=== PATIENT | female | born 1960 | race Caucasian/White ===

== ENCOUNTER → 2016-06-05 | Outpatient (CLI) | payer OTHER ==
[~2016-06-05] MED LIST: ALBUAER2; ASPEC81 PO; CLON1TAB3 PO; COQ10100 PO; CYM/30 PO; FISHOIL PO; FRRS300 PO; GLUCTAB7; LISI5TAB3 PO; MINO100C22 PO; MULT-222; PREG1CAP70 PO; SIMV40TA2 PO; SYMIN160 INH; TIOTCAP INH; TOVIAZ PO; TRAM-10 PO; TRAZ100T29 PO; [UNRECOGNIZED DRUG - OTHER]
--- NOTE | 2016-06-05 15:31 | DIAGNOSTIC IMAGING REPORT ---
RIGHT SHOULDER 3 VIEWS CLINICAL HISTORY: Right shoulder pain. FINDINGS: 3 views of the right shoulder are obtained. No prior studies are available for comparison at the time of dictation. The skeletal structures are osteopenic. No fracture or dislocation is seen. Mild productive change is identified at the acromioclavicular joint. The overlying soft tissues are within normal limits. Imaged right lung parenchyma appears clear. Midline sternotomy wires are noted. IMPRESSION: Mild degenerative change as above. No acute bony abnormality is seen in the right shoulder. Electronically signed by: Biju Cardona M.D. 06/05/2016 3:28 PM Dictated Date/Time: 06/05/2016 3:28 PM
== END | disposition home or self-care (01) ==
LOC: C.RAD1850 15:16
PROVIDERS: ATTEND Internal Medicine
DX: M25.511 Pain in right shoulder (principal)

== ENCOUNTER → 2016-06-05 | Outpatient (CLI) | payer OTHER | END | disposition home or self-care (01) | LOC: C.LABBFT 14:32 | PROVIDERS: ATTEND Internal Medicine | DX: M85.80 Other specified disorders of bone density and structure, unspecified site (principal) ==

== ENCOUNTER → 2016-07-15 | Outpatient (CLI) | payer OTHER ==
[~2016-07-15] MED LIST changes: +PERFLUTREN LIPID MICROSPHERE (DEFINITY) IV ONE
--- NOTE | 2016-07-15 19:06 | ECHOCARDIOGRAM REPORT ---
*NOTICE TO RECEIVING DEMOCRAT AGENCY This information is strictly Confidential and protected under [place] law. [place] law prohibits you from making any further disclosure of this information unless further disclosure is expressly permitted by the written consent of the person to whom it pertains or is authorized by law. A general authorization for the release of medical or other information is not sufficient for this purpose. Hospital accepts no responsibility if the information is made available to any other person, INCLUDING THE PATIENT. Interpretation Summary * Name: DEANDRE THOMPSON Study Date: 07/15/2016 01:40 PM BP: 111/37 mmHg * Patient Location: [facility] HR: 56 * : 1960 (M/d/yyyy) Gender: Female Height: 64 in * Age: 56 yrs Ethnicity: CA Weight: 180 lb * Ordering Physician: Ga Villareal * Referring Physician: Ga Villareal * Performed By: Richelle Wyatt RDCS * * Reason For Study: COPD * BSA: 1.9 m2 * History: COPD * -- Conclusions -- * 1. Normal LV size and wall thickness. * 2. Normal LV function. LVEF 55-60%. Paradoxical septal motion consistent with post-operative state. * 3. RV not well visualized. Grossly normal RV function. * 4. Status post mitral valve repair with annuloplasty ring. No mitral regurgitation. Minimally elevated transvalvular gradients (MG 4 mmHg). * 5. Compared with prior study on 08/01/2010: Mitral valve repair is new. Procedure Details * A contrast injection of Definity was performed to improve assessment of LV function. * Contrast was injected into an intravenous site in the right arm. * One vial of Definity ultrasound contrast was diluted in normal saline to a total volume of 10 ml. A total of '2' ml of solution was administered during imaging. * Lot # [id number] of Definity utilized for procedure. * Expiration date 1 JUL 18. * The attending nurse who injected the contrast agent was JUANPABLO GARSIA RN. Left Ventricle * The left ventricle is grossly normal size. * There is normal left ventricular wall thickness. * Ejection Fraction = 55-60%. * Septal motion is consistent with post-operative state. Right Ventricle * The right ventricle is not well visualized. * The right ventricular systolic function is qualitatively normal. Atria * The left atrial size is normal. * Right atrium not well visualized. * No ASD detected; PFO is not assessed. Mitral Valve * Transvalvular gradients minimally elevated. * Significant mitral regurgitation is absent. * An annuloplasty ring is noted in the mitral position. Tricuspid Valve * The tricuspid valve is not well visualized, but is grossly normal. * There is no tricuspid stenosis. * There is trace tricuspid regurgitation. * Right ventricular systolic pressure is normal. Aortic Valve * The aortic valve opens well. * No hemodynamically significant valvular aortic stenosis. * There is no significant aortic regurgitation. Pulmonic Valve * The pulmonary valve is inadequately visualized, but the Doppler data is adequate for interpretation. * There is no pulmonic valvular stenosis. * Trace pulmonic valvular regurgitation. Great Vessels * The aortic root and proximal ascending aorta are normal sized. Pericardium/Pleural * There is no pericardial effusion. * There is no pleural effusion. Great Vessels * Not well visualized MMode 2D Measurements and Calculations IVSd 1.1 cm IVSs 1.7 cm LVIDd 5.3 cm LVIDs 3.5 cm LVPWd 1.1 cm LVPWs 1.5 cm IVS/LVPW 0.93 FS 34.3 % EDV(Teich) 134.2 ml ESV(Teich) 49.7 ml EF(Teich) 62.9 % EDV(cubed) 147.2 ml ESV(cubed) 41.7 ml EF(cubed) 71.7 % % IVS thick 61.0 % % LVPW thick 31.3 % LV mass(C)d 223.6 grams LV mass(C)dI 119.5 grams/m\S\2 LV mass(C)s 209.7 grams LV mass(C)sI 112.1 grams/m\S\2 SV(Teich) 84.5 ml SI(Teich) 45.2 ml/m\S\2 SV(cubed) 105.6 ml SI(cubed) 56.4 ml/m\S\2 Ao root diam 2.6 cm Ao root area 5.3 cm\S\2 LA dimension 3.7 cm LA/Ao 1.4 LVAd ap4 27.6 cm\S\2 LVLd ap4 7.1 cm EDV(MOD-sp4) 89.0 ml EDV(sp4-el) 91.3 ml LVAs ap4 16.0 cm\S\2 LVLs ap4 5.7 cm ESV(MOD-sp4) 37.5 ml ESV(sp4-el) 38.1 ml EF(MOD-sp4) 57.9 % EF(sp4-el) 58.2 % LVAd ap2 27.0 cm\S\2 LVLd ap2 7.6 cm EDV(MOD-sp2) 81.4 ml EDV(sp2-el) 82.1 ml LVAs ap2 16.0 cm\S\2 LVLs ap2 5.8 cm ESV(MOD-sp2) 38.7 ml ESV(sp2-el) 37.3 ml EF(MOD-sp2) 52.5 % EF(sp2-el) 54.6 % LVLd %diff 6.6 % EDV(MOD-bp) 88.0 ml LVLs %diff 1.2 % ESV(MOD-bp) 37.2 ml EF(MOD-bp) 57.7 % SV(MOD-sp4) 51.5 ml SI(MOD-sp4) 27.5 ml/m\S\2 SV(MOD-sp2) 42.7 ml SI(MOD-sp2) 22.8 ml/m\S\2 SV(MOD-bp) 50.8 ml SI(MOD-bp) 27.2 ml/m\S\2 SV(sp4-el) 53.1 ml SI(sp4-el) 28.4 ml/m\S\2 SV(sp2-el) 44.8 ml SI(sp2-el) 24.0 ml/m\S\2 Doppler Measurements and Calculations MV E max meghann 189.8 cm/sec MV A max meghann 128.3 cm/sec MV E/A 1.5 MV dec time 0.34 sec Ao V2 max 163.7 cm/sec Ao max PG 10.7 mmHg Ao max PG (full) 4.3 mmHg LV V1 max PG 6.4 mmHg LV V1 max 126.9 cm/sec TR max meghann 222.5 cm/sec
== END | disposition home or self-care (01) ==
LOC: C.CPL 12:20
PROVIDERS: ATTEND Internal Medicine Interventional Cardiology
DX: J44.9 Chronic obstructive pulmonary disease, unspecified (principal)

== ENCOUNTER → 2016-11-03 | Outpatient (CLI) | payer OTHER ==
[~2016-11-03] MED LIST changes: -PERFLUTREN LIPID MICROSPHERE (DEFINITY) IV ONE
[2016-11-03 17:32] LABS: MEAN CELL VOLUME 101.3 fL (80-100); MEAN CORPUSCULAR HEMOGLOBIN 33.5 pg (25-34); MEAN CORPUSCULAR HGB CONC 33.1 g/dl (32-36); MEAN PLATELET VOLUME 12.5 fL (7.4-10.4); PLATELET COUNT 162 K/uL (130-400); RED BLOOD COUNT 3.85 M/uL (4.2-5.4); WHITE BLOOD COUNT 8.04 K/uL (4.8-10.8)
[2016-11-03 18:01] LABS: ALT/SGPT 34 U/L (12-78); AST/SGOT 18 U/L (15-37); BLOOD UREA NITROGEN 19 mg/dl (7-18); BUN/CREATININE RATIO 17.1 (10-20); CALCIUM 9.3 mg/dl (8.5-10.1); CARBON DIOXIDE 26 mmol/L (21-32); CHLORIDE 107 mmol/L (98-107); GLUCOSE 93 mg/dl (70-99); POTASSIUM 4.6 mmol/L (3.5-5.1); SODIUM 139 mmol/L (136-145)
[2016-11-03 18:09] LABS: ALB/GLOB RATIO 0.9 (0.9-2); ALKALINE PHOSPHATASE 180 U/L (45-117)
== END | disposition home or self-care (01) ==
LOC: C.LABBFT 10:24
PROVIDERS: ATTEND Physician Assistant Medical
DX: E03.9 Hypothyroidism, unspecified (principal); R53.83 Other fatigue

== ENCOUNTER → 2016-11-09 | Outpatient (CLI) | payer OTHER ==
--- NOTE | 2016-11-09 09:08 | DIAGNOSTIC IMAGING REPORT ---
THYROID ULTRASOUND HISTORY: Abnormal thyroid function tests E03.9 Hypothyroidism COMPARISON: None. FINDINGS: Right lobe: Maximum dimension 3.7 cm. Uniform echogenicity. Left lobe: Maximum dimension 3.9 cm. Uniform echogenicity. Isthmus: No nodules. IMPRESSION: Normal thyroid ultrasound. Electronically signed by: Inderjit Hirsch M.D. 11/09/2016 9:07 AM Dictated Date/Time: 11/09/2016 9:05 AM
== END | disposition home or self-care (01) ==
LOC: C.ULTR 08:34
PROVIDERS: ATTEND Internal Medicine
DX: E03.9 Hypothyroidism, unspecified (principal)

== ENCOUNTER → 2017-02-09 | Outpatient (CLI) | payer OTHER ==
[~2017-02-09] VITALS: Ht 154.9 cm; Wt 80.8 kg
[2017-02-09 14:20] VITALS: BP 114/52; PULSE 51; Ht 154.9 cm; Wt 80.8 kg
== END | disposition home or self-care (01) ==
LOC: C.NEUR 13:30
PROVIDERS: ATTEND Physician Assistant Medical
DX: R53.83 Other fatigue (principal); G47.9 Sleep disorder, unspecified; R06.83 Snoring; I25.10 Atherosclerotic heart disease of native coronary artery without angina pectoris; J44.9 Chronic obstructive pulmonary disease, unspecified; E78.00 Pure hypercholesterolemia, unspecified; E03.9 Hypothyroidism, unspecified; M85.80 Other specified disorders of bone density and structure, unspecified site; I25.2 Old myocardial infarction; Z87.891 Personal history of nicotine dependence; Z87.442 Personal history of urinary calculi; Z90.49 Acquired absence of other specified parts of digestive tract; Z90.89 Acquired absence of other organs; Z80.3 Family history of malignant neoplasm of breast; Z83.3 Family history of diabetes mellitus; Z79.82 Long term (current) use of aspirin

== ENCOUNTER → 2017-03-16 | Outpatient (CLI) | payer OTHER ==
--- NOTE | 2017-03-17 06:03 | PAP/PSG TECHNICIAN REPORT ---
[facility] Fountain Worker Polysomnogram Report Study name: None Report date: 03/17/2017 Study date: 03/16/2017 Referring Physician: Bell Olson PA-C Name: DEANDRE THOMPSON Interpreting Physician: Leon Little M.D. Date of : 1960 Fountain Worker: Nina Rodriguez RPSGT. Sex: Female Age: 56 Study Type: PSG Weight: 178 lbs 15.25 in Height: 56 years, Height 5' 2" Neck Circum: BMI: 32.55 Medications: ASPIRIN 81 MG, CLINDAMYCIN 300 MG, CLONAZEPAM 1 MG, CYMBALTA 60 MG, IPRATROPIUM BROMIDE 0.06% NASAL SOLN, LEVOTHYROXINE 75 MCG, LISINOPRIL 5 MG, LYRICA 150 MG, METOPROLOL 25 MG, SIMVASTATIN 40 MG, SPIRIVA HANDIHALER 18 MCG, SULFAMETHOXAZOLE-TRIMETHOPRIM 800-160 MG, TOPIRAMATE 100 MG, TRAMADOL 50 MG, TRAZODONE 100 MG, VENTOLIN HFA, VIT D3 400 UNIT Patient History 56 yr-old female here for a baseline study. She has a history of snoring, daytime sleepiness, and sleep maintenance and sleep onset insomnia. Her [employer] scale is 4. The test was started on room air. ETCO2 testing was included in this study. Room 5 Parameters Monitored NPSG: E1-M2, E2-M1, Fp1-M2, Fp2-M1, F3-M2, F4-M2, F4-M1, C3-M2, C4-M2, C4-M1, O1-M2, O2-M2, O2-M1, T3-M2, T4-M1, P3-M2, P4-M1, CHIN1, CHIN2, HR, EKG, Legs, PFLOW, SNOR, FLOW, CFLOW, Tidal Volume, THOR, ABDO, SpO2, PLTH, CPRESS, ETCO2 Wave, ETCO2, pH Sleep Architecture Sleep Stages Time at Lights Off 10:57:26 PM STAGES Time (min.) TST (%) Time at Lights On 5:43:26 AM Wake 51.0 -- Total Recording Time (TRT) 406.00 min. N1 44.5 13 Total Sleep Period (TSP) 385.5 min. N2 283.5 80 Total Sleep Time (TST) 355.0min. N3 27.0 8 Awake Time 51.0 min. REM 0.0 0 Wake after Sleep Onset 30.5 min. Sleep Efficiency (SE) 87 % Sleep Onset Latency (LYNDA) 20.5 min. Number of Stage 1 Shifts None Awakenings 14 Stage Changes 98 Number of REM periods N/A REM 0.0 0 REM Latency NONE min. NREM 355.0 100 Body Position Analysis Supine Right Left Side Prone Vertical Total Sleep Time (min.) 103.6 243.9 32.0 275.86 0.0 0.3 Total Sleep Time (%) 22% 69% 9% 78 0% N/A% Total Sleep Time REM (min.) 0.0 0.0 0.0 None 0.0 0.0 Total Sleep Time NREM (min.) 79.1 243.9 32.0 None 0.0 0.0 Intermittent Wake (min.) 24.5 6.5 19.4 None 0.0 0.3 Total Sleep Period (%) 26% None None None None None Arousals Myoclonus (PLM) * Events Count Index Events Count Index Spontaneous 39 7 Events Awake (PLMW) 78 91.8 Respiratory 2 0.3 Events Asleep w/ Arousal (PLMA) 13 2.2 PLM 13 2 Events Asleep w/o Arousal (PLMS) 205 34.6 Snoring 4 1 Total Asleep 218 36.8 Total 58 10 Total 296 44 Respiratory Analysis * CA OA MA CH H RERA Total Count 0 3 0 0 2 2 5 Index 0.0 0.5 0.0 0 0.3 0 1.2 Mean Duration 0.0 16.5 0.0 0.00 22.8 17.1 18.5 Longest Duration 0.0 18.2 0.0 0.00 0.0 17.3 23.4 Respiratory Event Summary Total Supine ~Supine Right Left Prone REM NREM Apneas Count 3 3 0 0 0 N/A N/A 3 Index 0.5 2 0 0.0 0.0 N/A N/A 1 Hypopneas (4% Desat) Count 2 2 0 0 0 N/A N/A 2 Index 0.3 1.5 0 0.0 0.0 N/A N/A 0.3 Apneas & All Hypopneas Count 5 5 0 0 0 N/A N/A 5 Index 0.8 4 0 0 0 N/A N/A 0.8 Respiratory Events (Malter Operator+All Hyp+RERA) Count 5 7 0 0 0 N/A N/A 5 Index 1.2 5 0 0.0 0.0 N/A N/A 1.2 Respiratory Related Arousal Count 2 7 0 0 0 N/A N/A 2 Index 0.3 2 0 0 0 N/A N/A 0 Snoring Analysis Supine Right Left Prone REM NREM Total Snore duration 22.7 min Snores count 786 208 18 N/A N/A 1,012 1,012 Snore mean duration 1.3 Sec Snores index 596 51 34 N/A N/A 171.0 171.0 TST with snoring (%) 6.4% SpO2 Analysis Total REM NREM Awake <50% 0.0 min. 0.0 min. 0.0 min. 0.0 min. 51 - 60% 0.0 min. 0.0 min. 0.0 min. 0.0 min. 61 - 70% 0.0 min. 0.0 min. 0.0 min. 0.0 min. 71 - 80% 0.0 min. 0.0 min. 0.0 min. 0.0 min. 81 - 90% 80.7 min. 0.0 min. 76.5 min. 4.2 min. 91 - 100% 316.0 min. 0.0 min. 277.5 min. 38.5 min. Average 92 0 92 93 Minimum SpO2 85 N/A 85 88 Desaturation Event Index 1.5 0.0 1.5 1.2 # Desat. Events below 89% 4 N/A 4 N/A Time(%) with Saturation below 89% 3.9 0.0 3.7 0.2 Time(min.) with Saturation below 89% 15.5 0.0 14.7 0.8 Heart Rate Analysis End Tidal CO2 Analysis Min (bpm) Max (bpm) Average (bpm) TSP (mins) % of TSP Awake 53 60 56 Above 55 mmHg 0.0 0.0 NREM 48 73 53 50-55 mmHg 0.0 0.0 REM N/A N/A N/A 45-50 mmHg 0.0 0.0 Overall 48 73 53 40-45 mmHg 7.8 2.2 35-40 mmHg 225.8 63.6 30-35 mmHg 64.6 18.2 Average ETCO2 0.3 Supplemental O2 Values Minimum O2 level: None Value Start Time End Time Fountain Worker Comments Ms. Thompson slept in the right, left, and supine positions. No cardiac arrhythmias were noted. PLMs were noted. A few episodes of bruxism were noted. Snoring was noted and scored as a 1-2 on a scale of 1 through 5. (0=no snoring, 5=snoring loud enough to be heard through a closed door or down the murireta way) She awoke to use the restroom one time during the night. Ms. Thompson stated that she slept about the same as usual. The final report will be interpreted and signed by a sleep physician. The completed physician report will then be placed in the patient medical record. Therapy (cm H2O) 0 TIB (min.) 406.0 TST (min.) 355.0 Sleep Onset (min.) 20.5 REM Onset From Sleep (min.) NONE Sleep Efficiency % 87 Wakefulness (%) 13 Wakefulness (min.) 51.0 NREM 1 (%) 13 NREM 1 (min.) 44.5 NREM 2 (%) 80 NREM 2 (min.) 283.5 NREM 3 (%) 8 NREM 3 (min.) 27.0 REM (%) 0 REM (min.) 0.0 # Arousals 58 Arousal Index 10 # Snore 1,012 Snore Index 171.0 AHI 0.8 AHI Supine 4 AHI Non-Supine 0 NREM AHI 0.8 REM AHI N/A RDI 1.2 # Obstructive Apnea 3 # Central Apnea 0 # Mixed Apnea 0 # Hypopneas 2 RERAs 2 Total Respiratory Events 7 Time Below SpO2 89% (min.) 14.7 Mean NREM SpO2 (%) 92 Mean REM SpO2 (%) N/A Mean Sleep SpO2 (%) 92 Min NREM SpO2 (%) 85 Min REM SpO2 (%) N/A Position Supine (min.) 103.6 Position Non-supine (min.) 275.9 LM Index Sleep 36.8 LM Index NREM 36.8 LM Index REM N/A Mean Heart Rate (bpm) 53 Min Heart Rate (bpm) 48
--- NOTE | 2017-03-19 14:24 | POLYSOMNOGRAPH REPORT ---
CLINICAL DATA: A 56-year-old female with BMI of 32.6 referred by Bell Olson and Dr. Lancaster with history of snoring, daytime fatigue, sleep maintenance and sleep onset insomnia. Her Negley sleepiness score is 4/24. SLEEP ARCHITECTURE: Total sleep period was 385.5 minutes. Total sleep time was 355 minutes, all non-REM sleep. Sleep onset latency was 20.5 minutes. Sleep efficiency was 87%. Wake after sleep onset was 30.5 minutes. Sleep consisted of stage N1 13%, stage N2 80%, and stage N3 8%. AROUSAL DATA: Fifty-eight arousals were recorded for an index of 10 per hour. PLM DATA: Yjm-[id number]-zomkjgki limb movements during sleep were noted for an index of 36.8 per hour with arousal index of 2.2 per hour. RESPIRATORY DATA: There was no evidence of clinically significant sleep apnea seen. The AHI was 0.8. The RDI was 1.2. There were 3 obstructive apneic episodes, the longest duration of which was 18.2 seconds. There were 2 hypopneic episodes with a mean duration of 22.8 seconds. There were 2 RERA's, with longest RERA being 17.3 seconds. OXIMETRY DATA: Transient hypoxemia was seen. Oxygen lyudmila was 85%. Mean saturation was 92%. Time below 89% was 15 minutes. EKG: Heart rates ranged from 48-73 beats per minute. No arrhythmias were noted. CRYSTAL REPORT DEVELOPER'S COMMENTS: The patient slept in the right, left, and supine positions. Snoring was mild, rated 1-2 on a scale of 1-5. There were a few episodes of bruxism noted. Mildly elevated limb movements during sleep were noted as well. IMPRESSION: 1. No evidence of clinically significant sleep apnea/hypopnea or nocturnal hypoxemia. 2. Occasional episodes of bruxism. 3. Mild increase in limb movements during the night, possibly consistent with PLMD. RECOMMENDATIONS: The patient should continue to practice good sleep hygiene. Use of a dental appliance for bruxism may be of benefit. Clinical correlation is needed. [facility]
== END | disposition home or self-care (01) ==
LOC: C.NEUR 21:00
PROVIDERS: ATTEND Physician Assistant Medical
DX: R53.83 Other fatigue (principal); R06.83 Snoring; G47.63 Sleep related bruxism

== ENCOUNTER → 2017-09-14 | Outpatient (CLI) | payer OTHER | END | disposition home or self-care (01) | LOC: C.LAB 15:10 | PROVIDERS: ATTEND Physician Assistant Medical | DX: R19.7 Diarrhea, unspecified (principal) ==

== ENCOUNTER → 2017-09-27 | Outpatient (CLI) | payer OTHER ==
[2017-09-27 16:51] LABS: BASO % 0.8 %; BASO ABS # 0.06 K/uL (0-0.2); EOS % 1.7 %; EOS ABS # 0.13 K/uL (0-0.5); HEMOGLOBIN 12.1 g/dL (12.0-16.0); IG# 0.02 K/uL (0.00-0.02); LYMPH % 21.2 %; LYMPH ABS # 1.61 K/uL (1.2-3.4); MEAN CELL VOLUME 96.5 fL (80-100); MEAN CORPUSCULAR HEMOGLOBIN 32.4 pg (25-34); MEAN CORPUSCULAR HGB CONC 33.6 g/dl (32-36); MEAN PLATELET VOLUME 12.8 fL (7.4-10.4); MONO % 7.8 %; MONO ABS # 0.59 K/uL (0.11-0.59); NEUT % 68.2 %; NEUT ABS # 5.17 K/uL (1.4-6.5); PLATELET COUNT 135 K/uL (130-400); RED CELL DISTRIBUTION WIDTH CV 14.6 % (11.5-14.5); RED CELL DISTRIBUTION WIDTH SD 51.9 fL (36.4-46.3); WHITE BLOOD COUNT 7.58 K/uL (4.8-10.8)
[2017-09-27 17:06] LABS: ALBUMIN 3.6 gm/dl (3.4-5.0); ALT/SGPT 29 U/L (12-78); AST/SGOT 19 U/L (15-37); BLOOD UREA NITROGEN 17 mg/dl (7-18); CALCIUM 8.9 mg/dl (8.5-10.1); CARBON DIOXIDE 24 mmol/L (21-32); CREATININE 1.08 mg/dl (0.60-1.20); GLUCOSE 82 mg/dl (70-99); POTASSIUM 3.9 mmol/L (3.5-5.1); SODIUM 137 mmol/L (136-145)
[2017-09-27 17:08] LABS: ALKALINE PHOSPHATASE 206 U/L (45-117); TOTAL PROTEIN 7.9 gm/dl (6.4-8.2)
== END | disposition home or self-care (01) ==
LOC: C.LABBFT 14:34
PROVIDERS: ATTEND Physician Assistant Medical
DX: R19.7 Diarrhea, unspecified (principal)

== ENCOUNTER → 2017-10-06 | Outpatient (CLI) | payer OTHER | END | disposition home or self-care (01) | LOC: C.LABBFT 15:11 | PROVIDERS: ATTEND Physician Assistant Medical | DX: E03.9 Hypothyroidism, unspecified (principal) ==

== ENCOUNTER → 2017-10-18 | Outpatient (CLI) | payer OTHER ==
[~2017-10-18] MED LIST changes: +OPTIRAY 320 IV PRN
--- NOTE | 2017-10-18 19:12 | DIAGNOSTIC IMAGING REPORT ---
CT OF THE ABDOMEN AND PELVIS WITH CONTRAST CLINICAL HISTORY: Persistent diarrhea. COMPARISON STUDY: Upper GI series November 23, 2006. TECHNIQUE: Following IV administration of 94 mL of Optiray-320, axial images of the abdomen and pelvis were obtained from the lung bases to the proximal femurs. Images were reviewed in the axial, sagittal, and coronal planes. IV contrast was administered without complication. A dose lowering technique was utilized adhering to the principles of ALARA. Oral contrast was administered. CT DOSE: 487.12 mGy.cm FINDINGS: There are median sternotomy wires and a prosthetic mitral valve. No biliary ductal dilatation status post cholecystectomy. Moderate pancreatic glandular atrophy is noted without pancreatic ductal dilatation. There are several renal cysts. The spleen and adrenal glands are unremarkable. There is moderate atherosclerotic plaque of the abdominal aorta. Caliber and wall thickness of small and large bowel are normal. The appendix is normal. There is no lymphadenopathy or ascites. There are no suspicious osseous lesions. Postoperative findings within the left groin are noted. Note is made of a 4 mm left renal calculus. No ureteral calculi are present. There is no hydronephrosis. There is slight malrotation of the right kidney. IMPRESSION: 1. No acute process within the abdomen or pelvis. 2. 4 mm left renal calculus. No ureteral calculi. 3. Several renal cysts. Electronically signed by: Ky Purvis M.D. 10/18/2017 7:11 PM Dictated Date/Time: 10/18/2017 3:35 PM
== END | disposition home or self-care (01) ==
LOC: C.CTS 14:21
PROVIDERS: ATTEND Physician Assistant Medical
DX: R19.7 Diarrhea, unspecified (principal)

== ENCOUNTER 2020-08-14 22:18 | Inpatient (IN) ==
[2020-08-14 23:14] LABS: Appearance Urine Clear (Clear); Bilirubin Urine Negative (Negative); Blood Urine Negative (Negative); Color Urine Yellow; Glucose Urine UA Negative (Negative); Ketones Urine Negative (Negative); Leukocyte Esterase Urine Trace (Negative); Nitrite Urine Negative (Negative); Specific Gravity Urine 1.011 (1.000-1.030); Urobilinogen Urine Negative (Negative)
[2020-08-14 23:17] LABS: Protein Urine Trace (Negative)
[2020-08-14 23:42] LABS: Bacteria Urine 1+ (Negative); Epithelial Cell Urine 20-30 /lpf (0-5); RBC Urine 0-4 /hpf (0-4); WBC Urine 0-5 /hpf (0-5)
[2020-08-14 23:45] LABS: Basophils # (auto) 0.03 K/uL (0-0.2); Basophils % (auto) 0.3 %; Eosinophils # (auto) 0.07 K/uL (0-0.5); Eosinophils % (auto) 0.7 %; Hematocrit (blood only) 42.5 % (37-47); Hemoglobin 14.4 g/dL (12.0-16.0); Immature Granulocytes # (auto) 0.02 K/uL (0.00-0.02); Immature Granulocytes % (auto) 0.2 %; Lymphocytes # (auto) 1.82 K/uL (1.2-3.4); Lymphocytes % (auto) 18.8 %; Mean Corpuscular Hgb Conc 33.9 g/dL (32-36); Mean Corpuscular Volume 97.5 fL (80-100); Mean Platelet Volume 10.7 fL (7.4-10.4); Monocytes # (auto) 1.01 K/uL (0.11-0.59); Monocytes % (auto) 10.4 %; Neutrophils # (auto) 6.73 K/uL (1.4-6.5); Neutrophils % (auto) 69.6 %; Platelet Count 246 K/uL (130-400); RDW Coefficient of Variation 14.2 % (11.5-14.5); RDW Standard Deviation 50.8 fL (36.4-46.3); Red Blood Count 4.36 M/uL (4.2-5.4); White Blood Count 9.68 K/uL (4.8-10.8)
[2020-08-15 00:03] LABS: Amphetamines+Metham, Urine Neg (Neg); Barbiturates, Urine Neg (Neg); Benzodiazepine, Urine Neg (Neg); Cocaine, Urine Neg (Neg); MDMA (Ecstacy), Urine Neg (Neg); Methadone, Urine Neg (Neg); Opiate, Urine Neg (Neg); Phencyclidine, Urine Neg (Neg)
[2020-08-15 00:06] LABS: Albumin Level 3.4 gm/dl (3.4-5.0); BUN Creatinine Ratio 15.3 (10-20); Creatinine Clr Calc Pharmacy 51.5 ml/min; Est GFR (Non-African American) 67.3; Salicylate 2.9 mg/dl (2.8-20)
[2020-08-15 00:16] LABS: Albumin Globulin Ratio 0.9 (0.9-2); Bilirubin,Total 0.3 mg/dl (0.2-1); Thyroid Stimulating Hormone 4.42 uIu/ml (0.300-4.500); Total Protein 7.4 gm/dl (6.4-8.2)
--- NOTE | 2020-08-15 01:19 | Emergency Department Note ---
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 Pt was medically cleared and referred to the case management associate for evaluation. Pt seems to be consistent with her thoughts of the poison through the HVAC system in the home. She has thought this through and believes many conditions she suffers from are d/t the black poison. It also seems from the pt that conditions in her home are questionable sanitary and potentially she is hoarding. She speaks of a "declutterer" coming in and her ceiling falling down. Pt is having some skin irritation and ulcers, I would think they are at least exacerbated by hand washing/manganese wheeler. Pt apparently has had some psychosis r/t COVID recently and drank some hand manganese wheeler several weeks ago and was evaluated at our facility. There is a 302 warrant however the patient seems to have some insight today and is willing to sign herself in for psychiatric treatment. A 201 was signed and the pt was accepted by for admission. Triage Nursing notes reviewed. Prior medical records reviewed Vital Signs: reviewed and remarkable for HTN Differential diagnosis: Mood disorder, infection, hypoglycemia, electrolyte abnormalities, cardiac buck rces, intracerebral event, toxicologic, trauma, neurologic, as well as other pathologies. ER treatment provided: Medical clearance Laboratory studies: See below HPI: 60/F arrives for evaluation of psychosis. Tonight the patient was found outside of her apartment attempting to resuscitate her dog, she was screaming and calling for help. Neighbors called the police. Apparently the patient has been complaining about poisoning the area her heating system. Her landlord states she has been refusing to turn on her heat due to "black smoke." She believes that a poison has been released and has affected both her and the dog. The patient moved back into the apartment about 1 month ago. She admits that she has "too much stuff" and also states she has been having difficulty with Covid anxiety. She had a falling out with her boyfriend and decided she could no longer live with him, therefore moved back to her own apartment. She states nobody else in her apartment building has been getting ill because they "each have separate heating systems." She has contacted her landlord multiple times within the last 2 weeks regarding this poison gas. She believes the ulcerations on her fingers, abdominal bloating, skin redness and hair thinning are related to the cast being released. Tonight she states her dog stopped breathing, she used her saline nasal spray in the dog's nose, blew air into his mouth, took him outside and squirted the saline on his abdomen, trying to get him to start breathing. She reports his eyes were "rolling up in his head" but he started breathing and is now at her boyfriend's home. ROS: See above HPI for pertinent positives & negatives. A total of 10 systems reviewed and were otherwise negative. PAST MEDICAL HISTORY:See Below PAST SURGICAL HISTORY:See Below FAMILY HISTORY:See Below SOCIAL HISTORY:See Below HOME MEDICATIONS:See Below ALLERGIES:See Below VITALS:See Below PHYSICAL EXAMINATION: Vital signs reviewed. General: Well-appearing 60-year-old female, in no significant distress. HEENT: No scleral icterus, PERRLA, neck supple. Atraumatic. Cardiovascular: Regular rate and rhythm, no extra sounds. Pulmonary: Clear to auscultation bilaterally, normal work of breathing. Abdomen: Soft, nontender, nondistended, positive bowel sounds. Musculoskeletal: Atraumatic, no peripheral edema. Neurologic: Patient awake alert and oriented x 3 Psych: Neg SI, Neg HI. Patient denies auditory and visual hallucinations. Skin: Warm, dry, several ulcerations noted to the fingers bilaterally, notably the thumb and index fingers. Antonietta Bah MD Past Med/Surg History Medical History (Updated 08/15/20 @ 11:25 by Ghazal Aviles MD) Chronic osteomyelitis Chronic pain of right wrist COPD (chronic obstructive pulmonary disease) Current smoker Fibromyalgia GERD (gastroesophageal reflux disease) History of myocardial infarction in adulthood HTN (hypertension) Hyperlipidemia Hypothyroidism (acquired) Long-term use of high-risk medication Nicotine addiction PAD (peripheral artery disease) Unspecified psychosis Surgical History H/O arthroscopic knee surgery History of cholecystectomy History of mitral valve repair History of tonsillectomy Family History Mother Breast cancer Uncle Diabetes Brother Diabetes Grandfather (Paternal) Diabetes Father Diabetes Grandmother (Maternal) Diabetes Colorectal cancer Social History Smoking Status: Current every day smoker Tobacco Type: Cigarettes packs per day: 1; Cigarettes Per Day: 20; Second Hand Exposure: Yes; Hx Alcohol Use: Yes Alcohol type: wine Preferred Language: Nepali Communication Ability: Effective Beliefs That Will Affect Care: None marital status: Single current occupational status: disabled Feels Safe at Home: No Assistive Devices: Glasses Allergies Allergies Allergy/AdvReac Type Severity Reaction Status Date / Time Penicillins Allergy Unknown RASH Verified 08/14/20 23:45 perphenazine Allergy Unknown SWELLING Verified 08/14/20 23:45 ALL OVER BODY prednisone AdvReac Severe not able Verified 08/14/20 23:45 to sleep azithromycin AdvReac Hives Verified 08/14/20 23:45 Home Meds Home Medications Medication Instructions Recorded Confirmed cholecalciferol (vitamin D3) 50 2,000 units PO DAILY 03/08/19 08/15/20 mcg (2,000 unit) capsule melatonin 10 mg tablet 20 mg PO HS tab 03/28/19 08/15/20 clonazepam 1 mg tablet 0.5 mg PO BID tab 02/22/20 08/15/20 duloxetine [Cymbalta] 60 mg PO DAILY 06/20/20 08/15/20 aspirin 81 mg tablet,delayed 81 mg PO DAILY 07/03/20 08/15/20 release coenzyme Q10 [CoQ-10] 100 mg PO DAILY 08/15/20 08/15/20 omega-3 fatty acids-fish oil 1 cap PO DAILY 08/15/20 08/15/20 [[place] 3 Fish Oil] quetiapine 25 mg PO BID 08/15/20 08/15/20 quetiapine 50 mg PO HS 08/15/20 08/15/20 trazodone 100 mg PO HS PRN 08/15/20 08/15/20 Previous Rx's Medication Instructions Recorded budesonide-formoterol HFA 160 2 puffs INHALATION BID #10.2 gm 03/08/19 mcg-4.5 mcg/actuation aerosol inhaler tiotropium bromide 2.5 2 puffs INHALATION DAILY #4 gm 03/08/19 mcg/actuation mist for inhalation metoprolol tartrate 25 mg tablet 25 mg PO BID #180 tab 09/15/19 simvastatin 40 mg tablet 40 mg PO QPM #90 tab 03/22/20 gabapentin 400 mg capsule 400 mg PO TID #90 cap 05/02/20 compress.stocking,knee,reg,med #2 ea 07/09/20 loratadine 10 mg capsule 10 mg PO DAILY #30 cap 07/22/20 albuterol sulfate 90 mcg/actuation 2 puff INHALATION QID PRN #18 g 08/09/20 aerosol inhaler ipratropium bromide 42 mcg (0.06 See Rx Instructions .ROUTE 08/09/20 %) nasal spray .COMPLEX #45 spray levothyroxine 88 mcg tablet 88 mcg PO DAILY #30 tab 08/12/20 tramadol 50 mg tablet See Rx Instructions PO TID PRN 08/12/20 #180 tab Results & Data (ED) Vital Signs Vital Signs - 24 hr 08/14/20 22:31 08/15/20 01:13 Temperature 37.1 C Temperature Source Oral Pulse Rate 97 H Pulse Rate [Left Finger] 88 Respiratory Rate 18 16 Respiratory Effort / Characteristics Non-Labored Spontaneous Non-Labored Spontaneous Respiratory Depth Normal Normal Respiratory Pattern Regular Blood Pressure 145/64 H Blood Pressure [Left Arm] 116/54 L Blood Pressure Mean 91 Blood Pressure Mean [Left Arm] 74 Blood Pressure Position [Left Arm] Lying Pulse Oximetry 99 97 Oxygen Delivery Method Room Air Room Air Sepsis Recent Fever Within 48 Hours No Sepsis New/Unexplained Change in Mental Status No Sepsis Action Taken by Nursing No Action Required Home Medications Current Medication List: was personally reviewed by me Laboratory Data Attestation: I reviewed the patient's lab results. Result diagrams: 08/14/20 23:26 08/14/20 23:26 Lab Results 08/14/20 08/14/20 08/14/20 Range/Units 22:30 22:30 23:24 WBC (4.8-10.8) K/uL RBC (4.2-5.4) M/uL Hgb (12.0-16.0) g/dL Hct (37-47) % MCV (80-100) fL MCH (25-34) pg MCHC (32-36) g/dL RDW Std Deviation (36.4-46.3) fL RDW Coeff of Samreen (11.5-14.5) % Plt Count (130-400) K/uL MPV (7.4-10.4) fL Immature Gran % (Auto) % Neut % (Auto) % Lymph % (Auto) % [place] % (Auto) % Eos % (Auto) % Baso % (Auto) % Neut # (Auto) (1.4-6.5) K/uL Lymph # (Auto) (1.2-3.4) K/uL [place] # (Auto) (0.11-0.59) K/uL Eos # (Auto) (0-0.5) K/uL Baso # (Auto) (0-0.2) K/uL Immature Gran # (Auto) (0.00-0.02) K/uL Sodium (136-145) mmol/L Potassium (3.5-5.1) mmol/L Chloride (98-107) mmol/L Carbon Dioxide (21-32) mmol/L Anion Gap (3-11) BUN (7-18) mg/dl Creatinine (0.6-1.2) mg/dl Est Cr Clr Drug Dosing ml/min Est GFR ( Amer) Est GFR (Non-Af Amer) BUN/Creatinine Ratio (10-20) Glucose (70-99) mg/dl Calcium (8.5-10.1) mg/dl Total Bilirubin (0.2-1) mg/dl AST (15-37) U/L ALT (12-78) U/L Alkaline Phosphatase (45-117) U/L Total Protein (6.4-8.2) gm/dl Albumin (3.4-5.0) gm/dl Globulin (2.5-4.0) gm/dl Albumin/Globulin Ratio (0.9-2) TSH (0.300-4.500) uIu/ml Urine Color Yellow Urine Appearance Clear (Clear) Urine pH 8.0 H (4.5-7.5) Ur Specific [place] 1.011 (1.000-1.030) Urine Protein Trace H (Negative) Urine Glucose (UA) Negative (Negative) Urine Ketones Negative (Negative) Urine Blood Negative (Negative) Urine Nitrite Negative (Negative) Urine Bilirubin Negative (Negative) Urine Urobilinogen Negative (Negative) Ur Leukocyte Esterase Trace H (Negative) Urine WBC (Auto) Not Reportable Urine RBC (Auto) Not Reportable U Hyaline Cast (Auto) Not Reportable U Epithel Cells (Auto) Not Reportable Urine Bacteria (Auto) Not Reportable Urine RBC 0-4 (0-4) /hpf Urine WBC 0-5 (0-5) /hpf Ur Epithelial Cells 20-30 H (0-5) /lpf Urine Bacteria 1+ H (Negative) Salicylates (2.8-20) mg/dl Urine Opiates Screen Neg (Neg) Ur Methadone, Qual Neg (Neg) Acetaminophen (10-30) ug/ml Urine Barbiturates Neg (Neg) Ur Phencyclidine (PCP) Neg (Neg) U Amphetamin/Meth Scrn Neg (Neg) MDMA (Ecstasy) Screen Neg (Neg) U Benzodiazepines Scrn Neg (Neg) Ur Cocaine Metabolite Neg (Neg) U Marijuana (THC) Screen Neg (Neg) Ethyl Alcohol mg/dL (0-3) mg/dl COVID-19 Eval Order Cov[facility]19 [facility] SARS-CoV-2, RNA, NAAT (NEGATIVE) 08/14/20 08/14/20 08/14/20 Range/Units 23:24 23:26 23:26 WBC 9.68 (4.8-10.8) K/uL RBC 4.36 (4.2-5.4) M/uL Hgb 14.4 (12.0-16.0) g/dL Hct 42.5 (37-47) % MCV 97.5 (80-100) fL MCH 33.0 (25-34) pg MCHC 33.9 (32-36) g/dL RDW Std Deviation 50.8 H (36.4-46.3) fL RDW Coeff of Samreen 14.2 (11.5-14.5) % Plt Count 246 (130-400) K/uL MPV 10.7 H (7.4-10.4) fL Immature Gran % (Auto) 0.2 % Neut % (Auto) 69.6 % Lymph % (Auto) 18.8 % [place] % (Auto) 10.4 % Eos % (Auto) 0.7 % Baso % (Auto) 0.3 % Neut # (Auto) 6.73 H (1.4-6.5) K/uL Lymph # (Auto) 1.82 (1.2-3.4) K/uL [place] # (Auto) 1.01 H (0.11-0.59) K/uL Eos # (Auto) 0.07 (0-0.5) K/uL Baso # (Auto) 0.03 (0-0.2) K/uL Immature Gran # (Auto) 0.02 (0.00-0.02) K/uL Sodium 139 (136-145) mmol/L Potassium 4.0 (3.5-5.1) mmol/L Chloride 108 H (98-107) mmol/L Carbon Dioxide 27 (21-32) mmol/L Anion Gap 4.0 (3-11) BUN 14 (7-18) mg/dl Creatinine 0.93 (0.6-1.2) mg/dl Est Cr Clr Drug Dosing 51.5 ml/min Est GFR ( Amer) 78.0 Est GFR (Non-Af Amer) 67.3 BUN/Creatinine Ratio 15.3 (10-20) Glucose 121 H (70-99) mg/dl Calcium 10.0 (8.5-10.1) mg/dl Total Bilirubin 0.3 (0.2-1) mg/dl AST 28 (15-37) U/L ALT 26 (12-78) U/L Alkaline Phosphatase 145 H (45-117) U/L Total Protein 7.4 (6.4-8.2) gm/dl Albumin 3.4 (3.4-5.0) gm/dl Globulin 4.0 (2.5-4.0) gm/dl Albumin/Globulin Ratio 0.9 (0.9-2) TSH 4.420 (0.300-4.500) uIu/ml Urine Color Urine Appearance (Clear) Urine pH (4.5-7.5) Ur Specific [place] (1.000-1.030) Urine Protein (Negative) Urine Glucose (UA) (Negative) Urine Ketones (Negative) Urine Blood (Negative) Urine Nitrite (Negative) Urine Bilirubin (Negative) Urine Urobilinogen (Negative) Ur Leukocyte Esterase (Negative) Urine WBC (Auto) Urine RBC (Auto) U Hyaline Cast (Auto) U Epithel Cells (Auto) Urine Bacteria (Auto) Urine RBC (0-4) /hpf Urine WBC (0-5) /hpf Ur Epithelial Cells (0-5) /lpf Urine Bacteria (Negative) Salicylates (2.8-20) mg/dl Urine Opiates Screen (Neg) Ur Methadone, Qual (Neg) Acetaminophen (10-30) ug/ml Urine Barbiturates (Neg) Ur Phencyclidine (PCP) (Neg) U Amphetamin/Meth Scrn (Neg) MDMA (Ecstasy) Screen (Neg) U Benzodiazepines Scrn (Neg) Ur Cocaine Metabolite (Neg) U Marijuana (THC) Screen (Neg) Ethyl Alcohol mg/dL (0-3) mg/dl COVID-19 Eval Order SARS-CoV-2, RNA, NAAT NEGATIVE (NEGATIVE) 08/14/20 08/14/20 Range/Units 23:26 23:26 WBC (4.8-10.8) K/uL RBC (4.2-5.4) M/uL Hgb (12.0-16.0) g/dL Hct (37-47) % MCV (80-100) fL MCH (25-34) pg MCHC (32-36) g/dL RDW Std Deviation (36.4-46.3) fL RDW Coeff of Samreen (11.5-14.5) % Plt Count (130-400) K/uL MPV (7.4-10.4) fL Immature Gran % (Auto) % Neut % (Auto) % Lymph % (Auto) % [place] % (Auto) % Eos % (Auto) % Baso % (Auto) % Neut # (Auto) (1.4-6.5) K/uL Lymph # (Auto) (1.2-3.4) K/uL [place] # (Auto) (0.11-0.59) K/uL Eos # (Auto) (0-0.5) K/uL Baso # (Auto) (0-0.2) K/uL Immature Gran # (Auto) (0.00-0.02) K/uL Sodium (136-145) mmol/L Potassium (3.5-5.1) mmol/L Chloride (98-107) mmol/L Carbon Dioxide (21-32) mmol/L Anion Gap (3-11) BUN (7-18) mg/dl Creatinine (0.6-1.2) mg/dl Est Cr Clr Drug Dosing ml/min Est GFR ( Amer) Est GFR (Non-Af Amer) BUN/Creatinine Ratio (10-20) Glucose (70-99) mg/dl Calcium (8.5-10.1) mg/dl Total Bilirubin (0.2-1) mg/dl AST (15-37) U/L ALT (12-78) U/L Alkaline Phosphatase (45-117) U/L Total Protein (6.4-8.2) gm/dl Albumin (3.4-5.0) gm/dl Globulin (2.5-4.0) gm/dl Albumin/Globulin Ratio (0.9-2) TSH (0.300-4.500) uIu/ml Urine Color Urine Appearance (Clear) Urine pH (4.5-7.5) Ur Specific [place] (1.000-1.030) Urine Protein (Negative) Urine Glucose (UA) (Negative) Urine Ketones (Negative) Urine Blood (Negative) Urine Nitrite (Negative) Urine Bilirubin (Negative) Urine Urobilinogen (Negative) Ur Leukocyte Esterase (Negative) Urine WBC (Auto) Urine RBC (Auto) U Hyaline Cast (Auto) U Epithel Cells (Auto) Urine Bacteria (Auto) Urine RBC (0-4) /hpf Urine WBC (0-5) /hpf Ur Epithelial Cells (0-5) /lpf Urine Bacteria (Negative) Salicylates 2.9 (2.8-20) mg/dl Urine Opiates Screen (Neg) Ur Methadone, Qual (Neg) Acetaminophen 3 L (10-30) ug/ml Urine Barbiturates (Neg) Ur Phencyclidine (PCP) (Neg) U Amphetamin/Meth Scrn (Neg) MDMA (Ecstasy) Screen (Neg) U Benzodiazepines Scrn (Neg) Ur Cocaine Metabolite (Neg) U Marijuana (THC) Screen (Neg) Ethyl Alcohol mg/dL < 3.0 (0-3) mg/dl COVID-19 Eval Order SARS-CoV-2, RNA, NAAT (NEGATIVE) Administered Medications Acetaminophen (Acetaminophen 325 Mg Tab) 650 mg PO Q4H PRN PRN Reason: Headache or Minor Fever Stop: 09/14/20 02:40 Last Admin: 08/15/20 15:51 Dose: 650 mg Documented by: [id number] Admin: 08/15/20 06:31 Dose: 650 mg Documented by: [id number] Aspirin (Aspirin 81 Mg Ectab) 81 mg PO DAILY DUNIA Stop: 09/14/20 08:59 Last Admin: 08/17/20 08:52 Dose: 81 mg Documented by: [id number] Admin: 08/16/20 09:41 Dose: 81 mg Documented by: [id number] Admin: 08/15/20 11:20 Dose: 81 mg Documented by: [id number] Clonazepam (Clonazepam 0.5 Mg Tab) 0.5 mg PO HS DUNIA Stop: 09/14/20 21:59 Last Admin: 08/16/20 22:09 Dose: 0.5 mg Documented by: [id number] Admin: 08/15/20 21:07 Dose: 0.5 mg Documented by: [id number] Clonazepam (Clonazepam 0.25 Mg Tab) 0.25 mg PO QAM DUNIA Stop: 09/14/20 08:59 Last Admin: 08/17/20 08:52 Dose: 0.25 mg Documented by: [id number] Admin: 08/16/20 09:46 Dose: 0.25 mg Documented by: [id number] Admin: 08/15/20 11:26 Dose: 0.25 mg Documented by: [id number] Duloxetine HCl (Duloxetine Hcl 30 Mg Cap) 90 mg PO DAILY [facility] Stop: 09/14/20 10:44 Last Admin: 08/17/20 08:51 Dose: 90 mg Documented by: [id number] Admin: 08/16/20 09:37 Dose: 90 mg Documented by: [id number] Admin: 08/15/20 11:57 Dose: 90 mg Documented by: [id number] Fluticasone/Vilanterol (Fluticasone/Vilanterol 100/25mcg 14 Puffs/Inhaler) 1 puffs INH DAILY DUNIA; Protocol Stop: 09/14/20 08:59 Last Admin: 08/17/20 09:17 Dose: Not Given Documented by: [id number] Admin: 08/16/20 09:30 Dose: Not Given Documented by: [id number] Admin: 08/15/20 11:31 Dose: Not Given Documented by: [id number] Gabapentin (Gabapentin 400 Mg Cap) 400 mg PO TID DUNIA Stop: 09/14/20 08:59 Last Admin: 08/17/20 08:52 Dose: 400 mg Documented by: [id number] Admin: 08/16/20 22:08 Dose: 400 mg Documented by: [id number] Admin: 08/16/20 13:57 Dose: 400 mg Documented by: [id number] Admin: 08/16/20 09:44 Dose: 400 mg Documented by: [id number] Admin: 08/15/20 21:11 Dose: 400 mg Documented by: [id number] Admin: 08/15/20 14:00 Dose: 400 mg Documented by: [id number] Admin: 08/15/20 11:22 Dose: 400 mg Documented by: [id number] Levothyroxine Sodium (Levothyroxine Sodium 88 Mcg Tablet) 88 mcg PO DAILYBB [facility] Stop: 09/15/20 07:59 Last Admin: 08/17/20 08:57 Dose: 88 mcg Documented by: [id number] Admin: 08/16/20 06:39 Dose: 88 mcg Documented by: [id number] Admin: 08/15/20 11:58 Dose: 88 mcg Documented by: [id number] Admin: 08/15/20 11:58 Dose: 88 mcg Documented by: [id number] Loratadine (Loratadine 10 Mg Tab) 10 mg PO DAILY DUNIA Stop: 09/14/20 08:59 Last Admin: 08/17/20 08:51 Dose: 10 mg Documented by: [id number] Admin: 08/16/20 09:41 Dose: 10 mg Documented by: [id number] Admin: 08/15/20 11:19 Dose: 10 mg Documented by: [id number] Menthol (Cough Drop (Sugar Free) Serina 24 Serina/1 Box) 1 serina BUCCAL PRN PRN PRN Reason: Sore Throat/cough Stop: 09/15/20 11:04 Last Admin: 08/17/20 09:20 Dose: 1 serina Documented by: [id number] Quetiapine Fumarate (Quetiapine Fumarate 25 Mg Tablet) 50 mg PO HS [facility] Stop: 09/14/20 21:59 Last Admin: 08/16/20 22:09 Dose: 50 mg Documented by: [id number] Admin: 08/15/20 21:07 Dose: 50 mg Documented by: [id number] Quetiapine Fumarate (Quetiapine Fumarate 25 Mg Tablet) 25 mg PO QAM [facility] Stop: 09/15/20 08:59 Last Admin: 08/17/20 08:55 Dose: 25 mg Documented by: [id number] Admin: 08/16/20 09:42 Dose: 25 mg Documented by: [id number] Simvastatin (Simvastatin 40 Mg Tab) 40 mg PO QPM DUNIA Stop: 09/14/20 20:59 Last Admin: 08/16/20 22:08 Dose: 40 mg Documented by: [id number] Admin: 08/15/20 21:07 Dose: 40 mg Documented by: [id number] Sodium Chloride (Sodium Chloride 0.65% Na Soln 45 Ml ([place])) 1 - 2 sprays NA PRN PRN PRN Reason: Nasal Dryness/Congestion Stop: 09/14/20 02:40 Last Admin: 08/16/20 11:07 Dose: 2 sprays Documented by: [id number] Tramadol HCl (Tramadol Hcl 50 Mg Tablet) 50 mg PO TID PRN PRN Reason: pain Stop: 09/14/20 09:00 Last Admin: 08/17/20 08:56 Dose: 50 mg Documented by: [id number] Admin: 08/16/20 06:35 Dose: 50 mg Documented by: [id number] Admin: 08/15/20 21:08 Dose: 50 mg Documented by: [id number] Umeclidinium [place] (Umeclidinium [place] 62.5mcg/Blister 7 Puffs/Inhaler) 1 puffs INH DAILY DUNIA; Protocol Stop: 09/15/20 08:59 Last Admin: 08/17/20 09:16 Dose: Not Given Documented by: [id number] Admin: 08/16/20 09:43 Dose: Not Given Documented by: [id number] Vitamin D (Cholecalciferol 1,000 Units 25 Mcg Tab) 2,000 units PO DAILY DUNIA Stop: 09/14/20 08:59 Last Admin: 08/17/20 08:55 Dose: 2,000 units Documented by: [id number] Admin: 08/16/20 09:42 Dose: 2,000 units Documented by: [id number] Admin: 08/15/20 11:21 Dose: 2,000 units Documented by: [id number] Discontinued Medications Gabapentin (Gabapentin 400 Mg Cap) 400 mg PO NOW STA Stop: 08/15/20 02:18 Last Admin: 08/15/20 02:31 Dose: 400 mg Documented by: [id number] Metoprolol Tartrate (Metoprolol Tartrate 25 Mg Tab) 25 mg PO BID DUNIA Stop: 09/14/20 09:14 Last Admin: 08/16/20 09:43 Dose: Not Given Documented by: [id number] Admin: 08/15/20 21:11 Dose: Not Given Documented by: [id number] Admin: 08/15/20 11:57 Dose: 25 mg Documented by: [id number] Miscellaneous (Remove Nicoderm Patch) 1 ea N/A [id number] [facility] Stop: 09/15/20 08:58 Last Admin: 08/17/20 08:51 Dose: Not Given Documented by: [id number] Admin: 08/16/20 09:29 Dose: Not Given Documented by: [id number] Nicotine (Nicotine 14 Mg/24 Hr Patch) [facility] [place] Stop: 09/14/20 08:59 Last Admin: 08/17/20 08:54 Dose: Not Given Documented by: [id number] Admin: 08/16/20 09:28 Dose: Not Given Documented by: [id number] Admin: 08/15/20 11:32 Dose: Not Given Documented by: [id number] Trazodone HCl (Trazodone Hcl 100 Mg Tab) 100 mg PO NOW [facility] Stop: 08/15/20 02:18 Last Admin: 08/15/20 02:31 Dose: 100 mg Documented by: [id number] Discharge Plan Visit Data Chief Complaint: Mental Health Evaluation Stated Complaint: BURNING SENSATION FROM HOUSE, MHID ED Provider: Antonietta Bah Discharge Problem: Psychosis Patient Disposition: Admitted As Inpatient Discharge Instructions Interventions: ED Discharge Assessment Last Done: 08/15/20 03:20
[2020-08-15] MEDS ORDERED: traZODone HCL 100 MG TAB PO STA (02:17)
[2020-08-15] MEDS ORDERED: GABAPENTIN 400 MG CAP PO STA (02:17)
[2020-08-15] MEDS ORDERED: BISMUTH SUBSALICYLATE LIQD 236 ML PO PRN (02:41)
[2020-08-15] MEDS ORDERED: NICOTINE POLACRILEX 2 MG GUM MT PRN (02:41)
[2020-08-15] MEDS ORDERED: MAGNESIUM HYDROXIDE SUSP 30 ML UDC PO PRN (02:41)
[2020-08-15] MEDS ORDERED: hydrOXYzine HCl 25 MG TAB PO PRN ×2 (02:41)
[2020-08-15] MEDS ORDERED: ALUMINUM/MAGNESIUM SUSP 30 ML UDC PO PRN (02:41)
[2020-08-15] MEDS: ACETAMINOPHEN 325 MG TAB PO PRN ×2 (06:31→15:51)
--- NOTE | 2020-08-15 08:02 | History & Physical ---
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 RBC (Auto) U Hyaline Cast (Auto) U Epithel Cells (Auto) Urine Bacteria (Auto) Urine RBC Urine WBC Ur Epithelial Cells Urine Bacteria Salicylates 2.9 Urine Opiates Screen Ur Methadone, Qual Acetaminophen 3 L Urine Barbiturates Ur Phencyclidine (PCP) U Amphetamin/Meth Scrn MDMA (Ecstasy) Screen U Benzodiazepines Scrn Ur Cocaine Metabolite U Marijuana (THC) Screen Ethyl Alcohol mg/dL < 3.0 COVID-19 Eval Order SARS-CoV-2, RNA, NAAT Current Inpatient Medications Current Inpatient Medications: Current Inpatient Medications Acetaminophen (Acetaminophen 325 Mg Tab) 650 mg PO Q4H PRN PRN Reason: Headache or Minor Fever Stop: 09/14/20 02:40 Last Admin: 08/15/20 06:31 Dose: 650 mg Documented by: Al Hydrox/Mg Hydrox/Simethicone (Aluminum/Magnesium Susp 30 Ml Udc) 30 ml PO Q4H PRN PRN Reason: GI Upset Stop: 09/14/20 02:40 Bismuth Subsalicylate (Bismuth Subsalicylate Liqd 236 Ml) 15 ml PO PRN PRN PRN Reason: Loose Stool Stop: 09/14/20 02:40 Hydroxyzine HCl (Hydroxyzine Hcl 25 Mg Tab) 50 mg PO HSZ PRN PRN Reason: Insomnia Stop: 09/14/20 02:40 Hydroxyzine HCl (Hydroxyzine Hcl 25 Mg Tab) 25 mg PO Q4H PRN PRN Reason: Anxiety Stop: 09/14/20 02:40 Magnesium Hydroxide (Magnesium Hydroxide Susp 30 Ml Udc) 30 ml PO DAILY PRN PRN Reason: Constipation Stop: 09/14/20 02:40 Miscellaneous (Remove Nicoderm Patch) 1 ea N/A DAILY@0859 [facility] Stop: 09/15/20 08:58 Nicotine (Nicotine 14 Mg/24 Hr Patch) 14 mg TD QAM DUNIA Stop: 09/14/20 08:59 Nicotine Polacrilex (Nicotine Polacrilex 2 Mg Gum) 2 piece MT PRN PRN PRN Reason: Nicotine Withdrawal Stop: 09/14/20 02:40 Sodium Chloride (Sodium Chloride 0.65% Na Soln 45 Ml ([place])) 1 - 2 sprays NA PRN PRN PRN Reason: Nasal Dryness/Congestion Stop: 09/14/20 02:40
[2020-08-15] MEDS ORDERED: IPRATROPIUM BROMIDE NASAL SPRAY 0.06% 15ML NAE PRN (09:00)
[2020-08-15] MEDS ORDERED: ALBUTEROL HFA 8 GM INHALER INH PRN (09:01)
[2020-08-15] MEDS ORDERED: DULoxetine HCL 60 MG CAP PO SCH (09:15)
[2020-08-15] MEDS ORDERED: QUEtiapine FUMARATE 25 MG TABLET PO SCH (09:15)
[2020-08-15] MEDS: LORATADINE 10 MG TAB PO SCH (11:19)
[2020-08-15] MEDS: ASPIRIN 81 MG ECTAB PO SCH (11:20)
[2020-08-15] MEDS: CHOLECALCIFEROL 1,000 UNITS 25 MCG TAB PO SCH (11:21)
[2020-08-15] MEDS: GABAPENTIN 400 MG CAP PO SCH ×3 (11:22→21:11)
[2020-08-15] MEDS: clonazePAM 0.25 MG TAB PO SCH (11:26)
[2020-08-15] MEDS: FLUTICASONE/VILANTEROL 100/25MCG 14 PUFFS/INHALER INH SCH (11:31)
[2020-08-15] MEDS: NICOTINE 14 MG/24 HR PATCH TD SCH (11:32)
[2020-08-15] MEDS: DULoxetine HCL 30 MG CAP PO SCH (11:57)
[2020-08-15] MEDS: METOPROLOL TARTRATE 25 MG TAB PO SCH ×2 (11:57→21:11)
[2020-08-15] MEDS: LEVOTHYROXINE SODIUM 88 MCG TABLET PO SCH (11:58)
[2020-08-15] MEDS: clonazePAM 0.5 MG TAB PO SCH (21:07)
[2020-08-15] MEDS: QUEtiapine FUMARATE 25 MG TABLET PO SCH (21:07)
[2020-08-15] MEDS: SIMVASTATIN 40 MG TAB PO SCH (21:07)
[2020-08-15] MEDS: traMADol HCL 50 MG TABLET PO PRN (21:08)
[2020-08-16] MEDS: traMADol HCL 50 MG TABLET PO PRN (06:35)
[2020-08-16] MEDS: LEVOTHYROXINE SODIUM 88 MCG TABLET PO SCH (06:39)
[2020-08-16] MEDS ORDERED: NON-FORMULARY MEDICATION (Coenzyme Q10 [Coq-10] 100 mg Capsule) PO SCH (09:00)
[2020-08-16] MEDS: NICOTINE 14 MG/24 HR PATCH TD SCH (09:28)
[2020-08-16] MEDS: FLUTICASONE/VILANTEROL 100/25MCG 14 PUFFS/INHALER INH SCH (09:30)
[2020-08-16] MEDS: DULoxetine HCL 30 MG CAP PO SCH (09:37)
[2020-08-16] MEDS: LORATADINE 10 MG TAB PO SCH (09:41)
[2020-08-16] MEDS: ASPIRIN 81 MG ECTAB PO SCH (09:41)
[2020-08-16] MEDS: CHOLECALCIFEROL 1,000 UNITS 25 MCG TAB PO SCH (09:42)
[2020-08-16] MEDS: QUEtiapine FUMARATE 25 MG TABLET PO SCH ×2 (09:42→22:09)
[2020-08-16] MEDS: METOPROLOL TARTRATE 25 MG TAB PO SCH (09:43)
[2020-08-16] MEDS: UMECLIDINIUM BROMIDE 62.5MCG/BLISTER 7 PUFFS/INHALER INH SCH (09:43)
[2020-08-16] MEDS: GABAPENTIN 400 MG CAP PO SCH ×3 (09:44→22:08)
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
[2020-08-16] MEDS: clonazePAM 0.25 MG TAB PO SCH (09:46)
[2020-08-16] MEDS ORDERED: QUEtiapine FUMARATE 25 MG TABLET PO PRN (10:16)
[2020-08-16] MEDS: SODIUM CHLORIDE 0.65% NA SOLN 45 ML (OCEAN) PRN (11:07)
[2020-08-16] MEDS: SIMVASTATIN 40 MG TAB PO SCH (22:08)
[2020-08-16] MEDS: clonazePAM 0.5 MG TAB PO SCH (22:09)
[2020-08-17] MEDS: DULoxetine HCL 30 MG CAP PO SCH (08:51)
[2020-08-17] MEDS: LORATADINE 10 MG TAB PO SCH (08:51)
[2020-08-17] MEDS: clonazePAM 0.25 MG TAB PO SCH (08:52)
[2020-08-17] MEDS: ASPIRIN 81 MG ECTAB PO SCH (08:52)
[2020-08-17] MEDS: GABAPENTIN 400 MG CAP PO SCH ×3 (08:52→21:34)
[2020-08-17] MEDS: NICOTINE 14 MG/24 HR PATCH TD SCH (08:54)
[2020-08-17] MEDS: QUEtiapine FUMARATE 25 MG TABLET PO SCH ×2 (08:55→21:34)
[2020-08-17] MEDS: CHOLECALCIFEROL 1,000 UNITS 25 MCG TAB PO SCH (08:55)
[2020-08-17] MEDS: traMADol HCL 50 MG TABLET PO PRN ×2 (08:56→21:39)
[2020-08-17] MEDS: LEVOTHYROXINE SODIUM 88 MCG TABLET PO SCH (08:57)
[2020-08-17] MEDS: UMECLIDINIUM BROMIDE 62.5MCG/BLISTER 7 PUFFS/INHALER INH SCH (09:16)
[2020-08-17] MEDS: FLUTICASONE/VILANTEROL 100/25MCG 14 PUFFS/INHALER INH SCH (09:17)
[2020-08-17] MEDS: COUGH DROP (SUGAR FREE) LOZ 24 LOZ/1 BOX BUCCAL PRN (09:20)
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
[2020-08-17] MEDS: ACETAMINOPHEN 325 MG TAB PO PRN (13:07)
[2020-08-17 21:20] LABS: Appearance Urine Clear (Clear); Bilirubin Urine Negative (Negative); Blood Urine Negative (Negative); Color Urine Yellow; Glucose Urine UA Negative (Negative); Ketones Urine Negative (Negative); Leukocyte Esterase Urine Negative (Negative); Nitrite Urine Negative (Negative); Protein Urine Negative (Negative); Specific Gravity Urine 1.012 (1.000-1.030); Urobilinogen Urine Negative (Negative)
[2020-08-17] MEDS: SIMVASTATIN 40 MG TAB PO SCH (21:34)
[2020-08-17] MEDS: clonazePAM 0.5 MG TAB PO SCH (21:34)
[2020-08-18] MEDS: ACETAMINOPHEN 325 MG TAB PO PRN ×2 (02:49→12:30)
[2020-08-18] MEDS: LEVOTHYROXINE SODIUM 88 MCG TABLET PO SCH (05:52)
[2020-08-18] MEDS: FLUTICASONE/VILANTEROL 100/25MCG 14 PUFFS/INHALER INH SCH (07:42)
[2020-08-18] MEDS: DULoxetine HCL 30 MG CAP PO SCH (07:42)
[2020-08-18] MEDS: ASPIRIN 81 MG ECTAB PO SCH (07:42)
[2020-08-18] MEDS: LORATADINE 10 MG TAB PO SCH (07:42)
[2020-08-18] MEDS: UMECLIDINIUM BROMIDE 62.5MCG/BLISTER 7 PUFFS/INHALER INH SCH (07:42)
[2020-08-18] MEDS: GABAPENTIN 400 MG CAP PO SCH ×3 (07:43→19:09)
[2020-08-18] MEDS: CHOLECALCIFEROL 1,000 UNITS 25 MCG TAB PO SCH (07:43)
[2020-08-18] MEDS: QUEtiapine FUMARATE 25 MG TABLET PO SCH (07:43)
[2020-08-18] MEDS: clonazePAM 0.25 MG TAB PO SCH (07:43)
[2020-08-18] MEDS: traMADol HCL 50 MG TABLET PO PRN ×2 (07:47→19:09)
[2020-08-18] MEDS: COUGH DROP (SUGAR FREE) LOZ 24 LOZ/1 BOX BUCCAL PRN (07:58)
[2020-08-18] MEDS ORDERED: QUEtiapine FUMARATE 25 MG TABLET PO PRN (10:31)
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
[2020-08-18] MEDS ORDERED: LORazepam 1 MG TAB PO PRN (13:52)
[2020-08-18] MEDS ORDERED: haloperidoL 1 MG TAB PO PRN (13:52)
[2020-08-18] MEDS ORDERED: BENZTROPINE MESYLATE 0.5 MG TAB PO PRN (13:52)
--- NOTE | 2020-08-18 14:07 | Communication Note ---
Date of Service: August 18, 2020 contacted as patient was asking to withdraw from treatment but refusing to sign form. Remains labile and tearful at times due to her delusions and is declining current prns. contacted nurses station for additional assessment of behavior--currently not actively trying to leave or trying doors, agitation is not to level staff require support of security. Made nursing aware of order for Haldol, Ativan, and Cogentin prns. Lower dose Haldol chosen given hx of a reaction to Trilafon. Will hold Cymbalta in am given manic appearance. At time of phone conversation patient was disheveled but getting own water refill from day room and not disruptive to unit. Reviewed that is escalates will need to petition for 302. Patient has been uncooperative with some aspects of voluntary treatment but up to this point was accepting meds and has not been threatening toward self or others so would like to respect autonomy. Patient told me repeatedly earlier that she wants a cigarette.
[2020-08-18] MEDS: clonazePAM 0.5 MG TAB PO SCH (21:29)
[2020-08-18] MEDS: SIMVASTATIN 40 MG TAB PO SCH (21:30)
[2020-08-18] MEDS: QUEtiapine FUMARATE 100 MG TABLET PO SCH (21:30)
[2020-08-19] MEDS: traMADol HCL 50 MG TABLET PO PRN (06:49)
[2020-08-19] MEDS: LEVOTHYROXINE SODIUM 88 MCG TABLET PO SCH (06:50)
[2020-08-19] MEDS: GABAPENTIN 400 MG CAP PO SCH ×3 (08:58→22:17)
[2020-08-19] MEDS: LORATADINE 10 MG TAB PO SCH (08:58)
[2020-08-19] MEDS: ASPIRIN 81 MG ECTAB PO SCH (08:58)
[2020-08-19] MEDS: clonazePAM 0.25 MG TAB PO SCH (08:58)
[2020-08-19] MEDS: QUEtiapine FUMARATE 25 MG TABLET PO SCH (08:59)
[2020-08-19] MEDS: CHOLECALCIFEROL 1,000 UNITS 25 MCG TAB PO SCH (08:59)
[2020-08-19] MEDS: UMECLIDINIUM BROMIDE 62.5MCG/BLISTER 7 PUFFS/INHALER INH SCH (09:08)
[2020-08-19] MEDS: FLUTICASONE/VILANTEROL 100/25MCG 14 PUFFS/INHALER INH SCH (09:08)
[2020-08-19] MEDS: SODIUM CHLORIDE 0.65% NA SOLN 45 ML (OCEAN) PRN (09:09)
[2020-08-19] MEDS: COUGH DROP (SUGAR FREE) LOZ 24 LOZ/1 BOX BUCCAL PRN (14:21)
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
[2020-08-19] MEDS: SIMVASTATIN 40 MG TAB PO SCH (22:16)
[2020-08-19] MEDS: clonazePAM 0.5 MG TAB PO SCH (22:16)
[2020-08-19] MEDS: QUEtiapine FUMARATE 100 MG TABLET PO SCH (22:17)
[2020-08-20] MEDS: LEVOTHYROXINE SODIUM 88 MCG TABLET PO SCH (06:47)
[2020-08-20] MEDS: traMADol HCL 50 MG TABLET PO PRN ×2 (06:48→20:21)
[2020-08-20] MEDS: LORATADINE 10 MG TAB PO SCH (08:34)
[2020-08-20] MEDS: ASPIRIN 81 MG ECTAB PO SCH (08:35)
[2020-08-20] MEDS: clonazePAM 0.25 MG TAB PO SCH (08:35)
[2020-08-20] MEDS: GABAPENTIN 400 MG CAP PO SCH ×3 (08:35→20:10)
[2020-08-20] MEDS: QUEtiapine FUMARATE 25 MG TABLET PO SCH (08:36)
[2020-08-20] MEDS: CHOLECALCIFEROL 1,000 UNITS 25 MCG TAB PO SCH (08:36)
[2020-08-20] MEDS: FLUTICASONE/VILANTEROL 100/25MCG 14 PUFFS/INHALER INH SCH (08:43)
[2020-08-20] MEDS: UMECLIDINIUM BROMIDE 62.5MCG/BLISTER 7 PUFFS/INHALER INH SCH (08:44)
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
[2020-08-20] MEDS: clonazePAM 0.5 MG TAB PO SCH (20:11)
[2020-08-20] MEDS: QUEtiapine FUMARATE 100 MG TABLET PO SCH (20:12)
[2020-08-20] MEDS: SIMVASTATIN 40 MG TAB PO SCH (20:16)
[2020-08-20] MEDS: ACETAMINOPHEN 325 MG TAB PO PRN (23:44)
[2020-08-21] MEDS: traZODone HCL 100 MG TAB PO PRN ×2 (00:13→21:31)
[2020-08-21] MEDS: SIMVASTATIN 40 MG TAB PO SCH ×2 (00:13→20:41)
[2020-08-21] MEDS: traMADol HCL 50 MG TABLET PO PRN ×2 (06:41→20:41)
[2020-08-21] MEDS: LEVOTHYROXINE SODIUM 88 MCG TABLET PO SCH (06:41)
[2020-08-21] MEDS: FLUTICASONE/VILANTEROL 100/25MCG 14 PUFFS/INHALER INH SCH (08:50)
[2020-08-21] MEDS: ASPIRIN 81 MG ECTAB PO SCH (08:50)
[2020-08-21] MEDS: LORATADINE 10 MG TAB PO SCH (08:50)
[2020-08-21] MEDS: QUEtiapine FUMARATE 25 MG TABLET PO SCH (08:53)
[2020-08-21] MEDS: UMECLIDINIUM BROMIDE 62.5MCG/BLISTER 7 PUFFS/INHALER INH SCH (08:53)
[2020-08-21] MEDS: clonazePAM 0.25 MG TAB PO SCH (08:53)
[2020-08-21] MEDS: GABAPENTIN 400 MG CAP PO SCH ×3 (08:53→20:41)
[2020-08-21] MEDS: CHOLECALCIFEROL 1,000 UNITS 25 MCG TAB PO SCH (08:54)
[2020-08-21] MEDS: ACETAMINOPHEN 325 MG TAB PO PRN (14:09)
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
[2020-08-21] MEDS: clonazePAM 0.5 MG TAB PO SCH (20:41)
[2020-08-21] MEDS: QUEtiapine FUMARATE 100 MG TABLET PO SCH (20:41)
[2020-08-22] MEDS: ASPIRIN 81 MG ECTAB PO SCH (07:39)
[2020-08-22] MEDS: QUEtiapine FUMARATE 100 MG TABLET PO SCH ×2 (07:39→20:21)
[2020-08-22] MEDS: GABAPENTIN 400 MG CAP PO SCH ×3 (07:39→20:21)
[2020-08-22] MEDS: CHOLECALCIFEROL 1,000 UNITS 25 MCG TAB PO SCH (07:40)
[2020-08-22] MEDS: LEVOTHYROXINE SODIUM 88 MCG TABLET PO SCH (07:40)
[2020-08-22] MEDS: LORATADINE 10 MG TAB PO SCH (07:40)
[2020-08-22] MEDS: UMECLIDINIUM BROMIDE 62.5MCG/BLISTER 7 PUFFS/INHALER INH SCH (07:41)
[2020-08-22] MEDS: FLUTICASONE/VILANTEROL 100/25MCG 14 PUFFS/INHALER INH SCH (07:41)
[2020-08-22] MEDS: clonazePAM 0.25 MG TAB PO SCH (07:43)
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
[2020-08-22] MEDS: ACETAMINOPHEN 325 MG TAB PO PRN (13:58)
[2020-08-22] MEDS: traMADol HCL 50 MG TABLET PO PRN (20:21)
[2020-08-22] MEDS: SIMVASTATIN 40 MG TAB PO SCH (20:21)
[2020-08-22] MEDS: clonazePAM 0.5 MG TAB PO SCH (20:22)
[2020-08-23] MEDS: traMADol HCL 50 MG TABLET PO PRN ×2 (06:29→17:25)
[2020-08-23] MEDS: LEVOTHYROXINE SODIUM 88 MCG TABLET PO SCH (06:30)
[2020-08-23] MEDS: clonazePAM 0.25 MG TAB PO SCH (09:51)
[2020-08-23] MEDS: LORATADINE 10 MG TAB PO SCH (09:51)
[2020-08-23] MEDS: CHOLECALCIFEROL 1,000 UNITS 25 MCG TAB PO SCH (09:52)
[2020-08-23] MEDS: QUEtiapine FUMARATE 100 MG TABLET PO SCH ×2 (09:52→21:08)
[2020-08-23] MEDS: ASPIRIN 81 MG ECTAB PO SCH (09:52)
[2020-08-23] MEDS: GABAPENTIN 400 MG CAP PO SCH ×4 (09:54→21:08)
[2020-08-23] MEDS: FLUTICASONE/VILANTEROL 100/25MCG 14 PUFFS/INHALER INH SCH (09:54)
[2020-08-23] MEDS: UMECLIDINIUM BROMIDE 62.5MCG/BLISTER 7 PUFFS/INHALER INH SCH (09:54)
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
[2020-08-23] MEDS: ACETAMINOPHEN 325 MG TAB PO PRN ×2 (13:56→23:39)
[2020-08-23] MEDS: clonazePAM 0.5 MG TAB PO SCH (21:08)
[2020-08-23] MEDS: SIMVASTATIN 40 MG TAB PO SCH (21:08)
[2020-08-24] MEDS: LEVOTHYROXINE SODIUM 88 MCG TABLET PO SCH (08:15)
[2020-08-24] MEDS: UMECLIDINIUM BROMIDE 62.5MCG/BLISTER 7 PUFFS/INHALER INH SCH (08:16)
[2020-08-24] MEDS: FLUTICASONE/VILANTEROL 100/25MCG 14 PUFFS/INHALER INH SCH (08:16)
[2020-08-24] MEDS: clonazePAM 0.25 MG TAB PO SCH (09:40)
[2020-08-24] MEDS: ASPIRIN 81 MG ECTAB PO SCH (09:40)
[2020-08-24] MEDS: QUEtiapine FUMARATE 100 MG TABLET PO SCH ×2 (09:41→21:00)
[2020-08-24] MEDS: LORATADINE 10 MG TAB PO SCH (09:41)
[2020-08-24] MEDS: GABAPENTIN 400 MG CAP PO SCH ×3 (09:41→21:00)
[2020-08-24] MEDS: CHOLECALCIFEROL 1,000 UNITS 25 MCG TAB PO SCH (09:41)
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
[2020-08-24] MEDS: SIMVASTATIN 40 MG TAB PO SCH (21:00)
[2020-08-24] MEDS: clonazePAM 0.5 MG TAB PO SCH (22:00)
[2020-08-25] MEDS: QUEtiapine FUMARATE 100 MG TABLET PO SCH ×2 (09:10→22:29)
[2020-08-25] MEDS: GABAPENTIN 400 MG CAP PO SCH ×3 (09:10→22:29)
[2020-08-25] MEDS: LEVOTHYROXINE SODIUM 88 MCG TABLET PO SCH (09:11)
[2020-08-25] MEDS: clonazePAM 0.25 MG TAB PO SCH (09:11)
[2020-08-25] MEDS: UMECLIDINIUM BROMIDE 62.5MCG/BLISTER 7 PUFFS/INHALER INH SCH (09:11)
[2020-08-25] MEDS: FLUTICASONE/VILANTEROL 100/25MCG 14 PUFFS/INHALER INH SCH (09:11)
[2020-08-25] MEDS: ASPIRIN 81 MG ECTAB PO SCH (09:11)
[2020-08-25] MEDS: LORATADINE 10 MG TAB PO SCH (09:11)
[2020-08-25] MEDS: CHOLECALCIFEROL 1,000 UNITS 25 MCG TAB PO SCH (09:12)
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
[2020-08-25] MEDS: traMADol HCL 50 MG TABLET PO PRN (18:05)
[2020-08-25] MEDS: ACETAMINOPHEN 325 MG TAB PO PRN (18:06)
[2020-08-25] MEDS: SIMVASTATIN 40 MG TAB PO SCH (21:15)
[2020-08-25] MEDS: clonazePAM 0.5 MG TAB PO SCH (22:31)
[2020-08-26] MEDS: traMADol HCL 50 MG TABLET PO PRN (06:12)
--- NOTE | 2020-08-26 07:53 | Discharge Summary ---
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 Therapist Name of Therapist: Lo Hernandez Therapist's Date of Therapist Appointment: 08/28/20 Time of Therapist Appointment: 3:00 p.m. Therapy Appointment Comment: Wednesdays from 3-5 p.m. Appraiser Personal Property Name of Appraiser Personal Property: JELLY Ott Phone Number for Appraiser Personal Property: [phone] Case Management Appointment Comment: Will follow up with you Post Discharge Appointments Primary Care Physician Name Of Family Doctor: [facility] Time of Appointment with PCP: Follow up as needed Provider Appointment Comment: [address] [place] [address], [phone] Smoking Cessation Counseling Tobacco Cessation Medication Prescribed at Discharge: Offered & Pt Refused Contact Information Discharge Discharge Address: [address] [place] [id number] Discharge Plan Discharge Items Patient Disposition: Home - Self-Care Reason For Visit: PSYCHOSIS NOS 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 You are being discharged on an involuntary outpatient commitment. Please see attached paperwork. Follow through with your scheduled aftercare appointments. If unable to keep an appointment, please call to reschedule. 2. Take your medication only as prescribed. Medication should not be changed or stopped without the approval of your doctor. In the event of worsening symptoms or concerns about side effects, contact your doctor immediately. 3. Utilize new healthy coping skills, anger management skills, and stress management skills learned during your hospitalization. Journal feelings and process them with a support person. Identify stressors or situations that may result in relapse, deterioration or inappropriate behaviors and develop a plan to deal with those issues. 4. If your coping skills are ineffective and you are in crisis, contact your outpatient providers for direction. If unable to reach your providers, please call the [facility] CRISIS LINE AT , go to the [facility] walk-in center at [address], [place], or go to the closest Emergency Room. 5. Avoid alcohol and un-prescribed drugs. 6. You have been provided with the Mental Health Advance Directives Pamphlet for your review. AFTERCARE APPOINTMENTS: * Please call your insurance company prior to your scheduled appointment to confirm your aftercare providers are covered. Take your insurance information to your appointments. WHO TO CALL AND WHEN: Medical Emergencies: For questions or emergencies related to your hospital stay, please contact the Inpatient Behavioral Health Unit at [phone]. A nozzle cement sprayer helper is on-call 21/12 for the Behavioral Health Unit for emergencies At any time you feel your situation is an emergency, you may also call 911 immediately. Pending Studies at Discharge: No Stand-Alone Forms: My PeerMe, Smoking Cessation Medications and DC Order Prescriptions: New quetiapine 100 mg Tablet 100 mg PO BID Qty: 60 RF: 0 Continued simvastatin 40 mg tablet 40 mg PO QPM Qty: 90 RF: 3 (DME) compress.stocking,knee,reg,med Misc See Rx Instructions .ROUTE .MEDSUPPLY Qty: 2 RF: 0 albuterol sulfate 90 mcg/actuation HFA aerosol inhaler 2 puff inhalation QID PRN (Reason: Shortness Of Breath) Qty: 18 RF: 11 ipratropium bromide 42 mcg (0.06 %) spray,non-aerosol See Rx Instructions .ROUTE .COMPLEX Qty: 45 RF: 11 tramadol 50 mg tablet See Rx Instructions PO TID PRN (Reason: pain) Qty: 180 RF: 0 aspirin 81 mg tablet,delayed release (DR/EC) 81 mg PO DAILY RF: 0 levothyroxine 88 mcg tablet 88 mcg PO DAILY Qty: 30 RF: 5 loratadine 10 mg capsule 10 mg PO DAILY Qty: 30 RF: 5 cholecalciferol (vitamin D3) 2,000 unit capsule 2,000 units PO DAILY RF: 0 budesonide-formoterol 160-4.5 mcg/actuation HFA aerosol inhaler 2 puffs inhalation BID Qty: 10.2 RF: 11 tiotropium bromide 2.5 mcg/actuation mist 2 puffs inhalation DAILY Qty: 4 RF: 11 gabapentin 400 mg capsule 400 mg PO TID Qty: 90 RF: 5 trazodone 100 mg Tablet 100 mg PO HS PRN (Reason: Sleep) RF: 0 coenzyme Q10 [CoQ-10] 100 mg Capsule 100 mg PO DAILY RF: 0 omega-3 fatty acids-fish oil 684-1,200 mg Capsule,Delayed Release(Dr/Ec) 1 cap PO DAILY RF: 0 Changed clonazepam 1 mg tablet 0.5 mg PO UD Qty: 0 RF: 0 Discontinued metoprolol tartrate 25 mg tablet 25 mg PO BID Qty: 180 RF: 3 melatonin 10 mg tablet 20 mg PO HS RF: 0 duloxetine [Cymbalta] 60 mg Capsule,Delayed Release(Dr/Ec) 60 mg PO DAILY RF: 0 quetiapine 50 mg tablet 50 mg PO HS RF: 0 quetiapine 25 mg tablet 25 mg PO BID RF: 0 Discharge Orders: Discharge Order (Routine); Ordered 08/26/20 Ordered By: Ghazal Aviles Admission Data Admit Date/Time: 08/15/20 02:41 Attending Provider: Ghazal Aviles Admit Provider: Ghazal Aviles Primary Care Provider: Peter Lancaster III Other Interventions: Discharge Summary Assessment (RN) Last Done: 08/26/20 10:16 PSY Interdisciplinary Discharge Planning Last Done: 08/26/20 10:16 Coding Level of Care Code 99808 D/C day mgmt > 30 min Diagnoses Unspecified psychosis F29 Anxiety F41.9 Depression F32.9 Fibromyalgia M79.7
[2020-08-26] MEDS: LEVOTHYROXINE SODIUM 88 MCG TABLET PO SCH (08:12)
[2020-08-26] MEDS: LORATADINE 10 MG TAB PO SCH (08:54)
[2020-08-26] MEDS: CHOLECALCIFEROL 1,000 UNITS 25 MCG TAB PO SCH (08:54)
[2020-08-26] MEDS: ASPIRIN 81 MG ECTAB PO SCH (08:54)
[2020-08-26] MEDS: QUEtiapine FUMARATE 100 MG TABLET PO SCH (08:54)
[2020-08-26] MEDS: GABAPENTIN 400 MG CAP PO SCH (08:55)
[2020-08-26] MEDS: UMECLIDINIUM BROMIDE 62.5MCG/BLISTER 7 PUFFS/INHALER INH SCH (08:55)
[2020-08-26] MEDS: FLUTICASONE/VILANTEROL 100/25MCG 14 PUFFS/INHALER INH SCH (08:55)
[2020-08-26] MEDS: clonazePAM 0.25 MG TAB PO SCH (08:59)
[2020-08-26] MEDS ORDERED: DESTROY THIS MEDICATION ONE ×2 (10:30→11:08)
== END 2020-08-26 11:08 | disposition home or self-care (01) | DRG 885 ==
LOC: ED 22:18 → 3S 08-15 02:41

== ENCOUNTER 2020-09-09 15:53 | Inpatient (IN) ==
--- NOTE | 2020-09-09 15:58 | Emergency Department Note ---
Impression & Plan Atrial flutter ED Provider Note NAME: DEANDRE THOMPSON AGE: 60 SEX: F : 1960 ARRIVES VIA: Ambulance INFORMANT: Patient, ED PROVIDER(S): Moo Hull MD Chief Complaint: "There are sternotomy wires coming out of my chest." HPI: Patient does present with concern that she feels as though the sternotomy wires are coming out of her chest. Patient does point to a red dot on the upper abdomen. Patient denies any recent trauma. Patient states that she had a mitral valve repair back in 2010 at [facility] in [place]. Patient denies any fevers or chills. The patient does admit to tobacco and alcohol use but denies any drug use. Patient states she has been compliant with her medications. The patient did have a recent admission to [facility] for inpatient psychiatric treatment. Patient denies any chest pains or shortness of breath. Patient denies any abdominal pain. Patient would like to see Dr. Villareal due to the concern that she has for the sternotomy wires. Patient does admit to a anxiety type symptoms. The patient denies feeling depressed or homicidal. The patient has any SI, HI. Patient denies any auditory hallucinations. ROS: See HPI for pertinent positives and negatives. A total of 10 systems were reviewed and otherwise negative. Past medical history: See below Surgical history: See below Social history: See below Physical Exam: GENERAL: Well appearing, well nourished, NAD, non-toxic. EYE EXAM: Normal conjunctiva. PERRL, no anisocoria and EOM's grossly intact w/o pain. NECK: Supple, no nuchal rigidity, no adenopathy, non-tender. No signs of meningismus. LUNGS: Clear to auscultation. Normal chest wall mechanics. Chest: No reproducible pain or obvious skin changes. HEART: Tachycardic and regular, no MRG. ABDOMEN: Abdomen soft, pinpoint area of redness at the epigastrium without any drainage or fluctuance. Non-tender, normo-active bowel sounds, no masses, no rebound or guarding. BACK: No CVA TTP. SKIN: No rashes and no bruising. UPPER EXTREMITIES: Upper extremities are grossly normal. LOWER EXTREMITIES: Grossly normal, no edema. NEURO EXAM: A&O x3, cranial nerves II-XII grossly intact, normal speech, moves all 4 extremities on command w/o issue. Differential diagnoses: Mood disorder, infection, hypoglycemia, electrolyte abnormalities, cardiac sources, intracerebral event, toxicologic, trauma, neurologic, as well as other pathologies. Course: Patient was seen and evaluated the bedside. Full history physical exam was performed. EKG: Indication: Tachycardia Atrial flutter, 2-1 block, rate of 146, normal QRS, normal axis. Imaging Studies: See below Cardiac monitoring: An order was placed for continuous cardiac monitoring. The monitor shows a rate of 140 with tachycardic and regular rhythm. MDM: Patient was seen due to concern that she has sternotomy wires coming out of her chest. There is no evidence of this. Blood work is obtained along with an EKG and chest x-ray. Tox labs were also obtained. Chest x-ray shows cardiomegaly mild emphysema but no evidence of sternotomy wire fracture. Patient's x-ray is unremarkable. EKG does show likely atrial flutter. The patient was given Lopressor. Patient was ordered at home just medications for pain. Patient has a normal white count H&H and platelet count. The patient's kidney function is unremarkable. Urinalysis negative. UDS negative. Talk screen negative. RSV flu and Covid negative. Heparin was started. I did speak with the on-call hospitalist Dr. Medina and the patient was admitted to the medicine service. Critical Care: I have personally spent 55 minutes of critical care time in direct management of this patient. This includes bedside care, interpretation of diagnostic studies, and testing, discussion with consultants, patient, and family members, and other require inpatient management activities. This 55 minutes is in excess of all separately billable procedures. Past Med/Surg History Medical History Chronic osteomyelitis Chronic pain of right wrist COPD (chronic obstructive pulmonary disease) Current smoker Fibromyalgia GERD (gastroesophageal reflux disease) History of myocardial infarction in adulthood HTN (hypertension) Hyperlipidemia Hypothyroidism (acquired) Long-term use of high-risk medication Nicotine addiction PAD (peripheral artery disease) Unspecified psychosis Surgical History H/O arthroscopic knee surgery History of cholecystectomy History of mitral valve repair History of tonsillectomy Family History Mother Breast cancer Uncle Diabetes Brother Diabetes Grandfather (Paternal) Diabetes Father Diabetes Grandmother (Maternal) Diabetes Colorectal cancer Social History Smoking Status: Current every day smoker Tobacco Type: Cigarettes packs per day: 1; Cigarettes Per Day: 1 pack; Second Hand Exposure: Yes; Do You Dip or Chew Tobacco: No; Tobacco Cessation Education Requested by Patient: No Hx Alcohol Use: Yes Alcohol type: beer and wine Hx Substance Use: No Preferred Language: Irish Communication Ability: Effective Manager Of Planning Required: No Beliefs That Will Affect Care: None marital status: Single Current Living Situation: Alone current occupational status: disabled Other Information That Helps Us Care for You: No Feels Safe at Home: Yes Safety Concerns: Feels Safe At This Time Assistive Devices: Denture - Upper and Denture - Lower Assistive Devices Comment: Not with patient Allergies Allergies Allergy/AdvReac Type Severity Reaction Status Date / Time Penicillins Allergy Unknown RASH Verified 09/09/20 18:05 perphenazine Allergy Unknown SWELLING Verified 09/09/20 18:05 ALL OVER BODY prednisone AdvReac Severe not able Verified 09/09/20 18:05 to sleep azithromycin AdvReac Hives Verified 09/09/20 18:06 Home Meds Home Medications Medication Instructions Recorded Confirmed cholecalciferol (vitamin D3) 50 2,000 units PO DAILY 03/08/19 09/09/20 mcg (2,000 unit) capsule aspirin 81 mg tablet,delayed 81 mg PO DAILY 07/03/20 09/09/20 release coenzyme Q10 [CoQ-10] 100 mg PO DAILY 08/15/20 09/09/20 omega-3 fatty acids-fish oil 1 cap PO DAILY 08/15/20 09/09/20 trazodone 100 mg PO HS PRN 08/15/20 09/09/20 ipratropium bromide 2 spray INTRANASAL BID 09/09/20 09/09/20 tramadol 50 - 100 mg PO TID PRN 09/09/20 09/09/20 Previous Rx's Medication Instructions Recorded budesonide-formoterol HFA 160 2 puffs INHALATION BID #10.2 gm 03/08/19 mcg-4.5 mcg/actuation aerosol inhaler tiotropium bromide 2.5 2 puffs INHALATION DAILY #4 gm 03/08/19 mcg/actuation mist for inhalation simvastatin 40 mg tablet 40 mg PO QPM #90 tab 03/22/20 gabapentin 400 mg capsule 400 mg PO TID #90 cap 05/02/20 loratadine 10 mg capsule 10 mg PO DAILY #30 cap 07/22/20 albuterol sulfate 90 mcg/actuation 2 puff INHALATION QID PRN #18 g 08/09/20 aerosol inhaler clonazepam 0.5 mg PO UD #0 tab 08/26/20 quetiapine 100 mg PO BID #60 tab 08/26/20 Results & Data (ED) Vital Signs Vital Signs - 24 hr 09/09/20 15:58 09/09/20 16:05 09/09/20 17:05 Temperature 36.7 C Temperature Source Oral Pulse Rate 148 H 148 H 140 H Pulse Rate from SpO2 Sensor 148 H Respiratory Rate 16 20 25 H Blood Pressure 116/88 116/88 Blood Pressure Mean 97 97 Pulse Oximetry 99 98 99 Oxygen Delivery Method Room Air Room Air Sepsis Recent Fever Within 48 Hours No Sepsis New/Unexplained Change in Mental Status N/A Sepsis Action Taken by Nursing No Action Required 09/09/20 17:28 09/09/20 17:30 09/09/20 17:40 Temperature Temperature Source Pulse Rate 148 H 150 H 149 H Pulse Rate from SpO2 Sensor 148 H 148 H Respiratory Rate 17 20 28 H Blood Pressure Blood Pressure Mean Pulse Oximetry 100 99 Oxygen Delivery Method Sepsis Recent Fever Within 48 Hours Sepsis New/Unexplained Change in Mental Status Sepsis Action Taken by Nursing 09/09/20 17:50 09/09/20 17:56 09/09/20 17:59 Temperature Temperature Source Pulse Rate 148 H 147 H 146 H Pulse Rate from SpO2 Sensor 149 H 141 H Respiratory Rate 20 19 Blood Pressure 116/88 89/72 L Blood Pressure Mean 77 Pulse Oximetry 100 91 Oxygen Delivery Method Sepsis Recent Fever Within 48 Hours Sepsis New/Unexplained Change in Mental Status Sepsis Action Taken by Nursing 09/09/20 18:00 09/09/20 18:05 09/09/20 18:06 Temperature Temperature Source Pulse Rate 145 H 146 H 145 H Pulse Rate from SpO2 Sensor 145 H Respiratory Rate 19 16 20 Blood Pressure 110/82 112/86 Blood Pressure Mean 91 94 Pulse Oximetry 99 Oxygen Delivery Method Sepsis Recent Fever Within 48 Hours Sepsis New/Unexplained Change in Mental Status Sepsis Action Taken by Nursing 09/09/20 18:10 09/09/20 18:11 09/09/20 18:15 Temperature Temperature Source Pulse Rate 143 H 144 H 144 H Pulse Rate from SpO2 Sensor 145 H Respiratory Rate 15 20 22 Blood Pressure 117/94 120/80 Blood Pressure Mean 101 93 Pulse Oximetry 96 Oxygen Delivery Method Sepsis Recent Fever Within 48 Hours Sepsis New/Unexplained Change in Mental Status Sepsis Action Taken by Nursing 09/09/20 18:20 09/09/20 18:25 09/09/20 18:33 Temperature Temperature Source Pulse Rate 145 H 143 H Pulse Rate from SpO2 Sensor 138 H 146 H Respiratory Rate 18 26 H Blood Pressure 130/85 104/86 106/80 Blood Pressure Mean 100 92 88 Pulse Oximetry 99 99 Oxygen Delivery Method Sepsis Recent Fever Within 48 Hours Sepsis New/Unexplained Change in Mental Status Sepsis Action Taken by Nursing 09/09/20 18:34 09/09/20 18:40 09/09/20 18:45 Temperature Temperature Source Pulse Rate 141 H 143 H 145 H Pulse Rate from SpO2 Sensor 145 H 141 H 148 H Respiratory Rate 22 18 20 Blood Pressure 119/80 Blood Pressure Mean 93 Pulse Oximetry 99 100 98 Oxygen Delivery Method Sepsis Recent Fever Within 48 Hours Sepsis New/Unexplained Change in Mental Status Sepsis Action Taken by Nursing 09/09/20 18:50 Temperature Temperature Source Pulse Rate 144 H Pulse Rate from SpO2 Sensor 145 H Respiratory Rate 23 Blood Pressure Blood Pressure Mean Pulse Oximetry 100 Oxygen Delivery Method Sepsis Recent Fever Within 48 Hours Sepsis New/Unexplained Change in Mental Status Sepsis Action Taken by [facility] Medications Current Medication List: was personally reviewed by me Laboratory Data Attestation: I reviewed the patient's lab results. Result diagrams: 09/09/20 16:57 09/09/20 16:57 Lab Results 09/09/20 09/09/20 09/09/20 Range/Units 16:57 16:57 16:57 WBC 10.67 (4.8-10.8) K/uL RBC 3.92 L (4.2-5.4) M/uL Hgb 12.6 (12.0-16.0) g/dL Hct 37.5 (37-47) % MCV 95.7 (80-100) fL MCH 32.1 (25-34) pg MCHC 33.6 (32-36) g/dL RDW Std Deviation 50.9 H (36.4-46.3) fL RDW Coeff of Samreen 14.5 (11.5-14.5) % Plt Count 289 (130-400) K/uL MPV 10.2 (7.4-10.4) fL Immature Gran % (Auto) 0.2 % Neut % (Auto) 66.8 % Lymph % (Auto) 22.7 % [place] % (Auto) 8.5 % Eos % (Auto) 1.3 % Baso % (Auto) 0.5 % Neut # (Auto) 7.13 H (1.4-6.5) K/uL Lymph # (Auto) 2.42 (1.2-3.4) K/uL [place] # (Auto) 0.91 H (0.11-0.59) K/uL Eos # (Auto) 0.14 (0-0.5) K/uL Baso # (Auto) 0.05 (0-0.2) K/uL Immature Gran # (Auto) 0.02 (0.00-0.02) K/uL Sodium 139 (136-145) mmol/L Potassium 3.9 (3.5-5.1) mmol/L Chloride 106 (98-107) mmol/L Carbon Dioxide 24 (21-32) mmol/L Anion Gap 9.0 (3-11) BUN 14 (7-18) mg/dl Creatinine 0.62 (0.6-1.2) mg/dl Est Cr Clr Drug Dosing 84.0 ml/min Est GFR ( Amer) 114.4 Est GFR (Non-Af Amer) 98.7 BUN/Creatinine Ratio 23.0 H (10-20) Glucose 88 (70-99) mg/dl Calcium 9.3 (8.5-10.1) mg/dl Total Bilirubin 0.5 (0.2-1) mg/dl AST 13 L (15-37) U/L ALT 24 (12-78) U/L Alkaline Phosphatase 179 H (45-117) U/L Total Protein 7.4 (6.4-8.2) gm/dl Albumin 3.3 L (3.4-5.0) gm/dl Globulin 4.1 H (2.5-4.0) gm/dl Albumin/Globulin Ratio 0.8 L (0.9-2) TSH 1.130 (0.300-4.500) uIu/ml Urine Color Urine Appearance (Clear) Urine pH (4.5-7.5) Ur Specific [place] (1.000-1.030) Urine Protein (Negative) Urine Glucose (UA) (Negative) Urine Ketones (Negative) Urine Blood (Negative) Urine Nitrite (Negative) Urine Bilirubin (Negative) Urine Urobilinogen (Negative) Ur Leukocyte Esterase (Negative) Salicylates 3.2 (2.8-20) mg/dl Urine Opiates Screen (Neg) Ur Methadone, Qual (Neg) Acetaminophen < 2 L (10-30) ug/ml Urine Barbiturates (Neg) Ur Phencyclidine (PCP) (Neg) U Amphetamin/Meth Scrn (Neg) MDMA (Ecstasy) Screen (Neg) U Benzodiazepines Scrn (Neg) Ur Cocaine Metabolite (Neg) U Marijuana (THC) Screen (Neg) Ethyl Alcohol mg/dL (0-3) mg/dl COVID-19 Eval Order SARS-CoV-2 (PCR) (Negative) Influenza Type A (PCR) (Neg) Influenza Type B (PCR) (Neg) RSV (RT-PCR) (Neg) 09/09/20 09/09/20 09/09/20 Range/Units 16:57 17:02 17:02 WBC (4.8-10.8) K/uL RBC (4.2-5.4) M/uL Hgb (12.0-16.0) g/dL Hct (37-47) % MCV (80-100) fL MCH (25-34) pg MCHC (32-36) g/dL RDW Std Deviation (36.4-46.3) fL RDW Coeff of Samreen (11.5-14.5) % Plt Count (130-400) K/uL MPV (7.4-10.4) fL Immature Gran % (Auto) % Neut % (Auto) % Lymph % (Auto) % [place] % (Auto) % Eos % (Auto) % Baso % (Auto) % Neut # (Auto) (1.4-6.5) K/uL Lymph # (Auto) (1.2-3.4) K/uL [place] # (Auto) (0.11-0.59) K/uL Eos # (Auto) (0-0.5) K/uL Baso # (Auto) (0-0.2) K/uL Immature Gran # (Auto) (0.00-0.02) K/uL Sodium (136-145) mmol/L Potassium (3.5-5.1) mmol/L Chloride (98-107) mmol/L Carbon Dioxide (21-32) mmol/L Anion Gap (3-11) BUN (7-18) mg/dl Creatinine (0.6-1.2) mg/dl Est Cr Clr Drug Dosing ml/min Est GFR ( Amer) Est GFR (Non-Af Amer) BUN/Creatinine Ratio (10-20) Glucose (70-99) mg/dl Calcium (8.5-10.1) mg/dl Total Bilirubin (0.2-1) mg/dl AST (15-37) U/L ALT (12-78) U/L Alkaline Phosphatase (45-117) U/L Total Protein (6.4-8.2) gm/dl Albumin (3.4-5.0) gm/dl Globulin (2.5-4.0) gm/dl Albumin/Globulin Ratio (0.9-2) TSH (0.300-4.500) uIu/ml Urine Color Urine Appearance (Clear) Urine pH (4.5-7.5) Ur Specific [place] (1.000-1.030) Urine Protein (Negative) Urine Glucose (UA) (Negative) Urine Ketones (Negative) Urine Blood (Negative) Urine Nitrite (Negative) Urine Bilirubin (Negative) Urine Urobilinogen (Negative) Ur Leukocyte Esterase (Negative) Salicylates (2.8-20) mg/dl Urine Opiates Screen (Neg) Ur Methadone, Qual (Neg) Acetaminophen (10-30) ug/ml Urine Barbiturates (Neg) Ur Phencyclidine (PCP) (Neg) U Amphetamin/Meth Scrn (Neg) MDMA (Ecstasy) Screen (Neg) U Benzodiazepines Scrn (Neg) Ur Cocaine Metabolite (Neg) U Marijuana (THC) Screen (Neg) Ethyl Alcohol mg/dL < 3.0 (0-3) mg/dl COVID-19 Eval Order CovFluRsv at [facility] SARS-CoV-2 (PCR) NEGATIVE (Negative) Influenza Type A (PCR) Negative (Neg) Influenza Type B (PCR) Negative (Neg) RSV (RT-PCR) Negative (Neg) 09/09/20 09/09/20 Range/Units 18:31 18:31 WBC (4.8-10.8) K/uL RBC (4.2-5.4) M/uL Hgb (12.0-16.0) g/dL Hct (37-47) % MCV (80-100) fL MCH (25-34) pg MCHC (32-36) g/dL RDW Std Deviation (36.4-46.3) fL RDW Coeff of Samreen (11.5-14.5) % Plt Count (130-400) K/uL MPV (7.4-10.4) fL Immature Gran % (Auto) % Neut % (Auto) % Lymph % (Auto) % [place] % (Auto) % Eos % (Auto) % Baso % (Auto) % Neut # (Auto) (1.4-6.5) K/uL Lymph # (Auto) (1.2-3.4) K/uL [place] # (Auto) (0.11-0.59) K/uL Eos # (Auto) (0-0.5) K/uL Baso # (Auto) (0-0.2) K/uL Immature Gran # (Auto) (0.00-0.02) K/uL Sodium (136-145) mmol/L Potassium (3.5-5.1) mmol/L Chloride (98-107) mmol/L Carbon Dioxide (21-32) mmol/L Anion Gap (3-11) BUN (7-18) mg/dl Creatinine (0.6-1.2) mg/dl Est Cr Clr Drug Dosing ml/min Est GFR ( Amer) Est GFR (Non-Af Amer) BUN/Creatinine Ratio (10-20) Glucose (70-99) mg/dl Calcium (8.5-10.1) mg/dl Total Bilirubin (0.2-1) mg/dl AST (15-37) U/L ALT (12-78) U/L Alkaline Phosphatase (45-117) U/L Total Protein (6.4-8.2) gm/dl Albumin (3.4-5.0) gm/dl Globulin (2.5-4.0) gm/dl Albumin/Globulin Ratio (0.9-2) TSH (0.300-4.500) uIu/ml Urine Color Yellow Urine Appearance Clear (Clear) Urine pH 6.5 (4.5-7.5) Ur Specific [place] 1.010 (1.000-1.030) Urine Protein Negative (Negative) Urine Glucose (UA) Negative (Negative) Urine Ketones Negative (Negative) Urine Blood Negative (Negative) Urine Nitrite Negative (Negative) Urine Bilirubin Negative (Negative) Urine Urobilinogen Negative (Negative) Ur Leukocyte Esterase Negative (Negative) Salicylates (2.8-20) mg/dl Urine Opiates Screen Neg (Neg) Ur Methadone, Qual Neg (Neg) Acetaminophen (10-30) ug/ml Urine Barbiturates Neg (Neg) Ur Phencyclidine (PCP) Neg (Neg) U Amphetamin/Meth Scrn Neg (Neg) MDMA (Ecstasy) Screen Neg (Neg) U Benzodiazepines Scrn Neg (Neg) Ur Cocaine Metabolite Neg (Neg) U Marijuana (THC) Screen Neg (Neg) Ethyl Alcohol mg/dL (0-3) mg/dl COVID-19 Eval Order SARS-CoV-2 (PCR) (Negative) Influenza Type A (PCR) (Neg) Influenza Type B (PCR) (Neg) RSV (RT-PCR) (Neg) Administered Medications Gabapentin (Gabapentin 400 Mg Cap) 400 mg PO TID [facility] Stop: 10/09/20 20:59 Last Admin: 09/09/20 21:53 Dose: 400 mg Documented by: [id number] Diltiazem HCl 125 mg/ Dextrose 125 mls @ 5 mls/hr IV .Q24H DUNIA; Protocol Stop: 10/09/20 20:59 Last Admin: 09/09/20 21:50 Dose: 5 mg/hr, 5 mls/hr Documented by: [id number] Cosigned by: [id number] Heparin Sodium/Dextrose (Heparin Sodium/Dextrose) 25,000 units in 500 mls @ 20 mls/hr IV .Q24H [facility]; Protocol Stop: 10/09/20 19:44 Last Admin: 09/09/20 21:49 Dose: 20 mls/hr Documented by: [id number] Cosigned by: [id number] Ipratropium Varna (Ipratropium Varna Nasal [place] 0.06% 15ml) 2 sprays ERICH BID DUNIA Stop: 10/09/20 20:59 Last Admin: 09/09/20 21:53 Dose: Not Given Documented by: [id number] Quetiapine Fumarate (Quetiapine Fumarate 100 Mg Tablet) 100 mg PO BID [facility]UN[facility] Stop: 10/09/20 20:59 Last Admin: 09/09/20 21:53 Dose: 100 mg Documented by: [id number] Simvastatin (Simvastatin 40 Mg Tab) 40 mg PO QPM [facility]UN[facility] Stop: 10/09/20 20:59 Last Admin: 09/09/20 21:53 Dose: 40 mg Documented by: [id number] Discontinued Medications Acetaminophen (Acetaminophen 500 Mg Tab) 1,000 mg PO NOW STA Stop: 09/09/20 16:37 Last Admin: 09/09/20 16:46 Dose: 1,000 mg Documented by: [id number] Gabapentin (Gabapentin 400 Mg Cap) 400 mg PO NOW STA Stop: 09/09/20 18:12 Last Admin: 09/09/20 18:25 Dose: 400 mg Documented by: [id number] Heparin Sodium/Dextrose (Heparin Iv Low Dose *No* Bolus) 1 ea IV ONE ONE; Protocol Stop: 09/09/20 18:25 Last Admin: 09/09/20 20:34 Dose: Not Given Documented by: [id number] Heparin Sodium/Dextrose (Heparin Iv Standard *No* Bolus) 1 ea IV ONE ONE; Protocol Stop: 09/09/20 19:43 Last Admin: 09/09/20 22:21 Dose: Not Given Documented by: [id number] Heparin Sodium/Dextrose (Heparin Sodium/Dextrose) 25,000 units in 500 mls @ 13 mls/hr IV .Q24H DUNIA; Protocol Stop: 10/09/20 18:29 Last Admin: 09/09/20 20:34 Dose: Not Given Documented by: [id number] Sodium Chloride (Nss) 500 mls @ 999 mls/hr IV .Q31M ONE Stop: 09/09/20 18:54 Last Infusion: 09/09/20 20:22 Dose: 999 mls/hr Documented by: [id number] Admin: 09/09/20 19:23 Dose: 999 mls/hr Documented by: [id number] Heparin Sodium/Dextrose (Heparin Sodium/Dextrose) 25,000 units in 500 mls @ 13 mls/hr IV .Q24H [facility]UNIA; Protocol Stop: 10/09/20 19:44 Last Admin: 09/09/20 20:11 Dose: 650 units/hr, 13 mls/hr Documented by: [id number] Cosigned by: [id number] Sodium Chloride (Nss 1000ml) 1,000 mls @ 999 mls/hr IV .Q1H1M ONE Stop: 09/09/20 22:25 Last Admin: 09/09/20 21:49 Dose: 999 mls/hr Documented by: [id number] Lorazepam (Lorazepam 1 Mg Tab) 1 mg PO NOW STA Stop: 09/09/20 16:37 Last Admin: 09/09/20 16:46 Dose: 1 mg Documented by: [id number] Metoprolol Tartrate (Metoprolol Tartrate 1 Mg/Ml Vial) 5 mg IV Q5M PRN PRN Reason: Tachycardia Stop: 10/09/20 17:31 Last Admin: 09/09/20 18:12 Dose: 5 mg Documented by: [id number] Admin: 09/09/20 18:05 Dose: 5 mg Documented by: [id number] Admin: 09/09/20 17:56 Dose: 5 mg Documented by: [id number] Metoprolol Tartrate (Metoprolol Tartrate 25 Mg Tab) 25 mg PO Q6H [facility] Stop: 10/09/20 20:31 Last Admin: 09/09/20 22:21 Dose: Not Given Documented by: [id number] Quetiapine Fumarate (Quetiapine Fumarate 100 Mg Tablet) 100 mg PO NOW STA Stop: 09/09/20 18:25 Last Admin: 09/09/20 19:30 Dose: 100 mg Documented by: [id number] Imaging Data Radiologist's Impression: Chest X-Ray 09/09/20 16:36 SINGLE VIEW CHEST CLINICAL HISTORY: Sternotomy wire malfunction. The patient reports sternotomy wires are "coming out". FINDINGS: An AP, portable, semierect chest radiograph is compared to study dated 07/29/2020. Correlation is made with chest CT dated 04/12/2020. The patient is status post midline sternotomy and cardiac valve surgery. Epicardial pacing leads are noted. The cardiomediastinal silhouette is unremarkable. Mild emphysematous change and chronic interstitial thickening is similar to previous. There is no airspace consolidation or large pleural effusion. There is bibasilar scarring/atelectasis. No pneumothorax is seen. The skeletal structures are o steopenic. The bony thorax is grossly intact. IMPRESSION: 1. Cardiomegaly and mild emphysema with no acute cardiopulmonary abnormality. 2. There is no radiographic evidence of sternotomy wire fracture. ACT 112: Negative or not required by law. Electronically signed by: Biju Cardona M.D. 09/09/2020 4:53 PM Discharge Plan Visit Data Chief Complaint: Illness Stated Complaint: wire coming out of chest ED Provider: Moo Hull Discharge Problem: Atrial flutter Patient Disposition: Admitted As Inpatient Discharge Instructions Interventions: ED Discharge Assessment Last Done: 09/09/20 20:19 Discharge Problem: Atrial flutter Qualifiers: Atrial flutter type: unspecified Qualified Code(s): I48.92 - Unspecified atrial flutter
[2020-09-09] MEDS ORDERED: LORazepam 1 MG TAB PO STA (16:36)
[2020-09-09] MEDS ORDERED: ACETAMINOPHEN 500 MG TAB PO STA (16:36)
--- NOTE | 2020-09-09 16:54 | XRay Report ---
SINGLE VIEW CHEST CLINICAL HISTORY: Sternotomy wire malfunction. The patient reports sternotomy wires are "coming out" . FINDINGS: An AP, portable, semierect chest radiograph is compared to study dated 07/29/2020. Correlatio n is made with chest CT dated 04/12/2020. The patient is status post midline sternotomy and cardiac v alve surgery. Epicardial pacing leads are noted. The cardiomediastinal silhouette is unremarkable. Mi ld emphysematous change and chronic interstitial thickening is similar to previous. There is no airsp charla consolidation or large pleural effusion. There is bibasilar scarring/atelectasis. No pneumothorax is seen. The skeletal structures are osteopenic. The bony thorax is grossly intact. IMPRESSION: 1. Cardiomegaly and mild emphysema with no acute cardiopulmonary abnormality. 2. There is no radiographic evidence of sternotomy wire fracture. ACT 112: Negative or not required by law. Electronically signed by: Biju Cardona M.D. 09/09/2020 4:53 PM
[2020-09-09 17:09] LABS: Basophils # (auto) 0.05 K/uL (0-0.2); Basophils % (auto) 0.5 %; Eosinophils # (auto) 0.14 K/uL (0-0.5); Eosinophils % (auto) 1.3 %; Hematocrit (blood only) 37.5 % (37-47); Hemoglobin 12.6 g/dL (12.0-16.0); Immature Granulocytes # (auto) 0.02 K/uL (0.00-0.02); Immature Granulocytes % (auto) 0.2 %; Lymphocytes # (auto) 2.42 K/uL (1.2-3.4); Lymphocytes % (auto) 22.7 %; Mean Corpuscular Hemoglobin 32.1 pg (25-34); Mean Corpuscular Hgb Conc 33.6 g/dL (32-36); Mean Corpuscular Volume 95.7 fL (80-100); Mean Platelet Volume 10.2 fL (7.4-10.4); Monocytes # (auto) 0.91 K/uL (0.11-0.59); Monocytes % (auto) 8.5 %; Neutrophils # (auto) 7.13 K/uL (1.4-6.5); Neutrophils % (auto) 66.8 %; Platelet Count 289 K/uL (130-400); RDW Coefficient of Variation 14.5 % (11.5-14.5); RDW Standard Deviation 50.9 fL (36.4-46.3); Red Blood Count 3.92 M/uL (4.2-5.4); White Blood Count 10.67 K/uL (4.8-10.8)
[2020-09-09 17:31] LABS: Albumin Level 3.3 gm/dl (3.4-5.0); Calcium 9.3 mg/dl (8.5-10.1); Est GFR (African American) 114.4; Est GFR (Non-African American) 98.7; Potassium 3.9 mmol/L (3.5-5.1)
[2020-09-09 17:32] LABS: Acetaminophen < 2 ug/ml (10-30); Salicylate 3.2 mg/dl (2.8-20)
[2020-09-09 17:42] LABS: Albumin Globulin Ratio 0.8 (0.9-2); Bilirubin,Total 0.5 mg/dl (0.2-1); Globulin 4.1 gm/dl (2.5-4.0); Thyroid Stimulating Hormone 1.13 uIu/ml (0.300-4.500); Total Protein 7.4 gm/dl (6.4-8.2)
[2020-09-09] MEDS: METOPROLOL TARTRATE 1 MG/ML VIAL IV PRN ×3 (17:56→18:12)
[2020-09-09 18:08] LABS: Influenza A virus by PCR Negative (Neg); Influenza B virus by PCR Negative (Neg); RSV by PCR Negative (Neg); SARS CoV2 RNA(COVID-19) InHosp NEGATIVE (Negative)
[2020-09-09] MEDS ORDERED: GABAPENTIN 400 MG CAP PO STA (18:11)
[2020-09-09] MEDS ORDERED: QUEtiapine FUMARATE 100 MG TABLET PO STA (18:24)
[2020-09-09] MEDS ORDERED: Heparin IV Adult Wt-Based Low-Dose *NO* Bolus Protocol IV ONE (18:24)
[2020-09-09] MEDS ORDERED: SODIUM CHLORIDE 0.9% 500 ML IV ONE (18:24)
[2020-09-09] MEDS ORDERED: HEPARIN SODIUM/DEXTROSE 25,000 UNITS/500 ML BAG IV SCH ×3 (18:30→21:30)
[2020-09-09 19:03] LABS: Appearance Urine Clear (Clear); Bilirubin Urine Negative (Negative); Blood Urine Negative (Negative); Color Urine Yellow; Glucose Urine UA Negative (Negative); Ketones Urine Negative (Negative); Leukocyte Esterase Urine Negative (Negative); Nitrite Urine Negative (Negative); Protein Urine Negative (Negative); Urobilinogen Urine Negative (Negative); pH Urine 6.5 (4.5-7.5)
--- NOTE | 2020-09-09 19:12 | History & Physical Report ---
Date of Service September 09, 2020 Assessment & Plan (1) Atrial flutter with rapid ventricular response: Metoprolol 5mg IV x3 given in ER. Start metoprolol 25mg PO q6h with hold parameters. If still tachycardia and BP amenable will start on diltiazem IV drip Heparin standard IV without bolus for anticoagulation NPO after midnight TTE Consult cardiology (2) 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: Sternal wire migration through skin. Apparently this has previously occurred. Suspect somewhat exacerbated by patient psychiatric issues and picking at this area. 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 Sternal XR with lateral to assess whether this has been fractured and is potentially removable. Cover with non stick dressing and gauze. 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 Continue ASA and simvastatin. No prior BB use. (4) Anxiety: Recent admission in [address] [place] [address] for psychosis. Continue quetiapine 100mg PO BID and trazodone 100mg PO HS (5) Fibromyalgia: Continue gabapentin 400mg PO TID (6) COPD, moderate: No COPD exacerbation suspected. Continue routine inhalers with tiotropium and Symbicort or hospital formulary equivalent. 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 She reports pain over the site of the wire protrusion below her sternum but no other chest pain, palpitations. She mainly wishes to discuss her concerns with Dr Villareal rather than myself. She tells me she has been having problems with the sternotomy wires for years. Dr Mendez in the past has clipped the end of it off. But at the same time it has been worse the last few days due to a dog running into her a few days ago. She was recently admitted to [address] [place] [address] for psychosis, major depressive disorder, MICHELL and PTSD. She reports no recent hallucinations. She denies any fevers or chills. In the ER she was noted to be in atrial flutter with rapid ventricular rate. No known history of this. The patient feels her heart rate is just fast because she is anxious and wishes to talk to her professional organizer. Allergies Allergy/AdvReac Type Severity Reaction Status Date / Time Penicillins Allergy Unknown RASH Verified 09/09/20 18:05 perphenazine Allergy Unknown SWELLING Verified 09/09/20 18:05 ALL OVER BODY prednisone AdvReac Severe not able Verified 09/09/20 18:05 to sleep azithromycin AdvReac Hives Verified 09/09/20 18:06 Home Medications Medication Instructions Recorded Confirmed Type budesonide-formoterol HFA 160 2 puffs INHALATION BID #10.2 gm 03/08/19 09/09/20 Rx mcg-4.5 mcg/actuation aerosol inhaler cholecalciferol (vitamin D3) 50 2,000 units PO DAILY 03/08/19 09/09/20 History mcg (2,000 unit) capsule tiotropium bromide 2.5 2 puffs INHALATION DAILY #4 gm 03/08/19 09/09/20 Rx mcg/actuation mist for inhalation simvastatin 40 mg tablet 40 mg PO QPM #90 tab 03/22/20 09/09/20 Rx gabapentin 400 mg capsule 400 mg PO TID #90 cap 05/02/20 09/09/20 Rx aspirin 81 mg tablet,delayed 81 mg PO DAILY 07/03/20 09/09/20 History release loratadine 10 mg capsule 10 mg PO DAILY #30 cap 07/22/20 09/09/20 Rx albuterol sulfate 90 mcg/actuation 2 puff INHALATION QID PRN #18 g 08/09/20 09/09/20 Rx aerosol inhaler coenzyme Q10 [CoQ-10] 100 mg PO DAILY 08/15/20 09/09/20 History omega-3 fatty acids-fish oil 1 cap PO DAILY 08/15/20 09/09/20 History trazodone 100 mg PO HS PRN 08/15/20 09/09/20 History clonazepam 0.5 mg PO UD #0 tab 08/26/20 09/09/20 Rx quetiapine 100 mg PO BID #60 tab 08/26/20 09/09/20 Rx ipratropium bromide 2 spray INTRANASAL BID 09/09/20 09/09/20 History tramadol 50 - 100 mg PO TID PRN 09/09/20 09/09/20 History Past Med/Surg History Medical History Chronic osteomyelitis Chronic pain of right wrist COPD (chronic obstructive pulmonary disease) Current smoker Fibromyalgia GERD (gastroesophageal reflux disease) History of myocardial infarction in adulthood HTN (hypertension) Hyperlipidemia Hypothyroidism (acquired) Long-term use of high-risk medication Nicotine addiction PAD (peripheral artery disease) Unspecified psychosis Surgical History H/O arthroscopic knee surgery History of cholecystectomy History of mitral valve repair History of tonsillectomy Family History Mother Breast cancer Uncle Diabetes Brother Diabetes Grandfather (Paternal) Diabetes Father Diabetes Grandmother (Maternal) Diabetes Colorectal cancer Social History Smoking Status: Current every day smoker Tobacco Type: Cigarettes packs per day: 1; Cigarettes Per Day: 1 pack; Second Hand Exposure: Yes; Do You Dip or Chew Tobacco: No; Tobacco Cessation Education Requested by Patient: No Hx Alcohol Use: Yes Alcohol type: beer and wine Hx Substance Use: No Preferred Language: Armenian Communication Ability: Effective Rn Admissions Required: No Beliefs That Will Affect Care: None marital status: Single Current Living Situation: Alone current occupational status: disabled Other Information That Helps Us Care for You: No Feels Safe at Home: Yes Safety Concerns: Feels Safe At This Time Assistive Devices: None Assistive Devices Comment: Not with patient Review of Systems Review of Systems: All systems reviewed & are unremarkable except as noted in HPI & below Physical Exam Constitutional: WD/WN, vitals as above Eyes: + anicteric sclerae; normal pupil size Respiratory: normal respiratory effort, lungs clear to auscultation Cardiovascular: Rate/Rhythm: regular rhythm and + tachycardic Heart Sounds: no murmur Vessels: no JVD Extremities: normal capillary refill; no calf tenderness and no pedal edema Gastrointestinal (Abdomen): normal bowel sounds, soft, nontender, no hepatosplenomegaly Musculoskeletal: no cyanosis or clubbing, extremities motor strength 5/5 Skin: 0.5cm erythematous wound approximately 2cm below sternum. Lamar wire able to protrude 0.5cm from this wound. Neurologic: moves all extremities and awake; not confused Psychiatric: Orientation: alert and oriented x 3 Results & Data Results & Data ([facility]) Vital Signs (Past 12 Hours) Vital Signs Temp Pulse Resp BP Pulse Ox 09/09/20 18:11 144 H 20 09/09/20 18:10 143 H 15 117/94 09/09/20 18:06 145 H 20 99 09/09/20 18:05 146 H 16 112/86 09/09/20 18:00 145 H 19 110/82 09/09/20 17:59 146 H 19 89/72 L 91 09/09/20 17:56 147 H 116/88 09/09/20 17:50 148 H 20 100 09/09/20 17:40 149 H 28 H 99 09/09/20 17:30 150 H 20 09/09/20 17:28 148 H 17 100 09/09/20 17:05 140 H 25 H 99 09/09/20 16:05 36.7 C 148 H 20 116/88 98 09/09/20 15:58 148 H 16 116/88 99 Diagnostic Findings SINGLE VIEW CHEST IMPRESSION: 1. Cardiomegaly and mild emphysema with no acute cardiopulmonary abnormality. 2. There is no radiographic evidence of sternotomy wire fracture. Medications Administered ER Medications Given: Lorazepam 1mg PO Acetaminophen 1g PO Metoprolol 5mg IV x3 Gabapentin 400mg PO Seroquel 100mg PO NSS 500ml bolus ECG Indication: tachycardia Rate (beats per minute): 148 Rhythm: atrial flutter Findings: no acute ischemic change Comparison ECG Date: from (Jun 20, 2020) Change: the following changes noted (atrial flutter is new) Code Status & VTE Plan Code Status Full VTE Prophylaxis Plan VTE Prophylaxis will be ordered: Yes PG Care Time/CCT Total # of Minutes Spent Total Time Spent with Patient: Total time spent is greater than 50% in coordination of care (as documented) at patient's floor/unit and/or counseling patient: Coding Level of Care Code 71534 Initial Inpt Care Lvl 3 Diagnoses Atrial flutter with rapid ventricular response I48.92 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 T81.9XXA Encounter type: initial encounter 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
[2020-09-09 19:35] LABS: Amphetamines+Metham, Urine Neg (Neg); Barbiturates, Urine Neg (Neg); Benzodiazepine, Urine Neg (Neg); Cocaine, Urine Neg (Neg); MDMA (Ecstacy), Urine Neg (Neg); Methadone, Urine Neg (Neg); Opiate, Urine Neg (Neg); Phencyclidine, Urine Neg (Neg)
[2020-09-09 19:39] LABS: Partial Thromboplastin Time 26.2 Seconds (21.0-31.0)
[2020-09-09] MEDS ORDERED: Heparin IV Adult Wt-Based Standard *NO* Bolus Protocol IV ONE (19:42)
[2020-09-09] MEDS ORDERED: METOPROLOL TARTRATE 25 MG TAB PO SCH (20:32)
[2020-09-09] MEDS ORDERED: STAT IV Infusion **Titration per Protocol STA ×2 (20:32→20:46)
[2020-09-09] MEDS ORDERED: traMADol HCL 50 MG TABLET PO PRN (20:32)
[2020-09-09] MEDS ORDERED: ACETAMINOPHEN 325 MG TAB PO PRN (20:32)
[2020-09-09] MEDS ORDERED: SIMVASTATIN 40 MG TAB PO SCH (21:00)
[2020-09-09] MEDS ORDERED: dilTIAZem HCL 125 MG in DEXTROSE 5% 100 ML IV SCH (21:00)
[2020-09-09] MEDS ORDERED: traZODone HCL 50 MG TAB PO PRN (21:04)
[2020-09-09] MEDS ORDERED: SODIUM CHLORIDE 0.9% 1000ML 1,000 ML IV ONE (21:25)
[2020-09-09] MEDS: IPRATROPIUM BROMIDE NASAL SPRAY 0.06% 15ML NAE SCH (21:53)
[2020-09-09] MEDS: QUEtiapine FUMARATE 100 MG TABLET PO SCH (21:53)
[2020-09-09] MEDS: GABAPENTIN 400 MG CAP PO SCH (21:53)
[2020-09-09] MEDS: ALBUMIN 25% 12.5 GM/50 ML VIAL IV SCH (23:17)
[2020-09-10] MEDS: ALBUMIN 25% 12.5 GM/50 ML VIAL IV SCH (00:04)
[2020-09-10] MEDS ORDERED: SODIUM CHLORIDE 0.9% 1000ML 1,000 ML IV ONE (00:09)
[2020-09-10] MEDS ORDERED: SODIUM CHLORIDE 0.9% 1000ML 1,000 ML IV SCH (03:15)
[2020-09-10 04:31] LABS: Partial Thromboplastin Ratio 1.7
[2020-09-10 04:58] LABS: BUN Creatinine Ratio 50.1 (10-20); Blood Urea Nitrogen 10 mg/dl (7-18); C Reactive Protein 2.99 mg/dl (0-0.29); Calcium 5.6 mg/dl (8.5-10.1); Carbon Dioxide 18 mmol/L (21-32); Chloride 124 mmol/L (98-107); Creatinine Clr Calc Pharmacy 239.5 ml/min; Est GFR (African American) > 150.0; Est GFR (Non-African American) 143.2; Glucose 74 mg/dl (70-99); Potassium 2.9 mmol/L (3.5-5.1); Sodium 148 mmol/L (136-145); Troponin I 0.029 ng/ml (0-0.045)
[2020-09-10 04:59] LABS: Partial Thromboplastin Time 45.2 Seconds (21.0-31.0)
[2020-09-10 05:00] LABS: Basophils # (auto) 0.03 K/uL (0-0.2); Basophils % (auto) 0.5 %; Eosinophils # (auto) 0.13 K/uL (0-0.5); Eosinophils % (auto) 2.1 %; Hematocrit (blood only) 24.8 % (37-47); Hemoglobin 8.3 g/dL (12.0-16.0); Immature Granulocytes # (auto) 0.02 K/uL (0.00-0.02); Immature Granulocytes % (auto) 0.3 %; Lymphocytes # (auto) 1.83 K/uL (1.2-3.4); Mean Corpuscular Hemoglobin 32.4 pg (25-34); Mean Corpuscular Hgb Conc 33.5 g/dL (32-36); Mean Corpuscular Volume 96.9 fL (80-100); Mean Platelet Volume 9.7 fL (7.4-10.4); Monocytes # (auto) 0.43 K/uL (0.11-0.59); Monocytes % (auto) 6.8 %; Neutrophils # (auto) 3.88 K/uL (1.4-6.5); Neutrophils % (auto) 61.3 %; Platelet Count 189 K/uL (130-400); RDW Coefficient of Variation 14.4 % (11.5-14.5); RDW Standard Deviation 51.7 fL (36.4-46.3); Red Blood Count 2.56 M/uL (4.2-5.4); White Blood Count 6.32 K/uL (4.8-10.8)
[2020-09-10] MEDS ORDERED: CALCIUM GLUCONATE 10% 2,000 MG in SODIUM CHLORIDE 0.9% 50 ML IV ONE (05:05)
[2020-09-10] MEDS ORDERED: LORazepam 0.5 MG/1 ML VIAL IV STA (05:18)
[2020-09-10] MEDS ORDERED: HEPARIN SODIUM/DEXTROSE 25,000 UNITS/500 ML BAG IV SCH (05:30)
--- NOTE | 2020-09-10 08:08 | XRay Report ---
XR chest 2V PA/lateral HISTORY: 60 years-old Female evaluate for broken sternal wires acute mid chest pain with prior media n sternotomy COMPARISON: Chest radiograph 09/09/2020 TECHNIQUE: PA and lateral views of the chest FINDINGS: Cardiac mediastinal and hilar silhouettes are unchanged. Median sternotomy with cardiac valvular prosthesis. The sternotomy wires appear intact. Retained lead s are noted within the anterior mediastinum. No pneumothorax, pleural effusion or overt pulmonary augustine ma. Emphysema with chronic interstitial coarsening. Degenerative changes of the shoulders and spine. Cholecystectomy. IMPRESSION: 1. Emphysema without acute process. 2. Prior median sternotomy with mitral valvular prosthesis. Sternotomy wires appear intact. ACT 112: Negative or not required by law. The above report was generated using voice recognition software. It may contain grammatical, syntax o r spelling errors. Electronically signed by: Singh Soler M.D. 09/10/2020 8:07 AM
[2020-09-10] MEDS: QUEtiapine FUMARATE 100 MG TABLET PO SCH (08:15)
[2020-09-10] MEDS: GABAPENTIN 400 MG CAP PO SCH ×2 (08:15→14:53)
[2020-09-10] MEDS: IPRATROPIUM BROMIDE NASAL SPRAY 0.06% 15ML NAE SCH (08:17)
[2020-09-10] MEDS ORDERED: SODIUM CHLORIDE 0.65% NA SOLN 45 ML (OCEAN) ONE (08:20)
[2020-09-10] MEDS ORDERED: OMEGA-3 (PURIFIED FISH OIL) 1 GM CAP PO SCH (09:00)
[2020-09-10] MEDS ORDERED: NON-FORMULARY MEDICATION (Coenzyme Q10 [Coq-10] 100 mg Capsule) PO SCH (09:00)
[2020-09-10] MEDS ORDERED: LORATADINE 10 MG TAB PO SCH (09:00)
[2020-09-10] MEDS ORDERED: CHOLECALCIFEROL 1,000 UNITS 25 MCG TAB PO SCH (09:00)
[2020-09-10] MEDS ORDERED: FLUTICASONE/VILANTEROL 100/25MCG 14 PUFFS/INHALER INH SCH (09:00)
[2020-09-10] MEDS ORDERED: ASPIRIN 81 MG ECTAB PO SCH (09:00)
[2020-09-10] MEDS ORDERED: UMECLIDINIUM BROMIDE 62.5MCG/BLISTER 7 PUFFS/INHALER INH SCH (09:00)
[2020-09-10 09:20] LABS: Calcium 8.8 mg/dl (8.5-10.1)
[2020-09-10 12:14] LABS: Partial Thromboplastin Ratio 1.7
[2020-09-10 12:51] LABS: Blood Urea Nitrogen 13 mg/dl (7-18); Chloride 113 mmol/L (98-107); Creatinine Clr Calc Pharmacy 106.5 ml/min; Est GFR (African American) 123.6; Est GFR (Non-African American) 106.6; Glucose 105 mg/dl (70-99); Magnesium 1.8 mg/dl (1.8-2.4); Potassium 3.7 mmol/L (3.5-5.1); Sodium 142 mmol/L (136-145)
--- NOTE | 2020-09-10 13:14 | Cardiology Consultation ---
Date of Consultation September 10, 2020 Assessment & Plan (1) 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: 2. Atrial flutter with RVR 3. CAD-- known occluded RCA--chronic exertional shortness of breath, last stress 01/2019 negative at 74%. 4.. History of severe mitral regurgitation status post mitral valve repair--well-functioning last echo 04/2017 5. Chronic sternal osteomyelitis--on suppressive antibiotics 6. Recent psychiatric hospitalization for psychosis. Palpable wire unchanged from prior visits. No evidence of skin breakdown. No signs of infection. No need for additional surgical evaluation at this time. New onset atrial flutter on arrival. Patient asymptomatic. Converted to sinus overnight. Elevated thromboembolic risk. Endorses multiple recent falls, hemoglobin low. Overall feel not a great candidate for anticoagulation long- term. Ok to discontinue heparin. Would restart metoprolo 25mg bid that was on previously. From a cardiac standpoint OK with discharge today. History of Present Illness Attending Physician: Mendez Sinclair DO History of Present Illness Ms. Bran is a 60-year-old woman with a history of prior ischemic cardiomyop athy, coronary artery disease with known completely occluded RCA, hyperlipidemia, COPD, prior severe mitral regurgitation status post mitral valve repair/annuloplasty with post-op course complicated by sternal wound infections and chronic osteomyelitis here due to concern that sternal wire protruding for skin. Patient was previously followed by Dr. Mendez for her cardiovascular care. Mitral regurgitation was initially diagnosed back in July of 2010. Preoperative cardiac catheterization was notable for completely occluded right coronary artery. She underwent mitral valve repair with a 26 mm Stephenie- Mccoy physeal ring by Dr. Perales at [facility] in 2011. Later in the fall of 2011 she developed an open sternal wound draining pus with eventual exposed hardware for which she was treated IV antibiotics and has been on suppressive antibiotics with bactrim per Dr. Roxanne FALCON. More recently had an acute prolonged psychiatric hospitalization for psychotic symptoms. Discharged on 08/26/2020. Yesterday states she was feeling in her usual state of health but the wire that has previously been a problem felt more prominent and she felt strongly that the wire need to be removed. She contacted our office who recommended that she present to the ED. In the ED was noted to be in atrial flutter with RVR to the 150s. Patient denies any palpitations, shortness of breath or chest pain. Started on heparin and diltiazem infusions overnight. Converted to sinus rhythm approximately 11:50 PM. Allergies Allergy/AdvReac Type Severity Reaction Status Date / Time Penicillins Allergy Unknown RASH Verified 09/17/20 15:07 perphenazine Allergy Unknown SWELLING Verified 09/17/20 15:07 ALL OVER BODY prednisone AdvReac Severe not able Verified 09/17/20 15:07 to sleep azithromycin AdvReac Hives Verified 09/17/20 15:07 Home Medications Medication Instructions Recorded Confirmed Type budesonide-formoterol HFA 160 2 puffs INHALATION BID #10.2 gm 03/08/19 09/17/20 Rx mcg-4.5 mcg/actuation aerosol inhaler cholecalciferol (vitamin D3) 50 2,000 units PO DAILY 03/08/19 09/17/20 History mcg (2,000 unit) capsule simvastatin 40 mg tablet 40 mg PO QPM #90 tab 03/22/20 09/17/20 Rx gabapentin 400 mg capsule 400 mg PO TID #90 cap 05/02/20 09/17/20 Rx aspirin 81 mg tablet,delayed 81 mg PO DAILY 07/03/20 09/17/20 History release loratadine 10 mg capsule 10 mg PO DAILY #30 cap 07/22/20 09/17/20 Rx albuterol sulfate 90 mcg/actuation 2 puff INHALATION QID PRN #18 g 08/09/20 09/17/20 Rx aerosol inhaler coenzyme Q10 [CoQ-10] 100 mg PO DAILY 08/15/20 09/17/20 History omega-3 fatty acids-fish oil 1 cap PO DAILY 08/15/20 09/17/20 History trazodone 100 mg PO HS PRN 08/15/20 09/17/20 History clonazepam 0.5 mg PO UD #0 tab 08/26/20 09/17/20 Rx quetiapine 100 mg PO BID #60 tab 08/26/20 09/17/20 Rx ipratropium bromide 2 spray INTRANASAL BID 09/09/20 09/17/20 History tramadol 50 - 100 mg PO TID PRN 09/09/20 09/17/20 History metoprolol tartrate 12.5 mg PO BID #30 tab 09/10/20 09/17/20 Rx tiotropium bromide 2.5 2 puff INHALATION DAILY gm 09/17/20 History mcg/actuation mist for inhalation Patient History Medical History Chronic osteomyelitis Chronic pain of right wrist COPD (chronic obstructive pulmonary disease) Current smoker Fibromyalgia GERD (gastroesophageal reflux disease) History of myocardial infarction in adulthood HTN (hypertension) Hyperlipidemia Hypothyroidism (acquired) Long-term use of high-risk medication Nicotine addiction PAD (peripheral artery disease) Unspecified psychosis Surgical History H/O arthroscopic knee surgery History of cholecystectomy History of mitral valve repair History of tonsillectomy Family History Mother Breast cancer Uncle Diabetes Brother Diabetes Grandfather (Paternal) Diabetes Father Diabetes Grandmother (Maternal) Diabetes Colorectal cancer Social History Smoking Status: Current every day smoker Tobacco Type: Cigarettes packs per day: 1; Cigarettes Per Day: 1 pack; Second Hand Exposure: Yes; Hx Alcohol Use: Yes Alcohol type: beer and wine Hx Substance Use: No Preferred Language: Setswana Communication Ability: Effective [employer] Farm[employer] Required: No Beliefs That Will Affect Care: None marital status: Single Current Living Situation: Alone current occupational status: disabled Feels Safe at Home: Yes Assistive Devices: None Review of Systems Review of Systems: All systems reviewed & are unremarkable except as noted in HPI & below Physical Exam Physical Exam: General: Comfortable, no acute distress HEENT: Sclerae anicteric, mucous membranes moist Lungs: Clear to auscultation bilaterally Cardiac: Regular rate and rhythm, no murmurs. Small pinpoint area of redness at the inferior border of sternum. No palpable wire. No significant erythema or induration. Abdomen: Soft, nontender Extremities: Warm, well perfused Skin: No rashes or lesions. Neuro: Nonfocal Psych: Alert orient x3, normal affect and mood Results & Data ([facility]) Vital Signs (Past 12 Hours) Vital Signs Temp Pulse Pulse Pulse Resp BP Pulse Ox 09/10/20 12:09 98.4 F 74 20 119/68 96 09/10/20 08:00 98.1 F 103 H 70 18 114/66 98 09/10/20 03:11 97.3 F L 87 16 101/63 94 09/10/20 02:33 93/59 L 09/10/20 02:18 103/64 09/10/20 02:04 77/50 L 09/10/20 01:48 73 88/54 L 09/10/20 01:33 75 89/56 L 09/10/20 01:18 98/64 L PG Care Time/CCT Total # of Minutes Spent Total Time Spent with Patient: Total time spent is greater than 50% in coordination of care (as documented) at patient's floor/unit and/or counseling patient: Coding Level of Care Code 19452 Inpt Consult Level 4 Diagnoses 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 T81.9XXA Encounter type: initial encounter (1) 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 Encounter type: initial encounter Qualified Code(s): T81.9XXA - Unspecified complication of procedure, initial encounter
--- NOTE | 2020-09-10 14:45 | Discharge Summary ---
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 She reports pain over the site of the wire protrusion below her sternum but no other chest pain, palpitations. She mainly wishes to discuss her concerns with Dr Villareal rather than myself. She tells me she has been having problems with the sternotomy wires for years. Dr Mendez in the past has clipped the end of it off. But at the same time it has been worse the last few days due to a dog running into her a few days ago. She was recently admitted to [address] [place] [address] for psychosis, major depressive disorder, MICHELL and PTSD. She reports no recent hallucinations. She denies any fevers or chills. In the ER she was noted to be in atrial flutter with rapid ventricular rate. No known history of this. The patient feels her heart rate is just fast because she is anxious and wishes to talk to her insurance account manager. Admission Exam Per Admitting Provider Constitutional: WD/WN, vitals as above Eyes: + anicteric sclerae; normal pupil size Respiratory: normal respiratory effort, lungs clear to auscultation Cardiovascular: Rate/Rhythm: regular rhythm and + tachycardic Heart Sounds: no murmur Vessels: no JVD Extremities: normal capillary refill; no calf tenderness and no pedal edema Gastrointestinal (Abdomen): normal bowel sounds, soft, nontender, no hepatosplenomegaly Musculoskeletal: no cyanosis or clubbing, extremities motor strength 5/5 Skin: 0.5cm erythematous wound approximately 2cm below sternum. [place] wire able to protrude 0.5cm from this wound. Neurologic: moves all extremities and awake; not confused Psychiatric: Orientation: alert and oriented x 3 Principal Diagnosis Atrial flutter with rapid ventricular response Discharge Exam GENERAL : No acute distress but anxious EYES: No icterus, gaze conjugate. PERRL NOSE: No evidence of epistaxis MOUTH: No lesions or candidiasis NECK: Supple LUNGS: CTA B/L, no wheezes, rales or rhonchi HEART: Irregular, irregular, now rate controlled ABDOMEN: Soft, NT, ND, BS Present EXTREMITIES: No LE edema, pedal pulses intact NEURO: A&OX3 Discharge Data Allergies Allergy/AdvReac Type Severity Reaction Status Date / Time Penicillins Allergy Unknown RASH Verified 09/17/20 15:07 perphenazine Allergy Unknown SWELLING Verified 09/17/20 15:07 ALL OVER BODY prednisone AdvReac Severe not able Verified 09/17/20 15:07 to sleep azithromycin AdvReac Hives Verified 09/17/20 15:07 Consultations 09/09/20 18:45 ED Decision to Admit Stat 09/09/20 21:29 Consult Cardiology Routine Hospital Course (1) Atrial flutter with rapid ventricular response: (1) Atrial flutter with rapid ventricular response: Metoprolol 5mg IV x3 given in ER. Start metoprolol 25mg PO q6h with hold parameters. Heparin standard IV without bolus for anticoagulation Cardiology consulted Usually GERMAN was scheduled at this time we will hold and follow outpatient (2) 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: Sternal wire migration through skin. Apparently this has previously occurred. Suspect somewhat exacerbated by patient psychiatric issues and picking at this area. 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 Sternal XR with lateral to assess whether this has been fractured and is potentially removable. Cover with non stick dressing and gauze. Patient not concerned about this at the time of discharge. 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 Continue ASA and simvastatin. No prior BB use. (4) Anxiety: Recent admission in [address] [place] [address] for psychosis. Continue quetiapine 100mg PO BID and trazodone 100mg PO HS No significant issues during this admission (5) Fibromyalgia: Continue gabapentin 400mg PO TID (6) COPD, moderate: No COPD exacerbation suspected. Continue routine inhalers with tiotropium and Symbicort or hospital formulary equivalent. Patient will follow up with Dr. 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: (4) Anxiety: (5) Fibromyalgia: (6) COPD, moderate: Total Time Total Time Spent Total Time Spent (In Minutes): 35 Total Time Includes: Examination of the Patient, Discharge Planning, Medication Reconciliation and Communication With Other Providers Discharge Plan Discharge Items Patient Disposition: Home - Self-Care Reason For Visit: A FLUTTER WITH RVR Discharge Diagnosis: A flutter with rapid ventricular response Activity: Resume your previous activity Lifting: Gradually increase as tolerated Bathing: No limitations Exercise/Sports: Gradually increase as tolerated Driving/Machine Use: When cleared from a cardiac perspective by Dr. Villareal Weightbearing: Full weightbearing Non-emergency contact: Primary Care Provider and Curriculum And Assessment Coordinator Call non-emergency contact if: you have any medication questions and your symptoms worsen Follow-up/Referrals: Peter Lancaster III, MD [Primary Care Provider] - Diet: Heart Healthy [facility] Attending Provider Instructions: You were admitted with atrial flutter and was seen by cardiology. On the day of discharge your potassium was low, your sodium was high, your hemoglobin was low. We were able to run repeat tests on the potassium and sodium but did not get a repeat hemoglobin as you did not want to get "stuck again". Inasmuch as you did not have bleeding the lower hemoglobin level may be in an accurate reading and your hemoglobin is higher than we thought. Should you develop further weakness, lightheadedness or have active bleeding, please go to the emergency department or your family doctor for repeat lab tests. You should keep all appointments with Dr. Villareal and his cardiology partners for further follow-up with your atrial flutter. If you have any further questions, call Dr. Villareal or his office regarding her cardiac issues. Pending Studies at Discharge: No Stand-Alone Forms: My [facility] [employer], Smoking Cessation Medications and DC Order Prescriptions: New metoprolol tartrate 25 mg tablet 12.5 mg PO BID Qty: 30 RF: 0 Continued simvastatin 40 mg tablet 40 mg PO QPM Qty: 90 RF: 3 albuterol sulfate 90 mcg/actuation HFA aerosol inhaler 2 puff inhalation QID PRN (Reason: Shortness Of Breath) Qty: 18 RF: 11 aspirin 81 mg tablet,delayed release (DR/EC) 81 mg PO DAILY RF: 0 loratadine 10 mg capsule 10 mg PO DAILY Qty: 30 RF: 5 cholecalciferol (vitamin D3) 2,000 unit capsule 2,000 units PO DAILY RF: 0 budesonide-formoterol 160-4.5 mcg/actuation HFA aerosol inhaler 2 puffs inhalation BID Qty: 10.2 RF: 11 gabapentin 400 mg capsule 400 mg PO TID Qty: 90 RF: 5 trazodone 100 mg Tablet 100 mg PO HS PRN (Reason: Sleep) RF: 0 coenzyme Q10 [CoQ-10] 100 mg Capsule 100 mg PO DAILY RF: 0 omega-3 fatty acids-fish oil 684-1,200 mg Capsule,Delayed Release(Dr/Ec) 1 cap PO DAILY RF: 0 quetiapine 100 mg Tablet 100 mg PO BID Qty: 60 RF: 0 clonazepam 1 mg tablet 0.5 mg PO UD Qty: 0 RF: 0 ipratropium bromide 42 mcg (0.06 %) spray,non-aerosol 2 spray intranasal BID RF: 0 tramadol 50 mg tablet 50 - 100 mg PO TID PRN (Reason: pain) RF: 0 No Action tiotropium bromide 2.5 mcg/actuation mist 2 puff inhalation DAILY RF: 0 Discharge Orders: Discharge Order (Routine); Ordered 09/10/20 Ordered By: Biju Lora Admission Data Admit Date/Time: 09/09/20 18:59 Attending Provider: Mendez Sinclair Admit Provider: Louie Medina Primary Care Provider: Peter Lancaster III Other Providers: Kit Villareal Other Interventions: Discharge Summary Assessment (RN) Last Done: 09/10/20 14:26 Supervising Physician Co-Signing Physician Notes Patient seen and examined on the day of discharge. I agree with the discharge summary by Biju CABRERA. I have reviewed the chart including labs, imaging and plans for discharge. patient wanting to leave, very anxious, she feels better and no longer in aflutter with RVR - Atrial flutter with RVR: resolved - Chest pain: resolved Hypernatremia, hypokalemia, anemia: due to lab error from morning draw, labs must have been drawn above NSS that was running repeat labs were completely normal Coding Level of Care Code D/C Day Management >30 mins Diagnoses Atrial flutter with rapid ventricular response I48.92 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 T81.9XXA Encounter type: initial encounter Atherosclerotic heart disease of [place] coronary artery with other forms of angina pectoris I25.118 Anxiety F41.9 Fibromyalgia M79.7 COPD, moderate J44.9 Time Spent (min) 35
--- NOTE | 2020-09-10 23:51 | XCELERA ---
[id number]
--- NOTE | 2020-09-11 06:05 | Electrocardiogram Report ---
Test Reason : Blood Pressure : / mmHG Vent. Rate : 148 BPM Atrial Rate : 296 BPM P-R Int : 000 ms QRS Dur : 082 ms QT Int : 156 ms P-R-T Axes : -80 -11 148 degrees QTc Int : 244 ms Atrial flutter with 2:1 A-V conduction Inferior infarct (cited on or before 31-OCT-2010) Abnormal ECG When compared with ECG of 20-JUN-2020 05:08, Atrial flutter has replaced Sinus rhythm Vent. rate has increased BY 54 BPM Nonspecific T wave abnormality now evident in Inferior leads Confirmed by Yaniv Hazel ([id number]) on 09/11/2020 6:05:09 AM Referred By: REFERRED SELF Confirmed By:Yaniv Hazel
--- NOTE | 2020-09-11 06:08 | Electrocardiogram Report ---
Test Reason : Blood Pressure : / mmHG Vent. Rate : 146 BPM Atrial Rate : 288 BPM P-R Int : 000 ms QRS Dur : 086 ms QT Int : 158 ms P-R-T Axes : -38 -14 147 degrees QTc Int : 246 ms Atrial flutter with premature ventricular or aberrantly conducted complexes Inferior infarct (cited on or before 31-OCT-2010) Possible Anterior infarct , age undetermined Abnormal ECG When compared with ECG of 09-SEP-2020 17:12, Borderline criteria for Anterior infarct are now Present Confirmed by Yaniv Hazel ([id number]) on 09/11/2020 6:08:19 AM Referred By: REFERRED SELF Confirmed By:Yaniv Hazel
--- NOTE | 2020-09-11 06:22 | Electrocardiogram Report ---
Test Reason : Blood Pressure : / mmHG Vent. Rate : 086 BPM Atrial Rate : 086 BPM P-R Int : 138 ms QRS Dur : 088 ms QT Int : 384 ms P-R-T Axes : 077 019 085 degrees QTc Int : 459 ms Poor data quality, interpretation may be adversely affected Normal sinus rhythm Premature atrial complexes Inferior infarct (cited on or before 31-OCT-2010) Abnormal ECG When compared with ECG of 09-SEP-2020 19:42, Sinus rhythm has replaced Atrial flutter Confirmed by Yaniv Hazel ([id number]) on 09/11/2020 6:22:18 AM Referred By: REFERRED SELF Confirmed By:Yaniv Hazel
== END 2020-09-10 15:08 | disposition home or self-care (01) | DRG 310 ==
LOC: ED 15:53 → 2S 18:59 → SUATTDRO 18:59 → 2S 20:19

== ENCOUNTER 2020-09-28 13:54 | Inpatient (IN) ==
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
[2020-09-28 14:49] LABS: Basophils # (auto) 0.02 K/uL (0-0.2); Basophils % (auto) 0.3 %; Eosinophils # (auto) 0.03 K/uL (0-0.5); Eosinophils % (auto) 0.4 %; Hematocrit (blood only) 37.3 % (37-47); Hemoglobin 12.5 g/dL (12.0-16.0); Immature Granulocytes # (auto) 0.01 K/uL (0.00-0.02); Immature Granulocytes % (auto) 0.1 %; Lymphocytes # (auto) 1.24 K/uL (1.2-3.4); Lymphocytes % (auto) 17.9 %; Mean Corpuscular Hemoglobin 32.1 pg (25-34); Mean Corpuscular Hgb Conc 33.5 g/dL (32-36); Mean Corpuscular Volume 95.9 fL (80-100); Mean Platelet Volume 10.5 fL (7.4-10.4); Monocytes # (auto) 0.49 K/uL (0.11-0.59); Monocytes % (auto) 7.1 %; Neutrophils # (auto) 5.12 K/uL (1.4-6.5); Neutrophils % (auto) 74.2 %; Platelet Count 236 K/uL (130-400); RDW Coefficient of Variation 14.9 % (11.5-14.5); RDW Standard Deviation 52.1 fL (36.4-46.3); Red Blood Count 3.89 M/uL (4.2-5.4); White Blood Count 6.91 K/uL (4.8-10.8)
[2020-09-28 15:09] LABS: Albumin Level 3.6 gm/dl (3.4-5.0); BUN Creatinine Ratio 23.2 (10-20); Calcium 9.4 mg/dl (8.5-10.1); Creatinine Clr Calc Pharmacy 81.2 ml/min; Est GFR (African American) 116.3; Est GFR (Non-African American) 100.3; Potassium 3.7 mmol/L (3.5-5.1)
[2020-09-28 15:12] LABS: Salicylate 3.2 mg/dl (2.8-20)
[2020-09-28 15:19] LABS: Bilirubin,Total 0.4 mg/dl (0.2-1); Globulin 3.5 gm/dl (2.5-4.0); Thyroid Stimulating Hormone 1.52 uIu/ml (0.300-4.500); Total Protein 7.1 gm/dl (6.4-8.2)
[2020-09-28] MEDS ORDERED: traZODone HCL 100 MG TAB PO PRN (15:40)
[2020-09-28] MEDS ORDERED: traMADol HCL 50 MG TABLET PO PRN (15:40)
[2020-09-28] MEDS ORDERED: ALBUTEROL HFA 8 GM INHALER INH PRN ×2 (15:40→17:53)
[2020-09-28] MEDS ORDERED: clonazePAM 1 MG TAB PO SCH (15:45)
[2020-09-28 15:47] LABS: Influenza A virus by PCR Negative (Neg); Influenza B virus by PCR Negative (Neg); RSV by PCR Negative (Neg); SARS CoV2 RNA(COVID-19) InHosp NEGATIVE (Negative)
[2020-09-28] MEDS ORDERED: CHOLECALCIFEROL 1,000 UNITS 25 MCG TAB PO SCH (16:00)
[2020-09-28] MEDS ORDERED: ASPIRIN 81 MG ECTAB PO ONE (16:00)
[2020-09-28] MEDS ORDERED: SULFAMETHOXAZOLE/TRIMETHOPRIM DS 800/160MG TAB PO SCH (16:00)
[2020-09-28] MEDS ORDERED: FLUTICASONE/VILANTEROL 100/25MCG 14 PUFFS/INHALER INH SCH (16:00)
[2020-09-28] MEDS ORDERED: GABAPENTIN 400 MG CAP PO ONE (16:00)
[2020-09-28] MEDS ORDERED: clonazePAM 0.5 MG TAB PO ONE (16:15)
[2020-09-28] MEDS ORDERED: LEVOTHYROXINE SODIUM 88 MCG TABLET PO SCH (16:15)
[2020-09-28 16:40] LABS: Appearance Urine Clear (Clear); Bacteria Urine Automated Negative (Negative); Bilirubin Urine Negative (Negative); Blood Urine Negative (Negative); Color Urine Yellow; Epithelial Cell Urine Auto >30 /lpf (0-5); Glucose Urine UA Negative (Negative); Ketones Urine Trace (Negative); Leukocyte Esterase Urine 2+ (Negative); Nitrite Urine Negative (Negative); Protein Urine Negative (Negative); RBC Urine Automated 0-4 /hpf (0-4); Urobilinogen Urine Negative (Negative)
[2020-09-28 16:56] LABS: Amphetamines+Metham, Urine Neg (Neg); Barbiturates, Urine Neg (Neg); Benzodiazepine, Urine Neg (Neg); Cocaine, Urine Neg (Neg); MDMA (Ecstacy), Urine Neg (Neg); Methadone, Urine Neg (Neg); Opiate, Urine Neg (Neg); Phencyclidine, Urine Neg (Neg)
[2020-09-28] MEDS ORDERED: SODIUM CHLORIDE 0.65% NA SOLN 45 ML (OCEAN) PRN (17:23)
[2020-09-28] MEDS ORDERED: NICOTINE POLACRILEX 2 MG GUM MT PRN (17:23)
[2020-09-28] MEDS ORDERED: MAGNESIUM HYDROXIDE SUSP 30 ML UDC PO PRN (17:23)
[2020-09-28] MEDS ORDERED: ALUMINUM/MAGNESIUM SUSP 30 ML UDC PO PRN (17:23)
[2020-09-28] MEDS ORDERED: hydrOXYzine HCl 25 MG TAB PO PRN (17:23)
[2020-09-28] MEDS ORDERED: BISMUTH SUBSALICYLATE LIQD 236 ML PO PRN (17:23)
[2020-09-28] MEDS ORDERED: NICOTINE 21 MG/24 HR TDSY TD SCH (17:30)
[2020-09-28] MEDS: traMADol HCL 50 MG TABLET PO PRN (20:28)
[2020-09-28] MEDS ORDERED: SIMVASTATIN 40 MG TAB PO SCH (21:00)
[2020-09-28] MEDS ORDERED: IPRATROPIUM BROMIDE NASAL SPRAY 0.06% 15ML SCH (21:00)
[2020-09-28] MEDS ORDERED: GABAPENTIN 400 MG CAP PO SCH (21:00)
[2020-09-28] MEDS ORDERED: BUDESONIDE/FORMOTEROL FUMARATE 160/4.5 60 PUFFS/INHALER INH SCH (21:00)
[2020-09-28] MEDS ORDERED: QUEtiapine FUMARATE 100 MG TABLET PO SCH (21:00)
[2020-09-28] MEDS ORDERED: IPRATROPIUM BROMIDE HFA INHALER INH SCH (21:00)
[2020-09-28] MEDS ORDERED: METOPROLOL TARTRATE 25 MG TAB PO SCH (21:00)
[2020-09-28] MEDS: METOPROLOL TARTRATE 25 MG TAB PO SCH (21:28)
[2020-09-28] MEDS: ACETAMINOPHEN 325 MG TAB PO PRN (21:29)
[2020-09-28] MEDS: SULFAMETHOXAZOLE/TRIMETHOPRIM DS 800/160MG TAB PO SCH (21:30)
[2020-09-28] MEDS: GABAPENTIN 400 MG CAP PO SCH (21:30)
[2020-09-28] MEDS: QUEtiapine FUMARATE 100 MG TABLET PO SCH (21:30)
[2020-09-28] MEDS: SIMVASTATIN 40 MG TAB PO SCH (21:30)
[2020-09-28] MEDS: clonazePAM 0.5 MG TAB PO SCH (21:30)
[2020-09-28] MEDS: IPRATROPIUM BROMIDE NASAL SPRAY 0.06% 15ML NAE SCH (22:28)
[2020-09-29] MEDS: LEVOTHYROXINE SODIUM 88 MCG TABLET PO SCH (07:10)
[2020-09-29] MEDS: CHOLECALCIFEROL 1,000 UNITS 25 MCG TAB PO SCH (07:11)
[2020-09-29] MEDS: OMEGA-3 (PURIFIED FISH OIL) 1 GM CAP PO SCH (07:11)
[2020-09-29] MEDS: ASPIRIN 81 MG ECTAB PO SCH (07:11)
[2020-09-29] MEDS: LORATADINE 10 MG TAB PO SCH (07:12)
[2020-09-29] MEDS: METOPROLOL TARTRATE 25 MG TAB PO SCH ×2 (07:12→20:45)
[2020-09-29] MEDS: GABAPENTIN 400 MG CAP PO SCH ×3 (07:12→20:45)
[2020-09-29] MEDS: SULFAMETHOXAZOLE/TRIMETHOPRIM DS 800/160MG TAB PO SCH ×2 (07:14→20:47)
[2020-09-29] MEDS: QUEtiapine FUMARATE 100 MG TABLET PO SCH ×2 (07:15→20:46)
[2020-09-29] MEDS: clonazePAM 0.5 MG TAB PO SCH ×2 (07:19→20:44)
[2020-09-29] MEDS: FLUTICASONE/VILANTEROL 200/25MCG 14 PUFFS/INHALER INH SCH (07:31)
[2020-09-29] MEDS: IPRATROPIUM BROMIDE NASAL SPRAY 0.06% 15ML NAE SCH ×2 (07:31→20:53)
[2020-09-29] MEDS: UMECLIDINIUM BROMIDE 62.5MCG/BLISTER 7 PUFFS/INHALER INH SCH (07:32)
[2020-09-29] MEDS ORDERED: OMEGA-3 (PURIFIED FISH OIL) 1 GM CAP PO SCH (09:00)
[2020-09-29] MEDS ORDERED: NON-FORMULARY MEDICATION (Cholecalciferol (Vitamin D3) 2,000 unit capsule) PO SCH (09:00)
[2020-09-29] MEDS ORDERED: [UNRECOGNIZED DRUG - OTHER] PO SCH (09:00)
[2020-09-29] MEDS ORDERED: UMECLIDINIUM BROMIDE 62.5MCG/BLISTER 7 PUFFS/INHALER INH SCH (09:00)
[2020-09-29] MEDS ORDERED: LORATADINE 10 MG TAB PO SCH (09:00)
[2020-09-29] MEDS ORDERED: ASPIRIN 81 MG ECTAB PO SCH (09:00)
[2020-09-29] MEDS ORDERED: LORATADINE 10 MG PO SCH (09:00)
[2020-09-29] MEDS ORDERED: NON-FORMULARY MEDICATION (Coenzyme Q10 [Coq-10] 100 mg Capsule) PO SCH (09:00)
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
[2020-09-29] MEDS: traMADol HCL 50 MG TABLET PO PRN ×2 (14:01→23:49)
[2020-09-29] MEDS: hydrOXYzine HCl 25 MG TAB PO PRN (18:20)
[2020-09-29] MEDS: SIMVASTATIN 40 MG TAB PO SCH (20:46)
--- NOTE | 2020-09-29 21:51 | Electrocardiogram Report ---
Test Reason : Blood Pressure : / mmHG Vent. Rate : 081 BPM Atrial Rate : 081 BPM P-R Int : 136 ms QRS Dur : 086 ms QT Int : 408 ms P-R-T Axes : 066 -03 013 degrees QTc Int : 473 ms Poor data quality, interpretation may be adversely affected Normal sinus rhythm Inferior infarct (cited on or before 31-OCT-2010) Cannot rule out Anterior infarct , age undetermined Abnormal ECG When compared with ECG of 10-SEP-2020 05:01, Premature atrial complexes are no longer Present T wave inversion now evident in Inferior leads Nonspecific T wave abnormality no longer evident in Lateral leads Confirmed by Clayton Goldstein ([id number]) on 09/29/2020 9:51:04 PM Referred By: REFERRED SELF Confirmed By:Clayton Goldstein
[2020-09-29] MEDS: traZODone HCL 50 MG TAB PO PRN (23:51)
[2020-09-30] MEDS: traMADol HCL 50 MG TABLET PO PRN ×3 (05:02→22:49)
[2020-09-30] MEDS: LEVOTHYROXINE SODIUM 88 MCG TABLET PO SCH (07:21)
[2020-09-30] MEDS: ASPIRIN 81 MG ECTAB PO SCH (07:21)
[2020-09-30] MEDS: CHOLECALCIFEROL 1,000 UNITS 25 MCG TAB PO SCH (07:21)
[2020-09-30] MEDS: OMEGA-3 (PURIFIED FISH OIL) 1 GM CAP PO SCH (07:22)
[2020-09-30] MEDS: GABAPENTIN 400 MG CAP PO SCH ×3 (07:22→21:16)
[2020-09-30] MEDS: clonazePAM 0.5 MG TAB PO SCH ×2 (07:22→21:16)
[2020-09-30] MEDS: LORATADINE 10 MG TAB PO SCH (07:23)
[2020-09-30] MEDS: METOPROLOL TARTRATE 25 MG TAB PO SCH ×2 (07:23→21:15)
[2020-09-30] MEDS: QUEtiapine FUMARATE 100 MG TABLET PO SCH (07:25)
[2020-09-30] MEDS: UMECLIDINIUM BROMIDE 62.5MCG/BLISTER 7 PUFFS/INHALER INH SCH (07:25)
[2020-09-30] MEDS: SULFAMETHOXAZOLE/TRIMETHOPRIM DS 800/160MG TAB PO SCH ×2 (07:25→21:16)
[2020-09-30] MEDS: FLUTICASONE/VILANTEROL 200/25MCG 14 PUFFS/INHALER INH SCH (07:26)
[2020-09-30] MEDS: IPRATROPIUM BROMIDE NASAL SPRAY 0.06% 15ML NAE SCH ×2 (07:38→21:26)
--- NOTE | 2020-09-30 12:16 | Psychiatric Progress Note ---
Date of Service September 30, 2020 Impression / Recommendations Impression 60 yo female with history of delusional and disorganized behavior, prior dx of schizophrenia, previous admission here for psychosis, failing outpatient level of care, admit from 304 outpatient commitment. She is currently more organized and cooperative than last presentation but tends to escalate quickly so will continue on MNPR and elopement precautions. Home doses of medication initially continued as compliance was unclear. 09/30/20--remains delusional (1) Schizophrenia: 09/30/20--titrate Seroquel 100 mg am and 200 mg po qhs for ongoing psychosis. Completed paperwork for conversion hearing (outpatient to inpatient). 09/29/20--The patient was admitted to the [facility] on q15 min checks (behavioral with suicide precautions) for safety. The patient will participate in group, recreational, and milieu therapies and will be offered additional individual and family sessions as clinically appropriate. It is not clear how consistently she was taking medication so will continue on current doses. Will increase Seroquel as indicated though should also consider COOK. Patient has metabolic labs within the last 3 months. Inventory Assets Strengths: has been accepting of outpatient services, loves her dog Needs: housing Risk Factors Assessment : Yes Do You Have Access To A Gun?: No Mental Health Diagnoses: Yes Substance Use Disorders: No Previous Attempt: Yes Previous Psychiatric Hospitalization: Yes Smoker: Yes Protective Factors Assessment : No Responsible for Young Children: No (but yes for dog) Employed: No Interval History Identifying Information 60 yo female, previous recent admit to for psychosis, was on 304 outpatient commitment. Chief Complaint "I still know there is electric in my body, look at this static". Review of Systems Sleep Information Total Hours of Sleep: 5.5 Meal Information Percent Meal Consumed - Breakfast: 25 Percent Meal Consumed - Lunch: 75 Percent Meal Consumed - Dinner: 100 Subjective Subjective Patient was seen & assessed and interval progress reviewed with treatment team. She continues to express somatic delusions and is too disorganized for groups as will make comments about race that are inappropriate and go off topic in conversation. Difficulty maintaining personal space. Still upset about her apartment. Has to keep window shades lowered in her room as thinks the "smoke will get in". Physical Exam Psychiatric Orientation: alert Apperance: appropriately groomed Eye Contact: + fair eye contact Motor Behavior: no abnormal motor movements Speech: normal rate/rhythm/volume of speech Affect: + anxious affect Mood: + anxious mood Thought Process: + circumstantial thought process and + concrete thought process Thought Content: + paranoid and + delusions Suicidal Thoughts: denies suicidal thoughts Homicidal Thoughts: denies homicidal thoughts Hallucinations: no auditory hallucinations and no visual hallucinations Cognition: remote memory grossly intact, attention grossly intact and language grossly intact Estimated Intelligence: consistent with education level Insight: + poor insight Judgement: + poor judgement Vital Signs (Past 24 Hours) Last Vital Signs Temp 36.6 C 09/30/20 06:00 Pulse 78 09/30/20 06:25 Resp 16 09/30/20 06:00 BP 127/73 09/30/20 06:25 Pulse Ox 97 09/28/20 17:43 Results & Data ([facility]) Current Inpatient Medications Current Inpatient Medications: Current Inpatient Medications Acetaminophen (Acetaminophen 325 Mg Tab) 650 mg PO Q4H PRN PRN Reason: Headache or Minor Fever Stop: 10/28/20 17:22 Last Admin: 09/28/20 21:29 Dose: 650 mg Documented by: Al Hydrox/Mg Hydrox/Simethicone (Aluminum/Magnesium Susp 30 Ml Udc) 30 ml PO Q4H PRN PRN Reason: GI Upset Stop: 10/28/20 17:22 Albuterol (Albuterol Hfa 8 Gm Inhaler) 2 puffs INH Q4 PRN PRN Reason: wheezing Stop: 10/28/20 17:52 Aspirin (Aspirin 81 Mg Ectab) 81 mg PO QAM [facility] Stop: 10/29/20 08:59 Last Admin: 09/30/20 07:21 Dose: 81 mg Documented by: Bismuth Subsalicylate (Bismuth Subsalicylate Liqd 236 Ml) 15 ml PO PRN PRN PRN Reason: Loose Stool Stop: 10/28/20 17:22 Clonazepam (Clonazepam 0.5 Mg Tab) 0.5 mg PO BID [facility] Stop: 10/28/20 20:59 Last Admin: 09/30/20 07:22 Dose: 0.5 mg Documented by: Fish Oil ([place]-3 (Purified Fish Oil) 1 Gm Cap) 1 gm PO QAM [facility] Stop: 10/29/20 08:59 Last Admin: 09/30/20 07:22 Dose: 1 gm Documented by: Fluticasone/Vilanterol (Fluticasone/Vilanterol 200/25mcg 14 Puffs/Inhaler) 1 puffs INH DAILY [facility] Stop: 10/29/20 08:59 Last Admin: 09/30/20 07:26 Dose: Not Given Documented by: Gabapentin (Gabapentin 400 Mg Cap) 400 mg PO TID [facility] Stop: 10/28/20 20:59 Last Admin: 09/30/20 07:22 Dose: 400 mg Documented by: Hydroxyzine HCl (Hydroxyzine Hcl 25 Mg Tab) 50 mg PO HSZ PRN PRN Reason: Insomnia Stop: 10/28/20 17:22 Hydroxyzine HCl (Hydroxyzine Hcl 25 Mg Tab) 25 mg PO Q4H PRN PRN Reason: Anxiety Stop: 10/28/20 17:22 Last Admin: 09/29/20 18:20 Dose: 25 mg Documented by: Ipratropium [place] (Ipratropium [place] Nasal [place] 0.06% 15ml) 2 sprays ERICH Q12 [facility] Stop: 10/28/20 20:59 Last Admin: 09/30/20 07:38 Dose: Not Given Documented by: Levothyroxine Sodium (Levothyroxine Sodium 88 Mcg Tablet) 88 mcg PO DAILYBB [facility] Stop: 10/29/20 06:29 Last Admin: 09/30/20 07:21 Dose: 88 mcg Documented by: Loratadine (Loratadine 10 Mg Tab) 10 mg PO QAM [facility] Stop: 10/29/20 08:59 Last Admin: 09/30/20 07:23 Dose: 10 mg Documented by: Magnesium Hydroxide (Magnesium Hydroxide Susp 30 Ml Udc) 30 ml PO DAILY PRN PRN Reason: Constipation Stop: 10/28/20 17:22 Metoprolol Tartrate (Metoprolol Tartrate 25 Mg Tab) 12.5 mg PO BID [facility] Stop: 10/28/20 20:59 Last Admin: 09/30/20 07:23 Dose: 12.5 mg Documented by: Nicotine Polacrilex (Nicotine Polacrilex 2 Mg Gum) 1 piece MT PRN PRN PRN Reason: Nicotine Withdrawal Stop: 10/28/20 17:22 Quetiapine Fumarate (Quetiapine Fumarate 100 Mg Tablet) 100 mg PO BID [facility] Stop: 10/28/20 20:59 Last Admin: 09/30/20 07:25 Dose: 100 mg Documented by: Simvastatin (Simvastatin 40 Mg Tab) 40 mg PO PM [facility] Stop: 10/28/20 20:59 Last Admin: 09/29/20 20:46 Dose: 40 mg Documented by: Sodium Chloride (Sodium Chloride 0.65% Na Soln 45 Ml ([place])) 1 - 2 sprays NA PRN PRN PRN Reason: Nasal Dryness/Congestion Stop: 10/28/20 17:22 Tramadol HCl (Tramadol Hcl 50 Mg Tablet) 50 mg PO TID PRN PRN Reason: pain Stop: 10/28/20 17:34 Last Admin: 09/30/20 05:02 Dose: 50 mg Documented by: Trazodone HCl (Trazodone Hcl 50 Mg Tab) 100 mg PO HS PRN PRN Reason: Insomnia Stop: 10/28/20 17:56 Last Admin: 09/29/20 23:51 Dose: 100 mg Documented by: Trimethoprim/Sulfamethoxazole (Sulfamethoxazole/Trimethoprim Ds 800/160mg Tab) 1 tab PO Q12 [facility] Stop: 10/05/20 10:00 Last Admin: 09/30/20 07:25 Dose: 1 tab Documented by: Umeclidinium [place] (Umeclidinium [place] 62.5mcg/Blister 7 Puffs/Inhaler) 1 puffs INH DAILY [facility] Stop: 10/29/20 08:59 Last Admin: 09/30/20 07:25 Dose: Not Given Documented by: Vitamin D (Cholecalciferol 1,000 Units 25 Mcg Tab) 2,000 units PO QAM [facility] Stop: 10/29/20 08:59 Last Admin: 09/30/20 07:21 Dose: 2,000 units Documented by: Mental Health & Subst Abuse Tx Psychiatrist Name of Psychiatrist: Velvet Psychiatrist's Psychiatric Appointment Comment: [address] [place] [address] Therapist Name of Therapist: . Contracting Support Specialist Name of Contracting Support Specialist: [employer] Phone Number for Contracting Support Specialist: [phone] Date of Appointment with Contracting Support Specialist: 10/07/20 Post Discharge Appointments Primary Care Physician Name Of Family Doctor: MAN Lancaster (JADEN Olvera) Primary Care Provider Appointment Comment: [facility] [address] , [place], [place] [address] Specialist Name of Specialist: [facility] Cardiology - Dr. Ga Villareal Phone Number for Specialist: Date of Appointment with Specialist: 10/24/20 Time of Appointment with Specialist: 1:30 p.m. Specialty Appointment Comment: [address], [place] [address] (1) Schizophrenia Schizophrenia type: unspecified Qualified Code(s): F20.9 - Schizophrenia, unspecified
[2020-09-30] MEDS: ACETAMINOPHEN 325 MG TAB PO PRN ×2 (13:14→19:17)
[2020-09-30] MEDS: hydrOXYzine HCl 25 MG TAB PO PRN (19:17)
[2020-09-30] MEDS: SIMVASTATIN 40 MG TAB PO SCH (21:16)
[2020-09-30] MEDS ORDERED: QUEtiapine FUMARATE 200 MG TAB PO SCH (22:00)
[2020-09-30] MEDS: traZODone HCL 50 MG TAB PO PRN (22:48)
[2020-10-01] MEDS: ACETAMINOPHEN 325 MG TAB PO PRN ×2 (06:39→18:10)
[2020-10-01] MEDS: LEVOTHYROXINE SODIUM 88 MCG TABLET PO SCH (06:41)
[2020-10-01] MEDS ORDERED: QUEtiapine FUMARATE 100 MG TABLET PO SCH (09:00)
[2020-10-01] MEDS: clonazePAM 0.5 MG TAB PO SCH ×2 (09:01→20:24)
[2020-10-01] MEDS: ASPIRIN 81 MG ECTAB PO SCH (09:01)
[2020-10-01] MEDS: FLUTICASONE/VILANTEROL 200/25MCG 14 PUFFS/INHALER INH SCH (09:01)
[2020-10-01] MEDS: OMEGA-3 (PURIFIED FISH OIL) 1 GM CAP PO SCH (09:01)
[2020-10-01] MEDS: CHOLECALCIFEROL 1,000 UNITS 25 MCG TAB PO SCH (09:01)
[2020-10-01] MEDS: METOPROLOL TARTRATE 25 MG TAB PO SCH ×2 (09:02→20:25)
[2020-10-01] MEDS: LORATADINE 10 MG TAB PO SCH (09:02)
[2020-10-01] MEDS: IPRATROPIUM BROMIDE NASAL SPRAY 0.06% 15ML NAE SCH ×2 (09:02→20:33)
[2020-10-01] MEDS: GABAPENTIN 400 MG CAP PO SCH ×3 (09:02→20:24)
[2020-10-01] MEDS: SULFAMETHOXAZOLE/TRIMETHOPRIM DS 800/160MG TAB PO SCH ×2 (09:04→20:27)
[2020-10-01] MEDS: UMECLIDINIUM BROMIDE 62.5MCG/BLISTER 7 PUFFS/INHALER INH SCH (09:06)
--- NOTE | 2020-10-01 11:11 | Progress Note ---
Date of Service October 01, 2020 Assessment & Plan (1) Schizophrenia: 10/01/2020atient is tolerating Seroquel well, will continue with up titration and plan for a 200 mg dose twice daily starting tomorrow. The target for this medication will be not so much the delusions that the patient is expe riencing as those are longstanding in nature, but rather the distress she experiences when preoccupied with these delusions. 09/30/20--titrate Seroquel 100 mg am and 200 mg po qhs for ongoing psychosis. Completed paperwork for conversion hearing (outpatient to inpatient). 09/29/20--The patient was admitted to the [facility] ([facility]) on q15 min checks (behavioral with suicide precautions) for safety. The patient will participate in group, recreational, and milieu therapies and will be offered additional individual and family sessions as clinically appropriate. It is not clear how consistently she was taking medication so will continue on current doses. Will increase Seroquel as indicated though should also consider COOK. Patient has metabolic labs within the last 3 months. Schizophrenia type: unspecified Qualified Code(s): F20.9 - Schizophrenia, unspecified Admission and Anticipated Discharge Date Admission Date: September 28, 2020 Subjective Patient seen, chart reviewed, case discussed with treatment team. Patient was seen in the day room. Initially she had requested a female escort for her meeting with publicity writer, but did not ask for this upon publicity writer meeting the patient. Patient continues to endorse gustatory hallucinations as well as feelings of paranoia. Continues to be tangential in speech and thought process. She does acknowledge a good appetite and an otherwise stable mood. Denies any suicidal ideation or homicidal ideation. She does acknowledge sleeping decently last night but states she did have some nighttime awakenings. Patient denies any increase in anxiety. Review of Systems Review of Systems: All systems reviewed & are unremarkable except as noted in HPI & below Physical Exam Psychiatric: Orientation: alert, oriented to person and oriented to place Apperance: + disheveled Eye Contact: + fair eye contact Motor Behavior: steady gait and station Speech: normal rate/rhythm/volume of speech Affect: + labile affect Thought Process: + circumstantial thought process, + tangential thought process and + confabulations Thought Content: + paranoid and + delusions Suicidal Thoughts: denies suicidal thoughts Homicidal Thou ghts: denies homicidal thoughts Hallucinations: + gustatory hallucinations Cognition: recent memory grossly intact Insight: + impaired insight Judgement: + impaired judgement Results & Data ([facility]) Vital Signs (Past 12 Hours) Vital Signs Temp Pulse Resp BP 10/01/20 06:55 93 H 114/68 10/01/20 06:53 36.8 C 90 16 105/66
[2020-10-01] MEDS: hydrOXYzine HCl 25 MG TAB PO PRN (14:25)
[2020-10-01] MEDS: SIMVASTATIN 40 MG TAB PO SCH (20:27)
[2020-10-01] MEDS: QUEtiapine FUMARATE 200 MG TAB PO SCH (20:27)
[2020-10-01] MEDS: traMADol HCL 50 MG TABLET PO PRN (23:28)
[2020-10-01] MEDS: traZODone HCL 50 MG TAB PO PRN (23:37)
[2020-10-02] MEDS: LEVOTHYROXINE SODIUM 88 MCG TABLET PO SCH (07:41)
[2020-10-02] MEDS: traMADol HCL 50 MG TABLET PO PRN ×2 (07:41→18:43)
[2020-10-02] MEDS: METOPROLOL TARTRATE 25 MG TAB PO SCH ×2 (08:59→21:05)
[2020-10-02] MEDS: ASPIRIN 81 MG ECTAB PO SCH (08:59)
[2020-10-02] MEDS: GABAPENTIN 400 MG CAP PO SCH ×3 (08:59→21:05)
[2020-10-02] MEDS: LORATADINE 10 MG TAB PO SCH (08:59)
[2020-10-02] MEDS: clonazePAM 0.5 MG TAB PO SCH ×2 (09:00→21:05)
[2020-10-02] MEDS: SULFAMETHOXAZOLE/TRIMETHOPRIM DS 800/160MG TAB PO SCH ×2 (09:00→21:07)
[2020-10-02] MEDS: CHOLECALCIFEROL 1,000 UNITS 25 MCG TAB PO SCH (09:00)
[2020-10-02] MEDS: OMEGA-3 (PURIFIED FISH OIL) 1 GM CAP PO SCH (09:00)
[2020-10-02] MEDS: QUEtiapine FUMARATE 200 MG TAB PO SCH (09:00)
[2020-10-02] MEDS: FLUTICASONE/VILANTEROL 200/25MCG 14 PUFFS/INHALER INH SCH (09:14)
[2020-10-02] MEDS: IPRATROPIUM BROMIDE NASAL SPRAY 0.06% 15ML NAE SCH ×2 (09:14→21:26)
[2020-10-02] MEDS: UMECLIDINIUM BROMIDE 62.5MCG/BLISTER 7 PUFFS/INHALER INH SCH (09:15)
--- NOTE | 2020-10-02 13:16 | Psychiatric Progress Note ---
Date of Service October 02, 2020 Impression / Recommendations Impression 60 yo female with history of delusional and disorganized behavior, prior dx of schizophrenia, previous admission here for psychosis, failing outpatient level of care, admit from 304 outpatient commitment. She is currently more organized and cooperative than last presentation but tends to escalate quickly so will continue on MNPR and elopement precautions. Home doses of medication initially continued as compliance was unclear. 09/30/20--remains delusional (1) Schizophrenia: 10/02/2020--patient continues to tolerate Seroquel medication well. We will plan to increase dose to 200 mg p.o. every morning, 300 mg p.o. nightly. Patient's thought process is still somewhat disorganized although improving. 10/01/2020atient is tolerating Seroquel well, will continue with up titration and plan for a 200 mg dose twice daily starting tomorrow. The target for this medication will be not so much the delusions that the patient is experiencing as those are longstanding in nature, but rather the distress she experiences when preoccupied with these delusions. 09/30/20--titrate Seroquel 100 mg am and 200 mg po qhs for ongoing psychosis. Completed paperwork for conversion hearing (outpatient to inpatient). 09/29/20--The patient was [facility] ([facility]) on q15 min checks (behavioral with suicide precautions) for safety. The patient will participate in group, recreational, and milieu therapies and will be offered additional individual and family sessions as clinically appropriate. It is not clear how consistently she was taking medication so will continue on current doses. Will increase Seroquel as indicated though should also consider COOK. Patient has metabolic labs within the last 3 months. Inventory Assets Strengths: has been accepting of outpatient services, loves her dog Needs: housing Risk Factors Assessment : Yes Do You Have Access To A Gun?: No Mental Health Diagnoses: Yes Substance Use Disorders: No Previous Attempt: Yes Previous Psychiatric Hospitalization: Yes Smoker: Yes Protective Factors Assessment : No Responsible for Young Children: No (but yes for dog) Employed: No Interval History Identifying Information 60 yo female, previous recent admit to for psychosis, was on 304 outpatient commitment. Chief Complaint "I'm feeling better but i still have the smell". Review of Systems Sleep Information Total Hours of Sleep: 4.75 Meal Information Percent Meal Consumed - Breakfast: 50 Percent Meal Consumed - Lunch: 100 Percent Meal Consumed - Dinner: 100 Nutrition Comment: half of meal dated, labeled and refrigerated per pt. request. Subjective Subjective Patient was seen & assessed and interval progress reviewed with treatment team nursing and social work. Patient reports a good night of sleep as well as a strong appetite. She states that her mood is okay, although she does endorse some anxiety. Patient is still endorsing gustatory hallucinations as well as some paranoia. She is denying any suicidal or homicidal ideation. Physical Exam Psychiatric Orientation: alert, oriented to person and oriented to place Apperance: appropriately groomed and + disheveled Eye Contact: + fair eye contact Motor Behavior: steady gait and station and no abnormal motor movements Speech: normal rate/rhythm/volume of speech Affect: + anxious affect and + labile affect Mood: + anxious mood Thought Process: + circumstantial thought process, + tangential thought process, + confabulations and + concrete thought process Thought Content: + paranoid and + delusions Suicidal Thoughts: denies suicidal thoughts Homicidal Thoughts: denies homicidal thoughts Hallucinations: + gustatory hallucinations; no auditory hallucinations and no visual hallucinations Cognition: recent memory grossly intact, remote memory grossly intact, attention grossly intact and language grossly intact Estimated Intelligence: consistent with education level Insight: + poor insight and + impaired insight Judgement: + poor judgement and + impaired judgement Vital Signs (Past 24 Hours) Last Vital Signs Temp 36.7 C 10/02/20 08:18 Pulse 85 10/02/20 08:19 Resp 18 10/02/20 08:19 BP 98/60 L 10/02/20 08:19 Pulse Ox 97 09/28/20 17:43 Results & Data ([facility]) Current Inpatient Medications Current Inpatient Medications: Current Inpatient Medications Acetaminophen (Acetaminophen 325 Mg Tab) 650 mg PO Q4H PRN PRN Reason: Headache or Minor Fever Stop: 10/28/20 17:22 Last Admin: 10/01/20 18:10 Dose: 650 mg Documented by: Al Hydrox/Mg Hydrox/Simethicone (Aluminum/Magnesium Susp 30 Ml Udc) 30 ml PO Q4H PRN PRN Reason: GI Upset Stop: 10/28/20 17:22 Albuterol (Albuterol Hfa 8 Gm Inhaler) 2 puffs INH Q4 PRN PRN Reason: wheezing Stop: 10/28/20 17:52 Aspirin (Aspirin 81 Mg Ectab) 81 mg PO QAM [facility] Stop: 10/29/20 08:59 Last Admin: 10/02/20 08:59 Dose: 81 mg Documented by: Bismuth Subsalicylate (Bismuth Subsalicylate Liqd 236 Ml) 15 ml PO PRN PRN PRN Reason: Loose Stool Stop: 10/28/20 17:22 Clonazepam (Clonazepam 0.5 Mg Tab) 0.5 mg PO BID [facility] Stop: 10/28/20 20:59 Last Admin: 10/02/20 09:00 Dose: 0.5 mg Documented by: Fish Oil ([place]-3 (Purified Fish Oil) 1 Gm Cap) 1 gm PO QAM [facility] Stop: 10/29/20 08:59 Last Admin: 10/02/20 09:00 Dose: 1 gm Documented by: Fluticasone/Vilanterol (Fluticasone/Vilanterol 200/25mcg 14 Puffs/Inhaler) 1 puffs INH DAILY [facility] Stop: 10/29/20 08:59 Last Admin: 10/02/20 09:14 Dose: Not Given Documented by: Gabapentin (Gabapentin 400 Mg Cap) 400 mg PO TID [facility] Stop: 10/28/20 20:59 Last Admin: 10/02/20 08:59 Dose: 400 mg Documented by: Hydroxyzine HCl (Hydroxyzine Hcl 25 Mg Tab) 50 mg PO HSZ PRN PRN Reason: Insomnia Stop: 10/28/20 17:22 Last Admin: 09/30/20 21:15 Dose: 50 mg Documented by: Hydroxyzine HCl (Hydroxyzine Hcl 25 Mg Tab) 25 mg PO Q4H PRN PRN Reason: Anxiety Stop: 10/28/20 17:22 Last Admin: 10/01/20 14:25 Dose: 25 mg Documented by: Ipratropium [place] (Ipratropium [place] Nasal [place] 0.06% 15ml) 2 sprays ERICH Q12 [facility] Stop: 10/28/20 20:59 Last Admin: 10/02/20 09:14 Dose: Not Given Documented by: Levothyroxine Sodium (Levothyroxine Sodium 88 Mcg Tablet) 88 mcg PO DAILYBB [facility] Stop: 10/29/20 06:29 Last Admin: 10/02/20 07:41 Dose: 88 mcg Documented by: Loratadine (Loratadine 10 Mg Tab) 10 mg PO QAM [facility] Stop: 10/29/20 08:59 Last Admin: 10/02/20 08:59 Dose: 10 mg Documented by: Magnesium Hydroxide (Magnesium Hydroxide Susp 30 Ml Udc) 30 ml PO DAILY PRN PRN Reason: Constipation Stop: 10/28/20 17:22 Metoprolol Tartrate (Metoprolol Tartrate 25 Mg Tab) 12.5 mg PO BID [facility] Stop: 10/28/20 20:59 Last Admin: 10/02/20 08:59 Dose: Not Given Documented by: Nicotine Polacrilex (Nicotine Polacrilex 2 Mg Gum) 1 piece MT PRN PRN PRN Reason: Nicotine Withdrawal Stop: 10/28/20 17:22 Quetiapine Fumarate (Quetiapine Fumarate 200 Mg Tab) 200 mg PO QAM [facility] Stop: 11/02/20 08:59 Quetiapine Fumarate (Quetiapine Fumarate 300 Mg Tablet) 300 mg PO HS [facility] Stop: 11/01/20 21:59 Simvastatin (Simvastatin 40 Mg Tab) 40 mg PO PM [facility] Stop: 10/28/20 20:59 Last Admin: 10/01/20 20:27 Dose: 40 mg Documented by: Sodium Chloride (Sodium Chloride 0.65% Na Soln 45 Ml ([place])) 1 - 2 sprays NA PRN PRN PRN Reason: Nasal Dryness/Congestion Stop: 10/28/20 17:22 Tramadol HCl (Tramadol Hcl 50 Mg Tablet) 50 mg PO TID PRN PRN Reason: pain Stop: 10/28/20 17:34 Last Admin: 10/02/20 07:41 Dose: 50 mg Documented by: Trazodone HCl (Trazodone Hcl 50 Mg Tab) 100 mg PO HS PRN PRN Reason: Insomnia Stop: 10/28/20 17:56 Last Admin: 10/01/20 23:37 Dose: 100 mg Documented by: Trimethoprim/Sulfamethoxazole (Sulfamethoxazole/Trimethoprim Ds 800/160mg Tab) 1 tab PO Q12 [facility] Stop: 10/05/20 10:00 Last Admin: 10/02/20 09:00 Dose: 1 tab Documented by: Umeclidinium [place] (Umeclidinium [place] 62.5mcg/Blister 7 Puffs/Inhaler) 1 puffs INH DAILY [facility] Stop: 10/29/20 08:59 Last Admin: 10/02/20 09:15 Dose: Not Given Documented by: Vitamin D (Cholecalciferol 1,000 Units 25 Mcg Tab) 2,000 units PO QAM [facility] Stop: 10/29/20 08:59 Last Admin: 10/02/20 09:00 Dose: 2,000 units Documented by: Mental Health & Subst Abuse Tx Psychiatrist Name of Psychiatrist: Velvet Sanchez Psychiatrist's Date of Appointment with Psychiatrist: 10/21/20 Time of Appointment with Psychiatrist: 9:00 a.m. Psychiatric Appointment Comment: [address] [place] [address] Therapist Name of Therapist: . Division Human Resources Manager Name of Division Human Resources Manager: [employer] Phone Number for Division Human Resources Manager: [phone] Date of Appointment with Division Human Resources Manager: 10/07/20 Post Discharge Appointments Primary Care Physician Name Of Family Doctor: MAN Lancaster (May PAUrvashiC) Primary Care Provider Appointment Comment: [address] [place] [address], [place] [address] Specialist Name of Specialist: MAN Cardiology - Dr. Ga Villareal Phone Number for Specialist: Date of Appointment with Specialist: 10/24/20 Time of Appointment with Specialist: 1:30 p.m. Specialty Appointment Comment: [address], [place] [address] (1) Schizophrenia Schizophrenia type: unspecified Qualified Code(s): F20.9 - Schizophrenia, unspecified
[2020-10-02] MEDS: DOCUSATE SODIUM 100 MG CAP PO SCH ×2 (16:11→21:05)
[2020-10-02] MEDS: hydrOXYzine HCl 25 MG TAB PO PRN (18:42)
[2020-10-02] MEDS: SIMVASTATIN 40 MG TAB PO SCH (21:06)
[2020-10-02] MEDS ORDERED: QUEtiapine FUMARATE 300 MG TABLET PO SCH (22:00)
[2020-10-03] MEDS: ASPIRIN 81 MG ECTAB PO SCH (08:38)
[2020-10-03] MEDS: LEVOTHYROXINE SODIUM 88 MCG TABLET PO SCH (08:38)
[2020-10-03] MEDS: OMEGA-3 (PURIFIED FISH OIL) 1 GM CAP PO SCH (08:39)
[2020-10-03] MEDS: CHOLECALCIFEROL 1,000 UNITS 25 MCG TAB PO SCH (08:39)
[2020-10-03] MEDS: DOCUSATE SODIUM 100 MG CAP PO SCH ×2 (08:39→21:49)
[2020-10-03] MEDS: clonazePAM 0.5 MG TAB PO SCH ×2 (08:39→21:52)
[2020-10-03] MEDS: LORATADINE 10 MG TAB PO SCH (08:40)
[2020-10-03] MEDS: GABAPENTIN 400 MG CAP PO SCH ×3 (08:40→21:49)
[2020-10-03] MEDS: METOPROLOL TARTRATE 25 MG TAB PO SCH ×2 (08:40→21:49)
[2020-10-03] MEDS: SULFAMETHOXAZOLE/TRIMETHOPRIM DS 800/160MG TAB PO SCH ×2 (08:41→21:49)
[2020-10-03] MEDS: QUEtiapine FUMARATE 200 MG TAB PO SCH ×2 (08:41→21:49)
[2020-10-03] MEDS: FLUTICASONE/VILANTEROL 200/25MCG 14 PUFFS/INHALER INH SCH (08:43)
[2020-10-03] MEDS: UMECLIDINIUM BROMIDE 62.5MCG/BLISTER 7 PUFFS/INHALER INH SCH (08:44)
[2020-10-03] MEDS: IPRATROPIUM BROMIDE NASAL SPRAY 0.06% 15ML NAE SCH ×2 (08:44→21:51)
--- NOTE | 2020-10-03 10:22 | Psychiatric Progress Note ---
Date of Service October 03, 2020 Impression / Recommendations Impression 60 yo female with history of delusional and disorganized behavior, prior dx of schizophrenia, previous admission here for psychosis, failing outpatient level of care, admit from 304 outpatient commitment. She is currently more organized and cooperative than last presentation but tends to escalate quickly so will continue on MNPR and elopement precautions. Home doses of medication initially continued as compliance was unclear. 09/30/20--remains delusional (1) Schizophrenia: 10/03/2020atient is tolerating Seroquel medication. Plan to increase the nightly dose to 400 mg p.o. We will leave the morning dose as 200 mg p.o. Patient remains with poor insight, although thought process is more organized today. 10/02/2020--patient continues to tolerate Seroquel medication well. We will plan to increase dose to 200 mg p.o. every morning, 300 mg p.o. nightly. Patient's thought process is still somewhat disorganized although improving. 10/01/2020atient is tolerating Seroquel well, will continue with up titration and plan for a 200 mg dose twice daily starting tomorrow. The target for this medication will be not so much the delusions that the patient is experiencing as those are longstanding in nature, but rather the distress she experiences when preoccupied with these delusions. 09/30/20--titrate Seroquel 100 mg am and 200 mg po qhs for ongoing psychosis. Completed paperwork for conversion hearing (outpatient to inpatient). 09/29/20--The patient was admitted to the [facility] ([facility] inpatient mental health unit) on q15 min checks (behavioral with suicide precautions) for safety. The patient will participate in group, recreational, and milieu therapies and will be offered additional individual and family sessions as clinically appropriate. It is not clear how consistently she was taking medication so will continue on current doses. Will increase Seroquel as indicated though should also consider COOK. Patient has metabolic labs within the last 3 months. Inventory Assets Strengths: has been accepting of outpatient services, loves her dog Needs: housing Risk Factors Assessment : Yes Do You Have Access To A Gun?: No Mental Health Diagnoses: Yes Substance Use Disorders: No Previous Attempt: Yes Previous Psychiatric Hospitalization: Yes Smoker: Yes Protective Factors Assessment : No Responsible for Young Children: No (but yes for dog) Employed: No Interval History Identifying Information 60 yo female, previous recent admit to for psychosis, was on 304 outpatient commitment. Chief Complaint "I am mad because Louie did not bring the sweatpants". Review of Systems Sleep Information Total Hours of Sleep: 6.5 Meal Information Percent Meal Consumed - Breakfast: 50 Percent Meal Consumed - Lunch: 100 Percent Meal Consumed - Dinner: 50 Nutrition Comment: half of meal dated, labeled and refrigerated per pt. request. Subjective Subjective Patient was seen & assessed and interval progress reviewed with treatment team nursing and social work Patient was cooperative around interview this morning. She was informed that she has a court date as well as the topic of the court discussion this morning. Patient was in agreement with the plan to stay inpatient but continues to deny having schizophrenia. Patient is endorsing a strong appetite, as well as reports a good night of sleep last night. She is still reporting the presence of gustatory hallucinations as well as a degree of paranoia, however reports that these are improved from yesterday and the day before. She expresses anger towards her ex-boyfriend for not having brought her sweatpants today. Patient was explained that she might be misunderstanding that relationship with Louie. Physical Exam Psychiatric Orientation: alert, oriented to person and oriented to place Apperance: appropriately groomed and + disheveled Eye Contact: + fair eye contact Motor Behavior: steady gait and station and no abnormal motor movements Speech: normal rate/rhythm/volume of speech Affect: + anxious affect and + constricted affect Mood: + anxious mood; no depressed mood Thought Process: + circumstantial thought process, + tangential thought process, + confabulations and + concrete thought process Thought Content: + paranoid and + delusions Suicidal Thoughts: denies suicidal thoughts Homicidal Thoughts: denies homicidal thoughts Hallucinations: + gustatory hallucinations; no auditory hallucinations and no visual hallucinations Cognition: recent memory grossly intact, remote memory grossly intact, attention grossly intact and language grossly intact Estimated Intelligence: consistent with education level Insight: + poor insight and + impaired insight Judgement: + poor judgement and + impaired judgement Vital Signs (Past 24 Hours) Last Vital Signs Temp 36.9 C 10/03/20 06:40 Pulse 92 H 10/03/20 06:41 Resp 16 10/03/20 06:40 BP 97/61 L 10/03/20 06:41 Pulse Ox 97 09/28/20 17:43 Results & Data ([facility]) Current Inpatient Medications Current Inpatient Medications: Current Inpatient Medications Acetaminophen (Acetaminophen 325 Mg Tab) 650 mg PO Q4H PRN PRN Reason: Headache or Minor Fever Stop: 10/28/20 17:22 Last Admin: 10/01/20 18:10 Dose: 650 mg Documented by: Al Hydrox/Mg Hydrox/Simethicone (Aluminum/Magnesium Susp 30 Ml Udc) 30 ml PO Q4H PRN PRN Reason: GI Upset Stop: 10/28/20 17:22 Albuterol (Albuterol Hfa 8 Gm Inhaler) 2 puffs INH Q4 PRN PRN Reason: wheezing Stop: 10/28/20 17:52 Aspirin (Aspirin 81 Mg Ectab) 81 mg PO QAM [facility] Stop: 10/29/20 08:59 Last Admin: 10/03/20 08:38 Dose: 81 mg Documented by: Bismuth Subsalicylate (Bismuth Subsalicylate Liqd 236 Ml) 15 ml PO PRN PRN PRN Reason: Loose Stool Stop: 10/28/20 17:22 Clonazepam (Clonazepam 0.5 Mg Tab) 0.5 mg PO BID [facility] Stop: 10/28/20 20:59 Last Admin: 10/03/20 08:39 Dose: 0.5 mg Documented by: Docusate Sodium (Docusate Sodium 100 Mg Cap) 100 mg PO BID [facility] Stop: 11/01/20 20:59 Last Admin: 10/03/20 08:39 Dose: 100 mg Documented by: Fish Oil ([place]-3 (Purified Fish Oil) 1 Gm Cap) 1 gm PO QAM [facility] Stop: 10/29/20 08:59 Last Admin: 10/03/20 08:39 Dose: 1 gm Documented by: Fluticasone/Vilanterol (Fluticasone/Vilanterol 200/25mcg 14 Puffs/Inhaler) 1 puffs INH DAILY [facility] Stop: 10/29/20 08:59 Last Admin: 10/03/20 08:43 Dose: Not Given Documented by: Gabapentin (Gabapentin 400 Mg Cap) 400 mg PO TID [facility] Stop: 10/28/20 20:59 Last Admin: 10/03/20 08:40 Dose: 400 mg Documented by: Hydroxyzine HCl (Hydroxyzine Hcl 25 Mg Tab) 50 mg PO HSZ PRN PRN Reason: Insomnia Stop: 10/28/20 17:22 Last Admin: 09/30/20 21:15 Dose: 50 mg Documented by: Hydroxyzine HCl (Hydroxyzine Hcl 25 Mg Tab) 25 mg PO Q4H PRN PRN Reason: Anxiety Stop: 10/28/20 17:22 Last Admin: 10/02/20 18:42 Dose: 25 mg Documented by: Ipratropium [place] (Ipratropium [place] Nasal [place] 0.06% 15ml) 2 sprays ERICH Q12 [facility] Stop: 10/28/20 20:59 Last Admin: 10/03/20 08:44 Dose: Not Given Documented by: Levothyroxine Sodium (Levothyroxine Sodium 88 Mcg Tablet) 88 mcg PO DAILYBB [facility] Stop: 10/29/20 06:29 Last Admin: 10/03/20 08:38 Dose: 88 mcg Documented by: Loratadine (Loratadine 10 Mg Tab) 10 mg PO QAM [facility] Stop: 10/29/20 08:59 Last Admin: 10/03/20 08:40 Dose: 10 mg Documented by: Magnesium Hydroxide (Magnesium Hydroxide Susp 30 Ml Udc) 30 ml PO DAILY PRN PRN Reason: Constipation Stop: 10/28/20 17:22 Metoprolol Tartrate (Metoprolol Tartrate 25 Mg Tab) 12.5 mg PO BID [facility] Stop: 10/28/20 20:59 Last Admin: 10/03/20 08:40 Dose: 12.5 mg Documented by: Nicotine Polacrilex (Nicotine Polacrilex 2 Mg Gum) 1 piece MT PRN PRN PRN Reason: Nicotine Withdrawal Stop: 10/28/20 17:22 Quetiapine Fumarate (Quetiapine Fumarate 200 Mg Tab) 200 mg PO QAM [facility] Stop: 11/02/20 08:59 Last Admin: 10/03/20 08:41 Dose: 200 mg Documented by: Quetiapine Fumarate (Quetiapine Fumarate 300 Mg Tablet) 300 mg PO HS [facility] Stop: 11/01/20 21:59 Last Admin: 10/02/20 21:07 Dose: 300 mg Documented by: Simvastatin (Simvastatin 40 Mg Tab) 40 mg PO PM [facility] Stop: 10/28/20 20:59 Last Admin: 10/02/20 21:06 Dose: 40 mg Documented by: Sodium Chloride (Sodium Chloride 0.65% Na Soln 45 Ml ([place])) 1 - 2 sprays NA PRN PRN PRN Reason: Nasal Dryness/Congestion Stop: 10/28/20 17:22 Tramadol HCl (Tramadol Hcl 50 Mg Tablet) 50 mg PO TID PRN PRN Reason: pain Stop: 10/28/20 17:34 Last Admin: 10/02/20 18:43 Dose: 50 mg Documented by: Trazodone HCl (Trazodone Hcl 50 Mg Tab) 100 mg PO HS PRN PRN Reason: Insomnia Stop: 10/28/20 17:56 Last Admin: 10/01/20 23:37 Dose: 100 mg Documented by: Trimethoprim/Sulfamethoxazole (Sulfamethoxazole/Trimethoprim Ds 800/160mg Tab) 1 tab PO Q12 [facility] Stop: 10/05/20 10:00 Last Admin: 10/03/20 08:41 Dose: 1 tab Documented by: Umeclidinium [place] (Umeclidinium [place] 62.5mcg/Blister 7 Puffs/Inhaler) 1 puffs INH DAILY [facility] Stop: 10/29/20 08:59 Last Admin: 10/03/20 08:44 Dose: Not Given Documented by: Vitamin D (Cholecalciferol 1,000 Units 25 Mcg Tab) 2,000 units PO QAM [facility] Stop: 10/29/20 08:59 Last Admin: 10/03/20 08:39 Dose: 2,000 units Documented by: Mental Health & Subst Abuse Tx Psychiatrist Name of Psychiatrist: Velvet Sanchez Psychiatrist's Date of Appointment with Psychiatrist: 10/21/20 Time of Appointment with Psychiatrist: 9:00 a.m. Psychiatric Appointment Comment: [address] [place] [address] Therapist Name of Therapist: . Crane Engineer Name of Crane Engineer: [employer] Phone Number for Crane Engineer: [phone] Date of Appointment with Crane Engineer: 10/07/20 Post Discharge Appointments Primary Care Physician Name Of Family Doctor: MAN Lancaster (JADEN Olvera) Primary Care Provider Appointment Comment: [address] [place] [address] Specialist Name of Specialist: [facility] Cardiology - Dr. Ga Villareal Phone Number for Specialist: Date of Appointment with Specialist: 10/24/20 Time of Appointment with Specialist: 1:30 p.m. Specialty Appointment Comment: [address], [place] [address] (1) Schizophrenia Schizophrenia type: unspecified Qualified Code(s): F20.9 - Schizophrenia, unspecified
[2020-10-03] MEDS: traMADol HCL 50 MG TABLET PO PRN (21:47)
[2020-10-03] MEDS: traZODone HCL 50 MG TAB PO PRN (21:48)
[2020-10-03] MEDS: SIMVASTATIN 40 MG TAB PO SCH (21:49)
[2020-10-04] MEDS: LEVOTHYROXINE SODIUM 88 MCG TABLET PO SCH (07:38)
[2020-10-04] MEDS: GABAPENTIN 400 MG CAP PO SCH ×3 (07:38→21:27)
[2020-10-04] MEDS: SULFAMETHOXAZOLE/TRIMETHOPRIM DS 800/160MG TAB PO SCH ×2 (07:39→21:31)
[2020-10-04] MEDS: CHOLECALCIFEROL 1,000 UNITS 25 MCG TAB PO SCH (07:39)
[2020-10-04] MEDS: clonazePAM 0.5 MG TAB PO SCH ×2 (07:39→21:25)
[2020-10-04] MEDS: LORATADINE 10 MG TAB PO SCH (07:39)
[2020-10-04] MEDS: QUEtiapine FUMARATE 200 MG TAB PO SCH ×2 (07:39→21:31)
[2020-10-04] MEDS: DOCUSATE SODIUM 100 MG CAP PO SCH ×2 (07:39→21:25)
[2020-10-04] MEDS: METOPROLOL TARTRATE 25 MG TAB PO SCH ×2 (07:40→21:29)
[2020-10-04] MEDS: ASPIRIN 81 MG ECTAB PO SCH (07:41)
[2020-10-04] MEDS: OMEGA-3 (PURIFIED FISH OIL) 1 GM CAP PO SCH (07:41)
[2020-10-04] MEDS: FLUTICASONE/VILANTEROL 200/25MCG 14 PUFFS/INHALER INH SCH (07:41)
[2020-10-04] MEDS: UMECLIDINIUM BROMIDE 62.5MCG/BLISTER 7 PUFFS/INHALER INH SCH (07:41)
[2020-10-04] MEDS: IPRATROPIUM BROMIDE NASAL SPRAY 0.06% 15ML NAE SCH ×2 (07:42→21:38)
--- NOTE | 2020-10-04 11:55 | Psychiatric Progress Note ---
Date of Service October 04, 2020 Impression / Recommendations Impression 60 yo female with history of delusional and disorganized behavior, prior dx of schizophrenia, previous admission here for psychosis, failing outpatient level of care, admit from 304 outpatient commitment. She is currently more organized and cooperative than last presentation but tends to escalate quickly so will continue on MNPR and elopement precautions. Home doses of medication initially continued as compliance was unclear. (1) Schizophrenia: 10/04/2020atient continues to tolerate Seroquel medication well. Psychotic symptoms seem to be responding to the current dose. We will continue on this dose for now and continue to monitor observe signs and symptoms. 10/03/2020atient is tolerating Seroquel medication. Plan to increase the nightly dose to 400 mg p.o. We will leave the morning dose as 200 mg p.o. Patient remains with poor insight, although thought process is more organized today. 10/02/2020--patient continues to tolerate Seroquel medication well. We will plan to increase dose to 200 mg p.o. every morning, 300 mg p.o. nightly. Patient's thought process is still somewhat disorganized although improving. 10/01/2020atient is tolerating Seroquel well, will continue with up titration and plan for a 200 mg dose twice daily starting tomorrow. The target for this medication will be not so much the delusions that the patient is experiencing as those are longstanding in nature, but rather the distress she experiences when preoccupied with these delusions. 09/30/20--titrate Seroquel 100 mg am and 200 mg po qhs for ongoing psychosis. Completed paperwork for conversion hearing (outpatient to inpatient). 09/29/20--The patient was admitted to the [facility] ([facility] mental health unit) on q15 min checks (behavioral with suicide precautions) for safety. The patient will participate in group, recreational, and milieu therapies and will be offered additional individual and family sessions as clinically appropriate. It is not clear how consistently she was taking medication so will continue on current doses. Will increase Seroquel as indicated though should also consider COOK. Patient has metabolic labs within the last 3 months. Inventory Assets Strengths: has been accepting of outpatient services, loves her dog Needs: housing Risk Factors Assessment : Yes Do You Have Access To A Gun?: No Mental Health Diagnoses: Yes Substance Use Disorders: No Previous Attempt: Yes Previous Psychiatric Hospitalization: Yes Smoker: Yes Protective Factors Assessment : No Responsible for Young Children: No (but yes for dog) Employed: No Interval History Identifying Information 60 yo female, previous recent admit to for psychosis, was on 304 outpatient commitment. Chief Complaint "I am feeling a little better". Review of Systems Sleep Information Total Hours of Sleep: 6.75 Meal Information Percent Meal Consumed - Breakfast: 100 Percent Meal Consumed - Lunch: 100 Percent Meal Consumed - Dinner: 75 Nutrition Comment: half of meal dated, labeled and refrigerated per pt. request. Subjective Subjective Patient was seen & assessed and interval progress reviewed with treatment team, nursing and social work Patient endorses a good night of sleep. States that she slept approximately 7 hours. She also endorses strong appetite states that she is eating most of her meals. Patient has been in good behavioral control on the unit without any outbursts. Regarding her symptoms, patient states that they are improving. She still occasionally gets the smell of smoke but is not as distressed by it. She does report occasional paranoia but states that this is also improving. Treatment team meeting was held today with the patient to discuss potential disposition options. Patient was able to dissipate meaningfully in the meeting and agreed to send out referrals to [facility]. Her thought process was somewhat disorganized during the meeting but patient's judgment seems to be improving. Physical Exam Psychiatric Orientation: alert, oriented to person and oriented to place Apperance: appropriately groomed and + disheveled Eye Contact: + fair eye contact Motor Behavior: steady gait and station and no abnormal motor movements Speech: normal rate/rhythm/volume of speech Affect: + anxious affect, + labile affect and + constricted affect Mood: + anxious mood; no depressed mood Thought Process: + circumstantial thought process, + tangential thought process, + confabulations and + concrete thought process Thought Content: + paranoid and + delusions Suicidal Thoughts: denies suicidal thoughts Homicidal Thoughts: denies homicidal thoughts Hallucinations: + gustatory hallucinations; no auditory hallucinations and no visual hallucinations Cognition: recent memory grossly intact, remote memory grossly intact, attention grossly intact and language grossly intact Estimated Intelligence: consistent with education level Insight: + poor insight and + impaired insight Judgement: + poor judgement and + impaired judgement Vital Signs (Past 24 Hours) Last Vital Signs Temp 36.8 C 10/04/20 06:00 Pulse 98 H 10/04/20 07:09 Resp 16 10/04/20 06:00 BP 97/63 L 10/04/20 07:09 Pulse Ox 97 09/28/20 17:43 Results & Data ([facility]) Current Inpatient Medications Current Inpatient Medications: Current Inpatient Medications Acetaminophen (Acetaminophen 325 Mg Tab) 650 mg PO Q4H PRN PRN Reason: Headache or Minor Fever Stop: 10/28/20 17:22 Last Admin: 10/01/20 18:10 Dose: 650 mg Documented by: Al Hydrox/Mg Hydrox/Simethicone (Aluminum/Magnesium Susp 30 Ml Udc) 30 ml PO Q4H PRN PRN Reason: GI Upset Stop: 10/28/20 17:22 Albuterol (Albuterol Hfa 8 Gm Inhaler) 2 puffs INH Q4 PRN PRN Reason: wheezing Stop: 10/28/20 17:52 Aspirin (Aspirin 81 Mg Ectab) 81 mg PO QAM [facility] Stop: 10/29/20 08:59 Last Admin: 10/04/20 07:41 Dose: 81 mg Documented by: Bismuth Subsalicylate (Bismuth Subsalicylate Liqd 236 Ml) 15 ml PO PRN PRN PRN Reason: Loose Stool Stop: 10/28/20 17:22 Clonazepam (Clonazepam 0.5 Mg Tab) 0.5 mg PO BID [facility] Stop: 10/28/20 20:59 Last Admin: 10/04/20 07:39 Dose: 0.5 mg Documented by: Docusate Sodium (Docusate Sodium 100 Mg Cap) 100 mg PO BID [facility] Stop: 11/01/20 20:59 Last Admin: 10/04/20 07:39 Dose: 100 mg Documented by: Fish Oil ([place]-3 (Purified Fish Oil) 1 Gm Cap) 1 gm PO QAM [facility] Stop: 10/29/20 08:59 Last Admin: 10/04/20 07:41 Dose: 1 gm Documented by: Fluticasone/Vilanterol (Fluticasone/Vilanterol 200/25mcg 14 Puffs/Inhaler) 1 puffs INH DAILY [facility] Stop: 10/29/20 08:59 Last Admin: 10/04/20 07:41 Dose: Not Given Documented by: Gabapentin (Gabapentin 400 Mg Cap) 400 mg PO TID [facility] Stop: 10/28/20 20:59 Last Admin: 10/04/20 07:38 Dose: 400 mg Documented by: Hydroxyzine HCl (Hydroxyzine Hcl 25 Mg Tab) 50 mg PO HSZ PRN PRN Reason: Insomnia Stop: 10/28/20 17:22 Last Admin: 09/30/20 21:15 Dose: 50 mg Documented by: Hydroxyzine HCl (Hydroxyzine Hcl 25 Mg Tab) 25 mg PO Q4H PRN PRN Reason: Anxiety Stop: 10/28/20 17:22 Last Admin: 10/02/20 18:42 Dose: 25 mg Documented by: Ipratropium [place] (Ipratropium [place] Nasal [place] 0.06% 15ml) 2 sprays ERICH Q12 [facility] Stop: 10/28/20 20:59 Last Admin: 10/04/20 07:42 Dose: Not Given Documented by: Levothyroxine Sodium (Levothyroxine Sodium 88 Mcg Tablet) 88 mcg PO DAILYBB [facility] Stop: 10/29/20 06:29 Last Admin: 10/04/20 07:38 Dose: 88 mcg Documented by: Loratadine (Loratadine 10 Mg Tab) 10 mg PO QAM [facility] Stop: 10/29/20 08:59 Last Admin: 10/04/20 07:39 Dose: 10 mg Documented by: Magnesium Hydroxide (Magnesium Hydroxide Susp 30 Ml Udc) 30 ml PO DAILY PRN PRN Reason: Constipation Stop: 10/28/20 17:22 Metoprolol Tartrate (Metoprolol Tartrate 25 Mg Tab) 12.5 mg PO BID [facility] Stop: 10/28/20 20:59 Last Admin: 10/04/20 07:40 Dose: 12.5 mg Documented by: Nicotine Polacrilex (Nicotine Polacrilex 2 Mg Gum) 1 piece MT PRN PRN PRN Reason: Nicotine Withdrawal Stop: 10/28/20 17:22 Quetiapine Fumarate (Quetiapine Fumarate 200 Mg Tab) 200 mg PO QAM [facility] Stop: 11/02/20 08:59 Last Admin: 10/04/20 07:39 Dose: 200 mg Documented by: Quetiapine Fumarate (Quetiapine Fumarate 200 Mg Tab) 400 mg PO HS [facility] Stop: 11/02/20 21:59 Last Admin: 10/03/20 21:49 Dose: 400 mg Documented by: Simvastatin (Simvastatin 40 Mg Tab) 40 mg PO PM [facility] Stop: 10/28/20 20:59 Last Admin: 10/03/20 21:49 Dose: 40 mg Documented by: Sodium Chloride (Sodium Chloride 0.65% Na Soln 45 Ml ([place])) 1 - 2 sprays NA PRN PRN PRN Reason: Nasal Dryness/Congestion Stop: 10/28/20 17:22 Tramadol HCl (Tramadol Hcl 50 Mg Tablet) 50 mg PO TID PRN PRN Reason: pain Stop: 10/28/20 17:34 Last Admin: 10/03/20 21:47 Dose: 50 mg Documented by: Trazodone HCl (Trazodone Hcl 50 Mg Tab) 100 mg PO HS PRN PRN Reason: Insomnia Stop: 10/28/20 17:56 Last Admin: 10/03/20 21:48 Dose: 100 mg Documented by: Trimethoprim/Sulfamethoxazole (Sulfamethoxazole/Trimethoprim Ds 800/160mg Tab) 1 tab PO Q12 [facility] Stop: 10/05/20 10:00 Last Admin: 10/04/20 07:39 Dose: 1 tab Documented by: Umeclidinium [place] (Umeclidinium [place] 62.5mcg/Blister 7 Puffs/Inhaler) 1 puffs INH DAILY [facility] Stop: 10/29/20 08:59 Last Admin: 10/04/20 07:41 Dose: Not Given Documented by: Vitamin D (Cholecalciferol 1,000 Units 25 Mcg Tab) 2,000 units PO QAM [facility] Stop: 10/29/20 08:59 Last Admin: 10/04/20 07:39 Dose: 2,000 units Documented by: Mental Health & Subst Abuse Tx Psychiatrist Name of Psychiatrist: Velvet Sanchez Psychiatrist's Date of Appointment with Psychiatrist: 10/21/20 Time of Appointment with Psychiatrist: 9:00 a.m. Psychiatric Appointment Comment: [address] [place] [address] Therapist Name of Therapist: . Head Rose Grower Name of Head Rose Grower: [employer] Phone Number for Head Rose Grower: [phone] Date of Appointment with Head Rose Grower: 10/07/20 Post Discharge Appointments Primary Care Physician Name Of Family Doctor: [facility] - Dr. Lancaster (May, PA-C) Primary Care Provider Appointment Comment: [facility] [address] , [place] [address] Specialist Name of Specialist: [facility] Cardiology - Dr. Ga Villareal Phone Number for Specialist: Date of Appointment with Specialist: 10/24/20 Time of Appointment with Specialist: 1:30 p.m. Specialty Appointment Comment: [address], [place] [address] (1) Schizophrenia Schizophrenia type: unspecified Qualified Code(s): F20.9 - Schizophrenia, unspecified
[2020-10-04] MEDS: ACETAMINOPHEN 325 MG TAB PO PRN (19:42)
[2020-10-04] MEDS: SIMVASTATIN 40 MG TAB PO SCH (21:30)
[2020-10-04] MEDS: traZODone HCL 50 MG TAB PO PRN (21:32)
[2020-10-04] MEDS: traMADol HCL 50 MG TABLET PO PRN (21:32)
[2020-10-05] MEDS: ACETAMINOPHEN 325 MG TAB PO PRN (06:54)
[2020-10-05] MEDS: ASPIRIN 81 MG ECTAB PO SCH (08:41)
[2020-10-05] MEDS: LEVOTHYROXINE SODIUM 88 MCG TABLET PO SCH (08:41)
[2020-10-05] MEDS: GABAPENTIN 400 MG CAP PO SCH ×3 (08:42→21:21)
[2020-10-05] MEDS: CHOLECALCIFEROL 1,000 UNITS 25 MCG TAB PO SCH (08:42)
[2020-10-05] MEDS: SULFAMETHOXAZOLE/TRIMETHOPRIM DS 800/160MG TAB PO SCH (08:42)
[2020-10-05] MEDS: OMEGA-3 (PURIFIED FISH OIL) 1 GM CAP PO SCH (08:42)
[2020-10-05] MEDS: clonazePAM 0.5 MG TAB PO SCH ×2 (08:42→21:21)
[2020-10-05] MEDS: QUEtiapine FUMARATE 200 MG TAB PO SCH ×2 (08:42→21:23)
[2020-10-05] MEDS: LORATADINE 10 MG TAB PO SCH (08:42)
[2020-10-05] MEDS: DOCUSATE SODIUM 100 MG CAP PO SCH ×2 (08:42→21:21)
[2020-10-05] MEDS: METOPROLOL TARTRATE 25 MG TAB PO SCH ×2 (08:43→21:22)
[2020-10-05] MEDS: UMECLIDINIUM BROMIDE 62.5MCG/BLISTER 7 PUFFS/INHALER INH SCH (08:50)
[2020-10-05] MEDS: FLUTICASONE/VILANTEROL 200/25MCG 14 PUFFS/INHALER INH SCH (08:50)
[2020-10-05] MEDS: IPRATROPIUM BROMIDE NASAL SPRAY 0.06% 15ML NAE SCH ×2 (08:50→21:25)
--- NOTE | 2020-10-05 09:51 | Psychiatric Progress Note ---
Date of Service October 05, 2020 Impression / Recommendations Impression 60 yo female with history of delusional and disorganized behavior, prior dx of schizophrenia, previous admission here for psychosis, failing outpatient level of care, admit from 304 outpatient commitment. She is currently more organized and cooperative than last presentation but tends to escalate quickly so will continue on MNPR and elopement precautions. Home doses of medication initially continued as compliance was unclear. (1) Schizophrenia: 10/05/2020--patient continues to tolerate Seroquel medication well. Psychotic symptoms seem to be responding to the current dose. We will continue on this dose for now and continue to monitor observe signs and symptoms. 10/04/2020atient continues to tolerate Seroquel medication well. Psychotic symptoms seem to be responding to the current dose. We will continue on this dose for now and continue to monitor observe signs and symptoms. 10/03/2020atient is tolerating Seroquel medication. Plan to increase the nightly dose to 400 mg p.o. We will leave the morning dose as 200 mg p.o. Patient remains with poor insight, although thought process is more organized today. 10/02/2020--patient continues to tolerate Seroquel medication well. We will plan to increase dose to 200 mg p.o. every morning, 300 mg p.o. nightly. Patient's thought process is still somewhat disorganized although improving. 10/01/2020atient is tolerating Seroquel well, will continue with up titration and plan for a 200 mg dose twice daily starting tomorrow. The target for this medication will be not so much the delusions that the patient is experiencing as those are longstanding in nature, but rather the distress she experiences when preoccupied with these delusions. 09/30/20--titrate Seroquel 100 mg am and 200 mg po qhs for ongoing psychosis. Completed paperwork for conversion hearing (outpatient to inpatient). 09/29/20--The patient was admitted to the [facility] on q15 min checks (behavioral with suicide precautions) for safety. The patient will participate in group, recreational, and milieu therapies and will be offered additional individual and family sessions as clinically appropriate. It is not clear how consistently she was taking medication so will continue on current doses. Will increase Seroquel as indicated though should also consider COOK. Patient has metabolic labs within the last 3 months. Inventory Assets Strengths: has been accepting of outpatient services, loves her dog Needs: housing Risk Factors Assessment : Yes Do You Have Access To A Gun?: No Mental Health Diagnoses: Yes Substance Use Disorders: No Previous Attempt: Yes Previous Psychiatric Hospitalization: Yes Smoker: Yes Protective Factors Assessment : No Responsible for Young Children: No (but yes for dog) Employed: No Interval History Identifying Information 60 yo female, previous recent admit to for psychosis, was on 304 outpatient commitment. Chief Complaint "I had a lot of aches and pains today.". Review of Systems Sleep Information Total Hours of Sleep: 6.5 Meal Information Percent Meal Consumed - Breakfast: 100 Percent Meal Consumed - Lunch: 100 Percent Meal Consumed - Dinner: 100 Nutrition Comment: half of meal dated, labeled and refrigerated per pt. request. Subjective Subjective Patient was seen & assessed and interval progress reviewed with treatment team nursing and social work Patient states that she is feeling somewhat better, although continues to complain tangentially about issues not relevant to current topic. Thought process still somewhat pathological but improving patient's report of distress from her hallucinations and paranoia do seem to be improving incrementally. She is denying any side effects of the Seroquel medication increase. No side effects observed. Patient is sleeping and eating well and continues to go to group therapy participate meaningfully. Physical Exam Psychiatric Orientation: alert, oriented to person and oriented to place Apperance: appropriately groomed and + disheveled Eye Contact: + fair eye contact Motor Behavior: steady gait and station and no abnormal motor movements Speech: normal rate/rhythm/volume of speech Affect: + anxious affect, + labile affect and + constricted affect Mood: + anxious mood; no depressed mood Thought Process: + circumstantial thought process, + tangential thought process, + confabulations and + concrete thought process Thought Content: + paranoid and + delusions Suicidal Thoughts: denies suicidal thoughts Homicidal Thoughts: denies homicidal thoughts Hallucinations: + gustatory hallucinations; no auditory hallucinations and no visual hallucinations Cognition: recent memory grossly intact, remote memory grossly intact, attention grossly intact and language grossly intact Estimated Intelligence: consistent with education level Insight: + poor insight and + impaired insight Judgement: + poor judgement and + impaired judgement Vital Signs (Past 24 Hours) Last Vital Signs Temp 36.6 C 10/05/20 06:41 Pulse 90 10/05/20 06:42 Resp 16 10/05/20 06:41 BP 95/61 L 10/05/20 06:42 Pulse Ox 97 09/28/20 17:43 Results & Data ([facility] [place]) Current Inpatient Medications Current Inpatient Medications: Current Inpatient Medications Acetaminophen (Acetaminophen 325 Mg Tab) 650 mg PO Q4H PRN PRN Reason: Headache or Minor Fever Stop: 10/28/20 17:22 Last Admin: 10/05/20 06:54 Dose: 650 mg Documented by: Al Hydrox/Mg Hydrox/Simethicone (Aluminum/Magnesium Susp 30 Ml Udc) 30 ml PO Q4H PRN PRN Reason: GI Upset Stop: 10/28/20 17:22 Albuterol (Albuterol Hfa 8 Gm Inhaler) 2 puffs INH Q4 PRN PRN Reason: wheezing Stop: 10/28/20 17:52 Aspirin (Aspirin 81 Mg Ectab) 81 mg PO QAM [facility] Stop: 10/29/20 08:59 Last Admin: 10/05/20 08:41 Dose: 81 mg Documented by: Bismuth Subsalicylate (Bismuth Subsalicylate Liqd 236 Ml) 15 ml PO PRN PRN PRN Reason: Loose Stool Stop: 10/28/20 17:22 Clonazepam (Clonazepam 0.5 Mg Tab) 0.5 mg PO BID [facility] Stop: 10/28/20 20:59 Last Admin: 10/05/20 08:42 Dose: 0.5 mg Documented by: Docusate Sodium (Docusate Sodium 100 Mg Cap) 100 mg PO BID [facility] Stop: 11/01/20 20:59 Last Admin: 10/05/20 08:42 Dose: 100 mg Documented by: Fish Oil ([place]-3 (Purified Fish Oil) 1 Gm Cap) 1 gm PO QAM [facility] Stop: 10/29/20 08:59 Last Admin: 10/05/20 08:42 Dose: 1 gm Documented by: Fluticasone/Vilanterol (Fluticasone/Vilanterol 200/25mcg 14 Puffs/Inhaler) 1 puffs INH DAILY [facility] Stop: 10/29/20 08:59 Last Admin: 10/05/20 08:50 Dose: Not Given Documented by: Gabapentin (Gabapentin 400 Mg Cap) 400 mg PO TID [facility] Stop: 10/28/20 20:59 Last Admin: 10/05/20 08:42 Dose: 400 mg Documented by: Hydroxyzine HCl (Hydroxyzine Hcl 25 Mg Tab) 50 mg PO HSZ PRN PRN Reason: Insomnia Stop: 10/28/20 17:22 Last Admin: 09/30/20 21:15 Dose: 50 mg Documented by: Hydroxyzine HCl (Hydroxyzine Hcl 25 Mg Tab) 25 mg PO Q4H PRN PRN Reason: Anxiety Stop: 10/28/20 17:22 Last Admin: 10/02/20 18:42 Dose: 25 mg Documented by: Ipratropium [place] (Ipratropium [place] Nasal [place] 0.06% 15ml) 2 sprays ERICH Q12 [facility] Stop: 10/28/20 20:59 Last Admin: 10/05/20 08:50 Dose: Not Given Documented by: Levothyroxine Sodium (Levothyroxine Sodium 88 Mcg Tablet) 88 mcg PO DAILYBB [facility] Stop: 10/29/20 06:29 Last Admin: 10/05/20 08:41 Dose: 88 mcg Documented by: Loratadine (Loratadine 10 Mg Tab) 10 mg PO QAM [facility] Stop: 10/29/20 08:59 Last Admin: 10/05/20 08:42 Dose: 10 mg Documented by: Magnesium Hydroxide (Magnesium Hydroxide Susp 30 Ml Udc) 30 ml PO DAILY PRN PRN Reason: Constipation Stop: 10/28/20 17:22 Metoprolol Tartrate (Metoprolol Tartrate 25 Mg Tab) 12.5 mg PO BID [facility] Stop: 10/28/20 20:59 Last Admin: 10/05/20 08:43 Dose: Not Given Documented by: Nicotine Polacrilex (Nicotine Polacrilex 2 Mg Gum) 1 piece MT PRN PRN PRN Reason: Nicotine Withdrawal Stop: 10/28/20 17:22 Quetiapine Fumarate (Quetiapine Fumarate 200 Mg Tab) 200 mg PO QAM [facility] Stop: 11/02/20 08:59 Last Admin: 10/05/20 08:42 Dose: 200 mg Documented by: Quetiapine Fumarate (Quetiapine Fumarate 200 Mg Tab) 400 mg PO HS [facility] Stop: 11/02/20 21:59 Last Admin: 05/07/21 21:31 Dose: 400 mg Documented by: Simvastatin (Simvastatin 40 Mg Tab) 40 mg PO PM [facility] Stop: 10/28/20 20:59 Last Admin: 10/04/20 21:30 Dose: 40 mg Documented by: Sodium Chloride (Sodium Chloride 0.65% Na Soln 45 Ml ([place])) 1 - 2 sprays NA PRN PRN PRN Reason: Nasal Dryness/Congestion Stop: 10/28/20 17:22 Tramadol HCl (Tramadol Hcl 50 Mg Tablet) 50 mg PO TID PRN PRN Reason: pain Stop: 10/28/20 17:34 Last Admin: 10/04/20 21:32 Dose: 50 mg Documented by: Trazodone HCl (Trazodone Hcl 50 Mg Tab) 100 mg PO HS PRN PRN Reason: Insomnia Stop: 10/28/20 17:56 Last Admin: 10/04/20 21:32 Dose: 100 mg Documented by: Trimethoprim/Sulfamethoxazole (Sulfamethoxazole/Trimethoprim Ds 800/160mg Tab) 1 tab PO Q12 [facility] Stop: 10/05/20 10:00 Last Admin: 10/05/20 08:42 Dose: 1 tab Documented by: Umeclidinium [place] (Umeclidinium [place] 62.5mcg/Blister 7 Puffs/Inhaler) 1 puffs INH DAILY [facility] Stop: 10/29/20 08:59 Last Admin: 10/05/20 08:50 Dose: Not Given Documented by: Vitamin D (Cholecalciferol 1,000 Units 25 Mcg Tab) 2,000 units PO QAM [facility] Stop: 10/29/20 08:59 Last Admin: 10/05/20 08:42 Dose: 2,000 units Documented by: Mental Health & Subst Abuse Tx Psychiatrist Name of Psychiatrist: Velvet Sanchez Psychiatrist's Date of Appointment with Psychiatrist: 10/21/20 Time of Appointment with Psychiatrist: 9:00 a.m. Psychiatric Appointment Comment: [address] [place] [address] Therapist Name of Therapist: . Burial Agent Name of Burial Agent: [employer] Phone Number for Burial Agent: [phone] Date of Appointment with Burial Agent: 10/07/20 Post Discharge Appointments Primary Care Physician Name Of Family Doctor: MAN Lancaster (May PAUrvashiC) Primary Care Provider Appointment Comment: [address] [place] [address], [place] [address] Specialist Name of Specialist: MAN Cardiology - Dr. Ga Villareal Phone Number for Specialist: Date of Appointment with Specialist: 10/24/20 Time of Appointment with Specialist: 1:30 p.m. Specialty Appointment Comment: [address], [place] [address] (1) Schizophrenia Schizophrenia type: unspecified Qualified Code(s): F20.9 - Schizophrenia, unspecified
[2020-10-05] MEDS: traMADol HCL 50 MG TABLET PO PRN (12:41)
[2020-10-05] MEDS: SIMVASTATIN 40 MG TAB PO SCH (21:23)
[2020-10-06] MEDS: LEVOTHYROXINE SODIUM 88 MCG TABLET PO SCH (08:48)
[2020-10-06] MEDS: CHOLECALCIFEROL 1,000 UNITS 25 MCG TAB PO SCH (08:59)
[2020-10-06] MEDS: DOCUSATE SODIUM 100 MG CAP PO SCH ×2 (08:59→21:39)
[2020-10-06] MEDS: OMEGA-3 (PURIFIED FISH OIL) 1 GM CAP PO SCH (08:59)
[2020-10-06] MEDS: clonazePAM 0.5 MG TAB PO SCH ×2 (08:59→21:39)
[2020-10-06] MEDS: ASPIRIN 81 MG ECTAB PO SCH (08:59)
[2020-10-06] MEDS: GABAPENTIN 400 MG CAP PO SCH ×3 (09:00→21:39)
[2020-10-06] MEDS: LORATADINE 10 MG TAB PO SCH (09:00)
[2020-10-06] MEDS: METOPROLOL TARTRATE 25 MG TAB PO SCH ×2 (09:01→21:39)
[2020-10-06] MEDS: QUEtiapine FUMARATE 200 MG TAB PO SCH ×2 (09:01→21:39)
[2020-10-06] MEDS: traMADol HCL 50 MG TABLET PO PRN (09:02)
[2020-10-06] MEDS: FLUTICASONE/VILANTEROL 200/25MCG 14 PUFFS/INHALER INH SCH (09:08)
[2020-10-06] MEDS: UMECLIDINIUM BROMIDE 62.5MCG/BLISTER 7 PUFFS/INHALER INH SCH (09:08)
[2020-10-06] MEDS: IPRATROPIUM BROMIDE NASAL SPRAY 0.06% 15ML NAE SCH ×2 (09:08→21:39)
[2020-10-06] MEDS: ACETAMINOPHEN 325 MG TAB PO PRN ×2 (12:55→18:34)
--- NOTE | 2020-10-06 15:00 | Psychiatric Progress Note ---
Date of Service October 06, 2020 Impression / Recommendations Impression 60 yo female with history of delusional and disorganized behavior, prior dx of schizophrenia, previous admission here for psychosis, failing outpatient level of care, admit from 304 outpatient commitment. She is currently more organized and cooperative than last presentation but tends to escalate quickly so will continue on MNPR and elopement precautions. Home doses of medication initially continued as compliance was unclear. (1) Schizophrenia: 10/06/2020--patient continues to tolerate Seroquel medication well. Psychotic symptoms seem to be responding to the current dose. We will continue on this dose for now and continue to monitor observe signs and symptoms. 10/04/2020atient continues to tolerate Seroquel medication well. Psychotic symptoms seem to be responding to the current dose. We will continue on this dose for now and continue to monitor observe signs and symptoms. 10/03/2020atient is tolerating Seroquel medication. Plan to increase the nightly dose to 400 mg p.o. We will leave the morning dose as 200 mg p.o. Patient remains with poor insight, although thought process is more organized today. 10/02/2020--patient continues to tolerate Seroquel medication well. We will plan to increase dose to 200 mg p.o. every morning, 300 mg p.o. nightly. Patient's thought process is still somewhat disorganized although improving. 10/01/2020atient is tolerating Seroquel well, will continue with up titration and plan for a 200 mg dose twice daily starting tomorrow. The target for this medication will be not so much the delusions that the patient is experiencing as those are longstanding in nature, but rather the distress she experiences when preoccupied with these delusions. 09/30/20--titrate Seroquel 100 mg am and 200 mg po qhs for ongoing psychosis. Completed paperwork for conversion hearing (outpatient to inpatient). 09/29/20--The patient was admitted to the [facility]) on q15 min checks (behavioral with suicide precautions) for safety. The patient will participate in group, recreational, and milieu therapies and will be offered additional individual and family sessions as clinically appropriate. It is not clear how consistently she was taking medication so will continue on current doses. Will increase Seroquel as indicated though should also consider COOK. Patient has metabolic labs within the last 3 months. Inventory Assets Strengths: has been accepting of outpatient services, loves her dog Needs: housing Risk Factors Assessment : Yes Do You Have Access To A Gun?: No Mental Health Diagnoses: Yes Substance Use Disorders: No Previous Attempt: Yes Previous Psychiatric Hospitalization: Yes Smoker: Yes Protective Factors Assessment : No Responsible for Young Children: No (but yes for dog) Employed: No Interval History Identifying Information 60 yo female, previous recent admit to for psychosis, was on 304 outpatient commitment. Chief Complaint "I am okay". Review of Systems Sleep Information Total Hours of Sleep: 6.5 Meal Information Percent Meal Consumed - Breakfast: 100 Percent Meal Consumed - Lunch: 100 Percent Meal Consumed - Dinner: 100 Nutrition Comment: half of meal dated, labeled and refrigerated per pt. request. Subjective Subjective Patient was seen & assessed and interval progress reviewed with treatment team nursing and social work Patient seen eating and sleeping well. Participates in groups appropriately. Seen engaging appropriately with peers. Patient states that paranoia and hallucinations have lessened. She denies any distressing delusions at this point. She is still somewhat tangential in her thought process but this also seems to be improving. Patient continues to be cooperative as we seek out safe discharge placement. Physical Exam Psychiatric Orientation: alert, oriented to person and oriented to place Apperance: appropriately groomed and + disheveled Eye Contact: + fair eye contact Motor Behavior: steady gait and station and no abnormal motor movements Speech: normal rate/rhythm/volume of speech Affect: + anxious affect, + labile affect and + constricted affect Mood: + anxious mood; no depressed mood Thought Process: + circumstantial thought process, + tangential thought process, + confabulations and + concrete thought process Thought Content: + paranoid and + delusions Suicidal Thoughts: denies suicidal thoughts Homicidal Thoughts: denies homicidal thoughts Hallucinations: + gustatory hallucinations; no auditory hallucinations and no visual hallucinations Cognition: recent memory grossly intact, remote memory grossly intact, attention grossly intact and language grossly intact Estimated Intelligence: consistent with education level Insight: + poor insight and + impaired insight Judgement: + poor judgement and + impaired judgement Vital Signs (Past 24 Hours) Last Vital Signs Temp 36.7 C 10/06/20 06:37 Pulse 124 H 10/06/20 13:22 Resp 16 10/06/20 06:37 BP 92/66 L 10/06/20 13:22 Pulse Ox 97 09/28/20 17:43 Results & Data ([facility]) Current Inpatient Medications Current Inpatient Medications: Current Inpatient Medications Acetaminophen (Acetaminophen 325 Mg Tab) 650 mg PO Q4H PRN PRN Reason: Headache or Minor Fever Stop: 10/28/20 17:22 Last Admin: 10/06/20 12:55 Dose: 650 mg Documented by: Al Hydrox/Mg Hydrox/Simethicone (Aluminum/Magnesium Susp 30 Ml Udc) 30 ml PO Q4H PRN PRN Reason: GI Upset Stop: 10/28/20 17:22 Albuterol (Albuterol Hfa 8 Gm Inhaler) 2 puffs INH Q4 PRN PRN Reason: wheezing Stop: 10/28/20 17:52 Aspirin (Aspirin 81 Mg Ectab) 81 mg PO QAM [facility] Stop: 10/29/20 08:59 Last Admin: 10/06/20 08:59 Dose: 81 mg Documented by: Bismuth Subsalicylate (Bismuth Subsalicylate Liqd 236 Ml) 15 ml PO PRN PRN PRN Reason: Loose Stool Stop: 10/28/20 17:22 Clonazepam (Clonazepam 0.5 Mg Tab) 0.5 mg PO BID [facility] Stop: 10/28/20 20:59 Last Admin: 10/06/20 08:59 Dose: 0.5 mg Documented by: Docusate Sodium (Docusate Sodium 100 Mg Cap) 100 mg PO BID [facility] Stop: 11/01/20 20:59 Last Admin: 10/06/20 08:59 Dose: 100 mg Documented by: Fish Oil ([place]-3 (Purified Fish Oil) 1 Gm Cap) 1 gm PO QAM [facility] Stop: 10/29/20 08:59 Last Admin: 10/06/20 08:59 Dose: 1 gm Documented by: Fluticasone/Vilanterol (Fluticasone/Vilanterol 200/25mcg 14 Puffs/Inhaler) 1 puffs INH DAILY [facility] Stop: 10/29/20 08:59 Last Admin: 10/06/20 09:08 Dose: Not Given Documented by: Gabapentin (Gabapentin 400 Mg Cap) 400 mg PO TID [facility] Stop: 10/28/20 20:59 Last Admin: 10/06/20 14:42 Dose: 400 mg Documented by: Hydroxyzine HCl (Hydroxyzine Hcl 25 Mg Tab) 50 mg PO HSZ PRN PRN Reason: Insomnia Stop: 10/28/20 17:22 Last Admin: 09/30/20 21:15 Dose: 50 mg Documented by: Hydroxyzine HCl (Hydroxyzine Hcl 25 Mg Tab) 25 mg PO Q4H PRN PRN Reason: Anxiety Stop: 10/28/20 17:22 Last Admin: 10/02/20 18:42 Dose: 25 mg Documented by: Ipratropium [place] (Ipratropium [place] Nasal [place] 0.06% 15ml) 2 sprays ERICH Q12 [facility] Stop: 10/28/20 20:59 Last Admin: 10/06/20 09:08 Dose: Not Given Documented by: Levothyroxine Sodium (Levothyroxine Sodium 88 Mcg Tablet) 88 mcg PO DAILYBB [facility] Stop: 10/29/20 06:29 Last Admin: 10/06/20 08:48 Dose: 88 mcg Documented by: Loratadine (Loratadine 10 Mg Tab) 10 mg PO QAM [facility] Stop: 10/29/20 08:59 Last Admin: 10/06/20 09:00 Dose: 10 mg Documented by: Magnesium Hydroxide (Magnesium Hydroxide Susp 30 Ml Udc) 30 ml PO DAILY PRN PRN Reason: Constipation Stop: 10/28/20 17:22 Metoprolol Tartrate (Metoprolol Tartrate 25 Mg Tab) 12.5 mg PO BID [facility] Stop: 10/28/20 20:59 Last Admin: 10/06/20 09:01 Dose: 12.5 mg Documented by: Nicotine Polacrilex (Nicotine Polacrilex 2 Mg Gum) 1 piece MT PRN PRN PRN Reason: Nicotine Withdrawal Stop: 10/28/20 17:22 Quetiapine Fumarate (Quetiapine Fumarate 200 Mg Tab) 200 mg PO QAM [facility] Stop: 11/02/20 08:59 Last Admin: 10/06/20 09:01 Dose: 200 mg Documented by: Quetiapine Fumarate (Quetiapine Fumarate 200 Mg Tab) 400 mg PO HS [facility] Stop: 11/02/20 21:59 Last Admin: 10/05/20 21:23 Dose: 400 mg Documented by: Simvastatin (Simvastatin 40 Mg Tab) 40 mg PO PM [facility] Stop: 10/28/20 20:59 Last Admin: 10/05/20 21:23 Dose: 40 mg Documented by: Sodium Chloride (Sodium Chloride 0.65% Na Soln 45 Ml ([place])) 1 - 2 sprays NA PRN PRN PRN Reason: Nasal Dryness/Congestion Stop: 10/28/20 17:22 Tramadol HCl (Tramadol Hcl 50 Mg Tablet) 50 mg PO TID PRN PRN Reason: pain Stop: 10/28/20 17:34 Last Admin: 10/06/20 09:02 Dose: 50 mg Documented by: Trazodone HCl (Trazodone Hcl 50 Mg Tab) 100 mg PO HS PRN PRN Reason: Insomnia Stop: 10/28/20 17:56 Last Admin: 10/04/20 21:32 Dose: 100 mg Documented by: Umeclidinium [place] (Umeclidinium [place] 62.5mcg/Blister 7 Puffs/Inhaler) 1 puffs INH DAILY [facility] Stop: 10/29/20 08:59 Last Admin: 10/06/20 09:08 Dose: Not Given Documented by: Vitamin D (Cholecalciferol 1,000 Units 25 Mcg Tab) 2,000 units PO QAM [facility] Stop: 10/29/20 08:59 Last Admin: 10/06/20 08:59 Dose: 2,000 units Documented by: Mental Health & Subst Abuse Tx Psychiatrist Name of Psychiatrist: Velvet Sanchez Psychiatrist's Date of Appointment with Psychiatrist: 10/21/20 Time of Appointment with Psychiatrist: 9:00 a.m. Psychiatric Appointment Comment: [address] [place] [address] [place] [address] Therapist Name of Therapist: . Wirer Name of Wirer: [employer] Phone Number for Wirer: [phone] Date of Appointment with Wirer: 10/07/20 Post Discharge Appointments Primary Care Physician Name Of Family Doctor: MAN Lancaster (May PAUrvashiC) Primary Care Provider Appointment Comment: [address] [place] [address] [place] [address] Specialist Name of Specialist: MAN Cardiology - Dr. Ga Villareal Phone Number for Specialist: Date of Appointment with Specialist: 10/24/20 Time of Appointment with Specialist: 1:30 p.m. Specialty Appointment Comment: [address], [place] [address] (1) Schizophrenia Schizophrenia type: unspecified Qualified Code(s): F20.9 - Schizophrenia, unspecified
[2020-10-06] MEDS ORDERED: SEPTRA DS HOME PACK 1 EA VIAL PO ONE (16:45)
[2020-10-06] MEDS ORDERED: SULFAMETHOXAZOLE/TRIMETHOPRIM DS 800/160MG TAB PO SCH (21:00)
[2020-10-06] MEDS: SIMVASTATIN 40 MG TAB PO SCH (21:40)
[2020-10-07] MEDS: LEVOTHYROXINE SODIUM 88 MCG TABLET PO SCH (08:26)
[2020-10-07] MEDS: ASPIRIN 81 MG ECTAB PO SCH (08:37)
[2020-10-07] MEDS: CHOLECALCIFEROL 1,000 UNITS 25 MCG TAB PO SCH (08:37)
[2020-10-07] MEDS: IPRATROPIUM BROMIDE NASAL SPRAY 0.06% 15ML NAE SCH ×2 (08:38→20:56)
[2020-10-07] MEDS: GABAPENTIN 400 MG CAP PO SCH ×3 (08:38→20:50)
[2020-10-07] MEDS: OMEGA-3 (PURIFIED FISH OIL) 1 GM CAP PO SCH (08:38)
[2020-10-07] MEDS: DOCUSATE SODIUM 100 MG CAP PO SCH ×2 (08:38→20:50)
[2020-10-07] MEDS: clonazePAM 0.5 MG TAB PO SCH ×2 (08:38→20:50)
[2020-10-07] MEDS: LORATADINE 10 MG TAB PO SCH (08:38)
[2020-10-07] MEDS: QUEtiapine FUMARATE 200 MG TAB PO SCH ×2 (08:38→20:52)
[2020-10-07] MEDS: FLUTICASONE/VILANTEROL 200/25MCG 14 PUFFS/INHALER INH SCH (08:38)
[2020-10-07] MEDS: METOPROLOL TARTRATE 25 MG TAB PO SCH ×2 (08:39→20:51)
[2020-10-07] MEDS: UMECLIDINIUM BROMIDE 62.5MCG/BLISTER 7 PUFFS/INHALER INH SCH (08:45)
--- NOTE | 2020-10-07 15:51 | Psychiatric Progress Note ---
Date of Service October 07, 2020 Impression / Recommendations Impression 60 yo female with history of delusional and disorganized behavior, prior dx of schizophrenia, previous admission here for psychosis, failing outpatient level of care, admit from 304 outpatient commitment. She is currently more organized and cooperative than last presentation but tends to escalate quickly so will continue on MNPR and elopement precautions. Home doses of medication initially continued as compliance was unclear. (1) Schizophrenia: 10/06/2020--patient continues to tolerate Seroquel medication well. Psychotic symptoms seem to be responding to the current dose. We will continue on this dose for now and continue to monitor observe signs and symptoms. 10/04/2020atient continues to tolerate Seroquel medication well. Psychotic symptoms seem to be responding to the current dose. We will continue on this dose for now and continue to monitor observe signs and symptoms. 10/03/2020atient is tolerating Seroquel medication. Plan to increase the nightly dose to 400 mg p.o. We will leave the morning dose as 200 mg p.o. Patient remains with poor insight, although thought process is more organized today. 10/02/2020--patient continues to tolerate Seroquel medication well. We will plan to increase dose to 200 mg p.o. every morning, 300 mg p.o. nightly. Patient's thought process is still somewhat disorganized although improving. 10/01/2020atient is tolerating Seroquel well, will continue with up titration and plan for a 200 mg dose twice daily starting tomorrow. The target for this medication will be not so much the delusions that the patient is experiencing as those are longstanding in nature, but rather the distress she experiences when preoccupied with these delusions. 09/30/20--titrate Seroquel 100 mg am and 200 mg po qhs for ongoing psychosis. Completed paperwork for conversion hearing (outpatient to inpatient). 09/29/20--The patient was admitted to the [facility] ([facility] inpatient mental health unit) on q15 min checks (behavioral with suicide precautions) for safety. The patient will participate in group, recreational, and milieu therapies and will be offered additional individual and family sessions as clinically appropriate. It is not clear how consistently she was taking medication so will continue on current doses. Will increase Seroquel as indicated though should also consider COOK. Patient has metabolic labs within the last 3 months. Inventory Assets Strengths: has been accepting of outpatient services, loves her dog Needs: housing Risk Factors Assessment : Yes Do You Have Access To A Gun?: No Mental Health Diagnoses: Yes Substance Use Disorders: No Previous Attempt: Yes Previous Psychiatric Hospitalization: Yes Smoker: Yes Protective Factors Assessment : No Responsible for Young Children: No (but yes for dog) Employed: No Interval History Identifying Information 60 yo female, previous recent admit to for psychosis, was on 304 outpatient commitment. Chief Complaint "I am okay but my fibromyalgy is acting up". Review of Systems Sleep Information Total Hours of Sleep: 6.5 Meal Information Percent Meal Consumed - Breakfast: 100 Percent Meal Consumed - Lunch: 100 Percent Meal Consumed - Dinner: 100 Nutrition Comment: half of meal dated, labeled and refrigerated per pt. request. Subjective Subjective Patient was seen & assessed and interval progress reviewed with treatment team nursing and social work Patient reports a good night of sleep. Denies issues with sleep or appetite. Patient's thoughts are more organized. She is not displaying any overt psychotic symptoms at this time. She does still exhibit some hoarding behavior as well as some tangentiality to her thought process, this is believed to be at least close to baseline at this time. Patient still awaiting safe discharge planning. Physical Exam Psychiatric Orientation: alert, oriented to person and oriented to place Apperance: appropriately groomed and + disheveled Eye Contact: + fair eye contact Motor Behavior: steady gait and station and no abnormal motor movements Speech: normal rate/rhythm/volume of speech Affect: + anxious affect, + labile affect and + constricted affect Mood: + anxious mood; no depressed mood Thought Process: + circumstantial thought process, + tangential thought process, + confabulations and + concrete thought process Thought Content: + paranoid and + delusions Suicidal Thoughts: denies suicidal thoughts Homicidal Thoughts: denies homicidal thoughts Hallucinations: + gustatory hallucinations; no auditory hallucinations and no visual hallucinations Cognition: recent memory grossly intact, remote memory grossly intact, attention grossly intact and language grossly intact Estimated Intelligence: consistent with education level Insight: + poor insight and + impaired insight Judgement: + poor judgement and + impaired judgement Vital Signs (Past 24 Hours) Last Vital Signs Temp 36.3 C L 10/07/20 08:00 Pulse 142 H 10/07/20 09:02 Resp 18 10/07/20 09:02 BP 111/66 10/07/20 09:02 Pulse Ox 98 10/07/20 09:02 Results & Data ([facility]) Current Inpatient Medications Current Inpatient Medications: Current Inpatient Medications Acetaminophen (Acetaminophen 325 Mg Tab) 650 mg PO Q4H PRN PRN Reason: Headache or Minor Fever Stop: 10/28/20 17:22 Last Admin: 10/06/20 18:34 Dose: 650 mg Documented by: Al Hydrox/Mg Hydrox/Simethicone (Aluminum/Magnesium Susp 30 Ml Udc) 30 ml PO Q4H PRN PRN Reason: GI Upset Stop: 10/28/20 17:22 Albuterol (Albuterol Hfa 8 Gm Inhaler) 2 puffs INH Q4 PRN PRN Reason: wheezing Stop: 10/28/20 17:52 Aspirin (Aspirin 81 Mg Ectab) 81 mg PO QAM [facility] Stop: 10/29/20 08:59 Last Admin: 10/07/20 08:37 Dose: 81 mg Documented by: Bismuth Subsalicylate (Bismuth Subsalicylate Liqd 236 Ml) 15 ml PO PRN PRN PRN Reason: Loose Stool Stop: 10/28/20 17:22 Clonazepam (Clonazepam 0.5 Mg Tab) 0.5 mg PO BID [facility] Stop: 10/28/20 20:59 Last Admin: 10/07/20 08:38 Dose: 0.5 mg Documented by: Docusate Sodium (Docusate Sodium 100 Mg Cap) 100 mg PO BID [facility] Stop: 11/01/20 20:59 Last Admin: 10/07/20 08:38 Dose: 100 mg Documented by: Fish Oil ([place]-3 (Purified Fish Oil) 1 Gm Cap) 1 gm PO QAM [facility] Stop: 10/29/20 08:59 Last Admin: 10/07/20 08:38 Dose: 1 gm Documented by: Fluticasone/Vilanterol (Fluticasone/Vilanterol 200/25mcg 14 Puffs/Inhaler) 1 puffs INH DAILY [facility] Stop: 10/29/20 08:59 Last Admin: 10/07/20 08:38 Dose: Not Given Documented by: Gabapentin (Gabapentin 400 Mg Cap) 400 mg PO TID [facility] Stop: 10/28/20 20:59 Last Admin: 10/07/20 13:29 Dose: 400 mg Documented by: Hydroxyzine HCl (Hydroxyzine Hcl 25 Mg Tab) 50 mg PO HSZ PRN PRN Reason: Insomnia Stop: 10/28/20 17:22 Last Admin: 09/30/20 21:15 Dose: 50 mg Documented by: Hydroxyzine HCl (Hydroxyzine Hcl 25 Mg Tab) 25 mg PO Q4H PRN PRN Reason: Anxiety Stop: 10/28/20 17:22 Last Admin: 10/02/20 18:42 Dose: 25 mg Documented by: Ipratropium [place] (Ipratropium [place] Nasal [place] 0.06% 15ml) 2 sprays ERICH Q12 [facility] Stop: 10/28/20 20:59 Last Admin: 10/07/20 08:38 Dose: Not Given Documented by: Levothyroxine Sodium (Levothyroxine Sodium 88 Mcg Tablet) 88 mcg PO DAILYBB [facility] Stop: 10/29/20 06:29 Last Admin: 10/07/20 08:26 Dose: 88 mcg Documented by: Loratadine (Loratadine 10 Mg Tab) 10 mg PO QAM [facility] Stop: 10/29/20 08:59 Last Admin: 10/07/20 08:38 Dose: 10 mg Documented by: Magnesium Hydroxide (Magnesium Hydroxide Susp 30 Ml Udc) 30 ml PO DAILY PRN PRN Reason: Constipation Stop: 10/28/20 17:22 Metoprolol Tartrate (Metoprolol Tartrate 25 Mg Tab) 12.5 mg PO BID [facility] Stop: 10/28/20 20:59 Last Admin: 10/07/20 08:39 Dose: 12.5 mg Documented by: Nicotine Polacrilex (Nicotine Polacrilex 2 Mg Gum) 1 piece MT PRN PRN PRN Reason: Nicotine Withdrawal Stop: 10/28/20 17:22 Quetiapine Fumarate (Quetiapine Fumarate 200 Mg Tab) 200 mg PO QAM [facility] Stop: 11/02/20 08:59 Last Admin: 10/07/20 08:38 Dose: 200 mg Documented by: Quetiapine Fumarate (Quetiapine Fumarate 200 Mg Tab) 400 mg PO HS [facility] Stop: 11/02/20 21:59 Last Admin: 10/06/20 21:39 Dose: 400 mg Documented by: Simvastatin (Simvastatin 40 Mg Tab) 40 mg PO PM [facility] Stop: 10/28/20 20:59 Last Admin: 10/06/20 21:40 Dose: 40 mg Documented by: Sodium Chloride (Sodium Chloride 0.65% Na Soln 45 Ml ([place])) 1 - 2 sprays NA PRN PRN PRN Reason: Nasal Dryness/Congestion Stop: 10/28/20 17:22 Tramadol HCl (Tramadol Hcl 50 Mg Tablet) 50 mg PO TID PRN PRN Reason: pain Stop: 10/28/20 17:34 Last Admin: 10/06/20 09:02 Dose: 50 mg Documented by: Trazodone HCl (Trazodone Hcl 50 Mg Tab) 100 mg PO HS PRN PRN Reason: Insomnia Stop: 10/28/20 17:56 Last Admin: 10/04/20 21:32 Dose: 100 mg Documented by: Umeclidinium [place] (Umeclidinium [place] 62.5mcg/Blister 7 Puffs/Inhaler) 1 puffs INH DAILY [facility] Stop: 10/29/20 08:59 Last Admin: 10/07/20 08:45 Dose: Not Given Documented by: Vitamin D (Cholecalciferol 1,000 Units 25 Mcg Tab) 2,000 units PO QAM [facility] Stop: 10/29/20 08:59 Last Admin: 10/07/20 08:37 Dose: 2,000 units Documented by: Mental Health & Subst Abuse Tx Psychiatrist Name of Psychiatrist: Velvet Sanchez Psychiatrist's Date of Appointment with Psychiatrist: 10/21/20 Time of Appointment with Psychiatrist: 9:00 a.m. Psychiatric Appointment Comment: [address] [place] [id number] Therapist Name of Therapist: . Cigarette Examiner Name of Cigarette Examiner: [facility] Phone Number for Cigarette Examiner: [phone] Date of Appointment with Cigarette Examiner: 10/07/20 Post Discharge Appointments Primary Care Physician Name Of Family Doctor: MAN Lancaster (JADEN Olvera) Primary Care Provider Appointment Comment: [address] [place] [address] [place] [address] Specialist Name of Specialist: MAN Cardiology - Dr. Ga Villareal Phone Number for Specialist: Date of Appointment with Specialist: 10/24/20 Time of Appointment with Specialist: 1:30 p.m. Specialty Appointment Comment: [address], [place] [address] Contact Information Discharge (1) Schizophrenia Schizophrenia type: unspecified Qualified Code(s): F20.9 - Schizophrenia, unspecified
[2020-10-07] MEDS: SIMVASTATIN 40 MG TAB PO SCH (20:52)
[2020-10-08] MEDS: METOPROLOL TARTRATE 25 MG TAB PO SCH ×2 (06:49→21:03)
[2020-10-08] MEDS: ASPIRIN 81 MG ECTAB PO SCH (07:57)
[2020-10-08] MEDS: CHOLECALCIFEROL 1,000 UNITS 25 MCG TAB PO SCH (07:57)
[2020-10-08] MEDS: LEVOTHYROXINE SODIUM 88 MCG TABLET PO SCH (07:57)
[2020-10-08] MEDS: clonazePAM 0.5 MG TAB PO SCH ×2 (07:58→21:03)
[2020-10-08] MEDS: DOCUSATE SODIUM 100 MG CAP PO SCH ×2 (07:58→21:03)
[2020-10-08] MEDS: GABAPENTIN 400 MG CAP PO SCH ×3 (07:59→21:04)
[2020-10-08] MEDS: OMEGA-3 (PURIFIED FISH OIL) 1 GM CAP PO SCH (07:59)
[2020-10-08] MEDS: QUEtiapine FUMARATE 200 MG TAB PO SCH ×2 (08:00→21:05)
[2020-10-08] MEDS: UMECLIDINIUM BROMIDE 62.5MCG/BLISTER 7 PUFFS/INHALER INH SCH (08:00)
[2020-10-08] MEDS: LORATADINE 10 MG TAB PO SCH (08:00)
[2020-10-08] MEDS: IPRATROPIUM BROMIDE NASAL SPRAY 0.06% 15ML NAE SCH ×2 (08:01→21:04)
[2020-10-08] MEDS: FLUTICASONE/VILANTEROL 200/25MCG 14 PUFFS/INHALER INH SCH (08:01)
[2020-10-08] MEDS: ACETAMINOPHEN 325 MG TAB PO PRN (13:32)
--- NOTE | 2020-10-08 15:17 | Psychiatric Progress Note ---
Date of Service October 08, 2020 Impression / Recommendations Impression 60 yo female with history of delusional and disorganized behavior, prior dx of schizophrenia, previous admission here for psychosis, failing outpatient level of care, admit from 304 outpatient commitment. She is currently more organized and cooperative than last presentation but tends to escalate quickly so will continue on MNPR and elopement precautions. Home doses of medication initially continued as compliance was unclear. (1) Schizophrenia: 10/08/2020atient continues to tolerate medication regimen well. She is eating and sleeping without issue. Patient is without any overt psychotic symptoms at this time 10/06/2020--patient continues to tolerate Seroquel medication well. Psychotic symptoms seem to be responding to the current dose. We will continue on this dose for now and continue to monitor observe signs and symptoms. 10/04/2020atient continues to tolerate Seroquel medication well. Psychotic symptoms seem to be responding to the current dose. We will continue on this dose for now and continue to monitor observe signs and symptoms. 10/03/2020atient is tolerating Seroquel medication. Plan to increase the nightly dose to 400 mg p.o. We will leave the morning dose as 200 mg p.o. Patient remains with poor insight, although thought process is more organized today. 10/02/2020--patient continues to tolerate Seroquel medication well. We will plan to increase dose to 200 mg p.o. every morning, 300 mg p.o. nightly. Patient's thought process is still somewhat disorganized although improving. 10/01/2020atient is tolerating Seroquel well, will continue with up titration and plan for a 200 mg dose twice daily starting tomorrow. The target for this medication will be not so much the delusions that the patient is experiencing as those are longstanding in nature, but rather the distress she experiences when preoccupied with these delusions. 09/30/20--titrate Seroquel 100 mg am and 200 mg po qhs for ongoing psychosis. Completed paperwork for conversion hearing (outpatient to inpatient). 09/29/20--The patient was admitted to the [facility] ([facility] mental health unit) on q15 min checks (behavioral with suicide precautions) for safety. The patient will participate in group, recreational, and milieu therapies and will be offered additional individual and family sessions as clinically appropriate. It is not clear how consistently she was taking medication so will continue on current doses. Will increase Seroquel as indicated though should also consider COOK. Patient has metabolic labs within the last 3 months. Inventory Assets Strengths: has been accepting of outpatient services, loves her dog Needs: housing Risk Factors Assessment : Yes Do You Have Access To A Gun?: No Mental Health Diagnoses: Yes Substance Use Disorders: No Previous Attempt: Yes Previous Psychiatric Hospitalization: Yes Smoker: Yes Protective Factors Assessment : No Responsible for Young Children: No (but yes for dog) Employed: No Interval History Identifying Information 60 yo female, previous recent admit to for psychosis, was on 304 outpatient commitment. Chief Complaint I am doing okay I am going to order some prune juice Review of Systems Sleep Information Total Hours of Sleep: 6 Meal Information Percent Meal Consumed - Breakfast: 100 Percent Meal Consumed - Lunch: 75 Percent Meal Consumed - Dinner: 90 Nutrition Comment: half of meal dated, labeled and refrigerated per pt. request. Subjective Subjective Patient was seen & assessed and interval progress reviewed with treatment team nursing and social work Patient reports feeling okay on the current regimen. She denies any adverse effects. She is seem to be interacting appropriately with peers and attending groups. No psychiatric complaints at this time. We are still awaiting safe safe discharge planning. Physical Exam Psychiatric Orientation: alert, oriented to person and oriented to place Apperance: appropriately groomed and + disheveled Eye Contact: + fair eye contact Motor Behavior: steady gait and station and no abnormal motor movements Speech: normal rate/rhythm/volume of speech Affect: + anxious affect, + labile affect and + constricted affect Mood: + anxious mood; no depressed mood Thought Process: + circumstantial thought process, + tangential thought process, + confabulations and + concrete thought process Thought Content: + paranoid and + delusions Suicidal Thoughts: denies suicidal thoughts Homicidal Thoughts: denies homicidal thoughts Hallucinations: + gustatory hallucinations; no auditory hallucinations and no visual hallucinations Cognition: recent memory grossly intact, remote memory grossly intact, attention grossly intact and language grossly intact Estimated Intelligence: consistent with education level Insight: + poor insight and + impaired insight Judgement: + poor judgement and + impaired judgement Vital Signs (Past 24 Hours) Last Vital Signs Temp 36.4 C L 10/08/20 06:35 Pulse 150 H 10/08/20 06:35 Resp 16 10/08/20 06:35 BP 106/72 10/08/20 06:35 Pulse Ox 98 10/07/20 09:02 Results & Data ([facility]) Current Inpatient Medications Current Inpatient Medications: Current Inpatient Medications Acetaminophen (Acetaminophen 325 Mg Tab) 650 mg PO Q4H PRN PRN Reason: Headache or Minor Fever Stop: 10/28/20 17:22 Last Admin: 10/08/20 13:32 Dose: 650 mg Documented by: Al Hydrox/Mg Hydrox/Simethicone (Aluminum/Magnesium Susp 30 Ml Udc) 30 ml PO Q4H PRN PRN Reason: GI Upset Stop: 10/28/20 17:22 Albuterol (Albuterol Hfa 8 Gm Inhaler) 2 puffs INH Q4 PRN PRN Reason: wheezing Stop: 10/28/20 17:52 Aspirin (Aspirin 81 Mg Ectab) 81 mg PO QAM [facility] Stop: 10/29/20 08:59 Last Admin: 10/08/20 07:57 Dose: 81 mg Documented by: Bismuth Subsalicylate (Bismuth Subsalicylate Liqd 236 Ml) 15 ml PO PRN PRN PRN Reason: Loose Stool Stop: 10/28/20 17:22 Clonazepam (Clonazepam 0.5 Mg Tab) 0.5 mg PO BID [facility] Stop: 10/28/20 20:59 Last Admin: 10/08/20 07:58 Dose: 0.5 mg Documented by: Docusate Sodium (Docusate Sodium 100 Mg Cap) 100 mg PO BID [facility] Stop: 11/01/20 20:59 Last Admin: 10/08/20 07:58 Dose: 100 mg Documented by: Fish Oil ([place]-3 (Purified Fish Oil) 1 Gm Cap) 1 gm PO QAM [facility] Stop: 10/29/20 08:59 Last Admin: 10/08/20 07:59 Dose: 1 gm Documented by: Fluticasone/Vilanterol (Fluticasone/Vilanterol 200/25mcg 14 Puffs/Inhaler) 1 puffs INH DAILY [facility] Stop: 10/29/20 08:59 Last Admin: 10/08/20 08:01 Dose: Not Given Documented by: Gabapentin (Gabapentin 400 Mg Cap) 400 mg PO TID [facility] Stop: 10/28/20 20:59 Last Admin: 10/08/20 13:33 Dose: 400 mg Documented by: Hydroxyzine HCl (Hydroxyzine Hcl 25 Mg Tab) 50 mg PO HSZ PRN PRN Reason: Insomnia Stop: 10/28/20 17:22 Last Admin: 09/30/20 21:15 Dose: 50 mg Documented by: Hydroxyzine HCl (Hydroxyzine Hcl 25 Mg Tab) 25 mg PO Q4H PRN PRN Reason: Anxiety Stop: 10/28/20 17:22 Last Admin: 10/02/20 18:42 Dose: 25 mg Documented by: Ipratropium [place] (Ipratropium [place] Nasal [place] 0.06% 15ml) 2 sprays ERICH Q12 [facility] Stop: 10/28/20 20:59 Last Admin: 10/08/20 08:01 Dose: Not Given Documented by: Levothyroxine Sodium (Levothyroxine Sodium 88 Mcg Tablet) 88 mcg PO DAILYBB [facility] Stop: 10/29/20 06:29 Last Admin: 10/08/20 07:57 Dose: 88 mcg Documented by: Loratadine (Loratadine 10 Mg Tab) 10 mg PO QAM [facility] Stop: 10/29/20 08:59 Last Admin: 10/08/20 08:00 Dose: 10 mg Documented by: Magnesium Hydroxide (Magnesium Hydroxide Susp 30 Ml Udc) 30 ml PO DAILY PRN PRN Reason: Constipation Stop: 10/28/20 17:22 Metoprolol Tartrate (Metoprolol Tartrate 25 Mg Tab) 12.5 mg PO BID [facility] Stop: 10/28/20 20:59 Last Admin: 10/08/20 06:49 Dose: 12.5 mg Documented by: Nicotine Polacrilex (Nicotine Polacrilex 2 Mg Gum) 1 piece MT PRN PRN PRN Reason: Nicotine Withdrawal Stop: 10/28/20 17:22 Quetiapine Fumarate (Quetiapine Fumarate 200 Mg Tab) 200 mg PO QAM [facility] Stop: 11/02/20 08:59 Last Admin: 10/08/20 08:00 Dose: 200 mg Documented by: Quetiapine Fumarate (Quetiapine Fumarate 200 Mg Tab) 400 mg PO HS [facility] Stop: 11/02/20 21:59 Last Admin: 10/07/20 20:52 Dose: 400 mg Documented by: Simvastatin (Simvastatin 40 Mg Tab) 40 mg PO PM [facility] Stop: 10/28/20 20:59 Last Admin: 10/07/20 20:52 Dose: 40 mg Documented by: Sodium Chloride (Sodium Chloride 0.65% Na Soln 45 Ml ([place])) 1 - 2 sprays NA PRN PRN PRN Reason: Nasal Dryness/Congestion Stop: 10/28/20 17:22 Tramadol HCl (Tramadol Hcl 50 Mg Tablet) 50 mg PO TID PRN PRN Reason: pain Stop: 10/28/20 17:34 Last Admin: 10/06/20 09:02 Dose: 50 mg Documented by: Trazodone HCl (Trazodone Hcl 50 Mg Tab) 100 mg PO HS PRN PRN Reason: Insomnia Stop: 10/28/20 17:56 Last Admin: 10/04/20 21:32 Dose: 100 mg Documented by: Umeclidinium [place] (Umeclidinium [place] 62.5mcg/Blister 7 Puffs/Inhaler) 1 puffs INH DAILY [facility] Stop: 10/29/20 08:59 Last Admin: 10/08/20 08:00 Dose: Not Given Documented by: Vitamin D (Cholecalciferol 1,000 Units 25 Mcg Tab) 2,000 units PO QAM [facility] Stop: 10/29/20 08:59 Last Admin: 10/08/20 07:57 Dose: 2,000 units Documented by: Mental Health & Subst Abuse Tx Psychiatrist Name of Psychiatrist: Velvet Sanchez Psychiatrist's Date of Appointment with Psychiatrist: 10/21/20 Time of Appointment with Psychiatrist: 9:00 a.m. Psychiatric Appointment Comment: [address] [place] [id number] Therapist Name of Therapist: . Mandrel Maker Name of Mandrel Maker: [facility] Phone Number for Mandrel Maker: [phone] Date of Appointment with Mandrel Maker: 10/07/20 Post Discharge Appointments Primary Care Physician Name Of Family Doctor: MAN Lancaster (JADEN Olvera) Primary Care Provider Appointment Comment: [address] [place] [address] [place] [address] Specialist Name of Specialist: MAN Cardiology - Dr. Ga Villareal Phone Number for Specialist: Date of Appointment with Specialist: 10/24/20 Time of Appointment with Specialist: 1:30 p.m. Specialty Appointment Comment: [address], [place] [address] Contact Information Discharge (1) Schizophrenia Schizophrenia type: unspecified Qualified Code(s): F20.9 - Schizophrenia, unspecified
[2020-10-08] MEDS: hydrOXYzine HCl 25 MG TAB PO PRN (19:29)
[2020-10-08] MEDS: traMADol HCL 50 MG TABLET PO PRN (19:29)
[2020-10-08] MEDS: SIMVASTATIN 40 MG TAB PO SCH (21:03)
[2020-10-08 21:42] LABS: Creatine Kinase MB 7.9 ng/ml (0.5-3.6)
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
== END 2020-10-08 23:11 | disposition short-term general hospital (02) | DRG 885 ==
LOC: ED 13:54 → 3S 17:24

== ENCOUNTER 2020-10-08 23:12 | Inpatient (IN) ==
[2020-10-08] MEDS ORDERED: GLUCOSE 40% GEL 15 GM TUBE PO PRN (23:38)
[2020-10-08] MEDS ORDERED: GLUCAGON FOR INJ 1 MG VIAL SQ PRN (23:38)
[2020-10-08] MEDS ORDERED: CARBOHYDRATES FOR HYPOGLYCEMIA PO PRN (23:38)
[2020-10-08] MEDS ORDERED: DEXTROSE 50% 50 ML SYRINGE IV PRN (23:38)
[2020-10-08] MEDS ORDERED: GLUCOSE 10 TAB/TUBE PO PRN (23:38)
--- NOTE | 2020-10-08 23:44 | History & Physical Report ---
Date of Service October 08, 2020 Assessment & Plan (1) Atrial flutter with rapid ventricular response: Atrial flutter with RVR/hypertension/CAD/history of SD in childhood- Patient reports having had a previous episode of atrial flutter with RVR. The patient will be admitted to telemetry for serial cardiac enzymes, serial EKG's, cardiac rhythm monitoring and a 2-D echocardiogram with Dopplers. Heparin drip IV low-dose per protocol Continue aspirin 81 mg daily. Give metoprolol succinate 25 mg p.o. x1 now. Hold potential aggravating medications: Quetiapine, albuterol HFA and loratadine. Give NSS IV bolus x1 L NSS + KCl 20 mEq at 100 mils per hour Consult cardiology Present on Admission?: Yes (2) Fibromyalgia: Continue gabapentin and as needed trazodone Present on Admission?: Yes (3) COPD, moderate: Continue budesonide-formoterol Hold albuterol Present on Admission?: Yes (4) HTN (hypertension): See above Present on Admission?: Yes (5) Hyperlipidemia: Continue simvastatin Present on Admission?: Yes (6) Anxiety: Present on Admission?: Yes Admission and Anticipated Discharge Date Admission Date: October 08, 2020 History of Present Illness Chief Complaint: The patient was admitted to the PCU after complaining of substernal chest discomfort while being treated in the mental health unit, and was found by EKG to have atrial flutter with RVR Primary Care Provider: Peter Lancaster MD The patient is a 60-year-old female with a past medical history including anxiety, paranoia, thoracolumbar DDD, history of previous episode atrial flutter with RVR, fibromyalgia, nicotine addiction, unspecified psychosis, anemia, CAD, moderate COPD, chronic pancreatitis, chronic venous insufficiency, GERD without esophagitis, heart valve replacement, hyperactivity of bladder, migraine headache, osteomyelitis of sternum, PAD and schizophrenia. EKG upon admission showed atrial flutter with 2-1 block with RVR and rate of 140 bpm. She was transferred to the PCU, after being discharged from the mental health unit per protocol. Allergies Allergy/AdvReac Type Severity Reaction Status Date / Time Penicillins Allergy Unknown RASH Verified 09/28/20 14:49 perphenazine Allergy Unknown SWELLING Verified 09/28/20 14:49 ALL OVER BODY prednisone AdvReac Severe not able Verified 09/28/20 14:49 to sleep azithromycin AdvReac Hives Verified 09/28/20 14:49 Home Medications Medication Instructions Recorded Confirmed Type budesonide-formoterol HFA 160 2 puffs INHALATION BID #10.2 gm 03/08/19 09/28/20 Rx mcg-4.5 mcg/actuation aerosol inhaler cholecalciferol (vitamin D3) 50 2,000 units PO DAILY 03/08/19 09/28/20 History mcg (2,000 unit) capsule simvastatin 40 mg tablet 40 mg PO QPM #90 tab 03/22/20 09/28/20 Rx gabapentin 400 mg capsule 400 mg PO TID #90 cap 05/02/20 09/28/20 Rx aspirin 81 mg tablet,delayed 81 mg PO DAILY 07/03/20 09/28/20 History release loratadine 10 mg capsule 10 mg PO DAILY #30 cap 07/22/20 09/28/20 Rx albuterol sulfate 90 mcg/actuation 2 puff INHALATION QID PRN #18 g 08/09/20 09/28/20 Rx aerosol inhaler coenzyme Q10 [CoQ-10] 100 mg PO DAILY 08/15/20 09/28/20 History omega-3 fatty acids-fish oil 1 cap PO DAILY 08/15/20 09/28/20 History trazodone 100 mg PO HS PRN 08/15/20 09/28/20 History clonazepam 0.5 mg PO UD #0 tab 08/26/20 09/28/20 Rx quetiapine 100 mg PO BID #60 tab 08/26/20 09/28/20 Rx ipratropium bromide 2 spray INTRANASAL BID 09/09/20 09/28/20 History tramadol 50 - 100 mg PO TID PRN 09/09/20 09/28/20 History metoprolol tartrate 12.5 mg PO BID #30 tab 09/10/20 09/28/20 Rx tiotropium bromide 2.5 2 puff INHALATION DAILY gm 09/17/20 09/28/20 History mcg/actuation mist for inhalation levothyroxine 88 mcg PO QAM 10/09/20 10/09/20 History Past Med/Surg History Medical History Chronic osteomyelitis Chronic pain of right wrist COPD (chronic obstructive pulmonary disease) Current smoker Fibromyalgia GERD (gastroesophageal reflux disease) History of myocardial infarction in adulthood HTN (hypertension) Hyperlipidemia Long-term use of high-risk medication Nicotine addiction PAD (peripheral artery disease) Unspecified psychosis Surgical History H/O arthroscopic knee surgery History of cholecystectomy History of mitral valve repair History of tonsillectomy Family History Mother Breast cancer Uncle Diabetes Brother Diabetes Grandfather (Paternal) Diabetes Father Diabetes Grandmother (Maternal) Diabetes Colorectal cancer Social History Smoking Status: Current every day smoker Tobacco Type: Cigarettes packs per day: 1; Cigarettes Per Day: pack a day; Second Hand Exposure: Yes; Do You Dip or Chew Tobacco: No; Hx Alcohol Use: Yes Alcohol type: beer and wine Hx Substance Use: No Preferred Language: Yi Communication Ability: Effective Stereoptician Required: No Beliefs That Will Affect Care: None marital status: Single Current Living Situation: Alone current occupational status: disabled Other Information That Helps Us Care for You: No Feels Safe at Home: Yes Safety Concerns: Feels Safe At This Time Assistive Devices: None Review of Systems Review of Systems: The patient denies palpitations, shortness of breath, dyspnea on exertion, cough, lower extremity swelling, sore throat, fevers, chills, sweats, weight change, fatigue, nausea, vomiting, diarrhea , constipation, abdominal pain, pelvic pain, blood in urine or stool, dysuria, urinary frequency or urgency, lightheadedness, dizziness, headache, memory loss, loss of consciousness, rash, abnormal bruising or bleeding, imbalance, focal or generalized weakness, numbness or tingling in arms or legs, generalized arthralgias or myalgias, back or neck pain, or night sweats. The review of systems is otherwise negative other than for that already noted above, and at least 10 systems have been reviewed. Physical Exam Physical Exam: The patient is awake, alert and oriented 3, well developed and well nourished, normocephalic and atraumatic, lying in bed and in no acute distress. HEENT--PERRL, EOMI, mucous membranes and oropharynx dry. Neck--supple. No JVD. No bruits. Thyroid normal, trachea midline, no adenop athy. Heart--normal S1 and S2. No murmurs, rubs or gallops. Lungs--clear bilaterally, no respiratory distress, no accessory muscle use. Abdomen--normal bowel sounds and soft. Nontender. Nondistended, no hernias or masses, no organomegaly. Extremities--no cyanosis or clubbing. No edema. Dermatologic--normal skin turgor, normal color, no abnormal lymph nodes, no rash. Neurologic--cranial nerves II through XII grossly intact. Rheumatologic--normal range of motion. Psychiatric--normal affect. Results & Data Results & Data ([facility]) Laboratory Results Laboratory Results WBC 8.20 K/uL (4.8-10.8) 10/08/20 23:59 RBC 3.66 M/uL (4.2-5.4) L 10/08/20 23:59 Hgb 12.1 g/dL (12.0-16.0) 10/08/20 23:59 Hct 36.1 % (37-47) L 10/08/20 23:59 MCV 98.6 fL (80-100) 10/08/20 23:59 MCH 33.1 pg (25-34) 10/08/20 23:59 MCHC 33.5 g/dL (32-36) 10/08/20 23:59 RDW Std Deviation 51.2 fL (36.4-46.3) H 10/08/20 23:59 RDW Coeff of Samreen 14.3 % (11.5-14.5) 10/08/20 23:59 Plt Count 246 K/uL (130-400) 10/08/20 23:59 MPV 10.6 fL (7.4-10.4) H 10/08/20 23:59 Immature Gran % (Auto) 0.1 % 10/08/20 23:59 Neut % (Auto) 59.4 % 10/08/20 23:59 Lymph % (Auto) 29.5 % 10/08/20 23:59 Moca % (Auto) 8.3 % 10/08/20 23:59 Eos % (Auto) 2.2 % 10/08/20 23:59 Baso % (Auto) 0.5 % 10/08/20 23:59 Neut # (Auto) 4.87 K/uL (1.4-6.5) 10/08/20 23:59 Lymph # (Auto) 2.42 K/uL (1.2-3.4) 10/08/20 23:59 Moca # (Auto) 0.68 K/uL (0.11-0.59) H 10/08/20 23:59 Eos # (Auto) 0.18 K/uL (0-0.5) 10/08/20 23:59 Baso # (Auto) 0.04 K/uL (0-0.2) 10/08/20 23:59 Immature Gran # (Auto) 0.01 K/uL (0.00-0.02) 10/08/20 23:59 PT 10.4 Seconds (9.0-12.0) 10/08/20 23:59 INR 1.0 (0.9-1.1) 10/08/20 23:59 APTT 25.5 Seconds (21.0-31.0) 10/08/20 23:59 PTT Ratio 1.0 10/08/20 23:59 Sodium 141 mmol/L (136-145) 10/08/20 23:59 Potassium 4.1 mmol/L (3.5-5.1) 10/08/20 23:59 Chloride 106 mmol/L (98-107) 10/08/20 23:59 Carbon Dioxide 30 mmol/L (21-32) 10/08/20 23:59 Anion Gap 4.0 (3-11) 10/08/20 23:59 BUN 22 mg/dl (7-18) H 10/08/20 23:59 Creatinine 0.84 mg/dl (0.6-1.2) 10/08/20 23:59 Est Cr Clr Drug Dosing 59.7 ml/min 10/08/20 23:59 Est GFR ( Amer) 88.2 10/08/20 23:59 Est GFR (Non-Af Amer) 76.1 10/08/20 23:59 BUN/Creatinine Ratio 26.6 (10-20) H 10/08/20 23:59 Glucose 100 mg/dl (70-99) H 10/08/20 23:59 Calcium 9.4 mg/dl (8.5-10.1) 10/08/20 23:59 Magnesium 2.0 mg/dl (1.8-2.4) 10/08/20 23:59 Total Bilirubin 0.1 mg/dl (0.2-1) L 10/08/20 23:59 AST 32 U/L (15-37) 10/08/20 23:59 ALT 41 U/L (12-78) 10/08/20 23:59 Alkaline Phosphatase 154 U/L (45-117) H 10/08/20 23:59 Troponin I < 0.015 ng/ml (0-0.045) 10/08/20 23:59 Total Protein 7.4 gm/dl (6.4-8.2) 10/08/20 23:59 Albumin 3.5 gm/dl (3.4-5.0) 10/08/20 23:59 Globulin 3.9 gm/dl (2.5-4.0) 10/08/20 23:59 Albumin/Globulin Ratio 0.9 (0.9-2) 10/08/20 23:59 Code Status & VTE Plan Code Status Full code VTE Prophylaxis Plan VTE Prophylaxis will be ordered: Yes PG Care Time/CCT Total # of Minutes Spent Total Time Spent with Patient: Total time spent is greater than 50% in coordination of care (as documented) at patient's floor/unit and/or counseling patient: Coding Level of Care Code 03200 Initial Inpt Care Lvl 3 Diagnoses Atrial flutter with rapid ventricular response I48.92 Fibromyalgia M79.7 COPD, moderate J44.9 HTN (hypertension) I10 Hyperlipidemia E78.5 Anxiety F41.9
[2020-10-09 00:05] LABS: Basophils # (auto) 0.04 K/uL (0-0.2); Basophils % (auto) 0.5 %; Eosinophils # (auto) 0.18 K/uL (0-0.5); Eosinophils % (auto) 2.2 %; Hematocrit (blood only) 36.1 % (37-47); Hemoglobin 12.1 g/dL (12.0-16.0); Immature Granulocytes # (auto) 0.01 K/uL (0.00-0.02); Immature Granulocytes % (auto) 0.1 %; Lymphocytes # (auto) 2.42 K/uL (1.2-3.4); Lymphocytes % (auto) 29.5 %; Mean Corpuscular Hemoglobin 33.1 pg (25-34); Mean Corpuscular Volume 98.6 fL (80-100); Mean Platelet Volume 10.6 fL (7.4-10.4); Monocytes # (auto) 0.68 K/uL (0.11-0.59); Monocytes % (auto) 8.3 %; Neutrophils # (auto) 4.87 K/uL (1.4-6.5); Neutrophils % (auto) 59.4 %; Platelet Count 246 K/uL (130-400); RDW Coefficient of Variation 14.3 % (11.5-14.5); RDW Standard Deviation 51.2 fL (36.4-46.3); Red Blood Count 3.66 M/uL (4.2-5.4)
[2020-10-09 00:21] LABS: Alanine Aminotransferase 41 U/L (12-78); Albumin Level 3.5 gm/dl (3.4-5.0); Aspartate Aminotransferase 32 U/L (15-37); BUN Creatinine Ratio 26.6 (10-20); Blood Urea Nitrogen 22 mg/dl (7-18); Calcium 9.4 mg/dl (8.5-10.1); Carbon Dioxide 30 mmol/L (21-32); Chloride 106 mmol/L (98-107); Creatinine Clr Calc Pharmacy 59.7 ml/min; Est GFR (African American) 88.2; Est GFR (Non-African American) 76.1; Glucose 100 mg/dl (70-99); Potassium 4.1 mmol/L (3.5-5.1); Sodium 141 mmol/L (136-145)
[2020-10-09 00:22] LABS: Partial Thromboplastin Time 25.5 Seconds (21.0-31.0); Prothrombin Time 10.4 Seconds (9.0-12.0)
[2020-10-09 00:26] LABS: Albumin Globulin Ratio 0.9 (0.9-2); Alkaline Phosphatase 154 U/L (45-117); Bilirubin,Total 0.1 mg/dl (0.2-1); Globulin 3.9 gm/dl (2.5-4.0); Mean Corpuscular Hgb Conc 33.5 g/dL (32-36); Total Protein 7.4 gm/dl (6.4-8.2); Troponin I < 0.015 ng/ml (0-0.045)
[2020-10-09] MEDS: NSS + 20MEQ KCL 20 MEQ/1,000 ML BAG IV SCH ×3 (00:51→20:38)
[2020-10-09] MEDS ORDERED: Heparin IV Adult Wt-Based Low-Dose *NO* Bolus Protocol ONE (00:57)
[2020-10-09] MEDS ORDERED: HEPARIN SODIUM/DEXTROSE 25,000 UNITS/500 ML BAG IV SCH (01:00)
[2020-10-09] MEDS ORDERED: METOPROLOL SUCC 25MG EXT REL TAB PO STA (01:10)
[2020-10-09] MEDS ORDERED: SODIUM CHLORIDE 0.9% 1000ML 1,000 ML IV SCH (04:14)
[2020-10-09] MEDS: LEVOTHYROXINE SODIUM 88 MCG TABLET PO SCH (04:57)
--- NOTE | 2020-10-09 07:03 | XRay Report ---
XR chest 1V portable CLINICAL HISTORY: atrial flutter, chest pain COMPARISON STUDY: 09/10/2020 FINDINGS: There are postsurgical changes of a midline sternotomy and valvular replacement. There is n o failure. There is no focal pulmonary consolidation. There are no pleural effusions. There has been interval resolution of the previously identified interstitial edema.[ IMPRESSION: No active disease in the chest. ACT 112: Negative or not required by law. Electronically signed by: Vish No M.D. 10/09/2020 7:01 AM
[2020-10-09 08:05] LABS: Partial Thromboplastin Ratio 1.2; Partial Thromboplastin Time 31.4 Seconds (21.0-31.0)
[2020-10-09] MEDS: ASPIRIN 81 MG ECTAB PO SCH (08:07)
[2020-10-09] MEDS: CHOLECALCIFEROL 1,000 UNITS 25 MCG TAB PO SCH (08:07)
[2020-10-09] MEDS: GABAPENTIN 400 MG CAP PO SCH ×3 (08:07→20:32)
[2020-10-09] MEDS: FLUTICASONE/VILANTEROL 100/25MCG 14 PUFFS/INHALER INH SCH (08:10)
--- NOTE | 2020-10-09 09:48 | Cardiology Consultation ---
Date of Consultation October 09, 2020 Assessment & Plan (1) Paroxysmal atrial flutter: 2. CAD-- known occluded RCA 3. History of severe mitral regurgitation status post mitral valve repair 4. Chronic sternal osteomyelitis--on suppressive antibiotics 5. Schizophrenia Patient admitted with minimally symptomatic atrial flutter with RVR with heart rates up to the 140s. Atrial flutter with RVR persists today. We discussed potential options including cardioversion. Patient became tearful with the suggestion of an "electric shock." Use of antiarrhythmics complicated by underlying structural heart disease and chronic use of antipsychotics. For now recommend continued attempts at rate control. Previously converted on diltiazem infusion. Start diltiazem drip and titrate to resting heart rate less than 110 Convert heparin infusion to Eliquis. Continue home metoprolol 25 mg twice daily History of Present Illness Attending Physician: Mendez Sinclair DO History of Present Illness Ms. Bran is a 60-year-old woman with a history of schizophrenia, recovered ischemic cardiomyopathy, coronary artery disease with known completely occluded RCA, hyperlipidemia, COPD, prior severe mitral regurgitation status post mitral valve repair/annuloplasty with post-op course complicated by sternal wound infections and chronic osteomyelitis admitted here from inpatient psychiatry with atrial flutter with RVR. Patient was hospitalized last month due to patient concerns for sternal wire was poking out of her skin. During that hospitalization was noted to be atrial flutter with RVR. Converted on diltiazem infusion. Discharged the following day on prior beta-jose maria. Not thought to be an ideal anticoagulation candidate. Patient readmitted to inpatient psychiatric unit more than 1 week ago. Transferred to inpatient medical unit yesterday in the setting of endorsed chest tightness and elevated heart rate with ECG again showing atrial flutter with RVR . Reports chest tightness improved overnight. 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 Denied any shortness of breath, presyncope. Recent cardiac testing: Echo 08/2020: LVEF 55 to 60%, normal RV size with mildly reduced function, elevated mitral transvalvular gradient consistent with nonsevere stenosis. PASP 34 mmHg. Cardiac history: Patient was previously followed by Dr. Mendez for her cardiovascular care. Mitral regurgitation was initially diagnosed back in July of 2010. Preoperative cardiac catheterization was notable for completely occluded right coronary artery. She underwent mitral valve repair with a 26 mm Stephenie- Mccoy physeal ring by Dr. Perales at [facility] in 2011. Later in the fall of 2011 she developed an open sternal wound draining pus with eventual exposed hardware for which she was treated IV antibiotics and has been on jail suppressive antibiotics Allergies Allergy/AdvReac Type Severity Reaction Status Date / Time Penicillins Allergy Unknown RASH Verified 09/28/20 14:49 perphenazine Allergy Unknown SWELLING Verified 09/28/20 14:49 ALL OVER BODY prednisone AdvReac Severe not able Verified 09/28/20 14:49 to sleep azithromycin AdvReac Hives Verified 09/28/20 14:49 Home Medications Medication Instructions Recorded Confirmed Type budesonide-formoterol HFA 160 2 puffs INHALATION BID #10.2 gm 03/08/19 09/28/20 Rx mcg-4.5 mcg/actuation aerosol inhaler cholecalciferol (vitamin D3) 50 2,000 units PO DAILY 03/08/19 09/28/20 History mcg (2,000 unit) capsule simvastatin 40 mg tablet 40 mg PO QPM #90 tab 03/22/20 09/28/20 Rx gabapentin 400 mg capsule 400 mg PO TID #90 cap 05/02/20 09/28/20 Rx aspirin 81 mg tablet,delayed 81 mg PO DAILY 07/03/20 09/28/20 History release loratadine 10 mg capsule 10 mg PO DAILY #30 cap 07/22/20 09/28/20 Rx albuterol sulfate 90 mcg/actuation 2 puff INHALATION QID PRN #18 g 08/09/20 09/28/20 Rx aerosol inhaler coenzyme Q10 [CoQ-10] 100 mg PO DAILY 08/15/20 09/28/20 History omega-3 fatty acids-fish oil 1 cap PO DAILY 08/15/20 09/28/20 History trazodone 100 mg PO HS PRN 08/15/20 09/28/20 History clonazepam 0.5 mg PO UD #0 tab 08/26/20 09/28/20 Rx quetiapine 100 mg PO BID #60 tab 08/26/20 09/28/20 Rx ipratropium bromide 2 spray INTRANASAL BID 09/09/20 09/28/20 History tramadol 50 - 100 mg PO TID PRN 09/09/20 09/28/20 History metoprolol tartrate 12.5 mg PO BID #30 tab 09/10/20 09/28/20 Rx tiotropium bromide 2.5 2 puff INHALATION DAILY gm 09/17/20 09/28/20 History mcg/actuation mist for inhalation levothyroxine 88 mcg PO QAM 10/09/20 10/09/20 History Patient History Medical History (Updated 10/09/20 @ 10:36 by Dexter Mills PA-C) Chronic osteomyelitis Chronic pain of right wrist COPD (chronic obstructive pulmonary disease) Current smoker Fibromyalgia GERD (gastroesophageal reflux disease) History of myocardial infarction in adulthood HTN (hypertension) Hyperlipidemia Long-term use of high-risk medication Nicotine addiction PAD (peripheral artery disease) Unspecified psychosis Surgical History H/O arthroscopic knee surgery History of cholecystectomy History of mitral valve repair History of tonsillectomy Family History Mother Breast cancer Uncle Diabetes Brother Diabetes Grandfather (Paternal) Diabetes Father Diabetes Grandmother (Maternal) Diabetes Colorectal cancer Social History Smoking Status: Current every day smoker Tobacco Type: Cigarettes packs per day: 1; Cigarettes Per Day: pack a day; Second Hand Exposure: Yes; Do You Dip or Chew Tobacco: No; Hx Alcohol Use: Yes Alcohol type: beer and wine Hx Substance Use: No Preferred Language: Pashto Communication Ability: Effective Aws Solution Architect Required: No Beliefs That Will Affect Care: None marital status: Single Current Living Situation: Alone current occupational status: disabled Other Information That Helps Us Care for You: No Feels Safe at Home: Yes Safety Concerns: Feels Safe At This Time Assistive Devices: None Review of Systems Review of Systems: All systems reviewed & are unremarkable except as noted in HPI & below Physical Exam Physical Exam: General: Comfortable HEENT: Sclerae anicteric, Mask in place Lungs: Clear to auscultation bilaterally, no crackles or wheezes Cardiac: Regular rate and rhythm, no murmurs. Vascular: 2+ radial, DP pulses. No bruits Abdomen: Soft, nontender Extremities: Well perfused, no peripheral edema Neuro: Nonfocal Psych: Alert orient x3, normal affect and mood this up to a dozen schedule diagnostic Results & Data ([facility]) Vital Signs (Past 12 Hours) Vital Signs Temp Pulse Pulse Resp BP Pulse Ox 10/09/20 08:50 110 H 10/09/20 07:49 98.1 F 139 H 22 121/83 98 10/09/20 04:32 103/66 10/09/20 04:08 97.7 F 132 H 18 79/53 L 99 10/08/20 23:33 97.9 F 137 H 118/82 100 PG Care Time/CCT Total # of Minutes Spent Total Time Spent with Patient: Total time spent is greater than 50% in coordination of care (as documented) at patient's floor/unit and/or counseling patient: Coding Level of Care Code 04621 Inpt Consult Level 4 Diagnoses Paroxysmal atrial flutter I48.92
[2020-10-09] MEDS ORDERED: METOPROLOL TARTRATE 1 MG/ML VIAL IV STA (10:31)
--- NOTE | 2020-10-09 10:34 | Hospitalist Progress Note ---
Date of Service October 09, 2020 Assessment & Plan (1) Atrial flutter with rapid ventricular response: Ms. Bran is a 60 year old female with a history of Paroxysmal Atrial Flutter, Hypertension, Hyperlipidemia, COPD, Severe MR s/p Annuloplasty Ring 08/31/2011 (now with Mitral Stenosis), GERD, Depression, Osteopenia, PAD, CAD, Anemia, Schizophrenia, and Chronic Venous Insufficiency who is an inpatient in our mental health unit who went into Rapid Atrial Flutter last evening and symptoms manifested as substernal chest discomfort and palpitations. EKG confirmed Atrial Flutter with RVR. She was admitted to the PCU. She is on a Heparin drip and she received a single dose of Metoprolol Succinate ER 25 mg last evening, but unfortunately patient remains in A-Flutter with V rates in the 120's to 140's. This is her second documented episode of A-Flutter with RVR. Recommend the following: -- Lopressor 5 mg IV now, and Q4H as needed for HR > 110 bpm. -- Lopressor 25 mg p.o. b.i.d.. -- Begin IV Diltiazem at 5 mg/hr, no bolus. -- Discontinue Heparin drip. -- Begin Eliquis 5 mg p.o. b.i.d. with 1st dose today at 2 p.m. -- Goal is anticoagulation and rate control for now/consider cardioversion if her rate is not well controlled or if she doesn't spontaneously convert on her own. (2) Paroxysmal atrial flutter: -- As outlined above. -- History of mitral valve annuloplasty and now appears to have severe mitral stenosis that likely contributes to her atrial arrhythmia. (3) HTN (hypertension): -- Beta jose maria as added above. -- Low sodium diet. -- Stop smoking. (4) Hyperlipidemia: -- continue Simvastatin 40 mg daily. -- Continue Micanopy 3 fish oil capsules. (5) COPD, moderate: -- Currently asymptomatic. -- Continue usual inhalers. Admission and Anticipated Discharge Date Admission Date: October 08, 2020 Subjective Ms. Bran is a 60 year old female with a history of Paroxysmal Atrial Flutter, Hypertension, Hyperlipidemia, COPD, Severe MR s/p Annuloplasty Ring 08/31/2011 (now with Mitral Stenosis), GERD, Depression, Osteopenia, PAD, CAD, Anemia, Schizophrenia, and Chronic Venous Insufficiency who is an inpatient in our mental health unit that developed substernal chest discomfort and palpitations. EKG showed Atrial Flutter with RVR so she was admitted to the PCU. She is on a Heparin drip and she received a single dose of Metoprolol Succinate ER 25 mg last evening, but unfortunately patient remains in A-Flutter with V rates in the 120's to 140's. She offers no complaints currently. She specifically denies any chest pain, heaviness, tightness, or pressure. She denies any SOB, WYATT, orthopnea, or PND. No symptoms suggestive of stroke or mini-stroke. Review of Systems Review of Systems: All systems reviewed & are unremarkable except as noted in Subjective Physical Exam Physical Exam: GENERAL: Patient in no acute distress. HEENT: Head is atraumatic, normocephalic. EOM's intact. Facies symmetric. No perioral cyanosis. NECK: No JVD. JVP is at the level of the clavicle sitting upright. Carotid upstrokes are + 2 bilaterally. No bruits are noted. CHEST/LUNGS: mildly diminished breath sounds throughout but otherwise clear, no rales or wheezes. CVS: S1 and S2 are slightly irregular, distant, and tachycardic without obvious murmurs, gallops, or rubs. PMI is nondisplaced. No lifts, heaves, or thrills. No abdominal aortic or renal bruits. ABDOMINAL EXAM: Bowel sounds are present. No masses, organomegaly, or tenderness. EXTREMITIES: No clubbing or cyanosis. No edema. Intact radial pulses bilaterally. NEUROLOGIC EXAM: Patient is awake, alert, and oriented. Pleasant and cooperative. Answers questions appropriately. Speech is clear. Normal movement in all 4 extremities. Gait pattern was not assessed. TELEMETRY: -- Atrial flutter with variable AV conduction with rates ranging from 110 to 140's. Results & Data Results & Data ([facility]) Vital Signs (Past 12 Hours) Vital Signs Temp Pulse Pulse Resp BP Pulse Ox 10/09/20 08:50 110 H 10/09/20 07:49 36.7 C 139 H 22 121/83 98 10/09/20 04:32 103/66 10/09/20 04:08 36.5 C 132 H 18 79/53 L 99 10/08/20 23:33 36.6 C 137 H 118/82 100 Laboratory Results Laboratory Results - last 24 hr 10/08/20 10/08/20 10/08/20 23:59 23:59 23:59 WBC 8.20 RBC 3.66 L Hgb 12.1 Hct 36.1 L MCV 98.6 MCH 33.1 MCHC 33.5 RDW Std Deviation 51.2 H RDW Coeff of Samreen 14.3 Plt Count 246 MPV 10.6 H Immature Gran % (Auto) 0.1 Neut % (Auto) 59.4 Lymph % (Auto) 29.5 [place] % (Auto) 8.3 Eos % (Auto) 2.2 Baso % (Auto) 0.5 Neut # (Auto) 4.87 Lymph # (Auto) 2.42 [place] # (Auto) 0.68 H Eos # (Auto) 0.18 Baso # (Auto) 0.04 Immature Gran # (Auto) 0.01 PT 10.4 INR 1.0 APTT 25.5 PTT Ratio 1.0 Sodium 141 Potassium 4.1 Chloride 106 Carbon Dioxide 30 Anion Gap 4.0 BUN 22 H Creatinine 0.84 Est Cr Clr Drug Dosing 59.7 Est GFR ( Amer) 88.2 Est GFR (Non-Af Amer) 76.1 BUN/Creatinine Ratio 26.6 H Glucose 100 H Calcium 9.4 Magnesium 2.0 Total Bilirubin 0.1 L AST 32 ALT 41 Alkaline Phosphatase 154 H Troponin I < 0.015 Total Protein 7.4 Albumin 3.5 Globulin 3.9 Albumin/Globulin Ratio 0.9 Hepatitis C Ab Screen 10/09/20 10/09/20 07:30 07:30 WBC RBC Hgb Hct MCV MCH MCHC RDW Std Deviation RDW Coeff of Samreen Plt Count MPV Immature Gran % (Auto) Neut % (Auto) Lymph % (Auto) [place] % (Auto) Eos % (Auto) Baso % (Auto) Neut # (Auto) Lymph # (Auto) [place] # (Auto) Eos # (Auto) Baso # (Auto) Immature Gran # (Auto) PT INR APTT 31.4 H PTT Ratio 1.2 Sodium Potassium Chloride Carbon Dioxide Anion Gap BUN Creatinine Est Cr Clr Drug Dosing Est GFR ( Amer) Est GFR (Non-Af Amer) BUN/Creatinine Ratio Glucose Calcium Magnesium Total Bilirubin AST ALT Alkaline Phosphatase Troponin I Total Protein Albumin Globulin Albumin/Globulin Ratio Hepatitis C Ab Screen Pending Diagnostic Findings CXR 10/08/20: -- There are postsurgical changes of a midline sternotomy and valvular replacement. There is no failure. There is no focal pulmonary consolidation. There are no pleural effusions. -- There has been interval resolution of the previously identified interstitial edema. IMPRESSION: -- No active disease in the chest. Medications Administered Medications budesonide-formoterol HFA 160 mcg-4.5 mcg/actuation aerosol inhaler 2 puffs INHALATION BID #10.2 gm 03/08/19 [Rx Confirmed 09/28/20] cholecalciferol (vitamin D3) 50 mcg (2,000 unit) capsule 2,000 units PO DAILY 03/08/19 [History Confirmed 09/28/20] simvastatin 40 mg tablet 40 mg PO QPM #90 tab 03/22/20 [Rx Confirmed 09/28/20] gabapentin 400 mg capsule 400 mg PO TID #90 cap 05/02/20 [Rx Confirmed 09/28/20] aspirin 81 mg tablet,delayed release 81 mg PO DAILY 07/03/20 [History Confirmed 09/28/20] loratadine 10 mg capsule 10 mg PO DAILY #30 cap 07/22/20 [Rx Confirmed 09/28/20] albuterol sulfate 90 mcg/actuation aerosol inhaler 2 puff INHALATION QID PRN #18 g 08/09/20 [Rx Confirmed 09/28/20] coenzyme Q10 [CoQ-10] 100 mg PO DAILY 08/15/20 [History Confirmed 09/28/20] omega-3 fatty acids-fish oil 1 cap PO DAILY 08/15/20 [History Confirmed 09/28/20] trazodone 100 mg PO HS PRN 08/15/20 [History Confirmed 09/28/20] clonazepam 0.5 mg PO UD #0 tab 08/26/20 [Rx Confirmed 09/28/20] quetiapine 100 mg PO BID #60 tab 08/26/20 [Rx Confirmed 09/28/20] ipratropium bromide 2 spray INTRANASAL BID 09/09/20 [History Confirmed 09/28/20] tramadol 50 - 100 mg PO TID PRN 09/09/20 [History Confirmed 09/28/20] metoprolol tartrate 12.5 mg PO BID #30 tab 09/10/20 [Rx Confirmed 09/28/20] tiotropium bromide 2.5 mcg/actuation mist for inhalation 2 puff INHALATION DAILY gm 09/17/20 [History Confirmed 09/28/20] levothyroxine 88 mcg PO QAM 10/09/20 [History Confirmed 10/09/20] Home Medications Acetaminophen (Acetaminophen 325 Mg Tab) 650 mg PO Q4H PRN PRN Reason: Pain or Fever Stop: 11/07/20 23:37 Aspirin (Aspirin 81 Mg Ectab) 81 mg PO DAILY DUNIA Stop: 11/08/20 08:59 Last Admin: 10/09/20 08:07 Dose: 81 mg Documented by: Clonazepam (Clonazepam 0.5 Mg Tab) 0.5 mg PO DAILY PRN PRN Reason: Anxiety Stop: 11/08/20 08:59 Dextrose (Dextrose 50% 50 Ml Syringe) 25 - 50 ml IV UD PRN; Protocol PRN Reason: Hypoglycemia Protocol Stop: 11/07/20 23:37 Fluticasone/Vilanterol (Fluticasone/Vilanterol 100/25mcg 14 Puffs/Inhaler) 1 puffs INH DAILY DUNIA Stop: 11/08/20 08:59 Last Admin: 10/09/20 08:10 Dose: 1 puffs Documented by: Gabapentin (Gabapentin 400 Mg Cap) 400 mg PO TID DUNIA Stop: 11/08/20 08:59 Last Admin: 10/09/20 08:07 Dose: 400 mg Documented by: Glucagon (Glucagon For Inj 1 Mg Vial) 1 mg SQ UD PRN; Protocol PRN Reason: Hypoglycemia Protocol Stop: 11/07/20 23:37 Glucose (Glucose 10 Tabs/Tube) 4 - 8 tabs PO UD PRN; Protocol PRN Reason: Hypoglycemia Protocol Stop: 11/07/20 23:37 Glucose (Glucose 40% Gel 15 Gm Tube) 15 - 30 gm PO UD PRN; Protocol PRN Reason: Hypoglycemia Protocol Stop: 11/07/20 23:37 Potassium Chloride/Sodium Chloride (Normal Saline W/20 Meq Kcl) 20 meq in 1,000 mls @ 100 mls/hr IV .Q10H DUNIA Stop: 11/07/20 23:44 Last Infusion: 10/09/20 04:56 Dose: 0 mls/hr Documented by: Heparin Sodium/Dextrose (Heparin Sodium/Dextrose) 25,000 units in 500 mls @ 13 mls/hr IV .Q24H DUNIA; Protocol Stop: 11/08/20 00:59 Last Titration: 10/09/20 07:14 Dose: 650 units/hr, 13 mls/hr Documented by: Levothyroxine Sodium (Levothyroxine Sodium 88 Mcg Tablet) 88 mcg PO DAILYBB DUNIA Stop: 11/08/20 06:29 Last Admin: 10/09/20 04:57 Dose: 88 mcg Documented by: Metoprolol Tartrate (Metoprolol Tartrate 1 Mg/Ml Vial) 5 mg IV NOW STA Stop: 10/09/20 10:32 Metoprolol Tartrate (Metoprolol Tartrate 1 Mg/Ml Vial) 5 mg IV Q4 DUNIA Stop: 11/08/20 11:59 Metoprolol Tartrate (Metoprolol Tartrate 25 Mg Tab) 25 mg PO BID DUNIA Stop: 11/08/20 10:44 Miscellaneous (Carbohydrates For Hypoglycemia ) 15 - 30 gm PO UD PRN PRN Reason: Hypoglycemia Protocol Stop: 11/07/20 23:37 Ondansetron HCl (Ondansetron Inj 2 Mg/Ml 2 Ml Vial) 4 mg IV Q6H PRN PRN Reason: Nausea Stop: 11/07/20 23:37 Simvastatin (Simvastatin 40 Mg Tab) 40 mg PO QPM DUNIA Stop: 11/08/20 20:59 Tramadol HCl (Tramadol Hcl 50 Mg Tablet) 50 mg PO TID PRN PRN Reason: Moderate Pain Stop: 11/08/20 00:58 Trazodone HCl (Trazodone Hcl 50 Mg Tab) 100 mg PO HS PRN PRN Reason: Sleep Stop: 11/08/20 01:10 Vitamin D (Cholecalciferol 1,000 Units 25 Mcg Tab) 2,000 units PO DAILY DUNIA Stop: 11/08/20 08:59 Last Admin: 10/09/20 08:07 Dose: 2,000 units Documented by: PG Care Time/CCT Total # of Minutes Spent Total Time Spent with Patient: Total time spent is greater than 50% in coordination of care (as documented) at patient's floor/unit and/or counseling patient: Coding Level of Care Code 48156 Subseq Hosp Care Lvl 3 Diagnoses Atrial flutter with rapid ventricular response I48.92 Paroxysmal atrial flutter I48.92 HTN (hypertension) I10 Hyperlipidemia E78.5 COPD, moderate J44.9 Time Spent (min) 60
[2020-10-09] MEDS ORDERED: METOPROLOL TARTRATE 1 MG/ML VIAL IV PRN (10:41)
[2020-10-09] MEDS: METOPROLOL TARTRATE 25 MG TAB PO SCH ×2 (11:26→20:32)
[2020-10-09] MEDS ORDERED: HEPARIN SOD (PORCINE) 1000 UNIT/ML IV ONE (11:30)
[2020-10-09] MEDS ORDERED: STAT IV Infusion **Titration per Protocol STA (11:37)
[2020-10-09] MEDS: dilTIAZem HCL 125 MG in DEXTROSE 5% 100 ML IV SCH (12:00)
[2020-10-09] MEDS ORDERED: METOPROLOL TARTRATE 1 MG/ML VIAL IV SCH (12:00)
[2020-10-09] MEDS: QUEtiapine FUMARATE 200 MG TAB PO SCH ×2 (12:54→20:31)
--- NOTE | 2020-10-09 13:35 | Discharge Summary ---
Date of Service October 09, 2020 Physical Exam Vital Signs (Past 24 Hours) Last Vital Signs Temp 36.7 C 10/09/20 07:49 Pulse 128 H 10/09/20 12:55 Resp 22 10/09/20 07:49 BP 118/86 10/09/20 12:55 Pulse Ox 98 10/09/20 07:49 Principal Diagnosis schizophrenia Psychiatric Data Advance Directives Advance Directives Information Provided: No Advance Directives: No Advance Directives on File: No Living Will: No Power of Robotics Technologist: No Advance Directives Reason:: Declines as Mental Health Visit. Discharge Data Consultations 10/08/20 23:38 Consult Cardiology Routine Lab Results 10/08/20 10/08/20 10/08/20 23:59 23:59 23:59 WBC 8.20 RBC 3.66 L Hgb 12.1 Hct 36.1 L MCV 98.6 MCH 33.1 MCHC 33.5 RDW Std Deviation 51.2 H RDW Coeff of Samreen 14.3 Plt Count 246 MPV 10.6 H Immature Gran % (Auto) 0.1 Neut % (Auto) 59.4 Lymph % (Auto) 29.5 [place] % (Auto) 8.3 Eos % (Auto) 2.2 Baso % (Auto) 0.5 Neut # (Auto) 4.87 Lymph # (Auto) 2.42 [place] # (Auto) 0.68 H Eos # (Auto) 0.18 Baso # (Auto) 0.04 Immature Gran # (Auto) 0.01 PT 10.4 INR 1.0 APTT 25.5 PTT Ratio 1.0 Sodium 141 Potassium 4.1 Chloride 106 Carbon Dioxide 30 Anion Gap 4.0 BUN 22 H Creatinine 0.84 Est Cr Clr Drug Dosing 59.7 Est GFR ( Amer) 88.2 Est GFR (Non-Af Amer) 76.1 BUN/Creatinine Ratio 26.6 H Glucose 100 H Calcium 9.4 Magnesium 2.0 Total Bilirubin 0.1 L AST 32 ALT 41 Alkaline Phosphatase 154 H Troponin I < 0.015 Total Protein 7.4 Albumin 3.5 Globulin 3.9 Albumin/Globulin Ratio 0.9 Hepatitis C Ab Screen 10/09/20 10/09/20 07:30 07:30 WBC RBC Hgb Hct MCV MCH MCHC RDW Std Deviation RDW Coeff of Samreen Plt Count MPV Immature Gran % (Auto) Neut % (Auto) Lymph % (Auto) [place] % (Auto) Eos % (Auto) Baso % (Auto) Neut # (Auto) Lymph # (Auto) [place] # (Auto) Eos # (Auto) Baso # (Auto) Immature Gran # (Auto) PT INR APTT 31.4 H PTT Ratio 1.2 Sodium Potassium Chloride Carbon Dioxide Anion Gap BUN Creatinine Est Cr Clr Drug Dosing Est GFR ( Amer) Est GFR (Non-Af Amer) BUN/Creatinine Ratio Glucose Calcium Magnesium Total Bilirubin AST ALT Alkaline Phosphatase Troponin I Total Protein Albumin Globulin Albumin/Globulin Ratio Hepatitis C Ab Screen Neg Discharge Plan Discharge Items Reason For Visit: ATRIAL FLUTTER WITH RVR Medications and DC Order Prescriptions: No Action simvastatin 40 mg tablet 40 mg PO QPM Qty: 90 RF: 3 albuterol sulfate 90 mcg/actuation HFA aerosol inhaler 2 puff inhalation QID PRN (Reason: Shortness Of Breath) Qty: 18 RF: 11 aspirin 81 mg tablet,delayed release (DR/EC) 81 mg PO DAILY RF: 0 tiotropium bromide 2.5 mcg/actuation mist 2 puff inhalation DAILY RF: 0 loratadine 10 mg capsule 10 mg PO DAILY Qty: 30 RF: 5 cholecalciferol (vitamin D3) 2,000 unit capsule 2,000 units PO DAILY RF: 0 budesonide-formoterol 160-4.5 mcg/actuation HFA aerosol inhaler 2 puffs inhalation BID Qty: 10.2 RF: 11 gabapentin 400 mg capsule 400 mg PO TID Qty: 90 RF: 5 trazodone 100 mg Tablet 100 mg PO HS PRN (Reason: Sleep) RF: 0 coenzyme Q10 [CoQ-10] 100 mg Capsule 100 mg PO DAILY RF: 0 omega-3 fatty acids-fish oil 684-1,200 mg Capsule,Delayed Release(Dr/Ec) 1 cap PO DAILY RF: 0 quetiapine 100 mg Tablet 100 mg PO BID Qty: 60 RF: 0 clonazepam 1 mg tablet 0.5 mg PO UD Qty: 0 RF: 0 ipratropium bromide 42 mcg (0.06 %) spray,non-aerosol 2 spray intranasal BID RF: 0 tramadol 50 mg tablet 50 - 100 mg PO TID PRN (Reason: pain) RF: 0 metoprolol tartrate 25 mg tablet 12.5 mg PO BID Qty: 30 RF: 0 levothyroxine tablet 88 mcg PO QAM RF: 0 Admission Data Admit Date/Time: 10/08/20 23:12 Attending Provider: Mendez Sinclair Admit Provider: Matty Suggs Primary Care Provider: Peter Lancaster III Other Providers: Kit Villareal
[2020-10-09] MEDS: APIXABAN 5 MG TABLET PO SCH ×2 (14:35→20:33)
--- NOTE | 2020-10-09 15:05 | Communication Note ---
Date of Service: October 09, 2020 On the night of 10/08/2020 patient was complaining of chest pain. Patient has a history of cardiac issues including atrial flutter in the past. Given her hi story as well as her current symptoms patient was ordered an EKG and when found to have significant pathology was transferred to medical floors for further work-up and telemetry monitoring. From a psychiatric perspective patient was stable and awaiting placement via [facility] services. She had been compliant with her medication which included 600 mg of Seroquel divided into 2 daily doses of 200 mg in the morning and 400 mg at night. Patient was also compliant with her clonazepam medication as well as her numerous other medications. Psychiatry services will continue to follow patient while she is on the medical floors to ensure proper med administration, mood stability, and assist with discharge planning.
[2020-10-09] MEDS ORDERED: SODIUM CHLORIDE 0.65% NA SOLN 45 ML (OCEAN) ONE (19:15)
[2020-10-09] MEDS: SIMVASTATIN 40 MG TAB PO SCH (20:31)
[2020-10-10] MEDS: dilTIAZem HCL 125 MG in DEXTROSE 5% 100 ML IV SCH (01:35)
[2020-10-10] MEDS: LEVOTHYROXINE SODIUM 88 MCG TABLET PO SCH (05:36)
--- NOTE | 2020-10-10 05:48 | Electrocardiogram Report ---
Test Reason : Blood Pressure : / mmHG Vent. Rate : 140 BPM Atrial Rate : 280 BPM P-R Int : 000 ms QRS Dur : 082 ms QT Int : 152 ms P-R-T Axes : 267 -24 213 degrees QTc Int : 232 ms Poor data quality, interpretation may be adversely affected Atrial flutter with 2:1 A-V conduction Inferior infarct (cited on or before 31-OCT-2010) Abnormal ECG When compared with ECG of 28-SEP-2020 16:42, Atrial flutter has replaced Sinus rhythm Vent. rate has increased BY 59 BPM Non-specific change in ST segment in Inferior leads Confirmed by Yaniv Hazel ([id number]) on 10/10/2020 5:47:50 AM Referred By: Matty Suggs Confirmed By:Yaniv Hazel
--- NOTE | 2020-10-10 05:57 | Electrocardiogram Report ---
Test Reason : Blood Pressure : / mmHG Vent. Rate : 111 BPM Atrial Rate : 271 BPM P-R Int : 000 ms QRS Dur : 090 ms QT Int : 352 ms P-R-T Axes : 000 197 137 degrees QTc Int : 478 ms Atrial flutter with variable A-V block Right superior axis deviation Inferior infarct (cited on or before 31-OCT-2010) Abnormal ECG When compared with ECG of 08-OCT-2020 21:23, No significant change Confirmed by Yaniv Hazel ([id number]) on 10/10/2020 5:57:35 AM Referred By: Matty Suggs Confirmed By:Yaniv Hazel
[2020-10-10] MEDS: NSS + 20MEQ KCL 20 MEQ/1,000 ML BAG IV SCH (06:26)
[2020-10-10] MEDS: APIXABAN 5 MG TABLET PO SCH ×2 (08:49→20:21)
[2020-10-10] MEDS: ASPIRIN 81 MG ECTAB PO SCH (08:50)
[2020-10-10] MEDS: CHOLECALCIFEROL 1,000 UNITS 25 MCG TAB PO SCH (08:50)
[2020-10-10] MEDS: GABAPENTIN 400 MG CAP PO SCH ×3 (08:50→20:19)
[2020-10-10] MEDS: FLUTICASONE/VILANTEROL 100/25MCG 14 PUFFS/INHALER INH SCH (08:51)
[2020-10-10] MEDS: METOPROLOL TARTRATE 25 MG TAB PO SCH (08:51)
[2020-10-10] MEDS: QUEtiapine FUMARATE 200 MG TAB PO SCH ×2 (08:52→20:18)
--- NOTE | 2020-10-10 08:55 | Cardiology Progress Note ---
Date of Service October 10, 2020 Assessment & Plan (1) Paroxysmal atrial flutter: 2. CAD-- known occluded RCA 3. History of severe mitral regurgitation status post mitral valve repair 4. Chronic sternal osteomyelitis--on suppressive antibiotics 5. Schizophrenia Remains in atrial flutter but rate controlled and asymptomatic on metoprolol, diltiazem infusion. Transition diltiazem drip to p.o. diltiazem 120 mg daily Continue metoprolol 25 mg twice daily Continue Eliquis Can discontinue IV fluids Can discontinue aspirin Requesting JO stockings for discomfort from chronic lower extremity swelling Okay to return to inpatient psychiatric unit if remains rate controlled on p.o. diltiazem. Admission and Anticipated Discharge Date Admission Date: October 08, 2020 Subjective Feeling well today. Reports some chest tightness only when pushes on her chest. Denies shortness of breath. Reports mild nausea. Mild leg discomfort which she attributes to chronic swelling. Telemetry reviewedhas primarily been in 4-1 atrial flutter with heart rates in the 70s overnight and this morning Review of Systems Review of Systems: All systems reviewed & are unremarkable except as noted in HPI & below Physical Exam Physical Exam: General: Comfortable HEENT: Sclerae anicteric Lungs: Clear to auscultation bilaterally, no crackles or wheezes Cardiac: Regular rate and rhythm Vascular: 2+ radial Abdomen: Soft, nontender Extremities: Well perfused, no peripheral edema, varicose veins Neuro: Nonfocal Results & Data ([facility]) Vital Signs (Past 12 Hours) Vital Signs Temp Pulse Pulse Resp BP Pulse Ox 10/10/20 07:54 98.2 F 72 18 110/62 98 10/10/20 04:13 109/66 10/10/20 03:38 97.7 F 70 20 87/52 L 95 10/09/20 23:52 97.9 F 69 20 94/54 L 97 10/09/20 23:41 70 PG Care Time/CCT Total # of Minutes Spent Total Time Spent with Patient: Total time spent is greater than 50% in coordination of care (as documented) at patient's floor/unit and/or counseling patient: Coding Level of Care Code 92400 Subseq Hosp Care Lvl 3 Diagnoses Paroxysmal atrial flutter I48.92
[2020-10-10] MEDS ORDERED: [UNRECOGNIZED DRUG - OTHER] PO ONE (10:15)
[2020-10-10] MEDS ORDERED: Nursing to Pharmacy Communication SCH (11:00)
--- NOTE | 2020-10-10 11:18 | Hospitalist Progress Note ---
Date of Service October 10, 2020 Assessment & Plan Admission and Anticipated Discharge Date Admission Date: October 08, 2020 Physical Exam Physical Exam: GENERAL: Patient in no acute distress. HEENT: Head is atraumatic, normocephalic. EOM's intact. Facies symmetric. No perioral cyanosis. NECK: No JVD. JVP is at the level of the clavicle sitting upright. Carotid upstrokes are + 2 bilaterally. No bruits are noted. CHEST/LUNGS: Mildly diminished breath sounds throughout but otherwise clear, no rales or wheezes. CVS: S1 and S2 are slightly irregular and distant at a rate of 98 bpm without obvious murmurs, gallops, or rubs. PMI is nondisplaced. No lifts, heaves, or thrills. No abdominal aortic or renal bruits. ABDOMINAL EXAM: Bowel sounds are present. No masses, organomegaly, or tenderness. EXTREMITIES: No clubbing or cyanosis. No edema. Intact radial pulses bilaterally. NEUROLOGIC EXAM: Patient is awake, alert, and oriented. Pleasant and cooperat aditya. Answers questions appropriately. Speech is clear. Normal movement in all 4 extremities. Gait pattern was not assessed. TELEMETRY: -- Atrial flutter with 4:1 AV conduction overnight with rates in the 70's. -- Atrial flutter with variable AV conduction ranging from 80's to 120's. Results & Data Results & Data ([facility]) Vital Signs (Past 12 Hours) Vital Signs Temp Pulse Pulse Resp BP Pulse Ox 10/10/20 08:00 70 10/10/20 07:54 36.8 C 72 18 110/62 98 10/10/20 04:13 109/66 10/10/20 03:38 36.5 C 70 20 87/52 L 95 10/09/20 23:52 36.6 C 69 20 94/54 L 97 10/09/20 23:41 70 Medications Administered Medications budesonide-formoterol HFA 160 mcg-4.5 mcg/actuation aerosol inhaler 2 puffs INHALATION BID #10.2 gm 03/08/19 [Rx Confirmed 09/28/20] cholecalciferol (vitamin D3) 50 mcg (2,000 unit) capsule 2,000 units PO DAILY 03/08/19 [History Confirmed 09/28/20] simvastatin 40 mg tablet 40 mg PO QPM #90 tab 03/22/20 [Rx Confirmed 09/28/20] gabapentin 400 mg capsule 400 mg PO TID #90 cap 05/02/20 [Rx Confirmed 09/28/20] aspirin 81 mg tablet,delayed release 81 mg PO DAILY 07/03/20 [History Confirmed 09/28/20] loratadine 10 mg capsule 10 mg PO DAILY #30 cap 07/22/20 [Rx Confirmed 09/28/20] albuterol sulfate 90 mcg/actuation aerosol inhaler 2 puff INHALATION QID PRN #18 g 08/09/20 [Rx Confirmed 09/28/20] coenzyme Q10 [CoQ-10] 100 mg PO DAILY 08/15/20 [History Confirmed 09/28/20] omega-3 fatty acids-fish oil 1 cap PO DAILY 08/15/20 [History Confirmed 09/28/20] trazodone 100 mg PO HS PRN 08/15/20 [History Confirmed 09/28/20] clonazepam 0.5 mg PO UD #0 tab 08/26/20 [Rx Confirmed 09/28/20] quetiapine 100 mg PO BID #60 tab 08/26/20 [Rx Confirmed 09/28/20] ipratropium bromide 2 spray INTRANASAL BID 09/09/20 [History Confirmed 09/28/20] tramadol 50 - 100 mg PO TID PRN 09/09/20 [History Confirmed 09/28/20] metoprolol tartrate 12.5 mg PO BID #30 tab 09/10/20 [Rx Confirmed 09/28/20] tiotropium bromide 2.5 mcg/actuation mist for inhalation 2 puff INHALATION DAILY gm 09/17/20 [History Confirmed 09/28/20] levothyroxine 88 mcg PO QAM 10/09/20 [History Confirmed 10/09/20] Home Medications Acetaminophen (Acetaminophen 325 Mg Tab) 650 mg PO Q4H PRN PRN Reason: Pain or Fever Stop: 11/07/20 23:37 Apixaban (Apixaban 5 Mg Tablet) 5 mg PO BID [facility] Stop: 11/08/20 13:59 Last Admin: 10/10/20 08:49 Dose: 5 mg Documented by: Aspirin (Aspirin 81 Mg Ectab) 81 mg PO DAILY [facility] Stop: 11/08/20 08:59 Last Admin: 10/10/20 08:50 Dose: 81 mg Documented by: Clonazepam (Clonazepam 0.5 Mg Tab) 0.5 mg PO DAILY PRN PRN Reason: Anxiety Stop: 11/08/20 08:59 Dextrose (Dextrose 50% 50 Ml Syringe) 25 - 50 ml IV UD PRN; Protocol PRN Reason: Hypoglycemia Protocol Stop: 11/07/20 23:37 Diltiazem HCl (Diltiazem Hcl 120 Mg Capcr) 120 mg PO QAM [facility] Stop: 11/09/20 11:59 Fluticasone/Vilanterol (Fluticasone/Vilanterol 100/25mcg 14 Puffs/Inhaler) 1 puffs INH DAILY [facility] Stop: 11/08/20 08:59 Last Admin: 10/10/20 08:51 Dose: 1 puffs Documented by: Gabapentin (Gabapentin 400 Mg Cap) 400 mg PO TID [facility] Stop: 11/08/20 08:59 Last Admin: 10/10/20 08:50 Dose: 400 mg Documented by: Glucagon (Glucagon For Inj 1 Mg Vial) 1 mg SQ UD PRN; Protocol PRN Reason: Hypoglycemia Protocol Stop: 11/07/20 23:37 Glucose (Glucose 10 Tabs/Tube) 4 - 8 tabs PO UD PRN; Protocol PRN Reason: Hypoglycemia Protocol Stop: 11/07/20 23:37 Glucose (Glucose 40% Gel 15 Gm Tube) 15 - 30 gm PO UD PRN; Protocol PRN Reason: Hypoglycemia Protocol Stop: 11/07/20 23:37 Levothyroxine Sodium (Levothyroxine Sodium 88 Mcg Tablet) 88 mcg PO DAILYBB [facility] Stop: 11/08/20 06:29 Last Admin: 10/10/20 05:36 Dose: 88 mcg Documented by: Metoprolol Tartrate (Metoprolol Tartrate 25 Mg Tab) 25 mg PO BID [facility] Stop: 11/08/20 10:44 Last Admin: 10/10/20 08:51 Dose: 25 mg Documented by: Metoprolol Tartrate (Metoprolol Tartrate 1 Mg/Ml Vial) 5 mg IV Q4 PRN PRN Reason: Tachycardia Stop: 11/08/20 11:59 Miscellaneous (Carbohydrates For Hypoglycemia ) 15 - 30 gm PO UD PRN PRN Reason: Hypoglycemia Protocol Stop: 11/07/20 23:37 Ondansetron HCl (Ondansetron Inj 2 Mg/Ml 2 Ml Vial) 4 mg IV Q6H PRN PRN Reason: Nausea Stop: 11/07/20 23:37 Quetiapine Fumarate (Quetiapine Fumarate 200 Mg Tab) 200 mg PO QAM [facility] Stop: 11/08/20 11:59 Last Admin: 10/10/20 08:52 Dose: 200 mg Documented by: Quetiapine Fumarate (Quetiapine Fumarate 200 Mg Tab) 400 mg PO QPM [facility] Stop: 11/08/20 20:59 Last Admin: 10/09/20 20:31 Dose: 400 mg Documented by: Simvastatin (Simvastatin 40 Mg Tab) 40 mg PO QPM [facility] Stop: 11/08/20 20:59 Last Admin: 10/09/20 20:31 Dose: 40 mg Documented by: Tramadol HCl (Tramadol Hcl 50 Mg Tablet) 50 mg PO TID PRN PRN Reason: Moderate Pain Stop: 11/08/20 00:58 Trazodone HCl (Trazodone Hcl 50 Mg Tab) 100 mg PO HS PRN PRN Reason: Sleep Stop: 11/08/20 01:10 Trimethoprim/Sulfamethoxazole (Sulfamethoxazole/Trimethoprim Ds 800/160mg Tab) 1 tab PO Q12 [facility] Stop: 11/21/20 20:59 Vitamin D (Cholecalciferol 1,000 Units 25 Mcg Tab) 2,000 units PO DAILY [facility] Stop: 11/08/20 08:59 Last Admin: 10/10/20 08:50 Dose: 2,000 units Documented by: ASSESSMENT & PLAN: (1) Atrial flutter with rapid ventricular response: Ms. Bran is a 60 year old female with a history of Paroxysmal Atrial Flutter, Hypertension, Hyperlipidemia, COPD, Severe MR s/p Annuloplasty Ring 08/31/2011 (now with Mitral Stenosis), GERD, Depression, Osteopenia, PAD, CAD, Anemia, Schizophrenia, and Chronic Venous Insufficiency who remains in A-Flutter Her heart rates have improved with the combination beta-blockers and calcium channel jose maria. Recommend the following: -- Lopressor 5 mg IV now, and Q4H as needed for HR > 110 bpm. -- Lopressor 25 mg p.o. b.i.d.. -- Stop IV Diltiazem drip. -- Begin Diltiazem CD 120 mg daily early this afternoon. -- Eliquis 5 mg p.o. b.i.d. with 1st dose today at 2 p.m. -- Continue with anticoagulation and rate control strategy. -- If HR's remain reasonably well controlled, may discharge from PCU later today. -- Follow-up with [facility] following discharge. (2) Paroxysmal atrial flutter: -- As outlined above. -- History of mitral valve annuloplasty and now appears to have severe mitral stenosis that likely contributes to her atrial arrhythmia. (3) HTN (hypertension): -- Lopressor 25 mg p.o. b.i.d.. -- Diltiazem CD 120 mg daily. -- Low sodium diet. -- Stop smoking. (4) Hyperlipidemia: -- Continue Simvastatin 40 mg daily. -- Continue [place] 3 fish oil capsules. (5) COPD, moderate: -- Currently asymptomatic. -- Continue usual inhalers. PG Care Time/CCT Total # of Minutes Spent Total Time Spent with Patient: Total time spent is greater than 50% in coordination of care (as documented) at patient's floor/unit and/or counseling patient: Coding Level of Care Code 48609 Subseq Hosp Care Lvl 3 Time Spent (min) 50
[2020-10-10] MEDS: traMADol HCL 50 MG TABLET PO PRN ×2 (11:53→21:43)
[2020-10-10] MEDS: dilTIAZem HCL 120 MG CAPCR PO SCH (11:53)
[2020-10-10] MEDS: clonazePAM 0.5 MG TAB PO PRN (15:00)
[2020-10-10] MEDS: ACETAMINOPHEN 325 MG TAB PO PRN (15:41)
[2020-10-10] MEDS ORDERED: METOPROLOL TARTRATE 50 MG TAB PO ONE (18:25)
[2020-10-10] MEDS: SULFAMETHOXAZOLE/TRIMETHOPRIM DS 800/160MG TAB PO SCH (20:18)
[2020-10-10] MEDS: SIMVASTATIN 40 MG TAB PO SCH (20:20)
[2020-10-10] MEDS: traZODone HCL 50 MG TAB PO PRN (21:44)
[2020-10-10] MEDS: ONDANSETRON INJ 2 MG/ML 2 ML VIAL IV PRN (22:44)
--- NOTE | 2020-10-10 22:47 | Electrocardiogram Report ---
Test Reason : Blood Pressure : / mmHG Vent. Rate : 070 BPM Atrial Rate : 280 BPM P-R Int : 000 ms QRS Dur : 114 ms QT Int : 420 ms P-R-T Axes : -87 -14 -01 degrees QTc Int : 453 ms Atrial flutter with 4:1 A-V conduction Inferior infarct (cited on or before 31-OCT-2010) Abnormal ECG When compared with ECG of 09-OCT-2020 05:03, Vent. rate has decreased BY 41 BPM QRS duration has increased T wave inversion now evident in Inferior leads T wave inversion no longer evident in Lateral leads (suspect limb lead reversal on prior ECG) Confirmed by Yaniv Hazel ([id number]) on 10/10/2020 10:47:02 PM Referred By: Matty Suggs Confirmed By:Yaniv Hazel
[2020-10-11] MEDS: ACETAMINOPHEN 325 MG TAB PO PRN ×4 (00:19→17:08)
[2020-10-11] MEDS: clonazePAM 0.5 MG TAB PO PRN ×2 (00:20→17:11)
[2020-10-11] MEDS: METOPROLOL TARTRATE 50 MG TAB PO SCH ×3 (00:23→20:43)
[2020-10-11] MEDS ORDERED: SODIUM CHLORIDE 0.9% 500 ML IV SCH (01:30)
[2020-10-11] MEDS: traMADol HCL 50 MG TABLET PO PRN ×3 (03:19→20:41)
[2020-10-11] MEDS: LEVOTHYROXINE SODIUM 88 MCG TABLET PO SCH (05:18)
[2020-10-11] MEDS: dilTIAZem HCL 120 MG CAPCR PO SCH ×2 (08:09→09:24)
[2020-10-11] MEDS: APIXABAN 5 MG TABLET PO SCH ×2 (09:24→20:50)
[2020-10-11] MEDS: ASPIRIN 81 MG ECTAB PO SCH (09:24)
[2020-10-11] MEDS: SULFAMETHOXAZOLE/TRIMETHOPRIM DS 800/160MG TAB PO SCH ×2 (09:24→20:48)
[2020-10-11] MEDS: QUEtiapine FUMARATE 200 MG TAB PO SCH ×2 (09:25→20:49)
[2020-10-11] MEDS: GABAPENTIN 400 MG CAP PO SCH ×3 (09:25→20:49)
[2020-10-11] MEDS: FLUTICASONE/VILANTEROL 100/25MCG 14 PUFFS/INHALER INH SCH (09:26)
[2020-10-11] MEDS: CHOLECALCIFEROL 1,000 UNITS 25 MCG TAB PO SCH (09:26)
--- NOTE | 2020-10-11 10:39 | Hospitalist Progress Note ---
Date of Service October 11, 2020 Assessment & Plan Admission and Anticipated Discharge Date Admission Date: Assessment & Plan (1) Atrial flutter with rapid ventricular response: Ms. Bran is a 60 year old female with a history of Paroxysmal Atrial Flutter, Hypertension, Hyperlipidemia, COPD, Severe MR s/p Annuloplasty Ring 08/31/2011 (now with Mitral Stenosis), GERD, Depression, Osteopenia, PAD, CAD, Anemia, Schizophrenia, and Chronic Venous Insufficiency who is an inpatient in our mental health unit who went into Rapid Atrial Flutter on 10/08/20 and symptoms manifested as substernal chest discomfort and palpitations. Admitted to PCU for further evaluation and treatment. She is now on Lopressor 50 mg b.i.d. and Diltiazem CD 120 mg daily for rate control. She is on Eliquis 5 mg b.i.d. for thromboembolic prophylaxis. Overnight, she remained in A-Flutter with 4:1 AV conduction with rates in the 70's to 90's. HR is running in the low 100's when she is awake. She is asymptomatic with her A-Flutter and is tolerating her current regimen without adverse side effects. She offers no complaints currently. She has not had any angina pectoris, overt signs or symptoms of heart failure, or any symptoms attributable to her A- Flutter. No symptoms suggestive of stroke or mini-stroke. She has chronic sternal tenderness/soreness related to sternal osteomyelitis. Bactrim DS restarted yesterday because she was previously on it as a suppressive agent as per Dr. Roxanne FALCON. Recommend the following: -- Continue Lopressor 50 mg p.o. b.i.d.. -- Continue Diltiazem CD 120 mg daily. -- Continue Eliquis 5 mg p.o. b.i.d.. -- Rate is reasonably well controlled and she is asymptomatic from her A-Flutter -- Goal is anticoagulation and rate control for now. -- Stable from a Medical/Cardiac standpoint for transfer back to [address] [place] [address]. (2) Paroxysmal atrial flutter: -- As outlined above. -- History of mitral valve annuloplasty and now appears to have severe mitral stenosis that likely contributes to her atrial arrhythmia. (3) HTN (hypertension): -- BP controlled. -- Continue Lopressor 50 mg p.o. b.i.d.. -- Continue Diltiazem CD 120 mg daily. -- Low sodium diet. -- Stop smoking. (4) Hyperlipidemia: -- Continue Simvastatin 40 mg daily. -- Continue [place] 3 fish oil capsules. (5) COPD, moderate: -- Currently asymptomatic. -- Continue usual inhalers. Supervising Physician Co-Signing Physician Notes Heart rate is better today, but BP was a little soft this morning, Lopressor 50mg was held but Cardizem 120mg was given continue to monitor on tele and observe trends in blood pressure, want to make sure she is stable for at least 24 hours prior to transfer back to psychiatric unit Subjective Ms. Bran is a 60 year old female with a history of Paroxysmal Atrial Flutter, Hypertension, Hyperlipidemia, COPD, Severe MR s/p Annuloplasty Ring 08/31/2011 (now with Mitral Stenosis), GERD, Depression, Osteopenia, PAD, CAD, Anemia, Schizophrenia, and Chronic Venous Insufficiency who is an inpatient in our mental health unit that developed substernal chest discomfort and palpitations. EKG showed Atrial Flutter with RVR so she was admitted to the PCU. She is now on Lopressor 50 mg b.i.d. and Diltiazem CD 120 mg daily for rate control. She is on Eliquis 5 mg b.i.d. for thromboembolic prophylaxis. Overnight, she remained in A-Flutter with 4:1 AV conduction with rates in the 70's to 90's. HR is running in the low 100's when she is awake. She is asymptomatic with her A-Flutter and is tolerating her current regimen without adverse side effects. She offers no complaints currently. She specifically denies any exertional chest pain, heaviness, tightness, or pressure. She denies any SOB, WYATT, orthopnea, or PND. No symptoms suggestive of stroke or mini-stroke. She has chronic sternal tenderness/soreness related to sternal osteomyelitis. Bactrim DS restarted yesterday because she was previously on it as a suppressive agent as per Dr. Roxanne FALCON. Review of Systems Review of Systems: All systems reviewed & are unremarkable except as noted in Subjective Physical Exam Physical Exam: GENERAL: Patient in no acute distress. HEENT: Head is atraumatic, normocephalic. EOM's intact. Facies symmetric. No perioral cyanosis. NECK: No JVD. JVP is at the level of the clavicle sitting upright. Carotid upstrokes are + 2 bilaterally. No bruits are noted. CHEST/LUNGS: Mildly diminished breath sounds throughout but otherwise clear, no rales or wheezes. CVS: S1 and S2 are slightly irregular and distant at a rate of 90 bpm without obvious murmurs, gallops, or rubs. PMI is nondisplaced. No lifts, heaves, or thrills. No abdominal aortic or renal bruits. Sternum tender to palpation. ABDOMINAL EXAM: Bowel sounds are present. No masses, organomegaly, or tenderness. EXTREMITIES: No clubbing or cyanosis. No edema. Intact radial pulses bilaterally. NEUROLOGIC EXAM: Patient is awake, alert, and oriented. Pleasant and cooperative. Answers questions appropriately. Speech is clear. Normal movement in all 4 extremities. Gait pattern was not assessed. TELEMETRY: -- Atrial flutter with 4:1 AV conduction overnight with rates in the 70's. -- Atrial flutter with variable AV conduction ranging from 80 to 115 bpm during waking hours. Results & Data Results & Data ([facility]) Vital Signs (Past 12 Hours) Vital Signs Temp Pulse Pulse Resp BP Pulse Ox 10/11/20 09:23 76 18 101/76 95 10/11/20 07:48 36.4 C L 92 H 18 90/55 L 97 10/11/20 03:00 36.6 C 116 H 18 102/55 L 96 10/11/20 01:06 103/71 10/11/20 00:20 87/62 L 10/10/20 22:43 36.6 C 111 H 15 99/67 L 97 Medications Administered Medications budesonide-formoterol HFA 160 mcg-4.5 mcg/actuation aerosol inhaler 2 puffs INHALATION BID #10.2 gm 03/08/19 [Rx Confirmed 09/28/20] cholecalciferol (vitamin D3) 50 mcg (2,000 unit) capsule 2,000 units PO DAILY 03/08/19 [History Confirmed 09/28/20] simvastatin 40 mg tablet 40 mg PO QPM #90 tab 03/22/20 [Rx Confirmed 09/28/20] gabapentin 400 mg capsule 400 mg PO TID #90 cap 05/02/20 [Rx Confirmed 09/28/20] aspirin 81 mg tablet,delayed release 81 mg PO DAILY 07/03/20 [History Confirmed 09/28/20] loratadine 10 mg capsule 10 mg PO DAILY #30 cap 07/22/20 [Rx Confirmed 09/28/20] albuterol sulfate 90 mcg/actuation aerosol inhaler 2 puff INHALATION QID PRN #18 g 08/09/20 [Rx Confirmed 09/28/20] coenzyme Q10 [CoQ-10] 100 mg PO DAILY 08/15/20 [History Confirmed 09/28/20] omega-3 fatty acids-fish oil 1 cap PO DAILY 08/15/20 [History Confirmed 09/28/20] trazodone 100 mg PO HS PRN 08/15/20 [History Confirmed 09/28/20] clonazepam 0.5 mg PO UD #0 tab 08/26/20 [Rx Confirmed 09/28/20] quetiapine 100 mg PO BID #60 tab 08/26/20 [Rx Confirmed 09/28/20] ipratropium bromide 2 spray INTRANASAL BID 09/09/20 [History Confirmed 09/28/20] tramadol 50 - 100 mg PO TID PRN 09/09/20 [History Confirmed 09/28/20] metoprolol tartrate 12.5 mg PO BID #30 tab 09/10/20 [Rx Confirmed 09/28/20] tiotropium bromide 2.5 mcg/actuation mist for inhalation 2 puff INHALATION DAILY gm 09/17/20 [History Confirmed 09/28/20] levothyroxine 88 mcg PO QAM 10/09/20 [History Confirmed 10/09/20] Home Medications Acetaminophen (Acetaminophen 325 Mg Tab) 650 mg PO Q4H PRN PRN Reason: Pain or Fever Stop: 11/07/20 23:37 Last Admin: 10/11/20 09:27 Dose: 650 mg Documented by: Apixaban (Apixaban 5 Mg Tablet) 5 mg PO BID [facility] Stop: 11/08/20 13:59 Last Admin: 10/11/20 09:24 Dose: 5 mg Documented by: Aspirin (Aspirin 81 Mg Ectab) 81 mg PO DAILY [facility] Stop: 11/08/20 08:59 Last Admin: 10/11/20 09:24 Dose: 81 mg Documented by: Clonazepam (Clonazepam 0.5 Mg Tab) 0.5 mg PO DAILY PRN PRN Reason: Anxiety Stop: 11/08/20 08:59 Last Admin: 10/11/20 00:20 Dose: 0.5 mg Documented by: Dextrose (Dextrose 50% 50 Ml Syringe) 25 - 50 ml IV UD PRN; Protocol PRN Reason: Hypoglycemia Protocol Stop: 11/07/20 23:37 Diltiazem HCl (Diltiazem Hcl 120 Mg Capcr) 120 mg PO QAM [facility] Stop: 11/09/20 11:59 Last Admin: 10/11/20 09:24 Dose: 120 mg Documented by: Fluticasone/Vilanterol (Fluticasone/Vilanterol 100/25mcg 14 Puffs/Inhaler) 1 puffs INH DAILY [facility] Stop: 11/08/20 08:59 Last Admin: 10/11/20 09:26 Dose: 1 puffs Documented by: Gabapentin (Gabapentin 400 Mg Cap) 400 mg PO TID [facility] Stop: 11/08/20 08:59 Last Admin: 10/11/20 09:25 Dose: 400 mg Documented by: Glucagon (Glucagon For Inj 1 Mg Vial) 1 mg SQ UD PRN; Protocol PRN Reason: Hypoglycemia Protocol Stop: 11/07/20 23:37 Glucose (Glucose 10 Tabs/Tube) 4 - 8 tabs PO UD PRN; Protocol PRN Reason: Hypoglycemia Protocol Stop: 11/07/20 23:37 Glucose (Glucose 40% Gel 15 Gm Tube) 15 - 30 gm PO UD PRN; Protocol PRN Reason: Hypoglycemia Protocol Stop: 11/07/20 23:37 Levothyroxine Sodium (Levothyroxine Sodium 88 Mcg Tablet) 88 mcg PO DAILYBB [facility] Stop: 11/08/20 06:29 Last Admin: 10/11/20 05:18 Dose: 88 mcg Documented by: Metoprolol Tartrate (Metoprolol Tartrate 1 Mg/Ml Vial) 5 mg IV Q4 PRN PRN Reason: Tachycardia Stop: 11/08/20 11:59 Last Admin: 10/10/20 17:30 Dose: 5 mg Documented by: Metoprolol Tartrate (Metoprolol Tartrate 50 Mg Tab) 50 mg PO BID [facility] Stop: 11/09/20 21:59 Last Admin: 10/11/20 09:24 Dose: 50 mg Documented by: Miscellaneous (Carbohydrates For Hypoglycemia ) 15 - 30 gm PO UD PRN PRN Reason: Hypoglycemia Protocol Stop: 11/07/20 23:37 Ondansetron HCl (Ondansetron Inj 2 Mg/Ml 2 Ml Vial) 4 mg IV Q6H PRN PRN Reason: Nausea Stop: 11/07/20 23:37 Last Admin: 10/10/20 22:44 Dose: 4 mg Documented by: Quetiapine Fumarate (Quetiapine Fumarate 200 Mg Tab) 200 mg PO QAM [facility] Stop: 11/08/20 11:59 Last Admin: 10/11/20 09:25 Dose: 200 mg Documented by: Quetiapine Fumarate (Quetiapine Fumarate 200 Mg Tab) 400 mg PO QPM [facility] Stop: 11/08/20 20:59 Last Admin: 10/10/20 20:18 Dose: 400 mg Documented by: Simvastatin (Simvastatin 40 Mg Tab) 40 mg PO QPM [facility] Stop: 11/08/20 20:59 Last Admin: 10/10/20 20:20 Dose: 40 mg Documented by: Tramadol HCl (Tramadol Hcl 50 Mg Tablet) 50 mg PO TID PRN PRN Reason: Moderate Pain Stop: 11/08/20 00:58 Last Admin: 10/11/20 03:19 Dose: 50 mg Documented by: Trazodone HCl (Trazodone Hcl 50 Mg Tab) 100 mg PO HS PRN PRN Reason: Sleep Stop: 11/08/20 01:10 Last Admin: 10/10/20 21:44 Dose: 100 mg Documented by: Trimethoprim/Sulfamethoxazole (Sulfamethoxazole/Trimethoprim Ds 800/160mg Tab) 1 tab PO Q12 [facility] Stop: 11/21/20 20:59 Last Admin: 10/11/20 09:24 Dose: 1 tab Documented by: Vitamin D (Cholecalciferol 1,000 Units 25 Mcg Tab) 2,000 units PO DAILY [facility] Stop: 11/08/20 08:59 Last Admin: 10/11/20 09:26 Dose: 2,000 units Documented by: PG Care Time/CCT Total # of Minutes Spent Total Time Spent with Patient: Total time spent is greater than 50% in coordination of care (as documented) at patient's floor/unit and/or counseling patient:45 Coding Level of Care Code 30570 Subseq Hosp Care Lvl 3
--- NOTE | 2020-10-11 10:57 | Cardiology Progress Note ---
Date of Service October 11, 2020 Assessment & Plan (1) Paroxysmal atrial flutter: 2. CAD-- known occluded RCA 3. History of severe mitral regurgitation status post mitral valve repair 4. Chronic sternal osteomyelitis--on suppressive antibiotics 5. Schizophrenia Remains in atrial flutter, now on p.o. diltiazem with heart rates averaging low 100s but rates up to 120-130s at times. She is largely asymptomatic. On exam appears well perfused without signs of heart failure. --Recommend increasing diltiazem to 180 mg daily --Continue metoprolol 25 mg bid --Continue Eliquis --OK to transfer back to [address] [place] [id number], cardiology will sign off --Followup in our office after 1-2 weeks after hospital discharge Admission and Anticipated Discharge Date Admission Date: October 08, 2020 Subjective Patient is feeling well, no acute concerns. Continues to have chest tenderness to palpation. No shortness of breath, orthopnea or PND. Telemetry reviewedremains in atrial flutter with heart rates in the averaging 90-low 100s this am but rates up to 120-130s Review of Systems Review of Systems: All systems reviewed & are unremarkable except as noted in HPI & below Physical Exam Physical Exam: General: Comfortable HEENT: Sclerae anicteric Lungs: Clear to auscultation bilaterally, no crackles or wheezes Cardiac: Irregular. No murmur,gallop or rub Vascular: 2+ radial Abdomen: Soft, nontender Extremities: Well perfused, no peripheral edema, varicose veins Neuro: Nonfocal Results & Data ([facility]) Vital Signs (Past 12 Hours) Vital Signs Temp Pulse Pulse Pulse Resp BP Pulse Ox 10/11/20 09:23 76 18 101/76 95 10/11/20 08:00 89 10/11/20 07:48 36.4 C L 92 H 18 90/55 L 97 10/11/20 03:00 36.6 C 116 H 18 102/55 L 96 10/11/20 01:06 103/71 10/11/20 00:20 87/62 L PG Care Time/CCT Total # of Minutes Spent Total Time Spent with Patient: Total time spent is greater than 50% in coordination of care (as documented) at patient's floor/unit and/or counseling patient: Coding Level of Care Code 07798 Subseq Hosp Care Lvl 2 Diagnoses Paroxysmal atrial flutter I48.92
[2020-10-11] MEDS: LORATADINE 10 MG TAB PO SCH (11:55)
[2020-10-11] MEDS ORDERED: SODIUM CHLORIDE 0.65% NA SOLN 45 ML (OCEAN) ONE (12:57)
--- NOTE | 2020-10-11 15:40 | Communication Note ---
Date of Service: October 11, 2020 Patient seen, chart reviewed, case discussed with treatment team. Patient continues to do well on the medical floors. Did have one episode of heart rate abnormality last night which required provider intervention. Patient reports her mood is stable. She denies any psychosis at this time. She is denying any audio or visual hallucinations. She is denying any paranoia. She states that she is feeling somewhat anxious as having have these medical problems as well as potentially facing a new living situation once discharged. She denies that this anxiety is to a level that it is distressing to her. Brief supportive therapy was offered to patient, and patient was agreeable to the plan to await disposition from medical team. Patient may return to psychiatry once medically cleared.
[2020-10-11] MEDS: ONDANSETRON INJ 2 MG/ML 2 ML VIAL IV PRN (17:15)
[2020-10-11] MEDS ORDERED: hydrOXYzine HCl 25 MG TAB PO STA (18:05)
[2020-10-11] MEDS: traZODone HCL 50 MG TAB PO PRN (20:41)
[2020-10-11] MEDS: SIMVASTATIN 40 MG TAB PO SCH (20:49)
--- NOTE | 2020-10-11 23:31 | Electrocardiogram Report ---
Test Reason : Blood Pressure : / mmHG Vent. Rate : 100 BPM Atrial Rate : 258 BPM P-R Int : 000 ms QRS Dur : 082 ms QT Int : 358 ms P-R-T Axes : -80 -18 -12 degrees QTc Int : 461 ms Atrial flutter with variable A-V block Low voltage QRS Inferior infarct (cited on or before 31-OCT-2010) Abnormal ECG When compared with ECG of 10-OCT-2020 05:34, No significant change Confirmed by Yaniv Hazel ([id number]) on 10/11/2020 11:30:51 PM Referred By: Matty Suggs Confirmed By:Yaniv Hazel
[2020-10-12] MEDS: LEVOTHYROXINE SODIUM 88 MCG TABLET PO SCH (06:12)
[2020-10-12] MEDS: ACETAMINOPHEN 325 MG TAB PO PRN ×2 (06:15→20:36)
[2020-10-12] MEDS: traMADol HCL 50 MG TABLET PO PRN (06:15)
[2020-10-12] MEDS: CHOLECALCIFEROL 1,000 UNITS 25 MCG TAB PO SCH (08:32)
[2020-10-12] MEDS: APIXABAN 5 MG TABLET PO SCH ×2 (08:32→20:38)
[2020-10-12] MEDS: GABAPENTIN 400 MG CAP PO SCH ×3 (08:32→20:39)
[2020-10-12] MEDS: QUEtiapine FUMARATE 200 MG TAB PO SCH ×2 (08:33→20:37)
[2020-10-12] MEDS: FLUTICASONE/VILANTEROL 100/25MCG 14 PUFFS/INHALER INH SCH (08:34)
[2020-10-12 09:34] LABS: BUN Creatinine Ratio 17.5 (10-20); Calcium 9.1 mg/dl (8.5-10.1); Creatinine Clr Calc Pharmacy 69.9 ml/min; Est GFR (African American) 92.1 ml/min; Est GFR (Non-African American) 79.5 ml/min; Potassium 4.3 mmol/L (3.5-5.1)
[2020-10-12] MEDS: METOPROLOL TARTRATE 50 MG TAB PO SCH ×2 (10:31→20:35)
[2020-10-12] MEDS: dilTIAZem HCL 180 MG CAPCR PO SCH (10:31)
[2020-10-12] MEDS: ASPIRIN 81 MG ECTAB PO SCH (10:31)
[2020-10-12] MEDS: SULFAMETHOXAZOLE/TRIMETHOPRIM DS 800/160MG TAB PO SCH ×2 (10:31→20:38)
[2020-10-12] MEDS: LORATADINE 10 MG TAB PO SCH (10:31)
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
[2020-10-12] MEDS ORDERED: METOPROLOL TARTRATE 50 MG TAB PO SCH (14:00)
[2020-10-12] MEDS ORDERED: TUBERCULIN SKIN TEST 5 TU in SYRINGE 0 ML ID ONE (15:00)
--- NOTE | 2020-10-12 19:23 | Psychiatric Progress Note ---
Date of Service October 12, 2020 Impression / Recommendations Impression Patient with schizophrenia transferred to the medical floor for atrial flutter currently under supervision and care of cardiology recently beta-blockers increased to maintain heart rates patient at this time has no psychiatric emergency psychiatric condition is stable. Will await medical clearance prior to returning to psychiatry. Inventory Assets Strengths: verbal Risk Factors Assessment Male: No : No Do You Have Access To A Gun?: No Protective Factors Assessment Supportive Family: Yes Good Rapport with Provider: Yes Interval History Chief Complaint "I am doing okay at most of my meals Review of Systems Notes Reports constipation , and decreased apatite Sleep Information Sleep Comments: sleeping well Subjective Subjective Patient was seen & assessed and interval progress on the medicine floor reviewed Patient reports feeling okay with current meds. ADmits to being worried about her cardiac state , but reports that her PCP said " its just a seat belt" . No psychiatric complaints at this time. Awaiting clearance to be transferred back to psych Physical Exam Psychiatric Orientation: alert, oriented to person and oriented to place Apperance: appropriately dressed Motor Behavior: steady gait and station and no abnormal motor movements Affect: euthymic affect Mood: + anxious mood; no depressed mood Thought Process: goal directed thought process Suicidal Thoughts: denies suicidal thoughts Homicidal Thoughts: denies homicidal thoughts Hallucinations: no auditory hallucinations Insight: good insight Judgement: good judgement Vital Signs (Past 24 Hours) Last Vital Signs Temp 36.9 C 10/12/20 15:04 Pulse 112 H 10/12/20 15:04 Resp 19 10/12/20 15:04 BP 97/65 L 10/12/20 15:04 Pulse Ox 94 10/12/20 15:04 Results & Data ([facility]) Laboratory Results Laboratory Results - last 24 hr 10/12/20 10/12/20 09:00 09:00 Sodium 138 Potassium 4.3 Chloride 105 Carbon Dioxide 30 Anion Gap 3.0 BUN 14 Creatinine 0.81 Est Cr Clr Drug Dosing 69.9 Est GFR ( Amer) 92.1 Est GFR (Non-Af Amer) 79.5 BUN/Creatinine Ratio 17.5 Glucose 107 H Calcium 9.1 Vitamin B12 513 Current Inpatient Medications Current Inpatient Medications: Current Inpatient Medications Acetaminophen (Acetaminophen 325 Mg Tab) 650 mg PO Q4H PRN PRN Reason: Pain or Fever Stop: 11/07/20 23:37 Last Admin: 10/12/20 06:15 Dose: 650 mg Documented by: Apixaban (Apixaban 5 Mg Tablet) 5 mg PO BID DUNIA Stop: 11/08/20 13:59 Last Admin: 10/12/20 08:32 Dose: 5 mg Documented by: Aspirin (Aspirin 81 Mg Ectab) 81 mg PO DAILY DUNIA Stop: 11/08/20 08:59 Last Admin: 10/12/20 10:31 Dose: 81 mg Documented by: Clonazepam (Clonazepam 0.5 Mg Tab) 0.5 mg PO DAILY PRN PRN Reason: Anxiety Stop: 11/08/20 08:59 Last Admin: 10/11/20 17:11 Dose: 0.5 mg Documented by: Dextrose (Dextrose 50% 50 Ml Syringe) 25 - 50 ml IV UD PRN; Protocol PRN Reason: Hypoglycemia Protocol Stop: 11/07/20 23:37 Diltiazem HCl (Diltiazem Hcl 180 Mg Capcr) 180 mg PO QAM DUNIA Stop: 11/11/20 08:59 Last Admin: 10/12/20 10:31 Dose: 180 mg Documented by: Fluticasone/Vilanterol (Fluticasone/Vilanterol 100/25mcg 14 Puffs/Inhaler) 1 puffs INH DAILY DUNIA Stop: 11/08/20 08:59 Last Admin: 10/12/20 08:34 Dose: 1 puffs Documented by: Gabapentin (Gabapentin 400 Mg Cap) 400 mg PO TID DUNIA Stop: 11/08/20 08:59 Last Admin: 10/12/20 14:16 Dose: 400 mg Documented by: Glucagon (Glucagon For Inj 1 Mg Vial) 1 mg SQ UD PRN; Protocol PRN Reason: Hypoglycemia Protocol Stop: 11/07/20 23:37 Glucose (Glucose 10 Tabs/Tube) 4 - 8 tabs PO UD PRN; Protocol PRN Reason: Hypoglycemia Protocol Stop: 11/07/20 23:37 Glucose (Glucose 40% Gel 15 Gm Tube) 15 - 30 gm PO UD PRN; Protocol PRN Reason: Hypoglycemia Protocol Stop: 11/07/20 23:37 Levothyroxine Sodium (Levothyroxine Sodium 88 Mcg Tablet) 88 mcg PO DAILYBB DUNIA Stop: 11/08/20 06:29 Last Admin: 10/12/20 06:12 Dose: 88 mcg Documented by: Loratadine (Loratadine 10 Mg Tab) 10 mg PO QAM DUNIA Stop: 11/10/20 11:29 Last Admin: 10/12/20 10:31 Dose: 10 mg Documented by: Metoprolol Tartrate (Metoprolol Tartrate 1 Mg/Ml Vial) 5 mg IV Q4 PRN PRN Reason: Tachycardia Stop: 11/08/20 11:59 Last Admin: 10/10/20 17:30 Dose: 5 mg Documented by: Metoprolol Tartrate (Metoprolol Tartrate 50 Mg Tab) 50 mg PO Q6H DUNIA Stop: 11/11/20 19:14 Miscellaneous (Carbohydrates For Hypoglycemia ) 15 - 30 gm PO UD PRN PRN Reason: Hypoglycemia Protocol Stop: 11/07/20 23:37 Miscellaneous (Ppd Check) 1 ea N/A Q48H ONE Stop: 10/14/20 15:01 Ondansetron HCl (Ondansetron Inj 2 Mg/Ml 2 Ml Vial) 4 mg IV Q6H PRN PRN Reason: Nausea Stop: 11/07/20 23:37 Last Admin: 10/11/20 17:15 Dose: 4 mg Documented by: Quetiapine Fumarate (Quetiapine Fumarate 200 Mg Tab) 200 mg PO QAM [facility] Stop: 11/08/20 11:59 Last Admin: 10/12/20 08:33 Dose: 200 mg Documented by: Quetiapine Fumarate (Quetiapine Fumarate 200 Mg Tab) 400 mg PO QPM DUNIA Stop: 11/08/20 20:59 Last Admin: 10/11/20 20:49 Dose: 400 mg Documented by: Simvastatin (Simvastatin 40 Mg Tab) 40 mg PO QPM DUNIA Stop: 11/08/20 20:59 Last Admin: 10/11/20 20:49 Dose: 40 mg Documented by: Tramadol HCl (Tramadol Hcl 50 Mg Tablet) 50 mg PO TID PRN PRN Reason: Moderate Pain Stop: 11/08/20 00:58 Last Admin: 10/12/20 06:15 Dose: 50 mg Documented by: Trazodone HCl (Trazodone Hcl 50 Mg Tab) 100 mg PO HS PRN PRN Reason: Sleep Stop: 11/08/20 01:10 Last Admin: 10/11/20 20:41 Dose: 100 mg Documented by: Trimethoprim/Sulfamethoxazole (Sulfamethoxazole/Trimethoprim Ds 800/160mg Tab) 1 tab PO Q12 DUNIA Stop: 11/21/20 20:59 Last Admin: 10/12/20 10:31 Dose: 1 tab Documented by: Vitamin D (Cholecalciferol 1,000 Units 25 Mcg Tab) 2,000 units PO DAILY DUNIA Stop: 11/08/20 08:59 Last Admin: 10/12/20 08:32 Dose: 2,000 units Documented by:
[2020-10-12] MEDS: traZODone HCL 50 MG TAB PO PRN (20:36)
[2020-10-12] MEDS: SIMVASTATIN 40 MG TAB PO SCH (20:37)
[2020-10-12] MEDS: DOCUSATE SODIUM 100 MG CAP PO PRN (20:43)
[2020-10-13] MEDS: METOPROLOL TARTRATE 50 MG TAB PO SCH ×4 (01:29→20:11)
[2020-10-13] MEDS: traMADol HCL 50 MG TABLET PO PRN ×2 (03:37→13:05)
[2020-10-13] MEDS: clonazePAM 0.5 MG TAB PO PRN (03:38)
[2020-10-13] MEDS ORDERED: SODIUM CHLORIDE 0.65% NA SOLN 45 ML (OCEAN) PRN (04:47)
[2020-10-13] MEDS: LEVOTHYROXINE SODIUM 88 MCG TABLET PO SCH (06:21)
[2020-10-13] MEDS: SODIUM CHLORIDE 0.65% NA SOLN 45 ML (OCEAN) PRN (06:22)
[2020-10-13] MEDS: GABAPENTIN 400 MG CAP PO SCH ×3 (08:37→20:10)
[2020-10-13] MEDS: ASPIRIN 81 MG ECTAB PO SCH (08:38)
[2020-10-13] MEDS: QUEtiapine FUMARATE 200 MG TAB PO SCH ×2 (08:38→20:10)
[2020-10-13] MEDS: CHOLECALCIFEROL 1,000 UNITS 25 MCG TAB PO SCH (08:38)
[2020-10-13] MEDS: APIXABAN 5 MG TABLET PO SCH ×2 (08:38→20:10)
[2020-10-13] MEDS: SULFAMETHOXAZOLE/TRIMETHOPRIM DS 800/160MG TAB PO SCH ×2 (08:38→20:10)
[2020-10-13] MEDS: dilTIAZem HCL 180 MG CAPCR PO SCH (08:38)
[2020-10-13] MEDS: LORATADINE 10 MG TAB PO SCH (08:38)
[2020-10-13] MEDS: FLUTICASONE/VILANTEROL 100/25MCG 14 PUFFS/INHALER INH SCH (08:39)
[2020-10-13] MEDS: DOCUSATE SODIUM 100 MG CAP PO PRN (08:44)
--- NOTE | 2020-10-13 10:13 | XRay Report ---
XR chest 2V PA/lateral CLINICAL HISTORY: new onset shortness of breath COMPARISON STUDY: Chest CT April 12, 2020. Chest radiograph October 08, 2020. FINDINGS: There are median sternotomy wires and a prosthetic mitral valve. Cardiac size is normal. Th ere is no pneumothorax. There are small bilateral pleural effusions. Interstitial thickening represen ts pulmonary edema. Mild right basilar opacity is present. IMPRESSION: Interval development of interstitial pulmonary edema and small bilateral pleural effusions. ACT 112: Negative or not required by law. Electronically signed by: Ky Purvis M.D. 10/13/2020 10:12 AM
[2020-10-13] MEDS: DIGOXIN 250 MCG in SYRINGE 9 ML IV SCH ×2 (11:06→17:33)
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
[2020-10-13] MEDS ORDERED: ALBUTEROL HFA 8 GM INHALER INH PRN (11:20)
[2020-10-13] MEDS ORDERED: FUROSEMIDE 20 MG in SYRINGE 0 ML IV ONE (11:45)
--- NOTE | 2020-10-13 12:37 | Cardiology Progress Note ---
Date of Service October 13, 2020 Assessment & Plan (1) Paroxysmal atrial flutter: 2. CAD-- known occluded RCA 3. History of severe mitral regurgitation status post mitral valve repair 4. Chronic sternal osteomyelitis--on suppressive antibiotics 5. Schizophrenia Patient remains in what appears to be primarily atrial flutter with variable conduction. Asymptomatic. Has been difficult to control on AV gladys agents. Agree with IV digoxin load Metoprolol increased to 4 times daily Can increase diltiazem further to 240 mg daily as BP allows Heart rates in the 110-120s and below are acceptable Long-term rhythm control complicated by patient's concerns regarding electrical cardioversion and limited antiarrhythmic options with structural heart disease and chronic antipsychotic use. Rhythm appears to be primarily atrial flutter and may be a candidate for flutter ablation. This option was discussed briefly with patient and she was not immediately opposed. Will discuss procedure further with Dr. Teague. Admission and Anticipated Discharge Date Admission Date: October 08, 2020 Subjective This morning Denies chest pain or shortness of breath currently. Some reports of shortness of breath overnight. Received one dose of IV Lasix for mild congestion on chest x- ray. Denies palpitations. Reports feeling general anxiety about racing heart. No other new concerns. Telemetry reviewedprimarily appears to be variable atrial flutter with heart rates in 120s to 130s Review of Systems Review of Systems: All systems reviewed & are unremarkable except as noted in HPI & below Physical Exam Physical Exam: General: Comfortable HEENT: Sclerae anicteric Lungs: Scant crackles at bases bilaterally Cardiac: Tachycardic, irregular irregular Vascular: 2+ radial Abdomen: Soft, nontender Extremities: Well perfused, no peripheral edema, varicose veins Neuro: Nonfocal Results & Data ([facility]) Vital Signs (Past 12 Hours) Vital Signs Temp Pulse Pulse Resp BP Pulse Ox 10/13/20 11:43 98.4 F 121 H 19 96/64 L 94 10/13/20 11:06 120 H 10/13/20 08:49 120/63 10/13/20 08:00 126 H 10/13/20 07:39 99.1 F 122 H 19 91/63 L 96 10/13/20 04:15 98.1 F 130 H 20 101/72 98 10/13/20 01:28 122 H 101/62 PG Care Time/CCT Total # of Minutes Spent Total Time Spent with Patient: Total time spent is greater than 50% in coordination of care (as documented) at patient's floor/unit and/or counseling patient: Coding Level of Care Code 78955 Subseq Hosp Care Lvl 3 Diagnoses Paroxysmal atrial flutter I48.92
[2020-10-13] MEDS ORDERED: hydrOXYzine HCl 25 MG TAB PO PRN (13:45)
[2020-10-13] MEDS: ACETAMINOPHEN 325 MG TAB PO PRN (15:24)
[2020-10-13] MEDS: SIMVASTATIN 40 MG TAB PO SCH (20:11)
[2020-10-14] MEDS: DIGOXIN 250 MCG in SYRINGE 9 ML IV SCH ×2 (01:00→06:32)
[2020-10-14] MEDS: METOPROLOL TARTRATE 50 MG TAB PO SCH ×2 (03:09→08:25)
[2020-10-14] MEDS: LEVOTHYROXINE SODIUM 88 MCG TABLET PO SCH (06:31)
[2020-10-14 07:41] LABS: BUN Creatinine Ratio 18.4 (10-20); Calcium 8.7 mg/dl (8.5-10.1); Creatinine Clr Calc Pharmacy 70.1 ml/min; Est GFR (African American) 92.1 ml/min; Est GFR (Non-African American) 79.5 ml/min; Magnesium 1.9 mg/dl (1.8-2.4)
[2020-10-14] MEDS: CHOLECALCIFEROL 1,000 UNITS 25 MCG TAB PO SCH (08:24)
[2020-10-14] MEDS: dilTIAZem HCL 180 MG CAPCR PO SCH (08:24)
[2020-10-14] MEDS: LORATADINE 10 MG TAB PO SCH (08:24)
[2020-10-14] MEDS: QUEtiapine FUMARATE 200 MG TAB PO SCH ×2 (08:25→21:47)
[2020-10-14] MEDS: ASPIRIN 81 MG ECTAB PO SCH (08:25)
[2020-10-14] MEDS: SULFAMETHOXAZOLE/TRIMETHOPRIM DS 800/160MG TAB PO SCH ×2 (08:25→21:55)
[2020-10-14] MEDS: GABAPENTIN 400 MG CAP PO SCH ×3 (08:25→21:43)
[2020-10-14] MEDS: APIXABAN 5 MG TABLET PO SCH ×2 (08:26→21:42)
[2020-10-14] MEDS: FLUTICASONE/VILANTEROL 100/25MCG 14 PUFFS/INHALER INH SCH (08:26)
[2020-10-14] MEDS ORDERED: METOPROLOL TARTRATE 25 MG TAB PO ONE (09:00)
--- NOTE | 2020-10-14 11:13 | Cardiology Progress Note ---
Date of Service October 14, 2020 Assessment & Plan (1) Paroxysmal atrial flutter: 2. CAD-- known occluded RCA 3. History of severe mitral regurgitation status post mitral valve repair 4. Chronic sternal osteomyelitis--on suppressive antibiotics 5. Schizophrenia Patient converted to sinus rhythm this morning. Continue current p.o. metoprolol, diltiazem Continue Eliquis Can discontinue aspirin Spoke to Dr. Teague regarding patient. He will discuss further with patient if interested in pursuing a flutter ablation to prevent future recurrences. Admission and Anticipated Discharge Date Admission Date: October 08, 2020 Subjective Denies chest pain but tired of telemetry box. Minimal shortness of breath with exertion. Denies palpitations. Telemetry reviewedconverted to sinus rhythm around 630 this morning. Review of Systems Review of Systems: All systems reviewed & are unremarkable except as noted in HPI & below Physical Exam Physical Exam: General: Comfortable HEENT: Sclerae anicteric Lungs: Minimally decreased at bases bilaterally Cardiac: Regular rate and rhythm Vascular: 2+ radial Abdomen: Soft, nontender Extremities: Well perfused, trivial right greater than left lower extremity edema Neuro: Nonfocal Results & Data ([facility]) Vital Signs (Past 12 Hours) Vital Signs Temp Pulse Pulse Resp BP Pulse Ox 10/14/20 08:21 98.8 F 79 20 112/50 L 94 10/14/20 08:00 79 10/14/20 06:32 82 10/14/20 03:08 98.6 F 88 14 100/63 90 10/14/20 01:00 95 H PG Care Time/CCT Total # of Minutes Spent Total Time Spent with Patient: Total time spent is greater than 50% in coordination of care (as documented) at patient's floor/unit and/or counseling patient: Coding Level of Care Code 92189 Subseq Hosp Care Lvl 3 Diagnoses Paroxysmal atrial flutter I48.92
--- NOTE | 2020-10-14 14:53 | Psychiatric Progress Note ---
Date of Service October 13, 2020 Impression / Recommendations Impression Patient with schizophrenia transferred to the medical floor for atrial flutter currently under supervision and care of cardiology recently beta-blockers increased to maintain heart rates patient at this time has no psychiatric emergency psychiatric condition is stable. Will await medical clearance prior to returning to psychiatry. 10/13/20 patient and on the medical floor remains psychiatrically stable. Patient only reports appropriate anxiety regarding upcoming medical procedures. Depending on discharge date planning patient at this time may be able to be discharged directly from the medical floor. Psychiatry appreciates excellent medical care provided to this patient Inventory Assets Strengths: verbal Risk Factors Assessment Male: No : No Do You Have Access To A Gun?: No Protective Factors Assessment Supportive Family: Yes Good Rapport with Provider: Yes Interval History Chief Complaint "[I am fine I am just worried about my heart]". Review of Systems Sleep Information Sleep Comments: sleeping well Subjective Subjective Patient was seen & assessed and interval progress reviewed, this patient's cardiology and hospitalist notes are reviewed. Right is aware of her current cardiac status. Patient reports that she has discussed this with her primary care doctor on the outside and he feels that she should be okay with the procedure. Patient reports fear of having in "static from my head giving me a shock" service writer advisor encourages patient that this this is unlikely. Chemical Tester gave patient some information regarding the process of cardioversion. Patient denies delusions patient denies hallucinations patient reports feeling that her stay on the medical floor has been very good" I like the nurses and the like me"" the food is better" patient denies suicidal thoughts. There is no evidence of active response to internal stimuli. She is alert and oriented. Physical Exam Psychiatric A+Ox3, euthymic affect Orientation: alert, oriented x 3, oriented to person and oriented to place Apperance: appropriately dressed Motor Behavior: steady gait and station and no abnormal motor movements Affect: euthymic affect Mood: + anxious mood; no depressed mood Thought Process: goal directed thought process Thought Content: + delusions Suicidal Thoughts: denies suicidal thoughts Homicidal Thoughts: denies homicidal thoughts Hallucinations: no auditory hallucinations, no visual hallucinations and no tactile hallucinations Estimated Intelligence: consistent with education level Insight: good insight Judgement: good judgement Vital Signs (Past 24 Hours) Last Vital Signs Temp 37.4 C 10/14/20 11:34 Pulse 65 10/14/20 11:34 Resp 18 10/14/20 11:34 BP 91/51 L 10/14/20 11:34 Pulse Ox 96 10/14/20 11:34 Physical exam of the hospitalist done 10/13 is noted Results & Data ([facility]) Laboratory Results Laboratory Results - last 24 hr 10/14/20 10/14/20 06:28 06:28 Sodium 140 Potassium 4.0 Chloride 106 Carbon Dioxide 31 Anion Gap 3.0 BUN 15 Creatinine 0.81 Est Cr Clr Drug Dosing 70.1 Est GFR ( Amer) 92.1 Est GFR (Non-Af Amer) 79.5 BUN/Creatinine Ratio 18.4 Glucose 97 Calcium 8.7 Magnesium 1.9 Folate 9.10 Current Inpatient Medications Current Inpatient Medications: Current Inpatient Medications Acetaminophen (Acetaminophen 325 Mg Tab) 650 mg PO Q4H PRN PRN Reason: Pain or Fever Stop: 11/07/20 23:37 Last Admin: 10/13/20 15:24 Dose: 650 mg Documented by: Albuterol (Albuterol Hfa 8 Gm Inhaler) 2 puffs INH Q4 PRN PRN Reason: Shortness Of Breath Stop: 11/12/20 11:59 Apixaban (Apixaban 5 Mg Tablet) 5 mg PO BID [facility] Stop: 11/08/20 13:59 Last Admin: 10/14/20 08:26 Dose: 5 mg Documented by: Aspirin (Aspirin 81 Mg Ectab) 81 mg PO DAILY DUNIA Stop: 11/08/20 08:59 Last Admin: 10/14/20 08:25 Dose: 81 mg Documented by: Clonazepam (Clonazepam 0.5 Mg Tab) 0.5 mg PO DAILY PRN PRN Reason: Anxiety Stop: 11/08/20 08:59 Last Admin: 10/13/20 03:38 Dose: 0.5 mg Documented by: Dextrose (Dextrose 50% 50 Ml Syringe) 25 - 50 ml IV UD PRN; Protocol PRN Reason: Hypoglycemia Protocol Stop: 11/07/20 23:37 Diltiazem HCl (Diltiazem Hcl 180 Mg Capcr) 180 mg PO QAM [facility] Stop: 11/11/20 08:59 Last Admin: 10/14/20 08:24 Dose: 180 mg Documented by: Docusate Sodium (Docusate Sodium 100 Mg Cap) 100 mg PO DAILY PRN PRN Reason: constipation Stop: 11/11/20 20:31 Last Admin: 10/13/20 08:44 Dose: 100 mg Documented by: Fluticasone/Vilanterol (Fluticasone/Vilanterol 100/25mcg 14 Puffs/Inhaler) 1 puffs INH DAILY DUNIA Stop: 11/08/20 08:59 Last Admin: 10/14/20 08:26 Dose: 1 puffs Documented by: Gabapentin (Gabapentin 400 Mg Cap) 400 mg PO TID [facility] Stop: 11/08/20 08:59 Last Admin: 10/14/20 14:13 Dose: 400 mg Documented by: Glucagon (Glucagon For Inj 1 Mg Vial) 1 mg SQ UD PRN; Protocol PRN Reason: Hypoglycemia Protocol Stop: 11/07/20 23:37 Glucose (Glucose 10 Tabs/Tube) 4 - 8 tabs PO UD PRN; Protocol PRN Reason: Hypoglycemia Protocol Stop: 11/07/20 23:37 Glucose (Glucose 40% Gel 15 Gm Tube) 15 - 30 gm PO UD PRN; Protocol PRN Reason: Hypoglycemia Protocol Stop: 11/07/20 23:37 Hydroxyzine HCl (Hydroxyzine Hcl 25 Mg Tab) 25 mg PO Q4 PRN PRN Reason: Allergic Symptoms Stop: 11/12/20 13:44 Last Admin: 10/13/20 14:00 Dose: 25 mg Documented by: Levothyroxine Sodium (Levothyroxine Sodium 88 Mcg Tablet) 88 mcg PO DAILYBB [facility] Stop: 11/08/20 06:29 Last Admin: 10/14/20 06:31 Dose: 88 mcg Documented by: Loratadine (Loratadine 10 Mg Tab) 10 mg PO QAM [facility] Stop: 11/10/20 11:29 Last Admin: 10/14/20 08:24 Dose: 10 mg Documented by: Metoprolol Tartrate (Metoprolol Tartrate 1 Mg/Ml Vial) 5 mg IV Q4 PRN PRN Reason: Tachycardia Stop: 11/08/20 11:59 Last Admin: 10/10/20 17:30 Dose: 5 mg Documented by: Metoprolol Tartrate (Metoprolol Tartrate 25 Mg Tab) 75 mg PO BID [facility] Stop: 11/13/20 20:59 Miscellaneous (Carbohydrates For Hypoglycemia ) 15 - 30 gm PO UD PRN PRN Reason: Hypoglycemia Protocol Stop: 11/07/20 23:37 Miscellaneous (Ppd Check) 1 ea N/A Q48H ONE Stop: 10/14/20 15:01 Last Admin: 10/14/20 14:31 Dose: 1 ea Documented by: Ondansetron HCl (Ondansetron Inj 2 Mg/Ml 2 Ml Vial) 4 mg IV Q6H PRN PRN Reason: Nausea Stop: 11/07/20 23:37 Last Admin: 10/11/20 17:15 Dose: 4 mg Documented by: Quetiapine Fumarate (Quetiapine Fumarate 200 Mg Tab) 200 mg PO QAM [facility] Stop: 11/08/20 11:59 Last Admin: 10/14/20 08:25 Dose: 200 mg Documented by: Quetiapine Fumarate (Quetiapine Fumarate 200 Mg Tab) 400 mg PO QPM [facility] Stop: 11/08/20 20:59 Last Admin: 10/13/20 20:10 Dose: 400 mg Documented by: Simvastatin (Simvastatin 40 Mg Tab) 40 mg PO QPM [facility] Stop: 11/08/20 20:59 Last Admin: 10/13/20 20:11 Dose: 40 mg Documented by: Sodium Chloride (Sodium Chloride 0.65% Na Soln 45 Ml ([place])) 2 sprays NA BID PRN PRN Reason: Congestion Stop: 11/12/20 03:42 Last Admin: 10/13/20 06:22 Dose: 2 sprays Documented by: Tramadol HCl (Tramadol Hcl 50 Mg Tablet) 50 mg PO TID PRN PRN Reason: Moderate Pain Stop: 11/08/20 00:58 Last Admin: 10/13/20 13:05 Dose: 50 mg Documented by: Trazodone HCl (Trazodone Hcl 50 Mg Tab) 100 mg PO HS PRN PRN Reason: Sleep Stop: 11/08/20 01:10 Last Admin: 10/12/20 20:36 Dose: 100 mg Documented by: Trimethoprim/Sulfamethoxazole (Sulfamethoxazole/Trimethoprim Ds 800/160mg Tab) 1 tab PO Q12 DUNIA Stop: 11/21/20 20:59 Last Admin: 10/14/20 08:25 Dose: 1 tab Documented by: Vitamin D (Cholecalciferol 1,000 Units 25 Mcg Tab) 2,000 units PO DAILY [facility] Stop: 11/08/20 08:59 Last Admin: 10/14/20 08:24 Dose: 2,000 units Documented by:
[2020-10-14] MEDS ORDERED: PPD CHECK ONE (15:00)
[2020-10-14] MEDS ORDERED: FUROSEMIDE 20 MG TAB PO ONE (18:18)
[2020-10-14] MEDS ORDERED: POTASSIUM CHLORIDE CRTAB 20 MEQ TABCR PO STA (18:18)
--- NOTE | 2020-10-14 18:20 | Hospitalist Progress Note ---
Date of Service October 14, 2020 Assessment & Plan (1) Atrial flutter with rapid ventricular response: resolved, converted back to NSR today. will cont CCB and BB but stop the digoxin. eliquis to be held for EP study by Dr Teague. Dr Teague hopeful he can perform a. flutter ablation to prevent her severe episodes of paroxysmal a. flutter. recent echo reviewed from 08/2020 (EF 55-60%, largely intact mitral valve s/p repair in past, etc) (2) Acute diastolic CHF (congestive heart failure): s/p lasix 20mg IV x 1 yesterday. still with mild JVD and mild WYATT - will give lasix 20mg po x 1. reassess tomorrow. (3) Constipation: add senna 2 tabs daily. cont colace 100mg BID. may need dulcolax suppos or enema. 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 appreciate psych input and med management. may transfer back to [facility] once a.fib/flutter is controlled. (10) Hypothyroidism: TSH 1.5 on 09/28/20. Cont synthroid. (11) Osteomyelitis of sternum: on chronic bactrim suppressive therapy (12) Schizophrenia: see above in "psychosis" of note - b12 level wnl (13) History of mitral valve repair: echo 08/2020 with non-severe mitral valve stenosis EF preserved (14) DVT prophylaxis: eliquis BID check labs am Admission and Anticipated Discharge Date Admission Date: October 08, 2020 Subjective tele - patient converted to NSR today she still c/o mild dyspnea w/ exertion no orthopnea no LE edema she is constipated and feels bloated - no BM in 2-3 days agreeable to EP study for possible ablation of flutter - to have this tomorrow Review of Systems Constitutional: no fever, no chills, no fatigue and no anorexia Respiratory: + dyspnea on exertion; no cough Cardiovascular: no chest pain Gastrointestinal: + bloating; no abdominal pain, no nausea and no vomiting Physical Exam Constitutional: no acute distress and no altered mental status ENMT: external ear and nose normal, oropharynx normal Respiratory: Auscultation: + rales (fine- bases ) Cardiovascular: Rate/Rhythm: regular rate and regular rhythm Heart Sounds: normal S1 and normal S2; no murmur Vessels: + JVD (mild), posterior tibial pulses present and dorsalis pedis pulses present Extremities: no edema Gastrointestinal (Abdomen): Inspection/Auscultation: + abdomen distended and + hypoactive bowel sounds Percussion/Palpation: abdomen nontender, no guarding and no hepatosplenomegaly Psychiatric: Orientation: alert and oriented x 3 Results & Data Results & Data ([facility]) Vital Signs (Past 12 Hours) Vital Signs Temp Pulse Pulse Resp BP Pulse Ox 10/14/20 15:00 66 10/14/20 14:58 36.9 C 64 20 111/58 L 94 10/14/20 11:34 37.4 C 65 18 91/51 L 96 10/14/20 08:21 37.1 C 79 20 112/50 L 94 10/14/20 08:00 79 10/14/20 06:32 82 Laboratory Results Laboratory Results - last 24 hr 10/14/20 10/14/20 06:28 06:28 Sodium 140 Potassium 4.0 Chloride 106 Carbon Dioxide 31 Anion Gap 3.0 BUN 15 Creatinine 0.81 Est Cr Clr Drug Dosing 70.1 Est GFR ( Amer) 92.1 Est GFR (Non-Af Amer) 79.5 BUN/Creatinine Ratio 18.4 Glucose 97 Calcium 8.7 Magnesium 1.9 Folate 9.10 PG Care Time/CCT Total # of Minutes Spent Total Time Spent with Patient: Total time spent is greater than 50% in coordination of care (as documented) at patient's floor/unit and/or counseling patient: Coding Level of Care Code 94466 Subseq Hosp Care Lvl 3 Diagnoses Atrial flutter with rapid ventricular response I48.92 Acute diastolic CHF (congestive heart failure) I50.31 Constipation K59.00 Atrial fibrillation with rapid ventricular response I48.91 Paroxysmal atrial flutter I48.92 HTN (hypertension) I10 Hyperlipidemia E78.5 COPD, moderate J44.9 Unspecified psychosis F29 Hypothyroidism E03.9 Osteomyelitis of sternum M86.9 Schizophrenia F20.9 Schizophrenia type: unspecified History of mitral valve repair Z98.890 DVT prophylaxis Z29.9 (1) Schizophrenia Schizophrenia type: unspecified Qualified Code(s): F20.9 - Schizophrenia, unspecified
[2020-10-14] MEDS: SENNA 8.6 MG TAB PO SCH (18:38)
[2020-10-14] MEDS: DOCUSATE SODIUM 100 MG CAP PO SCH (21:43)
[2020-10-14] MEDS: SIMVASTATIN 40 MG TAB PO SCH (21:46)
[2020-10-14] MEDS: METOPROLOL TARTRATE 25 MG TAB PO SCH (21:54)
[2020-10-14] MEDS: traZODone HCL 50 MG TAB PO PRN (22:03)
[2020-10-15] MEDS: clonazePAM 0.5 MG TAB PO PRN (01:33)
[2020-10-15] MEDS: SODIUM CHLORIDE 0.65% NA SOLN 45 ML (OCEAN) PRN (01:34)
[2020-10-15] MEDS: LEVOTHYROXINE SODIUM 88 MCG TABLET PO SCH (06:32)
[2020-10-15] MEDS: SENNA 8.6 MG TAB PO SCH (08:04)
[2020-10-15] MEDS: GABAPENTIN 400 MG CAP PO SCH ×3 (08:04→20:32)
[2020-10-15] MEDS: METOPROLOL TARTRATE 25 MG TAB PO SCH ×2 (08:04→20:31)
[2020-10-15] MEDS: CHOLECALCIFEROL 1,000 UNITS 25 MCG TAB PO SCH (08:04)
[2020-10-15] MEDS: LORATADINE 10 MG TAB PO SCH (08:05)
[2020-10-15] MEDS: QUEtiapine FUMARATE 200 MG TAB PO SCH ×2 (08:05→20:32)
[2020-10-15] MEDS: dilTIAZem HCL 180 MG CAPCR PO SCH (08:05)
[2020-10-15] MEDS: DOCUSATE SODIUM 100 MG CAP PO SCH ×2 (08:06→20:31)
[2020-10-15] MEDS: FLUTICASONE/VILANTEROL 100/25MCG 14 PUFFS/INHALER INH SCH (08:06)
[2020-10-15] MEDS: SULFAMETHOXAZOLE/TRIMETHOPRIM DS 800/160MG TAB PO SCH ×2 (08:13→20:30)
[2020-10-15 08:31] LABS: BUN Creatinine Ratio 19.1 (10-20); Calcium 8.8 mg/dl (8.5-10.1); Creatinine Clr Calc Pharmacy 71.9 ml/min; Est GFR (Non-African American) 81.9 ml/min; Potassium 3.8 mmol/L (3.5-5.1)
[2020-10-15] MEDS ORDERED: MIDAZOLAM HCL 5 MG/ML 1 ML VIAL ONE (14:22)
[2020-10-15] MEDS ORDERED: fentaNYL citrate 100 MCG/2 ML VIAL ONE (14:22)
--- NOTE | 2020-10-15 14:47 | Pre Anesthesia Assessment ---
Date of Service October 15, 2020 Pre Sedation Assessment Vital Signs Temp Pulse Pulse Resp BP Pulse Ox 10/15/20 14:04 58 L 17 104/59 L 95 10/15/20 11:32 37.1 C 60 18 103/57 L 96 10/15/20 08:00 73 10/15/20 07:40 37.2 C 95 H 18 100/48 L 95 10/15/20 05:18 37.2 C 66 14 102/54 L 94 10/15/20 00:16 94 10/14/20 23:41 37.2 C 69 20 109/63 90 10/14/20 22:20 73 10/14/20 21:41 37.4 C 71 20 127/74 10/14/20 15:00 66 10/14/20 14:58 36.9 C 64 20 111/58 L 94 Cardiovascular + bradycardic Respiratory + respiratory effort normal Pre-Sedation Airway Assessment Smoking Status: Current every day smoker Short, Thick Neck: No Thyromental Distance: > or= 3.5 Finger Breadths Oral Cavity: + WNL Mallampati Class: II ASA: ASA3 NPO Status Date of Last Intake of Fluids: 10/15/20 Time of Last Intake of Fluids: 10:00 Date of Last Intake of Solid Food: 10/14/20 Procedure Planning Contraindications for Sedation: none Current Medications Reviewed: Yes Notes The planned sedation has been discussed with the patient. Informed Consent was obtained. I have identified the patient, determined the appropriateness of sedation and have assessed the patient immediately prior to the procedure. All medicine(s) and interventions are by my order.
[2020-10-15] MEDS ORDERED: HEPARIN (PORCINE) 1000 UNIT/ML 10 ML (CATH LAB USE ONLY) ONE (14:49)
[2020-10-15] MEDS ORDERED: ACETAMINOPHEN 325 MG TAB PO PRN (16:43)
--- NOTE | 2020-10-15 16:45 | Post Anesthesia Assessment ---
Date of Service October 15, 2020 Post Sedation Assessment Vital Signs Temp Pulse Pulse Resp BP Pulse Ox 10/15/20 14:04 58 L 17 104/59 L 95 10/15/20 11:32 37.1 C 60 18 103/57 L 96 10/15/20 08:00 73 10/15/20 07:40 37.2 C 95 H 18 100/48 L 95 10/15/20 05:18 37.2 C 66 14 102/54 L 94 10/15/20 00:16 94 10/14/20 23:41 37.2 C 69 20 109/63 90 10/14/20 22:20 73 10/14/20 21:41 37.4 C 71 20 127/74 Recovery Score Activity: Moves 4 extremities Respiration: Deep Breath/Cough Circulation: +/-20% PreAnes Value Consciousness: Fully Awake Oxygen Saturation: > 92% On Room Air Discharge Sedation Level of Care: Fast Track Phase II Post Sedation Plan On clinical assessment, the patient appears to have tolerated the sedation without complications. Patient is recovering as anticipated. Patient will continue to be monitored by nursing and may be discharged when sedation discharge criteria are met per below protocol. Upon Completions of procedure up to 15 minutes continue every 5 minute vital signs and the P.A.R. score; then discharge to a Phase I or Fast Track to Phase II per the following guidelines: * Discharge Patient to appropriate Phase II area if PAR is 8 or greater or return to pre- procedure baseline. The post - procedure orders will be as directed. * If PAR score is less than 8 or not return to pre-procedure baseline then patient will follow Phase I monitoring till PAR is reached for Phase II. The Phase I may be done in procedure room or may call to secure a Phase I area. * If naloxone or flumazenil are used for reversal, hold in Phase I for continued monitoring from when last reversal dose was given for a minimum of 60 minutes or longer pending the nurse and/or physician discretion of patient condition before discharge to Phase II. Please call the Sedation Physician to re-evaluate and complete post-note for discharge to Phase II area. Do NOT discharge from procedure sedation or Phase 1 until post- sedation evaluation note is complete by procedure /sedation MD Sedation Discharge Instructions to be given to the patient at discharge to home.
--- NOTE | 2020-10-15 16:45 | Electrophysiology Report ---
Date of Service October 15, 2020 Electrophysiology Procedure Electrophysiology Procedure Report Procedure performed: Ablation of supraventricular tachycardia, complete electrophysiologic testing including pacing from the left atrium via the coronary sinus, 3 dimensional electro anatomical mapping Staff web publisher: Ga Teague MD Indication: The patient is a 60-year-old woman with a history of mitral valve repair who has been suffering from atrial flutter and rapid ventricular rate. She was advised to consider catheter based therapy for definitive control of the arrhythmia. Procedure detail: The patient was informed the risks benefits and alternatives to the intended procedure. She understood which proceed. She was taken to the electrophysiology suite in a fasting state. Conscious sedation was administered per protocol the patient was monitored electrocardiographically throughout today's procedure. The right femoral area was prepped and draped in usual sterile fashion. This area was anesthetized using subcutaneous menstruation of lidocaine solution. The right femoral vein was accessed using modified Seldinger technique and sheath were placed over guidewires at this site. The sheath was used facilitate passage of the cardiac catheters under fluoroscopic guidance. This included right ventricular, coronary sinus and ablation catheter in the right atrium. Patient's baseline conduction system was characterize. Patient was in sinus rhythm and this point three-dimensional electro anatomical mapping was performed. Lesions were then placed through the caval tricuspid isthmus in a power limited mode. Repeat electrophysiologic testing and electro anatomical mapping were subsequently performed in order to determine if there was block through the caval tricuspid isthmus. At the conclusion of the procedure the catheters and sheaths were removed. Hemostasis was achieved at the access site using manual pressure. The patient tolerated the procedure well. There were no immediate complications. Baseline intracardiac intervals Cycle length in nature and 1076 milliseconds Cycle length of the ventricle 1072 milliseconds ID interval 185 milliseconds QRS duration 104 milliseconds QT interval 423 milliseconds AH interval 99 milliseconds HV interval 30 milliseconds Av Wenckebach occurred at 460 milliseconds Av node effective refractory period was 400 milliseconds. Retrograde conduction was noted to be concentric Ablation: Ablation was carried out using a force sensing 3.5 mm irrigated radiofrequency ablation catheter. Electro anatomical mapping was used to guide ablation. Subsequent to ablation and 30 minutes after ablation electro anatomical mapping was performed and pacing was performed from both the medial and lateral sides of the caval tricuspid isthmus in order to confirm bidirectional block. Post ablation intervals Cycle length in the atrium 1111 milliseconds Cycle length in the ventricle 1106 milliseconds ID interval 200 milliseconds QRS duration 93 milliseconds QT interval 430 milliseconds AH interval 106 milliseconds HV interval 31 milliseconds Av Wenckebach occurred at 560 milliseconds Av node effective refractory period was 530 milliseconds Impression: Creation of bidirectional block through the caval tricuspid isthmus Normal baseline conduction intervals No evidence of accessory pathway conduction [facility] Electrophysiology codes EP Procedure 1: Electrophysiology: 43401 EPS and Ablation SVT Procedure 2: Electrophysiology: 99742 3D mapping Procedure 3: Electrophysiology: 24027-06 Comp EPS w/LA pacing PG Moderate Sedation Codes Moderate Sedation Codes Procedure 1: Sedation/Anesthesia: 22958 Mod Sedation by the same physician;Init15 Min Child Age 5 & Up Procedure 2: Sedation/Anesthesia: 66968 Mod Sedation by the same physician; Ea [id number] Minutes
[2020-10-15] MEDS: ASPIRIN 81 MG ECTAB PO SCH (17:11)
[2020-10-15] MEDS ORDERED: bisacodyL 10 MG SUPP PR STA (18:48)
[2020-10-15] MEDS ORDERED: EUCERIN CR 120 GM JAR EXT PRN (19:16)
[2020-10-15] MEDS: SIMVASTATIN 40 MG TAB PO SCH (20:30)
--- NOTE | 2020-10-15 21:28 | Hospitalist Progress Note ---
Date of Service October 15, 2020 Assessment & Plan (1) Atrial flutter with rapid ventricular response: resolved, converted back to NSR on 10/14/20. remains on CCB and BB; digoxin stopped. s/p EP study today with successful ablation procedure by Dr Teague - appreciate his assistance. resume eliquis when permissible with Dr Teague. recent echo reviewed from 08/2020 (EF 55-60%, largely intact mitral valve s/p repair in past, etc) (2) Acute diastolic CHF (congestive heart failure): resolved s/p IV and PO lasix earlier this week - looks euvolemic today. (3) Constipation: cont senna, colace. give dulcolax suppos x 1 today - very distended on exam. (4) Atrial fibrillation with rapid ventricular response: resolved, back in NSR see above (5) Paroxysmal atrial flutter: as above s/p a flutter ablation today (6) HTN (hypertension): Bps are low-normal in setting of BB and CCB therapy for a.fib/flutter May need to stop 1 or more meds. trend for now. 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 appreciate psych input and med management. patient to be d/c to pen[facility]iary [facility] in [place] at time of discharge from hospital. (10) Hypothyroidism: TSH 1.5 on 09/28/20. Cont synthroid. (11) Osteomyelitis of sternum: on chronic bactrim suppressive therapy (12) Schizophrenia: see above in "psychosis" of note - b12 level wnl (13) History of mitral valve repair: echo 08/2020 with non-severe mitral valve stenosis EF preserved (14) DVT prophylaxis: eliquis BID on hold s/p EP study today check labs am progressing nicely Admission and Anticipated Discharge Date Admission Date: October 08, 2020 Subjective tele overnight - NSR; no PAF s/p EP study today with successful ablation procedure I saw patient post-EP study her only complaint was that of constipation and abdominal discomfort from such keeps stating to me "I'm going to eat more prunes - I want to do it naturally" no chest pain no dyspnea or cough Review of Systems Constitutional: no fatigue and no anorexia Respiratory: no cough Cardiovascular: no chest pain Gastrointestinal: no abdominal pain, no nausea and no vomiting Physical Exam Constitutional: no acute distress and no altered mental status ENMT: external ear and nose normal, oropharynx normal Respiratory: normal respiratory effort, lungs clear to auscultation Cardiovascular: Rate/Rhythm: regular rate and regular rhythm Heart Sounds: normal S1 and normal S2; no murmur Vessels: posterior tibial pulses present and dorsalis pedis pulses present; no JVD Extremities: no edema Gastrointestinal (Abdomen): Inspection/Auscultation: + abdomen distended and + hypoactive bowel sounds Percussion/Palpation: abdomen nontender, no guarding and no hepatosplenomegaly Psychiatric: Orientation: alert and oriented x 3 Results & Data Results & Data ([facility]) Vital Signs (Past 12 Hours) Vital Signs Temp Pulse Pulse Resp BP Pulse Ox 10/15/20 18:59 36.8 C 63 20 116/70 93 10/15/20 18:29 69 12 118/60 96 10/15/20 17:59 70 12 97/51 L 95 10/15/20 17:29 63 12 120/57 L 95 10/15/20 17:14 61 12 118/59 L 96 10/15/20 16:59 67 12 122/56 L 95 10/15/20 16:44 36.8 C 65 12 120/65 96 10/15/20 14:04 58 L 17 104/59 L 95 10/15/20 11:32 37.1 C 60 18 103/57 L 96 Laboratory Results Laboratory Results - last 24 hr 10/15/20 10/15/20 10/15/20 07:37 13:06 13:06 Sodium 140 Potassium 3.8 Chloride 104 Carbon Dioxide 30 Anion Gap 6.0 BUN 15 Creatinine 0.79 Est Cr Clr Drug Dosing 71.9 Est GFR ( Amer) 95.0 Est GFR (Non-Af Amer) 81.9 BUN/Creatinine Ratio 19.1 Glucose 96 Calcium 8.8 COVID-19 Eval Order Covid19 at [facility] SARS-CoV-2 (PCR) NEGATIVE PG Care Time/CCT Total # of Minutes Spent Total Time Spent with Patient: Total time spent is greater than 50% in coordination of care (as documented) at patient's floor/unit and/or counseling patient: Coding Level of Care Code 97313 Subseq Hosp Care Lvl 2 Diagnoses Atrial flutter with rapid ventricular response I48.92 Acute diastolic CHF (congestive heart failure) I50.31 Constipation K59.00 Atrial fibrillation with rapid ventricular response I48.91 Paroxysmal atrial flutter I48.92 HTN (hypertension) I10 Hyperlipidemia E78.5 COPD, moderate J44.9 Unspecified psychosis F29 Hypothyroidism E03.9 Osteomyelitis of sternum M86.9 Schizophrenia F20.9 Schizophrenia type: unspecified History of mitral valve repair Z98.890 DVT prophylaxis Z29.9 (1) Schizophrenia Schizophrenia type: unspecified Qualified Code(s): F20.9 - Schizophrenia, unspecified
[2020-10-16] MEDS: LEVOTHYROXINE SODIUM 88 MCG TABLET PO SCH (05:51)
[2020-10-16] MEDS: SENNA 8.6 MG TAB PO SCH (08:28)
[2020-10-16] MEDS: SULFAMETHOXAZOLE/TRIMETHOPRIM DS 800/160MG TAB PO SCH ×2 (08:28→20:09)
[2020-10-16] MEDS: dilTIAZem HCL 180 MG CAPCR PO SCH (08:29)
[2020-10-16] MEDS: CHOLECALCIFEROL 1,000 UNITS 25 MCG TAB PO SCH (08:29)
[2020-10-16] MEDS: QUEtiapine FUMARATE 200 MG TAB PO SCH ×2 (08:29→20:08)
[2020-10-16] MEDS: METOPROLOL TARTRATE 25 MG TAB PO SCH ×2 (08:29→20:07)
[2020-10-16] MEDS: FLUTICASONE/VILANTEROL 100/25MCG 14 PUFFS/INHALER INH SCH (08:29)
[2020-10-16] MEDS: LORATADINE 10 MG TAB PO SCH (08:29)
[2020-10-16] MEDS: GABAPENTIN 400 MG CAP PO SCH ×3 (08:29→20:07)
[2020-10-16] MEDS: DOCUSATE SODIUM 100 MG CAP PO SCH ×2 (08:29→20:06)
[2020-10-16] MEDS: ASPIRIN 81 MG ECTAB PO SCH (08:29)
[2020-10-16 10:03] LABS: Hematocrit (blood only) 25.9 % (37-47); Hemoglobin 8.7 g/dL (12.0-16.0); Mean Corpuscular Hemoglobin 32.1 pg (25-34); Mean Corpuscular Hgb Conc 33.6 g/dL (32-36); Mean Corpuscular Volume 95.6 fL (80-100); Mean Platelet Volume 10.7 fL (7.4-10.4); Platelet Count 196 K/uL (130-400); RDW Coefficient of Variation 14.4 % (11.5-14.5); RDW Standard Deviation 49.7 fL (36.4-46.3); Red Blood Count 2.71 M/uL (4.2-5.4); White Blood Count 9.46 K/uL (4.8-10.8)
[2020-10-16 10:28] LABS: Calcium 8.3 mg/dl (8.5-10.1); Creatinine Clr Calc Pharmacy 68.3 ml/min; Est GFR (African American) 93.5 ml/min; Est GFR (Non-African American) 80.7 ml/min
--- NOTE | 2020-10-16 11:51 | Cardiology Progress Note ---
Date of Service October 16, 2020 Assessment & Plan (1) Paroxysmal atrial flutter: 2. CAD-- known occluded RCA 3. History of severe mitral regurgitation status post mitral valve repair 4. Chronic sternal osteomyelitis--on suppressive antibiotics 5. Schizophrenia The patient underwent electrophysiologic testing and ablation for atrial flutter yesterday. She has maintained sinus rhythm. She apparently had some access site bleeding when using the commode yesterday evening. Unclear how much bleeding there was. No evidence of bleeding or hematoma currently. I think if she is ambulatory without evidence of bleeding she could be safely discharged from a cardiac standpoint. Also, if she is ambulatory without evidence of bleeding I would resume her Eliquis. She does not require aspirin in addition to Eliquis. Admission and Anticipated Discharge Date Admission Date: October 08, 2020 Subjective This morning patient claims to be feeling well. She did report some general aches and pains. Nothing acute or new. She was somewhat concerned about some bleeding from her access site in the right groin last evening. She does report sitting up to eat breakfast and being ambulatory to the commode. Review of Systems Review of Systems: Per HPI Physical Exam Physical Exam: General: Comfortable HEENT: Sclerae anicteric Lungs: Normal respiratory effort Cardiac: Regular rate and rhythm Extremities: Right groin access site without hematoma or evidence of bleeding. Neuro: Nonfocal Results & Data ([facility]) Vital Signs (Past 12 Hours) Vital Signs Temp Pulse Pulse Pulse Resp BP Pulse Ox 10/16/20 11:38 36.9 C 100 H 19 101/78 96 10/16/20 08:00 64 10/16/20 07:20 36.8 C 60 17 90/62 L 98 10/16/20 05:51 62 110/53 L 10/16/20 05:46 64 10/16/20 03:09 37.9 C H 64 18 89/51 L 92 Laboratory Results Abnormal Lab Results 10/15/20 10/15/20 10/16/20 13:06 13:06 09:31 WBC 9.46 RBC 2.71 L Hgb 8.7 L Hct 25.9 L MCV 95.6 MCH 32.1 MCHC 33.6 RDW Std Deviation 49.7 H RDW Coeff of Samreen 14.4 Plt Count 196 MPV 10.7 H Sodium Potassium Chloride Carbon Dioxide Anion Gap BUN Creatinine Est Cr Clr Drug Dosing Est GFR ( Amer) Est GFR (Non-Af Amer) BUN/Creatinine Ratio Glucose Calcium COVID-19 Eval Order Cov[address]19 [address] [facility] SARS-CoV-2 (PCR) NEGATIVE 10/16/20 09:31 WBC RBC Hgb Hct MCV MCH MCHC RDW Std Deviation RDW Coeff of Samreen Plt Count MPV Sodium 137 Potassium 4.0 Chloride 105 Carbon Dioxide 28 Anion Gap 4.0 BUN 17 Creatinine 0.80 Est Cr Clr Drug Dosing 68.3 Est GFR ( Amer) 93.5 Est GFR (Non-Af Amer) 80.7 BUN/Creatinine Ratio 21.0 H Glucose 161 H Calcium 8.3 L COVID-19 Eval Order SARS-CoV-2 (PCR) PG Care Time/CCT Total # of Minutes Spent Total Time Spent with Patient: Total time spent is greater than 50% in coordination of care (as documented) at patient's floor/unit and/or counseling patient: Coding Level of Care Code 61379 Subseq Hosp Care Lvl 2 Diagnoses Paroxysmal atrial flutter I48.92
--- NOTE | 2020-10-16 12:59 | Electrocardiogram Report ---
Test Reason : Blood Pressure : / mmHG Vent. Rate : 056 BPM Atrial Rate : 056 BPM P-R Int : 166 ms QRS Dur : 096 ms QT Int : 454 ms P-R-T Axes : 062 -03 021 degrees QTc Int : 438 ms Sinus bradycardia Possible Inferior infarct (cited on or before 31-OCT-2010) Abnormal ECG When compared with ECG of 11-OCT-2020 00:57, Sinus rhythm has replaced Atrial flutter Vent. rate has decreased BY [address] no longer depressed in Inferior leads ST no longer depressed in Anterior leads Nonspecific T wave abnormality has replaced inverted T waves in Inferior leads Confirmed by Ga Teague ([id number]) on 10/16/2020 12:59:29 PM Referred By: Matty Suggs Confirmed By:Adalid Teague
[2020-10-16 13:52] LABS: Hematocrit (blood only) 27.4 % (37-47); Hemoglobin 9.1 g/dL (12.0-16.0)
--- NOTE | 2020-10-16 19:43 | Hospitalist Progress Note ---
Date of Service October 16, 2020 Assessment & Plan (1) Acute blood loss anemia: 2nd to bleeding from femoral vein puncture site for EP study. H/H dropped into 8's this am. Repeat Hb stable. No need for PRBCs at this time. Discussed w/ patient we need to avoid straining at stool and excessive activity so that further bleeding dose not occur. Discussed the above with Dr Teague. Cont to hold eliquis. (2) Low grade fever: Temp 37.9 last night. Temp 37.6 this evening. Cause?? Check CBC, sed rate, crp in am. U/a unremarkable. No obvious pneumonia on CXR. Check abd x-ray for ileus, etc. COVID neg x 2. Due to chronic sternal osteomyelitis?? Consider blood cultures with temp spike >38. (3) Atrial flutter with rapid ventricular response: resolved, converted back to NSR on 10/14/20. remains on CCB and BB; digoxin stopped. s/p EP study 10/15/20 with successful ablation procedure by Dr Teague - appreciate his assistance. resume eliquis when permissible with Dr Teague. recent echo reviewed from 08/2020 (EF 55-60%, largely intact mitral valve s/p repair in past, etc) (4) Acute diastolic CHF (congestive heart failure): 2nd to rapid a flutter/fib. resolved s/p IV and PO lasix earlier this week. still w/ occasional WYATT - consider another dose of PO lasix. (5) Constipation: cont senna, colace. add miralax. check x-rays, r/o ileus in setting of procedures, etc. (6) Atrial fibrillation with rapid ventricular response: resolved, back in NSR see above (7) Paroxysmal atrial flutter: as above s/p a flutter ablation today (8) HTN (hypertension): Bps are low-normal in setting of BB and CCB therapy for a.fib/flutter May need to stop 1 or more meds or lower the doses. trend for now. acute blood loss anemia certainly caused some depression in BP overnight. (9) Hyperlipidemia: Continue simvastatin (10) COPD, moderate: Continue budesonide-formoterol No exacerbation at this time COVID neg x 2 (11) Unspecified psychosis: 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 Cont seroquel per psych. appreciate psych input and med management. patient to be d/c to penitentiary setting in [place] at time of discharge from hospital. (12) Hypothyroidism: TSH 1.5 on 09/28/20. Cont synthroid. (13) Osteomyelitis of sternum: on chronic bactrim suppressive therapy see above in "low grade fever" (14) Schizophrenia: see above in "psychosis" of note - b12 level wnl (15) History of mitral valve repair: echo 08/2020 with non-severe mitral valve stenosis EF preserved (16) DVT prophylaxis: eliquis BID on hold s/p EP study and femoral vein bleeding from puncture site check labs am Admission and Anticipated Discharge Date Admission Date: October 08, 2020 Subjective patient continues in NSR overnight patient was trying to have a stool admitted she was straining only had a small bm w/ such during the bowel movement she bled from the right groin femoral vein puncture site from EP study bleeding ultimately resolved she cannot quantitate the amount but "it was a lot" no bleeding since per staff only mild soreness of right groin she c/o mild soreness of sternum "from my infection" eating fine still refusing suppository for severe constipation she did note feeling warm last pm when her temp was 37.9 no chills Review of Systems Constitutional: + fever; no chills, no fatigue and no anorexia Respiratory: no cough, no dyspnea and no pain on inspiration Cardiovascular: as per Subjective / HPI and + chest pain; no orthopnea and no edema Gastrointestinal: + bloating and + constipation; no abdominal pain, no nausea and no vomiting Genitourinary: no dysuria Musculoskeletal: no joint pain Integumentary: no rash Physical Exam Constitutional: no acute distress and no altered mental status ENMT: external ear and nose normal, oropharynx normal Respiratory: Auscultation: + rales (fine- bases; improved from prior exams); no wheezes Cardiovascular: Rate/Rhythm: regular rate and regular rhythm Heart Sounds: normal S1 and normal S2; no murmur Vessels: posterior tibial pulses present and dorsalis pedis pulses present; no JVD Extremities: no edema Gastrointestinal (Abdomen): Inspection/Auscultation: + abdomen distended and + hypoactive bowel sounds Percussion/Palpation: abdomen nontender, no guarding and no hepatosplenomegaly Skin: right groin - minimal swelling over prior femoral vein site; no hematoma; negative thomson-turners sign on right flank Psychiatric: Orientation: alert and oriented x 3 Thought Content: + delusions Results & Data Results & Data ([facility]) Vital Signs (Past 12 Hours) Vital Signs Temp Pulse Pulse Pulse Resp BP Pulse Ox 10/16/20 19:12 37.6 C H 64 18 107/67 99 10/16/20 16:00 64 10/16/20 11:38 36.9 C 100 H 19 101/78 96 10/16/20 08:00 64 Laboratory Results Laboratory Results - last 24 hr 10/16/20 10/16/20 10/16/20 09:31 09:31 13:29 WBC 9.46 RBC 2.71 L Hgb 8.7 L 9.1 L Hct 25.9 L 27.4 L MCV 95.6 MCH 32.1 MCHC 33.6 RDW Std Deviation 49.7 H RDW Coeff of Samreen 14.4 Plt Count 196 MPV 10.7 H Sodium 137 Potassium 4.0 Chloride 105 Carbon Dioxide 28 Anion Gap 4.0 BUN 17 Creatinine 0.80 Est Cr Clr Drug Dosing 68.3 Est GFR ( Amer) 93.5 Est GFR (Non-Af Amer) 80.7 BUN/Creatinine Ratio 21.0 H Glucose 161 H Calcium 8.3 L PG Care Time/CCT Total # of Minutes Spent Total Time Spent with Patient: Total time spent is greater than 50% in coordination of care (as documented) at patient's floor/unit and/or counseling patient: Coding Level of Care Code 68823 Subseq Hosp Care Lvl 3 Diagnoses Acute blood loss anemia D62 Low grade fever R50.9 Atrial flutter with rapid ventricular response I48.92 Acute diastolic CHF (congestive heart failure) I50.31 Constipation K59.00 Atrial fibrillation with rapid ventricular response I48.91 Paroxysmal atrial flutter I48.92 HTN (hypertension) I10 Hyperlipidemia E78.5 COPD, moderate J44.9 Unspecified psychosis F29 Hypothyroidism E03.9 Osteomyelitis of sternum M86.9 Schizophrenia F20.9 Schizophrenia type: unspecified History of mitral valve repair Z98.890 DVT prophylaxis Z29.9 (1) Schizophrenia Schizophrenia type: unspecified Qualified Code(s): F20.9 - Schizophrenia, unspecified
[2020-10-16] MEDS: SIMVASTATIN 40 MG TAB PO SCH (20:09)
[2020-10-16 20:27] LABS: Appearance Urine Clear (Clear); Bacteria Urine Automated Negative (Negative); Bilirubin Urine Negative (Negative); Blood Urine 1+ (Negative); Color Urine Yellow; Glucose Urine UA Negative (Negative); Ketones Urine Negative (Negative); Leukocyte Esterase Urine Negative (Negative); Nitrite Urine Negative (Negative); Protein Urine Negative (Negative); RBC Urine Automated 0-4 /hpf (0-4); Specific Gravity Urine 1.013 (1.000-1.030); Urobilinogen Urine Negative (Negative); pH Urine 6.5 (4.5-7.5)
[2020-10-17] MEDS: LEVOTHYROXINE SODIUM 88 MCG TABLET PO SCH (05:51)
--- NOTE | 2020-10-17 07:57 | XRay Report ---
CHEST AND ABDOMEN 2 VIEWS HISTORY: low grade fever, abd distension COMPARISON: Chest 10/13/2020. FINDINGS: No pneumothorax. Poststernotomy changes. The heart remains borderline enlarged. Slight impr ovement in the mild interstitial pulmonary edema and small bilateral pleural effusions. A cardiac fuad ve prosthesis is again noted. No pneumoperitoneum. No pneumatosis. Prior cholecystectomy. Moderate we ll-formed stool seen throughout the colon. There are surgical clips within the left inguinal region. No dilated loops of bowel to suggest an obstruction. No renal or ureteral calculi. IMPRESSION: 1. Slight improvement in the mild interstitial pulmonary edema and small bilateral pleural fusions. 2. No evidence for bowel obstruction. 3. Moderate well-formed stool within the colon. ACT 112: Negative or not required by law. Electronically signed by: Ritesh Castillo M.D. 10/17/2020 7:55 AM
[2020-10-17] MEDS: DOCUSATE SODIUM 100 MG CAP PO SCH ×2 (08:08→19:36)
[2020-10-17] MEDS: ASPIRIN 81 MG ECTAB PO SCH (08:08)
[2020-10-17] MEDS: dilTIAZem HCL 180 MG CAPCR PO SCH (08:08)
[2020-10-17] MEDS: CHOLECALCIFEROL 1,000 UNITS 25 MCG TAB PO SCH (08:08)
[2020-10-17] MEDS: SENNA 8.6 MG TAB PO SCH (08:08)
[2020-10-17] MEDS: GABAPENTIN 400 MG CAP PO SCH ×3 (08:08→19:37)
[2020-10-17] MEDS: LORATADINE 10 MG TAB PO SCH (08:08)
[2020-10-17] MEDS: METOPROLOL TARTRATE 25 MG TAB PO SCH ×2 (08:09→19:38)
[2020-10-17] MEDS: SULFAMETHOXAZOLE/TRIMETHOPRIM DS 800/160MG TAB PO SCH ×2 (08:09→19:40)
[2020-10-17] MEDS: FLUTICASONE/VILANTEROL 100/25MCG 14 PUFFS/INHALER INH SCH (08:09)
[2020-10-17] MEDS: QUEtiapine FUMARATE 200 MG TAB PO SCH ×2 (08:09→19:39)
[2020-10-17] MEDS ORDERED: FUROSEMIDE 20 MG TAB PO ONE (09:30)
[2020-10-17 09:38] LABS: Hematocrit (blood only) 28.1 % (37-47); Hemoglobin 9.3 g/dL (12.0-16.0); Mean Corpuscular Hemoglobin 31.8 pg (25-34); Mean Corpuscular Hgb Conc 33.1 g/dL (32-36); Mean Corpuscular Volume 96.2 fL (80-100); Mean Platelet Volume 10.1 fL (7.4-10.4); Platelet Count 209 K/uL (130-400); RDW Coefficient of Variation 14.5 % (11.5-14.5); RDW Standard Deviation 50.9 fL (36.4-46.3); Red Blood Count 2.92 M/uL (4.2-5.4); White Blood Count 8.94 K/uL (4.8-10.8)
[2020-10-17] MEDS: POLYETHYLENE (MIRALAX) 17 GM PACK PO SCH ×2 (09:41→14:14)
[2020-10-17] MEDS ORDERED: OPTIRAY 300 100mL IV ONE (10:59)
[2020-10-17] MEDS: levoFLOXacin 750 MG TAB PO SCH (14:14)
[2020-10-17] MEDS: ADVANCED PROBIOTIC 1250 MG CAPSULE PO SCH (14:14)
--- NOTE | 2020-10-17 14:54 | CT Scan Report ---
CT chest diagnostic wo con CLINICAL HISTORY: h/o sternal osteomyelitis; elevated ESR; fever, CP COMPARISON STUDY: April 12, 2020 CT DOSE: 240.78 mGy.cm TECHNIQUE: CT of the thorax was performed from the thoracic inlet to the lung bases. Images are revi ewed in the axial, sagittal, and coronal planes. IV contrast was not administered for this examinatio n. A dose lowering technique was utilized adhering to the principles of ALARA. FINDINGS: There is no axillary, supra clavicle or internal mammary lymphadenopathy seen. Mild interval enlargement of the paratracheal lymph node now measuring 1.0 cm in short axis, previous ly it was measured 0.6 cm in size. 1.2 cm APV in the lymph node is new since prior (). 1.0 cm lewis bcarinal lymph node is also more conspicuous than on prior study. Visualized portion of thyroid gland shows no evidence of focal lesion show decrease in attenuation of thyroid parenchyma. Esophagus is normal. Heart is normal in size without evidence of pericardial effusion. Mitral ring is seen. Severe calcifi cations of the [place] coronary arteries. Status post CABG. Tracheobronchial tree is patent. Interval development of consolidative opacity within left upper lobe . Also patchy infiltrates are seen within the right upper and lower lobes. Interval development of moderate bilateral pleural effusion associated with atelectasis of posterior aspect of bilateral lower lobes. Limited evaluation of upper abdominal viscera shows no evidence of acute abnormalities. Pancreas is a trophic. Evaluation of osseous structures shows sternotomy changes without evidence of acute abnormalities. Interval development of compression fracture deformities within T8 and T9 associated with sclerosis a nd large Schmorl nodes. No evidence of posterior element involvement. IMPRESSION: 1. Healed sternotomy defect. No evidence of acute abnormalities within the sternal. Sternotomy wires are again seen. 2. Interval development of compression fracture deformities of T8 and T9 vertebra. Further evaluatio n with MRI of the thoracic spine might be considered. 3. Interval development of multifocal infiltrates predominantly within bilateral upper lobes likely represent pneumonia. Moderate pleural effusion also seen bilaterally. Short-term follow-up in 4-6 wee ks is recommended to document resolution. ACT 112: Positive. There are findings on this exam that require communication between the performing entity and the patient following Patient Test Result Information Act ([place] Act 112) guidelines. The above report was generated using voice recognition software. It may contain grammatical, syntax o r spelling errors. Electronically signed by: Abigail Plaza DO 10/17/2020 2:53 PM
--- NOTE | 2020-10-17 17:39 | Psychiatric Progress Note ---
Date of Service October 17, 2020 Impression / Recommendations Impression 10/17/20-remains psychiatrically stable at this time through 4 signed for outpatient treatment patient has no immediate psychiatric issues and is cleared to outpatient psychiatry treatment with ongoing program at this time Patient with schizophrenia transferred to the medical floor for atrial flutter currently under supervision and care of cardiology recently beta-blockers increased to maintain heart rates patient at this time has no psychiatric emergency psychiatric condition is stable. Will await medical clearance prior to returning to psychiatry. 10/13/20 patient and on the medical floor remains psychiatrically stable. Patient only reports appropriate anxiety regarding upcoming medical procedures. Depending on discharge date planning patient at this time may be able to be discharged directly from the medical floor. Psychiatry appreciates excellent medical care provided to this patient Inventory Assets Strengths: verbal Risk Factors Assessment Male: No : No Do You Have Access To A Gun?: No Protective Factors Assessment Supportive Family: Yes Good Rapport with Provider: Yes Interval History Chief Complaint "[I now have pneumonia]". Review of Systems Sleep Information Sleep Comments: sleeping well Subjective Subjective Ms. Juliana Maddox is a 60-year-old female with a long history of schizophrenia well known to psychiatric services as she was in psychiatry prior to being transferred to the medical team with atrial flutter Currently under supervision of both cardiology pulmonology and hospitalist all records have been reviewed patient at this time has no psychiatric emergency psychiatric condition is stable. Patient denies suicidal thoughts homicidal thoughts hallucinations auditory or visual she is able to maintain and engage in conversation she self-reports her pneumonia which is confirmed by review of the chart she is looking forward to outpatient treatment and going to her program. Procedures Performed Operation Date: 10/15/20 14:00 Actual Procedures p EPS + Ablation for SVT Flutter - Kit Teague MD s 3D Mapping (Carto) - Kit Teague MD s LA Pacing (Add-On) - Kit Teague MD Physical Exam Psychiatric A+Ox3, euthymic affect Orientation: alert, oriented x 3, oriented to person and oriented to place Apperance: appropriately dressed Motor Behavior: steady gait and station and no abnormal motor movements Affect: euthymic affect Mood: + anxious mood; no depressed mood Thought Process: goal directed thought process Thought Content: + delusions Suicidal Thoughts: denies suicidal thoughts Homicidal Thoughts: denies homicidal thoughts Hallucinations: no auditory hallucinations, no visual hallucinations and no tac tile hallucinations Estimated Intelligence: consistent with education level Insight: good insight Judgement: good judgement Vital Signs (Past 24 Hours) Last Vital Signs Temp 37.6 C H 10/17/20 15:48 Pulse 64 10/17/20 15:48 Resp 19 10/17/20 15:48 BP 103/58 L 10/17/20 15:48 Pulse Ox 93 10/17/20 15:48 Physical exam of the hospitalist done 10/13 is noted Results & Data ([facility]) Laboratory Results Laboratory Results - last 24 hr 10/16/20 10/17/20 10/17/20 13:50 09:24 09:24 WBC 8.94 RBC 2.92 L Hgb 9.3 L Hct 28.1 L MCV 96.2 MCH 31.8 MCHC 33.1 RDW Std Deviation 50.9 H RDW Coeff of Samreen 14.5 Plt Count 209 MPV 10.1 ESR 62 H C-Reactive Protein Urine Color Yellow Urine Appearance Clear Urine pH 6.5 Ur Specific Reliance 1.013 Urine Protein Negative Urine Glucose (UA) Negative Urine Ketones Negative Urine Blood 1+ H Urine Nitrite Negative Urine Bilirubin Negative Urine Urobilinogen Negative Ur Leukocyte Esterase Negative Urine WBC (Auto) 1-5 Urine RBC (Auto) 0-4 U Hyaline Cast (Auto) 1-5 U Epithel Cells (Auto) 10-20 H Urine Bacteria (Auto) Negative 10/17/20 09:24 WBC RBC Hgb Hct MCV MCH MCHC RDW Std Deviation RDW Coeff of Samreen Plt Count MPV ESR C-Reactive Protein 3.67 H Urine Color Urine Appearance Urine pH Ur Specific Reliance Urine Protein Urine Glucose (UA) Urine Ketones Urine Blood Urine Nitrite Urine Bilirubin Urine Urobilinogen Ur Leukocyte Esterase Urine WBC (Auto) Urine RBC (Auto) U Hyaline Cast (Auto) U Epithel Cells (Auto) Urine Bacteria (Auto) Current Inpatient Medications Current Inpatient Medications: Current Inpatient Medications Acetaminophen (Acetaminophen 325 Mg Tab) 650 mg PO Q4H PRN PRN Reason: Pain or Fever Stop: 11/07/20 23:37 Last Admin: 10/13/20 15:24 Dose: 650 mg Documented by: Albuterol (Albuterol Hfa 8 Gm Inhaler) 2 puffs INH Q4 PRN PRN Reason: Shortness Of Breath Stop: 11/12/20 11:59 Apixaban (Apixaban 5 Mg Tablet) 5 mg PO BID [facility] Stop: 11/08/20 13:59 Last Admin: 10/14/20 21:42 Dose: 5 mg Documented by: Aspirin (Aspirin 81 Mg Ectab) 81 mg PO DAILY [facility] Stop: 11/08/20 08:59 Last Admin: 10/17/20 08:08 Dose: 81 mg Documented by: Clonazepam (Clonazepam 0.5 Mg Tab) 0.5 mg PO DAILY PRN PRN Reason: Anxiety Stop: 11/08/20 08:59 Last Admin: 10/15/20 01:33 Dose: 0.5 mg Documented by: Dextrose (Dextrose 50% 50 Ml Syringe) 25 - 50 ml IV UD PRN; Protocol PRN Reason: Hypoglycemia Protocol Stop: 11/07/20 23:37 Diltiazem HCl (Diltiazem Hcl 180 Mg Capcr) 180 mg PO QAM [facility] Stop: 11/11/20 08:59 Last Admin: 10/17/20 08:08 Dose: 180 mg Documented by: Docusate Sodium (Docusate Sodium 100 Mg Cap) 100 mg PO BID [facility] Stop: 11/13/20 20:59 Last Admin: 10/17/20 08:08 Dose: 100 mg Documented by: Fluticasone/Vilanterol (Fluticasone/Vilanterol 100/25mcg 14 Puffs/Inhaler) 1 puffs INH DAILY [facility] Stop: 11/08/20 08:59 Last Admin: 10/17/20 08:09 Dose: 1 puffs Documented by: Gabapentin (Gabapentin 400 Mg Cap) 400 mg PO TID [facility] Stop: 11/08/20 08:59 Last Admin: 10/17/20 14:14 Dose: 400 mg Documented by: Glucagon (Glucagon For Inj 1 Mg Vial) 1 mg SQ UD PRN; Protocol PRN Reason: Hypoglycemia Protocol Stop: 11/07/20 23:37 Glucose (Glucose 10 Tabs/Tube) 4 - 8 tabs PO UD PRN; Protocol PRN Reason: Hypoglycemia Protocol Stop: 11/07/20 23:37 Glucose (Glucose 40% Gel 15 Gm Tube) 15 - 30 gm PO UD PRN; Protocol PRN Reason: Hypoglycemia Protocol Stop: 11/07/20 23:37 Hydroxyzine HCl (Hydroxyzine Hcl 25 Mg Tab) 25 mg PO Q4 PRN PRN Reason: Allergic Symptoms Stop: 11/12/20 13:44 Last Admin: 10/13/20 14:00 Dose: 25 mg Documented by: Lactobacillus Acidoph/Casei/Rhamnos (Advanced Probiotic 1250 Mg Capsule) 2 cap PO DAILY [facility] Stop: 11/16/20 13:29 Last Admin: 10/17/20 14:14 Dose: 2 cap Documented by: Levofloxacin (Levofloxacin 750 Mg Tab) 750 mg PO DAILY@1100 [facility] Stop: 10/24/20 13:29 Last Admin: 10/17/20 14:14 Dose: 750 mg Documented by: Levothyroxine Sodium (Levothyroxine Sodium 88 Mcg Tablet) 88 mcg PO DAILYBB [facility] Stop: 11/08/20 06:29 Last Admin: 10/17/20 05:51 Dose: 88 mcg Documented by: Loratadine (Loratadine 10 Mg Tab) 10 mg PO QAM [facility] Stop: 11/10/20 11:29 Last Admin: 10/17/20 08:08 Dose: 10 mg Documented by: Metoprolol Tartrate (Metoprolol Tartrate 1 Mg/Ml Vial) 5 mg IV Q4 PRN PRN Reason: Tachycardia Stop: 11/08/20 11:59 Last Admin: 10/10/20 17:30 Dose: 5 mg Documented by: Metoprolol Tartrate (Metoprolol Tartrate 25 Mg Tab) 75 mg PO BID [facility] Stop: 11/13/20 20:59 Last Admin: 10/17/20 08:09 Dose: 75 mg Documented by: Miscellaneous (Carbohydrates For Hypoglycemia ) 15 - 30 gm PO UD PRN PRN Reason: Hypoglycemia Protocol Stop: 11/07/20 23:37 Multi-Ingredient Cream (Eucerin Cr 120 Gm Jar) 1 appln EXT Q1H PRN PRN Reason: dry skin Stop: 11/14/20 19:15 Last Admin: 10/15/20 20:44 Dose: 1 appln Documented by: Ondansetron HCl (Ondansetron Inj 2 Mg/Ml 2 Ml Vial) 4 mg IV Q6H PRN PRN Reason: Nausea Stop: 11/07/20 23:37 Last Admin: 10/11/20 17:15 Dose: 4 mg Documented by: Polyethylene Glycol (Polyethylene (Miralax) 17 Gm Pack) 17 gm PO DAILY [facility] Stop: 11/16/20 09:14 Last Admin: 10/17/20 14:14 Dose: 17 gm Documented by: Quetiapine Fumarate (Quetiapine Fumarate 200 Mg Tab) 200 mg PO QAM [facility] Stop: 11/08/20 11:59 Last Admin: 10/17/20 08:09 Dose: 200 mg Documented by: Quetiapine Fumarate (Quetiapine Fumarate 200 Mg Tab) 400 mg PO QPM [facility] Stop: 11/08/20 20:59 Last Admin: 10/16/20 20:08 Dose: 400 mg Documented by: Sennosides (Senna 8.6 Mg Tab) 17.2 mg PO QAM [facility] Stop: 11/13/20 18:29 Last Admin: 10/17/20 08:08 Dose: 17.2 mg Documented by: Simvastatin (Simvastatin 40 Mg Tab) 40 mg PO QPM [facility] Stop: 11/08/20 20:59 Last Admin: 10/16/20 20:09 Dose: 40 mg Documented by: Sodium Chloride (Sodium Chloride 0.65% Na Soln 45 Ml ([place]wsley)) 2 sprays NA BID PRN PRN Reason: Congestion Stop: 11/12/20 03:42 Last Admin: 10/15/20 01:34 Dose: 2 sprays Documented by: Tramadol HCl (Tramadol Hcl 50 Mg Tablet) 50 mg PO TID PRN PRN Reason: Moderate Pain Stop: 11/08/20 00:58 Last Admin: 10/13/20 13:05 Dose: 50 mg Documented by: Trazodone HCl (Trazodone Hcl 50 Mg Tab) 100 mg PO HS PRN PRN Reason: Sleep Stop: 11/08/20 01:10 Last Admin: 10/14/20 22:03 Dose: 100 mg Documented by: Trimethoprim/Sulfamethoxazole (Sulfamethoxazole/Trimethoprim Ds 800/160mg Tab) 1 tab PO Q12 [facility] Stop: 11/21/20 20:59 Last Admin: 10/17/20 08:09 Dose: 1 tab Documented by: Vitamin D (Cholecalciferol 1,000 Units 25 Mcg Tab) 2,000 units PO DAILY [facility] Stop: 11/08/20 08:59 Last Admin: 10/17/20 08:08 Dose: 2,000 units Documented by: Mental Health & Subst Abuse Tx Psychiatrist Name of Psychiatrist: Velvet Sanchez Psychiatrist's Date of Appointment with Psychiatrist: 10/21/20 Time of Appointment with Psychiatrist: 9:00 a.m. Psychiatric Appointment Comment: [address] [facility] [place] [address] Automobile Assembler Name of Automobile Assembler: [facility] Phone Number for Automobile Assembler: [phone] Case Management Appointment Comment: Will follow up with you to see you at the [facility] Post Discharge Appointments Primary Care Physician Name Of Family Doctor: [facility] Date of Appointment with PCP: 10/25/20 Time of Appointment with PCP: 9:30 a.m. Provider Appointment Comment: [address] [place] [address] Corey Smyth Specialist Name of Specialist: MAN Cardiology - Dr. Ga Villareal Phone Number for Specialist: [phone] Date of Appointment with Specialist: 10/24/20 Time of Appointment with Specialist: 1:30 p.m. Specialty Appointment Comment: [address] [facility], [address], [place] [address] Contact Information Discharge Discharge Address: [address] [place] [address] Contact Information [facility]
--- NOTE | 2020-10-17 17:45 | Cardiology Progress Note ---
Date of Service October 17, 2020 Assessment & Plan (1) Paroxysmal atrial flutter: 2. CAD-- known occluded RCA 3. History of severe mitral regurgitation status post mitral valve repair 4. Chronic sternal osteomyelitis--on suppressive antibiotics 5. Schizophrenia No further arrhythmias. Hemoglobin has improved. No evidence of continued bleeding at the groin access site. I think would be safe to resume her Eliquis. I think she is safe for discharge from a cardiac standpoint. She should f ollow-up in our clinic in approximately [address] time. As noted in Dr. Medina's note she should refrain from straining or lifting over 10 lb for another 5 days. Admission and Anticipated Discharge Date Admission Date: October 08, 2020 Subjective The patient claims to be feeling well today. She was him toward around her room. She has not report any discomfort or additional bleeding at the groin access site. No sense of palpitation. Review of Systems Review of Systems: Per HPI Physical Exam Physical Exam: She is alert and oriented x3. Mood affect appear normal. She answered all questions appropriately. HEENT: Sclerae are anicteric. Pupils are equal and reactive to light and accommodation. Extraocular movements were intact. Neuro: Cranial nerves intact Lungs: Normal respiratory effort Cardiac: The rhythm was regular. S1 and S2 were normal. There are no murmurs on examination. The PMI was not markedly displaced on palpation. Evaluation of the right groin access site did not reveal any evidence of hematoma, bruising or bleeding. Skin: There are no rashes noted on examination today. Results & Data ([facility]) Vital Signs (Past 12 Hours) Vital Signs Temp Pulse Pulse Resp BP Pulse Ox 10/17/20 15:48 37.6 C H 64 19 103/58 L 93 10/17/20 10:46 37.2 C 61 19 105/58 L 93 10/17/20 07:16 36.7 C 60 18 108/60 94 Laboratory Results Abnormal Lab Results 10/16/20 10/17/20 10/17/20 13:50 09:24 09:24 WBC 8.94 RBC 2.92 L Hgb 9.3 L Hct 28.1 L MCV 96.2 MCH 31.8 MCHC 33.1 RDW Std Deviation 50.9 H RDW Coeff of Samreen 14.5 Plt Count 209 MPV 10.1 ESR 62 H C-Reactive Protein Urine Color Yellow Urine Appearance Clear Urine pH 6.5 Ur Specific [place] 1.013 Urine Protein Negative Urine Glucose (UA) Negative Urine Ketones Negative Urine Blood 1+ H Urine Nitrite Negative Urine Bilirubin Negative Urine Urobilinogen Negative Ur Leukocyte Esterase Negative Urine WBC (Auto) 1-5 Urine RBC (Auto) 0-4 U Hyaline Cast (Auto) 1-5 U Epithel Cells (Auto) 10-20 H Urine Bacteria (Auto) Negative 10/17/20 09:24 WBC RBC Hgb Hct MCV MCH MCHC RDW Std Deviation RDW Coeff of Samreen Plt Count MPV ESR C-Reactive Protein 3.67 H Urine Color Urine Appearance Urine pH Ur Specific [place] Urine Protein Urine Glucose (UA) Urine Ketones Urine Blood Urine Nitrite Urine Bilirubin Urine Urobilinogen Ur Leukocyte Esterase Urine WBC (Auto) Urine RBC (Auto) U Hyaline Cast (Auto) U Epithel Cells (Auto) Urine Bacteria (Auto) Diagnostic Findings CXR 10/08/20: -- There are postsurgical changes of a midline sternotomy and valvular replacement. There is no failure. There is no focal pulmonary consolidation. There are no pleural effusions. -- There has been interval resolution of the previously identified interstitial edema. IMPRESSION: -- No active disease in the chest. PG Care Time/CCT Total # of Minutes Spent Total Time Spent with Patient: Total time spent is greater than 50% in coordination of care (as documented) at patient's floor/unit and/or counseling patient: Coding Level of Care Code 95879 Subseq Hosp Care Lvl 2 Diagnoses Paroxysmal atrial flutter I48.92
[2020-10-17] MEDS: SIMVASTATIN 40 MG TAB PO SCH (19:40)
[2020-10-17] MEDS ORDERED: METOPROLOL TARTRATE 50 MG TAB PO SCH (21:00)
--- NOTE | 2020-10-17 21:06 | Hospitalist Progress Note ---
Date of Service October 17, 2020 Assessment & Plan (1) Bilateral pneumonia: likely cause of low-grade fevers over past 48 hours. b/l upper lobes, L>R. aspiration given her self-reported dysphagia? community-acquired? hospital-acquired? refused IV therapy. start levaquin 750mg po daily x 7 days. lactinex daily. (2) Acute blood loss anemia: 2nd to bleeding from femoral vein puncture site for EP study. H/H dropped into 8's. Repeat Hb stable. No need for PRBCs at this time. Discussed w/ patient we need to avoid straining at stool and excessive activity so that further bleeding dose not occur. Thus, treat constipation aggressively. Discussed the above with Dr Teague. Cont to hold eliquis until ok to resume with Dr Teague. (3) Low grade fever: 2nd b/l upper lobe pneumonia. COVID neg x 2. Start levaquin 750mg daily x 7 days. Low threshold to broaden abx if no clinical improvement. Low threshold to repeat a cephaid COVID test if fevers persist. CT chest today WITHOUT FINDINGS to suggest active sternal osteomyelitis. (4) Atrial flutter with rapid ventricular response: resolved, converted back to NSR on 10/14/20. remains on CCB and BB; digoxin stopped. s/p EP study 10/15/20 with successful ablation procedure by Dr Teague - appreciate his assistance. resume eliquis when permissible with Dr Teague. recent echo reviewed from 08/2020 (EF 55-60%, largely intact mitral valve s/p repair in past, etc) (5) Acute diastolic CHF (congestive heart failure): 2nd to rapid a flutter/fib. s/p IV and PO lasix this week. still with sizeable effusions on CT - will give additional lasix today. (6) Constipation: cont senna, colace, miralax. patient encouraged to comply with bowel regimen - she is becoming more distended day to day. explained that she needs meds to resolve this. x-rays yesterday with mod-severe constipation. (7) Atrial fibrillation with rapid ventricular response: resolved, back in NSR see above (8) Paroxysmal atrial flutter: as above s/p a flutter ablation by Dr Teague - 10/15/20 (9) HTN (hypertension): Bps are low-normal in setting of BB and CCB therapy for a.fib/flutter acute blood loss anemia also impacting BPs LOWER the metoprolol to 50mg BID may need even lower dosing or perhaps stopping it completely (10) Hyperlipidemia: Continue simvastatin (11) COPD, moderate: Continue budesonide-formoterol No exacerbation at this time COVID neg x 2 (12) Unspecified psychosis: 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 Cont seroquel per psych. appreciate psych input and med management. patient to be d/c to care home setting in [place] at time of discharge from hospital. (13) Hypothyroidism: TSH 1.5 on 09/28/20. Cont synthroid. (14) Osteomyelitis of sternum: on chronic bactrim suppressive therapy see above in "low grade fever" CT chest today w/o active infection of sternum (15) Schizophrenia: see above in "psychosis" of note - b12 level wnl (16) History of mitral valve repair: echo 08/2020 with non-severe mitral valve stenosis EF preserved (17) DVT prophylaxis: eliquis BID on hold s/p EP study and femoral vein bleeding from puncture site spoke with psych today - unfortunately patient will not d/c to care home ([facility]) today they cannot take her on Wednesday or the weekend thus, we are looking at Wednesday of this coming week for discharge Admission and Anticipated Discharge Date Admission Date: October 08, 2020 Subjective tele overnight w/ NSR. she reports dysphagia for solids. this is a long-standing issue. coughs/chokes on certain solids occasionally. no issues with fluids. had low-grade temp again overnight. sternal pain - chronic - unchanged. no worse than baseline. still no bowel movement. reluctant to take miralax - "I don't like the taste." she wants to have a BM "naturally" - by eating applesauce and prunes. she remains distended. continues with mild [place]ATT. Review of Systems Constitutional: + fever; no anorexia Respiratory: + cough and + dyspnea on exertion; no pain on inspiration Cardiovascular: as per Subjective / HPI, + chest pain and + dyspnea on exertion; no dyspnea at rest, no orthopnea and no edema Gastrointestinal: + bloating and + constipation; no nausea and no vomiting Genitourinary: no dysuria Physical Exam Constitutional: no acute distress and no altered mental status ENMT: external ear and nose normal, oropharynx normal Respiratory: Auscultation: + diminished lung sounds (Bases - worse on right) and + rales (Bases - improved); no wheezes Cardiovascular: Rate/Rhythm: regular rate and regular rhythm Heart Sounds: normal S1 and normal S2; no murmur Vessels: posterior tibial pulses present and dorsalis pedis pulses present; no JVD Extremities: no edema Gastrointestinal (Abdomen): Inspection/Auscultation: + abdomen distended and + hypoactive bowel sounds Percussion/Palpation: abdomen nontender, no guarding and no hepatosplenomegaly Skin: Trauma: no hematoma (None found - right groin) Psychiatric: Orientation: alert and oriented x 3 Thought Content: + paranoid and + delusions Results & Data Results & Data ([facility]) Vital Signs (Past 12 Hours) Vital Signs Temp Pulse Pulse Resp BP BP Pulse Ox 10/17/20 19:47 37.4 C 67 16 124/44 L 93 10/17/20 15:48 37.6 C H 64 19 103/58 L 93 10/17/20 10:46 37.2 C 61 19 105/58 L 93 Laboratory Results Laboratory Results - last 24 hr 10/17/20 10/17/20 10/17/20 09:24 09:24 09:24 WBC 8.94 RBC 2.92 L Hgb 9.3 L Hct 28.1 L MCV 96.2 MCH 31.8 MCHC 33.1 RDW Std Deviation 50.9 H RDW Coeff of Samreen 14.5 Plt Count 209 MPV 10.1 ESR 62 H C-Reactive Protein 3.67 H Diagnostic Findings Chest/Abdomen X-ray 10/16/20 20:51 CHEST AND ABDOMEN 2 VIEWS HISTORY: low grade fever, abd distension COMPARISON: Chest 10/13/2020. FINDINGS: No pneumothorax. Poststernotomy changes. The heart remains borderline enlarged. Slight improvement in the mild interstitial pulmonary edema and small bilateral pleural effusions. A cardiac valve prosthesis is again noted. No pneumoperitoneum. No pneumatosis. Prior cholecystectomy. Moderate well-formed stool seen throughout the colon. There are surgical clips within the left inguinal region. No dilated loops of bowel to suggest an obstruction. No renal or ureteral calculi. IMPRESSION: 1. Slight improvement in the mild interstitial pulmonary edema and small bilateral pleural fusions. 2. No evidence for bowel obstruction. 3. Moderate well-formed stool within the colon. ACT 112: Negative or not required by law. Electronically signed by: Ritesh Castillo M.D. 10/17/2020 7:[address] 10/17/20 09:55 CT chest diagnostic wo con CLINICAL HISTORY: h/o sternal osteomyelitis; elevated ESR; fever, CP COMPARISON STUDY: April 12, 2020 CT DOSE: 240.78 mGy.cm TECHNIQUE: CT of the thorax was performed from the thoracic inlet to the lung bases. Images are reviewed in the axial, sagittal, and coronal planes. IV contrast was not administered for this examination. A dose lowering technique was utilized adhering to the principles of ALARA. FINDINGS: There is no axillary, supra clavicle or internal mammary lymphadenopathy seen. Mild interval enlargement of the paratracheal lymph node now measuring 1.0 cm in short axis, previously it was measured 0.6 cm in size. 1.2 cm APV in the lymph node is new since prior (). 1.0 cm subcarinal lymph node is also more c onspicuous than on prior study. Visualized portion of thyroid gland shows no evidence of focal lesion show decrease in attenuation of thyroid parenchyma. Esophagus is normal. Heart is normal in size without evidence of pericardial effusion. Mitral ring is seen. Severe calcifications of the [place] coronary arteries. Status post CABG. Tracheobronchial tree is patent. Interval development of consolidative opacity within left upper lobe. Also patchy infiltrates are seen within the right upper and lower lobes. Interval development of moderate bilateral pleural effusion associated with atelectasis of posterior aspect of bilateral lower lobes. Limited evaluation of upper abdominal viscera shows no evidence of acute abnormalities. Pancreas is atrophic. Evaluation of osseous structures shows sternotomy changes without evidence of acute abnormalities. Interval development of compression fracture deformities within T8 and T9 associated with sclerosis and large Schmorl nodes. No evidence of posterior element involvement. IMPRESSION: 1. Healed sternotomy defect. No evidence of acute abnormalities within the sternal. Sternotomy wires are again seen. 2. Interval development of compression fracture deformities of T8 and T9 vertebra. Further evaluation with MRI of the thoracic spine might be considered. 3. Interval development of multifocal infiltrates predominantly within bilateral upper lobes likely represent pneumonia. Moderate pleural effusion also seen bilaterally. Short-term follow-up in 4-6 weeks is recommended to document resolution. ACT 112: Positive. There are findings on this exam that require communication between the performing entity and the patient following Patient Test Result Information Act ([place] Act 112) guidelines. The above report was generated using voice recognition software. It may contain grammatical, syntax or spelling errors. Electronically signed by: Abigail Plaza DO 10/17/2020 2:53 PM PG Care Time/CCT Total # of Minutes Spent Total Time Spent with Patient: Total time spent is greater than 50% in coordination of care (as documented) at patient's floor/unit and/or counseling patient: Coding Level of Care Code 91839 Subseq Hosp Care Lvl 3 Diagnoses Bilateral pneumonia J18.9 Lung location: upper lobe of lung Pneumonia type: due to unspecified organism Acute blood loss anemia D62 Low grade fever R50.9 Atrial flutter with rapid ventricular response I48.92 Acute diastolic CHF (congestive heart failure) I50.31 Constipation K59.00 Atrial fibrillation with rapid ventricular response I48.91 Paroxysmal atrial flutter I48.92 HTN (hypertension) I10 Hyperlipidemia E78.5 COPD, moderate J44.9 Unspecified psychosis F29 Hypothyroidism E03.9 Osteomyelitis of sternum M86.9 Schizophrenia F20.9 Schizophrenia type: unspecified History of mitral valve repair Z98.890 DVT prophylaxis Z29.9 (1) Schizophrenia Schizophrenia type: unspecified Qualified Code(s): F20.9 - Schizophrenia, unspecified (2) Bilateral pneumonia Lung location: upper lobe of lung Pneumonia type: due to unspecified organism Qualified Code(s): J18.9 - Pneumonia, unspecified organism
[2020-10-17] MEDS: traZODone HCL 50 MG TAB PO PRN (21:45)
[2020-10-18] MEDS: LEVOTHYROXINE SODIUM 88 MCG TABLET PO SCH (06:20)
[2020-10-18] MEDS: ASPIRIN 81 MG ECTAB PO SCH (08:06)
[2020-10-18] MEDS: CHOLECALCIFEROL 1,000 UNITS 25 MCG TAB PO SCH (08:06)
[2020-10-18] MEDS: GABAPENTIN 400 MG CAP PO SCH ×2 (08:07→13:37)
[2020-10-18] MEDS: FLUTICASONE/VILANTEROL 100/25MCG 14 PUFFS/INHALER INH SCH (08:07)
[2020-10-18] MEDS: ADVANCED PROBIOTIC 1250 MG CAPSULE PO SCH (08:08)
[2020-10-18] MEDS: LORATADINE 10 MG TAB PO SCH (08:08)
[2020-10-18] MEDS: SENNA 8.6 MG TAB PO SCH (08:09)
[2020-10-18] MEDS: QUEtiapine FUMARATE 200 MG TAB PO SCH (08:09)
[2020-10-18] MEDS: POLYETHYLENE (MIRALAX) 17 GM PACK PO SCH (08:09)
[2020-10-18] MEDS: SULFAMETHOXAZOLE/TRIMETHOPRIM DS 800/160MG TAB PO SCH (08:10)
[2020-10-18] MEDS: dilTIAZem HCL 180 MG CAPCR PO SCH (08:11)
[2020-10-18] MEDS: DOCUSATE SODIUM 100 MG CAP PO SCH (08:14)
[2020-10-18] MEDS ORDERED: METOPROLOL TARTRATE 25 MG TAB PO SCH (09:00)
[2020-10-18] MEDS: levoFLOXacin 750 MG TAB PO SCH (11:52)
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
== END 2020-10-18 15:25 | disposition home or self-care (01) ==
LOC: 2S 23:12 → SUATTDRO 23:12

== ENCOUNTER 2020-10-21 00:13 | Observation (INO) ==
--- NOTE | 2020-10-21 00:28 | Emergency Department Note ---
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 Was admitted to [address] [place] [address] a few weeks ago as well as recent admission to medicine for bilateral aspiration pneumonia and anemia following heart catheterization complicated by anemia form bleeding right groin. She was released from Wednesday afternoon and since being at facility she has bene difficult with staff, refusing medications, refusing help, hallucinating and then tonight around 8pm she took a large number of her pills. Unclear if this included her Eliquis or Levaquin. Patient denies any knowledge of this though is clearly unaware of anything or is blatantly lying to me. Throughout exam falling asleep. Exam with normal EKG, CXR, labs. She is quite somnolent and th is is consistent with OD of multiple of her meds. No heart block, hypotension nor other findings while monitoring her quite closely for 2 hours. After this she will clearly need further medical clearance and I have consulted medicine prior to completing 302. Of note, recently treated for pna and lung exam OK now with clear cxr. She had bleeding right groin with cath recently and site is bruised but no thrill nor evidence of large pulsatile mass. Furthermore HgB is improving. 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 Vital Signs: reviewed and remarkable for no significant abnormalities Interventions: saline lock, nss bolus Labs:Reviewed and remarkable for no significant abnormalities Imaging:X ray results are stated below per my interpretation: Chest: 1 view: No infiltrate, no effusion, normal cardiac border. EKG:Per My Interpretation: Indication Overdose: Sinus Tach 101 bpm, qtc 453. No Ectopy. No Ischemia. Compared to EKG 10/16/20, no significant changes other than rate increase. Cardiac/Tele Monitoring: Cardiac Monitoring: An Order was placed for continuous cardiac monitoring. The monitor shows a rate of 90 with a normal sinus rhythm. Consults:Poison Control: Multiple medications of concern requiring prolonged medical management Dr Es GARCIA Hospitalist Plan: Disposition:Hospitalization. Condition: Good History of Present Illness:60 yr old arrives for evaluation of overdose. Patient of note denies any issues, denies overdose, and states she feels well. Denies any medical problems, psychiatric history, nor other concerns. Per Crisis patient overdosed on multiple medications around 8pm this evening after acting iritically over the last few days. Per Chart: She had been in [facility] for bilateral pneumonia and anemia from bleeding post right groin accessed heart cath. Discharged Wednesday afternoon on Levaquin. Recent hospitalization for psychiatric condition at the beginning of this month. She is here on 302 warrant. Ho multiple admissions and schizophrenia. ROS: See above HPI for pertinent positives & negatives. A total of 10 systems reviewed and were otherwise negative. Past Medical History:See Below Past Surgical History:See Below Family History:See Below Social History:See Below Home Medications:See Below Allergies:PNC, Perphenazine, Prednisone, Azithro Vitals:Blood Pressure: 122/70, Pulse 107, RR 16, T 36.7C, O2 98% on RA Physical Exam: GENERAL: Patient is somnolent appearing and in no acute distress. EYES: No scleral icterus, unremarkable pupils. ENT: Mucous membranes moist, no nasal congestion. NECK: No masses appreciated, nomeningismus, trachea is midline. RESPIRATORY: No dyspnea. Clear to auscultation and equal bilaterally. No wheeze, no rhonchi. CARDIOVASCULAR: Regular rate and rhythm.No murmurs, rubs, gallops appreciated. GASTROINTESTINAL: Abdomen soft, non-tender, no peritonitis.Bowel sounds positive.No masses appreciated. BACK: No midline tenderness, no CVA tenderness EXTREMITIES: Normal motion all extremities, no cyanosis, no edema. NEUROLOGIC: Alert and oriented, no acute motor or sensory deficits, no focal weakness, cranial nerves grossly intact. SKIN: No rash, no jaundice, no diaphoresis. PSYCH: Periodically rambling, denies psychiatric history nor depression, suicidal ideation, homicidal ideation, nor hallucinations. GCS: 14 ED Course: Times/Reassessments: Increasingly somnolent though awakens to voice, vitals stable, and patient protecting airway throughout Richard Shanks MD Past Med/Surg History Medical History Chronic osteomyelitis Chronic pain of right wrist COPD (chronic obstructive pulmonary disease) Current smoker Fibromyalgia GERD (gastroesophageal reflux disease) History of myocardial infarction in adulthood HTN (hypertension) Hyperlipidemia Lab test negative for COVID-19 virus Long-term use of high-risk medication Nicotine addiction PAD (peripheral artery disease) Paranoia Unspecified psychosis Surgical History H/O arthroscopic knee surgery History of cholecystectomy History of mitral valve repair History of tonsillectomy Family History Mother Breast cancer Uncle Diabetes Brother Diabetes Grandfather (Paternal) Diabetes Father Diabetes Grandmother (Maternal) Diabetes Colorectal cancer Social History Smoking Status: Former smoker Tobacco Type: Cigarettes packs per day: 1; Cigarettes Per Day: pack a day; Second Hand Exposure: Yes; Hx Alcohol Use: Yes Alcohol type: beer and wine Hx Substance Use: No Preferred Language: Romansh Communication Ability: sleeping Vehicle Window Tinter Required: No Beliefs That Will Affect Care: None marital status: Single Current Living Situation: Alone and Homeless Current Living Situation Comment: community housing/homeless current occupational status: disabled Feels Safe at Home: Yes Assistive Devices: None Allergies Allergies Allergy/AdvReac Type Severity Reaction Status Date / Time Penicillins Allergy Unknown RASH Verified 10/21/20 00:33 perphenazine Allergy Unknown SWELLING Verified 10/21/20 00:33 ALL OVER BODY prednisone AdvReac Severe not able Verified 10/21/20 00:33 to sleep azithromycin AdvReac Hives Verified 10/21/20 00:33 Home Meds Home Medications Medication Instructions Recorded Confirmed quetiapine [Seroquel] See Rx Instructions .ROUTE .COMPLEX 10/21/20 10/21/20 simvastatin 40 mg PO HS 10/21/20 10/21/20 trazodone 100 mg PO HS 10/21/20 10/21/20 Previous Rx's Medication Instructions Recorded albuterol sulfate 2 puff INHALATION QID PRN #18 g 10/18/20 apixaban [Eliquis] 5 mg PO BID #60 tab 10/18/20 aspirin 81 mg PO DAILY #90 tab 10/18/20 clonazepam 0.5 mg PO BID PRN #30 tab 10/18/20 diltiazem HCl 180 mg PO QAM #30 cap 10/18/20 gabapentin 400 mg PO TID #90 cap 10/18/20 ipratropium bromide 2 spray INTRANASAL BID #15 ml 10/18/20 levofloxacin 750 mg PO DAILY@1100 5 Days #5 tab 10/18/20 levothyroxine [Synthroid] 88 mcg PO DAILYBB #30 tab 10/18/20 omega-3 fatty acids-fish oil 1 cap PO DAILY #30 cap 10/18/20 sulfamethoxazole-trimethoprim 1 tab PO Q12 #60 tab 10/18/20 [Bactrim DS] tiotropium bromide 2 puff INHALATION DAILY #4 g 10/18/20 Results & Data (ED) Vital Signs Vital Signs - 24 hr 10/21/20 00:15 Temperature 36.7 C Temperature Source Oral Pulse Rate 107 H Respiratory Rate 16 Respiratory Effort / Characteristics Non-Labored Spontaneous Respiratory Depth Normal Blood Pressure 122/70 Blood Pressure Mean 87 Pulse Oximetry 98 Oxygen Delivery Method Room Air Sepsis Recent Fever Within 48 Hours No Sepsis New/Unexplained Change in Mental Status N/A Sepsis Action Taken by Nursing No Action Required Laboratory Data Result diagrams: 10/21/20 00:43 10/21/20 00:43 Lab Results 10/21/20 10/21/20 10/21/20 Range/Units 00:40 00:40 00:40 WBC (4.8-10.8) K/uL RBC (4.2-5.4) M/uL Hgb (12.0-16.0) g/dL Hct (37-47) % MCV (80-100) fL MCH (25-34) pg MCHC (32-36) g/dL RDW Std Deviation (36.4-46.3) fL RDW Coeff of Samreen (11.5-14.5) % Plt Count (130-400) K/uL MPV (7.4-10.4) fL Immature Gran % (Auto) % Neut % (Auto) % Lymph % (Auto) % [place] % (Auto) % Eos % (Auto) % Baso % (Auto) % Neut # (Auto) (1.4-6.5) K/uL Lymph # (Auto) (1.2-3.4) K/uL [place] # (Auto) (0.11-0.59) K/uL Eos # (Auto) (0-0.5) K/uL Baso # (Auto) (0-0.2) K/uL Immature Gran # (Auto) (0.00-0.02) K/uL Sodium (136-145) mmol/L Potassium (3.5-5.1) mmol/L Chloride (98-107) mmol/L Carbon Dioxide (21-32) mmol/L Anion Gap (3-11) BUN (7-18) mg/dl Creatinine (0.6-1.2) mg/dl Est Cr Clr Drug Dosing ml/min Est GFR ( Amer) ml/min Est GFR (Non-Af Amer) ml/min BUN/Creatinine Ratio (10-20) Glucose (70-99) mg/dl Calcium (8.5-10.1) mg/dl Total Bilirubin (0.2-1) mg/dl AST (15-37) U/L ALT (12-78) U/L Alkaline Phosphatase (45-117) U/L Troponin I (0-0.045) ng/ml Total Protein (6.4-8.2) gm/dl Albumin (3.4-5.0) gm/dl Globulin (2.5-4.0) gm/dl Albumin/Globulin Ratio (0.9-2) TSH (0.300-4.500) uIu/ml Urine Color Yellow Urine Appearance Clear (Clear) Urine pH 7.5 (4.5-7.5) Ur Specific Martin 1.009 (1.000-1.030) Urine Protein Negative (Negative) Urine Glucose (UA) Negative (Negative) Urine Ketones Negative (Negative) Urine Blood 1+ H (Negative) Urine Nitrite Negative (Negative) Urine Bilirubin Negative (Negative) Urine Urobilinogen Negative (Negative) Ur Leukocyte Esterase Negative (Negative) Urine WBC (Auto) 1-5 (0-5) /hpf Urine RBC (Auto) 10-30 H (0-4) /hpf U Hyaline Cast (Auto) 0 (0-5) /lpf U Epithel Cells (Auto) 10-20 H (0-5) /lpf Urine Bacteria (Auto) Negative (Negative) Salicylates (2.8-20) mg/dl Urine Opiates Screen Neg (Neg) Ur Methadone, Qual Neg (Neg) Acetaminophen (10-30) ug/ml Urine Barbiturates Neg (Neg) Ur Phencyclidine (PCP) Neg (Neg) U Amphetamin/Meth Scrn Neg (Neg) MDMA (Ecstasy) Screen Neg (Neg) U Benzodiazepines Scrn Neg (Neg) Ur Cocaine Metabolite Neg (Neg) U Marijuana (THC) Screen Neg (Neg) Ethyl Alcohol mg/dL (0-3) mg/dl COVID-19 Eval Order Covid19 IDNow [facility] SARS-CoV-2, RNA, NAAT (NEGATIVE) 10/21/20 10/21/20 10/21/20 Range/Units 00:40 00:43 00:43 WBC 8.16 (4.8-10.8) K/uL RBC 2.97 L (4.2-5.4) M/uL Hgb 9.4 L (12.0-16.0) g/dL Hct 28.2 L (37-47) % MCV 94.9 (80-100) fL MCH 31.6 (25-34) pg MCHC 33.3 (32-36) g/dL RDW Std Deviation 49.9 H (36.4-46.3) fL RDW Coeff of Samreen 14.6 H (11.5-14.5) % Plt Count 256 (130-400) K/uL MPV 9.3 (7.4-10.4) fL Immature Gran % (Auto) 0.2 % Neut % (Auto) 67.4 % Lymph % (Auto) 19.9 % [place] % (Auto) 11.4 % Eos % (Auto) 0.7 % Baso % (Auto) 0.4 % Neut # (Auto) 5.50 (1.4-6.5) K/uL Lymph # (Auto) 1.62 (1.2-3.4) K/uL [place] # (Auto) 0.93 H (0.11-0.59) K/uL Eos # (Auto) 0.06 (0-0.5) K/uL Baso # (Auto) 0.03 (0-0.2) K/uL Immature Gran # (Auto) 0.02 (0.00-0.02) K/uL Sodium 139 (136-145) mmol/L Potassium 3.8 (3.5-5.1) mmol/L Chloride 107 (98-107) mmol/L Carbon Dioxide 26 (21-32) mmol/L Anion Gap 6.0 (3-11) BUN 9 (7-18) mg/dl Creatinine 0.74 (0.6-1.2) mg/dl Est Cr Clr Drug Dosing 64.7 ml/min Est GFR ( Amer) 102.8 ml/min Est GFR (Non-Af Amer) 88.7 ml/min BUN/Creatinine Ratio 11.9 (10-20) Glucose 105 H (70-99) mg/dl Calcium 9.3 (8.5-10.1) mg/dl Total Bilirubin 0.3 (0.2-1) mg/dl AST 14 L (15-37) U/L ALT 23 (12-78) U/L Alkaline Phosphatase 144 H (45-117) U/L Troponin I < 0.015 (0-0.045) ng/ml Total Protein 7.4 (6.4-8.2) gm/dl Albumin 3.4 (3.4-5.0) gm/dl Globulin 4.0 (2.5-4.0) gm/dl Albumin/Globulin Ratio 0.9 (0.9-2) TSH 4.340 (0.300-4.500) uIu/ml Urine Color Urine Appearance (Clear) Urine pH (4.5-7.5) Ur Specific Martin (1.000-1.030) Urine Protein (Negative) Urine Glucose (UA) (Negative) Urine Ketones (Negative) Urine Blood (Negative) Urine Nitrite (Negative) Urine Bilirubin (Negative) Urine Urobilinogen (Negative) Ur Leukocyte Esterase (Negative) Urine WBC (Auto) (0-5) /hpf Urine RBC (Auto) (0-4) /hpf U Hyaline Cast (Auto) (0-5) /lpf U Epithel Cells (Auto) (0-5) /lpf Urine Bacteria (Auto) (Negative) Salicylates (2.8-20) mg/dl Urine Opiates Screen (Neg) Ur Methadone, Qual (Neg) Acetaminophen (10-30) ug/ml Urine Barbiturates (Neg) Ur Phencyclidine (PCP) (Neg) U Amphetamin/Meth Scrn (Neg) MDMA (Ecstasy) Screen (Neg) U Benzodiazepines Scrn (Neg) Ur Cocaine Metabolite (Neg) U Marijuana (THC) Screen (Neg) Ethyl Alcohol mg/dL (0-3) mg/dl COVID-19 Eval Order SARS-CoV-2, RNA, NAAT NEGATIVE (NEGATIVE) 10/21/20 10/21/20 Range/Units 00:43 00:43 WBC (4.8-10.8) K/uL RBC (4.2-5.4) M/uL Hgb (12.0-16.0) g/dL Hct (37-47) % MCV (80-100) fL MCH (25-34) pg MCHC (32-36) g/dL RDW Std Deviation (36.4-46.3) fL RDW Coeff of Samreen (11.5-14.5) % Plt Count (130-400) K/uL MPV (7.4-10.4) fL Immature Gran % (Auto) % Neut % (Auto) % Lymph % (Auto) % [place] % (Auto) % Eos % (Auto) % Baso % (Auto) % Neut # (Auto) (1.4-6.5) K/uL Lymph # (Auto) (1.2-3.4) K/uL [place] # (Auto) (0.11-0.59) K/uL Eos # (Auto) (0-0.5) K/uL Baso # (Auto) (0-0.2) K/uL Immature Gran # (Auto) (0.00-0.02) K/uL Sodium (136-145) mmol/L Potassium (3.5-5.1) mmol/L Chloride (98-107) mmol/L Carbon Dioxide (21-32) mmol/L Anion Gap (3-11) BUN (7-18) mg/dl Creatinine (0.6-1.2) mg/dl Est Cr Clr Drug Dosing ml/min Est GFR ( Amer) ml/min Est GFR (Non-Af Amer) ml/min BUN/Creatinine Ratio (10-20) Glucose (70-99) mg/dl Calcium (8.5-10.1) mg/dl Total Bilirubin (0.2-1) mg/dl AST (15-37) U/L ALT (12-78) U/L Alkaline Phosphatase (45-117) U/L Troponin I (0-0.045) ng/ml Total Protein (6.4-8.2) gm/dl Albumin (3.4-5.0) gm/dl Globulin (2.5-4.0) gm/dl Albumin/Globulin Ratio (0.9-2) TSH (0.300-4.500) uIu/ml Urine Color Urine Appearance (Clear) Urine pH (4.5-7.5) Ur Specific Martin (1.000-1.030) Urine Protein (Negative) Urine Glucose (UA) (Negative) Urine Ketones (Negative) Urine Blood (Negative) Urine Nitrite (Negative) Urine Bilirubin (Negative) Urine Urobilinogen (Negative) Ur Leukocyte Esterase (Negative) Urine WBC (Auto) (0-5) /hpf Urine RBC (Auto) (0-4) /hpf U Hyaline Cast (Auto) (0-5) /lpf U Epithel Cells (Auto) (0-5) /lpf Urine Bacteria (Auto) (Negative) Salicylates < 1.7 L (2.8-20) mg/dl Urine Opiates Screen (Neg) Ur Methadone, Qual (Neg) Acetaminophen < 2 L (10-30) ug/ml Urine Barbiturates (Neg) Ur Phencyclidine (PCP) (Neg) U Amphetamin/Meth Scrn (Neg) MDMA (Ecstasy) Screen (Neg) U Benzodiazepines Scrn (Neg) Ur Cocaine Metabolite (Neg) U Marijuana (THC) Screen (Neg) Ethyl Alcohol mg/dL < 3.0 (0-3) mg/dl COVID-19 Eval Order SARS-CoV-2, RNA, NAAT (NEGATIVE) Administered Medications Apixaban (Apixaban 5 Mg Tablet) 5 mg PO BID DUNIA Stop: 11/20/20 20:59 Last Admin: 10/21/20 19:33 Dose: 5 mg Documented by: [id number] Diltiazem HCl (Diltiazem Hcl 180 Mg Capcr) 180 mg PO QAM DUNIA Stop: 11/20/20 08:59 Last Admin: 10/21/20 08:20 Dose: 180 mg Documented by: [id number] Fish Oil ([place]-3 (Purified Fish Oil) 1 Gm Cap) 1 gm PO DAILY DUNIA Stop: 11/20/20 08:59 Last Admin: 10/21/20 08:33 Dose: Not Given Documented by: [id number] Gabapentin (Gabapentin 400 Mg Cap) 400 mg PO TID DUNIA Stop: 11/20/20 13:59 Last Admin: 10/21/20 19:33 Dose: 400 mg Documented by: [id number] Admin: 10/21/20 15:09 Dose: 400 mg Documented by: [id number] Potassium Chloride/Sodium Chloride (Normal Saline W/20 Meq Kcl) 20 meq in 1,000 mls @ 80 mls/hr IV .[id number] DUNIA Stop: 11/20/20 06:29 Last Admin: 10/21/20 19:32 Dose: 80 mls/hr Documented by: [id number] Infusion: 10/21/20 19:32 Dose: 80 mls/hr Documented by: [id number] Admin: 10/21/20 08:17 Dose: 80 mls/hr Documented by: [id number] Levofloxacin (Levofloxacin 750 Mg Tab) 750 mg PO DAILY@1100 DUNIA Stop: 10/24/20 13:49 Last Admin: 10/21/20 15:09 Dose: 750 mg Documented by: [id number] Levothyroxine Sodium (Levothyroxine Sodium 88 Mcg Tablet) 88 mcg PO DAILYBB [facility] Stop: 11/20/20 06:29 Last Admin: 10/21/20 08:19 Dose: 88 mcg Documented by: [id number] Simvastatin (Simvastatin 40 Mg Tab) 40 mg PO HS DUNIA Stop: 11/20/20 20:59 Last Admin: 10/21/20 19:32 Dose: 40 mg Documented by: [id number] Trimethoprim/Sulfamethoxazole (Sulfamethoxazole/Trimethoprim Ds 800/160mg Tab) 1 tab PO Q12 DUNIA Stop: 11/20/20 08:59 Last Admin: 10/21/20 19:32 Dose: 1 tab Documented by: [id number] Admin: 10/21/20 08:33 Dose: 1 tab Documented by: [id number] Umeclidinium [place] (Umeclidinium [place] 62.5mcg/Blister 7 Puffs/Inhaler) 1 p uffs INH DAILY DUNIA Stop: 11/20/20 08:59 Last Admin: 10/21/20 08:33 Dose: 1 puffs Documented by: [id number] Discharge Plan Visit Data Chief Complaint: Mental Health Evaluation Stated Complaint: MENTAL HEALTH EVAL ([address]) ED Provider: Richard Shanks Discharge Problem: Overdose, Adult failure to thrive, Mental health impairment Patient Disposition: Admitted As Inpatient Discharge Instructions Interventions: ED Discharge Assessment Last Done: 10/21/20 05:05
[2020-10-21 00:52] LABS: Basophils # (auto) 0.03 K/uL (0-0.2); Basophils % (auto) 0.4 %; Eosinophils # (auto) 0.06 K/uL (0-0.5); Eosinophils % (auto) 0.7 %; Hematocrit (blood only) 28.2 % (37-47); Hemoglobin 9.4 g/dL (12.0-16.0); Immature Granulocytes # (auto) 0.02 K/uL (0.00-0.02); Immature Granulocytes % (auto) 0.2 %; Lymphocytes # (auto) 1.62 K/uL (1.2-3.4); Lymphocytes % (auto) 19.9 %; Mean Corpuscular Hemoglobin 31.6 pg (25-34); Mean Corpuscular Hgb Conc 33.3 g/dL (32-36); Mean Corpuscular Volume 94.9 fL (80-100); Mean Platelet Volume 9.3 fL (7.4-10.4); Monocytes # (auto) 0.93 K/uL (0.11-0.59); Monocytes % (auto) 11.4 %; Neutrophils % (auto) 67.4 %; Platelet Count 256 K/uL (130-400); RDW Coefficient of Variation 14.6 % (11.5-14.5); RDW Standard Deviation 49.9 fL (36.4-46.3); Red Blood Count 2.97 M/uL (4.2-5.4); White Blood Count 8.16 K/uL (4.8-10.8)
[2020-10-21 01:00] LABS: Appearance Urine Clear (Clear); Bacteria Urine Automated Negative (Negative); Bilirubin Urine Negative (Negative); Blood Urine 1+ (Negative); Cast Urine Automated 0 /lpf (0-5); Color Urine Yellow; Glucose Urine UA Negative (Negative); Ketones Urine Negative (Negative); Leukocyte Esterase Urine Negative (Negative); Nitrite Urine Negative (Negative); Protein Urine Negative (Negative); Specific Gravity Urine 1.009 (1.000-1.030); Urobilinogen Urine Negative (Negative); pH Urine 7.5 (4.5-7.5)
[2020-10-21 01:12] LABS: Alanine Aminotransferase 23 U/L (12-78); Albumin Level 3.4 gm/dl (3.4-5.0); Aspartate Aminotransferase 14 U/L (15-37); BUN Creatinine Ratio 11.9 (10-20); Blood Urea Nitrogen 9 mg/dl (7-18); Calcium 9.3 mg/dl (8.5-10.1); Carbon Dioxide 26 mmol/L (21-32); Chloride 107 mmol/L (98-107); Creatinine Clr Calc Pharmacy 64.7 ml/min; Est GFR (African American) 102.8 ml/min; Est GFR (Non-African American) 88.7 ml/min; Glucose 105 mg/dl (70-99); Potassium 3.8 mmol/L (3.5-5.1); Sodium 139 mmol/L (136-145)
[2020-10-21 01:17] LABS: Amphetamines+Metham, Urine Neg (Neg); Barbiturates, Urine Neg (Neg); Benzodiazepine, Urine Neg (Neg); Cocaine, Urine Neg (Neg); MDMA (Ecstacy), Urine Neg (Neg); Methadone, Urine Neg (Neg); Opiate, Urine Neg (Neg); Phencyclidine, Urine Neg (Neg)
[2020-10-21 01:23] LABS: Albumin Globulin Ratio 0.9 (0.9-2); Alkaline Phosphatase 144 U/L (45-117); Bilirubin,Total 0.3 mg/dl (0.2-1); Total Protein 7.4 gm/dl (6.4-8.2); Troponin I < 0.015 ng/ml (0-0.045)
[2020-10-21 01:44] LABS: Acetaminophen < 2 ug/ml (10-30); Salicylate < 1.7 mg/dl (2.8-20)
--- NOTE | 2020-10-21 04:31 | History & Physical Report ---
Date of Service October 21, 2020 Assessment & Plan (1) Intentional drug overdose: The patient will be admitted to telemetry for cardiac rhythm monitoring. N.p.o. until more alert NSS + KCl 20 mEq at 80 mils per hour Hold all psychiatric medications Consult psychiatry Present on Admission?: Yes (2) Chronic osteomyelitis: Continue Bactrim suppressive therapy when patient is more alert Present on Admission?: Yes (3) Hypothyroidism: Continue levothyroxine when patient is more alert Present on Admission?: Yes (4) Paroxysmal atrial flutter: Paroxysmal atrial flutter/paroxysmal atrial fibrillation/hypertension- Continue apixaban, aspirin, diltiazem when patient is more alert Present on Admission?: Yes (5) HTN (hypertension): See above Present on Admission?: Yes (6) Hyperlipidemia: Continue simvastatin when more alert Present on Admission?: Yes History of Present Illness Chief Complaint: The patient was brought to the emergency department after repo rtedly taking all her evening medications at once at her place of residence Primary Care Provider: Peter Lancaster MD The patient is a 60-year-old female with a past medical history including anxiety, paranoid schizophrenia, thoracolumbar degenerative disc disease, atrial flutter with RVR, fibromyalgia, nicotine addiction, unspecified psychosis, anemia, CAD, moderate COPD, chronic pancreatitis, chronic venous insufficiency, GERD without esophagitis, heart valve replacement, bladder hyperactivity, migraine, chronic osteomyelitis of sternum on suppressive antibiotics, PAD and schizophrenia. She was most recently admitted to [facility] from 10/08- 10/17/2020 for atrial flutter with RVR, possible aspiration pneumonia and acute blood loss anemia secondary to bleeding from femoral vein puncture site for EP study. She presents to the ED after having decreased responsiveness after taking all her evening pills at once Allergies Allergy/AdvReac Type Severity Reaction Status Date / Time Penicillins Allergy Unknown RASH Verified 10/21/20 00:33 perphenazine Allergy Unknown SWELLING Verified 10/21/20 00:33 ALL OVER BODY prednisone AdvReac Severe not able Verified 10/21/20 00:33 to sleep azithromycin AdvReac Hives Verified 10/21/20 00:33 Home Medications Medication Instructions Recorded Confirmed Type albuterol sulfate 2 puff INHALATION QID PRN #18 g 10/18/20 10/21/20 Rx apixaban [Eliquis] 5 mg PO BID #60 tab 10/18/20 10/21/20 Rx aspirin 81 mg PO DAILY #90 tab 10/18/20 10/21/20 Rx clonazepam 0.5 mg PO BID PRN #30 tab 10/18/20 10/21/20 Rx diltiazem HCl 180 mg PO QAM #30 cap 10/18/20 10/21/20 Rx gabapentin 400 mg PO TID #90 cap 10/18/20 10/21/20 Rx ipratropium bromide 2 spray INTRANASAL BID #15 ml 10/18/20 10/21/20 Rx levofloxacin 750 mg PO DAILY@1100 5 Days #5 tab 10/18/20 10/21/20 Rx levothyroxine [Synthroid] 88 mcg PO DAILYBB #30 tab 10/18/20 10/21/20 Rx omega-3 fatty acids-fish oil 1 cap PO DAILY #30 cap 10/18/20 10/21/20 Rx sulfamethoxazole-trimethoprim 1 tab PO Q12 #60 tab 10/18/20 10/21/20 Rx [Bactrim DS] tiotropium bromide 2 puff INHALATION DAILY #4 g 10/18/20 10/21/20 Rx quetiapine [Seroquel] See Rx Instructions .ROUTE .COMPLEX 10/21/20 10/21/20 History simvastatin 40 mg PO HS 10/21/20 10/21/20 History trazodone 100 mg PO HS 10/21/20 10/21/20 History Past Med/Surg History Medical History (Updated 10/21/20 @ 04:28 by Matty Suggs MD) Chronic osteomyelitis Chronic pain of right wrist COPD (chronic obstructive pulmonary disease) Current smoker Fibromyalgia GERD (gastroesophageal reflux disease) History of myocardial infarction in adulthood HTN (hypertension) Hyperlipidemia Lab test negative for COVID-19 virus Long-term use of high-risk medication Nicotine addiction PAD (peripheral artery disease) Paranoia Unspecified psychosis Surgical History (Updated 10/13/20 @ 07:26 by Louie Medina) H/O arthroscopic knee surgery History of cholecystectomy History of mitral valve repair History of tonsillectomy Family History Mother Breast cancer Uncle Diabetes Brother Diabetes Grandfather (Paternal) Diabetes Father Diabetes Grandmother (Maternal) Diabetes Colorectal cancer Social History Smoking Status: Former smoker Tobacco Type: Cigarettes packs per day: 1; Cigarettes Per Day: pack a day; Second Hand Exposure: Yes; Hx Alcohol Use: Yes Alcohol type: beer and wine Hx Substance Use: No Preferred Language: Venezuelan Communication Ability: Effective 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 HEENT--PERRL, EOMI, mucous membranes and oropharynx normal Neck--supple. No JVD. No bruits. Thyroid normal, trachea midline, no adenopathy. Heart--mildly tachycardic, normal S1 and S2. No murmurs, rubs or gallops. Lungs--clear bilaterally, no respiratory distress, no accessory muscle use. Abdomen--normal bowel sounds and soft. Nontender. Nondistended. Extremities--no cyanosis or clubbing. No edema. Dermatologic--normal skin turgor, normal color, no abnormal lymph nodes, no rash. Neurologic--cranial nerves II through XII grossly intact. Rheumatologic--limited exam Psychiatric--sedated Results & Data Results & Data ([facility]) Vital Signs (Past 12 Hours) Vital Signs Temp Pulse Resp BP Pulse Ox 10/21/20 00:15 98.1 F 107 H 16 122/70 98 Laboratory Results Laboratory Results WBC 8.16 K/uL (4.8-10.8) 10/21/20 00:43 RBC 2.97 M/uL (4.2-5.4) L 10/21/20 00:43 Hgb 9.4 g/dL (12.0-16.0) L 10/21/20 00:43 Hct 28.2 % (37-47) L 10/21/20 00:43 MCV 94.9 fL (80-100) 10/21/20 00:43 MCH 31.6 pg (25-34) 10/21/20 00:43 MCHC 33.3 g/dL (32-36) 10/21/20 00:43 RDW Std Deviation 49.9 fL (36.4-46.3) H 10/21/20 00:43 RDW Coeff of Samreen 14.6 % (11.5-14.5) H 10/21/20 00:43 Plt Count 256 K/uL (130-400) 10/21/20 00:43 MPV 9.3 fL (7.4-10.4) 10/21/20 00:43 Immature Gran % (Auto) 0.2 % 10/21/20 00:43 Neut % (Auto) 67.4 % 10/21/20 00:43 Lymph % (Auto) 19.9 % 10/21/20 00:43 [place] % (Auto) 11.4 % 10/21/20 00:43 Eos % (Auto) 0.7 % 10/21/20 00:43 Baso % (Auto) 0.4 % 10/21/20 00:43 Neut # (Auto) 5.50 K/uL (1.4-6.5) 10/21/20 00:43 Lymph # (Auto) 1.62 K/uL (1.2-3.4) 10/21/20 00:43 [place] # (Auto) 0.93 K/uL (0.11-0.59) H 10/21/20 00:43 Eos # (Auto) 0.06 K/uL (0-0.5) 10/21/20 00:43 Baso # (Auto) 0.03 K/uL (0-0.2) 10/21/20 00:43 Immature Gran # (Auto) 0.02 K/uL (0.00-0.02) 10/21/20 00:43 Sodium 139 mmol/L (136-145) 10/21/20 00:43 Potassium 3.8 mmol/L (3.5-5.1) 10/21/20 00:43 Chloride 107 mmol/L (98-107) 10/21/20 00:43 Carbon Dioxide 26 mmol/L (21-32) 10/21/20 00:43 Anion Gap 6.0 (3-11) 10/21/20 00:43 BUN 9 mg/dl (7-18) 10/21/20 00:43 Creatinine 0.74 mg/dl (0.6-1.2) 10/21/20 00:43 Est Cr Clr Drug Dosing 64.7 ml/min 10/21/20 00:43 Est GFR ( Amer) 102.8 ml/min 10/21/20 00:43 Est GFR (Non-Af Amer) 88.7 ml/min 10/21/20 00:43 BUN/Creatinine Ratio 11.9 (10-20) 10/21/20 00:43 Glucose 105 mg/dl (70-99) H 10/21/20 00:43 Calcium 9.3 mg/dl (8.5-10.1) 10/21/20 00:43 Total Bilirubin 0.3 mg/dl (0.2-1) 10/21/20 00:43 AST 14 U/L (15-37) L 10/21/20 00:43 ALT 23 U/L (12-78) 10/21/20 00:43 Alkaline Phosphatase 144 U/L (45-117) H 10/21/20 00:43 Troponin I < 0.015 ng/ml (0-0.045) 10/21/20 00:43 Total Protein 7.4 gm/dl (6.4-8.2) 10/21/20 00:43 Albumin 3.4 gm/dl (3.4-5.0) 10/21/20 00:43 Globulin 4.0 gm/dl (2.5-4.0) 10/21/20 00:43 Albumin/Globulin Ratio 0.9 (0.9-2) 10/21/20 00:43 TSH 4.340 uIu/ml (0.300-4.500) 10/21/20 00:43 Urine Color Yellow 10/21/20 00:40 Urine Appearance Clear (Clear) 10/21/20 00:40 Urine pH 7.5 (4.5-7.5) 10/21/20 00:40 Ur Specific Joshua 1.009 (1.000-1.030) 10/21/20 00:40 Urine Protein Negative (Negative) 10/21/20 00:40 Urine Glucose (UA) Negative (Negative) 10/21/20 00:40 Urine Ketones Negative (Negative) 10/21/20 00:40 Urine Blood 1+ (Negative) H 05/24/21 00:40 Urine Nitrite Negative (Negative) 10/21/20 00:40 Urine Bilirubin Negative (Negative) 10/21/20 00:40 Urine Urobilinogen Negative (Negative) 10/21/20 00:40 Ur Leukocyte Esterase Negative (Negative) 10/21/20 00:40 Urine WBC (Auto) 1-5 /hpf (0-5) 10/21/20 00:40 Urine RBC (Auto) 10-30 /hpf (0-4) H 10/21/20 00:40 U Hyaline Cast (Auto) 0 /lpf (0-5) 10/21/20 00:40 U Epithel Cells (Auto) 10-20 /lpf (0-5) H 10/21/20 00:40 Urine Bacteria (Auto) Negative (Negative) 10/21/20 00:40 Salicylates < 1.7 mg/dl (2.8-20) L 10/21/20 00:43 Urine Opiates Screen Neg (Neg) 10/21/20 00:40 Ur Methadone, Qual Neg (Neg) 10/21/20 00:40 Acetaminophen < 2 ug/ml (10-30) L 10/21/20 00:43 Urine Barbiturates Neg (Neg) 10/21/20 00:40 Ur Phencyclidine (PCP) Neg (Neg) 10/21/20 00:40 U Amphetamin/Meth Scrn Neg (Neg) 10/21/20 00:40 MDMA (Ecstasy) Screen Neg (Neg) 10/21/20 00:40 U Benzodiazepines Scrn Neg (Neg) 10/21/20 00:40 Ur Cocaine Metabolite Neg (Neg) 10/21/20 00:40 U Marijuana (THC) Screen Neg (Neg) 10/21/20 00:40 Ethyl Alcohol mg/dL < 3.0 mg/dl (0-3) 10/21/20 00:43 COVID-19 Eval Order Covid19 [facility]Now [facility] 10/21/20 00:40 SARS-CoV-2, RNA, NAAT NEGATIVE (NEGATIVE) 10/21/20 00:40 Code Status & VTE Plan Code Status Full code VTE Prophylaxis Plan VTE Prophylaxis will be ordered: Yes PG Care Time/CCT Total # of Minutes Spent Total Time Spent with Patient: Total time spent is greater than 50% in coordination of care (as documented) at patient's floor/unit and/or counseling patient: Coding Level of Care Code 59912 OBS Care - Level 3 Diagnoses Intentional drug overdose T50.902A Chronic osteomyelitis M86.60 Hypothyroidism E03.9 Paroxysmal atrial flutter I48.92 HTN (hypertension) I10 Hyperlipidemia E78.5
[2020-10-21] MEDS ORDERED: ACETAMINOPHEN 325 MG TAB PO PRN (05:38)
[2020-10-21] MEDS ORDERED: NITROGLYCERIN SL 0.4 MG/TAB TAB SL PRN (05:38)
[2020-10-21] MEDS ORDERED: ONDANSETRON INJ 2 MG/ML 2 ML VIAL IV PRN (05:38)
[2020-10-21] MEDS ORDERED: LEVOTHYROXINE SODIUM 88 MCG TABLET PO SCH (06:30)
--- NOTE | 2020-10-21 07:07 | XRay Report ---
XR chest 1V portable CLINICAL HISTORY: bilateral pneumonia COMPARISON STUDY: 10/16/2020 FINDINGS: There are postsurgical changes of a midline sternotomy and valvular replacement. There is n o current evidence for failure. There is a small right pleural effusion with associated right basilar atelectasis.[ IMPRESSION: Small right pleural effusion with associated parenchymal opacities, likely atelectatic. ACT 112: Negative or not required by law. Electronically signed by: Vish No M.D. 10/21/2020 7:06 AM
[2020-10-21] MEDS: NSS + 20MEQ KCL 20 MEQ/1,000 ML BAG IV SCH ×2 (08:17→19:32)
[2020-10-21] MEDS: SULFAMETHOXAZOLE/TRIMETHOPRIM DS 800/160MG TAB PO SCH ×2 (08:33→19:32)
[2020-10-21] MEDS ORDERED: dilTIAZem HCL 180 MG CAPCR PO SCH (09:00)
[2020-10-21] MEDS ORDERED: UMECLIDINIUM BROMIDE 62.5MCG/BLISTER 7 PUFFS/INHALER INH SCH (09:00)
[2020-10-21] MEDS ORDERED: OMEGA-3 (PURIFIED FISH OIL) 1 GM CAP PO SCH (09:00)
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
--- NOTE | 2020-10-21 13:36 | Electrocardiogram Report ---
Test Reason : Blood Pressure : / mmHG Vent. Rate : 101 BPM Atrial Rate : 101 BPM P-R Int : 152 ms QRS Dur : 086 ms QT Int : 350 ms P-R-T Axes : 055 006 070 degrees QTc Int : 453 ms Sinus tachycardia Inferior infarct (cited on or before 31-OCT-2010) Nonspecific T wave abnormality Abnormal ECG When compared with ECG of 16-OCT-2020 12:09, Vent. rate has increased BY 45 BPM Nonspecific T wave abnormality now evident in Lateral leads Confirmed by Deepak Vasquez ([id number]) on 10/21/2020 1:36:15 PM Referred By: REFERRED SELF Confirmed By:Deepak Vasquez
[2020-10-21] MEDS ORDERED: levoFLOXacin 750 MG TAB PO SCH (13:50)
[2020-10-21] MEDS: GABAPENTIN 400 MG CAP PO SCH ×2 (15:09→19:33)
[2020-10-21] MEDS ORDERED: APIXABAN 5 MG TABLET PO SCH (21:00)
[2020-10-21] MEDS ORDERED: SIMVASTATIN 40 MG TAB PO SCH (21:00)
[2020-10-21] MEDS ORDERED: GADOBUTROL 65ML VIAL IV ONE (23:26)
--- NOTE | 2020-10-22 00:36 | Communication Note ---
Date of Service: October 22, 2020 Patient returned from MRI. Patient medically clear for discharge to for mental health services. Resident Activity Tracking Resident Involvement: Resident Care Provided and Insurance Follow Up Rep Coverage Note Care Provided: Adult Hospital Medicine
[2020-10-22] MEDS ORDERED: ASPIRIN 81 MG ECTAB PO SCH (09:00)
--- NOTE | 2020-10-22 09:07 | Magnetic Resonance Report ---
MRI OF THE BRAIN WITHOUT AND WITH IV CONTRAST CLINICAL HISTORY: olfactory hallucinations COMPARISON STUDY: No previous studies for comparison. TECHNIQUE: MRI of the brain was performed from the vertex to the skull base utilizing various T1 and T2 weighted sequences. Following the IV administration of mL of Gadavist contrast, additional enhance d images were obtained. FINDINGS: Sagittal T1, axial diffusion, proton density and T2 weighted axial, coronal FLAIR, and pre and post a xial T1-weighted images were acquired. These were supplemented with post gadolinium coronal T1 weight ed images. No intra or extra-axial mass lesions are visualized. Axial diffusion-weighted images reveal no evidence of acute or subacute infarction. There is no evidence of ventricular dilatation. Proton density T2-weighted and FLAIR images reveal minimal increased signal within periventricular wh ite matter surrounding the occipital horns of lateral ventricles and few punctate white matter lesion s within the subcortical aspect of bilateral frontal lobes. There are no abnormal flow voids. Small vascular structure is seen within right parietal lobe which could represent venous anomaly. There is no evidence of pathologic enhancement. Bilateral globes and visualized paranasal sinuses are unremarkable. Increased T2 signal is seen withi n right and left mastoid air cells which could represent fluid collection. IMPRESSION: 1. No acute intracranial hemorrhage, no midline shift or space occupying lesions. 2. No evidence of restricted diffusion to suggest acute ischemia/infarct. 3. Minimal areas of periventricular and subcortical increased T2 FLAIR white matter signal which is nonspecific and might represent minimal chronic small vessel ischemia. 4. Fluid signal within bilateral mastoid air cells which might represent inflammatory process/mastoi ditis. Please correlate above-mentioned findings with clinical presentation and prior history of mast oiditis. 5. No areas of abnormal enhancement. ACT 112: Negative or not required by law. The above report was generated using voice recognition software. It may contain grammatical, syntax o r spelling errors. Electronically signed by: Abigail Plaza DO 10/22/2020 9:05 AM
--- NOTE | 2020-10-22 13:09 | Electrocardiogram Report ---
Test Reason : Blood Pressure : / mmHG Vent. Rate : 093 BPM Atrial Rate : 093 BPM P-R Int : 156 ms QRS Dur : 086 ms QT Int : 368 ms P-R-T Axes : 038 -18 049 degrees QTc Int : 457 ms Normal sinus rhythm Inferior infarct (cited on or before 31-OCT-2010) Poor R wave progression, consider anterior IA vs. lead placement vs. LVH Abnormal ECG When compared with ECG of 21-OCT-2020 00:39, Nonspecific T wave abnormality, improved in Lateral leads Confirmed by Deepak Vasquez ([id number]) on 10/22/2020 1:09:31 PM Referred By: REFERRED SELF Confirmed By:Deepak Vasquez
--- NOTE | 2020-10-22 18:05 | Discharge Summary ---
Date of Service October 21, 2020 Admission HPI Per Admitting Provider The patient is a 60-year-old female with a past medical history including anxiety, paranoid schizophrenia, thoracolumbar degenerative disc disease, atrial flutter with RVR, fibromyalgia, nicotine addiction, unspecified psychosis, anemia, CAD, moderate COPD, chronic pancreatitis, chronic venous insufficiency, GERD without esophagitis, heart valve replacement, bladder hyperactivity, migraine, chronic osteomyelitis of sternum on suppressive antibiotics, PAD and schizophrenia. She was most recently admitted to [facility] from 10/08- 10/17/2020 for atrial flutter with RVR, possible aspiration pneumonia and acute blood loss anemia secondary to bleeding from femoral vein puncture site for EP study. She presents to the ED after having decreased responsiveness after taking all her evening pills at once Admission Exam Per Admitting Provider The patient is sedated, well developed and well nourished, normocephalic and atraumatic, lying in bed and in no acute distress. HEENT--PERRL, EOMI, mucous membranes and oropharynx normal Neck--supple. No JVD. No bruits. Thyroid normal, trachea midline, no adenopathy. Heart--mildly tachycardic, normal S1 and S2. No murmurs, rubs or gallops. Lungs--clear bilaterally, no respiratory distress, no accessory muscle use. Abdomen--normal bowel sounds and soft. Nontender. Nondistended. Extremities--no cyanosis or clubbing. No edema. Dermatologic--normal skin turgor, normal color, no abnormal lymph nodes, no rash. Neurologic--cranial nerves II through XII grossly intact. Rheumatologic--limited exam Psychiatric--sedated Principal Diagnosis Drug overdose Hallucinations Discharge Exam Constitutional well developed and well nourished; no acute distress Eyes + anicteric sclerae; normal pupil size Respiratory normal respiratory effort, lungs clear to auscultation Cardiovascular Rate/Rhythm: regular rhythm and + tachycardic Heart Sounds: no murmur Extremities: normal capillary refill; no calf tenderness and no pedal edema Gastrointestinal (Abdomen) normal bowel sounds, soft, nontender, no hepatosplenomegaly Musculoskeletal no cyanosis or clubbing, extremities motor strength 5/5 Skin no rashes, warm and dry Neurologic moves all extremities and awake; not confused Psychiatric A+Ox3, euthymic affect Genitourinary no CVA tenderness Discharge Data Allergies Allergy/AdvReac Type Severity Reaction Status Date / Time Penicillins Allergy Unknown RASH Verified 10/21/20 00:33 perphenazine Allergy Unknown SWELLING Verified 10/21/20 00:33 ALL OVER BODY prednisone AdvReac Severe not able Verified 10/21/20 00:33 to sleep azithromycin AdvReac Hives Verified 10/21/20 00:33 Consultations 10/21/20 02:44 ED Decision to Admit Stat 10/21/20 05:38 Consult Psychiatry Routine Ordered Studies 10/21/20 18:16 MR brain wo/w con Urgent IMPRESSION: 1. No acute intracranial hemorrhage, no midline shift or space occupying lesions. 2. No evidence of restricted diffusion to suggest acute ischemia/infarct. 3. Minimal areas of periventricular and subcortical increased T2 FLAIR white matter signal which is nonspecific and might represent minimal chronic small vessel ischemia. 4. Fluid signal within bilateral mastoid air cells which might represent inf lammatory process/mastoiditis. Please correlate above-mentioned findings with clinical presentation and prior history of mastoiditis. 5. No areas of abnormal enhancement. Hospital Course (1) Intentional drug overdose: Juliana Bran is a 60-year-old female admitted to [facility] on October 21, 2020 due to overdose of medication and hallucinations. Initial sedation resolved during the day. EKG showed no QTC prolongation. She has an additional 3 days of Levaquin 750 mg p.o. daily left from her previous pneumonia diagnosis on last admission. MRI showed mastoid fluid signal with sinus however the she has no pain in this area to suggest acute mastoiditis. Please continue Bactrim chronically prophylaxis for osteomyelitis. Will defer any continuation or discontinuation of psychiatric medications to behavioral health unit where she is being transferred. (2) Chronic osteomyelitis: (3) Hypothyroidism: (4) Paroxysmal atrial flutter: (5) HTN (hypertension): (6) Hyperlipidemia: Total Time Total Time Spent Total Time Spent (In Minutes): 35 Total Time Includes: Examination of the Patient, Discharge Planning, Medication Reconciliation and Communication With Other Providers Discharge Plan Discharge Items Patient Disposition: Transfer Behavioral Health Fac Reason For Visit: INTENTIONAL RX DRUG OD Discharge Diagnosis: Drug overdose Hallucinations Activity: Resume your previous activity Non-emergency contact: Primary Care Provider Call non-emergency contact if: you have any medication questions and your symptoms worsen Follow-up/Referrals: Peter Lancaster III, MD [Primary Care Provider] - Diet: Regular Addtl Attending Provider Instructions: Juliana Bran is a 60-year-old female admitted to [facility] on October 21, 2020 due to overdose of medication and hallucinations. Initial sedation resolved during the day. EKG showed no QTC prolongation. She has no additional 3 days of Levaquin 750 mg p.o. daily left from her previous pneumonia diagnosis on last admission. Please continue Bactrim chronically prophylaxis for osteomyelitis. Will defer any continuation or discontinuation of psychiatric medications to behavioral health unit where she is being transferred. Pending Studies at Discharge: No Stand-Alone Forms: My [facility] Medications and DC Order Prescriptions: Continued levofloxacin 750 mg Tablet 750 mg PO DAILY@1100 5 Days Qty: 5 RF: 0 sulfamethoxazole-trimethoprim [Bactrim DS] 800-160 mg Tablet 1 tab PO Q12 Qty: 60 RF: 1 diltiazem HCl 180 mg Capsule,Extended Release 24hr 180 mg PO QAM Qty: 30 RF: 2 Eliquis 5 mg Tablet 5 mg PO BID Qty: 60 RF: 2 gabapentin 400 mg capsule 400 mg PO TID Qty: 90 RF: 1 clonazepam 1 mg tablet 0.5 mg PO BID PRN (Reason: anxiety) Qty: 30 RF: 0 aspirin 81 mg tablet,delayed release (DR/EC) 81 mg PO DAILY Qty: 90 RF: 1 albuterol sulfate 90 mcg/actuation HFA aerosol inhaler 2 puff inhalation QID PRN (Reason: shortness of breath or wheezing or cough) Qty: 18 RF: 1 ipratropium bromide 42 mcg (0.06 %) spray,non-aerosol 2 spray intranasal BID Qty: 15 RF: 1 omega-3 fatty acids-fish oil 684-1,200 mg Capsule,Delayed Release(Dr/Ec) 1 cap PO DAILY Qty: 30 RF: 11 tiotropium bromide 2.5 mcg/actuation mist 2 puff inhalation DAILY Qty: 4 RF: 1 levothyroxine [Synthroid] 88 mcg Tablet 88 mcg PO DAILYBB Qty: 30 RF: 2 quetiapine [Seroquel] 200 mg tablet See Rx Instructions .ROUTE .COMPLEX RF: 0 simvastatin 40 mg tablet 40 mg PO HS RF: 0 trazodone 100 mg tablet 100 mg PO HS RF: 0 Discharge Orders: Discharge Order (Routine); Ordered 10/22/20 Ordered By: Yahir Cervantes Admission Data Admit Date/Time: 10/21/20 04:15 Attending Provider: Louie Medina Admit Provider: Matty Suggs Primary Care Provider: Peter Lancaster III Other Providers: Matty Suggs ; Stephanie Pacheco ; Dr Ameya ; Smita Maynard ; Camacho Evans Other Interventions: Discharge Summary Assessment (RN) Last Done: 10/22/20 00:39 Coding Level of Care Code 72339 OBS Care - Discharge Diagnoses Intentional drug overdose T50.902S Encounter type: sequela Chronic osteomyelitis M86.60 Hypothyroidism E03.9 Paroxysmal atrial flutter I48.92 HTN (hypertension) I10 Hyperlipidemia E78.5
== END 2020-10-22 01:00 ==
LOC: 2S 00:13 → ED 00:13 → SUATTDRO 04:15 → 2S 05:05

== ENCOUNTER 2020-10-22 01:04 | Inpatient (IN) ==
[2020-10-22] MEDS ORDERED: MAGNESIUM HYDROXIDE SUSP 30 ML UDC PO PRN (01:15)
[2020-10-22] MEDS ORDERED: clonazePAM 0.5 MG TAB PO PRN (08:31)
[2020-10-22] MEDS ORDERED: ALBUTEROL HFA 8 GM INHALER INH PRN (08:31)
[2020-10-22] MEDS ORDERED: QUEtiapine FUMARATE 100 MG TABLET PO ONE (08:36)
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
[2020-10-22] MEDS: APIXABAN 5 MG TABLET PO SCH ×2 (10:56→22:24)
[2020-10-22] MEDS: dilTIAZem HCL 180 MG CAPCR PO SCH (10:56)
[2020-10-22] MEDS: ASPIRIN 81 MG ECTAB PO SCH (10:56)
[2020-10-22] MEDS: GABAPENTIN 400 MG CAP PO SCH ×3 (10:57→22:24)
[2020-10-22] MEDS: OMEGA-3 (PURIFIED FISH OIL) 1 GM CAP PO SCH (10:58)
[2020-10-22] MEDS: SULFAMETHOXAZOLE/TRIMETHOPRIM DS 800/160MG TAB PO SCH ×2 (10:58→22:25)
[2020-10-22] MEDS: IPRATROPIUM BROMIDE NASAL SPRAY 0.06% 15ML SCH ×2 (10:58→22:24)
[2020-10-22] MEDS: UMECLIDINIUM BROMIDE 62.5MCG/BLISTER 7 PUFFS/INHALER INH SCH (10:58)
[2020-10-22] MEDS: QUEtiapine FUMARATE 200 MG TAB PO SCH ×2 (10:59→22:25)
[2020-10-22] MEDS: levoFLOXacin 750 MG TAB PO SCH (10:59)
[2020-10-22] MEDS ORDERED: clonazePAM 1 MG TAB PO ONE (15:18)
[2020-10-22] MEDS ORDERED: QUEtiapine FUMARATE 100 MG TABLET PO PRN (15:20)
[2020-10-22] MEDS: SIMVASTATIN 40 MG TAB PO SCH (22:25)
[2020-10-22] MEDS: traZODone HCL 100 MG TAB PO SCH (22:25)
[2020-10-23] MEDS: LEVOTHYROXINE SODIUM 88 MCG TABLET PO SCH (07:48)
[2020-10-23] MEDS: APIXABAN 5 MG TABLET PO SCH ×2 (08:42→21:15)
[2020-10-23] MEDS: ASPIRIN 81 MG ECTAB PO SCH (08:42)
[2020-10-23] MEDS: SULFAMETHOXAZOLE/TRIMETHOPRIM DS 800/160MG TAB PO SCH ×2 (08:42→21:16)
[2020-10-23] MEDS: dilTIAZem HCL 180 MG CAPCR PO SCH (08:43)
[2020-10-23] MEDS: OMEGA-3 (PURIFIED FISH OIL) 1 GM CAP PO SCH (08:43)
[2020-10-23] MEDS: GABAPENTIN 400 MG CAP PO SCH ×3 (08:44→21:15)
[2020-10-23] MEDS: QUEtiapine FUMARATE 200 MG TAB PO SCH ×2 (08:44→21:16)
[2020-10-23] MEDS: UMECLIDINIUM BROMIDE 62.5MCG/BLISTER 7 PUFFS/INHALER INH SCH (08:51)
[2020-10-23] MEDS: IPRATROPIUM BROMIDE NASAL SPRAY 0.06% 15ML SCH ×2 (08:51→21:16)
[2020-10-23] MEDS: levoFLOXacin 750 MG TAB PO SCH (11:02)
--- NOTE | 2020-10-23 11:43 | Psychiatric Progress Note ---
Date of Service October 23, 2020 Impression / Recommendations Impression DEANDRE THOMPSON is a 60-year-old F, well known to due to recent admissions, has a history of schizoaffective disorder and a flutter s/p ablation, and was admitted on 10/22/20 01:04 on a 201 voluntary commitment s/p OD and disruptive behavior at [facility]. She was maintained on an outpatient commitment which has been converted to inpatient. Her AMS appears to be resolving but she remains reactive, intrussive, irritable due to paranoia. She is unable to care for herself outside of the hospital. (1) Intentional drug overdose: 10/22/20--?resolving anticholinergic delirium as seems more thought blocked than yesterday. Will need to restart Seroquel at lower dose. Convesion hearing this pm. (2) Schizophrenia: 10/23/20--continue current meds, initiate [facility] referral given failure of CRR. 10/22/20--The patient was [facility] on q15 min checks (behavioral with suicide precautions) for safety. The patient will participate in group, recreational, and milieu therapies and will be offered additional individual and family sessions as clinically appropriate. Risks/benefits/alternatives reviewed re: her current medications, discussion included but was not limited to risks of TD and need for metabolic monitoring. She will start Seroquel at 1/2 total daily dose today and then full dose tomorrow. (3) Bilateral pneumonia: 10/22/20--Continue course of antibiotics started on medical service. Inahlers as ordered. Inventory Assets Strengths: family oriented, accepting of services (compared to initial presentation) Needs: housing Risk Factors Assessment Male: No : Yes Do You Have Access To A Gun?: No Health Problems: Yes Mental Health Diagnoses: Yes Substance Use Disorders: No Previous Attempt: Yes Previous Psychiatric Hospitalization: Yes Protective Factors Assessment Buddhism Beliefs: Yes : No Responsible for Young Children: No Employed: No Interval History Chief Complaint "you all were playing tricks on me yesterday". Review of Systems Sleep Information Total Hours of Sleep: 6.5 Meal Information Percent Meal Consumed - Breakfast: 100 Percent Meal Consumed - Lunch: 25 Percent Meal Consumed - Dinner: 100 Subjective Subjective Patient was seen & assessed and interval progress reviewed with treatment team. Difficult day yesterday as seem confused, thought blocked and accused staff of being other people or paranoid they were laughing at her or "playing games" to manipulate her stay. She is aware and accepting of the outcome of her conversion hearing. She is more cooperative this am but intrussive with peers and not appropriate for groups. Physical Exam Psychiatric Orientation: alert, oriented to person and oriented to place Apperance: + disheveled Eye Contact: + poor eye contact Motor Behavior: steady gait and station Affect: + depressed affect Mood: + depressed mood Thought Process: + concrete thought process Thought Content: + paranoid and + delusions Suicidal Thoughts: denies suicidal thoughts Homicidal Thoughts: denies homicidal thoughts Hallucinations: no auditory hallucinations and no visual hallucinations Cognition: + attention not intact Estimated Intelligence: + below average estimated intelligence Insight: + severely impaired insight Judgement: + severely impaired judgement Vital Signs (Past 24 Hours) Last Vital Signs Temp 36.7 C 10/23/20 06:48 Pulse 93 H 10/23/20 08:52 Resp 16 10/23/20 06:48 BP 122/74 10/23/20 08:52 Results & Data ([facility]) Current Inpatient Medications Current Inpatient Medications: Current Inpatient Medications Acetaminophen (Acetaminophen 325 Mg Tab) 650 mg PO Q4H PRN PRN Reason: Headache or Minor Fever Stop: 11/21/20 01:14 Al Hydrox/Mg Hydrox/Simethicone (Aluminum/Magnesium Susp 30 Ml Udc) 30 ml PO Q4H PRN PRN Reason: GI Upset Stop: 11/21/20 01:14 Albuterol (Albuterol Hfa 8 Gm Inhaler) 2 puffs INH QID PRN; Protocol PRN Reason: shortness of breath or wheezing or cough Stop: 11/21/20 08:30 Apixaban (Apixaban 5 Mg Tablet) 5 mg PO BID DUNIA Stop: 11/21/20 08:59 Last Admin: 10/23/20 08:42 Dose: 5 mg Documented by: Aspirin (Aspirin 81 Mg Ectab) 81 mg PO DAILY DUNIA Stop: 11/21/20 08:59 Last Admin: 10/23/20 08:42 Dose: 81 mg Documented by: Clonazepam (Clonazepam 0.5 Mg Tab) 0.5 mg PO BID PRN PRN Reason: anxiety Stop: 11/21/20 08:30 Last Admin: 10/22/20 17:24 Dose: 0.5 mg Documented by: Diltiazem HCl (Diltiazem Hcl 180 Mg Capcr) 180 mg PO QAM [facility] Stop: 11/21/20 08:59 Last Admin: 10/23/20 08:43 Dose: 180 mg Documented by: Fish Oil ([place]-3 (Purified Fish Oil) 1 Gm Cap) 1 gm PO DAILY DUNIA Stop: 11/21/20 09:44 Last Admin: 10/23/20 08:43 Dose: 1 gm Documented by: Gabapentin (Gabapentin 400 Mg Cap) 400 mg PO TID [facility] Stop: 11/21/20 08:59 Last Admin: 10/23/20 08:44 Dose: 400 mg Documented by: Ipratropium [place] (Ipratropium [place] Nasal [place] 0.06% 15ml) 2 sprays NA BID [facility] Stop: 11/21/20 08:59 Last Admin: 10/23/20 08:51 Dose: Not Given Documented by: Levofloxacin (Levofloxacin 750 Mg Tab) 750 mg PO DAILY@1100 [facility] Stop: 10/26/20 10:59 Last Admin: 10/23/20 11:02 Dose: 750 mg Documented by: Levothyroxine Sodium (Levothyroxine Sodium 88 Mcg Tablet) 88 mcg PO DAILYBB [facility] Stop: 11/22/20 07:59 Last Admin: 10/23/20 07:48 Dose: 88 mcg Documented by: Magnesium Hydroxide (Magnesium Hydroxide Susp 30 Ml Udc) 30 ml PO DAILY PRN PRN Reason: Constipation Stop: 11/21/20 01:14 Quetiapine Fumarate (Quetiapine Fumarate 200 Mg Tab) 200 mg PO DAILY [facility] Stop: 11/21/20 09:59 Last Admin: 10/23/20 08:44 Dose: 200 mg Documented by: Quetiapine Fumarate (Quetiapine Fumarate 200 Mg Tab) 400 mg PO HS [facility] Stop: 11/21/20 21:59 Last Admin: 10/22/20 22:25 Dose: 400 mg Documented by: Quetiapine Fumarate (Quetiapine Fumarate 100 Mg Tablet) 100 mg PO Q6 PRN PRN Reason: Anxiety/Agitation Stop: 11/21/20 17:59 Last Admin: 10/22/20 17:24 Dose: 100 mg Documented by: Simvastatin (Simvastatin 40 Mg Tab) 40 mg PO HS [facility] Stop: 11/21/20 21:59 Last Admin: 10/22/20 22:25 Dose: 40 mg Documented by: Sodium Chloride (Sodium Chloride 0.65% Na Soln 45 Ml ([place])) 1 - 2 sprays NA PRN PRN PRN Reason: Nasal Dryness/Congestion Stop: 11/21/20 01:14 Trazodone HCl (Trazodone Hcl 100 Mg Tab) 100 mg PO HS [facility] Stop: 11/21/20 21:59 Last Admin: 10/22/20 22:25 Dose: 100 mg Documented by: Trimethoprim/Sulfamethoxazole (Sulfamethoxazole/Trimethoprim Ds 800/160mg Tab) 1 tab PO Q12 [facility] Stop: 11/21/20 08:59 Last Admin: 10/23/20 08:42 Dose: 1 tab Documented by: Umeclidinium [place] (Umeclidinium [place] 62.5mcg/Blister 7 Puffs/Inhaler) 1 puffs INH DAILY DUNIA; Protocol Stop: 11/21/20 09:44 Last Admin: 10/23/20 08:51 Dose: Not Given Documented by: Mental Health & Subst Abuse Tx Psychiatrist Name of Psychiatrist: Velvet Sanchez Psychiatrist's Psychiatric Appointment Comment: [address] [facility] Industrial Maintenance Repairer Helper Name of Industrial Maintenance Repairer Helper: [facility] Phone Number for Industrial Maintenance Repairer Helper: [phone] Post Discharge Appointments Primary Care Physician Name Of Family Doctor: MAN - Dr. Lancaster (BENJA OlveraC) Primary Care Provider Appointment Comment: [address] [place] [address] [place] Specialist Name of Specialist: MAN Cardiology - Dr. Ga Villareal Phone Number for Specialist: [phone] Specialty Appointment Comment: [address] [facility], [address], [place] Contact Information Discharge (1) Intentional drug overdose Encounter type: sequela Qualified Code(s): T50.902S - Poisoning by unspecified drugs, medicaments and biological substances, intentional self-harm, sequela (2) Schizophrenia Schizophrenia type: unspecified Qualified Code(s): F20.9 - Schizophrenia, unspecified (3) Bilateral pneumonia Pneumonia type: due to unspecified organism Lung location: upper lobe of lung Qualified Code(s): J18.9 - Pneumonia, unspecified organism
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
[2020-10-23] MEDS: SIMVASTATIN 40 MG TAB PO SCH (21:15)
[2020-10-23] MEDS: traZODone HCL 100 MG TAB PO SCH (21:16)
[2020-10-24] MEDS: LEVOTHYROXINE SODIUM 88 MCG TABLET PO SCH (07:24)
[2020-10-24] MEDS: ASPIRIN 81 MG ECTAB PO SCH (08:55)
[2020-10-24] MEDS: GABAPENTIN 400 MG CAP PO SCH ×3 (08:55→20:36)
[2020-10-24] MEDS: OMEGA-3 (PURIFIED FISH OIL) 1 GM CAP PO SCH (08:56)
[2020-10-24] MEDS: dilTIAZem HCL 180 MG CAPCR PO SCH (08:56)
[2020-10-24] MEDS: QUEtiapine FUMARATE 200 MG TAB PO SCH ×2 (08:56→20:37)
[2020-10-24] MEDS: APIXABAN 5 MG TABLET PO SCH ×2 (08:57→20:36)
[2020-10-24] MEDS: SULFAMETHOXAZOLE/TRIMETHOPRIM DS 800/160MG TAB PO SCH ×2 (08:57→20:36)
[2020-10-24] MEDS: UMECLIDINIUM BROMIDE 62.5MCG/BLISTER 7 PUFFS/INHALER INH SCH (08:58)
[2020-10-24] MEDS: IPRATROPIUM BROMIDE NASAL SPRAY 0.06% 15ML SCH ×2 (08:58→20:44)
[2020-10-24] MEDS: levoFLOXacin 750 MG TAB PO SCH (11:48)
[2020-10-24] MEDS: DOCUSATE SODIUM 100 MG CAP PO SCH ×2 (13:04→20:36)
--- NOTE | 2020-10-24 14:44 | Psychiatric Progress Note ---
Date of Service October 24, 2020 Impression / Recommendations Impression DEANDRE THOMPSON is a 60-year-old F, well known to due to recent admissions, has a history of schizoaffective disorder and a flutter s/p ablation, and was admitted on 10/22/20 01:04 on a 201 voluntary commitment s/p OD and disruptive behavior at [facility]. She was maintained on an outpatient commitment which has been converted to inpatient. Her AMS appears to be resolving but she remains reactive, intrussive, irritable due to paranoia. She is unable to care for herself outside of the hospital and is being referred to [facility]. (1) Intentional drug overdose: 10/24/20--appreciate hospitalist consultation re: tachy yesterday 10/22/20--?resolving anticholinergic delirium as seems more thought blocked than yesterday. Will need to restart Seroquel at lower dose. Conversion hearing this pm. (2) Schizophrenia: 10/24/20--continue current meds 10/23/20--continue current meds, initiate [facility] referral given failure of CRR. 10/22/20--The patient [facility]) on q15 min checks (behavioral with suicide precautions) for safety. The patient will participate in group, recreational, and milieu therapies and will be offered additional individual and family sessions as clinically appropriate. Risks/benefits/alternatives reviewed re: her current medications, discussion included but was not limited to risks of TD and need for metabolic monitoring. She will start Seroquel at 1/2 total daily dose today and then full dose tomorrow. (3) Bilateral pneumonia: 10/24/20--completed course of Levaquin 10/22/20--Continue course of antibiotics started on medical service. Inahlers as ordered. Inventory Assets Strengths: family oriented, accepting of services (compared to initial presentation) Needs: housing Risk Factors Assessment Male: No : Yes Do You Have Access To A Gun?: No Health Problems: Yes Mental Health Diagnoses: Yes Substance Use Disorders: No Previous Attempt: Yes Previous Psychiatric Hospitalization: Yes Protective Factors Assessment Anglican Beliefs: Yes : No Responsible for Young Children: No Employed: No Interval History Chief Complaint "they want to take my SSI but I'm not going to the [facility]". Review of Systems Sleep Information Total Hours of Sleep: 6.5 Meal Information Percent Meal Consumed - Breakfast: 50 Percent Meal Consumed - Lunch: 75 Percent Meal Consumed - Dinner: 95 Subjective Subjective Patient was seen & assessed and interval progress reviewed with nursing and social work. Less paranoid yesterday on day shift but hard to redirect around groups (inappropriate topics and comments) and hasn't been following behavioral contract about items in her room--hoarding books and getting them wet and multiple papers and tissues inside. Writings and stories are nonsensical. Physical Exam Psychiatric Orientation: alert, oriented to person and oriented to place Apperance: + disheveled Eye Contact: + poor eye contact Motor Behavior: steady gait and station and + tremor Affect: + depressed affect Mood: + depressed mood Thought Process: + thought blocking and + concrete thought process Thought Content: + paranoid and + delusions Suicidal Thoughts: denies suicidal thoughts Homicidal Thoughts: denies homicidal thoughts Hallucinations: no auditory hallucinations and no visual hallucinations Cognition: + attention not intact Estimated Intelligence: + below average estimated intelligence Insight: + severely impaired insight Judgement: + severely impaired judgement Vital Signs (Past 24 Hours) Last Vital Signs Temp 36.7 C 10/24/20 06:44 Pulse 106 H 10/24/20 06:45 Resp 16 10/24/20 06:44 BP 109/68 10/24/20 06:45 Results & Data ([facility]) Current Inpatient Medications Current Inpatient Medications: Current Inpatient Medications Acetaminophen (Acetaminophen 325 Mg Tab) 650 mg PO Q4H PRN PRN Reason: Headache or Minor Fever Stop: 11/21/20 01:14 Al Hydrox/Mg Hydrox/Simethicone (Aluminum/Magnesium Susp 30 Ml Udc) 30 ml PO Q4H PRN PRN Reason: GI Upset Stop: 11/21/20 01:14 Albuterol (Albuterol Hfa 8 Gm Inhaler) 2 puffs INH QID PRN; Protocol PRN Reason: shortness of breath or wheezing or cough Stop: 11/21/20 08:30 Apixaban (Apixaban 5 Mg Tablet) 5 mg PO BID [facility] Stop: 11/21/20 08:59 Last Admin: 10/24/20 08:57 Dose: 5 mg Documented by: Aspirin (Aspirin 81 Mg Ectab) 81 mg PO DAILY [facility] Stop: 11/21/20 08:59 Last Admin: 10/24/20 08:55 Dose: 81 mg Documented by: Clonazepam (Clonazepam 0.5 Mg Tab) 0.5 mg PO BID PRN PRN Reason: anxiety Stop: 11/21/20 08:30 Last Admin: 10/22/20 17:24 Dose: 0.5 mg Documented by: Diltiazem HCl (Diltiazem Hcl 180 Mg Capcr) 180 mg PO QAM [facility] Stop: 11/21/20 08:59 Last Admin: 10/24/20 08:56 Dose: 180 mg Documented by: Docusate Sodium (Docusate Sodium 100 Mg Cap) 100 mg PO BID [facility] Stop: 11/23/20 11:59 Last Admin: 10/24/20 13:04 Dose: 100 mg Documented by: Fish Oil ([place]-3 (Purified Fish Oil) 1 Gm Cap) 1 gm PO DAILY [facility] Stop: 11/21/20 09:44 Last Admin: 10/24/20 08:56 Dose: 1 gm Documented by: Gabapentin (Gabapentin 400 Mg Cap) 400 mg PO TID [facility] Stop: 11/21/20 08:59 Last Admin: 10/24/20 13:04 Dose: 400 mg Documented by: Ipratropium [place] (Ipratropium [place] Nasal [place] 0.06% 15ml) 2 sprays NA BID [facility] Stop: 11/21/20 08:59 Last Admin: 10/24/20 08:58 Dose: Not Given Documented by: Levofloxacin (Levofloxacin 750 Mg Tab) 750 mg PO DAILY@1100 [facility] Stop: 10/26/20 10:59 Last Admin: 10/24/20 11:48 Dose: 750 mg Documented by: Levothyroxine Sodium (Levothyroxine Sodium 88 Mcg Tablet) 88 mcg PO DAILYBB [facility] Stop: 11/22/20 07:59 Last Admin: 10/24/20 07:24 Dose: 88 mcg Documented by: Magnesium Hydroxide (Magnesium Hydroxide Susp 30 Ml Udc) 30 ml PO DAILY PRN PRN Reason: Constipation Stop: 11/21/20 01:14 Quetiapine Fumarate (Quetiapine Fumarate 200 Mg Tab) 200 mg PO DAILY [facility] Stop: 11/21/20 09:59 Last Admin: 10/24/20 08:56 Dose: 200 mg Documented by: Quetiapine Fumarate (Quetiapine Fumarate 200 Mg Tab) 400 mg PO HS [facility] Stop: 11/21/20 21:59 Last Admin: 10/23/20 21:16 Dose: 400 mg Documented by: Quetiapine Fumarate (Quetiapine Fumarate 100 Mg Tablet) 100 mg PO Q6 PRN PRN Reason: Anxiety/Agitation Stop: 11/21/20 17:59 Last Admin: 10/22/20 17:24 Dose: 100 mg Documented by: Simvastatin (Simvastatin 40 Mg Tab) 40 mg PO HS [facility] Stop: 11/21/20 21:59 Last Admin: 10/23/20 21:15 Dose: 40 mg Documented by: Sodium Chloride (Sodium Chloride 0.65% Na Soln 45 Ml ([place])) 1 - 2 sprays NA PRN PRN PRN Reason: Nasal Dryness/Congestion Stop: 11/21/20 01:14 Trazodone HCl (Trazodone Hcl 100 Mg Tab) 100 mg PO HS [facility] Stop: 11/21/20 21:59 Last Admin: 10/23/20 21:16 Dose: 100 mg Documented by: Trimethoprim/Sulfamethoxazole (Sulfamethoxazole/Trimethoprim Ds 800/160mg Tab) 1 tab PO Q12 [facility] Stop: 11/21/20 08:59 Last Admin: 10/24/20 08:57 Dose: 1 tab Documented by: Umeclidinium [place] (Umeclidinium [place] 62.5mcg/Blister 7 Puffs/Inhaler) 1 puffs INH DAILY [facility]UNIA; Protocol Stop: 11/21/20 09:44 Last Admin: 10/24/20 08:58 Dose: Not Given Documented by: Mental Health & Subst Abuse Tx Psychiatrist Name of Psychiatrist: Velvet Sanchez Psychiatrist's Psychiatric Appointment Comment: [id number] [facility] Pony Worker Name of Pony Worker: [facility] Phone Number for Pony Worker: [phone] Post Discharge Appointments Primary Care Physician Name Of Family Doctor: MAN Lancaster (JADEN Olvera) Primary Care Provider Appointment Comment: [address] [place] [address] Specialist Name of Specialist: MAN Cardiology - Dr. Ga Villareal Phone Number for Specialist: [phone] Specialty Appointment Comment: [address] [facility], [address] Contact Information Discharge (1) Intentional drug overdose Encounter type: sequela Qualified Code(s): T50.902S - Poisoning by unspecified drugs, medicaments and biological substances, intentional self-harm, sequela (2) Schizophrenia Schizophrenia type: unspecified Qualified Code(s): F20.9 - Schizophrenia, unspecified (3) Bilateral pneumonia Pneumonia type: due to unspecified organism Lung location: upper lobe of lung Qualified Code(s): J18.9 - Pneumonia, unspecified organism
--- NOTE | 2020-10-24 15:19 | Electrocardiogram Report ---
Test Reason : Blood Pressure : / mmHG Vent. Rate : 102 BPM Atrial Rate : 102 BPM P-R Int : 156 ms QRS Dur : 082 ms QT Int : 366 ms P-R-T Axes : 059 -05 034 degrees QTc Int : 477 ms Sinus tachycardia Low voltage QRS Inferior infarct (cited on or before 31-OCT-2010) Poor R wave progression, consider anterior IN vs. lead placement vs. LVH Abnormal ECG When compared with ECG of 21-OCT-2020 14:13, No significant change was found Confirmed by Deepak Vasquez ([id number]) on 10/24/2020 3:18:26 PM Referred By: Stephanie Pacheco Confirmed By:Deepak Vasquez
[2020-10-24] MEDS: SIMVASTATIN 40 MG TAB PO SCH (20:37)
[2020-10-24] MEDS: traZODone HCL 100 MG TAB PO SCH (20:38)
[2020-10-25] MEDS ORDERED: LORazepam 1 MG TAB PO STA (01:05)
[2020-10-25] MEDS: ASPIRIN 81 MG ECTAB PO SCH (09:13)
[2020-10-25] MEDS: APIXABAN 5 MG TABLET PO SCH ×2 (09:13→20:46)
[2020-10-25] MEDS: LEVOTHYROXINE SODIUM 88 MCG TABLET PO SCH (09:13)
[2020-10-25] MEDS: dilTIAZem HCL 180 MG CAPCR PO SCH (09:13)
[2020-10-25] MEDS: DOCUSATE SODIUM 100 MG CAP PO SCH ×2 (09:14→20:46)
[2020-10-25] MEDS: IPRATROPIUM BROMIDE NASAL SPRAY 0.06% 15ML SCH ×2 (09:14→20:50)
[2020-10-25] MEDS: OMEGA-3 (PURIFIED FISH OIL) 1 GM CAP PO SCH (09:14)
[2020-10-25] MEDS: GABAPENTIN 400 MG CAP PO SCH ×3 (09:14→20:46)
[2020-10-25] MEDS: UMECLIDINIUM BROMIDE 62.5MCG/BLISTER 7 PUFFS/INHALER INH SCH (09:15)
[2020-10-25] MEDS: QUEtiapine FUMARATE 200 MG TAB PO SCH ×2 (09:15→20:46)
[2020-10-25] MEDS: SULFAMETHOXAZOLE/TRIMETHOPRIM DS 800/160MG TAB PO SCH ×2 (09:15→20:46)
--- NOTE | 2020-10-25 11:59 | Psychiatric Progress Note ---
Date of Service October 25, 2020 Impression / Recommendations Impression DEANDRE THOMPSON is a 60-year-old F, well known to due to recent admissions, has a history of schizoaffective disorder and a flutter s/p ablation, and was admitted on 10/22/20 01:04 on a 201 voluntary commitment s/p OD and disruptive behavior at [facility]. She was maintained on an outpatient commitment which has been converted to inpatient. Her AMS appears to be resolving but she remains reactive, intrussive, irritable due to paranoia. She is unable to care for herself outside of the hospital and is being referred to [facility]. (1) Intentional drug overdose: 10/24/20--appreciate hospitalist consultation re: tachy yesterday 10/22/20--?resolving anticholinergic delirium as seems more thought blocked than yesterday. Will need to restart Seroquel at lower dose. Conversion hearing this pm. (2) Schizophrenia: 10/25/20--continue current meds but add standing dose of Klonopin with evening meal given diurnal variation in symptoms (primarily anxiety which drives tachy). 10/23/20--continue current meds, initiate [facility] hospital referral given failure of [facility]. 10/22/20--The patient [facility] ([facility] inpatient mental health unit) on q15 min checks (behavioral with suicide precautions) for safety. The patient will participate in group, recreational, and milieu therapies and will be offered additional individual and family sessions as clinically appropriate. Risks/benefits/alternatives reviewed re: her current medications, discussion included but was not limited to risks of TD and need for metabolic monitoring. She will start Seroquel at 1/2 total daily dose today and then full dose tomorrow. (3) Bilateral pneumonia: 10/24/20--completed course of Levaquin 10/22/20--Continue course of antibiotics started on medical service. Inahlers as ordered. Inventory Assets Strengths: family oriented, accepting of services (compared to initial presentation) Needs: housing Risk Factors Assessment Male: No : Yes Do You Have Access To A Gun?: No Health Problems: Yes Mental Health Diagnoses: Yes Substance Use Disorders: No Previous Attempt: Yes Previous Psychiatric Hospitalization: Yes Protective Factors Assessment Worship Beliefs: Yes : No Responsible for Young Children: No Employed: No Interval History Chief Complaint "I'm good today but you guys shouldn't do that to me."--referring to security being on unit, will not accept they weren't for her. Review of Systems Sleep Information Total Hours of Sleep: 4.25 Meal Information Percent Meal Consumed - Breakfast: 25 Percent Meal Consumed - Lunch: 75 Percent Meal Consumed - Dinner: 95 Subjective Subjective Patient was seen & assessed and interval progress reviewed with treatment team. Clearer this am, drawing, continues to report smelling smoke. c/o tachy when becomes overstimulated. Seems to have a harder time on evening shift. perseverated on snack. med compliant. Physical Exam Psychiatric Orientation: alert Apperance: appropriately groomed Eye Contact: + fair eye contact Motor Behavior: + tremor Speech: normal rate/rhythm/volume of speech Affect: + constricted affect Mood: + irritable mood Thought Process: + concrete thought process Thought Content: + paranoid and + delusions Suicidal Thoughts: denies suicidal thoughts Homicidal Thoughts: denies homicidal thoughts Hallucinations: no auditory hallucinations and no visual hallucinations Cognition: + attention not intact Estimated Intelligence: consistent with education level Insight: + impaired insight Judgement: + impaired judgement Vital Signs (Past 24 Hours) Last Vital Signs Temp 36.4 C 10/24/20 20:05 Pulse 111 H 10/25/20 09:19 Resp 16 10/24/20 06:44 BP 145/74 H 10/25/20 09:19 Results & Data ([facility]) Current Inpatient Medications Current Inpatient Medications: Current Inpatient Medications Acetaminophen (Acetaminophen 325 Mg Tab) 650 mg PO Q4H PRN PRN Reason: Headache or Minor Fever Stop: 11/21/20 01:14 Al Hydrox/Mg Hydrox/Simethicone (Aluminum/Magnesium Susp 30 Ml Udc) 30 ml PO Q4H PRN PRN Reason: GI Upset Stop: 11/21/20 01:14 Albuterol (Albuterol Hfa 8 Gm Inhaler) 2 puffs INH QID PRN; Protocol PRN Reason: shortness of breath or wheezing or cough Stop: 11/21/20 08:30 Apixaban (Apixaban 5 Mg Tablet) 5 mg PO BID DUNIA Stop: 11/21/20 08:59 Last Admin: 10/25/20 09:13 Dose: 5 mg Documented by: Aspirin (Aspirin 81 Mg Ectab) 81 mg PO DAILY DUNIA Stop: 11/21/20 08:59 Last Admin: 10/25/20 09:13 Dose: 81 mg Documented by: Clonazepam (Clonazepam 0.5 Mg Tab) 0.5 mg PO BID PRN PRN Reason: anxiety Stop: 11/21/20 08:30 Last Admin: 10/22/20 17:24 Dose: 0.5 mg Documented by: Diltiazem HCl (Diltiazem Hcl 180 Mg Capcr) 180 mg PO QAM DUNIA Stop: 11/21/20 08:59 Last Admin: 10/25/20 09:13 Dose: 180 mg Documented by: Docusate Sodium (Docusate Sodium 100 Mg Cap) 100 mg PO BID DUNIA Stop: 11/23/20 11:59 Last Admin: 10/25/20 09:14 Dose: 100 mg Documented by: Fish Oil ([place]-3 (Purified Fish Oil) 1 Gm Cap) 1 gm PO DAILY DUNIA Stop: 11/21/20 09:44 Last Admin: 10/25/20 09:14 Dose: 1 gm Documented by: Gabapentin (Gabapentin 400 Mg Cap) 400 mg PO TID DUNIA Stop: 11/21/20 08:59 Last Admin: 10/25/20 09:14 Dose: 400 mg Documented by: Ipratropium [place] (Ipratropium [place] Nasal [place] 0.06% 15ml) 2 sprays NA BID DUNIA Stop: 11/21/20 08:59 Last Admin: 10/25/20 09:14 Dose: Not Given Documented by: Levothyroxine Sodium (Levothyroxine Sodium 88 Mcg Tablet) 88 mcg PO DAILYBB DUNIA Stop: 11/22/20 07:59 Last Admin: 10/25/20 09:13 Dose: 88 mcg Documented by: Magnesium Hydroxide (Magnesium Hydroxide Susp 30 Ml Udc) 30 ml PO DAILY PRN PRN Reason: Constipation Stop: 11/21/20 01:14 Quetiapine Fumarate (Quetiapine Fumarate 200 Mg Tab) 200 mg PO DAILY DUNIA Stop: 11/21/20 09:59 Last Admin: 10/25/20 09:15 Dose: 200 mg Documented by: Quetiapine Fumarate (Quetiapine Fumarate 200 Mg Tab) 400 mg PO HS DUNIA Stop: 11/21/20 21:59 Last Admin: 10/24/20 20:37 Dose: 400 mg Documented by: Quetiapine Fumarate (Quetiapine Fumarate 100 Mg Tablet) 100 mg PO Q6 PRN PRN Reason: Anxiety/Agitation Stop: 11/21/20 17:59 Last Admin: 10/22/20 17:24 Dose: 100 mg Documented by: Simvastatin (Simvastatin 40 Mg Tab) 40 mg PO HS DUNIA Stop: 11/21/20 21:59 Last Admin: 10/24/20 20:37 Dose: 40 mg Documented by: Sodium Chloride (Sodium Chloride 0.65% Na Soln 45 Ml ([place])) 1 - 2 sprays NA PRN PRN PRN Reason: Nasal Dryness/Congestion Stop: 11/21/20 01:14 Trazodone HCl (Trazodone Hcl 100 Mg Tab) 100 mg PO HS DUNIA Stop: 11/21/20 21:59 Last Admin: 10/24/20 20:38 Dose: 100 mg Documented by: Trimethoprim/Sulfamethoxazole (Sulfamethoxazole/Trimethoprim Ds 800/160mg Tab) 1 tab PO Q12 DUNIA Stop: 11/21/20 08:59 Last Admin: 10/25/20 09:15 Dose: 1 tab Documented by: Umeclidinium [place] (Umeclidinium [place] 62.5mcg/Blister 7 Puffs/Inhaler) 1 puffs INH DAILY DUNIA; Protocol Stop: 11/21/20 09:44 Last Admin: 10/25/20 09:15 Dose: Not Given Documented by: Mental Health & Subst Abuse Tx Psychiatrist Name of Psychiatrist: Velvet Sanchez Psychiatrist's Psychiatric Appointment Comment: [id number] [facility] Editing Intern Name of Editing Intern: [facility] [place] Phone Number for Editing Intern: [phone] Post Discharge Appointments Primary Care Physician Name Of Family Doctor: MAN Lancaster (BENJA OlveraC) Primary Care Provider Appointment Comment: [address] [place] [address] Roxanne Paredesefonte Specialist Name of Specialist: MAN Cardiology - Dr. Ga Villareal Phone Number for Specialist: [phone] Specialty Appointment Comment: [address] [facility], [address], [place] Contact Information Discharge (1) Intentional drug overdose Encounter type: sequela Qualified Code(s): T50.902S - Poisoning by unspecified drugs, medicaments and biological substances, intentional self-harm, sequela (2) Schizophrenia Schizophrenia type: unspecified Qualified Code(s): F20.9 - Schizophrenia, unspecified (3) Bilateral pneumonia Pneumonia type: due to unspecified organism Lung location: upper lobe of lung Qualified Code(s): J18.9 - Pneumonia, unspecified organism
[2020-10-25] MEDS ORDERED: clonazePAM 0.5 MG TAB PO PRN (12:01)
[2020-10-25] MEDS: clonazePAM 0.5 MG TAB PO SCH (16:42)
[2020-10-25] MEDS: traZODone HCL 100 MG TAB PO SCH (20:47)
[2020-10-25] MEDS: SIMVASTATIN 40 MG TAB PO SCH (20:47)
[2020-10-26] MEDS: ASPIRIN 81 MG ECTAB PO SCH (07:58)
[2020-10-26] MEDS: DOCUSATE SODIUM 100 MG CAP PO SCH ×2 (07:59→21:16)
[2020-10-26] MEDS: dilTIAZem HCL 180 MG CAPCR PO SCH (07:59)
[2020-10-26] MEDS: LEVOTHYROXINE SODIUM 88 MCG TABLET PO SCH (07:59)
[2020-10-26] MEDS: APIXABAN 5 MG TABLET PO SCH ×2 (07:59→21:16)
[2020-10-26] MEDS: GABAPENTIN 400 MG CAP PO SCH ×3 (08:00→21:16)
[2020-10-26] MEDS: SULFAMETHOXAZOLE/TRIMETHOPRIM DS 800/160MG TAB PO SCH ×2 (08:00→21:16)
[2020-10-26] MEDS: QUEtiapine FUMARATE 200 MG TAB PO SCH ×2 (08:00→21:16)
[2020-10-26] MEDS: OMEGA-3 (PURIFIED FISH OIL) 1 GM CAP PO SCH (08:00)
[2020-10-26] MEDS: IPRATROPIUM BROMIDE NASAL SPRAY 0.06% 15ML SCH ×2 (08:07→21:18)
[2020-10-26] MEDS: UMECLIDINIUM BROMIDE 62.5MCG/BLISTER 7 PUFFS/INHALER INH SCH (08:07)
--- NOTE | 2020-10-26 14:24 | Psychiatric Progress Note ---
Date of Service October 26, 2020 Impression / Recommendations Impression DEANDRE THOMPSON is a 60-year-old F, well known to due to recent admissions, has a history of schizoaffective disorder and a flutter s/p ablation, and was admitted on 10/22/20 01:04 on a 201 voluntary commitment s/p OD and disruptive behavior at [facility]. She was maintained on an outpatient commitment which has been converted to inpatient. Her AMS appears to be resolving but she remains reactive, intrussive, irritable due to paranoia. She is unable to care for herself outside of the hospital and is being referred to [facility]. (1) Intentional drug overdose: 10/26/2020table at this time 10/24/20--appreciate hospitalist consultation re: tachy yesterday 10/22/20--?resolving anticholinergic delirium as seems more thought blocked than yesterday. Will need to restart Seroquel at lower dose. Conversion hearing this pm. (2) Schizophrenia: 10/26/2020atient continues on 200 mg of Seroquel p.o. every morning, 40 mg of cervical p.o. nightly. Seems to be making improvements on this current dosing. 10/25/20--continue current meds but add standing dose of Klonopin with evening meal given diurnal variation in symptoms (primarily anxiety which drives tachy). 10/23/20--continue current meds, initiate [facility] hospital [facility] given [facility] of [facility]. 10/22/20--The [facility]) on q15 min checks (behavioral with suicide precautions) for safety. The patient will participate in group, recreational, and milieu therapies and will be offered additional individual and family sessions as clinically appropriate. Risks/benefits/alternatives reviewed re: her current medications, discussion included but was not limited to risks of TD and need for metabolic monitoring. She will start Seroquel at 1/2 total daily dose today and then full dose tomorrow. (3) Bilateral pneumonia: 10/24/20--completed course of Levaquin 10/22/20--Continue course of antibiotics started on medical service. Inahlers as ordered. Inventory Assets Strengths: family oriented, accepting of services (compared to initial presentation) Needs: housing Risk Factors Assessment Male: No : Yes Do You Have Access To A Gun?: No Health Problems: Yes Mental Health Diagnoses: Yes Substance Use Disorders: No Previous Attempt: Yes Previous Psychiatric Hospitalization: Yes Protective Factors Assessment Orthodoxy Beliefs: Yes : No Responsible for Young Children: No Employed: No Interval History Chief Complaint "I did not like that place, it was like a mansion". Review of Systems Sleep Information Total Hours of Sleep: 8 Sleep Comments: Please see nurse notes. Meal Information Percent Meal Consumed - Breakfast: 25 Percent Meal Consumed - Lunch: 100 Percent Meal Consumed - Dinner: 95 Nutrition Comment: 100 Subjective Subjective Patient was seen & assessed and interval progress reviewed with treatment team nursing and social work Patient seen this afternoon in the activity room. She was listening to music and collecting books to take back to her room. Patient reports feeling okay. She states that she is still somewhat bothered by her recent experience at the [facility] housing. She states that she is happy to be back here on the unit. She does report hallucinations which prompted her readmission, in addition to reporting some distressed by her living situation, lack of contact with her dog. Despite this patient denied any paranoia or other psychotic symptoms. She denies any side effects of the medication, no side effects observed or reported. Physical Exam Psychiatric Orientation: alert, oriented to person and oriented to place Apperance: appropriately groomed and + disheveled Eye Contact: + fair eye contact and + poor eye contact Motor Behavior: steady gait and station and + tremor Speech: normal rate/rhythm/volume of speech Affect: + depressed affect and + constricted affect Mood: + depressed mood and + irritable mood Thought Process: + thought blocking and + concrete thought process Thought Content: + paranoid and + delusions Suicidal Thoughts: denies suicidal thoughts Homicidal Thoughts: denies homicidal thoughts Hallucinations: no auditory hallucinations and no visual hallucinations Cognition: + attention not intact Estimated Intelligence: consistent with education level and + below average estimated intelligence Insight: + impaired insight and + severely impaired insight Judgement: + impaired judgement and + severely impaired judgement Vital Signs (Past 24 Hours) Last Vital Signs Temp 36.6 C 10/26/20 06:00 Pulse 101 H 10/26/20 06:32 Resp 16 10/26/20 06:00 BP 107/75 10/26/20 06:32 Constitutional WD/WN, vitals as above Eyes + anicteric sclerae; normal pupil size ENMT external ear and nose normal, oropharynx normal Respiratory normal respiratory effort, lungs clear to auscultation Cardiovascular Rate/Rhythm: regular rhythm and + tachycardic Heart Sounds: no murmur Vessels: no JVD Extremities: normal capillary refill; no pedal edema Gastrointestinal (Abdomen) normal bowel sounds, soft, nontender, no hepatosplenomegaly Skin no rashes, warm and dry Neurologic moves all extremities and awake; not confused Results & Data ([facility]) Current Inpatient Medications Current Inpatient Medications: Current Inpatient Medications Acetaminophen (Acetaminophen 325 Mg Tab) 650 mg PO Q4H PRN PRN Reason: Headache or Minor Fever Stop: 11/21/20 01:14 Al Hydrox/Mg Hydrox/Simethicone (Aluminum/Magnesium Susp 30 Ml Udc) 30 ml PO Q4H PRN PRN Reason: GI Upset Stop: 11/21/20 01:14 Albuterol (Albuterol Hfa 8 Gm Inhaler) 2 puffs INH QID PRN; Protocol PRN Reason: shortness of breath or wheezing or cough Stop: 11/21/20 08:30 Apixaban (Apixaban 5 Mg Tablet) 5 mg PO BID [facility] Stop: 11/21/20 08:59 Last Admin: 10/26/20 07:59 Dose: 5 mg Documented by: Aspirin (Aspirin 81 Mg Ectab) 81 mg PO DAILY DUNIA Stop: 11/21/20 08:59 Last Admin: 10/26/20 07:58 Dose: 81 mg Documented by: Clonazepam (Clonazepam 0.5 Mg Tab) 0.5 mg PO BID PRN PRN Reason: Anxiety Stop: 11/24/20 11:58 Clonazepam (Clonazepam 0.5 Mg Tab) 0.5 mg PO DAILYBD [facility] Stop: 11/24/20 17:14 Last Admin: 10/25/20 16:42 Dose: 0.5 mg Documented by: Diltiazem HCl (Diltiazem Hcl 180 Mg Capcr) 180 mg PO QAM [facility] Stop: 11/21/20 08:59 Last Admin: 10/26/20 07:59 Dose: 180 mg Documented by: Docusate Sodium (Docusate Sodium 100 Mg Cap) 100 mg PO BID DUNIA Stop: 11/23/20 11:59 Last Admin: 10/26/20 07:59 Dose: 100 mg Documented by: Fish Oil ([place]-3 (Purified Fish Oil) 1 Gm Cap) 1 gm PO DAILY DUNIA Stop: 11/21/20 09:44 Last Admin: 10/26/20 08:00 Dose: 1 gm Documented by: Gabapentin (Gabapentin 400 Mg Cap) 400 mg PO TID DUNIA Stop: 11/21/20 08:59 Last Admin: 10/26/20 13:36 Dose: 400 mg Documented by: Ipratropium [place] (Ipratropium [place] Nasal [place] 0.06% 15ml) 2 sprays NA BID DUNIA Stop: 11/21/20 08:59 Last Admin: 10/26/20 08:07 Dose: Not Given Documented by: Levothyroxine Sodium (Levothyroxine Sodium 88 Mcg Tablet) 88 mcg PO DAILYBB [facility] Stop: 11/22/20 07:59 Last Admin: 10/26/20 07:59 Dose: 88 mcg Documented by: Magnesium Hydroxide (Magnesium Hydroxide Susp 30 Ml Udc) 30 ml PO DAILY PRN PRN Reason: Constipation Stop: 11/21/20 01:14 Quetiapine Fumarate (Quetiapine Fumarate 200 Mg Tab) 200 mg PO DAILY DUNIA Stop: 11/21/20 09:59 Last Admin: 10/26/20 08:00 Dose: 200 mg Documented by: Quetiapine Fumarate (Quetiapine Fumarate 200 Mg Tab) 400 mg PO HS [facility] Stop: 11/21/20 21:59 Last Admin: 10/25/20 20:46 Dose: 400 mg Documented by: Quetiapine Fumarate (Quetiapine Fumarate 100 Mg Tablet) 100 mg PO Q6 PRN PRN Reason: Anxiety/Agitation Stop: 11/21/20 17:59 Last Admin: 10/22/20 17:24 Dose: 100 mg Documented by: Simvastatin (Simvastatin 40 Mg Tab) 40 mg PO HS [facility] Stop: 11/21/20 21:59 Last Admin: 10/25/20 20:47 Dose: 40 mg Documented by: Sodium Chloride (Sodium Chloride 0.65% Na Soln 45 Ml ([place])) 1 - 2 sprays NA PRN PRN PRN Reason: Nasal Dryness/Congestion Stop: 11/21/20 01:14 Trazodone HCl (Trazodone Hcl 100 Mg Tab) 100 mg PO HS [facility] Stop: 11/21/20 21:59 Last Admin: 10/25/20 20:47 Dose: 100 mg Documented by: Trimethoprim/Sulfamethoxazole (Sulfamethoxazole/Trimethoprim Ds 800/160mg Tab) 1 tab PO Q12 DUNIA Stop: 11/21/20 08:59 Last Admin: 10/26/20 08:00 Dose: 1 tab Documented by: Umeclidinium [place] (Umeclidinium [place] 62.5mcg/Blister 7 Puffs/Inhaler) 1 puffs INH DAILY DUNIA; Protocol Stop: 11/21/20 09:44 Last Admin: 10/26/20 08:07 Dose: Not Given Documented by: Mental Health & Subst Abuse Tx Psychiatrist Name of Psychiatrist: Velvet Sanchez Psychiatrist's Psychiatric Appointment Comment: [address] Jailkeeper Name of Jailkeeper: [facility] [place] Phone Number for Jailkeeper: [phone] Post Discharge Appointments Primary Care Physician Name Of Family Doctor: MAN - Dr. Lancaster (BENJA OlveraC) Primary Care Provider Appointment Comment: [address] [place], [place] [address] Specialist Name of Specialist: MAN Cardiology - Dr. Ga Villareal Phone Number for Specialist: [phone] Specialty Appointment Comment: [address] [facility], [address], [place] Contact Information Discharge (1) Intentional drug overdose Encounter type: sequela Qualified Code(s): T50.902S - Poisoning by unspecified drugs, medicaments and biological substances, intentional self-harm, sequela (2) Schizophrenia Schizophrenia type: unspecified Qualified Code(s): F20.9 - Schizophrenia, unspecified (3) Bilateral pneumonia Pneumonia type: due to unspecified organism Lung location: upper lobe of lung Qualified Code(s): J18.9 - Pneumonia, unspecified organism
[2020-10-26] MEDS: clonazePAM 0.5 MG TAB PO SCH (16:55)
[2020-10-26] MEDS: traZODone HCL 100 MG TAB PO SCH (21:16)
[2020-10-26] MEDS: SIMVASTATIN 40 MG TAB PO SCH (21:16)
[2020-10-27] MEDS: QUEtiapine FUMARATE 200 MG TAB PO SCH ×2 (07:54→20:43)
[2020-10-27] MEDS: LEVOTHYROXINE SODIUM 88 MCG TABLET PO SCH (07:54)
[2020-10-27] MEDS: ASPIRIN 81 MG ECTAB PO SCH (07:54)
[2020-10-27] MEDS: APIXABAN 5 MG TABLET PO SCH ×2 (07:54→20:43)
[2020-10-27] MEDS: SULFAMETHOXAZOLE/TRIMETHOPRIM DS 800/160MG TAB PO SCH ×2 (07:55→20:43)
[2020-10-27] MEDS: dilTIAZem HCL 180 MG CAPCR PO SCH (07:55)
[2020-10-27] MEDS: OMEGA-3 (PURIFIED FISH OIL) 1 GM CAP PO SCH (07:55)
[2020-10-27] MEDS: GABAPENTIN 400 MG CAP PO SCH ×3 (07:56→20:43)
[2020-10-27] MEDS: DOCUSATE SODIUM 100 MG CAP PO SCH ×2 (07:56→20:43)
[2020-10-27] MEDS: PSYLLIUM 58.6% POWDER PACKET PO SCH (07:57)
[2020-10-27] MEDS: IPRATROPIUM BROMIDE NASAL SPRAY 0.06% 15ML SCH ×2 (07:57→20:47)
[2020-10-27] MEDS: UMECLIDINIUM BROMIDE 62.5MCG/BLISTER 7 PUFFS/INHALER INH SCH (07:57)
--- NOTE | 2020-10-27 10:50 | Psychiatric Progress Note ---
Date of Service October 27, 2020 Impression / Recommendations Impression DEANDRE THOMPSON is a 60-year-old F, well known to due to recent admissions, has a history of schizoaffective disorder and a flutter s/p ablation, and was admitted on 10/22/20 01:04 on a 201 voluntary commitment s/p OD and disruptive behavior at [facility]. She was maintained on an outpatient commitment which has been converted to inpatient. Her AMS appears to be resolving but she remains reactive, intrussive, irritable due to paranoia. She is unable to care for herself outside of the hospital and is being referred to [facility]. (1) Intentional drug overdose: 10/26/2020table at this time 10/24/20--appreciate hospitalist consultation re: tachy yesterday 10/22/20--?resolving anticholinergic delirium as seems more thought blocked than yesterday. Will need to restart Seroquel at lower dose. Conversion hearing this pm. (2) Schizophrenia: 10/27/2020atient continues on 200 mg of Seroquel p.o. every morning, 400 mg of seroquel p.o. nightly. Seems to be making improvements on this current dosing. 10/25/20--continue current meds but add standing dose of Klonopin with evening meal given diurnal variation in symptoms (primarily anxiety which drives tachy). 10/23/20--continue current meds, initiate state hospital referral given failure of [facility]. 10/22/20--The patient was admitted to the [facility] ([facility] mental health unit) on q15 min checks (behavioral with suicide precautions) for safety. The patient will participate in group, recreational, and milieu therapies and will be offered additional individual and family sessions as clinically appropriate. Risks/benefits/alternatives reviewed re: her current medications, discussion included but was not limited to risks of TD and need for metabolic monitoring. She will start Seroquel at 1/2 total daily dose today and then full dose tomorrow. (3) Bilateral pneumonia: 10/24/20--completed course of Levaquin 10/22/20--Continue course of antibiotics started on medical service. Inahlers as ordered. Inventory Assets Strengths: family oriented, accepting of services (compared to initial presentation) Needs: housing Risk Factors Assessment Male: No : Yes Do You Have Access To A Gun?: No Health Problems: Yes Mental Health Diagnoses: Yes Substance Use Disorders: No Previous Attempt: Yes Previous Psychiatric Hospitalization: Yes Protective Factors Assessment Sabianism Beliefs: Yes : No Responsible for Young Children: No Employed: No Interval History Chief Complaint "I'm okay, good morning". Review of Systems Sleep Information Total Hours of Sleep: 7.5 Sleep Comments: Please see nurse notes. Meal Information Percent Meal Consumed - Breakfast: 100 Percent Meal Consumed - Lunch: 100 Percent Meal Consumed - Dinner: 95 Nutrition Comment: per meal record Subjective Subjective Patient was seen & assessed and interval progress reviewed with treatment team nursing and social work Patient reports a good night of sleep. Eating meals and appears to order a good amount of food. spoken to regarding hoarding behaviors. Regarding mood, patient reports improvement. She states that she is feeling better with regard to mood, however she is focused on her living situation and past wrongs that were done to her. Admits to occasional gustatory hallucinations. Patient continues to show poor boundaries and is intrusive with peers and staff. still paranoid at times Physical Exam Psychiatric Orientation: alert, oriented to person and oriented to place Apperance: appropriately groomed and + disheveled Eye Contact: + fair eye contact and + poor eye contact Motor Behavior: steady gait and station and + tremor Speech: normal rate/rhythm/volume of speech Affect: + depressed affect and + constricted affect Mood: + depressed mood and + irritable mood Thought Process: + thought blocking and + concrete thought process Thought Content: + paranoid and + delusions Suicidal Thoughts: denies suicidal thoughts Homicidal Thoughts: denies homicidal thoughts Hallucinations: no auditory hallucinations and no visual hallucinations Cognition: + attention not intact Estimated Intelligence: consistent with education level and + below average estimated intelligence Insight: + impaired insight and + severely impaired insight Judgement: + impaired judgement and + severely impaired judgement Vital Signs (Past 24 Hours) Last Vital Signs Temp 36.6 C 10/27/20 06:00 Pulse 108 H 10/27/20 06:28 Resp 16 10/27/20 06:00 BP 110/70 10/27/20 06:28 Constitutional WD/WN, vitals as above Eyes + anicteric sclerae; normal pupil size ENMT external ear and nose normal, oropharynx normal Respiratory normal respiratory effort, lungs clear to auscultation Cardiovascular Rate/Rhythm: regular rhythm and + tachycardic Heart Sounds: no murmur Vessels: no JVD Extremities: normal capillary refill; no pedal edema Gastrointestinal (Abdomen) normal bowel sounds, soft, nontender, no hepatosplenomegaly Skin no rashes, warm and dry Neurologic moves all extremities and awake; not confused Results & Data ([facility]) Current Inpatient Medications Current Inpatient Medications: Current Inpatient Medications Acetaminophen (Acetaminophen 325 Mg Tab) 650 mg PO Q4H PRN PRN Reason: Headache or Minor Fever Stop: 11/21/20 01:14 Al Hydrox/Mg Hydrox/Simethicone (Aluminum/Magnesium Susp 30 Ml Udc) 30 ml PO Q4H PRN PRN Reason: GI Upset Stop: 11/21/20 01:14 Albuterol (Albuterol Hfa 8 Gm Inhaler) 2 puffs INH QID PRN; Protocol PRN Reason: shortness of breath or wheezing or cough Stop: 11/21/20 08:30 Apixaban (Apixaban 5 Mg Tablet) 5 mg PO BID DUNIA Stop: 11/21/20 08:59 Last Admin: 10/27/20 07:54 Dose: 5 mg Documented by: Aspirin (Aspirin 81 Mg Ectab) 81 mg PO DAILY DUNIA Stop: 11/21/20 08:59 Last Admin: 10/27/20 07:54 Dose: 81 mg Documented by: Clonazepam (Clonazepam 0.5 Mg Tab) 0.5 mg PO BID PRN PRN Reason: Anxiety Stop: 11/24/20 11:58 Clonazepam (Clonazepam 0.5 Mg Tab) 0.5 mg PO DAILYBD [facility] Stop: 11/24/20 17:14 Last Admin: 10/26/20 16:55 Dose: 0.5 mg Documented by: Diltiazem HCl (Diltiazem Hcl 180 Mg Capcr) 180 mg PO QAM [facility]UN[facility] Stop: 11/21/20 08:59 Last Admin: 10/27/20 07:55 Dose: 180 mg Documented by: Docusate Sodium (Docusate Sodium 100 Mg Cap) 100 mg PO BID DUNIA Stop: 11/23/20 11:59 Last Admin: 10/27/20 07:56 Dose: 100 mg Documented by: Fish Oil ([place]-3 (Purified Fish Oil) 1 Gm Cap) 1 gm PO DAILY DUNIA Stop: 11/21/20 09:44 Last Admin: 10/27/20 07:55 Dose: 1 gm Documented by: Gabapentin (Gabapentin 400 Mg Cap) 400 mg PO TID [facility] Stop: 11/21/20 08:59 Last Admin: 10/27/20 07:56 Dose: 400 mg Documented by: Ipratropium [place] (Ipratropium [place] Nasal [place] 0.06% 15ml) 2 sprays NA BID [facility] Stop: 11/21/20 08:59 Last Admin: 10/27/20 07:57 Dose: Not Given Documented by: Levothyroxine Sodium (Levothyroxine Sodium 88 Mcg Tablet) 88 mcg PO DAILYBB [facility] Stop: 11/22/20 07:59 Last Admin: 10/27/20 07:54 Dose: 88 mcg Documented by: Magnesium Hydroxide (Magnesium Hydroxide Susp 30 Ml Udc) 30 ml PO DAILY PRN PRN Reason: Constipation Stop: 11/21/20 01:14 Psyllium Hydrophilic Mucilloid (Psyllium 58.6% Powder Packet) 1 pkt PO QAM [facility] Stop: 11/26/20 08:59 Last Admin: 10/27/20 07:57 Dose: 1 pkt Documented by: Quetiapine Fumarate (Quetiapine Fumarate 200 Mg Tab) 200 mg PO DAILY [facility] Stop: 11/21/20 09:59 Last Admin: 10/27/20 07:54 Dose: 200 mg Documented by: Quetiapine Fumarate (Quetiapine Fumarate 200 Mg Tab) 400 mg PO [facility] Stop: 11/21/20 21:59 Last Admin: 10/26/20 21:16 Dose: 400 mg Documented by: Quetiapine Fumarate (Quetiapine Fumarate 100 Mg Tablet) 100 mg PO Q6 PRN PRN Reason: Anxiety/Agitation Stop: 11/21/20 17:59 Last Admin: 10/22/20 17:24 Dose: 100 mg Documented by: Simvastatin (Simvastatin 40 Mg Tab) 40 mg PO [facility] Stop: 11/21/20 21:59 Last Admin: 10/26/20 21:16 Dose: 40 mg Documented by: Sodium Chloride (Sodium Chloride 0.65% Na Soln 45 Ml ([place])) 1 - 2 sprays NA PRN PRN PRN Reason: Nasal Dryness/Congestion Stop: 11/21/20 01:14 Trazodone HCl (Trazodone Hcl 100 Mg Tab) 100 mg PO [facility] Stop: 11/21/20 21:59 Last Admin: 10/26/20 21:16 Dose: 100 mg Documented by: Trimethoprim/Sulfamethoxazole (Sulfamethoxazole/Trimethoprim Ds 800/160mg Tab) 1 tab PO Q12 [facility] Stop: 11/21/20 08:59 Last Admin: 10/27/20 07:55 Dose: 1 tab Documented by: Umeclidinium [place] (Umeclidinium [place] 62.5mcg/Blister 7 Puffs/Inhaler) 1 puffs INH DAILY DUNIA; Protocol Stop: 11/21/20 09:44 Last Admin: 10/27/20 07:57 Dose: Not Given Documented by: Mental Health & Subst Abuse Tx Psychiatrist Name of Psychiatrist: Velvet Sanchez Psychiatrist's Psychiatric Appointment Comment: [id number] [facility] Statistical Machine Mechanic Name of Statistical Machine Mechanic: [facility] Phone Number for Statistical Machine Mechanic: [phone] Post Discharge Appointments Primary Care Physician Name Of Family Doctor: MAN Lancaster (BENJA OlveraC) Primary Care Provider Appointment Comment: [address] [place] [address] [place] Specialist Name of Specialist: MAN Cardiology - Dr. Ga Villareal Phone Number for Specialist: [phone] Specialty Appointment Comment: [address] [facility], [address] Contact Information Discharge (1) Intentional drug overdose Encounter type: sequela Qualified Code(s): T50.902S - Poisoning by unspecified drugs, medicaments and biological substances, intentional self-harm, sequela (2) Schizophrenia Schizophrenia type: unspecified Qualified Code(s): F20.9 - Schizophrenia, unspecified (3) Bilateral pneumonia Lung location: upper lobe of lung Pneumonia type: due to unspecified organism Qualified Code(s): J18.9 - Pneumonia, unspecified organism
[2020-10-27] MEDS: clonazePAM 0.5 MG TAB PO SCH (16:56)
[2020-10-27] MEDS: SIMVASTATIN 40 MG TAB PO SCH (20:43)
[2020-10-27] MEDS: traZODone HCL 100 MG TAB PO SCH (20:43)
[2020-10-28] MEDS: LEVOTHYROXINE SODIUM 88 MCG TABLET PO SCH (07:45)
[2020-10-28] MEDS: DOCUSATE SODIUM 100 MG CAP PO SCH ×2 (08:21→21:15)
[2020-10-28] MEDS: dilTIAZem HCL 180 MG CAPCR PO SCH (08:21)
[2020-10-28] MEDS: OMEGA-3 (PURIFIED FISH OIL) 1 GM CAP PO SCH (08:21)
[2020-10-28] MEDS: ASPIRIN 81 MG ECTAB PO SCH (08:21)
[2020-10-28] MEDS: APIXABAN 5 MG TABLET PO SCH ×2 (08:21→21:15)
[2020-10-28] MEDS: UMECLIDINIUM BROMIDE 62.5MCG/BLISTER 7 PUFFS/INHALER INH SCH (08:22)
[2020-10-28] MEDS: GABAPENTIN 400 MG CAP PO SCH ×3 (08:22→21:16)
[2020-10-28] MEDS: IPRATROPIUM BROMIDE NASAL SPRAY 0.06% 15ML SCH ×2 (08:22→21:16)
[2020-10-28] MEDS: QUEtiapine FUMARATE 200 MG TAB PO SCH ×2 (08:22→21:15)
[2020-10-28] MEDS: PSYLLIUM 58.6% POWDER PACKET PO SCH (08:22)
[2020-10-28] MEDS: SULFAMETHOXAZOLE/TRIMETHOPRIM DS 800/160MG TAB PO SCH ×2 (08:22→21:16)
--- NOTE | 2020-10-28 10:45 | Psychiatric Progress Note ---
Date of Service October 28, 2020 Impression / Recommendations Impression DEANDRE THOMPSON is a 60-year-old F, well known to due to recent admissions, has a history of schizoaffective disorder and a flutter s/p ablation, and was admitted on 10/22/20 01:04 on a 201 voluntary commitment s/p OD and disruptive behavior at [facility]. She was maintained on an outpatient commitment which has been converted to inpatient. Her AMS appears to be resolving but she remains reactive, intrussive, irritable due to paranoia. She is unable to care for herself outside of the hospital and is being referred to [facility]. (1) Intentional drug overdose: 10/26/2020table at this time 10/24/20--appreciate hospitalist consultation re: tachy yesterday 10/22/20--?resolving anticholinergic delirium as seems more thought blocked than yesterday. Will need to restart Seroquel at lower dose. Conversion hearing this pm. (2) Schizophrenia: 10/27/2020atient continues on 200 mg of Seroquel p.o. every morning, 400 mg of seroquel p.o. nightly. Seems to be making improvements on this current dosing. 10/25/20--continue current meds but add standing dose of Klonopin with evening meal given diurnal variation in symptoms (primarily anxiety which drives tachy). 10/23/20--continue current meds, initiate state hospital referral given failure of CRR. 10/22/20--The patient was admitted to the [facility] ([facility] mental health unit) on q15 min checks (behavioral with suicide precautions) for safety. The patient will participate in group, recreational, and milieu therapies and will be offered additional individual and family sessions as clinically appropriate. Risks/benefits/alternatives reviewed re: her current medications, discussion included but was not limited to risks of TD and need for metabolic monitoring. She will start Seroquel at 1/2 total daily dose today and then full dose tomorrow. (3) Bilateral pneumonia: 10/24/20--completed course of Levaquin 10/22/20--Continue course of antibiotics started on medical service. Inahlers as ordered. Inventory Assets Strengths: family oriented, accepting of services (compared to initial presentation) Needs: housing Risk Factors Assessment Male: No : Yes Do You Have Access To A Gun?: No Health Problems: Yes Mental Health Diagnoses: Yes Substance Use Disorders: No Previous Attempt: Yes Previous Psychiatric Hospitalization: Yes Protective Factors Assessment Spiritism Beliefs: Yes : No Responsible for Young Children: No Employed: No Interval History Chief Complaint "I am doing okay". Review of Systems Sleep Information Total Hours of Sleep: 7.5 Sleep Comments: Please see nurse notes. Meal Information Percent Meal Consumed - Breakfast: 100 Percent Meal Consumed - Lunch: 100 Percent Meal Consumed - Dinner: 100 Nutrition Comment: per meal record Subjective Subjective Patient was seen & assessed and interval progress reviewed with treatment team nursing and social work Patient was spoken to this morning. Denies issues with sleep or eating. Still reports occasional gustatory hallucinations. States that her mood is "fine". Patient is still perseverating on her last apartment and the way in which she was done wrong by her landlord. Despite this is open to any placement for discharge. Patient's heart rate was high today 118, she denied any chest pain or chest tightness. We will continue to monitor heart rate. Physical Exam Psychiatric Orientation: alert, oriented to person and oriented to place Apperance: appropriately groomed and + disheveled Eye Contact: + fair eye contact and + poor eye contact Motor Behavior: steady gait and station and + tremor Speech: normal rate/rhythm/volume of speech Affect: + depressed affect and + constricted affect Mood: + depressed mood and + irritable mood Thought Process: + thought blocking and + concrete thought process Thought Content: + paranoid and + delusions Suicidal Thoughts: denies suicidal thoughts Homicidal Thoughts: denies homicidal thoughts Hallucinations: no auditory hallucinations and no visual hallucinations Cognition: + attention not intact Estimated Intelligence: consistent with education level and + below average estimated intelligence Insight: + impaired insight and + severely impaired insight Judgement: + impaired judgement and + severely impaired judgement Vital Signs (Past 24 Hours) Last Vital Signs Temp 36.6 C 10/28/20 06:00 Pulse 118 H 10/28/20 06:28 Resp 16 10/28/20 06:00 BP 107/68 10/28/20 06:28 Constitutional WD/WN, vitals as above Eyes + anicteric sclerae; normal pupil size ENMT external ear and nose normal, oropharynx normal Respiratory normal respiratory effort, lungs clear to auscultation Cardiovascular Rate/Rhythm: regular rhythm and + tachycardic Heart Sounds: no murmur Vessels: no JVD Extremities: normal capillary refill; no pedal edema Gastrointestinal (Abdomen) normal bowel sounds, soft, nontender, no hepatosplenomegaly Skin no rashes, warm and dry Neurologic moves all extremities and awake; not confused Results & Data ([facility]) Current Inpatient Medications Current Inpatient Medications: Current Inpatient Medications Acetaminophen (Acetaminophen 325 Mg Tab) 650 mg PO Q4H PRN PRN Reason: Headache or Minor Fever Stop: 11/21/20 01:14 Al Hydrox/Mg Hydrox/Simethicone (Aluminum/Magnesium Susp 30 Ml Udc) 30 ml PO Q4H PRN PRN Reason: GI Upset Stop: 11/21/20 01:14 Albuterol (Albuterol Hfa 8 Gm Inhaler) 2 puffs INH QID PRN; Protocol PRN Reason: shortness of breath or wheezing or cough Stop: 11/21/20 08:30 Apixaban (Apixaban 5 Mg Tablet) 5 mg PO BID DUNIA Stop: 11/21/20 08:59 Last Admin: 10/28/20 08:21 Dose: 5 mg Documented by: Aspirin (Aspirin 81 Mg Ectab) 81 mg PO DAILY [facility] Stop: 11/21/20 08:59 Last Admin: 10/28/20 08:21 Dose: 81 mg Documented by: Clonazepam (Clonazepam 0.5 Mg Tab) 0.5 mg PO BID PRN PRN Reason: Anxiety Stop: 11/24/20 11:58 Clonazepam (Clonazepam 0.5 Mg Tab) 0.5 mg PO DAILYBD [facility] Stop: 11/24/20 17:14 Last Admin: 10/27/20 16:56 Dose: 0.5 mg Documented by: Diltiazem HCl (Diltiazem Hcl 180 Mg Capcr) 180 mg PO QAM [facility] Stop: 11/21/20 08:59 Last Admin: 10/28/20 08:21 Dose: 180 mg Documented by: Docusate Sodium (Docusate Sodium 100 Mg Cap) 100 mg PO BID [facility] Stop: 11/23/20 11:59 Last Admin: 10/28/20 08:21 Dose: 100 mg Documented by: Fish Oil ([place]-3 (Purified Fish Oil) 1 Gm Cap) 1 gm PO DAILY [facility] Stop: 11/21/20 09:44 Last Admin: 10/28/20 08:21 Dose: 1 gm Documented by: Gabapentin (Gabapentin 400 Mg Cap) 400 mg PO TID [facility] Stop: 11/21/20 08:59 Last Admin: 10/28/20 08:22 Dose: 400 mg Documented by: Ipratropium [place] (Ipratropium [place] Nasal [place] 0.06% 15ml) 2 sprays NA BID [facility] Stop: 11/21/20 08:59 Last Admin: 10/28/20 08:22 Dose: Not Given Documented by: Levothyroxine Sodium (Levothyroxine Sodium 88 Mcg Tablet) 88 mcg PO DAILYBB [facility] Stop: 11/22/20 07:59 Last Admin: 10/28/20 07:45 Dose: 88 mcg Documented by: Magnesium Hydroxide (Magnesium Hydroxide Susp 30 Ml Udc) 30 ml PO DAILY PRN PRN Reason: Constipation Stop: 11/21/20 01:14 Psyllium Hydrophilic Mucilloid (Psyllium 58.6% Powder Packet) 1 pkt PO QAM [facility] Stop: 11/26/20 08:59 Last Admin: 10/28/20 08:22 Dose: 1 pkt Documented by: Quetiapine Fumarate (Quetiapine Fumarate 200 Mg Tab) 200 mg PO DAILY [facility] Stop: 11/21/20 09:59 Last Admin: 10/28/20 08:22 Dose: 200 mg Documented by: Quetiapine Fumarate (Quetiapine Fumarate 200 Mg Tab) 400 mg PO [facility] Stop: 11/21/20 21:59 Last Admin: 10/27/20 20:43 Dose: 400 mg Documented by: Quetiapine Fumarate (Quetiapine Fumarate 100 Mg Tablet) 100 mg PO Q6 PRN PRN Reason: Anxiety/Agitation Stop: 11/21/20 17:59 Last Admin: 10/22/20 17:24 Dose: 100 mg Documented by: Simvastatin (Simvastatin 40 Mg Tab) 40 mg PO [facility] Stop: 11/21/20 21:59 Last Admin: 10/27/20 20:43 Dose: 40 mg Documented by: Sodium Chloride (Sodium Chloride 0.65% Na Soln 45 Ml ([place])) 1 - 2 sprays NA PRN PRN PRN Reason: Nasal Dryness/Congestion Stop: 11/21/20 01:14 Trazodone HCl (Trazodone Hcl 100 Mg Tab) 100 mg PO [facility] Stop: 11/21/20 21:59 Last Admin: 10/27/20 20:43 Dose: 100 mg Documented by: Trimethoprim/Sulfamethoxazole (Sulfamethoxazole/Trimethoprim Ds 800/160mg Tab) 1 tab PO Q12 [facility] Stop: 11/21/20 08:59 Last Admin: 10/28/20 08:22 Dose: 1 tab Documented by: Umeclidinium [place] (Umeclidinium [place] 62.5mcg/Blister 7 Puffs/Inhaler) 1 puffs INH DAILY DUNIA; Protocol Stop: 11/21/20 09:44 Last Admin: 10/28/20 08:22 Dose: Not Given Documented by: Mental Health & Subst Abuse Tx Psychiatrist Name of Psychiatrist: Velvet Sanchez Psychiatrist's Psychiatric Appointment Comment: [id number] [facility] Design Teacher Name of Design Teacher: [facility] Phone Number for Design Teacher: [phone] Post Discharge Appointments Primary Care Physician Name Of Family Doctor: MAN Lancaster (BENJA OlveraC) Primary Care Provider Appointment Comment: [address] [place] [address] [place] Specialist Name of Specialist: MAN Cardiology - Dr. Ga Villareal Phone Number for Specialist: [phone] Specialty Appointment Comment: [address] [facility], [address] Contact Information Discharge (1) Intentional drug overdose Encounter type: sequela Qualified Code(s): T50.902S - Poisoning by unspecified drugs, medicaments and biological substances, intentional self-harm, sequela (2) Schizophrenia Schizophrenia type: unspecified Qualified Code(s): F20.9 - Schizophrenia, unspecified (3) Bilateral pneumonia Pneumonia type: due to unspecified organism Lung location: upper lobe of lung Qualified Code(s): J18.9 - Pneumonia, unspecified organism
--- NOTE | 2020-10-28 16:09 | Hospitalist Progress Note ---
Date of Service October 28, 2020 Assessment & Plan (1) Sinus tachycardia: Hospitalist consulted for tachycardia which was shown to be sinus tachycardia Prior episodes of atrial flutter have had a variable AV block and currently heart rate is regular on examination. Could be due to recent acute blood loss anemia as well as anxiety TSH normal She is not really having too much in the way of symptoms at this time -Continue diltiazem 180 mg p.o. every morning without increasing due to low normal blood pressures. -Seems well-hydrated on examination-encourage continued p.o. intake of fluids -Hemoglobin was 9.3 on 10/21-we will repeat again in the morning to ensure that hemoglobin has not dropped further -Continue to monitor daily vital signs (2) Anemia: Hemoglobin 9.3 on 10/21, down from previous during last admission from acute blood loss anemia after she had bleeding from her right femoral site where her ablation was performed Bruising at the area but no hematoma Check H&H in the morning Start ferrous sulfate 325 mg p.o. twice daily along with docusate (3) Chronic osteomyelitis: Since her open heart valve repair Takes Bactrim chronically for prophylaxis (4) Hypothyroidism: TSH normal here at 4.34 Continue home dose of levothyroxine (5) Hyperlipidemia: Continue simvastatin, fish oil (6) History of mitral valve repair: Echo 08/2020 with known severe mitral valve stenosis, EF preserved (7) Constipation: Now resolved Continue docusate, daily Metamucil Watch for worsening after starting ferrous sulfate (8) Atrial flutter with rapid ventricular response: Now resolved, status post ablation by cardiology on 10/07 Continue Eliquis 5 mg p.o. twice daily Continue diltiazem Follow-up with cardiology, Dr. Teague, on or around November 07-which will be 3 weeks from procedure as per cardiology recommendation If she is still inpatient at that time, cardiology can be consulted in house (9) Schizophrenia: Management as per psychiatry Continue Seroquel, trazodone, clonazepam (10) Pneumonia: Diagnosed last admission, has completed a course of levofloxacin (11) HTN (hypertension): Blood pressures are well controlled Continue home diltiazem (12) COPD, moderate: No acute issues Continue albuterol as needed and Umeclidinium 1 puff daily Disposition-continued stay in inpatient psychiatric [place]. I will review the H&H in the morning and if normal, hospital service will sign off at that time All care discussed with patient she is in agreement with plan. Admission and Anticipated Discharge Date Admission Date: October 22, 2020 Subjective Patient reports she is feeling well. She has occasional heart palpitations but denies lightheadedness. No chest pain or shortness of breath. No nausea or vomiting. No constipation since taking docusate and Metamucil. Heart rates remain in the low 100s to 1 teens at times She has no pain in the groin site. Review of Systems Review of Systems: All systems reviewed & are unremarkable except as noted in HPI & below Physical Exam Constitutional: WD/WN, vitals as above Eyes: + anicteric sclerae Neck: trachea midline, no thyromegaly Respiratory: normal respiratory effort, lungs clear to auscultation Cardiovascular: Rate/Rhythm: regular rhythm and + tachycardic (Mild) Heart Sounds: no murmur Extremities: no edema Chest (Breasts): Chest: normal inspection of chest Gastrointestinal (Abdomen): normal bowel sounds, soft, nontender, no hepatosplenomegaly Musculoskeletal: Extremities: extremities normal to inspection; no cyanosis and no clubbing Skin: no rashes, warm and dry Neurologic: moves all extremities and awake; no focal motor deficits Psychiatric: A+Ox3, euthymic affect Lymphatic: no lymphedema Results & Data Results & Data ([facility]) Vital Signs (Past 12 Hours) Vital Signs Temp Pulse Resp BP 10/28/20 13:27 101 H 113/78 10/28/20 06:28 118 H 107/68 10/28/20 06:00 36.6 C 118 H 16 122/71 PG Care Time/CCT Total # of Minutes Spent Total Time Spent with Patient: Total time spent is greater than 50% in coordination of care (as documented) at patient's floor/unit and/or counseling patient: Coding Level of Care Code 70024 Subseq Hosp Care Lvl 3 Diagnoses Sinus tachycardia R00.0 Anemia D64.9 Chronic osteomyelitis M86.60 Hypothyroidism E03.9 Hyperlipidemia E78.5 History of mitral valve repair Z98.890 Constipation K59.00 Atrial flutter with rapid ventricular response I48.92 Schizophrenia F20.9 Schizophrenia type: unspecified Pneumonia J18.9 HTN (hypertension) I10 COPD, moderate J44.9 (1) Schizophrenia Schizophrenia type: unspecified Qualified Code(s): F20.9 - Schizophrenia, unspecified
[2020-10-28] MEDS: clonazePAM 0.5 MG TAB PO SCH (18:16)
[2020-10-28] MEDS: FERROUS SULFATE 325 MG TAB PO SCH (19:11)
[2020-10-28] MEDS: traZODone HCL 100 MG TAB PO SCH (21:14)
[2020-10-28] MEDS: SIMVASTATIN 40 MG TAB PO SCH (21:15)
[2020-10-29] MEDS: LEVOTHYROXINE SODIUM 88 MCG TABLET PO SCH (07:41)
[2020-10-29] MEDS: PSYLLIUM 58.6% POWDER PACKET PO SCH (07:42)
[2020-10-29 08:07] LABS: Hematocrit (blood only) 32.1 % (37-47); Hemoglobin 10.4 g/dL (12.0-16.0)
[2020-10-29] MEDS: APIXABAN 5 MG TABLET PO SCH ×2 (08:18→20:25)
[2020-10-29] MEDS: DOCUSATE SODIUM 100 MG CAP PO SCH ×2 (08:19→20:23)
[2020-10-29] MEDS: dilTIAZem HCL 180 MG CAPCR PO SCH (08:19)
[2020-10-29] MEDS: FERROUS SULFATE 325 MG TAB PO SCH ×2 (08:19→17:20)
[2020-10-29] MEDS: OMEGA-3 (PURIFIED FISH OIL) 1 GM CAP PO SCH (08:20)
[2020-10-29] MEDS: GABAPENTIN 400 MG CAP PO SCH ×3 (08:20→20:24)
[2020-10-29] MEDS: IPRATROPIUM BROMIDE NASAL SPRAY 0.06% 15ML SCH ×2 (08:21→20:25)
[2020-10-29] MEDS: QUEtiapine FUMARATE 200 MG TAB PO SCH ×2 (08:21→20:23)
[2020-10-29] MEDS: SULFAMETHOXAZOLE/TRIMETHOPRIM DS 800/160MG TAB PO SCH ×2 (08:21→20:24)
[2020-10-29] MEDS: UMECLIDINIUM BROMIDE 62.5MCG/BLISTER 7 PUFFS/INHALER INH SCH (08:22)
[2020-10-29] MEDS: ASPIRIN 81 MG ECTAB PO SCH (08:23)
--- NOTE | 2020-10-29 11:39 | Communication Note ---
Date of Service: October 29, 2020 H/H reviewed this AM and are improving from previous. Therefore mild sinus tachycardia is not from worsening anemia. Continue with ferrous sulfate and recommend repeating CBC in 2-3 weeks. Hospitalist service will sign off. Please feel free to reconsult for new or acute issues. Thank you. Nakita Macias M.D.
--- NOTE | 2020-10-29 13:28 | Psychiatric Progress Note ---
Date of Service October 29, 2020 Impression / Recommendations Impression DEANDRE THOMPSON is a 60-year-old F, well known to due to recent admissions, has a history of schizoaffective disorder and a flutter s/p ablation, and was admitted on 10/22/20 01:04 on a 201 voluntary commitment s/p OD and disruptive behavior at [facility]. She was maintained on an outpatient commitment which has been converted to inpatient. Her AMS appears to be resolving but she remains reactive, intrussive, irritable due to paranoia. She is unable to care for herself outside of the hospital and is being referred to [facility]. (1) Intentional drug overdose: 10/26/2020table at this time 10/24/20--appreciate hospitalist consultation re: tachy yesterday 10/22/20--?resolving anticholinergic delirium as seems more thought blocked than yesterday. Will need to restart Seroquel at lower dose. Conversion hearing this pm. (2) Schizophrenia: 10/27/2020atient continues on 200 mg of Seroquel p.o. every morning, 400 mg of seroquel p.o. nightly. Seems to be making improvements on this current dosing. 10/25/20--continue current meds but add standing dose of Klonopin with evening meal given diurnal variation in symptoms (primarily anxiety which drives tachy). 10/23/20--continue current meds, initiate state hospital referral given failure of [facility]. 10/22/20--The patient was admitted to the [facility] ([facility]) on q15 min checks (behavioral with suicide precautions) for safety. The patient will participate in group, recreational, and milieu therapies and will be offered additional individual and family sessions as clinically appropriate. Risks/benefits/alternatives reviewed re: her current medications, discussion included but was not limited to risks of TD and need for metabolic monitoring. She will start Seroquel at 1/2 total daily dose today and then full dose tomorrow. (3) Bilateral pneumonia: 10/24/20--completed course of Levaquin 10/22/20--Continue course of antibiotics started on medical service. Inahlers as ordered. Inventory Assets Strengths: family oriented, accepting of services (compared to initial presentation) Needs: housing Risk Factors Assessment Male: No : Yes Do You Have Access To A Gun?: No Health Problems: Yes Mental Health Diagnoses: Yes Substance Use Disorders: No Previous Attempt: Yes Previous Psychiatric Hospitalization: Yes Protective Factors Assessment Nondenominational Beliefs: Yes : No Responsible for Young Children: No Employed: No Interval History Chief Complaint "I am doing well thank you". Review of Systems Sleep Information Total Hours of Sleep: 6.5 Sleep Comments: Please see nurse notes. Meal Information Percent Meal Consumed - Breakfast: 75 Percent Meal Consumed - Lunch: 90 Percent Meal Consumed - Dinner: 100 Nutrition Comment: per meal record Subjective Subjective Patient was seen & assessed and interval progress reviewed with treatment team nursing and social work Patient reports a decent night of sleep and a strong appetite. Patient mood still remains labile. She is often paranoid and intrusive with group members and does not respond to redirection appropriately Patient still continues to endorse occasional gustatory hallucinations. Denies any side effects or chest pain today. Dose of Seroquel held at 600 mg for now due to concern for cardiac conduction delays with further increased dosages. Patient also awaiting safe discharge disposition. Physical Exam Psychiatric A+Ox3, euthymic affect Orientation: alert, oriented to person and oriented to place Apperance: appropriately groomed and + disheveled Eye Contact: + fair eye contact and + poor eye contact Motor Behavior: steady gait and station and + tremor Speech: normal rate/rhythm/volume of speech Affect: + depressed affect and + constricted affect Mood: + depressed mood and + irritable mood Thought Process: + thought blocking and + concrete thought process Thought Content: + paranoid and + delusions Suicidal Thoughts: denies suicidal thoughts Homicidal Thoughts: denies homicidal thoughts Hallucinations: no auditory hallucinations and no visual hallucinations Cognition: + attention not intact Estimated Intelligence: consistent with education level and + below average estimated intelligence Insight: + impaired insight and + severely impaired insight Judgement: + impaired judgement and + severely impaired judgement Vital Signs (Past 24 Hours) Last Vital Signs Temp 36.5 C 10/29/20 06:34 Pulse 101 H 10/29/20 06:34 Resp 16 10/29/20 06:34 BP 114/58 L 10/29/20 06:34 Pulse Ox 99 10/28/20 20:46 Constitutional WD/WN, vitals as above Eyes + anicteric sclerae; normal pupil size ENMT external ear and nose normal, oropharynx normal Neck trachea midline, no thyromegaly Respiratory normal respiratory effort, lungs clear to auscultation Cardiovascular RRR, no murmur, no edema Rate/Rhythm: regular rhythm and + tachycardic (Mild) Heart Sounds: no murmur Vessels: no JVD Extremities: normal capillary refill; no pedal edema and no edema Chest (Breasts) Chest: normal inspection of chest Gastrointestinal (Abdomen) normal bowel sounds, soft, nontender, no hepatosplenomegaly Musculoskeletal Extremities: extremities normal to inspection; no cyanosis and no clubbing Skin no rashes, warm and dry Neurologic moves all extremities and awake; no focal motor deficits and not confused Lymphatic no lymphedema Results & Data ([facility]) Laboratory Results Laboratory Results - last 24 hr 10/29/20 07:55 Hgb 10.4 L Hct 32.1 L Current Inpatient Medications Current Inpatient Medications: Current Inpatient Medications Acetaminophen (Acetaminophen 325 Mg Tab) 650 mg PO Q4H PRN PRN Reason: Headache or Minor Fever Stop: 11/21/20 01:14 Al Hydrox/Mg Hydrox/Simethicone (Aluminum/Magnesium Susp 30 Ml Udc) 30 ml PO Q4H PRN PRN Reason: GI Upset Stop: 11/21/20 01:14 Albuterol (Albuterol Hfa 8 Gm Inhaler) 2 puffs INH QID PRN; Protocol PRN Reason: shortness of breath or wheezing or cough Stop: 11/21/20 08:30 Apixaban (Apixaban 5 Mg Tablet) 5 mg PO BID [facility] Stop: 11/21/20 08:59 Last Admin: 10/29/20 08:18 Dose: 5 mg Documented by: Aspirin (Aspirin 81 Mg Ectab) 81 mg PO DAILY DUNIA Stop: 11/21/20 08:59 Last Admin: 10/29/20 08:23 Dose: 81 mg Documented by: Clonazepam (Clonazepam 0.5 Mg Tab) 0.5 mg PO BID PRN PRN Reason: Anxiety Stop: 11/24/20 11:58 Clonazepam (Clonazepam 0.5 Mg Tab) 0.5 mg PO DAILYBD [facility] Stop: 11/24/20 17:14 Last Admin: 10/28/20 18:16 Dose: 0.5 mg Documented by: Diltiazem HCl (Diltiazem Hcl 180 Mg Capcr) 180 mg PO QAM [facility] Stop: 11/21/20 08:59 Last Admin: 10/29/20 08:19 Dose: 180 mg Documented by: Docusate Sodium (Docusate Sodium 100 Mg Cap) 100 mg PO BID DUNIA Stop: 11/23/20 11:59 Last Admin: 10/29/20 08:19 Dose: 100 mg Documented by: Ferrous Sulfate (Ferrous Sulfate 325 Mg Tab) 325 mg PO BIDM DUNIA Stop: 11/27/20 18:24 Last Admin: 10/29/20 08:19 Dose: 325 mg Documented by: Fish Oil ([place]-3 (Purified Fish Oil) 1 Gm Cap) 1 gm PO DAILY DUNIA Stop: 11/21/20 09:44 Last Admin: 10/29/20 08:20 Dose: 1 gm Documented by: Gabapentin (Gabapentin 400 Mg Cap) 400 mg PO TID DUNIA Stop: 11/21/20 08:59 Last Admin: 10/29/20 08:20 Dose: 400 mg Documented by: Ipratropium Shunk (Ipratropium Shunk Nasal [place] 0.06% 15ml) 2 sprays NA BID DUNIA Stop: 11/21/20 08:59 Last Admin: 10/29/20 08:21 Dose: Not Given Documented by: Levothyroxine Sodium (Levothyroxine Sodium 88 Mcg Tablet) 88 mcg PO DAILYBB [facility] Stop: 11/22/20 07:59 Last Admin: 10/29/20 07:41 Dose: 88 mcg Documented by: Magnesium Hydroxide (Magnesium Hydroxide Susp 30 Ml Udc) 30 ml PO DAILY PRN PRN Reason: Constipation Stop: 11/21/20 01:14 Psyllium Hydrophilic Mucilloid (Psyllium 58.6% Powder Packet) 1 pkt PO QAM DUNIA Stop: 11/26/20 08:59 Last Admin: 10/29/20 07:42 Dose: 1 pkt Documented by: Quetiapine Fumarate (Quetiapine Fumarate 200 Mg Tab) 200 mg PO DAILY [facility] Stop: 11/21/20 09:59 Last Admin: 10/29/20 08:21 Dose: 200 mg Documented by: Quetiapine Fumarate (Quetiapine Fumarate 200 Mg Tab) 400 mg PO HS DUNIA Stop: 11/21/20 21:59 Last Admin: 10/28/20 21:15 Dose: 400 mg Documented by: Quetiapine Fumarate (Quetiapine Fumarate 100 Mg Tablet) 100 mg PO Q6 PRN PRN Reason: Anxiety/Agitation Stop: 11/21/20 17:59 Last Admin: 10/22/20 17:24 Dose: 100 mg Documented by: Simvastatin (Simvastatin 40 Mg Tab) 40 mg PO HS DUNIA Stop: 11/21/20 21:59 Last Admin: 10/28/20 21:15 Dose: 40 mg Documented by: Sodium Chloride (Sodium Chloride 0.65% Na Soln 45 Ml ([place])) 1 - 2 sprays NA PRN PRN PRN Reason: Nasal Dryness/Congestion Stop: 11/21/20 01:14 Trazodone HCl (Trazodone Hcl 100 Mg Tab) 100 mg PO HS DUNIA Stop: 11/21/20 21:59 Last Admin: 10/28/20 21:14 Dose: 100 mg Documented by: Trimethoprim/Sulfamethoxazole (Sulfamethoxazole/Trimethoprim Ds 800/160mg Tab) 1 tab PO Q12 DUNIA Stop: 11/21/20 08:59 Last Admin: 10/29/20 08:21 Dose: 1 tab Documented by: Umeclidinium Shunk (Umeclidinium [place] 62.5mcg/Blister 7 Puffs/Inhaler) 1 puffs INH DAILY DUNIA; Protocol Stop: 11/21/20 09:44 Last Admin: 10/29/20 08:22 Dose: Not Given Documented by: Mental Health & Subst Abuse Tx Psychiatrist Name of Psychiatrist: Velvet Sanchez Psychiatrist's Psychiatric Appointment Comment: [id number] [facility] [employer] Name of [employer]: [facility] Phone Number for [employer]: [phone] Post Discharge Appointments Primary Care Physician Name Of Family Doctor: MAN Lancaster (May, BENJAC) Primary Care Provider Appointment Comment: [address] [place] [address] Corey Paredes Specialist Name of Specialist: MAN Cardiology - Dr. Ga Villareal Phone Number for Specialist: [phone] Specialty Appointment Comment: [address] [facility], [address], [place] Contact Information Discharge (1) Intentional drug overdose Encounter type: sequela Qualified Code(s): T50.902S - Poisoning by unspecified drugs, medicaments and biological substances, intentional self-harm, sequela (2) Schizophrenia Schizophrenia type: unspecified Qualified Code(s): F20.9 - Schizophrenia, unspecified (3) Bilateral pneumonia Pneumonia type: due to unspecified organism Lung location: upper lobe of lung Qualified Code(s): J18.9 - Pneumonia, unspecified organism
[2020-10-29] MEDS: clonazePAM 0.5 MG TAB PO SCH (17:20)
[2020-10-29] MEDS: SIMVASTATIN 40 MG TAB PO SCH (20:23)
[2020-10-29] MEDS: traZODone HCL 100 MG TAB PO SCH (20:24)
[2020-10-30] MEDS: APIXABAN 5 MG TABLET PO SCH ×2 (09:21→20:58)
[2020-10-30] MEDS: LEVOTHYROXINE SODIUM 88 MCG TABLET PO SCH (09:21)
[2020-10-30] MEDS: ASPIRIN 81 MG ECTAB PO SCH (09:21)
[2020-10-30] MEDS: FERROUS SULFATE 325 MG TAB PO SCH ×2 (09:22→17:37)
[2020-10-30] MEDS: OMEGA-3 (PURIFIED FISH OIL) 1 GM CAP PO SCH (09:22)
[2020-10-30] MEDS: DOCUSATE SODIUM 100 MG CAP PO SCH ×2 (09:22→20:58)
[2020-10-30] MEDS: GABAPENTIN 400 MG CAP PO SCH ×3 (09:22→20:58)
[2020-10-30] MEDS: dilTIAZem HCL 180 MG CAPCR PO SCH (09:22)
[2020-10-30] MEDS: SULFAMETHOXAZOLE/TRIMETHOPRIM DS 800/160MG TAB PO SCH ×2 (09:23→20:59)
[2020-10-30] MEDS: PSYLLIUM 58.6% POWDER PACKET PO SCH (09:23)
[2020-10-30] MEDS: QUEtiapine FUMARATE 200 MG TAB PO SCH ×2 (09:23→20:59)
[2020-10-30] MEDS: IPRATROPIUM BROMIDE NASAL SPRAY 0.06% 15ML SCH ×2 (09:25→21:02)
[2020-10-30] MEDS: UMECLIDINIUM BROMIDE 62.5MCG/BLISTER 7 PUFFS/INHALER INH SCH (09:25)
--- NOTE | 2020-10-30 10:29 | Psychiatric Progress Note ---
Date of Service October 30, 2020 Impression / Recommendations Impression DEANDRE THOMPSON is a 60-year-old F, well known to due to recent admissions, has a history of schizoaffective disorder and a flutter s/p ablation, and was admitted on 10/22/20 01:04 on a 201 voluntary commitment s/p OD and disruptive behavior at [facility]. She was maintained on an outpatient commitment which has been converted to inpatient. Her AMS appears to be resolving but she remains reactive, intrussive, irritable due to paranoia. She is unable to care for herself outside of the hospital and is being referred to [facility]. (1) Intentional drug overdose: 10/26/2020table at this time 10/24/20--appreciate hospitalist consultation re: tachy yesterday 10/22/20--?resolving anticholinergic delirium as seems more thought blocked than yesterday. Will need to restart Seroquel at lower dose. Conversion hearing this pm. (2) Schizophrenia: 10/27/2020atient continues on 200 mg of Seroquel p.o. every morning, 400 mg of seroquel p.o. nightly. Seems to be making improvements on this current dosing. 10/25/20--continue current meds but add standing dose of Klonopin with evening meal given diurnal variation in symptoms (primarily anxiety which drives tachy). 10/23/20--continue current meds, initiate state hospital referral given failure of [facility]. 10/22/20--The patient was admitted to the [facility] ([facility] [place] [facility]) on q15 min checks (behavioral with suicide precautions) for safety. The patient will participate in group, recreational, and milieu therapies and will be offered additional individual and family sessions as clinically appropriate. Risks/benefits/alternatives reviewed re: her current medications, discussion included but was not limited to risks of TD and need for metabolic monitoring. She will start Seroquel at 1/2 total daily dose today and then full dose tomorrow. (3) Bilateral pneumonia: 10/24/20--completed course of Levaquin 10/22/20--Continue course of antibiotics started on medical service. Inahlers as ordered. Inventory Assets Strengths: family oriented, accepting of services (compared to initial presentation) Needs: housing Risk Factors Assessment Male: No : Yes Do You Have Access To A Gun?: No Health Problems: Yes Mental Health Diagnoses: Yes Substance Use Disorders: No Previous Attempt: Yes Previous Psychiatric Hospitalization: Yes Protective Factors Assessment Baptism Beliefs: Yes : No Responsible for Young Children: No Employed: No Interval History Chief Complaint "I'm okay today". Review of Systems Sleep Information Total Hours of Sleep: 7.25 Sleep Comments: pt appeared to sleep 1.25 hr during evening shift. pt on q-15 minute checks Meal Information Percent Meal Consumed - Breakfast: 100 Percent Meal Consumed - Lunch: 90 Percent Meal Consumed - Dinner: 100 Nutrition Comment: per meal record Subjective Subjective Patient was seen & assessed and interval progress reviewed with treatment team nursing and social work Patient reports a decent night of sleep. She continues to endorse strong appetite. Patient still remains somewhat paranoid intrusive although less so than prior. She reports improvement to the medication. No side effects of the medication reported or observed. Patient becomes upset when talking about discharge, as she has been kicked out of her apartment and has no safe place to go at this time. Awaiting safe discharge planning. Physical Exam Psychiatric A+Ox3, euthymic affect Orientation: alert, oriented to person and oriented to place Apperance: appropriately groomed and + disheveled Eye Contact: + fair eye contact and + poor eye contact Motor Behavior: steady gait and station and + tremor Speech: normal rate/rhythm/volume of speech Affect: + depressed affect and + constricted affect Mood: + depressed mood and + irritable mood Thought Process: + thought blocking and + concrete thought process Thought Content: + paranoid and + delusions Suicidal Thoughts: denies suicidal thoughts Homicidal Thoughts: denies homicidal thoughts Hallucinations: no auditory hallucinations and no visual hallucinations Cognition: + attention not intact Estimated Intelligence: consistent with education level and + below average estimated intelligence Insight: + impaired insight and + severely impaired insight Judgement: + impaired judgement and + severely impaired judgement Vital Signs (Past 24 Hours) Last Vital Signs Temp 36.6 C 10/30/20 06:28 Pulse 102 H 10/30/20 06:29 Resp 16 10/30/20 06:28 BP 115/70 10/30/20 06:29 Pulse Ox 99 10/28/20 20:46 Constitutional WD/WN, vitals as above Eyes + anicteric sclerae; normal pupil size ENMT external ear and nose normal, oropharynx normal Neck trachea midline, no thyromegaly Respiratory normal respiratory effort, lungs clear to auscultation Cardiovascular RRR, no murmur, no edema Rate/Rhythm: regular rhythm and + tachycardic (Mild) Heart Sounds: no murmur Vessels: no JVD Extremities: normal capillary refill; no pedal edema and no edema Chest (Breasts) Chest: normal inspection of chest Gastrointestinal (Abdomen) normal bowel sounds, soft, nontender, no hepatosplenomegaly Musculoskeletal Extremities: extremities normal to inspection; no cyanosis and no clubbing Skin no rashes, warm and dry Neurologic moves all extremities and awake; no focal motor deficits and not confused Lymphatic no lymphedema Results & Data ([facility]) Current Inpatient Medications Current Inpatient Medications: Current Inpatient Medications Acetaminophen (Acetaminophen 325 Mg Tab) 650 mg PO Q4H PRN PRN Reason: Headache or Minor Fever Stop: 11/21/20 01:14 Al Hydrox/Mg Hydrox/Simethicone (Aluminum/Magnesium Susp 30 Ml Udc) 30 ml PO Q4H PRN PRN Reason: GI Upset Stop: 11/21/20 01:14 Albuterol (Albuterol Hfa 8 Gm Inhaler) 2 puffs INH QID PRN; Protocol PRN Reason: shortness of breath or wheezing or cough Stop: 11/21/20 08:30 Apixaban (Apixaban 5 Mg Tablet) 5 mg PO BID [facility] Stop: 11/21/20 08:59 Last Admin: 10/30/20 09:21 Dose: 5 mg Documented by: Aspirin (Aspirin 81 Mg Ectab) 81 mg PO DAILY DUNIA Stop: 11/21/20 08:59 Last Admin: 10/30/20 09:21 Dose: 81 mg Documented by: Clonazepam (Clonazepam 0.5 Mg Tab) 0.5 mg PO BID PRN PRN Reason: Anxiety Stop: 11/24/20 11:58 Clonazepam (Clonazepam 0.5 Mg Tab) 0.5 mg PO DAILYBD [facility] Stop: 11/24/20 17:14 Last Admin: 10/29/20 17:20 Dose: 0.5 mg Documented by: Diltiazem HCl (Diltiazem Hcl 180 Mg Capcr) 180 mg PO QAM DUNIA Stop: 11/21/20 08:59 Last Admin: 10/30/20 09:22 Dose: 180 mg Documented by: Docusate Sodium (Docusate Sodium 100 Mg Cap) 100 mg PO BID [facility] Stop: 11/23/20 11:59 Last Admin: 10/30/20 09:22 Dose: 100 mg Documented by: Ferrous Sulfate (Ferrous Sulfate 325 Mg Tab) 325 mg PO BIDM [facility] Stop: 11/27/20 18:24 Last Admin: 10/30/20 09:22 Dose: 325 mg Documented by: Fish Oil ([place]-3 (Purified Fish Oil) 1 Gm Cap) 1 gm PO DAILY DUN[facility] Stop: 11/21/20 09:44 Last Admin: 10/30/20 09:22 Dose: 1 gm Documented by: Gabapentin (Gabapentin 400 Mg Cap) 400 mg PO TID [facility] Stop: 11/21/20 08:59 Last Admin: 10/30/20 09:22 Dose: 400 mg Documented by: Ipratropium [place] (Ipratropium [place] Nasal [place] 0.06% 15ml) 2 sprays NA BID [facility] Stop: 11/21/20 08:59 Last Admin: 10/30/20 09:25 Dose: Not Given Documented by: Levothyroxine Sodium (Levothyroxine Sodium 88 Mcg Tablet) 88 mcg PO DAILYBB [facility] Stop: 11/22/20 07:59 Last Admin: 10/30/20 09:21 Dose: 88 mcg Documented by: Magnesium Hydroxide (Magnesium Hydroxide Susp 30 Ml Udc) 30 ml PO DAILY PRN PRN Reason: Constipation Stop: 11/21/20 01:14 Psyllium Hydrophilic Mucilloid (Psyllium 58.6% Powder Packet) 1 pkt PO QAM DUN[facility] Stop: 11/26/20 08:59 Last Admin: 10/30/20 09:23 Dose: 1 pkt Documented by: Quetiapine Fumarate (Quetiapine Fumarate 200 Mg Tab) 200 mg PO DAILY [facility] Stop: 11/21/20 09:59 Last Admin: 10/30/20 09:23 Dose: 200 mg Documented by: Quetiapine Fumarate (Quetiapine Fumarate 200 Mg Tab) 400 mg PO HS [facility] Stop: 11/21/20 21:59 Last Admin: 10/29/20 20:23 Dose: 400 mg Documented by: Quetiapine Fumarate (Quetiapine Fumarate 100 Mg Tablet) 100 mg PO Q6 PRN PRN Reason: Anxiety/Agitation Stop: 11/21/20 17:59 Last Admin: 10/22/20 17:24 Dose: 100 mg Documented by: Simvastatin (Simvastatin 40 Mg Tab) 40 mg PO HS [facility] Stop: 11/21/20 21:59 Last Admin: 10/29/20 20:23 Dose: 40 mg Documented by: Sodium Chloride (Sodium Chloride 0.65% Na Soln 45 Ml ([place])) 1 - 2 sprays NA PRN PRN PRN Reason: Nasal Dryness/Congestion Stop: 11/21/20 01:14 Trazodone HCl (Trazodone Hcl 100 Mg Tab) 100 mg PO HS [facility] Stop: 11/21/20 21:59 Last Admin: 10/29/20 20:24 Dose: 100 mg Documented by: Trimethoprim/Sulfamethoxazole (Sulfamethoxazole/Trimethoprim Ds 800/160mg Tab) 1 tab PO Q12 [facility] Stop: 11/21/20 08:59 Last Admin: 10/30/20 09:23 Dose: 1 tab Documented by: Umeclidinium [place] (Umeclidinium [place] 62.5mcg/Blister 7 Puffs/Inhaler) 1 puffs INH DAILY DUNIA; Protocol Stop: 11/21/20 09:44 Last Admin: 10/30/20 09:25 Dose: Not Given Documented by: Mental Health & Subst Abuse Tx Psychiatrist Name of Psychiatrist: Velvet Sanchez Psychiatrist's Psychiatric Appointment Comment: [id number] [facility] Baccarat Dealer Name of Baccarat Dealer: [facility] Phone Number for Baccarat Dealer: [phone] Post Discharge Appointments Primary Care Physician Name Of Family Doctor: MAN Lancaster (BENJA OlveraC) Primary Care Provider Appointment Comment: [address] [place] [address] Reggie Eminence Specialist Name of Specialist: MAN Cardiology - Dr. Ga Villareal Phone Number for Specialist: [phone] Specialty Appointment Comment: [address] [facility], [address], [place] Contact Information Discharge (1) Intentional drug overdose Encounter type: sequela Qualified Code(s): T50.902S - Poisoning by unspecified drugs, medicaments and biological substances, intentional self-harm, sequela (2) Schizophrenia Schizophrenia type: unspecified Qualified Code(s): F20.9 - Schizophrenia, unspecified (3) Bilateral pneumonia Pneumonia type: due to unspecified organism Lung location: upper lobe of lung Qualified Code(s): J18.9 - Pneumonia, unspecified organism
[2020-10-30] MEDS: clonazePAM 0.5 MG TAB PO SCH (17:37)
[2020-10-30] MEDS: SIMVASTATIN 40 MG TAB PO SCH (20:59)
[2020-10-30] MEDS: traZODone HCL 100 MG TAB PO SCH (20:59)
[2020-10-31] MEDS: ACETAMINOPHEN 325 MG TAB PO PRN (05:43)
[2020-10-31] MEDS: LEVOTHYROXINE SODIUM 88 MCG TABLET PO SCH (07:47)
[2020-10-31] MEDS: PSYLLIUM 58.6% POWDER PACKET PO SCH (08:26)
[2020-10-31] MEDS: ASPIRIN 81 MG ECTAB PO SCH (09:06)
[2020-10-31] MEDS: dilTIAZem HCL 180 MG CAPCR PO SCH (09:06)
[2020-10-31] MEDS: APIXABAN 5 MG TABLET PO SCH ×2 (09:06→21:09)
[2020-10-31] MEDS: GABAPENTIN 400 MG CAP PO SCH ×3 (09:07→21:09)
[2020-10-31] MEDS: SULFAMETHOXAZOLE/TRIMETHOPRIM DS 800/160MG TAB PO SCH ×2 (09:07→21:09)
[2020-10-31] MEDS: IPRATROPIUM BROMIDE NASAL SPRAY 0.06% 15ML SCH ×2 (09:07→21:10)
[2020-10-31] MEDS: DOCUSATE SODIUM 100 MG CAP PO SCH ×2 (09:07→21:09)
[2020-10-31] MEDS: FERROUS SULFATE 325 MG TAB PO SCH ×2 (09:07→17:29)
[2020-10-31] MEDS: OMEGA-3 (PURIFIED FISH OIL) 1 GM CAP PO SCH (09:07)
[2020-10-31] MEDS: QUEtiapine FUMARATE 200 MG TAB PO SCH ×2 (09:07→21:08)
[2020-10-31] MEDS: UMECLIDINIUM BROMIDE 62.5MCG/BLISTER 7 PUFFS/INHALER INH SCH (09:08)
--- NOTE | 2020-10-31 15:03 | Psychiatric Progress Note ---
Date of Service October 31, 2020 Impression / Recommendations Impression DEANDRE THOMPSON is a 60-year-old F, well known to due to recent admissions, has a history of schizoaffective disorder and a flutter s/p ablation, and was admitted on 10/22/20 01:04 on a 201 voluntary commitment s/p OD and disruptive behavior at [facility]. She was maintained on an outpatient commitment which has been converted to inpatient. Her AMS appears to be resolving but she remains reactive, intrussive, irritable due to paranoia. She is unable to care for herself outside of the hospital and is being referred to [facility]. (1) Intentional drug overdose: 10/26/2020table at this time 10/24/20--appreciate hospitalist consultation re: tachy yesterday 10/22/20--?resolving anticholinergic delirium as seems more thought blocked than yesterday. Will need to restart Seroquel at lower dose. Conversion hearing this pm. (2) Schizophrenia: 10/31/2020atient continues on 200 mg of Seroquel p.o. every morning, 400 mg of seroquel p.o. nightly. Seems to be making improvements on this current dosing. 10/25/20--continue current meds but add standing dose of Klonopin with evening meal given diurnal variation in symptoms (primarily anxiety which drives tachy). 10/23/20--continue current meds, initiate state hospital referral given failure of CRR. 10/22/20--The patient was admitted to the [facility] ([facility]) on q15 min checks (behavioral with suicide precautions) for safety. The patient will participate in group, recreational, and milieu therapies and will be offered additional individual and family sessions as clinically appropriate. Risks/benefits/alternatives reviewed re: her current medications, discussion included but was not limited to risks of TD and need for metabolic monitoring. She will start Seroquel at 1/2 total daily dose today and then full dose tomorrow. (3) Bilateral pneumonia: 10/24/20--completed course of Levaquin 10/22/20--Continue course of antibiotics started on medical service. Inahlers as ordered. Inventory Assets Strengths: family oriented, accepting of services (compared to initial presentation) Needs: housing Risk Factors Assessment Male: No : Yes Do You Have Access To A Gun?: No Health Problems: Yes Mental Health Diagnoses: Yes Substance Use Disorders: No Previous Attempt: Yes Previous Psychiatric Hospitalization: Yes Protective Factors Assessment Jainism Beliefs: Yes : No Responsible for Young Children: No Employed: No Interval History Chief Complaint "I'm okay, nice to see you". Review of Systems Sleep Information Total Hours of Sleep: 7 Sleep Comments: pt appeared to sleep 1.25 hr during evening shift. pt on q-15 minute checks Meal Information Percent Meal Consumed - Breakfast: 100 Percent Meal Consumed - Lunch: 100 Percent Meal Consumed - Dinner: 75 Nutrition Comment: per meal record Subjective Subjective Patient was seen & assessed and interval progress reviewed with treatment team nursing and social work Patient continues to do well on current regimen. Denies any issues with sleep or appetite. No side effects of medication reported or observed. Regarding mood, patient continues to be somewhat labile. At times reporting 10/10 good mood, then complaining of anxiety. Denies any hallucinations today, but is still somewhat paranoid. Participates in group and acts appropriatley with peers, also is still somewhat intrusive at times. Physical Exam Psychiatric A+Ox3, euthymic affect Orientation: alert, oriented to person and oriented to place Apperance: appropriately groomed and + disheveled Eye Contact: + fair eye contact and + poor eye contact Motor Behavior: steady gait and station and + tremor Speech: normal rate/rhythm/volume of speech Affect: + depressed affect and + constricted affect Mood: + depressed mood and + irritable mood Thought Process: + thought blocking and + concrete thought process Thought Content: + paranoid and + delusions Suicidal Thoughts: denies suicidal thoughts Homicidal Thoughts: denies homicidal thoughts Hallucinations: no auditory hallucinations and no visual hallucinations Cognition: + attention not intact Estimated Intelligence: consistent with education level and + below average estimated intelligence Insight: + impaired insight and + severely impaired insight Judgement: + impaired judgement and + severely impaired judgement Vital Signs (Past 24 Hours) Last Vital Signs Temp 36.4 C L 10/31/20 06:00 Pulse 111 H 10/31/20 06:39 Resp 16 10/31/20 06:00 BP 107/55 L 10/31/20 06:39 Pulse Ox 99 10/28/20 20:46 Constitutional WD/WN, vitals as above Eyes + anicteric sclerae; normal pupil size ENMT external ear and nose normal, oropharynx normal Neck trachea midline, no thyromegaly Respiratory normal respiratory effort, lungs clear to auscultation Cardiovascular RRR, no murmur, no edema Rate/Rhythm: regular rhythm and + tachycardic (Mild) Heart Sounds: no murmur Vessels: no JVD Extremities: normal capillary refill; no pedal edema and no edema Chest (Breasts) Chest: normal inspection of chest Gastrointestinal (Abdomen) normal bowel sounds, soft, nontender, no hepatosplenomegaly Musculoskeletal Extremities: extremities normal to inspection; no cyanosis and no clubbing Skin no rashes, warm and dry Neurologic moves all extremities and awake; no focal motor deficits and not confused Lymphatic no lymphedema Results & Data ([facility]) Current Inpatient Medications Current Inpatient Medications: Current Inpatient Medications Acetaminophen (Acetaminophen 325 Mg Tab) 650 mg PO Q4H PRN PRN Reason: Headache or Minor Fever Stop: 11/21/20 01:14 Last Admin: 10/31/20 05:43 Dose: 650 mg Documented by: Al Hydrox/Mg Hydrox/Simethicone (Aluminum/Magnesium Susp 30 Ml Udc) 30 ml PO Q4H PRN PRN Reason: GI Upset Stop: 11/21/20 01:14 Albuterol (Albuterol Hfa 8 Gm Inhaler) 2 puffs INH QID PRN; Protocol PRN Reason: shortness of breath or wheezing or cough Stop: 11/21/20 08:30 Apixaban (Apixaban 5 Mg Tablet) 5 mg PO BID [facility] Stop: 11/21/20 08:59 Last Admin: 10/31/20 09:06 Dose: 5 mg Documented by: Aspirin (Aspirin 81 Mg Ectab) 81 mg PO DAILY DUN[facility] Stop: 11/21/20 08:59 Last Admin: 10/31/20 09:06 Dose: 81 mg Documented by: Clonazepam (Clonazepam 0.5 Mg Tab) 0.5 mg PO BID PRN PRN Reason: Anxiety Stop: 11/24/20 11:58 Clonazepam (Clonazepam 0.5 Mg Tab) 0.5 mg PO DAILYBD [facility] Stop: 11/24/20 17:14 Last Admin: 10/30/20 17:37 Dose: 0.5 mg Documented by: Diltiazem HCl (Diltiazem Hcl 180 Mg Capcr) 180 mg PO QAM [facility]UNIA Stop: 11/21/20 08:59 Last Admin: 10/31/20 09:06 Dose: 180 mg Documented by: Docusate Sodium (Docusate Sodium 100 Mg Cap) 100 mg PO BID [facility] Stop: 11/23/20 11:59 Last Admin: 10/31/20 09:07 Dose: 100 mg Documented by: Ferrous Sulfate (Ferrous Sulfate 325 Mg Tab) 325 mg PO BIDM [facility] Stop: 11/27/20 18:24 Last Admin: 10/31/20 09:07 Dose: 325 mg Documented by: Fish Oil ([place]-3 (Purified Fish Oil) 1 Gm Cap) 1 gm PO DAILY DUN[facility] Stop: 11/21/20 09:44 Last Admin: 10/31/20 09:07 Dose: 1 gm Documented by: Gabapentin (Gabapentin 400 Mg Cap) 400 mg PO TID [facility] Stop: 11/21/20 08:59 Last Admin: 10/31/20 14:19 Dose: 400 mg Documented by: Ipratropium [place] (Ipratropium [place] Nasal [place] 0.06% 15ml) 2 sprays NA BID [facility] Stop: 11/21/20 08:59 Last Admin: 10/31/20 09:07 Dose: Not Given Documented by: Levothyroxine Sodium (Levothyroxine Sodium 88 Mcg Tablet) 88 mcg PO DAILYBB [facility] Stop: 11/22/20 07:59 Last Admin: 10/31/20 07:47 Dose: 88 mcg Documented by: Magnesium Hydroxide (Magnesium Hydroxide Susp 30 Ml Udc) 30 ml PO DAILY PRN PRN Reason: Constipation Stop: 11/21/20 01:14 Psyllium Hydrophilic Mucilloid (Psyllium 58.6% Powder Packet) 1 pkt PO QAM DUNIA Stop: 11/26/20 08:59 Last Admin: 10/31/20 08:26 Dose: 1 pkt Documented by: Quetiapine Fumarate (Quetiapine Fumarate 200 Mg Tab) 200 mg PO DAILY [facility] Stop: 11/21/20 09:59 Last Admin: 10/31/20 09:07 Dose: 200 mg Documented by: Quetiapine Fumarate (Quetiapine Fumarate 200 Mg Tab) 400 mg PO HS DUNIA Stop: 11/21/20 21:59 Last Admin: 10/30/20 20:59 Dose: 400 mg Documented by: Quetiapine Fumarate (Quetiapine Fumarate 100 Mg Tablet) 100 mg PO Q6 PRN PRN Reason: Anxiety/Agitation Stop: 11/21/20 17:59 Last Admin: 10/22/20 17:24 Dose: 100 mg Documented by: Simvastatin (Simvastatin 40 Mg Tab) 40 mg PO HS DUNIA Stop: 11/21/20 21:59 Last Admin: 10/30/20 20:59 Dose: 40 mg Documented by: Sodium Chloride (Sodium Chloride 0.65% Na Soln 45 Ml ([place])) 1 - 2 sprays NA PRN PRN PRN Reason: Nasal Dryness/Congestion Stop: 11/21/20 01:14 Trazodone HCl (Trazodone Hcl 100 Mg Tab) 100 mg PO HS DUNIA Stop: 11/21/20 21:59 Last Admin: 10/30/20 20:59 Dose: 100 mg Documented by: Trimethoprim/Sulfamethoxazole (Sulfamethoxazole/Trimethoprim Ds 800/160mg Tab) 1 tab PO Q12 DUNIA Stop: 11/21/20 08:59 Last Admin: 10/31/20 09:07 Dose: 1 tab Documented by: Umeclidinium [place] (Umeclidinium [place] 62.5mcg/Blister 7 Puffs/Inhaler) 1 puffs INH DAILY DUNIA; Protocol Stop: 11/21/20 09:44 Last Admin: 10/31/20 09:08 Dose: Not Given Documented by: Mental Health & Subst Abuse Tx Psychiatrist Name of Psychiatrist: Velvet Sanchez Psychiatrist's Psychiatric Appointment Comment: [id number] [facility] Supervisor Drapery Hanging Name of Supervisor Drapery Hanging: [facility] Phone Number for Supervisor Drapery Hanging: [phone] Post Discharge Appointments Primary Care Physician Name Of Family Doctor: MAN Lancaster (JADEN Olvera) Primary Care Provider Appointment Comment: [address] [place] [address] Corey Paredes Specialist Name of Specialist: MAN Cardiology - Dr. Ga Villareal Phone Number for Specialist: [phone] Specialty Appointment Comment: [address] [facility], [address], [place] Contact Information Discharge (1) Intentional drug overdose Encounter type: sequela Qualified Code(s): T50.902S - Poisoning by unspecified drugs, medicaments and biological substances, intentional self-harm, sequela (2) Schizophrenia Schizophrenia type: unspecified Qualified Code(s): F20.9 - Schizophrenia, unspecified (3) Bilateral pneumonia Pneumonia type: due to unspecified organism Lung location: upper lobe of lung Qualified Code(s): J18.9 - Pneumonia, unspecified organism
[2020-10-31] MEDS: clonazePAM 0.5 MG TAB PO SCH (17:29)
[2020-10-31] MEDS: SIMVASTATIN 40 MG TAB PO SCH (21:08)
[2020-10-31] MEDS: traZODone HCL 100 MG TAB PO SCH (21:09)
[2020-11-01] MEDS: LEVOTHYROXINE SODIUM 88 MCG TABLET PO SCH (07:29)
[2020-11-01] MEDS: APIXABAN 5 MG TABLET PO SCH ×2 (08:13→20:53)
[2020-11-01] MEDS: ASPIRIN 81 MG ECTAB PO SCH (08:13)
[2020-11-01] MEDS: DOCUSATE SODIUM 100 MG CAP PO SCH ×2 (08:14→20:53)
[2020-11-01] MEDS: FERROUS SULFATE 325 MG TAB PO SCH ×2 (08:14→17:26)
[2020-11-01] MEDS: dilTIAZem HCL 180 MG CAPCR PO SCH (08:14)
[2020-11-01] MEDS: GABAPENTIN 400 MG CAP PO SCH ×3 (08:15→20:53)
[2020-11-01] MEDS: PSYLLIUM 58.6% POWDER PACKET PO SCH (08:15)
[2020-11-01] MEDS: QUEtiapine FUMARATE 200 MG TAB PO SCH ×2 (08:15→20:53)
[2020-11-01] MEDS: OMEGA-3 (PURIFIED FISH OIL) 1 GM CAP PO SCH (08:15)
[2020-11-01] MEDS: IPRATROPIUM BROMIDE NASAL SPRAY 0.06% 15ML SCH ×2 (08:16→20:53)
[2020-11-01] MEDS: SULFAMETHOXAZOLE/TRIMETHOPRIM DS 800/160MG TAB PO SCH ×2 (08:16→20:53)
[2020-11-01] MEDS: UMECLIDINIUM BROMIDE 62.5MCG/BLISTER 7 PUFFS/INHALER INH SCH (08:17)
--- NOTE | 2020-11-01 13:32 | Psychiatric Progress Note ---
Date of Service November 01, 2020 Impression / Recommendations Impression DEANDRE THOMPSON is a 60-year-old F, well known to due to recent admissions, has a history of schizoaffective disorder and a flutter s/p ablation, and was admitted on 10/22/20 01:04 on a 201 voluntary commitment s/p OD and disruptive behavior at [facility]. She was maintained on an outpatient commitment which has been converted to inpatient. Her AMS appears to be resolving but she remains reactive, intrussive, irritable due to paranoia. She is unable to care for herself outside of the hospital and is being referred to [facility]. (1) Intentional drug overdose: 10/26/2020table at this time 10/24/20--appreciate hospitalist consultation re: tachy yesterday 10/22/20--?resolving anticholinergic delirium as seems more thought blocked than yesterday. Will need to restart Seroquel at lower dose. Conversion hearing this pm. (2) Schizophrenia: 11/01/2020-- Patient continues on Seroquel 60mmg total daily dose. Reports no adverse effects. 10/31/2020atient continues on 200 mg of Seroquel p.o. every morning, 400 mg of seroquel p.o. nightly. Seems to be making improvements on this current dosing. 10/25/20--continue current meds but add standing dose of Klonopin with evening meal given diurnal variation in symptoms (primarily anxiety which drives tachy). 10/23/20--continue current meds, initiate state hospital referral given failure of [facility]. 10/22/20--[facility] on q15 min checks (behavioral with suicide precautions) for safety. The patient will participate in group, recreational, and milieu therapies and will be offered additional individual and family sessions as clinically appropriate. Risks/benefits/alternatives reviewed re: her current medications, discussion included but was not limited to risks of TD and need for metabolic monitoring. She will start Seroquel at 1/2 total daily dose today and then full dose tomorrow. (3) Bilateral pneumonia: 10/24/20--completed course of Levaquin 10/22/20--Continue course of antibiotics started on medical service. Inahlers as ordered. Inventory Assets Strengths: family oriented, accepting of services (compared to initial presentation) Needs: housing Risk Factors Assessment Male: No : Yes Do You Have Access To A Gun?: No Health Problems: Yes Mental Health Diagnoses: Yes Substance Use Disorders: No Previous Attempt: Yes Previous Psychiatric Hospitalization: Yes Protective Factors Assessment Rastafari Beliefs: Yes : No Responsible for Young Children: No Employed: No Interval History Chief Complaint "I'm okay". Review of Systems Sleep Information Total Hours of Sleep: 7 Sleep Comments: pt appeared to sleep 1.25 hr during evening shift. pt on q-15 minute checks Meal Information Percent Meal Consumed - Breakfast: 75 Percent Meal Consumed - Lunch: 100 Percent Meal Consumed - Dinner: 90 Nutrition Comment: per meal record Subjective Subjective Patient was seen & assessed and interval progress reviewed with treatment team nursing and social work Patient denies any side effects of the medications. Reports feeling more stable on the regimen. Patient states that she is still paranoid at times but states it is more fleeting and less distressing. Patient eating and sleeping well. Denies any chest pain or palpitations. Patient's thought process noted to be tangential at times. Can not seem to process her loss of apartment as permanent. Social work continues to search for safe living arrangements. Physical Exam Psychiatric A+Ox3, euthymic affect Orientation: alert, oriented to person and oriented to place Apperance: appropriately groomed and + disheveled Eye Contact: + fair eye contact and + poor eye contact Motor Behavior: steady gait and station and + tremor Speech: normal rate/rhythm/volume of speech Affect: + depressed affect and + constricted affect Mood: + depressed mood and + irritable mood Thought Process: + thought blocking and + concrete thought process Thought Content: + paranoid and + delusions Suicidal Thoughts: denies suicidal thoughts Homicidal Thoughts: denies homicidal thoughts Hallucinations: no auditory hallucinations and no visual hallucinations Cognition: + attention not intact Estimated Intelligence: consistent with education level and + below average estimated intelligence Insight: + impaired insight and + severely impaired insight Judgement: + impaired judgement and + severely impaired judgement Vital Signs (Past 24 Hours) Last Vital Signs Temp 36.6 C 11/01/20 06:00 Pulse 90 11/01/20 06:25 Resp 16 11/01/20 06:00 BP 112/70 11/01/20 06:25 Pulse Ox 99 10/28/20 20:46 Constitutional WD/WN, vitals as above Eyes + anicteric sclerae; normal pupil size ENMT external ear and nose normal, oropharynx normal Neck trachea midline, no thyromegaly Respiratory normal respiratory effort, lungs clear to auscultation Cardiovascular RRR, no murmur, no edema Rate/Rhythm: regular rhythm and + tachycardic (Mild) Heart Sounds: no murmur Vessels: no JVD Extremities: normal capillary refill; no pedal edema and no edema Chest (Breasts) Chest: normal inspection of chest Gastrointestinal (Abdomen) normal bowel sounds, soft, nontender, no hepatosplenomegaly Musculoskeletal Extremities: extremities normal to inspection; no cyanosis and no clubbing Skin no rashes, warm and dry Neurologic moves all extremities and awake; no focal motor deficits and not confused Lymphatic no lymphedema Results & Data ([facility]) Current Inpatient Medications Current Inpatient Medications: Current Inpatient Medications Acetaminophen (Acetaminophen 325 Mg Tab) 650 mg PO Q4H PRN PRN Reason: Headache or Minor Fever Stop: 11/21/20 01:14 Last Admin: 10/31/20 05:43 Dose: 650 mg Documented by: Al Hydrox/Mg Hydrox/Simethicone (Aluminum/Magnesium Susp 30 Ml Udc) 30 ml PO Q4H PRN PRN Reason: GI Upset Stop: 11/21/20 01:14 Albuterol (Albuterol Hfa 8 Gm Inhaler) 2 puffs INH QID PRN; Protocol PRN Reason: shortness of breath or wheezing or cough Stop: 11/21/20 08:30 Apixaban (Apixaban 5 Mg Tablet) 5 mg PO BID DUNIA Stop: 11/21/20 08:59 Last Admin: 11/01/20 08:13 Dose: 5 mg Documented by: Aspirin (Aspirin 81 Mg Ectab) 81 mg PO DAILY DUNIA Stop: 11/21/20 08:59 Last Admin: 11/01/20 08:13 Dose: 81 mg Documented by: Clonazepam (Clonazepam 0.5 Mg Tab) 0.5 mg PO BID PRN PRN Reason: Anxiety Stop: 11/24/20 11:58 Clonazepam (Clonazepam 0.5 Mg Tab) 0.5 mg PO DAILYBD DUNIA Stop: 11/24/20 17:14 Last Admin: 10/31/20 17:29 Dose: 0.5 mg Documented by: Diltiazem HCl (Diltiazem Hcl 180 Mg Capcr) 180 mg PO QAM [facility] Stop: 11/21/20 08:59 Last Admin: 11/01/20 08:14 Dose: 180 mg Documented by: Docusate Sodium (Docusate Sodium 100 Mg Cap) 100 mg PO BID DUNIA Stop: 11/23/20 11:59 Last Admin: 11/01/20 08:14 Dose: 100 mg Documented by: Ferrous Sulfate (Ferrous Sulfate 325 Mg Tab) 325 mg PO BIDM [facility]UN[facility] Stop: 11/27/20 18:24 Last Admin: 11/01/20 08:14 Dose: 325 mg Documented by: Fish Oil ([place]-3 (Purified Fish Oil) 1 Gm Cap) 1 gm PO DAILY DUNIA Stop: 11/21/20 09:44 Last Admin: 11/01/20 08:15 Dose: 1 gm Documented by: Gabapentin (Gabapentin 400 Mg Cap) 400 mg PO TID [facility] Stop: 11/21/20 08:59 Last Admin: 11/01/20 08:15 Dose: 400 mg Documented by: Ipratropium [place] (Ipratropium [place] Nasal [place] 0.06% 15ml) 2 sprays NA BID [facility] Stop: 11/21/20 08:59 Last Admin: 11/01/20 08:16 Dose: Not Given Documented by: Levothyroxine Sodium (Levothyroxine Sodium 88 Mcg Tablet) 88 mcg PO DAILYBB [facility] Stop: 11/22/20 07:59 Last Admin: 11/01/20 07:29 Dose: 88 mcg Documented by: Magnesium Hydroxide (Magnesium Hydroxide Susp 30 Ml Udc) 30 ml PO DAILY PRN PRN Reason: Constipation Stop: 11/21/20 01:14 Psyllium Hydrophilic Mucilloid (Psyllium 58.6% Powder Packet) 1 pkt PO QAM [facility] Stop: 11/26/20 08:59 Last Admin: 11/01/20 08:15 Dose: 1 pkt Documented by: Quetiapine Fumarate (Quetiapine Fumarate 200 Mg Tab) 200 mg PO DAILY [facility] Stop: 11/21/20 09:59 Last Admin: 11/01/20 08:15 Dose: 200 mg Documented by: Quetiapine Fumarate (Quetiapine Fumarate 200 Mg Tab) 400 mg PO HS [facility] Stop: 06/24/21 21:59 Last Admin: 10/31/20 21:08 Dose: 400 mg Documented by: Quetiapine Fumarate (Quetiapine Fumarate 100 Mg Tablet) 100 mg PO Q6 PRN PRN Reason: Anxiety/Agitation Stop: 11/21/20 17:59 Last Admin: 10/22/20 17:24 Dose: 100 mg Documented by: Simvastatin (Simvastatin 40 Mg Tab) 40 mg PO HS [facility]UN[facility] Stop: 11/21/20 21:59 Last Admin: 10/31/20 21:08 Dose: 40 mg Documented by: Sodium Chloride (Sodium Chloride 0.65% Na Soln 45 Ml ([place])) 1 - 2 sprays NA PRN PRN PRN Reason: Nasal Dryness/Congestion Stop: 11/21/20 01:14 Trazodone HCl (Trazodone Hcl 100 Mg Tab) 100 mg PO HS [facility] Stop: 11/21/20 21:59 Last Admin: 10/31/20 21:09 Dose: 100 mg Documented by: Trimethoprim/Sulfamethoxazole (Sulfamethoxazole/Trimethoprim Ds 800/160mg Tab) 1 tab PO Q12 [facility] Stop: 11/21/20 08:59 Last Admin: 11/01/20 08:16 Dose: 1 tab Documented by: Umeclidinium [place] (Umeclidinium [place] 62.5mcg/Blister 7 Puffs/Inhaler) 1 puffs INH DAILY DUNIA; Protocol Stop: 11/21/20 09:44 Last Admin: 11/01/20 08:17 Dose: Not Given Documented by: Mental Health & Subst Abuse Tx Psychiatrist Name of Psychiatrist: Velvet Sanchez Psychiatrist's Psychiatric Appointment Comment: [address] [facility] Carpenter Foreman Name of Carpenter Foreman: [facility] Phone Number for Carpenter Foreman: [phone] Post Discharge Appointments Primary Care Physician Name Of Family Doctor: MAN - Dr. Lancaster (JADEN Olvera) Primary Care Provider Appointment Comment: [address] [place] [address] Specialist Name of Specialist: MAN Cardiology - Dr. Ga Villareal Phone Number for Specialist: [phone] Specialty Appointment Comment: [address] [facility], [address], [place] Contact Information Discharge (1) Intentional drug overdose Encounter type: sequela Qualified Code(s): T50.902S - Poisoning by unspecified drugs, medicaments and biological substances, intentional self-harm, sequela (2) Schizophrenia Schizophrenia type: unspecified Qualified Code(s): F20.9 - Schizophrenia, unspecified (3) Bilateral pneumonia Pneumonia type: due to unspecified organism Lung location: upper lobe of lung Qualified Code(s): J18.9 - Pneumonia, unspecified organism
[2020-11-01] MEDS: clonazePAM 0.5 MG TAB PO SCH (17:26)
[2020-11-01] MEDS: traZODone HCL 100 MG TAB PO SCH (20:54)
[2020-11-01] MEDS: SIMVASTATIN 40 MG TAB PO SCH (20:54)
[2020-11-02] MEDS: LEVOTHYROXINE SODIUM 88 MCG TABLET PO SCH (08:24)
[2020-11-02] MEDS: FERROUS SULFATE 325 MG TAB PO SCH ×2 (08:51→17:05)
[2020-11-02] MEDS: APIXABAN 5 MG TABLET PO SCH ×2 (08:51→20:59)
[2020-11-02] MEDS: ASPIRIN 81 MG ECTAB PO SCH (08:52)
[2020-11-02] MEDS: dilTIAZem HCL 180 MG CAPCR PO SCH (08:52)
[2020-11-02] MEDS: DOCUSATE SODIUM 100 MG CAP PO SCH ×2 (08:52→20:58)
[2020-11-02] MEDS: OMEGA-3 (PURIFIED FISH OIL) 1 GM CAP PO SCH (08:53)
[2020-11-02] MEDS: GABAPENTIN 400 MG CAP PO SCH ×3 (08:53→20:59)
[2020-11-02] MEDS: SULFAMETHOXAZOLE/TRIMETHOPRIM DS 800/160MG TAB PO SCH ×2 (08:54→20:58)
[2020-11-02] MEDS: QUEtiapine FUMARATE 200 MG TAB PO SCH ×2 (08:54→20:58)
[2020-11-02] MEDS: PSYLLIUM 58.6% POWDER PACKET PO SCH (08:54)
[2020-11-02] MEDS: IPRATROPIUM BROMIDE NASAL SPRAY 0.06% 15ML SCH ×2 (08:55→21:01)
[2020-11-02] MEDS: UMECLIDINIUM BROMIDE 62.5MCG/BLISTER 7 PUFFS/INHALER INH SCH (08:55)
--- NOTE | 2020-11-02 15:01 | Psychiatric Progress Note ---
Date of Service November 02, 2020 Impression / Recommendations Impression DEANDRE THOMPSON is a 60-year-old F, well known to due to recent admissions, has a history of schizoaffective disorder and a flutter s/p ablation, and was admitted on 10/22/20 01:04 on a 201 voluntary commitment s/p OD and disruptive behavior at [facility]. She was maintained on an outpatient commitment which has been converted to inpatient. Her AMS appears to be resolving but she remains reactive, intrussive, irritable due to paranoia. She is unable to care for herself outside of the hospital and is being referred to [facility]. (1) Intentional drug overdose: 10/26/2020table at this time 10/24/20--appreciate hospitalist consultation re: tachy yesterday 10/22/20--?resolving anticholinergic delirium as seems more thought blocked than yesterday. Will need to restart Seroquel at lower dose. Conversion hearing this pm. 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 Reports no adverse effects. 10/31/2020atient continues on 200 mg of Seroquel p.o. every morning, 400 mg of seroquel p.o. nightly. Seems to be making improvements on this current dosing. 10/25/20--continue current meds but add standing dose of Klonopin with evening meal given diurnal variation in symptoms (primarily anxiety which drives tachy). 10/23/20--continue current meds, initiate critical access hospital hospital referral given failure of [facility]R. 10/22/20--[facility] on q15 min checks (behavioral with suicide precautions) for safety. The patient will participate in group, recreational, and milieu therapies and will be offered additional individual and family sessions as clinically appropriate. Risks/benefits/alternatives reviewed re: her current medications, discussion included but was not limited to risks of TD and need for metabolic monitoring. She will start Seroquel at 1/2 total daily dose today and then full dose tomorrow. (3) Bilateral pneumonia: 11/02/20- patients medical issues resolved - 10/24/20--completed course of Levaquin 10/22/20--Continue course of antibiotics started on medical service. Inahlers as ordered. Inventory Assets Strengths: family oriented, accepting of services (compared to initial presentation) Needs: housing Risk Factors Assessment Male: No : Yes Do You Have Access To A Gun?: No Health Problems: Yes Mental Health Diagnoses: Yes Substance Use Disorders: No Previous Attempt: Yes Previous Psychiatric Hospitalization: Yes Protective Factors Assessment Synagogue Beliefs: Yes : No Responsible for Young Children: No Employed: No Interval History Chief Complaint "[I wish we could appeal this [place] thing I do not think I should have to go to [facility]]". Review of Systems Sleep Information Total Hours of Sleep: 7 Sleep Comments: pt appeared to sleep 1.25 hr during evening shift. pt on q-15 minute checks Meal Information Percent Meal Consumed - Breakfast: 100 Percent Meal Consumed - Lunch: 100 Percent Meal Consumed - Dinner: 100 Nutrition Comment: per meal record Subjective Subjective Patient was seen & assessed and interval progress reviewed with Nursing and Social work. Patient reports doing better. Patient feels that she should not have to go to [facility]. I think I need another chance I would like to go home" my life was fine before" Patient unclear about what she would do once she gets home however does not think going to the [facility] is" the answer" Physical Exam Psychiatric A+Ox3, euthymic affect Orientation: alert, oriented to person and oriented to place Apperance: appropriately groomed; not disheveled Eye Contact: + fair eye contact; not poor eye contact Motor Behavior: steady gait and station and + tremor Speech: normal rate/rhythm/volume of speech Affect: + depressed affect and + constricted affect Mood: + depressed mood and + irritable mood Thought Process: + concrete thought process; no thought blocking Thought Content: + paranoid, + delusions and + loneliness Suicidal Thoughts: denies suicidal thoughts Homicidal Thoughts: denies homicidal thoughts Hallucinations: no auditory hallucinations and no visual hallucinations Cognition: + attention not intact Estimated Intelligence: consistent with education level; estimated intelligence not below average Insight: + poor insight and + impaired insight; not severely impaired insight Judgement: + impaired judgement; not severely impaired judgement Vital Signs (Past 24 Hours) Last Vital Signs Temp 36.8 C 11/02/20 06:26 Pulse 105 H 11/02/20 06:27 Resp 16 11/02/20 06:26 BP 101/66 11/02/20 06:27 Pulse Ox 99 10/28/20 20:46 Constitutional WD/WN, vitals as above Results & Data ([facility]) Current Inpatient Medications Current Inpatient Medications: Current Inpatient Medications Acetaminophen (Acetaminophen 325 Mg Tab) 650 mg PO Q4H PRN PRN Reason: Headache or Minor Fever Stop: 11/21/20 01:14 Last Admin: 10/31/20 05:43 Dose: 650 mg Documented by: Al Hydrox/Mg Hydrox/Simethicone (Aluminum/Magnesium Susp 30 Ml Udc) 30 ml PO Q4H PRN PRN Reason: GI Upset Stop: 11/21/20 01:14 Albuterol (Albuterol Hfa 8 Gm Inhaler) 2 puffs INH QID PRN; Protocol PRN Reason: shortness of breath or wheezing or cough Stop: 11/21/20 08:30 Apixaban (Apixaban 5 Mg Tablet) 5 mg PO BID DUNIA Stop: 11/21/20 08:59 Last Admin: 11/02/20 08:51 Dose: 5 mg Documented by: Aspirin (Aspirin 81 Mg Ectab) 81 mg PO DAILY [facility]UNIA Stop: 11/21/20 08:59 Last Admin: 11/02/20 08:52 Dose: 81 mg Documented by: Clonazepam (Clonazepam 0.5 Mg Tab) 0.5 mg PO BID PRN PRN Reason: Anxiety Stop: 11/24/20 11:58 Clonazepam (Clonazepam 0.5 Mg Tab) 0.5 mg PO DAILYBD [facility] Stop: 11/24/20 17:14 Last Admin: 11/01/20 17:26 Dose: 0.5 mg Documented by: Diltiazem HCl (Diltiazem Hcl 180 Mg Capcr) 180 mg PO QAM [facility] Stop: 11/21/20 08:59 Last Admin: 11/02/20 08:52 Dose: 180 mg Documented by: Docusate Sodium (Docusate Sodium 100 Mg Cap) 100 mg PO BID [facility] Stop: 11/23/20 11:59 Last Admin: 11/02/20 08:52 Dose: 100 mg Documented by: Ferrous Sulfate (Ferrous Sulfate 325 Mg Tab) 325 mg PO BIDM [facility] Stop: 11/27/20 18:24 Last Admin: 11/02/20 08:51 Dose: 325 mg Documented by: Fish Oil ([place]-3 (Purified Fish Oil) 1 Gm Cap) 1 gm PO DAILY [facility] Stop: 11/21/20 09:44 Last Admin: 11/02/20 08:53 Dose: 1 gm Documented by: Gabapentin (Gabapentin 400 Mg Cap) 400 mg PO TID [facility] Stop: 11/21/20 08:59 Last Admin: 11/02/20 14:48 Dose: 400 mg Documented by: Ipratropium [place] (Ipratropium [place] Nasal [place] 0.06% 15ml) 2 sprays NA BID [facility] Stop: 11/21/20 08:59 Last Admin: 11/02/20 08:55 Dose: Not Given Documented by: Levothyroxine Sodium (Levothyroxine Sodium 88 Mcg Tablet) 88 mcg PO DAILYBB [facility] Stop: 11/22/20 07:59 Last Admin: 11/02/20 08:24 Dose: 88 mcg Documented by: Magnesium Hydroxide (Magnesium Hydroxide Susp 30 Ml Udc) 30 ml PO DAILY PRN PRN Reason: Constipation Stop: 11/21/20 01:14 Psyllium Hydrophilic Mucilloid (Psyllium 58.6% Powder Packet) 1 pkt PO QAM [facility] Stop: 11/26/20 08:59 Last Admin: 11/02/20 08:54 Dose: 1 pkt Documented by: Quetiapine Fumarate (Quetiapine Fumarate 200 Mg Tab) 200 mg PO DAILY [facility] Stop: 11/21/20 09:59 Last Admin: 11/02/20 08:54 Dose: 200 mg Documented by: Quetiapine Fumarate (Quetiapine Fumarate 200 Mg Tab) 400 mg PO HS [facility] Stop: 11/21/20 21:59 Last Admin: 11/01/20 20:53 Dose: 400 mg Documented by: Quetiapine Fumarate (Quetiapine Fumarate 100 Mg Tablet) 100 mg PO Q6 PRN PRN Reason: Anxiety/Agitation Stop: 11/21/20 17:59 Last Admin: 10/22/20 17:24 Dose: 100 mg Documented by: Simvastatin (Simvastatin 40 Mg Tab) 40 mg PO HS [facility] Stop: 11/21/20 21:59 Last Admin: 11/01/20 20:54 Dose: 40 mg Documented by: Sodium Chloride (Sodium Chloride 0.65% Na Soln 45 Ml ([place])) 1 - 2 sprays NA PRN PRN PRN Reason: Nasal Dryness/Congestion Stop: 11/21/20 01:14 Trazodone HCl (Trazodone Hcl 100 Mg Tab) 100 mg PO HS [facility] Stop: 11/21/20 21:59 Last Admin: 11/01/20 20:54 Dose: 100 mg Documented by: Trimethoprim/Sulfamethoxazole (Sulfamethoxazole/Trimethoprim Ds 800/160mg Tab) 1 tab PO Q12 [facility] Stop: 11/21/20 08:59 Last Admin: 11/02/20 08:54 Dose: 1 tab Documented by: Umeclidinium [place] (Umeclidinium [place] 62.5mcg/Blister 7 Puffs/Inhaler) 1 puffs INH DAILY DUNIA; Protocol Stop: 11/21/20 09:44 Last Admin: 11/02/20 08:55 Dose: Not Given Documented by: Mental Health & Subst Abuse Tx Psychiatrist Name of Psychiatrist: Velvet Sanchez Psychiatrist's Psychiatric Appointment Comment: [id number] [facility] Home Therapy Teacher Name of Home Therapy Teacher: [facility] Phone Number for Home Therapy Teacher: [phone] Post Discharge Appointments Primary Care Physician Name Of Family Doctor: MAN Lancaster (JADEN Olvera) Primary Care Provider Appointment Comment: [address] [place] [address] Specialist Name of Specialist: MAN Cardiology - Dr. Ga Villareal Phone Number for Specialist: [phone] Specialty Appointment Comment: [address] [facility], [address], [place] Contact Information Discharge (1) Intentional drug overdose Encounter type: sequela Qualified Code(s): T50.902S - Poisoning by unspecified drugs, medicaments and biological substances, intentional self-harm, sequela (2) Schizophrenia Schizophrenia type: unspecified Qualified Code(s): F20.9 - Schizophrenia, unspecified (3) Bilateral pneumonia Lung location: upper lobe of lung Pneumonia type: due to unspecified organism Qualified Code(s): J18.9 - Pneumonia, unspecified organism
[2020-11-02] MEDS: clonazePAM 0.5 MG TAB PO SCH (17:05)
[2020-11-02] MEDS: SIMVASTATIN 40 MG TAB PO SCH (20:59)
[2020-11-02] MEDS: traZODone HCL 100 MG TAB PO SCH (20:59)
[2020-11-03] MEDS: LEVOTHYROXINE SODIUM 88 MCG TABLET PO SCH (08:02)
[2020-11-03] MEDS: APIXABAN 5 MG TABLET PO SCH ×2 (08:28→21:21)
[2020-11-03] MEDS: ASPIRIN 81 MG ECTAB PO SCH (08:28)
[2020-11-03] MEDS: dilTIAZem HCL 180 MG CAPCR PO SCH (08:29)
[2020-11-03] MEDS: FERROUS SULFATE 325 MG TAB PO SCH ×2 (08:30→17:07)
[2020-11-03] MEDS: DOCUSATE SODIUM 100 MG CAP PO SCH ×2 (08:30→21:22)
[2020-11-03] MEDS: GABAPENTIN 400 MG CAP PO SCH ×3 (08:30→21:20)
[2020-11-03] MEDS: OMEGA-3 (PURIFIED FISH OIL) 1 GM CAP PO SCH (08:30)
[2020-11-03] MEDS: IPRATROPIUM BROMIDE NASAL SPRAY 0.06% 15ML SCH ×2 (08:31→21:21)
[2020-11-03] MEDS: PSYLLIUM 58.6% POWDER PACKET PO SCH (08:31)
[2020-11-03] MEDS: SULFAMETHOXAZOLE/TRIMETHOPRIM DS 800/160MG TAB PO SCH ×2 (08:32→21:27)
[2020-11-03] MEDS: UMECLIDINIUM BROMIDE 62.5MCG/BLISTER 7 PUFFS/INHALER INH SCH (08:32)
[2020-11-03] MEDS: QUEtiapine FUMARATE 200 MG TAB PO SCH ×2 (08:32→21:25)
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
[2020-11-03] MEDS: clonazePAM 0.5 MG TAB PO SCH (17:08)
[2020-11-03] MEDS: traZODone HCL 100 MG TAB PO SCH (21:26)
[2020-11-03] MEDS: SIMVASTATIN 40 MG TAB PO SCH (21:26)
[2020-11-04] MEDS: DOCUSATE SODIUM 100 MG CAP PO SCH ×2 (08:21→21:14)
[2020-11-04] MEDS: APIXABAN 5 MG TABLET PO SCH ×2 (08:21→21:14)
[2020-11-04] MEDS: LEVOTHYROXINE SODIUM 88 MCG TABLET PO SCH (08:21)
[2020-11-04] MEDS: ASPIRIN 81 MG ECTAB PO SCH (08:21)
[2020-11-04] MEDS: dilTIAZem HCL 180 MG CAPCR PO SCH (08:21)
[2020-11-04] MEDS: PSYLLIUM 58.6% POWDER PACKET PO SCH (08:22)
[2020-11-04] MEDS: SULFAMETHOXAZOLE/TRIMETHOPRIM DS 800/160MG TAB PO SCH ×2 (08:22→21:14)
[2020-11-04] MEDS: GABAPENTIN 400 MG CAP PO SCH ×3 (08:22→21:14)
[2020-11-04] MEDS: UMECLIDINIUM BROMIDE 62.5MCG/BLISTER 7 PUFFS/INHALER INH SCH (08:22)
[2020-11-04] MEDS: OMEGA-3 (PURIFIED FISH OIL) 1 GM CAP PO SCH (08:22)
[2020-11-04] MEDS: QUEtiapine FUMARATE 200 MG TAB PO SCH ×2 (08:22→21:13)
[2020-11-04] MEDS: FERROUS SULFATE 325 MG TAB PO SCH ×2 (08:22→17:20)
[2020-11-04] MEDS: IPRATROPIUM BROMIDE NASAL SPRAY 0.06% 15ML SCH ×2 (08:22→21:14)
[2020-11-04] MEDS: clonazePAM 0.5 MG TAB PO SCH (17:20)
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
[2020-11-04] MEDS: SIMVASTATIN 40 MG TAB PO SCH (21:14)
[2020-11-04] MEDS: traZODone HCL 100 MG TAB PO SCH (21:14)
[2020-11-05] MEDS: LEVOTHYROXINE SODIUM 88 MCG TABLET PO SCH (07:58)
[2020-11-05] MEDS: APIXABAN 5 MG TABLET PO SCH ×2 (08:29→20:56)
[2020-11-05] MEDS: ASPIRIN 81 MG ECTAB PO SCH (08:29)
[2020-11-05] MEDS: DOCUSATE SODIUM 100 MG CAP PO SCH ×2 (08:30→20:56)
[2020-11-05] MEDS: FERROUS SULFATE 325 MG TAB PO SCH ×2 (08:30→17:22)
[2020-11-05] MEDS: dilTIAZem HCL 180 MG CAPCR PO SCH (08:30)
[2020-11-05] MEDS: OMEGA-3 (PURIFIED FISH OIL) 1 GM CAP PO SCH (08:31)
[2020-11-05] MEDS: GABAPENTIN 400 MG CAP PO SCH ×3 (08:31→20:57)
[2020-11-05] MEDS: PSYLLIUM 58.6% POWDER PACKET PO SCH (08:32)
[2020-11-05] MEDS: SULFAMETHOXAZOLE/TRIMETHOPRIM DS 800/160MG TAB PO SCH ×2 (08:32→20:57)
[2020-11-05] MEDS: IPRATROPIUM BROMIDE NASAL SPRAY 0.06% 15ML SCH ×2 (08:32→21:00)
[2020-11-05] MEDS: QUEtiapine FUMARATE 200 MG TAB PO SCH ×2 (08:32→20:56)
[2020-11-05] MEDS: UMECLIDINIUM BROMIDE 62.5MCG/BLISTER 7 PUFFS/INHALER INH SCH (08:33)
[2020-11-05] MEDS: clonazePAM 0.5 MG TAB PO SCH (17:22)
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
[2020-11-05] MEDS: SIMVASTATIN 40 MG TAB PO SCH (20:56)
[2020-11-05] MEDS: traZODone HCL 100 MG TAB PO SCH (20:57)
[2020-11-06] MEDS: LEVOTHYROXINE SODIUM 88 MCG TABLET PO SCH (07:20)
[2020-11-06] MEDS: PSYLLIUM 58.6% POWDER PACKET PO SCH (08:35)
[2020-11-06] MEDS: ASPIRIN 81 MG ECTAB PO SCH (08:36)
[2020-11-06] MEDS: APIXABAN 5 MG TABLET PO SCH ×2 (08:36→21:11)
[2020-11-06] MEDS: FERROUS SULFATE 325 MG TAB PO SCH ×2 (08:37→17:18)
[2020-11-06] MEDS: DOCUSATE SODIUM 100 MG CAP PO SCH ×2 (08:37→21:11)
[2020-11-06] MEDS: dilTIAZem HCL 180 MG CAPCR PO SCH (08:37)
[2020-11-06] MEDS: OMEGA-3 (PURIFIED FISH OIL) 1 GM CAP PO SCH (08:38)
[2020-11-06] MEDS: IPRATROPIUM BROMIDE NASAL SPRAY 0.06% 15ML SCH ×2 (08:38→21:12)
[2020-11-06] MEDS: GABAPENTIN 400 MG CAP PO SCH ×3 (08:38→21:11)
[2020-11-06] MEDS: QUEtiapine FUMARATE 200 MG TAB PO SCH ×2 (08:38→21:12)
[2020-11-06] MEDS: SULFAMETHOXAZOLE/TRIMETHOPRIM DS 800/160MG TAB PO SCH ×2 (08:38→21:11)
[2020-11-06] MEDS: UMECLIDINIUM BROMIDE 62.5MCG/BLISTER 7 PUFFS/INHALER INH SCH (08:39)
[2020-11-06] MEDS: clonazePAM 0.5 MG TAB PO SCH (17:19)
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
[2020-11-06] MEDS: traZODone HCL 100 MG TAB PO SCH (21:12)
[2020-11-06] MEDS: SIMVASTATIN 40 MG TAB PO SCH (21:12)
[2020-11-07] MEDS: LEVOTHYROXINE SODIUM 88 MCG TABLET PO SCH (08:04)
[2020-11-07] MEDS: PSYLLIUM 58.6% POWDER PACKET PO SCH (08:29)
[2020-11-07] MEDS: APIXABAN 5 MG TABLET PO SCH ×2 (08:30→21:35)
[2020-11-07] MEDS: ASPIRIN 81 MG ECTAB PO SCH (08:31)
[2020-11-07] MEDS: dilTIAZem HCL 180 MG CAPCR PO SCH (08:31)
[2020-11-07] MEDS: DOCUSATE SODIUM 100 MG CAP PO SCH ×2 (08:31→21:35)
[2020-11-07] MEDS: OMEGA-3 (PURIFIED FISH OIL) 1 GM CAP PO SCH (08:32)
[2020-11-07] MEDS: FERROUS SULFATE 325 MG TAB PO SCH ×2 (08:32→16:57)
[2020-11-07] MEDS: GABAPENTIN 400 MG CAP PO SCH ×3 (08:33→21:34)
[2020-11-07] MEDS: QUEtiapine FUMARATE 200 MG TAB PO SCH ×2 (08:34→21:34)
[2020-11-07] MEDS: SULFAMETHOXAZOLE/TRIMETHOPRIM DS 800/160MG TAB PO SCH ×2 (08:34→21:34)
[2020-11-07] MEDS: IPRATROPIUM BROMIDE NASAL SPRAY 0.06% 15ML SCH ×2 (08:34→21:34)
[2020-11-07] MEDS: UMECLIDINIUM BROMIDE 62.5MCG/BLISTER 7 PUFFS/INHALER INH SCH (08:39)
[2020-11-07] MEDS: clonazePAM 0.5 MG TAB PO SCH (16:58)
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
[2020-11-07] MEDS: SIMVASTATIN 40 MG TAB PO SCH (21:33)
[2020-11-07] MEDS: traZODone HCL 100 MG TAB PO SCH (21:33)
[2020-11-08] MEDS: LEVOTHYROXINE SODIUM 88 MCG TABLET PO SCH (08:01)
[2020-11-08] MEDS: OMEGA-3 (PURIFIED FISH OIL) 1 GM CAP PO SCH (08:02)
[2020-11-08] MEDS: FERROUS SULFATE 325 MG TAB PO SCH ×2 (08:02→17:51)
[2020-11-08] MEDS: dilTIAZem HCL 180 MG CAPCR PO SCH (08:02)
[2020-11-08] MEDS: APIXABAN 5 MG TABLET PO SCH ×2 (08:02→20:38)
[2020-11-08] MEDS: ASPIRIN 81 MG ECTAB PO SCH (08:02)
[2020-11-08] MEDS: DOCUSATE SODIUM 100 MG CAP PO SCH ×2 (08:02→20:38)
[2020-11-08] MEDS: GABAPENTIN 400 MG CAP PO SCH ×3 (08:02→20:38)
[2020-11-08] MEDS: SULFAMETHOXAZOLE/TRIMETHOPRIM DS 800/160MG TAB PO SCH ×2 (08:03→20:38)
[2020-11-08] MEDS: IPRATROPIUM BROMIDE NASAL SPRAY 0.06% 15ML SCH ×2 (08:03→20:38)
[2020-11-08] MEDS: QUEtiapine FUMARATE 200 MG TAB PO SCH ×2 (08:03→20:38)
[2020-11-08] MEDS: PSYLLIUM 58.6% POWDER PACKET PO SCH (08:03)
[2020-11-08] MEDS: UMECLIDINIUM BROMIDE 62.5MCG/BLISTER 7 PUFFS/INHALER INH SCH (08:03)
--- NOTE | 2020-11-08 13:39 | Psychiatric Progress Note ---
Date of Service November 08, 2020 Impression / Recommendations Impression DEANDRE THOMPSON is a 60-year-old F, well known to due to recent admissions, has a history of schizoaffective disorder and a flutter s/p ablation, and was admitted on 10/22/20 01:04 on a 201 voluntary commitment s/p OD and disruptive behavior at [facility]. She was maintained on an outpatient commitment which has been converted to inpatient. Her AMS appears to be resolving but she remains reactive, intrussive, irritable due to paranoia. She is unable to care for herself outside of the hospital and is being referred to [facility]. 11/08/20--reviewed. pursuing possible diversion to [facility]. continue current meds and treatment plan. Inventory Assets Strengths: family oriented, accepting of services (compared to initial presentation) Needs: housing Risk Factors Assessment Male: No : Yes Do You Have Access To A Gun?: No Health Problems: Yes Mental Health Diagnoses: Yes Substance Use Disorders: No Previous Attempt: Yes Previous Psychiatric Hospitalization: Yes Protective Factors Assessment Scientology Beliefs: Yes : No Responsible for Young Children: No Employed: No Interval History Chief Complaint "I just get anxious sometimes". Review of Systems Sleep Information Total Hours of Sleep: 6.5 Sleep Comments: pt given trazodone per rn. pt on q-15 minute checks. pt on q- 14 minute checks Meal Information Percent Meal Consumed - Breakfast: 75 Percent Meal Consumed - Lunch: 100 Percent Meal Consumed - Dinner: 100 Nutrition Comment: per meal record Subjective Subjective Patient was seen & assessed and interval progress reviewed with treatment team. Cooperative with diversion meeting yesterday. No complaints today. Continues to attempt to fauzia unit items and did take food from a peer. Physical Exam Psychiatric Orientation: alert Apperance: appropriately groomed Eye Contact: + fair eye contact Motor Behavior: no abnormal motor movements Speech: normal rate/rhythm/volume of speech Affect: + anxious affect Mood: + anxious mood Thought Process: + concrete thought process Thought Content: + paranoid Suicidal Thoughts: denies suicidal thoughts Homicidal Thoughts: denies homicidal thoughts Hallucinations: no auditory hallucinations and no visual hallucinations Cognition: attention grossly intact Estimated Intelligence: consistent with education level Insight: + poor insight Judgement: + poor judgement Vital Signs (Past 24 Hours) Last Vital Signs Temp 36.7 C 11/08/20 06:42 Pulse 99 H 11/08/20 06:43 Resp 16 11/08/20 06:42 BP 114/77 11/08/20 06:43 Pulse Ox 99 10/28/20 20:46 Results & Data ([facility]) Current Inpatient Medications Current Inpatient Medications: Current Inpatient Medications Acetaminophen (Acetaminophen 325 Mg Tab) 650 mg PO Q4H PRN PRN Reason: Headache or Minor Fever Stop: 11/21/20 01:14 Last Admin: 10/31/20 05:43 Dose: 650 mg Documented by: Al Hydrox/Mg Hydrox/Simethicone (Aluminum/Magnesium Susp 30 Ml Udc) 30 ml PO Q4H PRN PRN Reason: GI Upset Stop: 11/21/20 01:14 Albuterol (Albuterol Hfa 8 Gm Inhaler) 2 puffs INH QID PRN; Protocol PRN Reason: shortness of breath or wheezing or cough Stop: 11/21/20 08:30 Apixaban (Apixaban 5 Mg Tablet) 5 mg PO BID [facility] Stop: 11/21/20 08:59 Last Admin: 11/08/20 08:02 Dose: 5 mg Documented by: Aspirin (Aspirin 81 Mg Ectab) 81 mg PO DAILY [facility] Stop: 11/21/20 08:59 Last Admin: 11/08/20 08:02 Dose: 81 mg Documented by: Clonazepam (Clonazepam 0.5 Mg Tab) 0.5 mg PO BID PRN PRN Reason: Anxiety Stop: 11/24/20 11:58 Clonazepam (Clonazepam 0.5 Mg Tab) 0.5 mg PO DAILYBD [facility] Stop: 11/24/20 17:14 Last Admin: 11/07/20 16:58 Dose: 0.5 mg Documented by: Diltiazem HCl (Diltiazem Hcl 180 Mg Capcr) 180 mg PO QAM [facility] Stop: 11/21/20 08:59 Last Admin: 11/08/20 08:02 Dose: 180 mg Documented by: Docusate Sodium (Docusate Sodium 100 Mg Cap) 100 mg PO BID [facility] Stop: 11/23/20 11:59 Last Admin: 11/08/20 08:02 Dose: 100 mg Documented by: Ferrous Sulfate (Ferrous Sulfate 325 Mg Tab) 325 mg PO BIDM [facility] Stop: 11/27/20 18:24 Last Admin: 11/08/20 08:02 Dose: 325 mg Documented by: Fish Oil ([place]-3 (Purified Fish Oil) 1 Gm Cap) 1 gm PO DAILY [facility] Stop: 11/21/20 09:44 Last Admin: 11/08/20 08:02 Dose: 1 gm Documented by: Gabapentin (Gabapentin 400 Mg Cap) 400 mg PO TID [facility] Stop: 11/21/20 08:59 Last Admin: 11/08/20 08:02 Dose: 400 mg Documented by: Ipratropium [place] (Ipratropium [place] Nasal [place] 0.06% 15ml) 2 sprays NA BID [facility] Stop: 11/21/20 08:59 Last Admin: 11/08/20 08:03 Dose: Not Given Documented by: Levothyroxine Sodium (Levothyroxine Sodium 88 Mcg Tablet) 88 mcg PO DAILYBB [facility] Stop: 11/22/20 07:59 Last Admin: 11/08/20 08:01 Dose: 88 mcg Documented by: Magnesium Hydroxide (Magnesium Hydroxide Susp 30 Ml Udc) 30 ml PO DAILY PRN PRN Reason: Constipation Stop: 11/21/20 01:14 Psyllium Hydrophilic Mucilloid (Psyllium 58.6% Powder Packet) 1 pkt PO QAM [facility] Stop: 11/26/20 08:59 Last Admin: 11/08/20 08:03 Dose: 1 pkt Documented by: Quetiapine Fumarate (Quetiapine Fumarate 200 Mg Tab) 200 mg PO DAILY [facility] Stop: 11/21/20 09:59 Last Admin: 11/08/20 08:03 Dose: 200 mg Documented by: Quetiapine Fumarate (Quetiapine Fumarate 200 Mg Tab) 400 mg PO HS [facility] Stop: 11/21/20 21:59 Last Admin: 11/07/20 21:34 Dose: 400 mg Documented by: Quetiapine Fumarate (Quetiapine Fumarate 100 Mg Tablet) 100 mg PO Q6 PRN PRN Reason: Anxiety/Agitation Stop: 11/21/20 17:59 Last Admin: 10/22/20 17:24 Dose: 100 mg Documented by: Simvastatin (Simvastatin 40 Mg Tab) 40 mg PO HS [facility] Stop: 11/21/20 21:59 Last Admin: 11/07/20 21:33 Dose: 40 mg Documented by: Sodium Chloride (Sodium Chloride 0.65% Na Soln 45 Ml ([place])) 1 - 2 sprays NA PRN PRN PRN Reason: Nasal Dryness/Congestion Stop: 11/21/20 01:14 Trazodone HCl (Trazodone Hcl 100 Mg Tab) 100 mg PO HS [facility] Stop: 11/21/20 21:59 Last Admin: 11/07/20 21:33 Dose: 100 mg Documented by: Trimethoprim/Sulfamethoxazole (Sulfamethoxazole/Trimethoprim Ds 800/160mg Tab) 1 tab PO Q12 [facility] Stop: 11/21/20 08:59 Last Admin: 11/08/20 08:03 Dose: 1 tab Documented by: Umeclidinium [place] (Umeclidinium [place] 62.5mcg/Blister 7 Puffs/Inhaler) 1 puffs INH DAILY [facility]; Protocol Stop: 11/21/20 09:44 Last Admin: 11/08/20 08:03 Dose: Not Given Documented by: Mental Health & Subst Abuse Tx Psychiatrist Name of Psychiatrist: Velvet Sanchez Psychiatrist's Psychiatric Appointment Comment: [address] [place] [address] Quick Mixer Operator Name of Quick Mixer Operator: [employer] [place] Phone Number for Quick Mixer Operator: [phone] Post Discharge Appointments Primary Care Physician Name Of Family Doctor: MAN - Dr. Lancaster (May, BENJAC) Primary Care Provider Appointment Comment: [address] [place] [address] Corey Paredes Specialist Name of Specialist: MAN Cardiology - Dr. Ga Villareal Phone Number for Specialist: [phone] Specialty Appointment Comment: [address] [facility], [address], [place] Contact Information Discharge
[2020-11-08] MEDS: clonazePAM 0.5 MG TAB PO SCH (17:51)
[2020-11-08] MEDS: SIMVASTATIN 40 MG TAB PO SCH (20:38)
[2020-11-08] MEDS: traZODone HCL 100 MG TAB PO SCH (20:38)
[2020-11-09] MEDS: LEVOTHYROXINE SODIUM 88 MCG TABLET PO SCH (08:25)
[2020-11-09] MEDS: APIXABAN 5 MG TABLET PO SCH ×2 (08:25→21:11)
[2020-11-09] MEDS: ASPIRIN 81 MG ECTAB PO SCH (08:26)
[2020-11-09] MEDS: dilTIAZem HCL 180 MG CAPCR PO SCH (08:26)
[2020-11-09] MEDS: DOCUSATE SODIUM 100 MG CAP PO SCH ×2 (08:26→21:12)
[2020-11-09] MEDS: OMEGA-3 (PURIFIED FISH OIL) 1 GM CAP PO SCH (08:27)
[2020-11-09] MEDS: GABAPENTIN 400 MG CAP PO SCH ×3 (08:27→21:13)
[2020-11-09] MEDS: SULFAMETHOXAZOLE/TRIMETHOPRIM DS 800/160MG TAB PO SCH ×2 (08:27→21:12)
[2020-11-09] MEDS: FERROUS SULFATE 325 MG TAB PO SCH ×2 (08:27→17:36)
[2020-11-09] MEDS: IPRATROPIUM BROMIDE NASAL SPRAY 0.06% 15ML SCH ×2 (08:28→21:14)
[2020-11-09] MEDS: PSYLLIUM 58.6% POWDER PACKET PO SCH (08:28)
[2020-11-09] MEDS: UMECLIDINIUM BROMIDE 62.5MCG/BLISTER 7 PUFFS/INHALER INH SCH (08:28)
[2020-11-09] MEDS: QUEtiapine FUMARATE 200 MG TAB PO SCH ×2 (08:28→21:13)
--- NOTE | 2020-11-09 09:42 | Psychiatric Progress Note ---
Date of Service November 09, 2020 Impression / Recommendations Impression DEANDRE THOMPSON is a 60-year-old F, well known to due to recent admissions, has a history of schizoaffective disorder and a flutter s/p ablation, and was admitted on 10/22/20 01:04 on a 201 voluntary commitment s/p OD and disruptive behavior at [facility]. She was maintained on an outpatient commitment which has been converted to inpatient. Her AMS appears to be resolving but she remains reactive, intrussive, irritable due to paranoia. She is unable to care for herself outside of the hospital and is being referred to [facility]. 11/09/20--continue current meds and treatment plan. Inventory Assets Strengths: family oriented, accepting of services (compared to initial presentation) Needs: housing Risk Factors Assessment Male: No : Yes Do You Have Access To A Gun?: No Health Problems: Yes Mental Health Diagnoses: Yes Substance Use Disorders: No Previous Attempt: Yes Previous Psychiatric Hospitalization: Yes Protective Factors Assessment Uatsdin Beliefs: Yes : No Responsible for Young Children: No Employed: No Interval History Chief Complaint "I'm pretty good today". Review of Systems Sleep Information Total Hours of Sleep: 7 Meal Information Percent Meal Consumed - Breakfast: 100 Percent Meal Consumed - Lunch: 100 Percent Meal Consumed - Dinner: 100 Nutrition Comment: per meal record Subjective Subjective Patient was seen & assessed and interval progress reviewed with nursing and social work. No new issues overnight. Tolerating medications. States she experiences tachy less often and correctly attributes it to anxiety. Physical Exam Psychiatric Orientation: alert Apperance: appropriately groomed Eye Contact: + fair eye contact Motor Behavior: no abnormal motor movements Speech: normal rate/rhythm/volume of speech Affect: euthymic affect Mood: + anxious mood Thought Process: + concrete thought process Thought Content: + paranoid Suicidal Thoughts: denies suicidal thoughts Homicidal Thoughts: denies homicidal thoughts Hallucinations: no auditory hallucinations and no visual hallucinations Cognition: attention grossly intact Estimated Intelligence: consistent with education level Insight: + poor insight (but improving) Judgement: + poor judgement Vital Signs (Past 24 Hours) Last Vital Signs Temp 36.7 C 11/09/20 06:34 Pulse 97 H 11/09/20 06:35 Resp 18 11/09/20 06:34 BP 117/70 11/09/20 06:35 Pulse Ox 99 10/28/20 20:46 Results & Data ([facility]) Current Inpatient Medications Current Inpatient Medications: Current Inpatient Medications Acetaminophen (Acetaminophen 325 Mg Tab) 650 mg PO Q4H PRN PRN Reason: Headache or Minor Fever Stop: 11/21/20 01:14 Last Admin: 10/31/20 05:43 Dose: 650 mg Documented by: Al Hydrox/Mg Hydrox/Simethicone (Aluminum/Magnesium Susp 30 Ml Udc) 30 ml PO Q4H PRN PRN Reason: GI Upset Stop: 11/21/20 01:14 Albuterol (Albuterol Hfa 8 Gm Inhaler) 2 puffs INH QID PRN; Protocol PRN Reason: shortness of breath or wheezing or cough Stop: 11/21/20 08:30 Apixaban (Apixaban 5 Mg Tablet) 5 mg PO BID [facility] Stop: 11/21/20 08:59 Last Admin: 11/09/20 08:25 Dose: 5 mg Documented by: Aspirin (Aspirin 81 Mg Ectab) 81 mg PO DAILY [facility] Stop: 11/21/20 08:59 Last Admin: 11/09/20 08:26 Dose: 81 mg Documented by: Clonazepam (Clonazepam 0.5 Mg Tab) 0.5 mg PO BID PRN PRN Reason: Anxiety Stop: 11/24/20 11:58 Clonazepam (Clonazepam 0.5 Mg Tab) 0.5 mg PO DAILYBD [facility] Stop: 11/24/20 17:14 Last Admin: 11/08/20 17:51 Dose: 0.5 mg Documented by: Diltiazem HCl (Diltiazem Hcl 180 Mg Capcr) 180 mg PO QAM [facility] Stop: 11/21/20 08:59 Last Admin: 11/09/20 08:26 Dose: 180 mg Documented by: Docusate Sodium (Docusate Sodium 100 Mg Cap) 100 mg PO BID [facility] Stop: 11/23/20 11:59 Last Admin: 11/09/20 08:26 Dose: 100 mg Documented by: Ferrous Sulfate (Ferrous Sulfate 325 Mg Tab) 325 mg PO BIDM [facility] Stop: 11/27/20 18:24 Last Admin: 11/09/20 08:27 Dose: 325 mg Documented by: Fish Oil ([place]-3 (Purified Fish Oil) 1 Gm Cap) 1 gm PO DAILY [facility] Stop: 11/21/20 09:44 Last Admin: 11/09/20 08:27 Dose: 1 gm Documented by: Gabapentin (Gabapentin 400 Mg Cap) 400 mg PO TID [facility] Stop: 11/21/20 08:59 Last Admin: 11/09/20 08:27 Dose: 400 mg Documented by: Ipratropium [place] (Ipratropium [place] Nasal [place] 0.06% 15ml) 2 sprays NA BID [facility] Stop: 11/21/20 08:59 Last Admin: 11/09/20 08:28 Dose: Not Given Documented by: Levothyroxine Sodium (Levothyroxine Sodium 88 Mcg Tablet) 88 mcg PO DAILYBB [facility] Stop: 11/22/20 07:59 Last Admin: 11/09/20 08:25 Dose: 88 mcg Documented by: Magnesium Hydroxide (Magnesium Hydroxide Susp 30 Ml Udc) 30 ml PO DAILY PRN PRN Reason: Constipation Stop: 11/21/20 01:14 Psyllium Hydrophilic Mucilloid (Psyllium 58.6% Powder Packet) 1 pkt PO QAM [facility] Stop: 11/26/20 08:59 Last Admin: 11/09/20 08:28 Dose: 1 pkt Documented by: Quetiapine Fumarate (Quetiapine Fumarate 200 Mg Tab) 200 mg PO DAILY [facility] Stop: 11/21/20 09:59 Last Admin: 11/09/20 08:28 Dose: 200 mg Documented by: Quetiapine Fumarate (Quetiapine Fumarate 200 Mg Tab) 400 mg PO HS [facility] Stop: 11/21/20 21:59 Last Admin: 11/08/20 20:38 Dose: 400 mg Documented by: Quetiapine Fumarate (Quetiapine Fumarate 100 Mg Tablet) 100 mg PO Q6 PRN PRN Reason: Anxiety/Agitation Stop: 11/21/20 17:59 Last Admin: 10/22/20 17:24 Dose: 100 mg Documented by: Simvastatin (Simvastatin 40 Mg Tab) 40 mg PO HS [facility] Stop: 11/21/20 21:59 Last Admin: 11/08/20 20:38 Dose: 40 mg Documented by: Sodium Chloride (Sodium Chloride 0.65% Na Soln 45 Ml ([place])) 1 - 2 sprays NA PRN PRN PRN Reason: Nasal Dryness/Congestion Stop: 11/21/20 01:14 Trazodone HCl (Trazodone Hcl 100 Mg Tab) 100 mg PO [facility] Stop: 11/21/20 21:59 Last Admin: 11/08/20 20:38 Dose: 100 mg Documented by: Trimethoprim/Sulfamethoxazole (Sulfamethoxazole/Trimethoprim Ds 800/160mg Tab) 1 tab PO Q12 [facility] Stop: 11/21/20 08:59 Last Admin: 11/09/20 08:27 Dose: 1 tab Documented by: Umeclidinium [place] (Umeclidinium [place] 62.5mcg/Blister 7 Puffs/Inhaler) 1 puffs INH DAILY [facility]; Protocol Stop: 11/21/20 09:44 Last Admin: 11/09/20 08:28 Dose: Not Given Documented by: Mental Health & Subst Abuse Tx Psychiatrist Name of Psychiatrist: Velvet Sanchez Psychiatrist's Psychiatric Appointment Comment: [id number] [facility] Dye Weigher Name of Dye Weigher: [facility] Phone Number for Dye Weigher: [phone] Post Discharge Appointments Primary Care Physician Name Of Family Doctor: MAN Lancaster (JADEN Olvera) Primary Care Provider Appointment Comment: [address] [place] [address] Corey Paredes Specialist Name of Specialist: MAN Cardiology - Dr. Ga Villareal Phone Number for Specialist: [phone] Specialty Appointment Comment: [address] [facility], [address], [place] Contact Information Discharge
[2020-11-09] MEDS: clonazePAM 0.5 MG TAB PO SCH (17:35)
[2020-11-09] MEDS: traZODone HCL 100 MG TAB PO SCH (21:13)
[2020-11-09] MEDS: SIMVASTATIN 40 MG TAB PO SCH (21:13)
[2020-11-10] MEDS: LEVOTHYROXINE SODIUM 88 MCG TABLET PO SCH (07:16)
[2020-11-10] MEDS: ASPIRIN 81 MG ECTAB PO SCH (09:37)
[2020-11-10] MEDS: APIXABAN 5 MG TABLET PO SCH ×2 (09:37→20:41)
[2020-11-10] MEDS: FERROUS SULFATE 325 MG TAB PO SCH ×2 (09:38→17:20)
[2020-11-10] MEDS: DOCUSATE SODIUM 100 MG CAP PO SCH ×2 (09:38→20:42)
[2020-11-10] MEDS: GABAPENTIN 400 MG CAP PO SCH ×3 (09:38→20:43)
[2020-11-10] MEDS: OMEGA-3 (PURIFIED FISH OIL) 1 GM CAP PO SCH (09:38)
[2020-11-10] MEDS: QUEtiapine FUMARATE 200 MG TAB PO SCH ×2 (09:38→20:43)
[2020-11-10] MEDS: dilTIAZem HCL 180 MG CAPCR PO SCH (09:38)
[2020-11-10] MEDS: SULFAMETHOXAZOLE/TRIMETHOPRIM DS 800/160MG TAB PO SCH ×2 (09:38→20:42)
[2020-11-10] MEDS: PSYLLIUM 58.6% POWDER PACKET PO SCH (09:38)
[2020-11-10] MEDS: IPRATROPIUM BROMIDE NASAL SPRAY 0.06% 15ML SCH ×2 (09:43→20:44)
[2020-11-10] MEDS: UMECLIDINIUM BROMIDE 62.5MCG/BLISTER 7 PUFFS/INHALER INH SCH (09:44)
--- NOTE | 2020-11-10 10:06 | Psychiatric Progress Note ---
Date of Service November 10, 2020 Impression / Recommendations Impression DEANDRE THOMPSON is a 60-year-old F, well known to due to recent admissions, has a history of schizoaffective disorder and a flutter s/p ablation, and was admitted on 10/22/20 01:04 on a 201 voluntary commitment s/p OD and disruptive behavior at [facility]. She was maintained on an outpatient commitment which has been converted to inpatient. Her AMS appears to be resolving but she remains reactive, intrussive, irritable due to paranoia. She is unable to care for herself outside of the hospital and is being referred to [facility]. 11/10/20--continue current meds and treatment plan. Inventory Assets Strengths: family oriented, accepting of services (compared to initial presentation) Needs: housing Risk Factors Assessment Male: No : Yes Do You Have Access To A Gun?: No Health Problems: Yes Mental Health Diagnoses: Yes Substance Use Disorders: No Previous Attempt: Yes Previous Psychiatric Hospitalization: Yes Protective Factors Assessment Scientologist Beliefs: Yes : No Responsible for Young Children: No Employed: No Interval History Chief Complaint "I'm pretty good really". Review of Systems Sleep Information Total Hours of Sleep: 6.5 Meal Information Percent Meal Consumed - Breakfast: 75 Percent Meal Consumed - Lunch: 100 Percent Meal Consumed - Dinner: 100 Nutrition Comment: per meal record Subjective Subjective Patient was seen & assessed and interval progress reviewed with nursing and social work. No acute issues overnight. Cooperative with meds. Appropriate interactions with patients. Somewhat paranoid this am as upset by overhearing a peer talk about the peer's suicidal gesture on the phone. Also, did not have light on in bathroom and relocation director attempted to enter. Physical Exam Psychiatric Orientation: alert Apperance: appropriately groomed Eye Contact: + fair eye contact Motor Behavior: no abnormal motor movements Speech: normal rate/rhythm/volume of speech Affect: + depressed affect Mood: + anxious mood Thought Process: + concrete thought process Thought Content: + paranoid Suicidal Thoughts: denies suicidal thoughts Homicidal Thoughts: denies homicidal thoughts Hallucinations: no auditory hallucinations and no visual hallucinations Cognition: attention grossly intact Estimated Intelligence: consistent with education level Insight: + poor insight Judgement: + poor judgement Vital Signs (Past 24 Hours) Last Vital Signs Temp 36.1 C L 11/09/20 20:00 Pulse 105 H 11/10/20 06:35 Resp 18 11/10/20 06:35 BP 115/70 11/10/20 06:35 Pulse Ox 99 10/28/20 20:46 Results & Data ([facility]) Current Inpatient Medications Current Inpatient Medications: Current Inpatient Medications Acetaminophen (Acetaminophen 325 Mg Tab) 650 mg PO Q4H PRN PRN Reason: Headache or Minor Fever Stop: 11/21/20 01:14 Last Admin: 10/31/20 05:43 Dose: 650 mg Documented by: Al Hydrox/Mg Hydrox/Simethicone (Aluminum/Magnesium Susp 30 Ml Udc) 30 ml PO Q4H PRN PRN Reason: GI Upset Stop: 11/21/20 01:14 Albuterol (Albuterol Hfa 8 Gm Inhaler) 2 puffs INH QID PRN; Protocol PRN Reason: shortness of breath or wheezing or cough Stop: 11/21/20 08:30 Apixaban (Apixaban 5 Mg Tablet) 5 mg PO BID [facility] Stop: 11/21/20 08:59 Last Admin: 11/10/20 09:37 Dose: 5 mg Documented by: Aspirin (Aspirin 81 Mg Ectab) 81 mg PO DAILY [facility] Stop: 11/21/20 08:59 Last Admin: 11/10/20 09:37 Dose: 81 mg Documented by: Clonazepam (Clonazepam 0.5 Mg Tab) 0.5 mg PO BID PRN PRN Reason: Anxiety Stop: 11/24/20 11:58 Clonazepam (Clonazepam 0.5 Mg Tab) 0.5 mg PO DAILYBD [facility] Stop: 11/24/20 17:14 Last Admin: 11/09/20 17:35 Dose: 0.5 mg Documented by: Diltiazem HCl (Diltiazem Hcl 180 Mg Capcr) 180 mg PO QAM [facility] Stop: 11/21/20 08:59 Last Admin: 11/10/20 09:38 Dose: 180 mg Documented by: Docusate Sodium (Docusate Sodium 100 Mg Cap) 100 mg PO BID [facility] Stop: 11/23/20 11:59 Last Admin: 11/10/20 09:38 Dose: 100 mg Documented by: Ferrous Sulfate (Ferrous Sulfate 325 Mg Tab) 325 mg PO BIDM [facility] Stop: 11/27/20 18:24 Last Admin: 11/10/20 09:38 Dose: 325 mg Documented by: Fish Oil ([place]-3 (Purified Fish Oil) 1 Gm Cap) 1 gm PO DAILY [facility] Stop: 11/21/20 09:44 Last Admin: 11/10/20 09:38 Dose: 1 gm Documented by: Gabapentin (Gabapentin 400 Mg Cap) 400 mg PO TID [facility] Stop: 11/21/20 08:59 Last Admin: 11/10/20 09:38 Dose: 400 mg Documented by: Ipratropium [place] (Ipratropium [place] Nasal [place] 0.06% 15ml) 2 sprays NA BID [facility] Stop: 11/21/20 08:59 Last Admin: 11/10/20 09:43 Dose: Not Given Documented by: Levothyroxine Sodium (Levothyroxine Sodium 88 Mcg Tablet) 88 mcg PO DAILYBB [facility] Stop: 11/22/20 07:59 Last Admin: 11/10/20 07:16 Dose: 88 mcg Documented by: Magnesium Hydroxide (Magnesium Hydroxide Susp 30 Ml Udc) 30 ml PO DAILY PRN PRN Reason: Constipation Stop: 11/21/20 01:14 Psyllium Hydrophilic Mucilloid (Psyllium 58.6% Powder Packet) 1 pkt PO QAM [facility] Stop: 11/26/20 08:59 Last Admin: 11/10/20 09:38 Dose: 1 pkt Documented by: Quetiapine Fumarate (Quetiapine Fumarate 200 Mg Tab) 200 mg PO DAILY [facility] Stop: 11/21/20 09:59 Last Admin: 11/10/20 09:38 Dose: 200 mg Documented by: Quetiapine Fumarate (Quetiapine Fumarate 200 Mg Tab) 400 mg PO HS [facility] Stop: 11/21/20 21:59 Last Admin: 11/09/20 21:13 Dose: 400 mg Documented by: Quetiapine Fumarate (Quetiapine Fumarate 100 Mg Tablet) 100 mg PO Q6 PRN PRN Reason: Anxiety/Agitation Stop: 11/21/20 17:59 Last Admin: 10/22/20 17:24 Dose: 100 mg Documented by: Simvastatin (Simvastatin 40 Mg Tab) 40 mg PO HS [facility] Stop: 11/21/20 21:59 Last Admin: 11/09/20 21:13 Dose: 40 mg Documented by: Sodium Chloride (Sodium Chloride 0.65% Na Soln 45 Ml ([place])) 1 - 2 sprays NA PRN PRN PRN Reason: Nasal Dryness/Congestion Stop: 11/21/20 01:14 Trazodone HCl (Trazodone Hcl 100 Mg Tab) 100 mg PO HS [facility] Stop: 11/21/20 21:59 Last Admin: 11/09/20 21:13 Dose: 100 mg Documented by: Trimethoprim/Sulfamethoxazole (Sulfamethoxazole/Trimethoprim Ds 800/160mg Tab) 1 tab PO Q12 [facility] Stop: 11/21/20 08:59 Last Admin: 11/10/20 09:38 Dose: 1 tab Documented by: Umeclidinium [place] (Umeclidinium [place] 62.5mcg/Blister 7 Puffs/Inhaler) 1 puffs INH DAILY [facility]; Protocol Stop: 11/21/20 09:44 Last Admin: 11/10/20 09:44 Dose: Not Given Documented by: Mental Health & Subst Abuse Tx Psychiatrist Name of Psychiatrist: Velvet Sanchez Psychiatrist's Psychiatric Appointment Comment: [address] [facility] Pier Master Name of Pier Master: [facility] [place] Phone Number for Pier Master: [phone] Post Discharge Appointments Primary Care Physician Name Of Family Doctor: MAN - Dr. Lancaster (BENJA OlveraC) Primary Care Provider Appointment Comment: [address] [place] [address] Corey Paredes Specialist Name of Specialist: MAN Cardiology - Dr. Ga Villareal Phone Number for Specialist: [phone] Specialty Appointment Comment: [address] [facility], [address], [place] Contact Information Discharge
[2020-11-10] MEDS: clonazePAM 0.5 MG TAB PO SCH (17:20)
[2020-11-10] MEDS: traZODone HCL 100 MG TAB PO SCH (20:42)
[2020-11-10] MEDS: SIMVASTATIN 40 MG TAB PO SCH (20:43)
[2020-11-11] MEDS: LEVOTHYROXINE SODIUM 88 MCG TABLET PO SCH (07:28)
[2020-11-11] MEDS: dilTIAZem HCL 180 MG CAPCR PO SCH (08:13)
[2020-11-11] MEDS: DOCUSATE SODIUM 100 MG CAP PO SCH ×2 (08:13→21:00)
[2020-11-11] MEDS: APIXABAN 5 MG TABLET PO SCH ×2 (08:13→21:00)
[2020-11-11] MEDS: ASPIRIN 81 MG ECTAB PO SCH (08:13)
[2020-11-11] MEDS: GABAPENTIN 400 MG CAP PO SCH ×3 (08:14→21:00)
[2020-11-11] MEDS: FERROUS SULFATE 325 MG TAB PO SCH ×2 (08:14→17:10)
[2020-11-11] MEDS: SULFAMETHOXAZOLE/TRIMETHOPRIM DS 800/160MG TAB PO SCH ×2 (08:14→21:00)
[2020-11-11] MEDS: PSYLLIUM 58.6% POWDER PACKET PO SCH (08:14)
[2020-11-11] MEDS: IPRATROPIUM BROMIDE NASAL SPRAY 0.06% 15ML SCH ×2 (08:14→21:01)
[2020-11-11] MEDS: OMEGA-3 (PURIFIED FISH OIL) 1 GM CAP PO SCH (08:14)
[2020-11-11] MEDS: QUEtiapine FUMARATE 200 MG TAB PO SCH ×2 (08:14→21:01)
[2020-11-11] MEDS: UMECLIDINIUM BROMIDE 62.5MCG/BLISTER 7 PUFFS/INHALER INH SCH (08:15)
--- NOTE | 2020-11-11 09:49 | Psychiatric Progress Note ---
Date of Service November 11, 2020 Impression / Recommendations Impression DEANDRE THOMPSON is a 60-year-old F, well known to due to recent admissions, has a history of schizoaffective disorder and a flutter s/p ablation, and was admitted on 10/22/20 01:04 on a 201 voluntary commitment s/p OD and disruptive behavior at [facility]. She was maintained on an outpatient commitment which has been converted to inpatient. Her AMS appears to be resolving but she remains reactive, intrussive, irritable due to paranoia. She is unable to care for herself outside of the hospital and is being referred to [facility]. 11/11/20--unchanged, more resistant to treatment planning today. Plan: continue current meds and treatment plan. Request 305. Inventory Assets Strengths: family oriented, accepting of services (compared to initial presentation) Needs: housing Risk Factors Assessment Male: No : Yes Do You Have Access To A Gun?: No Health Problems: Yes Mental Health Diagnoses: Yes Substance Use Disorders: No Previous Attempt: Yes Previous Psychiatric Hospitalization: Yes Protective Factors Assessment Advent Beliefs: Yes : No Responsible for Young Children: No Employed: No Interval History Chief Complaint "yeah I don't agree with all of this". Review of Systems Sleep Information Total Hours of Sleep: 7.5 Meal Information Percent Meal Consumed - Breakfast: 100 Percent Meal Consumed - Lunch: 100 Percent Meal Consumed - Dinner: 100 Nutrition Comment: per meal record Subjective Subjective Patient was seen & assessed and interval progress reviewed with treatment team. Patient now states she is unsure she would agree to [facility] as possible diversion option and wants to contest her 304 to "go home" though no longer has her apartment and can't live with boyfriend. Harder to engage 1-on-1 today. Physical Exam Psychiatric Orientation: alert Apperance: appropriately groomed Eye Contact: + poor eye contact Motor Behavior: no abnormal motor movements Speech: + abnormal rate/rhythm/volume of speech non-spontaneous Affect: + blunted affect Mood: + anxious mood Thought Process: + concrete thought process Thought Content: + paranoid Suicidal Thoughts: denies suicidal thoughts Homicidal Thoughts: denies homicidal thoughts Hallucinations: no auditory hallucinations and no visual hallucinations Vital Signs (Past 24 Hours) Last Vital Signs Temp 36.7 C 11/11/20 06:30 Pulse 101 H 11/11/20 06:32 Resp 16 11/11/20 06:30 BP 108/67 11/11/20 06:32 Pulse Ox 97 11/10/20 18:58 Results & Data ([facility]) Current Inpatient Medications Current Inpatient Medications: Current Inpatient Medications Acetaminophen (Acetaminophen 325 Mg Tab) 650 mg PO Q4H PRN PRN Reason: Headache or Minor Fever Stop: 11/21/20 01:14 Last Admin: 10/31/20 05:43 Dose: 650 mg Documented by: Al Hydrox/Mg Hydrox/Simethicone (Aluminum/Magnesium Susp 30 Ml Udc) 30 ml PO Q4H PRN PRN Reason: GI Upset Stop: 11/21/20 01:14 Albuterol (Albuterol Hfa 8 Gm Inhaler) 2 puffs INH QID PRN; Protocol PRN Reason: shortness of breath or wheezing or cough Stop: 11/21/20 08:30 Apixaban (Apixaban 5 Mg Tablet) 5 mg PO BID [facility] Stop: 11/21/20 08:59 Last Admin: 11/11/20 08:13 Dose: 5 mg Documented by: Aspirin (Aspirin 81 Mg Ectab) 81 mg PO DAILY [facility] Stop: 11/21/20 08:59 Last Admin: 11/11/20 08:13 Dose: 81 mg Documented by: Clonazepam (Clonazepam 0.5 Mg Tab) 0.5 mg PO BID PRN PRN Reason: Anxiety Stop: 11/24/20 11:58 Clonazepam (Clonazepam 0.5 Mg Tab) 0.5 mg PO DAILYBD [facility] Stop: 11/24/20 17:14 Last Admin: 11/10/20 17:20 Dose: 0.5 mg Documented by: Diltiazem HCl (Diltiazem Hcl 180 Mg Capcr) 180 mg PO QAM [facility] Stop: 11/21/20 08:59 Last Admin: 11/11/20 08:13 Dose: 180 mg Documented by: Docusate Sodium (Docusate Sodium 100 Mg Cap) 100 mg PO BID [facility] Stop: 11/23/20 11:59 Last Admin: 11/11/20 08:13 Dose: 100 mg Documented by: Ferrous Sulfate (Ferrous Sulfate 325 Mg Tab) 325 mg PO BIDM [facility] Stop: 11/27/20 18:24 Last Admin: 11/11/20 08:14 Dose: 325 mg Documented by: Fish Oil ([place]-3 (Purified Fish Oil) 1 Gm Cap) 1 gm PO DAILY [facility] Stop: 11/21/20 09:44 Last Admin: 11/11/20 08:14 Dose: 1 gm Documented by: Gabapentin (Gabapentin 400 Mg Cap) 400 mg PO TID [facility] Stop: 11/21/20 08:59 Last Admin: 11/11/20 08:14 Dose: 400 mg Documented by: Ipratropium [place] (Ipratropium [place] Nasal [place] 0.06% 15ml) 2 sprays NA BID [facility] Stop: 11/21/20 08:59 Last Admin: 11/11/20 08:14 Dose: Not Given Documented by: Levothyroxine Sodium (Levothyroxine Sodium 88 Mcg Tablet) 88 mcg PO DAILYBB [facility] Stop: 11/22/20 07:59 Last Admin: 11/11/20 07:28 Dose: 88 mcg Documented by: Magnesium Hydroxide (Magnesium Hydroxide Susp 30 Ml Udc) 30 ml PO DAILY PRN PRN Reason: Constipation Stop: 11/21/20 01:14 Psyllium Hydrophilic Mucilloid (Psyllium 58.6% Powder Packet) 1 pkt PO QAM [facility] Stop: 11/26/20 08:59 Last Admin: 11/11/20 08:14 Dose: 1 pkt Documented by: Quetiapine Fumarate (Quetiapine Fumarate 200 Mg Tab) 200 mg PO DAILY [facility] Stop: 11/21/20 09:59 Last Admin: 11/11/20 08:14 Dose: 200 mg Documented by: Quetiapine Fumarate (Quetiapine Fumarate 200 Mg Tab) 400 mg PO [facility] Stop: 11/21/20 21:59 Last Admin: 11/10/20 20:43 Dose: 400 mg Documented by: Quetiapine Fumarate (Quetiapine Fumarate 100 Mg Tablet) 100 mg PO Q6 PRN PRN Reason: Anxiety/Agitation Stop: 11/21/20 17:59 Last Admin: 10/22/20 17:24 Dose: 100 mg Documented by: Simvastatin (Simvastatin 40 Mg Tab) 40 mg PO HS [facility] Stop: 11/21/20 21:59 Last Admin: 11/10/20 20:43 Dose: 40 mg Documented by: Sodium Chloride (Sodium Chloride 0.65% Na Soln 45 Ml ([place])) 1 - 2 sprays NA PRN PRN PRN Reason: Nasal Dryness/Congestion Stop: 11/21/20 01:14 Trazodone HCl (Trazodone Hcl 100 Mg Tab) 100 mg PO HS [facility] Stop: 11/21/20 21:59 Last Admin: 11/10/20 20:42 Dose: 100 mg Documented by: Trimethoprim/Sulfamethoxazole (Sulfamethoxazole/Trimethoprim Ds 800/160mg Tab) 1 tab PO Q12 [facility] Stop: 11/21/20 08:59 Last Admin: 11/11/20 08:14 Dose: 1 tab Documented by: Umeclidinium [place] (Umeclidinium [place] 62.5mcg/Blister 7 Puffs/Inhaler) 1 puffs INH DAILY [facility]; Protocol Stop: 11/21/20 09:44 Last Admin: 11/11/20 08:15 Dose: Not Given Documented by: Mental Health & Subst Abuse Tx Psychiatrist Name of Psychiatrist: Velvet Sanchez Psychiatrist's Psychiatric Appointment Comment: [address] [facility] Tuber Helper Name of Tuber Helper: [facility] Phone Number for Tuber Helper: [phone] Post Discharge Appointments Primary Care Physician Name Of Family Doctor: MAN - Dr. Lancaster (BENJA OlveraC) Primary Care Provider Appointment Comment: [address] [place] [address] Corey Paredes Specialist Name of Specialist: MAN Cardiology - Dr. Ga Villareal Phone Number for Specialist: [phone] Specialty Appointment Comment: [facility], [address], [place] Contact Information Discharge
[2020-11-11] MEDS: clonazePAM 0.5 MG TAB PO SCH (17:10)
[2020-11-11] MEDS: traZODone HCL 100 MG TAB PO SCH (21:00)
[2020-11-11] MEDS: SIMVASTATIN 40 MG TAB PO SCH (21:00)
[2020-11-12] MEDS: LEVOTHYROXINE SODIUM 88 MCG TABLET PO SCH (08:15)
[2020-11-12] MEDS: ASPIRIN 81 MG ECTAB PO SCH (08:38)
[2020-11-12] MEDS: dilTIAZem HCL 180 MG CAPCR PO SCH (08:38)
[2020-11-12] MEDS: APIXABAN 5 MG TABLET PO SCH ×2 (08:38→20:57)
[2020-11-12] MEDS: DOCUSATE SODIUM 100 MG CAP PO SCH ×2 (08:38→20:57)
[2020-11-12] MEDS: OMEGA-3 (PURIFIED FISH OIL) 1 GM CAP PO SCH (08:39)
[2020-11-12] MEDS: FERROUS SULFATE 325 MG TAB PO SCH ×2 (08:39→17:04)
[2020-11-12] MEDS: GABAPENTIN 400 MG CAP PO SCH ×3 (08:40→20:57)
[2020-11-12] MEDS: QUEtiapine FUMARATE 200 MG TAB PO SCH ×2 (08:42→20:57)
[2020-11-12] MEDS: SULFAMETHOXAZOLE/TRIMETHOPRIM DS 800/160MG TAB PO SCH ×2 (08:43→20:57)
[2020-11-12] MEDS: IPRATROPIUM BROMIDE NASAL SPRAY 0.06% 15ML SCH ×2 (08:43→20:59)
[2020-11-12] MEDS: PSYLLIUM 58.6% POWDER PACKET PO SCH (08:43)
[2020-11-12] MEDS: UMECLIDINIUM BROMIDE 62.5MCG/BLISTER 7 PUFFS/INHALER INH SCH (08:44)
--- NOTE | 2020-11-12 11:21 | Psychiatric Progress Note ---
Date of Service November 12, 2020 Impression / Recommendations Impression DEANDRE THOMPSON is a 60-year-old F, well known to due to recent admissions, has a history of schizoaffective disorder and a flutter s/p ablation, and was admitted on 10/22/20 01:04 on a 201 voluntary commitment s/p OD and disruptive behavior at [facility]. She was maintained on an outpatient commitment which has been converted to inpatient. Her AMS appears to be resolving but she remains reactive, intrussive, irritable due to paranoia. She is unable to care for herself outside of the hospital and is being referred to [facility]. 11/12/20--minimal improvement. Plan: continue current meds and treatment plan. Inventory Assets Strengths: family oriented, accepting of services (compared to initial presentation) Needs: housing Risk Factors Assessment Male: No : Yes Do You Have Access To A Gun?: No Health Problems: Yes Mental Health Diagnoses: Yes Substance Use Disorders: No Previous Attempt: Yes Previous Psychiatric Hospitalization: Yes Protective Factors Assessment Hoahaoism Beliefs: Yes : No Responsible for Young Children: No Employed: No Interval History Chief Complaint "last night the storms bothered me". Review of Systems Sleep Information Total Hours of Sleep: 6.5 Sleep Comments: pt on q-15 minute checks Meal Information Percent Meal Consumed - Breakfast: 75 Percent Meal Consumed - Lunch: 75 Percent Meal Consumed - Dinner: 100 Nutrition Comment: per meal record Subjective Subjective Patient was seen & assessed and interval progress reviewed with nursing and social work. staff noted quiet last night, patient states thunder/heavy rain reminded her of [place] which is traumatic. without complaint today. Willing to meet with office of aging and consider personal care options. Physical Exam Psychiatric Orientation: alert Apperance: appropriately groomed Eye Contact: + fair eye contact Motor Behavior: no abnormal motor movements Speech: normal rate/rhythm/volume of speech Affect: + depressed affect Mood: + anxious mood Thought Process: + concrete thought process Thought Content: + paranoid Suicidal Thoughts: denies suicidal thoughts Homicidal Thoughts: denies homicidal thoughts Hallucinations: no auditory hallucinations and no visual hallucinations Vital Signs (Past 24 Hours) Last Vital Signs Temp 36.8 C 11/12/20 06:43 Pulse 94 H 11/12/20 06:43 Resp 16 11/12/20 06:43 BP 116/71 11/12/20 06:43 Pulse Ox 97 06/13/21 18:58 Results & Data ([facility]) Current Inpatient Medications Current Inpatient Medications: Current Inpatient Medications Acetaminophen (Acetaminophen 325 Mg Tab) 650 mg PO Q4H PRN PRN Reason: Headache or Minor Fever Stop: 11/21/20 01:14 Last Admin: 10/31/20 05:43 Dose: 650 mg Documented by: Al Hydrox/Mg Hydrox/Simethicone (Aluminum/Magnesium Susp 30 Ml Udc) 30 ml PO Q4H PRN PRN Reason: GI Upset Stop: 11/21/20 01:14 Albuterol (Albuterol Hfa 8 Gm Inhaler) 2 puffs INH QID PRN; Protocol PRN Reason: shortness of breath or wheezing or cough Stop: 11/21/20 08:30 Apixaban (Apixaban 5 Mg Tablet) 5 mg PO BID [facility] Stop: 11/21/20 08:59 Last Admin: 11/12/20 08:38 Dose: 5 mg Documented by: Aspirin (Aspirin 81 Mg Ectab) 81 mg PO DAILY [facility] Stop: 11/21/20 08:59 Last Admin: 11/12/20 08:38 Dose: 81 mg Documented by: Clonazepam (Clonazepam 0.5 Mg Tab) 0.5 mg PO BID PRN PRN Reason: Anxiety Stop: 11/24/20 11:58 Clonazepam (Clonazepam 0.5 Mg Tab) 0.5 mg PO DAILYBD [facility] Stop: 11/24/20 17:14 Last Admin: 11/11/20 17:10 Dose: 0.5 mg Documented by: Diltiazem HCl (Diltiazem Hcl 180 Mg Capcr) 180 mg PO QAM [facility] Stop: 11/21/20 08:59 Last Admin: 11/12/20 08:38 Dose: 180 mg Documented by: Docusate Sodium (Docusate Sodium 100 Mg Cap) 100 mg PO BID [facility] Stop: 11/23/20 11:59 Last Admin: 11/12/20 08:38 Dose: 100 mg Documented by: Ferrous Sulfate (Ferrous Sulfate 325 Mg Tab) 325 mg PO BIDM [facility] Stop: 11/27/20 18:24 Last Admin: 11/12/20 08:39 Dose: 325 mg Documented by: Fish Oil ([place]-3 (Purified Fish Oil) 1 Gm Cap) 1 gm PO DAILY [facility] Stop: 11/21/20 09:44 Last Admin: 11/12/20 08:39 Dose: 1 gm Documented by: Gabapentin (Gabapentin 400 Mg Cap) 400 mg PO TID [facility] Stop: 11/21/20 08:59 Last Admin: 11/12/20 08:40 Dose: 400 mg Documented by: Ipratropium [place] (Ipratropium [place] Nasal [place] 0.06% 15ml) 2 sprays NA BID [facility] Stop: 11/21/20 08:59 Last Admin: 11/12/20 08:43 Dose: Not Given Documented by: Levothyroxine Sodium (Levothyroxine Sodium 88 Mcg Tablet) 88 mcg PO DAILYBB [facility] Stop: 11/22/20 07:59 Last Admin: 11/12/20 08:15 Dose: 88 mcg Documented by: Magnesium Hydroxide (Magnesium Hydroxide Susp 30 Ml Udc) 30 ml PO DAILY PRN PRN Reason: Constipation Stop: 11/21/20 01:14 Psyllium Hydrophilic Mucilloid (Psyllium 58.6% Powder Packet) 1 pkt PO QAM [facility] Stop: 11/26/20 08:59 Last Admin: 11/12/20 08:43 Dose: 1 pkt Documented by: Quetiapine Fumarate (Quetiapine Fumarate 200 Mg Tab) 200 mg PO DAILY [facility] Stop: 11/21/20 09:59 Last Admin: 11/12/20 08:42 Dose: 200 mg Documented by: Quetiapine Fumarate (Quetiapine Fumarate 200 Mg Tab) 400 mg PO [facility] Stop: 11/21/20 21:59 Last Admin: 11/11/20 21:01 Dose: 400 mg Documented by: Quetiapine Fumarate (Quetiapine Fumarate 100 Mg Tablet) 100 mg PO Q6 PRN PRN Reason: Anxiety/Agitation Stop: 11/21/20 17:59 Last Admin: 10/22/20 17:24 Dose: 100 mg Documented by: Simvastatin (Simvastatin 40 Mg Tab) 40 mg PO [facility] Stop: 11/21/20 21:59 Last Admin: 11/11/20 21:00 Dose: 40 mg Documented by: Sodium Chloride (Sodium Chloride 0.65% Na Soln 45 Ml ([place])) 1 - 2 sprays NA PRN PRN PRN Reason: Nasal Dryness/Congestion Stop: 11/21/20 01:14 Trazodone HCl (Trazodone Hcl 100 Mg Tab) 100 mg PO HS [facility] Stop: 11/21/20 21:59 Last Admin: 11/11/20 21:00 Dose: 100 mg Documented by: Trimethoprim/Sulfamethoxazole (Sulfamethoxazole/Trimethoprim Ds 800/160mg Tab) 1 tab PO Q12 [facility] Stop: 11/21/20 08:59 Last Admin: 11/12/20 08:43 Dose: 1 tab Documented by: Umeclidinium [place] (Umeclidinium [place] 62.5mcg/Blister 7 Puffs/Inhaler) 1 puffs INH DAILY [facility]; Protocol Stop: 11/21/20 09:44 Last Admin: 11/12/20 08:44 Dose: Not Given Documented by: Mental Health & Subst Abuse Tx Psychiatrist Name of Psychiatrist: Velvet Sanchez Psychiatrist's Psychiatric Appointment Comment: [id number] [facility] Waste Collector Name of Waste Collector: [facility] Service [facility] - [facility] Phone Number for Waste Collector: [phone] Post Discharge Appointments Primary Care Physician Name Of Family Doctor: MAN Lancaster (JADEN Olvera) Primary Care Provider Appointment Comment: [address] [place] [address] Corey Paredes Specialist Name of Specialist: MAN Cardiology - Dr. Ga Villareal Phone Number for Specialist: [phone] Specialty Appointment Comment: [address] [facility], [address], [place] Contact Information Discharge
[2020-11-12] MEDS: clonazePAM 0.5 MG TAB PO SCH (17:04)
[2020-11-12] MEDS: SIMVASTATIN 40 MG TAB PO SCH (20:57)
[2020-11-12] MEDS: traZODone HCL 100 MG TAB PO SCH (20:57)
[2020-11-13] MEDS: LEVOTHYROXINE SODIUM 88 MCG TABLET PO SCH (08:44)
[2020-11-13] MEDS: APIXABAN 5 MG TABLET PO SCH ×2 (08:59→21:29)
[2020-11-13] MEDS: ASPIRIN 81 MG ECTAB PO SCH (08:59)
[2020-11-13] MEDS: PSYLLIUM 58.6% POWDER PACKET PO SCH (09:00)
[2020-11-13] MEDS: GABAPENTIN 400 MG CAP PO SCH ×3 (09:00→21:30)
[2020-11-13] MEDS: DOCUSATE SODIUM 100 MG CAP PO SCH ×2 (09:00→21:29)
[2020-11-13] MEDS: dilTIAZem HCL 180 MG CAPCR PO SCH (09:00)
[2020-11-13] MEDS: OMEGA-3 (PURIFIED FISH OIL) 1 GM CAP PO SCH (09:00)
[2020-11-13] MEDS: IPRATROPIUM BROMIDE NASAL SPRAY 0.06% 15ML SCH ×2 (09:00→21:32)
[2020-11-13] MEDS: FERROUS SULFATE 325 MG TAB PO SCH ×2 (09:00→17:30)
[2020-11-13] MEDS: SULFAMETHOXAZOLE/TRIMETHOPRIM DS 800/160MG TAB PO SCH ×2 (09:01→21:30)
[2020-11-13] MEDS: QUEtiapine FUMARATE 200 MG TAB PO SCH ×2 (09:01→21:31)
[2020-11-13] MEDS: UMECLIDINIUM BROMIDE 62.5MCG/BLISTER 7 PUFFS/INHALER INH SCH (09:02)
--- NOTE | 2020-11-13 09:23 | Psychiatric Progress Note ---
Date of Service November 13, 2020 Impression / Recommendations Impression DEANDRE THOMPSON is a 60-year-old F, well known to due to recent admissions, has a history of schizoaffective disorder and a flutter s/p ablation, and was admitted on 10/22/20 01:04 on a 201 voluntary commitment s/p OD and disruptive behavior at [facility]. She was maintained on an outpatient commitment which has been converted to inpatient. Her AMS appears to be resolving but she remains reactive, intrussive, irritable due to paranoia. She is unable to care for herself outside of the hospital and is being referred to [facility]. 11/13/20--minimal improvement. Plan: continue current meds and treatment plan. [place] is still reviewing packet, exploring [facility] as possible diversion but patient remains resistant to options due to lack of insight. Inventory Assets Strengths: family oriented, accepting of services (compared to initial presentation) Needs: housing Risk Factors Assessment Male: No : Yes Do You Have Access To A Gun?: No Health Problems: Yes Mental Health Diagnoses: Yes Substance Use Disorders: No Previous Attempt: Yes Previous Psychiatric Hospitalization: Yes Protective Factors Assessment Anglican Beliefs: Yes : No Responsible for Young Children: No Employed: No Interval History Chief Complaint "I'm OK". Review of Systems Sleep Information Total Hours of Sleep: 7 Sleep Comments: pt on q-15 minute checks Meal Information Percent Meal Consumed - Breakfast: 75 Percent Meal Consumed - Lunch: 80 Percent Meal Consumed - Dinner: 100 Nutrition Comment: per meal record Subjective Subjective Patient was seen & assessed and interval progress reviewed with treatment team. was cooperative overnight. staff asked boyfriend to limit additional personal items due to hoarding. Denies smelling smoke. More tired this am. Physical Exam Psychiatric Orientation: alert Apperance: appropriately groomed Eye Contact: + fair eye contact non spontaneous speech Affect: + blunted affect Mood: + anxious mood Thought Process: + concrete thought process Thought Content: + paranoid Suicidal Thoughts: denies suicidal thoughts Homicidal Thoughts: denies homicidal thoughts Hallucinations: no auditory hallucinations and no visual hallucinations Vital Signs (Past 24 Hours) Last Vital Signs Temp 36.8 C 11/13/20 06:00 Pulse 99 H 11/13/20 06:18 Resp 15 11/13/20 06:00 BP 106/61 11/13/20 06:18 Pulse Ox 97 11/10/20 18:58 Results & Data ([facility]) Current Inpatient Medications Current Inpatient Medications: Current Inpatient Medications Acetaminophen (Acetaminophen 325 Mg Tab) 650 mg PO Q4H PRN PRN Reason: Headache or Minor Fever Stop: 11/21/20 01:14 Last Admin: 10/31/20 05:43 Dose: 650 mg Documented by: Al Hydrox/Mg Hydrox/Simethicone (Aluminum/Magnesium Susp 30 Ml Udc) 30 ml PO Q4H PRN PRN Reason: GI Upset Stop: 11/21/20 01:14 Albuterol (Albuterol Hfa 8 Gm Inhaler) 2 puffs INH QID PRN; Protocol PRN Reason: shortness of breath or wheezing or cough Stop: 11/21/20 08:30 Apixaban (Apixaban 5 Mg Tablet) 5 mg PO BID [facility] Stop: 11/21/20 08:59 Last Admin: 11/13/20 08:59 Dose: 5 mg Documented by: Aspirin (Aspirin 81 Mg Ectab) 81 mg PO DAILY [facility] Stop: 11/21/20 08:59 Last Admin: 11/13/20 08:59 Dose: 81 mg Documented by: Clonazepam (Clonazepam 0.5 Mg Tab) 0.5 mg PO BID PRN PRN Reason: Anxiety Stop: 11/24/20 11:58 Clonazepam (Clonazepam 0.5 Mg Tab) 0.5 mg PO DAILYBD [facility] Stop: 11/24/20 17:14 Last Admin: 11/12/20 17:04 Dose: 0.5 mg Documented by: Diltiazem HCl (Diltiazem Hcl 180 Mg Capcr) 180 mg PO QAM [facility] Stop: 11/21/20 08:59 Last Admin: 11/13/20 09:00 Dose: 180 mg Documented by: Docusate Sodium (Docusate Sodium 100 Mg Cap) 100 mg PO BID [facility] Stop: 11/23/20 11:59 Last Admin: 11/13/20 09:00 Dose: 100 mg Documented by: Ferrous Sulfate (Ferrous Sulfate 325 Mg Tab) 325 mg PO BIDM [facility] Stop: 11/27/20 18:24 Last Admin: 11/13/20 09:00 Dose: 325 mg Documented by: Fish Oil ([place]-3 (Purified Fish Oil) 1 Gm Cap) 1 gm PO DAILY [facility] Stop: 11/21/20 09:44 Last Admin: 11/13/20 09:00 Dose: 1 gm Documented by: Gabapentin (Gabapentin 400 Mg Cap) 400 mg PO TID [facility] Stop: 11/21/20 08:59 Last Admin: 11/13/20 09:00 Dose: 400 mg Documented by: Ipratropium [place] (Ipratropium [place] Nasal [place] 0.06% 15ml) 2 sprays NA BID [facility] Stop: 11/21/20 08:59 Last Admin: 11/13/20 09:00 Dose: Not Given Documented by: Levothyroxine Sodium (Levothyroxine Sodium 88 Mcg Tablet) 88 mcg PO DAILYBB [facility] Stop: 11/22/20 07:59 Last Admin: 11/13/20 08:44 Dose: 88 mcg Documented by: Magnesium Hydroxide (Magnesium Hydroxide Susp 30 Ml Udc) 30 ml PO DAILY PRN PRN Reason: Constipation Stop: 11/21/20 01:14 Psyllium Hydrophilic Mucilloid (Psyllium 58.6% Powder Packet) 1 pkt PO QAM [facility] Stop: 11/26/20 08:59 Last Admin: 11/13/20 09:00 Dose: 1 pkt Documented by: Quetiapine Fumarate (Quetiapine Fumarate 200 Mg Tab) 200 mg PO DAILY [facility] Stop: 11/21/20 09:59 Last Admin: 11/13/20 09:01 Dose: 200 mg Documented by: Quetiapine Fumarate (Quetiapine Fumarate 200 Mg Tab) 400 mg PO [facility] Stop: 11/21/20 21:59 Last Admin: 11/12/20 20:57 Dose: 400 mg Documented by: Quetiapine Fumarate (Quetiapine Fumarate 100 Mg Tablet) 100 mg PO Q6 PRN PRN Reason: Anxiety/Agitation Stop: 11/21/20 17:59 Last Admin: 10/22/20 17:24 Dose: 100 mg Documented by: Simvastatin (Simvastatin 40 Mg Tab) 40 mg PO [facility] Stop: 11/21/20 21:59 Last Admin: 11/12/20 20:57 Dose: 40 mg Documented by: Sodium Chloride (Sodium Chloride 0.65% Na Soln 45 Ml ([place])) 1 - 2 sprays NA PRN PRN PRN Reason: Nasal Dryness/Congestion Stop: 11/21/20 01:14 Trazodone HCl (Trazodone Hcl 100 Mg Tab) 100 mg PO [facility] Stop: 11/21/20 21:59 Last Admin: 11/12/20 20:57 Dose: 100 mg Documented by: Trimethoprim/Sulfamethoxazole (Sulfamethoxazole/Trimethoprim Ds 800/160mg Tab) 1 tab PO Q12 [facility] Stop: 11/21/20 08:59 Last Admin: 11/13/20 09:01 Dose: 1 tab Documented by: Umeclidinium [place] (Umeclidinium [place] 62.5mcg/Blister 7 Puffs/Inhaler) 1 puffs INH DAILY [facility]; Protocol Stop: 11/21/20 09:44 Last Admin: 11/13/20 09:02 Dose: Not Given Documented by: Mental Health & Subst Abuse Tx Psychiatrist Name of Psychiatrist: Velvet Sanchez Psychiatrist's Psychiatric Appointment Comment: [id number] [facility] Adapted Physical Education Aide Name of Adapted Physical Education Aide: [facility] Phone Number for Adapted Physical Education Aide: [phone] Post Discharge Appointments Primary Care Physician Name Of Family Doctor: MAN Lancaster (BENJA OlveraC) Primary Care Provider Appointment Comment: [address] [place] [address] Corey Paredes Specialist Name of Specialist: MAN Cardiology - Dr. Ga Villareal Phone Number for Specialist: [phone] Specialty Appointment Comment: [address] [facility], [address], [place] Contact Information Discharge
[2020-11-13] MEDS: clonazePAM 0.5 MG TAB PO SCH (17:30)
[2020-11-13] MEDS: SIMVASTATIN 40 MG TAB PO SCH (21:31)
[2020-11-13] MEDS: traZODone HCL 100 MG TAB PO SCH (21:32)
[2020-11-14] MEDS: ACETAMINOPHEN 325 MG TAB PO PRN (06:45)
[2020-11-14] MEDS: LEVOTHYROXINE SODIUM 88 MCG TABLET PO SCH (07:29)
[2020-11-14] MEDS: DOCUSATE SODIUM 100 MG CAP PO SCH ×2 (08:46→21:35)
[2020-11-14] MEDS: OMEGA-3 (PURIFIED FISH OIL) 1 GM CAP PO SCH (08:46)
[2020-11-14] MEDS: ASPIRIN 81 MG ECTAB PO SCH (08:46)
[2020-11-14] MEDS: GABAPENTIN 400 MG CAP PO SCH ×3 (08:46→21:34)
[2020-11-14] MEDS: FERROUS SULFATE 325 MG TAB PO SCH ×2 (08:46→17:14)
[2020-11-14] MEDS: dilTIAZem HCL 180 MG CAPCR PO SCH (08:46)
[2020-11-14] MEDS: APIXABAN 5 MG TABLET PO SCH ×2 (08:46→21:34)
[2020-11-14] MEDS: IPRATROPIUM BROMIDE NASAL SPRAY 0.06% 15ML SCH ×2 (08:47→21:35)
[2020-11-14] MEDS: PSYLLIUM 58.6% POWDER PACKET PO SCH (08:47)
[2020-11-14] MEDS: UMECLIDINIUM BROMIDE 62.5MCG/BLISTER 7 PUFFS/INHALER INH SCH (08:47)
[2020-11-14] MEDS: QUEtiapine FUMARATE 200 MG TAB PO SCH ×2 (08:47→21:35)
[2020-11-14] MEDS: SULFAMETHOXAZOLE/TRIMETHOPRIM DS 800/160MG TAB PO SCH ×2 (08:47→21:34)
--- NOTE | 2020-11-14 09:02 | Psychiatric Progress Note ---
Date of Service November 14, 2020 Impression / Recommendations Impression DEANDRE THOMPSON is a 60-year-old F, well known to due to recent admissions, has a history of schizoaffective disorder and a flutter s/p ablation, and was admitted on 10/22/20 01:04 on a 201 voluntary commitment s/p OD and disruptive behavior at [facility] She was maintained on an outpatient commitment which has been converted to inpatient. Her AMS appears to be resolving but she remains reactive, intrussive, irritable due to paranoia. She is unable to care for herself outside of the hospital and is being referred to [facility]. 11/14/20--improving. Plan: continue current meds and treatment plan. hearing tomorrow, confirming as . Inventory Assets Strengths: family oriented, accepting of services (compared to initial presentation) Needs: housing Risk Factors Assessment Male: No : Yes Do You Have Access To A Gun?: No Health Problems: Yes Mental Health Diagnoses: Yes Substance Use Disorders: No Previous Attempt: Yes Previous Psychiatric Hospitalization: Yes Protective Factors Assessment Nondenominational Beliefs: Yes : No Responsible for Young Children: No Employed: No Interval History Chief Complaint "I guess I'm good with all these meetings". Review of Systems Sleep Information Total Hours of Sleep: 7 Sleep Comments: pt on q-15 minute checks Meal Information Percent Meal Consumed - Breakfast: 100 Percent Meal Consumed - Lunch: 100 Percent Meal Consumed - Dinner: 100 Nutrition Comment: per meal record Subjective Subjective Patient was seen & assessed and interval progress reviewed with nursing and social work. No acute issues overnight. Still notes some PTSD related sensory issues like sensitivity to light. Tolerating and compliant with meds. Physical Exam Psychiatric Orientation: alert Apperance: appropriately groomed Eye Contact: + fair eye contact Speech: normal rate/rhythm/volume of speech Affect: + blunted affect Mood: + anxious mood Thought Process: + concrete thought process Thought Content: + paranoid Suicidal Thoughts: denies suicidal thoughts Homicidal Thoughts: denies homicidal thoughts Hallucinations: no auditory hallucinations and no visual hallucinations Vital Signs (Past 24 Hours) Last Vital Signs Temp 36.5 C 11/14/20 06:00 Pulse 111 H 11/14/20 06:35 Resp 16 11/14/20 06:00 BP 104/64 11/14/20 06:35 Pulse Ox 97 11/10/20 18:58 Results & Data ([facility]) Current Inpatient Medications Current Inpatient Medications: Current Inpatient Medications Acetaminophen (Acetaminophen 325 Mg Tab) 650 mg PO Q4H PRN PRN Reason: Headache or Minor Fever Stop: 11/21/20 01:14 Last Admin: 11/14/20 06:45 Dose: 650 mg Documented by: Al Hydrox/Mg Hydrox/Simethicone (Aluminum/Magnesium Susp 30 Ml Udc) 30 ml PO Q4H PRN PRN Reason: GI Upset Stop: 11/21/20 01:14 Albuterol (Albuterol Hfa 8 Gm Inhaler) 2 puffs INH QID PRN; Protocol PRN Reason: shortness of breath or wheezing or cough Stop: 11/21/20 08:30 Apixaban (Apixaban 5 Mg Tablet) 5 mg PO BID [facility] Stop: 11/21/20 08:59 Last Admin: 11/14/20 08:46 Dose: 5 mg Documented by: Aspirin (Aspirin 81 Mg Ectab) 81 mg PO DAILY [facility] Stop: 11/21/20 08:59 Last Admin: 11/14/20 08:46 Dose: 81 mg Documented by: Clonazepam (Clonazepam 0.5 Mg Tab) 0.5 mg PO BID PRN PRN Reason: Anxiety Stop: 11/24/20 11:58 Clonazepam (Clonazepam 0.5 Mg Tab) 0.5 mg PO DAILYBD [facility] Stop: 11/24/20 17:14 Last Admin: 11/13/20 17:30 Dose: 0.5 mg Documented by: Diltiazem HCl (Diltiazem Hcl 180 Mg Capcr) 180 mg PO QAM [facility] Stop: 11/21/20 08:59 Last Admin: 11/14/20 08:46 Dose: 180 mg Documented by: Docusate Sodium (Docusate Sodium 100 Mg Cap) 100 mg PO BID [facility] Stop: 11/23/20 11:59 Last Admin: 11/14/20 08:46 Dose: 100 mg Documented by: Ferrous Sulfate (Ferrous Sulfate 325 Mg Tab) 325 mg PO BIDM [facility] Stop: 11/27/20 18:24 Last Admin: 11/14/20 08:46 Dose: 325 mg Documented by: Fish Oil ([place]-3 (Purified Fish Oil) 1 Gm Cap) 1 gm PO DAILY [facility] Stop: 11/21/20 09:44 Last Admin: 11/14/20 08:46 Dose: 1 gm Documented by: Gabapentin (Gabapentin 400 Mg Cap) 400 mg PO TID [facility] Stop: 11/21/20 08:59 Last Admin: 11/14/20 08:46 Dose: 400 mg Documented by: Ipratropium [place] (Ipratropium [place] Nasal [place] 0.06% 15ml) 2 sprays NA BID [facility] Stop: 11/21/20 08:59 Last Admin: 11/14/20 08:47 Dose: Not Given Documented by: Levothyroxine Sodium (Levothyroxine Sodium 88 Mcg Tablet) 88 mcg PO DAILYBB [facility] Stop: 11/22/20 07:59 Last Admin: 11/14/20 07:29 Dose: 88 mcg Documented by: Magnesium Hydroxide (Magnesium Hydroxide Susp 30 Ml Udc) 30 ml PO DAILY PRN PRN Reason: Constipation Stop: 11/21/20 01:14 Psyllium Hydrophilic Mucilloid (Psyllium 58.6% Powder Packet) 1 pkt PO QAM [facility] Stop: 11/26/20 08:59 Last Admin: 11/14/20 08:47 Dose: 1 pkt Documented by: Quetiapine Fumarate (Quetiapine Fumarate 200 Mg Tab) 200 mg PO DAILY [facility] Stop: 11/21/20 09:59 Last Admin: 11/14/20 08:47 Dose: 200 mg Documented by: Quetiapine Fumarate (Quetiapine Fumarate 200 Mg Tab) 400 mg PO HS [facility] Stop: 11/21/20 21:59 Last Admin: 11/13/20 21:31 Dose: 400 mg Documented by: Quetiapine Fumarate (Quetiapine Fumarate 100 Mg Tablet) 100 mg PO Q6 PRN PRN Reason: Anxiety/Agitation Stop: 11/21/20 17:59 Last Admin: 10/22/20 17:24 Dose: 100 mg Documented by: Simvastatin (Simvastatin 40 Mg Tab) 40 mg PO HS [facility] Stop: 11/21/20 21:59 Last Admin: 11/13/20 21:31 Dose: 40 mg Documented by: Sodium Chloride (Sodium Chloride 0.65% Na Soln 45 Ml ([place])) 1 - 2 sprays NA PRN PRN PRN Reason: Nasal Dryness/Congestion Stop: 11/21/20 01:14 Trazodone HCl (Trazodone Hcl 100 Mg Tab) 100 mg PO HS [facility] Stop: 11/21/20 21:59 Last Admin: 11/13/20 21:32 Dose: 100 mg Documented by: Trimethoprim/Sulfamethoxazole (Sulfamethoxazole/Trimethoprim Ds 800/160mg Tab) 1 tab PO Q12 [facility] Stop: 11/21/20 08:59 Last Admin: 11/14/20 08:47 Dose: 1 tab Documented by: Umeclidinium [place] (Umeclidinium [place] 62.5mcg/Blister 7 Puffs/Inhaler) 1 puffs INH DAILY [facility]; Protocol Stop: 11/21/20 09:44 Last Admin: 11/14/20 08:47 Dose: Not Given Documented by: Mental Health & Subst Abuse Tx Psychiatrist Name of Psychiatrist: Velvet Sanchez Psychiatrist's Psychiatric Appointment Comment: [id number] [facility] Pharmacy Intake Coordinator Name of Pharmacy Intake Coordinator: [facility] - [facility] Phone Number for Pharmacy Intake Coordinator: [phone] Post Discharge Appointments Primary Care Physician Name Of Family Doctor: MAN Lancaster (May, PAUrvashiC) Primary Care Provider Appointment Comment: [address] [place] [address] Corey Paredes Specialist Name of Specialist: MAN Cardiology - Dr. Ga Villareal Phone Number for Specialist: [phone] Specialty Appointment Comment: [address] [facility], [address], [place] Contact Information Discharge
[2020-11-14] MEDS: clonazePAM 0.5 MG TAB PO SCH (17:14)
[2020-11-14] MEDS: SIMVASTATIN 40 MG TAB PO SCH (21:34)
[2020-11-14] MEDS: traZODone HCL 100 MG TAB PO SCH (21:35)
[2020-11-15] MEDS: LEVOTHYROXINE SODIUM 88 MCG TABLET PO SCH (09:00)
[2020-11-15] MEDS: PSYLLIUM 58.6% POWDER PACKET PO SCH (09:00)
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
[2020-11-15] MEDS: ASPIRIN 81 MG ECTAB PO SCH (09:01)
[2020-11-15] MEDS: APIXABAN 5 MG TABLET PO SCH ×2 (09:01→20:51)
[2020-11-15] MEDS: dilTIAZem HCL 180 MG CAPCR PO SCH (09:02)
[2020-11-15] MEDS: IPRATROPIUM BROMIDE NASAL SPRAY 0.06% 15ML SCH ×2 (09:02→20:51)
[2020-11-15] MEDS: DOCUSATE SODIUM 100 MG CAP PO SCH ×2 (09:02→20:51)
[2020-11-15] MEDS: OMEGA-3 (PURIFIED FISH OIL) 1 GM CAP PO SCH (09:02)
[2020-11-15] MEDS: QUEtiapine FUMARATE 200 MG TAB PO SCH ×2 (09:02→20:51)
[2020-11-15] MEDS: SULFAMETHOXAZOLE/TRIMETHOPRIM DS 800/160MG TAB PO SCH ×2 (09:03→20:50)
[2020-11-15] MEDS: FERROUS SULFATE 325 MG TAB PO SCH ×2 (09:03→17:14)
[2020-11-15] MEDS: GABAPENTIN 400 MG CAP PO SCH ×3 (09:03→20:51)
[2020-11-15] MEDS: UMECLIDINIUM BROMIDE 62.5MCG/BLISTER 7 PUFFS/INHALER INH SCH (09:04)
[2020-11-15] MEDS: clonazePAM 0.5 MG TAB PO SCH (17:14)
[2020-11-15] MEDS: SIMVASTATIN 40 MG TAB PO SCH (20:50)
[2020-11-15] MEDS: traZODone HCL 100 MG TAB PO SCH (20:51)
[2020-11-16] MEDS: LEVOTHYROXINE SODIUM 88 MCG TABLET PO SCH (08:07)
[2020-11-16] MEDS: DOCUSATE SODIUM 100 MG CAP PO SCH ×2 (09:01→21:09)
[2020-11-16] MEDS: dilTIAZem HCL 180 MG CAPCR PO SCH (09:01)
[2020-11-16] MEDS: APIXABAN 5 MG TABLET PO SCH ×2 (09:01→21:09)
[2020-11-16] MEDS: FERROUS SULFATE 325 MG TAB PO SCH ×2 (09:01→17:27)
[2020-11-16] MEDS: ASPIRIN 81 MG ECTAB PO SCH (09:01)
[2020-11-16] MEDS: OMEGA-3 (PURIFIED FISH OIL) 1 GM CAP PO SCH (09:02)
[2020-11-16] MEDS: QUEtiapine FUMARATE 200 MG TAB PO SCH ×2 (09:02→21:09)
[2020-11-16] MEDS: IPRATROPIUM BROMIDE NASAL SPRAY 0.06% 15ML SCH ×2 (09:02→21:08)
[2020-11-16] MEDS: PSYLLIUM 58.6% POWDER PACKET PO SCH (09:02)
[2020-11-16] MEDS: GABAPENTIN 400 MG CAP PO SCH ×3 (09:02→21:09)
[2020-11-16] MEDS: UMECLIDINIUM BROMIDE 62.5MCG/BLISTER 7 PUFFS/INHALER INH SCH (09:03)
[2020-11-16] MEDS: SULFAMETHOXAZOLE/TRIMETHOPRIM DS 800/160MG TAB PO SCH ×2 (09:03→21:08)
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
[2020-11-16] MEDS: clonazePAM 0.5 MG TAB PO SCH (17:27)
[2020-11-16] MEDS: SIMVASTATIN 40 MG TAB PO SCH (21:09)
[2020-11-16] MEDS: traZODone HCL 100 MG TAB PO SCH (21:09)
[2020-11-17] MEDS: SULFAMETHOXAZOLE/TRIMETHOPRIM DS 800/160MG TAB PO SCH ×2 (08:25→21:43)
[2020-11-17] MEDS: DOCUSATE SODIUM 100 MG CAP PO SCH ×2 (08:25→21:42)
[2020-11-17] MEDS: ASPIRIN 81 MG ECTAB PO SCH (08:26)
[2020-11-17] MEDS: FERROUS SULFATE 325 MG TAB PO SCH ×2 (08:26→17:11)
[2020-11-17] MEDS: dilTIAZem HCL 180 MG CAPCR PO SCH (08:26)
[2020-11-17] MEDS: GABAPENTIN 400 MG CAP PO SCH ×3 (08:26→21:43)
[2020-11-17] MEDS: QUEtiapine FUMARATE 200 MG TAB PO SCH ×2 (08:26→21:43)
[2020-11-17] MEDS: OMEGA-3 (PURIFIED FISH OIL) 1 GM CAP PO SCH (08:26)
[2020-11-17] MEDS: LEVOTHYROXINE SODIUM 88 MCG TABLET PO SCH (08:26)
[2020-11-17] MEDS: APIXABAN 5 MG TABLET PO SCH ×2 (08:26→21:42)
[2020-11-17] MEDS: IPRATROPIUM BROMIDE NASAL SPRAY 0.06% 15ML SCH ×2 (08:27→21:43)
[2020-11-17] MEDS: UMECLIDINIUM BROMIDE 62.5MCG/BLISTER 7 PUFFS/INHALER INH SCH (08:27)
[2020-11-17] MEDS: PSYLLIUM 58.6% POWDER PACKET PO SCH (08:27)
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
[2020-11-17] MEDS: clonazePAM 0.5 MG TAB PO SCH (17:11)
[2020-11-17] MEDS: traZODone HCL 100 MG TAB PO SCH (21:44)
[2020-11-17] MEDS: SIMVASTATIN 40 MG TAB PO SCH (21:44)
[2020-11-18] MEDS: LEVOTHYROXINE SODIUM 88 MCG TABLET PO SCH (08:05)
[2020-11-18] MEDS: PSYLLIUM 58.6% POWDER PACKET PO SCH (08:16)
[2020-11-18] MEDS: APIXABAN 5 MG TABLET PO SCH ×2 (08:17→21:12)
[2020-11-18] MEDS: ASPIRIN 81 MG ECTAB PO SCH (08:18)
[2020-11-18] MEDS: dilTIAZem HCL 180 MG CAPCR PO SCH (08:18)
[2020-11-18] MEDS: DOCUSATE SODIUM 100 MG CAP PO SCH ×2 (08:18→21:12)
[2020-11-18] MEDS: OMEGA-3 (PURIFIED FISH OIL) 1 GM CAP PO SCH (08:19)
[2020-11-18] MEDS: FERROUS SULFATE 325 MG TAB PO SCH ×2 (08:19→17:17)
[2020-11-18] MEDS: GABAPENTIN 400 MG CAP PO SCH ×3 (08:19→21:12)
[2020-11-18] MEDS: UMECLIDINIUM BROMIDE 62.5MCG/BLISTER 7 PUFFS/INHALER INH SCH (08:20)
[2020-11-18] MEDS: SULFAMETHOXAZOLE/TRIMETHOPRIM DS 800/160MG TAB PO SCH ×2 (08:20→21:12)
[2020-11-18] MEDS: IPRATROPIUM BROMIDE NASAL SPRAY 0.06% 15ML SCH ×2 (08:20→21:12)
[2020-11-18] MEDS: QUEtiapine FUMARATE 200 MG TAB PO SCH ×2 (08:20→21:13)
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
[2020-11-18] MEDS: clonazePAM 0.5 MG TAB PO SCH (17:02)
[2020-11-18] MEDS: SIMVASTATIN 40 MG TAB PO SCH (21:13)
[2020-11-18] MEDS: traZODone HCL 100 MG TAB PO SCH (21:13)
[2020-11-19] MEDS: PSYLLIUM 58.6% POWDER PACKET PO SCH (09:29)
[2020-11-19] MEDS: LEVOTHYROXINE SODIUM 88 MCG TABLET PO SCH (09:30)
[2020-11-19] MEDS: ASPIRIN 81 MG ECTAB PO SCH (09:30)
[2020-11-19] MEDS: APIXABAN 5 MG TABLET PO SCH ×2 (09:30→21:10)
[2020-11-19] MEDS: dilTIAZem HCL 180 MG CAPCR PO SCH (09:31)
[2020-11-19] MEDS: FERROUS SULFATE 325 MG TAB PO SCH ×2 (09:31→17:46)
[2020-11-19] MEDS: OMEGA-3 (PURIFIED FISH OIL) 1 GM CAP PO SCH (09:31)
[2020-11-19] MEDS: DOCUSATE SODIUM 100 MG CAP PO SCH ×2 (09:31→21:10)
[2020-11-19] MEDS: GABAPENTIN 400 MG CAP PO SCH ×3 (09:32→21:11)
[2020-11-19] MEDS: SULFAMETHOXAZOLE/TRIMETHOPRIM DS 800/160MG TAB PO SCH ×2 (09:33→21:12)
[2020-11-19] MEDS: UMECLIDINIUM BROMIDE 62.5MCG/BLISTER 7 PUFFS/INHALER INH SCH ×2 (09:33→09:43)
[2020-11-19] MEDS: QUEtiapine FUMARATE 200 MG TAB PO SCH ×2 (09:33→21:10)
[2020-11-19] MEDS: IPRATROPIUM BROMIDE NASAL SPRAY 0.06% 15ML SCH ×2 (09:46→21:12)
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
[2020-11-19] MEDS: clonazePAM 0.5 MG TAB PO SCH (17:47)
[2020-11-19] MEDS: ACETAMINOPHEN 325 MG TAB PO PRN (20:32)
[2020-11-19] MEDS: SIMVASTATIN 40 MG TAB PO SCH (21:10)
[2020-11-19] MEDS: traZODone HCL 100 MG TAB PO SCH (21:10)
[2020-11-20] MEDS: LEVOTHYROXINE SODIUM 88 MCG TABLET PO SCH (08:19)
[2020-11-20] MEDS: FERROUS SULFATE 325 MG TAB PO SCH ×2 (09:39→17:41)
[2020-11-20] MEDS: OMEGA-3 (PURIFIED FISH OIL) 1 GM CAP PO SCH (09:39)
[2020-11-20] MEDS: DOCUSATE SODIUM 100 MG CAP PO SCH ×2 (09:39→20:30)
[2020-11-20] MEDS: GABAPENTIN 400 MG CAP PO SCH ×3 (09:39→20:30)
[2020-11-20] MEDS: APIXABAN 5 MG TABLET PO SCH ×2 (09:39→20:30)
[2020-11-20] MEDS: SULFAMETHOXAZOLE/TRIMETHOPRIM DS 800/160MG TAB PO SCH ×2 (09:39→20:30)
[2020-11-20] MEDS: QUEtiapine FUMARATE 200 MG TAB PO SCH ×2 (09:39→20:31)
[2020-11-20] MEDS: dilTIAZem HCL 180 MG CAPCR PO SCH (09:40)
[2020-11-20] MEDS: UMECLIDINIUM BROMIDE 62.5MCG/BLISTER 7 PUFFS/INHALER INH SCH (09:41)
[2020-11-20] MEDS: PSYLLIUM 58.6% POWDER PACKET PO SCH (09:41)
[2020-11-20] MEDS: IPRATROPIUM BROMIDE NASAL SPRAY 0.06% 15ML SCH ×2 (09:42→20:43)
[2020-11-20] MEDS: ASPIRIN 81 MG ECTAB PO SCH (09:48)
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
[2020-11-20] MEDS: clonazePAM 0.5 MG TAB PO SCH (16:55)
[2020-11-20] MEDS: SIMVASTATIN 40 MG TAB PO SCH (20:31)
[2020-11-20] MEDS: traZODone HCL 100 MG TAB PO SCH (20:32)
[2020-11-21] MEDS: DOCUSATE SODIUM 100 MG CAP PO SCH ×2 (07:27→20:54)
[2020-11-21] MEDS: OMEGA-3 (PURIFIED FISH OIL) 1 GM CAP PO SCH (07:27)
[2020-11-21] MEDS: APIXABAN 5 MG TABLET PO SCH ×2 (07:27→20:54)
[2020-11-21] MEDS: GABAPENTIN 400 MG CAP PO SCH ×3 (07:27→20:54)
[2020-11-21] MEDS: UMECLIDINIUM BROMIDE 62.5MCG/BLISTER 7 PUFFS/INHALER INH SCH (07:27)
[2020-11-21] MEDS: dilTIAZem HCL 180 MG CAPCR PO SCH (07:27)
[2020-11-21] MEDS: LEVOTHYROXINE SODIUM 88 MCG TABLET PO SCH (07:28)
[2020-11-21] MEDS: ASPIRIN 81 MG ECTAB PO SCH (07:28)
[2020-11-21] MEDS: QUEtiapine FUMARATE 200 MG TAB PO SCH ×2 (07:28→20:54)
[2020-11-21] MEDS: IPRATROPIUM BROMIDE NASAL SPRAY 0.06% 15ML SCH ×2 (07:28→20:55)
[2020-11-21] MEDS: SULFAMETHOXAZOLE/TRIMETHOPRIM DS 800/160MG TAB PO SCH ×2 (07:28→20:54)
[2020-11-21] MEDS: PSYLLIUM 58.6% POWDER PACKET PO SCH (07:28)
[2020-11-21] MEDS: FERROUS SULFATE 325 MG TAB PO SCH ×2 (07:29→17:35)
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
[2020-11-21] MEDS: clonazePAM 0.5 MG TAB PO SCH (17:35)
[2020-11-21] MEDS: ACETAMINOPHEN 325 MG TAB PO PRN (19:17)
[2020-11-21] MEDS: traZODone HCL 100 MG TAB PO SCH (20:54)
[2020-11-21] MEDS: SIMVASTATIN 40 MG TAB PO SCH (20:54)
[2020-11-22] MEDS: LEVOTHYROXINE SODIUM 88 MCG TABLET PO SCH (08:12)
[2020-11-22] MEDS: APIXABAN 5 MG TABLET PO SCH ×2 (08:49→21:03)
[2020-11-22] MEDS: dilTIAZem HCL 180 MG CAPCR PO SCH (08:50)
[2020-11-22] MEDS: ASPIRIN 81 MG ECTAB PO SCH (08:50)
[2020-11-22] MEDS: DOCUSATE SODIUM 100 MG CAP PO SCH ×2 (08:50→21:03)
[2020-11-22] MEDS: FERROUS SULFATE 325 MG TAB PO SCH ×2 (08:51→17:10)
[2020-11-22] MEDS: GABAPENTIN 400 MG CAP PO SCH ×3 (08:51→21:03)
[2020-11-22] MEDS: OMEGA-3 (PURIFIED FISH OIL) 1 GM CAP PO SCH (08:51)
[2020-11-22] MEDS: IPRATROPIUM BROMIDE NASAL SPRAY 0.06% 15ML SCH ×2 (08:51→21:11)
[2020-11-22] MEDS: PSYLLIUM 58.6% POWDER PACKET PO SCH (08:52)
[2020-11-22] MEDS: QUEtiapine FUMARATE 200 MG TAB PO SCH ×2 (08:52→21:04)
[2020-11-22] MEDS: SULFAMETHOXAZOLE/TRIMETHOPRIM DS 800/160MG TAB PO SCH ×2 (08:52→21:03)
[2020-11-22] MEDS: UMECLIDINIUM BROMIDE 62.5MCG/BLISTER 7 PUFFS/INHALER INH SCH (08:53)
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
[2020-11-22] MEDS: clonazePAM 0.5 MG TAB PO SCH (17:10)
[2020-11-22] MEDS: SIMVASTATIN 40 MG TAB PO SCH (21:05)
[2020-11-22] MEDS: traZODone HCL 100 MG TAB PO SCH (21:05)
[2020-11-23] MEDS: LEVOTHYROXINE SODIUM 88 MCG TABLET PO SCH (07:45)
[2020-11-23] MEDS: PSYLLIUM 58.6% POWDER PACKET PO SCH (07:45)
[2020-11-23] MEDS: ASPIRIN 81 MG ECTAB PO SCH (08:52)
[2020-11-23] MEDS: DOCUSATE SODIUM 100 MG CAP PO SCH ×2 (08:53→20:49)
[2020-11-23] MEDS: FERROUS SULFATE 325 MG TAB PO SCH ×2 (08:53→16:59)
[2020-11-23] MEDS: OMEGA-3 (PURIFIED FISH OIL) 1 GM CAP PO SCH (08:53)
[2020-11-23] MEDS: dilTIAZem HCL 180 MG CAPCR PO SCH (08:53)
[2020-11-23] MEDS: APIXABAN 5 MG TABLET PO SCH ×2 (08:53→20:49)
[2020-11-23] MEDS: GABAPENTIN 400 MG CAP PO SCH ×3 (08:54→20:49)
[2020-11-23] MEDS: IPRATROPIUM BROMIDE NASAL SPRAY 0.06% 15ML SCH ×2 (08:54→20:49)
[2020-11-23] MEDS: SULFAMETHOXAZOLE/TRIMETHOPRIM DS 800/160MG TAB PO SCH ×2 (08:55→20:50)
[2020-11-23] MEDS: UMECLIDINIUM BROMIDE 62.5MCG/BLISTER 7 PUFFS/INHALER INH SCH (08:55)
[2020-11-23] MEDS: QUEtiapine FUMARATE 200 MG TAB PO SCH ×2 (08:55→20:50)
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
[2020-11-23] MEDS: DULoxetine HCL 20 MG CAP PO SCH (10:53)
[2020-11-23] MEDS: SODIUM CHLORIDE 0.65% NA SOLN 45 ML (OCEAN) PRN (15:12)
[2020-11-23] MEDS: clonazePAM 0.5 MG TAB PO SCH (16:58)
[2020-11-23] MEDS: ACETAMINOPHEN 325 MG TAB PO PRN (18:37)
[2020-11-23] MEDS: traZODone HCL 100 MG TAB PO SCH (20:50)
[2020-11-23] MEDS: SIMVASTATIN 40 MG TAB PO SCH (20:50)
[2020-11-24] MEDS: LEVOTHYROXINE SODIUM 88 MCG TABLET PO SCH (07:49)
[2020-11-24] MEDS: UMECLIDINIUM BROMIDE 62.5MCG/BLISTER 7 PUFFS/INHALER INH SCH (08:44)
[2020-11-24] MEDS: PSYLLIUM 58.6% POWDER PACKET PO SCH (08:44)
[2020-11-24] MEDS: IPRATROPIUM BROMIDE NASAL SPRAY 0.06% 15ML SCH ×2 (08:46→20:28)
[2020-11-24] MEDS: APIXABAN 5 MG TABLET PO SCH ×2 (08:48→20:28)
[2020-11-24] MEDS: ASPIRIN 81 MG ECTAB PO SCH (08:48)
[2020-11-24] MEDS: DOCUSATE SODIUM 100 MG CAP PO SCH ×2 (08:49→20:28)
[2020-11-24] MEDS: dilTIAZem HCL 180 MG CAPCR PO SCH (08:49)
[2020-11-24] MEDS: DULoxetine HCL 20 MG CAP PO SCH (08:49)
[2020-11-24] MEDS: OMEGA-3 (PURIFIED FISH OIL) 1 GM CAP PO SCH (08:50)
[2020-11-24] MEDS: GABAPENTIN 400 MG CAP PO SCH ×3 (08:51→20:28)
[2020-11-24] MEDS: QUEtiapine FUMARATE 200 MG TAB PO SCH ×2 (08:52→20:29)
[2020-11-24] MEDS: SULFAMETHOXAZOLE/TRIMETHOPRIM DS 800/160MG TAB PO SCH ×2 (08:52→20:29)
[2020-11-24] MEDS: FERROUS SULFATE 325 MG TAB PO SCH ×2 (08:56→17:09)
--- NOTE | 2020-11-24 11:00 | Psychiatric Progress Note ---
Date of Service November 24, 2020 Impression / Recommendations Impression DEANDRE THOMPSON is a 60-year-old F, well known to due to recent admissions, has a history of schizoaffective disorder and a flutter s/p ablation, and was admitted on 10/22/20 01:04 on a 201 voluntary commitment s/p OD and disruptive behavior at [facility]. She was maintained on an outpatient commitment which has been converted to inpatient. Her AMS appears to be resolving but she remains reactive, intrussive, irritable due to paranoia. She is unable to care for herself outside of the hospital and is being referred to [facility]. 11/24/20--less depressed today. fewer somatic complaints. Inventory Assets Strengths: family oriented, accepting of services (compared to initial presentation) Needs: housing Risk Factors Assessment Male: No : Yes Do You Have Access To A Gun?: No Health Problems: Yes Mental Health Diagnoses: Yes Substance Use Disorders: No Previous Attempt: Yes Previous Psychiatric Hospitalization: Yes Protective Factors Assessment Shinto Beliefs: Yes : No Responsible for Young Children: No Employed: No Interval History Chief Complaint "I felt some better yesterday". Review of Systems Sleep Information Total Hours of Sleep: 7 Meal Information Percent Meal Consumed - Breakfast: 75 Percent Meal Consumed - Lunch: 100 Percent Meal Consumed - Dinner: 100 Subjective Subjective Patient was seen & assessed and interval progress reviewed with nursing and social work. sensitive to noise and light but seemed more herself yesterday. Reports improved mood today. Denies medication side effects. Physical Exam Psychiatric Orientation: alert Apperance: appropriately groomed Eye Contact: + fair eye contact Motor Behavior: no abnormal motor movements Speech: normal rate/rhythm/volume of speech Affect: + constricted affect Mood: + anxious mood Thought Process: + concrete thought process Thought Content: + paranoid Suicidal Thoughts: denies suicidal thoughts Homicidal Thoughts: denies homicidal thoughts Hallucinations: no auditory hallucinations and no visual hallucinations Cognition: + attention not intact Vital Signs (Past 24 Hours) Last Vital Signs Temp 36.8 C 11/24/20 06:21 Pulse 102 H 11/24/20 06:22 Resp 14 11/24/20 06:21 BP 111/72 11/24/20 06:22 Pulse Ox 99 11/24/20 06:21 Results & Data ([facility]) Current Inpatient Medications Current Inpatient Medications: Current Inpatient Medications Acetaminophen (Acetaminophen 325 Mg Tab) 650 mg PO Q4H PRN PRN Reason: Headache or Minor Fever Stop: 12/21/20 01:14 Last Admin: 11/23/20 18:37 Dose: 650 mg Documented by: Al Hydrox/Mg Hydrox/Simethicone (Aluminum/Magnesium Susp 30 Ml Udc) 30 ml PO Q4H PRN PRN Reason: GI Upset Stop: 12/21/20 01:14 Albuterol (Albuterol Hfa 8 Gm Inhaler) 2 puffs INH QID PRN; Protocol PRN Reason: shortness of breath or wheezing or cough Stop: 12/21/20 08:30 Apixaban (Apixaban 5 Mg Tablet) 5 mg PO BID [facility] Stop: 12/21/20 08:59 Last Admin: 11/24/20 08:48 Dose: 5 mg Documented by: Aspirin (Aspirin 81 Mg Ectab) 81 mg PO DAILY [facility] Stop: 12/21/20 08:59 Last Admin: 11/24/20 08:48 Dose: 81 mg Documented by: Clonazepam (Clonazepam 0.5 Mg Tab) 0.5 mg PO BID PRN PRN Reason: Anxiety Stop: 12/21/20 11:58 Clonazepam (Clonazepam 0.5 Mg Tab) 0.5 mg PO DAILYBD [facility] Stop: 12/21/20 17:14 Last Admin: 11/23/20 16:58 Dose: 0.5 mg Documented by: Diltiazem HCl (Diltiazem Hcl 180 Mg Capcr) 180 mg PO QAM [facility] Stop: 12/21/20 08:59 Last Admin: 11/24/20 08:49 Dose: 180 mg Documented by: Docusate Sodium (Docusate Sodium 100 Mg Cap) 100 mg PO BID [facility] Stop: 12/21/20 11:59 Last Admin: 11/24/20 08:49 Dose: 100 mg Documented by: Duloxetine HCl (Duloxetine Hcl 20 Mg Cap) 20 mg PO QAM [facility] Stop: 12/23/20 09:29 Last Admin: 11/24/20 08:49 Dose: 20 mg Documented by: Ferrous Sulfate (Ferrous Sulfate 325 Mg Tab) 325 mg PO BIDM [facility] Stop: 12/21/20 18:24 Last Admin: 11/24/20 08:56 Dose: Not Given Documented by: Fish Oil ([place]-3 (Purified Fish Oil) 1 Gm Cap) 1 gm PO DAILY [facility] Stop: 12/21/20 09:44 Last Admin: 11/24/20 08:50 Dose: 1 gm Documented by: Gabapentin (Gabapentin 400 Mg Cap) 400 mg PO TID [facility] Stop: 12/21/20 08:59 Last Admin: 11/24/20 08:51 Dose: 400 mg Documented by: Ipratropium Helen (Ipratropium Helen Nasal [place] 0.06% 15ml) 2 sprays NA BID [facility] Stop: 12/21/20 08:59 Last Admin: 11/24/20 08:46 Dose: 2 sprays Documented by: Levothyroxine Sodium (Levothyroxine Sodium 88 Mcg Tablet) 88 mcg PO DAILYBB [facility] Stop: 12/21/20 07:59 Last Admin: 11/24/20 07:49 Dose: 88 mcg Documented by: Magnesium Hydroxide (Magnesium Hydroxide Susp 30 Ml Udc) 30 ml PO DAILY PRN PRN Reason: Constipation Stop: 12/21/20 01:14 Psyllium Hydrophilic Mucilloid (Psyllium 58.6% Powder Packet) 1 pkt PO QAM [facility] Stop: 11/26/20 08:59 Last Admin: 11/24/20 08:44 Dose: 1 pkt Documented by: Quetiapine Fumarate (Quetiapine Fumarate 200 Mg Tab) 200 mg PO DAILY [facility] Stop: 12/21/20 09:59 Last Admin: 11/24/20 08:52 Dose: 200 mg Documented by: Quetiapine Fumarate (Quetiapine Fumarate 200 Mg Tab) 400 mg PO [facility] Stop: 12/21/20 21:59 Last Admin: 11/23/20 20:50 Dose: 400 mg Documented by: Simvastatin (Simvastatin 40 Mg Tab) 40 mg PO [facility] Stop: 12/21/20 21:59 Last Admin: 11/23/20 20:50 Dose: 40 mg Documented by: Sodium Chloride (Sodium Chloride 0.65% Na Soln 45 Ml ([place])) 1 - 2 sprays NA PRN PRN PRN Reason: Nasal Dryness/Congestion Stop: 12/21/20 01:14 Last Admin: 11/23/20 15:12 Dose: 1 sprays Documented by: Trazodone HCl (Trazodone Hcl 100 Mg Tab) 100 mg PO [facility] Stop: 12/21/20 21:59 Last Admin: 11/23/20 20:50 Dose: 100 mg Documented by: Trimethoprim/Sulfamethoxazole (Sulfamethoxazole/Trimethoprim Ds 800/160mg Tab) 1 tab PO Q12 [facility] Stop: 12/21/20 08:59 Last Admin: 11/24/20 08:52 Dose: 1 tab Documented by: Umeclidinium Helen (Umeclidinium [place] 62.5mcg/Blister 7 Puffs/Inhaler) 1 puffs INH DAILY [facility]; Protocol Stop: 12/21/20 09:44 Last Admin: 11/24/20 08:44 Dose: 1 puffs Documented by: Mental Health & Subst Abuse Tx Psychiatrist Name of Psychiatrist: Velvet Sanchez Psychiatrist's Psychiatric Appointment Comment: [address] [facility] Fuel Attendant Name of Fuel Attendant: [employer] [facility] Phone Number for Fuel Attendant: [phone] Post Discharge Appointments Primary Care Physician Name Of Family Doctor: MAN - Dr. Lancaster (JADEN Olvera) Primary Care Provider Appointment Comment: [address] [place] [address] Roxanne Paredesefonte Specialist Name of Specialist: MAN Cardiology - Dr. Ga Villareal Phone Number for Specialist: [phone] Specialty Appointment Comment: [address] [facility], [address], [place] Contact Information Discharge
[2020-11-24] MEDS: clonazePAM 0.5 MG TAB PO SCH (17:09)
[2020-11-24] MEDS: SIMVASTATIN 40 MG TAB PO SCH (20:29)
[2020-11-24] MEDS: traZODone HCL 100 MG TAB PO SCH (20:30)
[2020-11-25] MEDS: LEVOTHYROXINE SODIUM 88 MCG TABLET PO SCH (09:14)
[2020-11-25] MEDS: ASPIRIN 81 MG ECTAB PO SCH (09:36)
[2020-11-25] MEDS: APIXABAN 5 MG TABLET PO SCH ×2 (09:37→20:31)
[2020-11-25] MEDS: dilTIAZem HCL 180 MG CAPCR PO SCH (09:37)
[2020-11-25] MEDS: DOCUSATE SODIUM 100 MG CAP PO SCH ×2 (09:37→20:31)
[2020-11-25] MEDS: DULoxetine HCL 20 MG CAP PO SCH (09:37)
[2020-11-25] MEDS: OMEGA-3 (PURIFIED FISH OIL) 1 GM CAP PO SCH (09:38)
[2020-11-25] MEDS: GABAPENTIN 400 MG CAP PO SCH ×3 (09:38→20:32)
[2020-11-25] MEDS: PSYLLIUM 58.6% POWDER PACKET PO SCH (09:38)
[2020-11-25] MEDS: IPRATROPIUM BROMIDE NASAL SPRAY 0.06% 15ML SCH ×2 (09:38→20:32)
[2020-11-25] MEDS: QUEtiapine FUMARATE 200 MG TAB PO SCH ×2 (09:40→20:32)
[2020-11-25] MEDS: UMECLIDINIUM BROMIDE 62.5MCG/BLISTER 7 PUFFS/INHALER INH SCH (09:41)
[2020-11-25] MEDS: SULFAMETHOXAZOLE/TRIMETHOPRIM DS 800/160MG TAB PO SCH ×2 (09:41→20:32)
[2020-11-25] MEDS: FERROUS SULFATE 325 MG TAB PO SCH ×2 (09:48→17:02)
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
[2020-11-25] MEDS: clonazePAM 0.5 MG TAB PO SCH (17:00)
[2020-11-25] MEDS: traZODone HCL 100 MG TAB PO SCH (20:33)
[2020-11-25] MEDS: SIMVASTATIN 40 MG TAB PO SCH (20:33)
[2020-11-26] MEDS: UMECLIDINIUM BROMIDE 62.5MCG/BLISTER 7 PUFFS/INHALER INH SCH (08:10)
[2020-11-26] MEDS: LEVOTHYROXINE SODIUM 88 MCG TABLET PO SCH (08:10)
[2020-11-26] MEDS: IPRATROPIUM BROMIDE NASAL SPRAY 0.06% 15ML SCH ×2 (08:11→20:37)
[2020-11-26] MEDS: APIXABAN 5 MG TABLET PO SCH ×2 (09:38→20:36)
[2020-11-26] MEDS: ASPIRIN 81 MG ECTAB PO SCH (09:38)
[2020-11-26] MEDS: FERROUS SULFATE 325 MG TAB PO SCH ×2 (09:43→17:03)
[2020-11-26] MEDS: OMEGA-3 (PURIFIED FISH OIL) 1 GM CAP PO SCH (09:43)
[2020-11-26] MEDS: GABAPENTIN 400 MG CAP PO SCH ×3 (09:43→20:36)
[2020-11-26] MEDS: SULFAMETHOXAZOLE/TRIMETHOPRIM DS 800/160MG TAB PO SCH ×2 (09:43→20:36)
[2020-11-26] MEDS: DULoxetine HCL 20 MG CAP PO SCH (09:44)
[2020-11-26] MEDS: DOCUSATE SODIUM 100 MG CAP PO SCH ×2 (09:44→20:36)
[2020-11-26] MEDS: dilTIAZem HCL 180 MG CAPCR PO SCH ×2 (09:44→13:05)
[2020-11-26] MEDS: QUEtiapine FUMARATE 200 MG TAB PO SCH ×2 (09:46→20:36)
[2020-11-26] MEDS: PSYLLIUM 58.6% POWDER PACKET PO SCH (12:44)
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
[2020-11-26] MEDS: clonazePAM 0.5 MG TAB PO SCH (17:03)
[2020-11-26] MEDS: traZODone HCL 100 MG TAB PO SCH (20:36)
[2020-11-26] MEDS: SIMVASTATIN 40 MG TAB PO SCH (20:36)
[2020-11-27] MEDS: LEVOTHYROXINE SODIUM 88 MCG TABLET PO SCH (07:59)
[2020-11-27] MEDS: DULoxetine HCL 20 MG CAP PO SCH (09:06)
[2020-11-27] MEDS: ASPIRIN 81 MG ECTAB PO SCH (09:06)
[2020-11-27] MEDS: SULFAMETHOXAZOLE/TRIMETHOPRIM DS 800/160MG TAB PO SCH ×2 (09:06→20:34)
[2020-11-27] MEDS: dilTIAZem HCL 180 MG CAPCR PO SCH (09:06)
[2020-11-27] MEDS: GABAPENTIN 400 MG CAP PO SCH ×3 (09:07→20:33)
[2020-11-27] MEDS: DOCUSATE SODIUM 100 MG CAP PO SCH ×2 (09:07→20:33)
[2020-11-27] MEDS: UMECLIDINIUM BROMIDE 62.5MCG/BLISTER 7 PUFFS/INHALER INH SCH (09:07)
[2020-11-27] MEDS: APIXABAN 5 MG TABLET PO SCH ×2 (09:07→20:32)
[2020-11-27] MEDS: IPRATROPIUM BROMIDE NASAL SPRAY 0.06% 15ML SCH ×2 (09:07→20:33)
[2020-11-27] MEDS: QUEtiapine FUMARATE 200 MG TAB PO SCH ×2 (09:07→20:34)
[2020-11-27] MEDS: OMEGA-3 (PURIFIED FISH OIL) 1 GM CAP PO SCH (09:07)
[2020-11-27] MEDS: FERROUS SULFATE 325 MG TAB PO SCH ×2 (09:07→17:10)
[2020-11-27] MEDS: PSYLLIUM 58.6% POWDER PACKET PO SCH (09:07)
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
[2020-11-27] MEDS: clonazePAM 0.5 MG TAB PO SCH (17:10)
[2020-11-27] MEDS: SIMVASTATIN 40 MG TAB PO SCH (20:35)
[2020-11-27] MEDS: traZODone HCL 100 MG TAB PO SCH (20:36)
[2020-11-28] MEDS: LEVOTHYROXINE SODIUM 88 MCG TABLET PO SCH (07:27)
[2020-11-28] MEDS: APIXABAN 5 MG TABLET PO SCH ×2 (08:42→20:41)
[2020-11-28] MEDS: ASPIRIN 81 MG ECTAB PO SCH (08:43)
[2020-11-28] MEDS: DULoxetine HCL 20 MG CAP PO SCH (08:43)
[2020-11-28] MEDS: OMEGA-3 (PURIFIED FISH OIL) 1 GM CAP PO SCH (08:43)
[2020-11-28] MEDS: DOCUSATE SODIUM 100 MG CAP PO SCH ×2 (08:43→20:42)
[2020-11-28] MEDS: UMECLIDINIUM BROMIDE 62.5MCG/BLISTER 7 PUFFS/INHALER INH SCH (08:43)
[2020-11-28] MEDS: GABAPENTIN 400 MG CAP PO SCH ×3 (08:43→20:39)
[2020-11-28] MEDS: FERROUS SULFATE 325 MG TAB PO SCH ×2 (08:43→17:19)
[2020-11-28] MEDS: QUEtiapine FUMARATE 200 MG TAB PO SCH ×2 (08:44→20:40)
[2020-11-28] MEDS: SULFAMETHOXAZOLE/TRIMETHOPRIM DS 800/160MG TAB PO SCH ×2 (08:44→20:41)
[2020-11-28] MEDS: IPRATROPIUM BROMIDE NASAL SPRAY 0.06% 15ML SCH ×2 (08:44→20:42)
[2020-11-28] MEDS: PSYLLIUM 58.6% POWDER PACKET PO SCH (08:44)
[2020-11-28] MEDS: dilTIAZem HCL 180 MG CAPCR PO SCH (08:52)
[2020-11-28 10:07] LABS: Basophils # (auto) 0.03 K/uL (0-0.2); Basophils % (auto) 0.5 %; Eosinophils # (auto) 0.05 K/uL (0-0.5); Eosinophils % (auto) 0.9 %; Hematocrit (blood only) 37.1 % (37-47); Hemoglobin 12.2 g/dL (12.0-16.0); Immature Granulocytes # (auto) 0.01 K/uL (0.00-0.02); Immature Granulocytes % (auto) 0.2 %; Lymphocytes # (auto) 1.01 K/uL (1.2-3.4); Lymphocytes % (auto) 18.3 %; Mean Corpuscular Hgb Conc 32.9 g/dL (32-36); Mean Corpuscular Volume 94.4 fL (80-100); Monocytes # (auto) 0.27 K/uL (0.11-0.59); Monocytes % (auto) 4.9 %; Neutrophils # (auto) 4.16 K/uL (1.4-6.5); Neutrophils % (auto) 75.2 %; Platelet Count 222 K/uL (130-400); RDW Standard Deviation 48.6 fL (36.4-46.3); Red Blood Count 3.93 M/uL (4.2-5.4); White Blood Count 5.53 K/uL (4.8-10.8)
[2020-11-28 10:36] LABS: Alanine Aminotransferase 24 U/L (12-78); Albumin Level 3.6 gm/dl (3.4-5.0); Aspartate Aminotransferase 19 U/L (15-37); BUN Creatinine Ratio 14.5 (10-20); Blood Urea Nitrogen 13 mg/dl (7-18); Calcium 9.2 mg/dl (8.5-10.1); Carbon Dioxide 25 mmol/L (21-32); Chloride 103 mmol/L (98-107); Est GFR (African American) 81.1 ml/min; Glucose 164 mg/dl (70-99); Potassium 4.2 mmol/L (3.5-5.1); Sodium 135 mmol/L (136-145)
[2020-11-28 10:39] LABS: Albumin Globulin Ratio 0.9 (0.9-2); Alkaline Phosphatase 133 U/L (45-117); Bilirubin,Total 0.2 mg/dl (0.2-1); Globulin 3.9 gm/dl (2.5-4.0); Total Protein 7.5 gm/dl (6.4-8.2)
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
[2020-11-28] MEDS: clonazePAM 0.5 MG TAB PO SCH (17:19)
[2020-11-28] MEDS: traZODone HCL 100 MG TAB PO SCH (20:38)
[2020-11-28] MEDS: SIMVASTATIN 40 MG TAB PO SCH (20:39)
[2020-11-29] MEDS: dilTIAZem HCL 180 MG CAPCR PO SCH (09:30)
[2020-11-29] MEDS: DOCUSATE SODIUM 100 MG CAP PO SCH ×2 (09:30→21:05)
[2020-11-29] MEDS: LEVOTHYROXINE SODIUM 88 MCG TABLET PO SCH (09:30)
[2020-11-29] MEDS: APIXABAN 5 MG TABLET PO SCH ×2 (09:30→21:05)
[2020-11-29] MEDS: ASPIRIN 81 MG ECTAB PO SCH (09:30)
[2020-11-29] MEDS: OMEGA-3 (PURIFIED FISH OIL) 1 GM CAP PO SCH (09:31)
[2020-11-29] MEDS: GABAPENTIN 400 MG CAP PO SCH ×3 (09:31→21:05)
[2020-11-29] MEDS: SULFAMETHOXAZOLE/TRIMETHOPRIM DS 800/160MG TAB PO SCH ×2 (09:31→21:06)
[2020-11-29] MEDS: FERROUS SULFATE 325 MG TAB PO SCH ×2 (09:31→17:23)
[2020-11-29] MEDS: DULoxetine HCL 20 MG CAP PO SCH (09:31)
[2020-11-29] MEDS: UMECLIDINIUM BROMIDE 62.5MCG/BLISTER 7 PUFFS/INHALER INH SCH (09:32)
[2020-11-29] MEDS: QUEtiapine FUMARATE 200 MG TAB PO SCH ×2 (09:32→21:06)
[2020-11-29] MEDS: PSYLLIUM 58.6% POWDER PACKET PO SCH (09:32)
[2020-11-29] MEDS: IPRATROPIUM BROMIDE NASAL SPRAY 0.06% 15ML SCH ×2 (09:33→21:05)
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
[2020-11-29] MEDS: clonazePAM 0.5 MG TAB PO SCH (17:23)
[2020-11-29] MEDS: SIMVASTATIN 40 MG TAB PO SCH (21:06)
[2020-11-29] MEDS: traZODone HCL 100 MG TAB PO SCH (21:06)
[2020-11-29] MEDS: ALUMINUM/MAGNESIUM SUSP 30 ML UDC PO PRN (22:40)
[2020-11-30] MEDS: OMEGA-3 (PURIFIED FISH OIL) 1 GM CAP PO SCH (09:19)
[2020-11-30] MEDS: ASPIRIN 81 MG ECTAB PO SCH (09:19)
[2020-11-30] MEDS: dilTIAZem HCL 180 MG CAPCR PO SCH (09:19)
[2020-11-30] MEDS: DOCUSATE SODIUM 100 MG CAP PO SCH ×2 (09:19→21:59)
[2020-11-30] MEDS: SULFAMETHOXAZOLE/TRIMETHOPRIM DS 800/160MG TAB PO SCH ×2 (09:19→21:59)
[2020-11-30] MEDS: GABAPENTIN 400 MG CAP PO SCH ×3 (09:19→21:59)
[2020-11-30] MEDS: APIXABAN 5 MG TABLET PO SCH ×2 (09:19→21:59)
[2020-11-30] MEDS: QUEtiapine FUMARATE 200 MG TAB PO SCH ×2 (09:19→21:58)
[2020-11-30] MEDS: PSYLLIUM 58.6% POWDER PACKET PO SCH (09:20)
[2020-11-30] MEDS: LEVOTHYROXINE SODIUM 88 MCG TABLET PO SCH (09:20)
[2020-11-30] MEDS: DULoxetine HCL 20 MG CAP PO SCH (09:20)
[2020-11-30] MEDS: UMECLIDINIUM BROMIDE 62.5MCG/BLISTER 7 PUFFS/INHALER INH SCH (09:20)
[2020-11-30] MEDS: FERROUS SULFATE 325 MG TAB PO SCH ×2 (09:20→18:41)
[2020-11-30] MEDS: IPRATROPIUM BROMIDE NASAL SPRAY 0.06% 15ML SCH ×2 (09:20→22:00)
[2020-11-30] MEDS: ACETAMINOPHEN 325 MG TAB PO PRN (09:22)
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
[2020-11-30] MEDS: clonazePAM 0.5 MG TAB PO SCH (18:40)
[2020-11-30] MEDS: SIMVASTATIN 40 MG TAB PO SCH (21:59)
[2020-11-30] MEDS: traZODone HCL 100 MG TAB PO SCH (21:59)
[2020-12-01] MEDS: ASPIRIN 81 MG ECTAB PO SCH (09:55)
[2020-12-01] MEDS: LEVOTHYROXINE SODIUM 88 MCG TABLET PO SCH (09:55)
[2020-12-01] MEDS: APIXABAN 5 MG TABLET PO SCH ×2 (09:55→22:09)
[2020-12-01] MEDS: OMEGA-3 (PURIFIED FISH OIL) 1 GM CAP PO SCH (09:55)
[2020-12-01] MEDS: FERROUS SULFATE 325 MG TAB PO SCH ×2 (09:56→17:19)
[2020-12-01] MEDS: DULoxetine HCL 20 MG CAP PO SCH (09:56)
[2020-12-01] MEDS: DOCUSATE SODIUM 100 MG CAP PO SCH ×2 (09:56→22:09)
[2020-12-01] MEDS: GABAPENTIN 400 MG CAP PO SCH ×3 (09:57→22:09)
[2020-12-01] MEDS: dilTIAZem HCL 180 MG CAPCR PO SCH (09:57)
[2020-12-01] MEDS: QUEtiapine FUMARATE 200 MG TAB PO SCH ×2 (09:57→22:06)
[2020-12-01] MEDS: PSYLLIUM 58.6% POWDER PACKET PO SCH (09:58)
[2020-12-01] MEDS: UMECLIDINIUM BROMIDE 62.5MCG/BLISTER 7 PUFFS/INHALER INH SCH (09:58)
[2020-12-01] MEDS: SULFAMETHOXAZOLE/TRIMETHOPRIM DS 800/160MG TAB PO SCH ×2 (09:58→22:07)
[2020-12-01] MEDS: IPRATROPIUM BROMIDE NASAL SPRAY 0.06% 15ML SCH ×2 (09:58→22:09)
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
[2020-12-01] MEDS: clonazePAM 0.5 MG TAB PO SCH (17:17)
[2020-12-01] MEDS: ACETAMINOPHEN 325 MG TAB PO PRN (17:17)
[2020-12-01] MEDS: traZODone HCL 100 MG TAB PO SCH (22:08)
[2020-12-01] MEDS: SIMVASTATIN 40 MG TAB PO SCH (22:08)
[2020-12-02] MEDS: LEVOTHYROXINE SODIUM 88 MCG TABLET PO SCH (07:49)
[2020-12-02] MEDS: DOCUSATE SODIUM 100 MG CAP PO SCH ×2 (08:50→21:13)
[2020-12-02] MEDS: ASPIRIN 81 MG ECTAB PO SCH (08:51)
[2020-12-02] MEDS: APIXABAN 5 MG TABLET PO SCH ×2 (08:51→21:13)
[2020-12-02] MEDS: GABAPENTIN 400 MG CAP PO SCH ×3 (08:51→21:14)
[2020-12-02] MEDS: DULoxetine HCL 20 MG CAP PO SCH (08:52)
[2020-12-02] MEDS: FERROUS SULFATE 325 MG TAB PO SCH ×2 (08:53→17:19)
[2020-12-02] MEDS: OMEGA-3 (PURIFIED FISH OIL) 1 GM CAP PO SCH (08:53)
[2020-12-02] MEDS: QUEtiapine FUMARATE 200 MG TAB PO SCH ×2 (08:53→21:14)
[2020-12-02] MEDS: SULFAMETHOXAZOLE/TRIMETHOPRIM DS 800/160MG TAB PO SCH ×2 (08:54→21:14)
[2020-12-02] MEDS: PSYLLIUM 58.6% POWDER PACKET PO SCH (09:58)
[2020-12-02] MEDS: UMECLIDINIUM BROMIDE 62.5MCG/BLISTER 7 PUFFS/INHALER INH SCH (09:59)
[2020-12-02] MEDS: IPRATROPIUM BROMIDE NASAL SPRAY 0.06% 15ML SCH ×2 (09:59→21:14)
[2020-12-02] MEDS: dilTIAZem HCL 180 MG CAPCR PO SCH (10:24)
[2020-12-02] MEDS: ACETAMINOPHEN 325 MG TAB PO PRN (13:25)
--- NOTE | 2020-12-02 13:54 | Psychiatric Progress Note ---
Date of Service December 02, 2020 Impression / Recommendations Impression 60 yo female with schizophrenia, increasingly depressed [facility]. Plan: offer biotene for dry mouth, Cymbalta recently increased so will monitor PO intake and order repeat labs if remains poor with staff interventions. Risk Factors Assessment Male: No : Yes Do You Have Access To A Gun?: No Health Problems: Yes Mental Health Diagnoses: Yes Substance Use Disorders: No Previous Attempt: Yes Previous Psychiatric Hospitalization: Yes Protective Factors Assessment Christianity Beliefs: Yes : No Responsible for Young Children: No Employed: No Interval History Chief Complaint "I just don't feel like doing much". Review of Systems Sleep Information Total Hours of Sleep: 6.5 Meal Information Percent Meal Consumed - Breakfast: 100 Percent Meal Consumed - Lunch: 0 Percent Meal Consumed - Dinner: 0 Nutrition Comment: Pt declined to eat dinner or snacks despite staff prompting Subjective Subjective Patient was seen & assessed and interval progress reviewed with treatment team. Awaiting medical determination from [facility]. has been more reclusive again to room, less interest in activities, even fireworks last night though generally doesn't like loud noises. Told staff her whole body feels dry. Clarified that mainly some dry mouth since restarting Cymbalta. Physical Exam Psychiatric Orientation: + guarded Apperance: + disheveled Eye Contact: + poor eye contact nonspontaneous in conversation. Affect: + depressed affect Mood: + depressed mood Thought Process: + concrete thought process Thought Content: + paranoid Suicidal Thoughts: denies suicidal thoughts Homicidal Thoughts: denies homicidal thoughts Hallucinations: no auditory hallucinations and no visual hallucinations Vital Signs (Past 24 Hours) Last Vital Signs Temp 36.4 C L 12/02/20 10:23 Pulse 88 12/02/20 10:23 Resp 16 12/02/20 06:38 BP 104/64 12/02/20 10:23 Pulse Ox 98 12/02/20 10:23 Results & Data ([facility]) Current Inpatient Medications Current Inpatient Medications: Current Inpatient Medications Acetaminophen (Acetaminophen 325 Mg Tab) 650 mg PO Q4H PRN PRN Reason: Headache or Minor Fever Stop: 12/21/20 01:14 Last Admin: 12/02/20 13:25 Dose: 650 mg Documented by: Al Hydrox/Mg Hydrox/Simethicone (Aluminum/Magnesium Susp 30 Ml Udc) 30 ml PO Q4H PRN PRN Reason: GI Upset Stop: 12/21/20 01:14 Last Admin: 11/29/20 22:40 Dose: 30 ml Documented by: Albuterol (Albuterol Hfa 8 Gm Inhaler) 2 puffs INH QID PRN; Protocol PRN Reason: shortness of breath or wheezing or cough Stop: 12/21/20 08:30 Apixaban (Apixaban 5 Mg Tablet) 5 mg PO BID [facility] Stop: 12/21/20 08:59 Last Admin: 12/02/20 08:51 Dose: 5 mg Documented by: Aspirin (Aspirin 81 Mg Ectab) 81 mg PO DAILY [facility] Stop: 12/21/20 08:59 Last Admin: 12/02/20 08:51 Dose: 81 mg Documented by: Clonazepam (Clonazepam 0.5 Mg Tab) 0.5 mg PO BID PRN PRN Reason: Anxiety Stop: 12/21/20 11:58 Clonazepam (Clonazepam 0.5 Mg Tab) 0.5 mg PO DAILYBD [facility] Stop: 12/21/20 17:14 Last Admin: 12/01/20 17:17 Dose: 0.5 mg Documented by: Diltiazem HCl (Diltiazem Hcl 180 Mg Capcr) 180 mg PO QAM [facility] Stop: 12/21/20 08:59 Last Admin: 12/02/20 10:24 Dose: 180 mg Documented by: Docusate Sodium (Docusate Sodium 100 Mg Cap) 100 mg PO BID [facility] Stop: 12/21/20 11:59 Last Admin: 12/02/20 08:50 Dose: 100 mg Documented by: Duloxetine HCl (Duloxetine Hcl 20 Mg Cap) 40 mg PO QAM [facility] Stop: 12/29/20 08:59 Last Admin: 12/02/20 08:52 Dose: 40 mg Documented by: Ferrous Sulfate (Ferrous Sulfate 325 Mg Tab) 325 mg PO BIDM [facility] Stop: 12/21/20 18:24 Last Admin: 12/02/20 08:53 Dose: 325 mg Documented by: Fish Oil ([place]-3 (Purified Fish Oil) 1 Gm Cap) 1 gm PO DAILY [facility] Stop: 12/21/20 09:44 Last Admin: 12/02/20 08:53 Dose: 1 gm Documented by: Gabapentin (Gabapentin 400 Mg Cap) 400 mg PO TID [facility] Stop: 12/21/20 08:59 Last Admin: 12/02/20 13:24 Dose: 400 mg Documented by: Ipratropium [place] (Ipratropium [place] Nasal [place] 0.06% 15ml) 2 sprays NA BID [facility] Stop: 12/21/20 08:59 Last Admin: 12/02/20 09:59 Dose: 2 sprays Documented by: Levothyroxine Sodium (Levothyroxine Sodium 88 Mcg Tablet) 88 mcg PO DAILYBB [facility] Stop: 12/21/20 07:59 Last Admin: 12/02/20 07:49 Dose: 88 mcg Documented by: Magnesium Hydroxide (Magnesium Hydroxide Susp 30 Ml Udc) 30 ml PO DAILY PRN PRN Reason: Constipation Stop: 12/21/20 01:14 Psyllium Hydrophilic Mucilloid (Psyllium 58.6% Powder Packet) 1 pkt PO QAM [facility] Stop: 12/26/20 11:29 Last Admin: 12/02/20 09:58 Dose: 1 pkt Documented by: Quetiapine Fumarate (Quetiapine Fumarate 200 Mg Tab) 200 mg PO DAILY [facility] Stop: 12/21/20 09:59 Last Admin: 12/02/20 08:53 Dose: 200 mg Documented by: Quetiapine Fumarate (Quetiapine Fumarate 200 Mg Tab) 400 mg PO [facility] Stop: 12/21/20 21:59 Last Admin: 12/01/20 22:06 Dose: 400 mg Documented by: Simvastatin (Simvastatin 40 Mg Tab) 40 mg PO [facility] Stop: 12/21/20 21:59 Last Admin: 12/01/20 22:08 Dose: 40 mg Documented by: Sodium Chloride (Sodium Chloride 0.65% Na Soln 45 Ml ([place])) 1 - 2 sprays NA PRN PRN PRN Reason: Nasal Dryness/Congestion Stop: 12/21/20 01:14 Last Admin: 11/23/20 15:12 Dose: 1 sprays Documented by: Trazodone HCl (Trazodone Hcl 100 Mg Tab) 100 mg PO [facility] Stop: 12/21/20 21:59 Last Admin: 12/01/20 22:08 Dose: 100 mg Documented by: Trimethoprim/Sulfamethoxazole (Sulfamethoxazole/Trimethoprim Ds 800/160mg Tab) 1 tab PO Q12 [facility] Stop: 12/21/20 08:59 Last Admin: 12/02/20 08:54 Dose: 1 tab Documented by: Umeclidinium [place] (Umeclidinium [place] 62.5mcg/Blister 7 Puffs/Inhaler) 1 puffs INH DAILY [facility]; Protocol Stop: 12/21/20 09:44 Last Admin: 12/02/20 09:59 Dose: 1 puffs Documented by: Mental Health & Subst Abuse Tx Psychiatrist Name of Psychiatrist: Velvet Sanchez Psychiatrist's Psychiatric Appointment Comment: [address] [facility] Primary Health Care Nurse Name of Primary Health Care Nurse: [facility] Phone Number for Primary Health Care Nurse: [phone] Post Discharge Appointments Primary Care Physician Name Of Family Doctor: MAN - Dr. Lancaster (May, BENJAC) Primary Care Provider Appointment Comment: [address] [place] [address] Corey Paredes Specialist Name of Specialist: MAN Cardiology - Dr. Ga Villareal Phone Number for Specialist: [phone] Specialty Appointment Comment: [address] [facility], [address], [place] Contact Information Discharge
[2020-12-02] MEDS: clonazePAM 0.5 MG TAB PO SCH (17:19)
[2020-12-02] MEDS: traZODone HCL 100 MG TAB PO SCH (21:13)
[2020-12-02] MEDS: SIMVASTATIN 40 MG TAB PO SCH (21:14)
[2020-12-03] MEDS: PSYLLIUM 58.6% POWDER PACKET PO SCH (08:37)
[2020-12-03] MEDS: ASPIRIN 81 MG ECTAB PO SCH (08:38)
[2020-12-03] MEDS: LEVOTHYROXINE SODIUM 88 MCG TABLET PO SCH (08:38)
[2020-12-03] MEDS: APIXABAN 5 MG TABLET PO SCH ×2 (08:38→21:01)
[2020-12-03] MEDS: DOCUSATE SODIUM 100 MG CAP PO SCH ×2 (08:39→21:01)
[2020-12-03] MEDS: OMEGA-3 (PURIFIED FISH OIL) 1 GM CAP PO SCH (08:40)
[2020-12-03] MEDS: DULoxetine HCL 20 MG CAP PO SCH (08:40)
[2020-12-03] MEDS: FERROUS SULFATE 325 MG TAB PO SCH ×2 (08:40→17:21)
[2020-12-03] MEDS: GABAPENTIN 400 MG CAP PO SCH ×3 (08:41→21:01)
[2020-12-03] MEDS: QUEtiapine FUMARATE 200 MG TAB PO SCH ×2 (08:41→21:00)
[2020-12-03] MEDS: SULFAMETHOXAZOLE/TRIMETHOPRIM DS 800/160MG TAB PO SCH ×2 (08:41→21:00)
[2020-12-03] MEDS: IPRATROPIUM BROMIDE NASAL SPRAY 0.06% 15ML SCH ×2 (08:42→21:02)
[2020-12-03] MEDS: UMECLIDINIUM BROMIDE 62.5MCG/BLISTER 7 PUFFS/INHALER INH SCH (08:42)
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
[2020-12-03 11:32] LABS: BUN Creatinine Ratio 14.5 (10-20); Blood Urea Nitrogen 12 mg/dl (7-18); Carbon Dioxide 29 mmol/L (21-32); Chloride 102 mmol/L (98-107); Est GFR (African American) 92.1 ml/min; Est GFR (Non-African American) 79.5 ml/min; Glucose 136 mg/dl (70-99); Potassium 4.1 mmol/L (3.5-5.1); Sodium 135 mmol/L (136-145)
[2020-12-03] MEDS: dilTIAZem HCL 180 MG CAPCR PO SCH (13:35)
[2020-12-03] MEDS: ACETAMINOPHEN 325 MG TAB PO PRN (13:36)
[2020-12-03] MEDS: clonazePAM 0.5 MG TAB PO SCH (17:21)
[2020-12-03] MEDS: SIMVASTATIN 40 MG TAB PO SCH (21:01)
[2020-12-03] MEDS: traZODone HCL 100 MG TAB PO SCH (21:01)
[2020-12-04] MEDS: APIXABAN 5 MG TABLET PO SCH ×2 (08:58→21:34)
[2020-12-04] MEDS: ASPIRIN 81 MG ECTAB PO SCH (08:58)
[2020-12-04] MEDS: LEVOTHYROXINE SODIUM 88 MCG TABLET PO SCH (08:58)
[2020-12-04] MEDS: OMEGA-3 (PURIFIED FISH OIL) 1 GM CAP PO SCH (08:59)
[2020-12-04] MEDS: DULoxetine HCL 60 MG CAP PO SCH (08:59)
[2020-12-04] MEDS: FERROUS SULFATE 325 MG TAB PO SCH ×2 (08:59→17:37)
[2020-12-04] MEDS: PSYLLIUM 58.6% POWDER PACKET PO SCH (08:59)
[2020-12-04] MEDS: DOCUSATE SODIUM 100 MG CAP PO SCH ×2 (08:59→21:33)
[2020-12-04] MEDS: dilTIAZem HCL 180 MG CAPCR PO SCH (08:59)
[2020-12-04] MEDS: GABAPENTIN 400 MG CAP PO SCH ×3 (08:59→21:33)
[2020-12-04] MEDS: SULFAMETHOXAZOLE/TRIMETHOPRIM DS 800/160MG TAB PO SCH ×2 (09:00→21:34)
[2020-12-04] MEDS: QUEtiapine FUMARATE 200 MG TAB PO SCH ×2 (09:00→21:36)
[2020-12-04] MEDS: IPRATROPIUM BROMIDE NASAL SPRAY 0.06% 15ML SCH ×2 (10:03→21:35)
[2020-12-04] MEDS: UMECLIDINIUM BROMIDE 62.5MCG/BLISTER 7 PUFFS/INHALER INH SCH (10:04)
--- NOTE | 2020-12-04 10:05 | Psychiatric Progress Note ---
Date of Service December 04, 2020 Impression / Recommendations Impression 60 yo female with schizophrenia, increasingly depressed awaiting state hospital placement. Plan: offer biotene for dry mouth, Cymbalta recently increased to address depressive symptoms related to length of stay and fibromyalgia hx. Imp: improved today. Plan: State hospital acceptance pending, repeat CXR given hx of pneumonia. Risk Factors Assessment Male: No : Yes Do You Have Access To A Gun?: No Health Problems: Yes Mental Health Diagnoses: Yes Substance Use Disorders: No Previous Attempt: Yes Previous Psychiatric Hospitalization: Yes Protective Factors Assessment Spiritism Beliefs: Yes : No Responsible for Young Children: No Employed: No Interval History Chief Complaint "I'm feeling better today". Review of Systems Sleep Information Total Hours of Sleep: 6.5 Meal Information Percent Meal Consumed - Breakfast: 90 Percent Meal Consumed - Lunch: 100 Percent Meal Consumed - Dinner: 100 Subjective Subjective Patient was seen & assessed and interval progress reviewed with nursing and social work. PO intake improved spontaneously, more social with peers last pm. Up for breakfast well dressed this am. No c/o cought/sob/pain at this time. Physical Exam Psychiatric Orientation: alert Apperance: appropriately groomed Eye Contact: + fair eye contact Motor Behavior: no abnormal motor movements Speech: normal rate/rhythm/volume of speech Affect: euthymic affect Mood: + anxious mood Thought Process: + concrete thought process Thought Content: + paranoid Suicidal Thoughts: denies suicidal thoughts Homicidal Thoughts: denies homicidal thoughts Hallucinations: no auditory hallucinations and no visual hallucinations Vital Signs (Past 24 Hours) Last Vital Signs Temp 36.7 C 12/04/20 06:31 Pulse 89 12/04/20 06:32 Resp 16 12/04/20 06:31 BP 98/62 L 12/04/20 06:32 Pulse Ox 100 12/03/20 13:31 Results & Data ([facility]) Laboratory Results Laboratory Results - last 24 hr 12/03/20 10:57 Sodium 135 L Potassium 4.1 Chloride 102 Carbon Dioxide 29 Anion Gap 4.0 BUN 12 Creatinine 0.81 Est Cr Clr Drug Dosing Not Reportable Est GFR ( Amer) 92.1 Est GFR (Non-Af Amer) 79.5 BUN/Creatinine Ratio 14.5 Glucose 136 H Calcium 9.0 Current Inpatient Medications Current Inpatient Medications: Current Inpatient Medications Acetaminophen (Acetaminophen 325 Mg Tab) 650 mg PO Q4H PRN PRN Reason: Headache or Minor Fever Stop: 12/21/20 01:14 Last Admin: 12/03/20 13:36 Dose: 650 mg Documented by: Al Hydrox/Mg Hydrox/Simethicone (Aluminum/Magnesium Susp 30 Ml Udc) 30 ml PO Q4H PRN PRN Reason: GI Upset Stop: 12/21/20 01:14 Last Admin: 11/29/20 22:40 Dose: 30 ml Documented by: Albuterol (Albuterol Hfa 8 Gm Inhaler) 2 puffs INH QID PRN; Protocol PRN Reason: shortness of breath or wheezing or cough Stop: 12/21/20 08:30 Apixaban (Apixaban 5 Mg Tablet) 5 mg PO BID [facility] Stop: 12/21/20 08:59 Last Admin: 12/04/20 08:58 Dose: 5 mg Documented by: Aspirin (Aspirin 81 Mg Ectab) 81 mg PO DAILY [facility] Stop: 12/21/20 08:59 Last Admin: 12/04/20 08:58 Dose: 81 mg Documented by: Clonazepam (Clonazepam 0.5 Mg Tab) 0.5 mg PO BID PRN PRN Reason: Anxiety Stop: 12/21/20 11:58 Clonazepam (Clonazepam 0.5 Mg Tab) 0.5 mg PO DAILYBD [facility] Stop: 12/21/20 17:14 Last Admin: 12/03/20 17:21 Dose: 0.5 mg Documented by: Diltiazem HCl (Diltiazem Hcl 180 Mg Capcr) 180 mg PO QAM [facility] Stop: 12/21/20 08:59 Last Admin: 12/04/20 08:59 Dose: 180 mg Documented by: Docusate Sodium (Docusate Sodium 100 Mg Cap) 100 mg PO BID [facility] Stop: 12/21/20 11:59 Last Admin: 12/04/20 08:59 Dose: 100 mg Documented by: Duloxetine HCl (Duloxetine Hcl 60 Mg Cap) 60 mg PO QAM [facility] Stop: 01/03/21 08:59 Last Admin: 12/04/20 08:59 Dose: 60 mg Documented by: Ferrous Sulfate (Ferrous Sulfate 325 Mg Tab) 325 mg PO BIDM [facility] Stop: 12/21/20 18:24 Last Admin: 12/04/20 08:59 Dose: 325 mg Documented by: Fish Oil ([place]-3 (Purified Fish Oil) 1 Gm Cap) 1 gm PO DAILY [facility] Stop: 12/21/20 09:44 Last Admin: 12/04/20 08:59 Dose: 1 gm Documented by: Gabapentin (Gabapentin 400 Mg Cap) 400 mg PO TID [facility] Stop: 12/21/20 08:59 Last Admin: 12/04/20 08:59 Dose: 400 mg Documented by: Ipratropium [place] (Ipratropium [place] Nasal [place] 0.06% 15ml) 2 sprays NA BID [facility] Stop: 12/21/20 08:59 Last Admin: 12/03/20 21:02 Dose: 2 sprays Documented by: Levothyroxine Sodium (Levothyroxine Sodium 88 Mcg Tablet) 88 mcg PO DAILYBB [facility] Stop: 12/21/20 07:59 Last Admin: 12/04/20 08:58 Dose: 88 mcg Documented by: Magnesium Hydroxide (Magnesium Hydroxide Susp 30 Ml Udc) 30 ml PO DAILY PRN PRN Reason: Constipation Stop: 12/21/20 01:14 Psyllium Hydrophilic Mucilloid (Psyllium 58.6% Powder Packet) 1 pkt PO QAM [facility] Stop: 12/26/20 11:29 Last Admin: 12/04/20 08:59 Dose: 1 pkt Documented by: Quetiapine Fumarate (Quetiapine Fumarate 200 Mg Tab) 200 mg PO DAILY [facility] Stop: 12/21/20 09:59 Last Admin: 12/04/20 09:00 Dose: 200 mg Documented by: Quetiapine Fumarate (Quetiapine Fumarate 200 Mg Tab) 400 mg PO [facility] Stop: 12/21/20 21:59 Last Admin: 12/03/20 21:00 Dose: 400 mg Documented by: Simvastatin (Simvastatin 40 Mg Tab) 40 mg PO [facility] Stop: 12/21/20 21:59 Last Admin: 12/03/20 21:01 Dose: 40 mg Documented by: Sodium Chloride (Sodium Chloride 0.65% Na Soln 45 Ml ([place])) 1 - 2 sprays NA PRN PRN PRN Reason: Nasal Dryness/Congestion Stop: 12/21/20 01:14 Last Admin: 11/23/20 15:12 Dose: 1 sprays Documented by: Trazodone HCl (Trazodone Hcl 100 Mg Tab) 100 mg PO [facility] Stop: 12/21/20 21:59 Last Admin: 12/03/20 21:01 Dose: 100 mg Documented by: Trimethoprim/Sulfamethoxazole (Sulfamethoxazole/Trimethoprim Ds 800/160mg Tab) 1 tab PO Q12 [facility] Stop: 12/21/20 08:59 Last Admin: 12/04/20 09:00 Dose: 1 tab Documented by: Umeclidinium [place] (Umeclidinium [place] 62.5mcg/Blister 7 Puffs/Inhaler) 1 puffs INH DAILY [facility]UNIA; Protocol Stop: 12/21/20 09:44 Last Admin: 12/03/20 08:42 Dose: 1 puffs Documented by: Mental Health & Subst Abuse Tx Psychiatrist Name of Psychiatrist: Velvet Sanchez Psychiatrist's Psychiatric Appointment Comment: [id number] [facility] Technical Architect Name of Technical Architect: [facility] Phone Number for Technical Architect: [phone] Post Discharge Appointments Primary Care Physician Name Of Family Doctor: MAN - Dr. Lancaster (BENJA OlveraC) Primary Care Provider Appointment Comment: [address] [place] [address] Corey Paredes Specialist Name of Specialist: MAN Cardiology - Dr. Ga Villareal Phone Number for Specialist: [phone] Specialty Appointment Comment: [address] [facility], [address], [place] Contact Information Discharge
--- NOTE | 2020-12-04 12:17 | XRay Report ---
XR chest 1V portable HISTORY: 60 years-old Female f/u for pneumonia 6 weeks ago follow-up study in a patient with history of pneumonia COMPARISON: Chest radiograph 10/21/2020, chest CT 10/17/2020 TECHNIQUE: Portable AP view of the chest FINDINGS: Cardiac mediastinal and hilar silhouettes are within normal limits. Prior median sternotomy with card iac valvular prosthesis. There is improved aeration of the right lung base. Mild blunting of the cost ophrenic angles. No pneumothorax, large pleural effusion, airspace consolidation or overt pulmonary e barbara. Degenerative changes of the shoulders and spine. IMPRESSION: No acute process. Resolution of the previously noted right lung base opacities. ACT 112: Negative or not required by law. The above report was generated using voice recognition software. It may contain grammatical, syntax o r spelling errors. Electronically signed by: Jason Soler M.D. 12/04/2020 12:15 PM
[2020-12-04] MEDS: ALUMINUM/MAGNESIUM SUSP 30 ML UDC PO PRN (12:57)
[2020-12-04] MEDS: SODIUM CHLORIDE 0.65% NA SOLN 45 ML (OCEAN) PRN (16:32)
[2020-12-04] MEDS: clonazePAM 0.5 MG TAB PO SCH (17:36)
[2020-12-04] MEDS: SIMVASTATIN 40 MG TAB PO SCH (21:34)
[2020-12-04] MEDS: traZODone HCL 100 MG TAB PO SCH (21:35)
--- NOTE | 2020-12-05 07:03 | Hospitalist Consultation ---
Date of Consultation December 04, 2020 Assessment & Plan (1) Atrial flutter with rapid ventricular response: Now resolved, status post ablation by cardiology on 10/07. - Had some bleeding at at the time of the procedure, but none now. - Continue Eliquis 5 mg p.o. twice daily -> Will discuss with Dr. Teague (EP), but can probably stop this at this point if there is no further evidence of atrial flutter. - Continue diltiazem - EKG ordered (2) Sinus tachycardia: Resolved. (3) Anemia: Hemoglobin 9.3 on 10/21, down from previous during last admission from acute blood loss anemia after she had bleeding from her right femoral site where her ablation was performed - Continue ferrous sulfate 325 mg p.o. twice daily along with docusate - Check on hgb on 11/28 showed hgb up to 12.2. (4) Chronic osteomyelitis: Since her open heart valve repair. Presently with no symptoms/indications of activie infection. - Current Bactrim chronically for prophylaxis. - Will get ID consult to see if she can stop the Bactrim. (5) Pneumonia: Diagnosed last admission, has completed a course of levofloxacin. - No indication of infection at this time. (6) Hypothyroidism: TSH normal here at 4.34. - Continue home dose of levothyroxine (7) Hyperlipidemia: - Continue simvastatin, fish oil (8) History of mitral valve repair: Echo 08/2020 with known severe mitral valve stenosis, EF preserved. (9) Constipation: Now resolved. - Continue docusate, daily Metamucil (10) Schizophrenia: - Management as per psychiatry (11) HTN (hypertension): Blood pressures are well controlled. - Continue home diltiazem (12) COPD, moderate: No acute issues. - Continue albuterol as needed and Umeclidinium 1 puff daily History of Present Illness Attending Physician: Camacho Evans MD History of Present Illness 60yo F w/ hx of psychiatric illness and atrial flutter & prior sternal osteomyelitis who presents as a repeat hospitalist consult. On my interview, she does endorse on/off palpitations all the time. During my interview, she reports it is happening as we speak. Otherwise, she has no complaints. Reports no fevers/chills, chest pain, shortness of breath, abdominal pain, nausea, or vomiting. Allergies Allergy/AdvReac Type Severity Reaction Status Date / Time Penicillins Allergy Unknown RASH Verified 10/21/20 00:33 perphenazine Allergy Unknown SWELLING Verified 10/21/20 00:33 ALL OVER BODY prednisone AdvReac Severe not able Verified 10/21/20 00:33 to sleep azithromycin AdvReac Hives Verified 10/21/20 00:33 Home Medications Medication Instructions Recorded Confirmed Type Eliquis 5 mg PO BID #60 tab 10/18/20 11/03/20 Rx albuterol sulfate 2 puff INHALATION QID PRN #18 g 10/18/20 11/03/20 Rx aspirin 81 mg PO DAILY #90 tab 10/18/20 11/03/20 Rx clonazepam 0.5 mg PO BID PRN #30 tab 10/18/20 11/03/20 Rx diltiazem HCl 180 mg PO QAM #30 cap 10/18/20 11/03/20 Rx gabapentin 400 mg PO TID #90 cap 10/18/20 11/03/20 Rx ipratropium bromide 2 spray INTRANASAL BID #15 ml 10/18/20 11/03/20 Rx levothyroxine [Synthroid] 88 mcg PO DAILYBB #30 tab 10/18/20 11/03/20 Rx omega-3 fatty acids-fish oil 1 cap PO DAILY #30 cap 10/18/20 11/03/20 Rx sulfamethoxazole-trimethoprim 1 tab PO Q12 #60 tab 10/18/20 11/03/20 Rx [Bactrim DS] tiotropium bromide 2 puff INHALATION DAILY #4 g 10/18/20 11/03/20 Rx quetiapine [Seroquel] See Rx Instructions .ROUTE .COMPLEX 10/21/20 11/03/20 History simvastatin 40 mg PO HS 10/21/20 11/03/20 History trazodone 100 mg PO HS 10/21/20 11/03/20 History Patient History Medical History Chronic osteomyelitis Chronic pain of right wrist COPD (chronic obstructive pulmonary disease) Current smoker Fibromyalgia GERD (gastroesophageal reflux disease) History of myocardial infarction in adulthood HTN (hypertension) Hyperlipidemia Lab test negative for COVID-19 virus Long-term use of high-risk medication Nicotine addiction PAD (peripheral artery disease) Paranoia Unspecified psychosis Surgical History H/O arthroscopic knee surgery History of cholecystectomy History of mitral valve repair History of tonsillectomy Family History Mother Breast cancer Uncle Diabetes Brother Diabetes Grandfather (Paternal) Diabetes Father Diabetes Grandmother (Maternal) Diabetes Colorectal cancer Social History Smoking Status: Current every day smoker (STARTED IN HER TEENS, UP TO 2 PACKS/DAY) Tobacco Type: Cigarettes packs per day: 1; Cigarettes Per Day: 20; Second Hand Exposure: Yes; Hx Alcohol Use: Yes Alcohol type: beer and wine Hx Substance Use: No Preferred Language: Mauritian Communication Ability: sleeping Dip [place] Required: No Beliefs That Will Affect Care: None marital status: Single Current Living Situation: Alone and Homeless Current Living Situation Comment: community housing/homeless current occupational status: disabled Feels Safe at Home: Declines to Answer Assistive Devices: None Review of Systems Review of Systems: All systems reviewed & are unremarkable except as noted in HPI & below Physical Exam Constitutional: WD/WN, vitals as above Eyes: EOM intact bilaterally; no conjunctival abnormality ENMT: external ear and nose normal, oropharynx normal Neck: trachea midline, no thyromegaly normal visual inspection Respiratory: normal respiratory effort, lungs clear to auscultation no respiratory distress Cardiovascular: RRR, no murmur, no edema Gastrointestinal (Abdomen): Inspection/Auscultation: abdomen normal to inspection; abdomen not distended Musculoskeletal: no cyanosis or clubbing, extremities motor strength 5/5 Skin: no rashes, warm and dry Neurologic: moves all extremities and awake Psychiatric: Orientation: alert, oriented to person and cooperative Results & Data Results & Data ([facility]) Vital Signs (Past 12 Hours) Vital Signs Temp Pulse Resp BP 12/05/20 06:52 89 92/59 L 12/05/20 06:50 36.9 C 83 16 100/62 12/04/20 20:48 36.9 C PG Care Time/CCT Total # of Minutes Spent Total Time Spent with Patient: Total time spent is greater than 50% in coordination of care (as documented) at patient's floor/unit and/or counseling patient: Coding Level of Care Code 14346 Inpt Consult Level 4 Diagnoses Atrial flutter with rapid ventricular response I48.92 Sinus tachycardia R00.0 Anemia D64.9 Chronic osteomyelitis M86.60 Pneumonia J18.9 Hypothyroidism E03.9 Hyperlipidemia E78.5 History of mitral valve repair Z98.890 Constipation K59.00 Schizophrenia F20.9 Schizophrenia type: unspecified HTN (hypertension) I10 COPD, moderate J44.9 (1) Schizophrenia Schizophrenia type: unspecified Qualified Code(s): F20.9 - Schizophrenia, unspecified
[2020-12-05] MEDS: LEVOTHYROXINE SODIUM 88 MCG TABLET PO SCH (07:45)
[2020-12-05] MEDS: APIXABAN 5 MG TABLET PO SCH (09:00)
[2020-12-05] MEDS: ASPIRIN 81 MG ECTAB PO SCH (09:00)
[2020-12-05] MEDS: DOCUSATE SODIUM 100 MG CAP PO SCH ×2 (09:01→21:09)
[2020-12-05] MEDS: DULoxetine HCL 60 MG CAP PO SCH (09:01)
[2020-12-05] MEDS: GABAPENTIN 400 MG CAP PO SCH ×3 (09:02→21:09)
[2020-12-05] MEDS: FERROUS SULFATE 325 MG TAB PO SCH ×2 (09:02→17:27)
[2020-12-05] MEDS: OMEGA-3 (PURIFIED FISH OIL) 1 GM CAP PO SCH (09:02)
[2020-12-05] MEDS: PSYLLIUM 58.6% POWDER PACKET PO SCH (09:02)
[2020-12-05] MEDS: IPRATROPIUM BROMIDE NASAL SPRAY 0.06% 15ML SCH ×2 (09:02→21:09)
[2020-12-05] MEDS: UMECLIDINIUM BROMIDE 62.5MCG/BLISTER 7 PUFFS/INHALER INH SCH (09:03)
[2020-12-05] MEDS: QUEtiapine FUMARATE 200 MG TAB PO SCH ×2 (09:03→21:10)
[2020-12-05] MEDS: SULFAMETHOXAZOLE/TRIMETHOPRIM DS 800/160MG TAB PO SCH ×2 (09:03→21:09)
[2020-12-05] MEDS: dilTIAZem HCL 180 MG CAPCR PO SCH (09:39)
[2020-12-05] MEDS: ACETAMINOPHEN 325 MG TAB PO PRN (10:32)
--- NOTE | 2020-12-05 10:58 | Psychiatric Progress Note ---
Date of Service December 05, 2020 Impression / Recommendations Impression 60 yo female with schizophrenia, increasingly depressed awaiting state hospital placement. Plan: offer biotene for dry mouth, Cymbalta recently increased to address depressive symptoms related to length of stay and fibromyalgia hx. Imp: remains improved. Plan: State hospital acceptance pending, internal medicine input appreciated, ID consult pending re: chronic bactrim suppressive therapy. Risk Factors Assessment Male: No : Yes Do You Have Access To A Gun?: No Health Problems: Yes Mental Health Diagnoses: Yes Substance Use Disorders: No Previous Attempt: Yes Previous Psychiatric Hospitalization: Yes Protective Factors Assessment Alevism Beliefs: Yes : No Responsible for Young Children: No Employed: No Interval History Chief Complaint "dry eyes". Review of Systems Sleep Information Total Hours of Sleep: 7.5 Sleep Comments: pt given trazodone per rn. pt on q-15 minute checks Meal Information Percent Meal Consumed - Breakfast: 100 Percent Meal Consumed - Lunch: 100 Percent Meal Consumed - Dinner: 0 Nutrition Comment: did not want to eat dinner Subjective Subjective Patient was seen & assessed and interval progress reviewed with nursing and social work. actively engaged with exercise group and peers on day shift, more reclusive again on evenings. She attributes to fibromyalgia. She was cooperative with repeat IM assessment to clarify monitoring recs for medical team at [facility]. Physical Exam Vital Signs (Past 24 Hours) Last Vital Signs Temp 36.9 C 12/05/20 06:50 Pulse 96 H 12/05/20 09:39 Resp 16 12/05/20 06:50 BP 117/72 12/05/20 09:39 Pulse Ox 100 12/03/20 13:31 Results & Data ([facility]) Current Inpatient Medications Current Inpatient Medications: Current Inpatient Medications Acetaminophen (Acetaminophen 325 Mg Tab) 650 mg PO Q4H PRN PRN Reason: Headache or Minor Fever Stop: 12/21/20 01:14 Last Admin: 12/05/20 10:32 Dose: 650 mg Documented by: Al Hydrox/Mg Hydrox/Simethicone (Aluminum/Magnesium Susp 30 Ml Udc) 30 ml PO Q4H PRN PRN Reason: GI Upset Stop: 12/21/20 01:14 Last Admin: 12/04/20 12:57 Dose: 30 ml Documented by: Albuterol (Albuterol Hfa 8 Gm Inhaler) 2 puffs INH QID PRN; Protocol PRN Reason: shortness of breath or wheezing or cough Stop: 12/21/20 08:30 Apixaban (Apixaban 5 Mg Tablet) 5 mg PO BID [facility] Stop: 12/21/20 08:59 Last Admin: 12/05/20 09:00 Dose: 5 mg Documented by: Aspirin (Aspirin 81 Mg Ectab) 81 mg PO DAILY DUNIA Stop: 12/21/20 08:59 Last Admin: 12/05/20 09:00 Dose: 81 mg Documented by: Clonazepam (Clonazepam 0.5 Mg Tab) 0.5 mg PO BID PRN PRN Reason: Anxiety Stop: 12/21/20 11:58 Clonazepam (Clonazepam 0.5 Mg Tab) 0.5 mg PO DAILYBD [facility] Stop: 12/21/20 17:14 Last Admin: 12/04/20 17:36 Dose: 0.5 mg Documented by: Diltiazem HCl (Diltiazem Hcl 180 Mg Capcr) 180 mg PO QAM [facility] Stop: 12/21/20 08:59 Last Admin: 12/05/20 09:39 Dose: 180 mg Documented by: Docusate Sodium (Docusate Sodium 100 Mg Cap) 100 mg PO BID [facility] Stop: 12/21/20 11:59 Last Admin: 12/05/20 09:01 Dose: 100 mg Documented by: Duloxetine HCl (Duloxetine Hcl 60 Mg Cap) 60 mg PO QAM [facility] Stop: 01/03/21 08:59 Last Admin: 12/05/20 09:01 Dose: 60 mg Documented by: Ferrous Sulfate (Ferrous Sulfate 325 Mg Tab) 325 mg PO BIDM [facility] Stop: 12/21/20 18:24 Last Admin: 12/05/20 09:02 Dose: 325 mg Documented by: Fish Oil (Merna-3 (Purified Fish Oil) 1 Gm Cap) 1 gm PO DAILY [facility] Stop: 12/21/20 09:44 Last Admin: 12/05/20 09:02 Dose: 1 gm Documented by: Gabapentin (Gabapentin 400 Mg Cap) 400 mg PO TID [facility] Stop: 12/21/20 08:59 Last Admin: 12/05/20 09:02 Dose: 400 mg Documented by: Ipratropium [place] (Ipratropium [place] Nasal [place] 0.06% 15ml) 2 sprays NA BID [facility] Stop: 12/21/20 08:59 Last Admin: 12/05/20 09:02 Dose: 2 sprays Documented by: Levothyroxine Sodium (Levothyroxine Sodium 88 Mcg Tablet) 88 mcg PO DAILYBB [facility] Stop: 12/21/20 07:59 Last Admin: 12/05/20 07:45 Dose: 88 mcg Documented by: Magnesium Hydroxide (Magnesium Hydroxide Susp 30 Ml Udc) 30 ml PO DAILY PRN PRN Reason: Constipation Stop: 12/21/20 01:14 Psyllium Hydrophilic Mucilloid (Psyllium 58.6% Powder Packet) 1 pkt PO QAM [facility]UN[facility] Stop: 12/26/20 11:29 Last Admin: 12/05/20 09:02 Dose: 1 pkt Documented by: Quetiapine Fumarate (Quetiapine Fumarate 200 Mg Tab) 200 mg PO DAILY [facility] Stop: 12/21/20 09:59 Last Admin: 12/05/20 09:03 Dose: 200 mg Documented by: Quetiapine Fumarate (Quetiapine Fumarate 200 Mg Tab) 400 mg PO [facility] Stop: 12/21/20 21:59 Last Admin: 12/04/20 21:36 Dose: 400 mg Documented by: Simvastatin (Simvastatin 40 Mg Tab) 40 mg PO HS [facility] Stop: 12/21/20 21:59 Last Admin: 12/04/20 21:34 Dose: 40 mg Documented by: Sodium Chloride (Sodium Chloride 0.65% Na Soln 45 Ml ([place])) 1 - 2 sprays NA PRN PRN PRN Reason: Nasal Dryness/Congestion Stop: 12/21/20 01:14 Last Admin: 12/04/20 16:32 Dose: 2 sprays Documented by: Trazodone HCl (Trazodone Hcl 100 Mg Tab) 100 mg PO HS [facility] Stop: 12/21/20 21:59 Last Admin: 12/04/20 21:35 Dose: 100 mg Documented by: Trimethoprim/Sulfamethoxazole (Sulfamethoxazole/Trimethoprim Ds 800/160mg Tab) 1 tab PO Q12 [facility] Stop: 12/21/20 08:59 Last Admin: 12/05/20 09:03 Dose: 1 tab Documented by: Umeclidinium [place] (Umeclidinium [place] 62.5mcg/Blister 7 Puffs/Inhaler) 1 puffs INH DAILY [facility]; Protocol Stop: 12/21/20 09:44 Last Admin: 12/05/20 09:03 Dose: 1 puffs Documented by: Mental Health & Subst Abuse Tx Psychiatrist Name of Psychiatrist: Velvet Sanchez Psychiatrist's Psychiatric Appointment Comment: [address] [facility] [employer] Name of Exterminator [employer]: [facility] Phone Number for Ex[employer]: [phone] Post Discharge Appointments Primary Care Physician Name Of Family Doctor: MAN - Dr. Lancaster (BENJA OlveraC) Primary Care Provider Appointment Comment: [address] [place] [address] Corey Paredes Specialist Name of Specialist: MAN Cardiology - Dr. Ga Villareal Phone Number for Specialist: [phone] Specialty Appointment Comment: [address] [facility], [address], [place] Contact Information Discharge
[2020-12-05] MEDS: clonazePAM 0.5 MG TAB PO SCH (17:27)
[2020-12-05] MEDS: SIMVASTATIN 40 MG TAB PO SCH (21:10)
[2020-12-05] MEDS: traZODone HCL 100 MG TAB PO SCH (21:10)
[2020-12-06] MEDS: UMECLIDINIUM BROMIDE 62.5MCG/BLISTER 7 PUFFS/INHALER INH SCH (09:42)
[2020-12-06] MEDS: PSYLLIUM 58.6% POWDER PACKET PO SCH (09:42)
[2020-12-06] MEDS: LEVOTHYROXINE SODIUM 88 MCG TABLET PO SCH (09:49)
[2020-12-06] MEDS: DULoxetine HCL 60 MG CAP PO SCH (09:49)
[2020-12-06] MEDS: DOCUSATE SODIUM 100 MG CAP PO SCH ×2 (09:49→20:35)
[2020-12-06] MEDS: FERROUS SULFATE 325 MG TAB PO SCH ×2 (09:49→17:24)
[2020-12-06] MEDS: OMEGA-3 (PURIFIED FISH OIL) 1 GM CAP PO SCH (09:49)
[2020-12-06] MEDS: GABAPENTIN 400 MG CAP PO SCH ×3 (09:49→20:35)
[2020-12-06] MEDS: dilTIAZem HCL 180 MG CAPCR PO SCH (09:49)
[2020-12-06] MEDS: ASPIRIN 81 MG ECTAB PO SCH (09:49)
[2020-12-06] MEDS: SULFAMETHOXAZOLE/TRIMETHOPRIM DS 800/160MG TAB PO SCH (09:50)
[2020-12-06] MEDS: QUEtiapine FUMARATE 200 MG TAB PO SCH ×2 (09:50→20:35)
[2020-12-06] MEDS: IPRATROPIUM BROMIDE NASAL SPRAY 0.06% 15ML SCH ×2 (09:50→20:35)
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
[2020-12-06] MEDS: clonazePAM 0.5 MG TAB PO SCH (17:24)
[2020-12-06] MEDS: SIMVASTATIN 40 MG TAB PO SCH (20:37)
[2020-12-06] MEDS: traZODone HCL 100 MG TAB PO SCH (20:38)
--- NOTE | 2020-12-07 06:01 | Electrocardiogram Report ---
Test Reason : Blood Pressure : / mmHG Vent. Rate : 082 BPM Atrial Rate : 082 BPM P-R Int : 170 ms QRS Dur : 090 ms QT Int : 382 ms P-R-T Axes : 038 -12 038 degrees QTc Int : 446 ms Normal sinus rhythm Low voltage QRS Inferior infarct (cited on or before 31-OCT-2010) Possible Anterolateral infarct (cited on or before 06-NOV-2010) Abnormal ECG When compared with ECG of 23-OCT-2020 19:20, No significant change was found Confirmed by Yaniv Hazel ([id number]) on 12/07/2020 6:01:28 AM Referred By: Stephanie Pacheco Confirmed By:Yaniv Hazel
[2020-12-07] MEDS: LEVOTHYROXINE SODIUM 88 MCG TABLET PO SCH (07:45)
[2020-12-07] MEDS: ASPIRIN 81 MG ECTAB PO SCH (08:21)
[2020-12-07] MEDS: PSYLLIUM 58.6% POWDER PACKET PO SCH (08:22)
[2020-12-07] MEDS: dilTIAZem HCL 180 MG CAPCR PO SCH (08:23)
[2020-12-07] MEDS: DULoxetine HCL 60 MG CAP PO SCH (08:24)
[2020-12-07] MEDS: DOCUSATE SODIUM 100 MG CAP PO SCH ×2 (08:24→20:39)
[2020-12-07] MEDS: FERROUS SULFATE 325 MG TAB PO SCH ×2 (08:24→17:33)
[2020-12-07] MEDS: OMEGA-3 (PURIFIED FISH OIL) 1 GM CAP PO SCH (08:25)
[2020-12-07] MEDS: GABAPENTIN 400 MG CAP PO SCH ×3 (08:25→20:39)
[2020-12-07] MEDS: QUEtiapine FUMARATE 200 MG TAB PO SCH ×2 (08:26→20:40)
[2020-12-07] MEDS: IPRATROPIUM BROMIDE NASAL SPRAY 0.06% 15ML SCH ×2 (08:27→20:39)
[2020-12-07] MEDS: UMECLIDINIUM BROMIDE 62.5MCG/BLISTER 7 PUFFS/INHALER INH SCH (08:31)
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
[2020-12-07] MEDS: clonazePAM 0.5 MG TAB PO SCH (17:33)
[2020-12-07] MEDS: SIMVASTATIN 40 MG TAB PO SCH (20:40)
[2020-12-07] MEDS: traZODone HCL 100 MG TAB PO SCH (20:40)
[2020-12-08] MEDS: LEVOTHYROXINE SODIUM 88 MCG TABLET PO SCH (08:05)
[2020-12-08] MEDS: IPRATROPIUM BROMIDE NASAL SPRAY 0.06% 15ML SCH ×2 (08:06→21:14)
[2020-12-08] MEDS: UMECLIDINIUM BROMIDE 62.5MCG/BLISTER 7 PUFFS/INHALER INH SCH (08:06)
[2020-12-08] MEDS: PSYLLIUM 58.6% POWDER PACKET PO SCH (08:07)
[2020-12-08] MEDS: ASPIRIN 81 MG ECTAB PO SCH (08:40)
[2020-12-08] MEDS: dilTIAZem HCL 180 MG CAPCR PO SCH (08:40)
[2020-12-08] MEDS: DULoxetine HCL 60 MG CAP PO SCH (08:41)
[2020-12-08] MEDS: DOCUSATE SODIUM 100 MG CAP PO SCH ×2 (08:41→21:15)
[2020-12-08] MEDS: FERROUS SULFATE 325 MG TAB PO SCH ×2 (08:41→17:35)
[2020-12-08] MEDS: QUEtiapine FUMARATE 200 MG TAB PO SCH ×2 (08:42→21:15)
[2020-12-08] MEDS: OMEGA-3 (PURIFIED FISH OIL) 1 GM CAP PO SCH (08:42)
[2020-12-08] MEDS: GABAPENTIN 400 MG CAP PO SCH ×3 (08:42→21:15)
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
[2020-12-08] MEDS: clonazePAM 0.5 MG TAB PO SCH (17:35)
[2020-12-08] MEDS: SIMVASTATIN 40 MG TAB PO SCH (21:15)
[2020-12-08] MEDS: traZODone HCL 100 MG TAB PO SCH (21:15)
[2020-12-09] MEDS: LEVOTHYROXINE SODIUM 88 MCG TABLET PO SCH (07:49)
[2020-12-09] MEDS: UMECLIDINIUM BROMIDE 62.5MCG/BLISTER 7 PUFFS/INHALER INH SCH (07:49)
[2020-12-09] MEDS: IPRATROPIUM BROMIDE NASAL SPRAY 0.06% 15ML SCH ×2 (07:49→21:27)
[2020-12-09] MEDS: PSYLLIUM 58.6% POWDER PACKET PO SCH (07:50)
[2020-12-09] MEDS: ASPIRIN 81 MG ECTAB PO SCH (08:29)
[2020-12-09] MEDS: FERROUS SULFATE 325 MG TAB PO SCH ×2 (08:30→17:22)
[2020-12-09] MEDS: OMEGA-3 (PURIFIED FISH OIL) 1 GM CAP PO SCH (08:30)
[2020-12-09] MEDS: GABAPENTIN 400 MG CAP PO SCH ×3 (08:30→21:27)
[2020-12-09] MEDS: DULoxetine HCL 60 MG CAP PO SCH (08:30)
[2020-12-09] MEDS: QUEtiapine FUMARATE 200 MG TAB PO SCH ×2 (08:30→21:27)
[2020-12-09] MEDS: DOCUSATE SODIUM 100 MG CAP PO SCH ×2 (08:30→21:27)
[2020-12-09] MEDS: dilTIAZem HCL 180 MG CAPCR PO SCH (11:42)
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
[2020-12-09] MEDS: clonazePAM 0.5 MG TAB PO SCH (17:22)
[2020-12-09] MEDS: traZODone HCL 100 MG TAB PO SCH (21:28)
[2020-12-09] MEDS: SIMVASTATIN 40 MG TAB PO SCH (21:28)
[2020-12-10] MEDS: LEVOTHYROXINE SODIUM 88 MCG TABLET PO SCH (08:58)
[2020-12-10] MEDS: ASPIRIN 81 MG ECTAB PO SCH (08:58)
[2020-12-10] MEDS: DULoxetine HCL 60 MG CAP PO SCH (08:59)
[2020-12-10] MEDS: dilTIAZem HCL 180 MG CAPCR PO SCH (08:59)
[2020-12-10] MEDS: DOCUSATE SODIUM 100 MG CAP PO SCH ×2 (08:59→20:14)
[2020-12-10] MEDS: QUEtiapine FUMARATE 200 MG TAB PO SCH ×2 (08:59→20:14)
[2020-12-10] MEDS: UMECLIDINIUM BROMIDE 62.5MCG/BLISTER 7 PUFFS/INHALER INH SCH (08:59)
[2020-12-10] MEDS: FERROUS SULFATE 325 MG TAB PO SCH ×2 (08:59→17:17)
[2020-12-10] MEDS: OMEGA-3 (PURIFIED FISH OIL) 1 GM CAP PO SCH (08:59)
[2020-12-10] MEDS: GABAPENTIN 400 MG CAP PO SCH ×3 (08:59→20:13)
[2020-12-10] MEDS: PSYLLIUM 58.6% POWDER PACKET PO SCH (09:00)
[2020-12-10] MEDS: IPRATROPIUM BROMIDE NASAL SPRAY 0.06% 15ML SCH ×2 (09:00→20:15)
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
[2020-12-10] MEDS: clonazePAM 0.5 MG TAB PO SCH (17:17)
[2020-12-10] MEDS: SIMVASTATIN 40 MG TAB PO SCH (20:14)
[2020-12-10] MEDS: traZODone HCL 100 MG TAB PO SCH (20:14)
[2020-12-11] MEDS: FERROUS SULFATE 325 MG TAB PO SCH ×2 (08:20→17:26)
[2020-12-11] MEDS: QUEtiapine FUMARATE 200 MG TAB PO SCH ×2 (08:20→21:43)
[2020-12-11] MEDS: DULoxetine HCL 60 MG CAP PO SCH (08:20)
[2020-12-11] MEDS: DOCUSATE SODIUM 100 MG CAP PO SCH ×2 (08:20→21:42)
[2020-12-11] MEDS: LEVOTHYROXINE SODIUM 88 MCG TABLET PO SCH (08:20)
[2020-12-11] MEDS: OMEGA-3 (PURIFIED FISH OIL) 1 GM CAP PO SCH (08:20)
[2020-12-11] MEDS: ASPIRIN 81 MG ECTAB PO SCH (08:20)
[2020-12-11] MEDS: IPRATROPIUM BROMIDE NASAL SPRAY 0.06% 15ML SCH ×2 (08:21→21:42)
[2020-12-11] MEDS: GABAPENTIN 400 MG CAP PO SCH ×3 (08:21→21:42)
[2020-12-11] MEDS: dilTIAZem HCL 180 MG CAPCR PO SCH (08:21)
[2020-12-11] MEDS: PSYLLIUM 58.6% POWDER PACKET PO SCH (08:21)
[2020-12-11] MEDS: UMECLIDINIUM BROMIDE 62.5MCG/BLISTER 7 PUFFS/INHALER INH SCH (08:22)
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
[2020-12-11] MEDS: clonazePAM 0.5 MG TAB PO SCH (17:26)
[2020-12-11] MEDS: SIMVASTATIN 40 MG TAB PO SCH (21:43)
[2020-12-11] MEDS: traZODone HCL 100 MG TAB PO SCH (21:43)
[2020-12-12] MEDS: LEVOTHYROXINE SODIUM 88 MCG TABLET PO SCH (07:27)
[2020-12-12] MEDS: QUEtiapine FUMARATE 200 MG TAB PO SCH ×2 (09:08→21:14)
[2020-12-12] MEDS: ASPIRIN 81 MG ECTAB PO SCH (09:08)
[2020-12-12] MEDS: DULoxetine HCL 60 MG CAP PO SCH (09:08)
[2020-12-12] MEDS: GABAPENTIN 400 MG CAP PO SCH ×3 (09:09→21:14)
[2020-12-12] MEDS: FERROUS SULFATE 325 MG TAB PO SCH ×2 (09:09→17:03)
[2020-12-12] MEDS: OMEGA-3 (PURIFIED FISH OIL) 1 GM CAP PO SCH (09:09)
[2020-12-12] MEDS: DOCUSATE SODIUM 100 MG CAP PO SCH ×2 (09:10→21:14)
[2020-12-12] MEDS: PSYLLIUM 58.6% POWDER PACKET PO SCH (09:11)
[2020-12-12] MEDS: IPRATROPIUM BROMIDE NASAL SPRAY 0.06% 15ML SCH ×2 (09:11→21:14)
[2020-12-12] MEDS: UMECLIDINIUM BROMIDE 62.5MCG/BLISTER 7 PUFFS/INHALER INH SCH (09:12)
[2020-12-12] MEDS: dilTIAZem HCL 180 MG CAPCR PO SCH (10:21)
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
[2020-12-12] MEDS: clonazePAM 0.5 MG TAB PO SCH (17:02)
[2020-12-12] MEDS: traZODone HCL 100 MG TAB PO SCH (21:14)
[2020-12-12] MEDS: SIMVASTATIN 40 MG TAB PO SCH (21:15)
[2020-12-13] MEDS: PSYLLIUM 58.6% POWDER PACKET PO SCH (08:52)
[2020-12-13] MEDS: LEVOTHYROXINE SODIUM 88 MCG TABLET PO SCH (09:15)
[2020-12-13] MEDS: DULoxetine HCL 60 MG CAP PO SCH (09:15)
[2020-12-13] MEDS: ASPIRIN 81 MG ECTAB PO SCH (09:15)
[2020-12-13] MEDS: DOCUSATE SODIUM 100 MG CAP PO SCH ×2 (09:16→20:35)
[2020-12-13] MEDS: FERROUS SULFATE 325 MG TAB PO SCH ×2 (09:16→17:33)
[2020-12-13] MEDS: GABAPENTIN 400 MG CAP PO SCH ×3 (09:16→20:35)
[2020-12-13] MEDS: dilTIAZem HCL 180 MG CAPCR PO SCH (09:16)
[2020-12-13] MEDS: UMECLIDINIUM BROMIDE 62.5MCG/BLISTER 7 PUFFS/INHALER INH SCH (09:16)
[2020-12-13] MEDS: OMEGA-3 (PURIFIED FISH OIL) 1 GM CAP PO SCH (09:16)
[2020-12-13] MEDS: QUEtiapine FUMARATE 200 MG TAB PO SCH ×2 (09:16→20:36)
[2020-12-13] MEDS: IPRATROPIUM BROMIDE NASAL SPRAY 0.06% 15ML SCH ×2 (09:17→20:35)
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
[2020-12-13] MEDS: clonazePAM 0.5 MG TAB PO SCH (17:33)
[2020-12-13] MEDS: traZODone HCL 100 MG TAB PO SCH (20:37)
[2020-12-13] MEDS: SIMVASTATIN 40 MG TAB PO SCH (20:37)
[2020-12-14] MEDS: LEVOTHYROXINE SODIUM 88 MCG TABLET PO SCH (09:06)
[2020-12-14] MEDS: ASPIRIN 81 MG ECTAB PO SCH (09:15)
[2020-12-14] MEDS: DULoxetine HCL 60 MG CAP PO SCH (09:15)
[2020-12-14] MEDS: PSYLLIUM 58.6% POWDER PACKET PO SCH (09:15)
[2020-12-14] MEDS: OMEGA-3 (PURIFIED FISH OIL) 1 GM CAP PO SCH (09:16)
[2020-12-14] MEDS: GABAPENTIN 400 MG CAP PO SCH ×3 (09:16→21:54)
[2020-12-14] MEDS: FERROUS SULFATE 325 MG TAB PO SCH ×2 (09:16→17:39)
[2020-12-14] MEDS: DOCUSATE SODIUM 100 MG CAP PO SCH ×2 (09:16→21:53)
[2020-12-14] MEDS: QUEtiapine FUMARATE 200 MG TAB PO SCH ×2 (09:17→21:52)
[2020-12-14] MEDS: UMECLIDINIUM BROMIDE 62.5MCG/BLISTER 7 PUFFS/INHALER INH SCH (09:21)
[2020-12-14] MEDS: IPRATROPIUM BROMIDE NASAL SPRAY 0.06% 15ML SCH ×2 (09:21→21:55)
[2020-12-14] MEDS: dilTIAZem HCL 180 MG CAPCR PO SCH (09:21)
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
[2020-12-14] MEDS: clonazePAM 0.5 MG TAB PO SCH (17:39)
[2020-12-14] MEDS: traZODone HCL 100 MG TAB PO SCH (21:53)
[2020-12-14] MEDS: SIMVASTATIN 40 MG TAB PO SCH (21:54)
[2020-12-15] MEDS: PSYLLIUM 58.6% POWDER PACKET PO SCH (11:08)
[2020-12-15] MEDS: UMECLIDINIUM BROMIDE 62.5MCG/BLISTER 7 PUFFS/INHALER INH SCH (11:08)
[2020-12-15] MEDS: LEVOTHYROXINE SODIUM 88 MCG TABLET PO SCH (11:10)
[2020-12-15] MEDS: ASPIRIN 81 MG ECTAB PO SCH (11:10)
[2020-12-15] MEDS: FERROUS SULFATE 325 MG TAB PO SCH ×2 (11:11→16:47)
[2020-12-15] MEDS: QUEtiapine FUMARATE 200 MG TAB PO SCH ×2 (11:11→21:10)
[2020-12-15] MEDS: DULoxetine HCL 60 MG CAP PO SCH (11:11)
[2020-12-15] MEDS: DOCUSATE SODIUM 100 MG CAP PO SCH ×2 (11:11→21:07)
[2020-12-15] MEDS: dilTIAZem HCL 180 MG CAPCR PO SCH (11:11)
[2020-12-15] MEDS: OMEGA-3 (PURIFIED FISH OIL) 1 GM CAP PO SCH (11:11)
[2020-12-15] MEDS: GABAPENTIN 400 MG CAP PO SCH ×3 (11:11→21:08)
[2020-12-15] MEDS: IPRATROPIUM BROMIDE NASAL SPRAY 0.06% 15ML SCH ×2 (11:12→21:08)
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
[2020-12-15] MEDS: clonazePAM 0.5 MG TAB PO SCH (16:47)
[2020-12-15] MEDS: SIMVASTATIN 40 MG TAB PO SCH (21:10)
[2020-12-15] MEDS: traZODone HCL 100 MG TAB PO SCH (21:11)
[2020-12-16] MEDS: LEVOTHYROXINE SODIUM 88 MCG TABLET PO SCH (09:50)
[2020-12-16] MEDS: DULoxetine HCL 60 MG CAP PO SCH (09:51)
[2020-12-16] MEDS: ASPIRIN 81 MG ECTAB PO SCH (09:51)
[2020-12-16] MEDS: DOCUSATE SODIUM 100 MG CAP PO SCH ×2 (09:51→21:23)
[2020-12-16] MEDS: FERROUS SULFATE 325 MG TAB PO SCH ×2 (09:51→17:38)
[2020-12-16] MEDS: dilTIAZem HCL 180 MG CAPCR PO SCH (09:51)
[2020-12-16] MEDS: OMEGA-3 (PURIFIED FISH OIL) 1 GM CAP PO SCH (09:51)
[2020-12-16] MEDS: GABAPENTIN 400 MG CAP PO SCH ×3 (09:52→21:23)
[2020-12-16] MEDS: QUEtiapine FUMARATE 200 MG TAB PO SCH ×2 (09:52→21:24)
[2020-12-16] MEDS: IPRATROPIUM BROMIDE NASAL SPRAY 0.06% 15ML SCH ×2 (09:52→21:25)
[2020-12-16] MEDS: PSYLLIUM 58.6% POWDER PACKET PO SCH (09:53)
[2020-12-16] MEDS: UMECLIDINIUM BROMIDE 62.5MCG/BLISTER 7 PUFFS/INHALER INH SCH (09:53)
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
[2020-12-16] MEDS: clonazePAM 0.5 MG TAB PO SCH (17:38)
[2020-12-16] MEDS: traZODone HCL 100 MG TAB PO SCH (21:24)
[2020-12-16] MEDS: SIMVASTATIN 40 MG TAB PO SCH (21:24)
[2020-12-17] MEDS: PSYLLIUM 58.6% POWDER PACKET PO SCH (09:43)
[2020-12-17] MEDS: LEVOTHYROXINE SODIUM 88 MCG TABLET PO SCH (09:46)
[2020-12-17] MEDS: UMECLIDINIUM BROMIDE 62.5MCG/BLISTER 7 PUFFS/INHALER INH SCH (09:46)
[2020-12-17] MEDS: DOCUSATE SODIUM 100 MG CAP PO SCH ×2 (09:47→20:52)
[2020-12-17] MEDS: FERROUS SULFATE 325 MG TAB PO SCH ×2 (09:47→17:17)
[2020-12-17] MEDS: DULoxetine HCL 60 MG CAP PO SCH (09:47)
[2020-12-17] MEDS: dilTIAZem HCL 180 MG CAPCR PO SCH (09:47)
[2020-12-17] MEDS: ASPIRIN 81 MG ECTAB PO SCH (09:47)
[2020-12-17] MEDS: GABAPENTIN 400 MG CAP PO SCH ×3 (09:48→20:52)
[2020-12-17] MEDS: IPRATROPIUM BROMIDE NASAL SPRAY 0.06% 15ML SCH ×2 (09:48→20:56)
[2020-12-17] MEDS: QUEtiapine FUMARATE 200 MG TAB PO SCH ×2 (09:48→20:54)
[2020-12-17] MEDS: OMEGA-3 (PURIFIED FISH OIL) 1 GM CAP PO SCH (09:48)
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
[2020-12-17] MEDS: clonazePAM 0.5 MG TAB PO SCH (17:17)
[2020-12-17] MEDS: SIMVASTATIN 40 MG TAB PO SCH (20:55)
[2020-12-17] MEDS: traZODone HCL 100 MG TAB PO SCH (20:55)
[2020-12-18] MEDS: PSYLLIUM 58.6% POWDER PACKET PO SCH (07:39)
[2020-12-18] MEDS: LEVOTHYROXINE SODIUM 88 MCG TABLET PO SCH (07:40)
[2020-12-18] MEDS: UMECLIDINIUM BROMIDE 62.5MCG/BLISTER 7 PUFFS/INHALER INH SCH (07:40)
[2020-12-18] MEDS: IPRATROPIUM BROMIDE NASAL SPRAY 0.06% 15ML SCH ×2 (07:41→20:32)
[2020-12-18] MEDS: ASPIRIN 81 MG ECTAB PO SCH (08:10)
[2020-12-18] MEDS: DOCUSATE SODIUM 100 MG CAP PO SCH ×2 (08:11→20:32)
[2020-12-18] MEDS: DULoxetine HCL 60 MG CAP PO SCH (08:11)
[2020-12-18] MEDS: GABAPENTIN 400 MG CAP PO SCH ×3 (08:11→20:32)
[2020-12-18] MEDS: OMEGA-3 (PURIFIED FISH OIL) 1 GM CAP PO SCH (08:11)
[2020-12-18] MEDS: QUEtiapine FUMARATE 200 MG TAB PO SCH ×2 (08:11→20:33)
[2020-12-18] MEDS: dilTIAZem HCL 180 MG CAPCR PO SCH (08:11)
[2020-12-18] MEDS: FERROUS SULFATE 325 MG TAB PO SCH ×2 (08:11→16:40)
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
[2020-12-18] MEDS: clonazePAM 0.5 MG TAB PO SCH (16:40)
[2020-12-18] MEDS: traZODone HCL 100 MG TAB PO SCH (20:33)
[2020-12-18] MEDS: SIMVASTATIN 40 MG TAB PO SCH (20:33)
[2020-12-19] MEDS: ASPIRIN 81 MG ECTAB PO SCH (13:17)
[2020-12-19] MEDS: LEVOTHYROXINE SODIUM 88 MCG TABLET PO SCH (13:17)
[2020-12-19] MEDS: dilTIAZem HCL 180 MG CAPCR PO SCH (13:18)
[2020-12-19] MEDS: PSYLLIUM 58.6% POWDER PACKET PO SCH (13:19)
[2020-12-19] MEDS: GABAPENTIN 400 MG CAP PO SCH ×3 (13:19→21:15)
[2020-12-19] MEDS: DOCUSATE SODIUM 100 MG CAP PO SCH ×2 (13:19→21:14)
[2020-12-19] MEDS: IPRATROPIUM BROMIDE NASAL SPRAY 0.06% 15ML SCH ×2 (13:19→21:15)
[2020-12-19] MEDS: FERROUS SULFATE 325 MG TAB PO SCH ×2 (13:19→16:55)
[2020-12-19] MEDS: OMEGA-3 (PURIFIED FISH OIL) 1 GM CAP PO SCH (13:19)
[2020-12-19] MEDS: DULoxetine HCL 60 MG CAP PO SCH (13:19)
[2020-12-19] MEDS: UMECLIDINIUM BROMIDE 62.5MCG/BLISTER 7 PUFFS/INHALER INH SCH (13:20)
[2020-12-19] MEDS: QUEtiapine FUMARATE 200 MG TAB PO SCH ×2 (13:20→21:15)
[2020-12-19] MEDS: clonazePAM 0.5 MG TAB PO SCH (16:55)
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
[2020-12-19] MEDS: traZODone HCL 100 MG TAB PO SCH (21:15)
[2020-12-19] MEDS: SIMVASTATIN 40 MG TAB PO SCH (21:15)
[2020-12-20] MEDS: PSYLLIUM 58.6% POWDER PACKET PO SCH (08:29)
[2020-12-20] MEDS: dilTIAZem HCL 180 MG CAPCR PO SCH (11:24)
[2020-12-20] MEDS: ASPIRIN 81 MG ECTAB PO SCH (11:24)
[2020-12-20] MEDS: LEVOTHYROXINE SODIUM 88 MCG TABLET PO SCH (11:24)
[2020-12-20] MEDS: DOCUSATE SODIUM 100 MG CAP PO SCH ×2 (11:25→21:31)
[2020-12-20] MEDS: DULoxetine HCL 60 MG CAP PO SCH (11:26)
[2020-12-20] MEDS: GABAPENTIN 400 MG CAP PO SCH ×3 (11:26→21:32)
[2020-12-20] MEDS: OMEGA-3 (PURIFIED FISH OIL) 1 GM CAP PO SCH (11:26)
[2020-12-20] MEDS: FERROUS SULFATE 325 MG TAB PO SCH ×2 (11:26→18:38)
[2020-12-20] MEDS: QUEtiapine FUMARATE 200 MG TAB PO SCH ×2 (11:27→21:34)
[2020-12-20] MEDS: IPRATROPIUM BROMIDE NASAL SPRAY 0.06% 15ML SCH ×2 (11:27→21:33)
[2020-12-20] MEDS: UMECLIDINIUM BROMIDE 62.5MCG/BLISTER 7 PUFFS/INHALER INH SCH (11:28)
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
[2020-12-20] MEDS: SIMVASTATIN 40 MG TAB PO SCH (21:34)
[2020-12-20] MEDS: traZODone HCL 100 MG TAB PO SCH (21:35)
[2020-12-21] MEDS: ASPIRIN 81 MG ECTAB PO SCH (10:07)
[2020-12-21] MEDS: LEVOTHYROXINE SODIUM 88 MCG TABLET PO SCH (10:07)
[2020-12-21] MEDS: DOCUSATE SODIUM 100 MG CAP PO SCH ×2 (10:10→20:59)
[2020-12-21] MEDS: DULoxetine HCL 60 MG CAP PO SCH (10:10)
[2020-12-21] MEDS: dilTIAZem HCL 180 MG CAPCR PO SCH (10:10)
[2020-12-21] MEDS: FERROUS SULFATE 325 MG TAB PO SCH ×2 (10:11→17:10)
[2020-12-21] MEDS: OMEGA-3 (PURIFIED FISH OIL) 1 GM CAP PO SCH (10:11)
[2020-12-21] MEDS: IPRATROPIUM BROMIDE NASAL SPRAY 0.06% 15ML SCH ×2 (10:11→21:04)
[2020-12-21] MEDS: GABAPENTIN 400 MG CAP PO SCH ×3 (10:11→20:59)
[2020-12-21] MEDS: PSYLLIUM 58.6% POWDER PACKET PO SCH ×2 (10:12→10:16)
[2020-12-21] MEDS: QUEtiapine FUMARATE 200 MG TAB PO SCH ×2 (10:12→21:00)
[2020-12-21] MEDS: UMECLIDINIUM BROMIDE 62.5MCG/BLISTER 7 PUFFS/INHALER INH SCH (10:12)
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
[2020-12-21] MEDS: SIMVASTATIN 40 MG TAB PO SCH (21:00)
[2020-12-21] MEDS: traZODone HCL 100 MG TAB PO SCH (21:01)
[2020-12-22] MEDS: LEVOTHYROXINE SODIUM 88 MCG TABLET PO SCH (08:31)
[2020-12-22] MEDS: dilTIAZem HCL 180 MG CAPCR PO SCH (08:31)
[2020-12-22] MEDS: ASPIRIN 81 MG ECTAB PO SCH (08:31)
[2020-12-22] MEDS: FERROUS SULFATE 325 MG TAB PO SCH ×2 (08:32→18:08)
[2020-12-22] MEDS: GABAPENTIN 400 MG CAP PO SCH ×3 (08:32→21:37)
[2020-12-22] MEDS: DOCUSATE SODIUM 100 MG CAP PO SCH ×2 (08:32→21:36)
[2020-12-22] MEDS: OMEGA-3 (PURIFIED FISH OIL) 1 GM CAP PO SCH (08:32)
[2020-12-22] MEDS: DULoxetine HCL 60 MG CAP PO SCH (08:32)
[2020-12-22] MEDS: UMECLIDINIUM BROMIDE 62.5MCG/BLISTER 7 PUFFS/INHALER INH SCH (08:33)
[2020-12-22] MEDS: IPRATROPIUM BROMIDE NASAL SPRAY 0.06% 15ML SCH ×2 (08:33→21:38)
[2020-12-22] MEDS: QUEtiapine FUMARATE 200 MG TAB PO SCH ×2 (08:33→21:41)
[2020-12-22] MEDS: PSYLLIUM 58.6% POWDER PACKET PO SCH (08:34)
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
[2020-12-22] MEDS: SIMVASTATIN 40 MG TAB PO SCH (21:42)
[2020-12-22] MEDS: traZODone HCL 100 MG TAB PO SCH (21:42)
[2020-12-23] MEDS: ASPIRIN 81 MG ECTAB PO SCH (08:44)
[2020-12-23] MEDS: QUEtiapine FUMARATE 200 MG TAB PO SCH ×2 (08:44→21:01)
[2020-12-23] MEDS: OMEGA-3 (PURIFIED FISH OIL) 1 GM CAP PO SCH (08:44)
[2020-12-23] MEDS: LEVOTHYROXINE SODIUM 88 MCG TABLET PO SCH (08:44)
[2020-12-23] MEDS: DOCUSATE SODIUM 100 MG CAP PO SCH ×2 (08:44→20:59)
[2020-12-23] MEDS: FERROUS SULFATE 325 MG TAB PO SCH ×2 (08:44→18:41)
[2020-12-23] MEDS: DULoxetine HCL 60 MG CAP PO SCH (08:45)
[2020-12-23] MEDS: PSYLLIUM 58.6% POWDER PACKET PO SCH (08:45)
[2020-12-23] MEDS: IPRATROPIUM BROMIDE NASAL SPRAY 0.06% 15ML SCH ×2 (08:46→21:00)
[2020-12-23] MEDS: UMECLIDINIUM BROMIDE 62.5MCG/BLISTER 7 PUFFS/INHALER INH SCH (08:46)
[2020-12-23] MEDS: GABAPENTIN 400 MG CAP PO SCH ×3 (08:47→21:00)
[2020-12-23] MEDS: dilTIAZem HCL 180 MG CAPCR PO SCH ×2 (08:51→13:52)
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
[2020-12-23] MEDS: SIMVASTATIN 40 MG TAB PO SCH (21:02)
[2020-12-23] MEDS: traZODone HCL 100 MG TAB PO SCH (21:03)
[2020-12-24] MEDS: PSYLLIUM 58.6% POWDER PACKET PO SCH (08:56)
[2020-12-24] MEDS: QUEtiapine FUMARATE 200 MG TAB PO SCH ×2 (08:58→21:03)
[2020-12-24] MEDS: IPRATROPIUM BROMIDE NASAL SPRAY 0.06% 15ML SCH ×2 (08:58→21:02)
[2020-12-24] MEDS: UMECLIDINIUM BROMIDE 62.5MCG/BLISTER 7 PUFFS/INHALER INH SCH (08:58)
[2020-12-24] MEDS: DOCUSATE SODIUM 100 MG CAP PO SCH ×2 (08:59→21:02)
[2020-12-24] MEDS: OMEGA-3 (PURIFIED FISH OIL) 1 GM CAP PO SCH (08:59)
[2020-12-24] MEDS: ASPIRIN 81 MG ECTAB PO SCH (09:00)
[2020-12-24] MEDS: LEVOTHYROXINE SODIUM 88 MCG TABLET PO SCH (09:00)
[2020-12-24] MEDS: DULoxetine HCL 60 MG CAP PO SCH (09:01)
[2020-12-24] MEDS: GABAPENTIN 400 MG CAP PO SCH ×3 (09:01→21:02)
[2020-12-24] MEDS: FERROUS SULFATE 325 MG TAB PO SCH ×2 (09:02→17:22)
[2020-12-24] MEDS: dilTIAZem HCL 180 MG CAPCR PO SCH (09:07)
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
[2020-12-24] MEDS: SIMVASTATIN 40 MG TAB PO SCH (21:02)
[2020-12-24] MEDS: traZODone HCL 100 MG TAB PO SCH (21:02)
[2020-12-25] MEDS: PSYLLIUM 58.6% POWDER PACKET PO SCH (11:03)
[2020-12-25] MEDS: DOCUSATE SODIUM 100 MG CAP PO SCH ×2 (11:05→20:35)
[2020-12-25] MEDS: LEVOTHYROXINE SODIUM 88 MCG TABLET PO SCH (11:05)
[2020-12-25] MEDS: dilTIAZem HCL 180 MG CAPCR PO SCH (11:05)
[2020-12-25] MEDS: DULoxetine HCL 60 MG CAP PO SCH (11:05)
[2020-12-25] MEDS: ASPIRIN 81 MG ECTAB PO SCH (11:05)
[2020-12-25] MEDS: IPRATROPIUM BROMIDE NASAL SPRAY 0.06% 15ML SCH ×2 (11:06→20:36)
[2020-12-25] MEDS: OMEGA-3 (PURIFIED FISH OIL) 1 GM CAP PO SCH (11:06)
[2020-12-25] MEDS: FERROUS SULFATE 325 MG TAB PO SCH ×2 (11:06→17:15)
[2020-12-25] MEDS: GABAPENTIN 400 MG CAP PO SCH ×3 (11:06→20:35)
[2020-12-25] MEDS: UMECLIDINIUM BROMIDE 62.5MCG/BLISTER 7 PUFFS/INHALER INH SCH (11:07)
[2020-12-25] MEDS: QUEtiapine FUMARATE 200 MG TAB PO SCH ×2 (11:07→20:37)
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
[2020-12-25] MEDS: SIMVASTATIN 40 MG TAB PO SCH (20:37)
[2020-12-25] MEDS: traZODone HCL 100 MG TAB PO SCH (20:37)
[2020-12-26] MEDS: LEVOTHYROXINE SODIUM 88 MCG TABLET PO SCH (08:09)
[2020-12-26] MEDS: ASPIRIN 81 MG ECTAB PO SCH (08:49)
[2020-12-26] MEDS: FERROUS SULFATE 325 MG TAB PO SCH ×2 (08:50→18:35)
[2020-12-26] MEDS: DOCUSATE SODIUM 100 MG CAP PO SCH ×2 (08:50→20:35)
[2020-12-26] MEDS: dilTIAZem HCL 180 MG CAPCR PO SCH (08:50)
[2020-12-26] MEDS: DULoxetine HCL 60 MG CAP PO SCH (08:50)
[2020-12-26] MEDS: GABAPENTIN 400 MG CAP PO SCH ×3 (08:50→20:35)
[2020-12-26] MEDS: OMEGA-3 (PURIFIED FISH OIL) 1 GM CAP PO SCH (08:50)
[2020-12-26] MEDS: QUEtiapine FUMARATE 200 MG TAB PO SCH ×3 (08:51→20:36)
[2020-12-26] MEDS: IPRATROPIUM BROMIDE NASAL SPRAY 0.06% 15ML SCH ×2 (08:51→20:36)
[2020-12-26] MEDS: PSYLLIUM 58.6% POWDER PACKET PO SCH (08:51)
[2020-12-26] MEDS: UMECLIDINIUM BROMIDE 62.5MCG/BLISTER 7 PUFFS/INHALER INH SCH (08:51)
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
[2020-12-26] MEDS: SIMVASTATIN 40 MG TAB PO SCH (20:36)
[2020-12-26] MEDS: traZODone HCL 100 MG TAB PO SCH (20:37)
[2020-12-27] MEDS: PSYLLIUM 58.6% POWDER PACKET PO SCH (09:57)
[2020-12-27] MEDS: LEVOTHYROXINE SODIUM 88 MCG TABLET PO SCH (09:57)
[2020-12-27] MEDS: ASPIRIN 81 MG ECTAB PO SCH (09:59)
[2020-12-27] MEDS: QUEtiapine FUMARATE 200 MG TAB PO SCH ×3 (10:00→21:06)
[2020-12-27] MEDS: dilTIAZem HCL 180 MG CAPCR PO SCH (10:00)
[2020-12-27] MEDS: DOCUSATE SODIUM 100 MG CAP PO SCH ×2 (10:01→21:05)
[2020-12-27] MEDS: DULoxetine HCL 60 MG CAP PO SCH (10:01)
[2020-12-27] MEDS: GABAPENTIN 400 MG CAP PO SCH ×3 (10:01→21:05)
[2020-12-27] MEDS: FERROUS SULFATE 325 MG TAB PO SCH ×2 (10:01→16:51)
[2020-12-27] MEDS: OMEGA-3 (PURIFIED FISH OIL) 1 GM CAP PO SCH (10:01)
[2020-12-27] MEDS: UMECLIDINIUM BROMIDE 62.5MCG/BLISTER 7 PUFFS/INHALER INH SCH (10:02)
[2020-12-27] MEDS: IPRATROPIUM BROMIDE NASAL SPRAY 0.06% 15ML SCH ×2 (10:02→21:05)
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
[2020-12-27] MEDS: SIMVASTATIN 40 MG TAB PO SCH (21:06)
[2020-12-27] MEDS: traZODone HCL 100 MG TAB PO SCH (21:06)
--- NOTE | 2020-12-28 09:16 | Psychiatric Progress Note ---
Date of Service December 28, 2020 Impression / Recommendations Impression 60 yo female with schizoaffective disorder awaiting [facility] hospital placement. Impression: intermittent regression Plan: Monitor ambulation and PO intake. Regressive behaviors generally have a clear trigger, yesterday removing hope of return to her apartment. [facility] accepted patient, bed date pending. consider shifting Seroquel dosing but not today as missed doses last night. Risk Factors Assessment Male: No : Yes Do You Have Access To A Gun?: No Health Problems: Yes Mental Health Diagnoses: Yes Substance Use Disorders: No Previous Attempt: Yes Previous Psychiatric Hospitalization: Yes Protective Factors Assessment Congregation Beliefs: Yes : No Responsible for Young Children: No Employed: No Interval History Identifying Information 60 yo female with schizoaffective disorder currently on 305 commitment, MNPR due to hoarding and paranoia. Chief Complaint "I'm not coming out". Review of Systems Sleep Information Total Hours of Sleep: 8 Sleep Comments: pt given trazodone per rn. pt on q-15 minute checks Meal Information Percent Meal Consumed - Breakfast: 0 Percent Meal Consumed - Lunch: 0 Percent Meal Consumed - Dinner: 0 Subjective Subjective Patient was seen & assessed and interval progress reviewed with nursing and social work. refused visitation by sisters yesterday and decrease in PO intake as upset they were cleaning out her apartment. Refused hs meds. Difficult to engage this am. Physical Exam Psychiatric A+Ox3, euthymic affect Orientation: + guarded Apperance: + disheveled Eye Contact: + poor eye contact Affect: + depressed affect and + blunted affect Thought Process: + concrete thought process Thought Content: + paranoid and + loneliness Suicidal Thoughts: denies suicidal thoughts Homicidal Thoughts: denies homicidal thoughts Estimated Intelligence: estimated intelligence not below average Insight: + poor insight Judgement: + poor judgement Vital Signs (Past 24 Hours) Last Vital Signs Temp 36.7 C 12/28/20 06:25 Pulse 97 H 12/28/20 06:25 Resp 16 12/28/20 06:25 BP 126/74 12/28/20 06:25 Pulse Ox 98 12/24/20 09:08 Results & Data ([facility]) Current Inpatient Medications Current Inpatient Medications: Current Inpatient Medications Acetaminophen (Acetaminophen 325 Mg Tab) 650 mg PO Q4H PRN PRN Reason: Headache or Minor Fever Stop: 01/21/21 01:14 Last Admin: 12/05/20 10:32 Dose: 650 mg Documented by: Al Hydrox/Mg Hydrox/Simethicone (Aluminum/Magnesium Susp 30 Ml Udc) 30 ml PO Q4H PRN PRN Reason: GI Upset Stop: 01/17/21 01:14 Last Admin: 12/04/20 12:57 Dose: 30 ml Documented by: Albuterol (Albuterol Hfa 8 Gm Inhaler) 2 puffs INH QID PRN; Protocol PRN Reason: shortness of breath or wheezing or cough Stop: 01/21/21 08:30 Aspirin (Aspirin 81 Mg Ectab) 81 mg PO DAILY [facility] Stop: 01/17/21 08:59 Last Admin: 12/27/20 09:59 Dose: 81 mg Documented by: Clonazepam (Clonazepam 0.5 Mg Tab) 0.5 mg PO BID PRN PRN Reason: Anxiety Stop: 01/17/21 11:58 Diltiazem HCl (Diltiazem Hcl 180 Mg Capcr) 180 mg PO QAM [facility] Stop: 01/21/21 08:59 Last Admin: 12/27/20 10:00 Dose: 180 mg Documented by: Docusate Sodium (Docusate Sodium 100 Mg Cap) 100 mg PO BID [facility] Stop: 01/21/21 11:59 Last Admin: 12/27/20 21:05 Dose: Not Given Documented by: Duloxetine HCl (Duloxetine Hcl 60 Mg Cap) 60 mg PO QAM [facility] Stop: 01/03/21 08:59 Last Admin: 12/27/20 10:01 Dose: 60 mg Documented by: Ferrous Sulfate (Ferrous Sulfate 325 Mg Tab) 325 mg PO BIDM [facility] Stop: 01/21/21 18:24 Last Admin: 12/27/20 16:51 Dose: Not Given Documented by: Fish Oil ([place]-3 (Purified Fish Oil) 1 Gm Cap) 1 gm PO DAILY [facility] Stop: 01/21/21 09:44 Last Admin: 12/27/20 10:01 Dose: 1 gm Documented by: Gabapentin (Gabapentin 400 Mg Cap) 400 mg PO TID [facility] Stop: 01/21/21 08:59 Last Admin: 12/27/20 21:05 Dose: Not Given Documented by: Ipratropium [place] (Ipratropium [place] Nasal [place] 0.06% 15ml) 2 sprays NA BID [facility] Stop: 01/21/21 08:59 Last Admin: 12/27/20 21:05 Dose: Not Given Documented by: Levothyroxine Sodium (Levothyroxine Sodium 88 Mcg Tablet) 88 mcg PO DAILYBB [facility] Stop: 01/18/21 07:59 Last Admin: 12/27/20 09:57 Dose: 88 mcg Documented by: Magnesium Hydroxide (Magnesium Hydroxide Susp 30 Ml Udc) 30 ml PO DAILY PRN PRN Reason: Constipation Stop: 01/21/21 01:14 Psyllium Hydrophilic Mucilloid (Psyllium 58.6% Powder Packet) 1 pkt PO QAM [facility] Stop: 01/26/21 11:29 Last Admin: 12/27/20 09:57 Dose: 1 pkt Documented by: Quetiapine Fumarate (Quetiapine Fumarate 200 Mg Tab) 200 mg PO DAILY [facility] Stop: 01/21/21 09:59 Last Admin: 12/27/20 16:42 Dose: Not Given Documented by: Quetiapine Fumarate (Quetiapine Fumarate 200 Mg Tab) 400 mg PO HS [facility] Stop: 01/21/21 21:59 Last Admin: 12/27/20 21:06 Dose: Not Given Documented by: Simvastatin (Simvastatin 40 Mg Tab) 40 mg PO HS [facility] Stop: 01/21/21 21:59 Last Admin: 12/27/20 21:06 Dose: Not Given Documented by: Sodium Chloride (Sodium Chloride 0.65% Na Soln 45 Ml ([place])) 1 - 2 sprays NA PRN PRN PRN Reason: Nasal Dryness/Congestion Stop: 01/21/21 01:14 Last Admin: 12/04/20 16:32 Dose: 2 sprays Documented by: Trazodone HCl (Trazodone Hcl 100 Mg Tab) 100 mg PO HS [facility] Stop: 01/21/21 21:59 Last Admin: 12/27/20 21:06 Dose: Not Given Documented by: Umeclidinium [place] (Umeclidinium [place] 62.5mcg/Blister 7 Puffs/Inhaler) 1 puffs INH DAILY [facility]; Protocol Stop: 01/17/21 09:44 Last Admin: 12/27/20 10:02 Dose: 1 puffs Documented by: Mental Health & Subst Abuse Tx Psychiatrist Name of Psychiatrist: Velvet Sanchez Psychiatrist's Psychiatric Appointment Comment: [id number] [facility], [place] Cash Management Officer Name of Cash Management Officer: [employer] [place] Phone Number for Cash Management Officer: [phone] Post Discharge Appointments Primary Care Physician Name Of Family Doctor: MAN - Dr. Lancaster (JADEN Olvera) Primary Care Provider Appointment Comment: [address] [place] [address] Corey Paredes Specialist Name of Specialist: MAN Cardiology - Dr. Ga Villareal Phone Number for Specialist: [phone] Specialty Appointment Comment: [address] [facility], [address], [place] Contact Information Discharge
[2020-12-28] MEDS: FERROUS SULFATE 325 MG TAB PO SCH ×2 (11:07→17:13)
[2020-12-28] MEDS: dilTIAZem HCL 180 MG CAPCR PO SCH (11:07)
[2020-12-28] MEDS: DOCUSATE SODIUM 100 MG CAP PO SCH ×2 (11:07→21:39)
[2020-12-28] MEDS: LEVOTHYROXINE SODIUM 88 MCG TABLET PO SCH (11:07)
[2020-12-28] MEDS: GABAPENTIN 400 MG CAP PO SCH ×3 (11:07→21:38)
[2020-12-28] MEDS: DULoxetine HCL 60 MG CAP PO SCH (11:07)
[2020-12-28] MEDS: OMEGA-3 (PURIFIED FISH OIL) 1 GM CAP PO SCH (11:07)
[2020-12-28] MEDS: ASPIRIN 81 MG ECTAB PO SCH (11:07)
[2020-12-28] MEDS: PSYLLIUM 58.6% POWDER PACKET PO SCH (11:08)
[2020-12-28] MEDS: IPRATROPIUM BROMIDE NASAL SPRAY 0.06% 15ML SCH ×2 (11:08→21:44)
[2020-12-28] MEDS: QUEtiapine FUMARATE 200 MG TAB PO SCH ×2 (11:08→21:38)
[2020-12-28] MEDS: UMECLIDINIUM BROMIDE 62.5MCG/BLISTER 7 PUFFS/INHALER INH SCH (11:08)
[2020-12-28] MEDS: traZODone HCL 100 MG TAB PO SCH (21:35)
[2020-12-28] MEDS: SIMVASTATIN 40 MG TAB PO SCH (21:35)
[2020-12-29] MEDS: GABAPENTIN 400 MG CAP PO SCH ×3 (09:43→21:36)
[2020-12-29] MEDS: DOCUSATE SODIUM 100 MG CAP PO SCH ×2 (09:43→21:37)
[2020-12-29] MEDS: PSYLLIUM 58.6% POWDER PACKET PO SCH (09:43)
[2020-12-29] MEDS: FERROUS SULFATE 325 MG TAB PO SCH ×2 (09:44→17:00)
[2020-12-29] MEDS: DULoxetine HCL 60 MG CAP PO SCH (09:44)
[2020-12-29] MEDS: UMECLIDINIUM BROMIDE 62.5MCG/BLISTER 7 PUFFS/INHALER INH SCH (09:44)
[2020-12-29] MEDS: QUEtiapine FUMARATE 200 MG TAB PO SCH ×2 (09:44→21:35)
[2020-12-29] MEDS: ASPIRIN 81 MG ECTAB PO SCH (09:44)
[2020-12-29] MEDS: LEVOTHYROXINE SODIUM 88 MCG TABLET PO SCH (09:44)
[2020-12-29] MEDS: OMEGA-3 (PURIFIED FISH OIL) 1 GM CAP PO SCH (09:44)
[2020-12-29] MEDS: dilTIAZem HCL 180 MG CAPCR PO SCH (09:44)
[2020-12-29] MEDS: IPRATROPIUM BROMIDE NASAL SPRAY 0.06% 15ML SCH ×2 (09:45→21:34)
--- NOTE | 2020-12-29 13:07 | Psychiatric Progress Note ---
Date of Service December 29, 2020 Impression / Recommendations Impression 60 yo female with schizoaffective disorder awaiting [facility] placement. Impression: remains reclusive but more cooperative than yesterday Plan: Monitor ambulation and PO intake.[facility] hospital accepted patient, bed date pending. Risk Factors Assessment Male: No : Yes Do You Have Access To A Gun?: No Health Problems: Yes Mental Health Diagnoses: Yes Substance Use Disorders: No Previous Attempt: Yes Previous Psychiatric Hospitalization: Yes Protective Factors Assessment Yarsani Beliefs: Yes : No Responsible for Young Children: No Employed: No Interval History Identifying Information 60 yo female with schizoaffective disorder currently on 305 commitment, MNPR due to hoarding and paranoia. Chief Complaint "I'm better today". Review of Systems Sleep Information Total Hours of Sleep: 10.75 Sleep Comments: pt given trazodone per rn. pt on q-15 minute checks Meal Information Percent Meal Consumed - Breakfast: 0 Percent Meal Consumed - Lunch: 0 Percent Meal Consumed - Dinner: 0 Nutrition Comment: pt. did not get out of bed; had a banana and some juice, is drinking consistently fluids. Snacks & fluids at bedside. Subjective Subjective Patient was seen & assessed and interval progress reviewed with nursing. Was ambulatory in room but generally reclusive yesterday. Resistant to medications in am but took hs meds. Out this am for water but otherwise difficult to monitor PO. Denies anxiety. Made more eye contact, attended to more questions than yesterday. Physical Exam Psychiatric Orientation: alert Apperance: appropriately dressed and appropriately groomed Eye Contact: good eye contact and + fair eye contact Motor Behavior: no abnormal motor movements nonspontaneous Affect: + blunted affect mood is "OK" Thought Process: goal directed thought process Thought Content: + paranoid Suicidal Thoughts: denies suicidal thoughts Homicidal Thoughts: denies homicidal thoughts Hallucinations: no auditory hallucinations and no visual hallucinations Cognition: attention grossly intact and language grossly intact Estimated Intelligence: consistent with education level Insight: + poor insight Vital Signs (Past 24 Hours) Last Vital Signs Temp 36.6 C 12/29/20 06:52 Pulse 122 H 12/29/20 06:53 Resp 16 12/29/20 06:52 BP 96/60 L 12/29/20 06:53 Pulse Ox 98 12/24/20 09:08 Results & Data ([facility]) Current Inpatient Medications Current Inpatient Medications: Current Inpatient Medications Acetaminophen (Acetaminophen 325 Mg Tab) 650 mg PO Q4H PRN PRN Reason: Headache or Minor Fever Stop: 01/21/21 01:14 Last Admin: 12/05/20 10:32 Dose: 650 mg Documented by: Al Hydrox/Mg Hydrox/Simethicone (Aluminum/Magnesium Susp 30 Ml Udc) 30 ml PO Q4H PRN PRN Reason: GI Upset Stop: 01/17/21 01:14 Last Admin: 12/04/20 12:57 Dose: 30 ml Documented by: Albuterol (Albuterol Hfa 8 Gm Inhaler) 2 puffs INH QID PRN; Protocol PRN Reason: shortness of breath or wheezing or cough Stop: 01/21/21 08:30 Aspirin (Aspirin 81 Mg Ectab) 81 mg PO DAILY [facility] Stop: 01/17/21 08:59 Last Admin: 12/29/20 09:44 Dose: 81 mg Documented by: Clonazepam (Clonazepam 0.5 Mg Tab) 0.5 mg PO BID PRN PRN Reason: Anxiety Stop: 01/17/21 11:58 Diltiazem HCl (Diltiazem Hcl 180 Mg Capcr) 180 mg PO QAM [facility] Stop: 01/21/21 08:59 Last Admin: 12/29/20 09:44 Dose: 180 mg Documented by: Docusate Sodium (Docusate Sodium 100 Mg Cap) 100 mg PO BID [facility] Stop: 01/21/21 11:59 Last Admin: 12/29/20 09:43 Dose: 100 mg Documented by: Duloxetine HCl (Duloxetine Hcl 60 Mg Cap) 60 mg PO QAM [facility] Stop: 01/03/21 08:59 Last Admin: 12/29/20 09:44 Dose: 60 mg Documented by: Ferrous Sulfate (Ferrous Sulfate 325 Mg Tab) 325 mg PO BIDM [facility] Stop: 01/21/21 18:24 Last Admin: 12/29/20 09:44 Dose: 325 mg Documented by: Fish Oil ([place]-3 (Purified Fish Oil) 1 Gm Cap) 1 gm PO DAILY [facility] Stop: 01/21/21 09:44 Last Admin: 12/29/20 09:44 Dose: 1 gm Documented by: Gabapentin (Gabapentin 400 Mg Cap) 400 mg PO TID [facility] Stop: 01/21/21 08:59 Last Admin: 12/29/20 09:43 Dose: 400 mg Documented by: Ipratropium [place] (Ipratropium [place] Nasal [place] 0.06% 15ml) 2 sprays NA BID [facility] Stop: 01/21/21 08:59 Last Admin: 12/29/20 09:45 Dose: 2 sprays Documented by: Levothyroxine Sodium (Levothyroxine Sodium 88 Mcg Tablet) 88 mcg PO DAILYBB [facility] Stop: 01/18/21 07:59 Last Admin: 12/29/20 09:44 Dose: 88 mcg Documented by: Magnesium Hydroxide (Magnesium Hydroxide Susp 30 Ml Udc) 30 ml PO DAILY PRN PRN Reason: Constipation Stop: 01/21/21 01:14 Psyllium Hydrophilic Mucilloid (Psyllium 58.6% Powder Packet) 1 pkt PO QAM [facility] Stop: 01/26/21 11:29 Last Admin: 12/29/20 09:43 Dose: 1 pkt Documented by: Quetiapine Fumarate (Quetiapine Fumarate 200 Mg Tab) 200 mg PO DAILY [facility] Stop: 01/21/21 09:59 Last Admin: 12/29/20 09:44 Dose: 200 mg Documented by: Quetiapine Fumarate (Quetiapine Fumarate 200 Mg Tab) 400 mg PO [facility] Stop: 01/21/21 21:59 Last Admin: 12/28/20 21:38 Dose: 400 mg Documented by: Simvastatin (Simvastatin 40 Mg Tab) 40 mg PO HS [facility] Stop: 01/21/21 21:59 Last Admin: 12/28/20 21:35 Dose: 40 mg Documented by: Sodium Chloride (Sodium Chloride 0.65% Na Soln 45 Ml ([place])) 1 - 2 sprays NA PRN PRN PRN Reason: Nasal Dryness/Congestion Stop: 01/21/21 01:14 Last Admin: 12/04/20 16:32 Dose: 2 sprays Documented by: Trazodone HCl (Trazodone Hcl 100 Mg Tab) 100 mg PO [facility] Stop: 01/21/21 21:59 Last Admin: 12/28/20 21:35 Dose: 100 mg Documented by: Umeclidinium [place] (Umeclidinium [place] 62.5mcg/Blister 7 Puffs/Inhaler) 1 puffs INH DAILY [facility]; Protocol Stop: 01/17/21 09:44 Last Admin: 12/29/20 09:44 Dose: 1 puffs Documented by: Mental Health & Subst Abuse Tx Psychiatrist Name of Psychiatrist: Velvet Sanchez Psychiatrist's Psychiatric Appointment Comment: [id number] [facility] Reel Operator Name of Reel Operator: [facility] Phone Number for Reel Operator: [phone] Post Discharge Appointments Primary Care Physician Name Of Family Doctor: MAN - Dr. Lancaster (BENJA OlveraC) Primary Care Provider Appointment Comment: [address] [place] [address] Corey Paredes Specialist Name of Specialist: MAN Cardiology - Dr. Ga Villareal Phone Number for Specialist: [phone] Specialty Appointment Comment: [address] [facility], [address], [place] Contact Information Discharge
[2020-12-29] MEDS: SIMVASTATIN 40 MG TAB PO SCH (21:35)
[2020-12-29] MEDS: traZODone HCL 100 MG TAB PO SCH (21:37)
--- NOTE | 2020-12-30 07:57 | Psychiatric Progress Note ---
Date of Service December 30, 2020 Impression / Recommendations Impression 60 yo female with schizoaffective disorder awaiting [facility] placement. Impression: unchanged [facility]. Remains unable to care for safety and basic needs outside of the hospital setting. MNPR due to paranoia and hoarding behaviors. Risk Factors Assessment Male: No : Yes Do You Have Access To A Gun?: No Health Problems: Yes Mental Health Diagnoses: Yes Substance Use Disorders: No Previous Attempt: Yes Previous Psychiatric Hospitalization: Yes Protective Factors Assessment Evangelical Beliefs: Yes : No Responsible for Young Children: No Employed: No Interval History Identifying Information 60 yo female with schizoaffective disorder currently on 305 commitment, MNPR due to hoarding and paranoia. Chief Complaint "I'm just tired today". Review of Systems Sleep Information Total Hours of Sleep: 8 Meal Information Percent Meal Consumed - Breakfast: 0 Percent Meal Consumed - Lunch: 0 Percent Meal Consumed - Dinner: 0 Subjective Subjective Patient was seen & assessed and interval progress reviewed with treatment team. Patient is active in room and then will hide in bed when staff come in to check on her, even if eating a cookie, as wants to be left alone. She has lost weight but had gained weight during first month of stay so similar to admission. Less tachy today as taking meds consistently. Discussed behavioral interventions to get patient more engaged as last day fully participated was 12/26/20. Physical Exam Psychiatric Orientation: alert and oriented x 3 Apperance: appropriately dressed and appropriately groomed Eye Contact: + fair eye contact Motor Behavior: no abnormal motor movements non-spontaneous Affect: + blunted affect mood is "fine" Thought Process: + concrete thought process Thought Content: + paranoid Suicidal Thoughts: denies suicidal thoughts Homicidal Thoughts: denies homicidal thoughts Hallucinations: no auditory hallucinations and no visual hallucinations Cognition: attention grossly intact and language grossly intact Estimated Intelligence: consistent with education level Insight: + poor insight Judgement: + poor judgement Vital Signs (Past 24 Hours) Last Vital Signs Temp 36.7 C 12/30/20 06:40 Pulse 94 H 12/30/20 06:40 Resp 14 12/30/20 06:40 BP 105/64 12/30/20 06:40 Pulse Ox 98 12/24/20 09:08 Results & Data ([facility] [[email or web address] Current Inpatient Medications Current Inpatient Medications: Current Inpatient Medications Acetaminophen (Acetaminophen 325 Mg Tab) 650 mg PO Q4H PRN PRN Reason: Headache or Minor Fever Stop: 01/21/21 01:14 Last Admin: 12/05/20 10:32 Dose: 650 mg Documented by: Al Hydrox/Mg Hydrox/Simethicone (Aluminum/Magnesium Susp 30 Ml Udc) 30 ml PO Q4H PRN PRN Reason: GI Upset Stop: 01/17/21 01:14 Last Admin: 12/04/20 12:57 Dose: 30 ml Documented by: Albuterol (Albuterol Hfa 8 Gm Inhaler) 2 puffs INH QID PRN; Protocol PRN Reason: shortness of breath or wheezing or cough Stop: 01/21/21 08:30 Aspirin (Aspirin 81 Mg Ectab) 81 mg PO DAILY [facility] Stop: 01/17/21 08:59 Last Admin: 12/29/20 09:44 Dose: 81 mg Documented by: Clonazepam (Clonazepam 0.5 Mg Tab) 0.5 mg PO BID PRN PRN Reason: Anxiety Stop: 01/17/21 11:58 Diltiazem HCl (Diltiazem Hcl 180 Mg Capcr) 180 mg PO QAM [facility] Stop: 01/21/21 08:59 Last Admin: 12/29/20 09:44 Dose: 180 mg Documented by: Docusate Sodium (Docusate Sodium 100 Mg Cap) 100 mg PO BID [facility] Stop: 01/21/21 11:59 Last Admin: 12/29/20 21:37 Dose: 100 mg Documented by: Duloxetine HCl (Duloxetine Hcl 60 Mg Cap) 60 mg PO QAM [facility] Stop: 01/03/21 08:59 Last Admin: 12/29/20 09:44 Dose: 60 mg Documented by: Ferrous Sulfate (Ferrous Sulfate 325 Mg Tab) 325 mg PO BIDM [facility] Stop: 01/21/21 18:24 Last Admin: 12/29/20 17:00 Dose: 325 mg Documented by: Fish Oil ([place]-3 (Purified Fish Oil) 1 Gm Cap) 1 gm PO DAILY [facility] Stop: 01/21/21 09:44 Last Admin: 12/29/20 09:44 Dose: 1 gm Documented by: Gabapentin (Gabapentin 400 Mg Cap) 400 mg PO TID [facility] Stop: 01/21/21 08:59 Last Admin: 12/29/20 21:36 Dose: 400 mg Documented by: Ipratropium [place] (Ipratropium [place] Nasal [place] 0.06% 15ml) 2 sprays NA BID [facility] Stop: 01/21/21 08:59 Last Admin: 12/29/20 21:34 Dose: 2 sprays Documented by: Levothyroxine Sodium (Levothyroxine Sodium 88 Mcg Tablet) 88 mcg PO DAILYBB [facility] Stop: 01/18/21 07:59 Last Admin: 12/29/20 09:44 Dose: 88 mcg Documented by: Magnesium Hydroxide (Magnesium Hydroxide Susp 30 Ml Udc) 30 ml PO DAILY PRN PRN Reason: Constipation Stop: 01/21/21 01:14 Psyllium Hydrophilic Mucilloid (Psyllium 58.6% Powder Packet) 1 pkt PO QAM [facility] Stop: 01/26/21 11:29 Last Admin: 12/29/20 09:43 Dose: 1 pkt Documented by: Quetiapine Fumarate (Quetiapine Fumarate 200 Mg Tab) 200 mg PO DAILY [facility] Stop: 01/21/21 09:59 Last Admin: 12/29/20 09:44 Dose: 200 mg Documented by: Quetiapine Fumarate (Quetiapine Fumarate 200 Mg Tab) 400 mg PO HS [facility] Stop: 01/21/21 21:59 Last Admin: 12/29/20 21:35 Dose: 400 mg Documented by: Simvastatin (Simvastatin 40 Mg Tab) 40 mg PO HS [facility] Stop: 01/21/21 21:59 Last Admin: 12/29/20 21:35 Dose: 40 mg Documented by: Sodium Chloride (Sodium Chloride 0.65% Na Soln 45 Ml ([place])) 1 - 2 sprays NA PRN PRN PRN Reason: Nasal Dryness/Congestion Stop: 01/21/21 01:14 Last Admin: 12/04/20 16:32 Dose: 2 sprays Documented by: Trazodone HCl (Trazodone Hcl 100 Mg Tab) 100 mg PO HS [facility] Stop: 01/21/21 21:59 Last Admin: 12/29/20 21:37 Dose: 100 mg Documented by: Umeclidinium [place] (Umeclidinium [place] 62.5mcg/Blister 7 Puffs/Inhaler) 1 puffs INH DAILY [facility]; Protocol Stop: 01/17/21 09:44 Last Admin: 12/29/20 09:44 Dose: 1 puffs Documented by: Mental Health & Subst Abuse Tx Psychiatrist Name of Psychiatrist: Velvet Sanchez Psychiatrist's Psychiatric Appointment Comment: [id number] [facility] Pewter Finisher Name of Pewter Finisher: [facility] Phone Number for Pewter Finisher: [phone] Post Discharge Appointments Primary Care Physician Name Of Family Doctor: MAN - Dr. Lancaster (BENJA OlveraC) Primary Care Provider Appointment Comment: [address] [facility] Roxanne Paredesefonte Specialist Name of Specialist: MAN Cardiology - Dr. Ga Villareal Phone Number for Specialist: [phone] Specialty Appointment Comment: [address] [facility] [place], [address], [place] Contact Information Discharge
[2020-12-30] MEDS: ASPIRIN 81 MG ECTAB PO SCH (14:05)
[2020-12-30] MEDS: DULoxetine HCL 60 MG CAP PO SCH (14:05)
[2020-12-30] MEDS: dilTIAZem HCL 180 MG CAPCR PO SCH (14:05)
[2020-12-30] MEDS: DOCUSATE SODIUM 100 MG CAP PO SCH ×2 (14:05→21:30)
[2020-12-30] MEDS: LEVOTHYROXINE SODIUM 88 MCG TABLET PO SCH (14:05)
[2020-12-30] MEDS: IPRATROPIUM BROMIDE NASAL SPRAY 0.06% 15ML SCH ×2 (14:06→21:30)
[2020-12-30] MEDS: QUEtiapine FUMARATE 200 MG TAB PO SCH ×2 (14:06→21:30)
[2020-12-30] MEDS: FERROUS SULFATE 325 MG TAB PO SCH ×2 (14:06→17:26)
[2020-12-30] MEDS: OMEGA-3 (PURIFIED FISH OIL) 1 GM CAP PO SCH (14:06)
[2020-12-30] MEDS: PSYLLIUM 58.6% POWDER PACKET PO SCH (14:06)
[2020-12-30] MEDS: GABAPENTIN 400 MG CAP PO SCH ×3 (14:06→21:30)
[2020-12-30] MEDS: UMECLIDINIUM BROMIDE 62.5MCG/BLISTER 7 PUFFS/INHALER INH SCH (14:07)
[2020-12-30] MEDS: traZODone HCL 100 MG TAB PO SCH (21:30)
[2020-12-30] MEDS: SIMVASTATIN 40 MG TAB PO SCH (21:30)
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
[2020-12-31] MEDS: DOCUSATE SODIUM 100 MG CAP PO SCH ×2 (09:55→21:48)
[2020-12-31] MEDS: ASPIRIN 81 MG ECTAB PO SCH (09:55)
[2020-12-31] MEDS: FERROUS SULFATE 325 MG TAB PO SCH ×2 (09:55→18:06)
[2020-12-31] MEDS: OMEGA-3 (PURIFIED FISH OIL) 1 GM CAP PO SCH (09:55)
[2020-12-31] MEDS: LEVOTHYROXINE SODIUM 88 MCG TABLET PO SCH (09:55)
[2020-12-31] MEDS: DULoxetine HCL 60 MG CAP PO SCH (09:55)
[2020-12-31] MEDS: dilTIAZem HCL 180 MG CAPCR PO SCH (09:55)
[2020-12-31] MEDS: GABAPENTIN 400 MG CAP PO SCH ×3 (09:56→21:49)
[2020-12-31] MEDS: PSYLLIUM 58.6% POWDER PACKET PO SCH (09:56)
[2020-12-31] MEDS: IPRATROPIUM BROMIDE NASAL SPRAY 0.06% 15ML SCH ×2 (09:56→21:49)
[2020-12-31] MEDS: UMECLIDINIUM BROMIDE 62.5MCG/BLISTER 7 PUFFS/INHALER INH SCH (09:56)
[2020-12-31] MEDS: QUEtiapine FUMARATE 100 MG TABLET PO SCH (09:56)
[2020-12-31 21:44] LABS: Albumin Level 4.4 gm/dl (3.4-5.0); BUN Creatinine Ratio 38.6 (10-20); Blood Urea Nitrogen 26 mg/dl (7-18); Calcium 9.8 mg/dl (8.5-10.1); Carbon Dioxide 20 mmol/L (21-32); Chloride 110 mmol/L (98-107); Est GFR (African American) 112.1 ml/min; Est GFR (Non-African American) 96.7 ml/min; Glucose 103 mg/dl (70-99); Potassium 3.5 mmol/L (3.5-5.1); Sodium 141 mmol/L (136-145)
[2020-12-31] MEDS: QUEtiapine FUMARATE 200 MG TAB PO SCH (21:49)
[2020-12-31] MEDS: traZODone HCL 100 MG TAB PO SCH (21:49)
[2020-12-31] MEDS: SIMVASTATIN 40 MG TAB PO SCH (21:49)
[2020-12-31 21:54] LABS: Phosphorus 2.7 mg/dl (2.5-4.9)
[2021-01-01] MEDS: dilTIAZem HCL 180 MG CAPCR PO SCH ×2 (07:51→14:21)
[2021-01-01] MEDS: LEVOTHYROXINE SODIUM 88 MCG TABLET PO SCH ×2 (07:51→14:20)
[2021-01-01] MEDS: DOCUSATE SODIUM 100 MG CAP PO SCH ×3 (07:51→19:18)
[2021-01-01] MEDS: ASPIRIN 81 MG ECTAB PO SCH ×2 (07:51→14:20)
[2021-01-01] MEDS: OMEGA-3 (PURIFIED FISH OIL) 1 GM CAP PO SCH ×2 (07:52→14:22)
[2021-01-01] MEDS: DULoxetine HCL 60 MG CAP PO SCH ×2 (07:52→14:21)
[2021-01-01] MEDS: FERROUS SULFATE 325 MG TAB PO SCH ×3 (07:52→17:18)
[2021-01-01] MEDS: GABAPENTIN 400 MG CAP PO SCH ×4 (07:52→19:18)
[2021-01-01] MEDS: PSYLLIUM 58.6% POWDER PACKET PO SCH (07:53)
[2021-01-01] MEDS: IPRATROPIUM BROMIDE NASAL SPRAY 0.06% 15ML SCH ×2 (07:53→19:18)
[2021-01-01] MEDS: UMECLIDINIUM BROMIDE 62.5MCG/BLISTER 7 PUFFS/INHALER INH SCH (07:53)
[2021-01-01] MEDS: QUEtiapine FUMARATE 100 MG TABLET PO SCH ×2 (07:53→14:21)
--- NOTE | 2021-01-01 11:19 | Psychiatric Progress Note ---
Date of Service January 01, 2021 Impression / Recommendations Impression 60 yo female with schizoaffective disorder awaiting [facility] placement. Impression: [facility]. Remains unable to care for safety and basic needs outside of the hospital setting. MNPR due to paranoia and hoarding behaviors. Patient is nearing catatonic and although labs are OK, need to address possible need for anticoagulation and medical support for meds over objection. Would start with IM Ativan as trial for catatonia then consider IM Zyprexa if still refusing PO Seroquel. Risk Factors Assessment Male: No : Yes Do You Have Access To A Gun?: No Health Problems: Yes Mental Health Diagnoses: Yes Substance Use Disorders: No Previous Attempt: Yes Previous Psychiatric Hospitalization: Yes Protective Factors Assessment Mormonism Beliefs: Yes : No Responsible for Young Children: No Employed: No Interval History Identifying Information 60 yo female with schizoaffective disorder currently on 305 commitment, MNPR due to hoarding and paranoia. Chief Complaint refusing to speak Review of Systems Sleep Information Total Hours of Sleep: 6.5 Sleep Comments: pt given trazodone per rn. pt on q-15 minute checks Meal Information Percent Meal Consumed - Breakfast: 0 Percent Meal Consumed - Lunch: 0 Percent Meal Consumed - Dinner: 0 Nutrition Comment: Fluids at bedside Subjective Subjective Patient was seen & assessed and interval progress reviewed with treatment team. Patient continues to refuse meds, more time in bed (previously mainly to avoid staff), blank stare but did allow labs last pm (slight increase in BUN). Physical Exam Psychiatric Orientation: alert and + guarded Apperance: + disheveled Eye Contact: + poor eye contact Motor Behavior: no abnormal motor movements selctive mutism, uses gestures occasionally Affect: + depressed affect Mood: + depressed mood Thought Process: + thought blocking Thought Content: + paranoid won't answer questions re: harm to self or others did not appear to be responding to internal stimuli Cognition: + attention not intact Insight: + severely impaired insight Judgement: + severely impaired judgement Vital Signs (Past 24 Hours) Last Vital Signs Temp 36.8 C 12/31/20 08:14 Pulse 99 H 12/31/20 08:14 Resp 14 12/30/20 06:40 BP 146/99 H 12/31/20 08:14 Pulse Ox 98 12/24/20 09:08 Results & Data ([facility]) Laboratory Results Laboratory Results - last 24 hr 12/31/20 21:00 Sodium 141 Potassium 3.5 Chloride 110 H Carbon Dioxide 20 L Anion Gap 11.0 BUN 26 H Creatinine 0.66 Est Cr Clr Drug Dosing Not Reportable Est GFR ( Amer) 112.1 Est GFR (Non-Af Amer) 96.7 BUN/Creatinine Ratio 38.6 H Glucose 103 H Calcium 9.8 Phosphorus 2.7 Albumin 4.4 TSH 2.040 Current Inpatient Medications Current Inpatient Medications: Current Inpatient Medications Acetaminophen (Acetaminophen 325 Mg Tab) 650 mg PO Q4H PRN PRN Reason: Headache or Minor Fever Stop: 01/21/21 01:14 Last Admin: 12/05/20 10:32 Dose: 650 mg Documented by: Al Hydrox/Mg Hydrox/Simethicone (Aluminum/Magnesium Susp 30 Ml Udc) 30 ml PO Q4H PRN PRN Reason: GI Upset Stop: 01/17/21 01:14 Last Admin: 12/04/20 12:57 Dose: 30 ml Documented by: Albuterol (Albuterol Hfa 8 Gm Inhaler) 2 puffs INH QID PRN; Protocol PRN Reason: shortness of breath or wheezing or cough Stop: 01/21/21 08:30 Aspirin (Aspirin 81 Mg Ectab) 81 mg PO DAILY [facility] Stop: 01/17/21 08:59 Last Admin: 01/01/21 07:51 Dose: Not Given Documented by: Clonazepam (Clonazepam 0.25 Mg Tab) 0.25 mg PO BID PRN PRN Reason: Anxiety Stop: 01/17/21 11:58 Diltiazem HCl (Diltiazem Hcl 180 Mg Capcr) 180 mg PO QAM [facility] Stop: 01/21/21 08:59 Last Admin: 01/01/21 07:51 Dose: Not Given Documented by: Docusate Sodium (Docusate Sodium 100 Mg Cap) 100 mg PO BID [facility] Stop: 01/21/21 11:59 Last Admin: 01/01/21 07:51 Dose: Not Given Documented by: Duloxetine HCl (Duloxetine Hcl 60 Mg Cap) 60 mg PO QAM [facility] Stop: 01/03/21 08:59 Last Admin: 01/01/21 07:52 Dose: Not Given Documented by: Ferrous Sulfate (Ferrous Sulfate 325 Mg Tab) 325 mg PO BIDM [facility] Stop: 01/21/21 18:24 Last Admin: 01/01/21 07:52 Dose: Not Given Documented by: Fish Oil ([place]-3 (Purified Fish Oil) 1 Gm Cap) 1 gm PO DAILY DUNIA Stop: 01/21/21 09:44 Last Admin: 01/01/21 07:52 Dose: Not Given Documented by: Gabapentin (Gabapentin 400 Mg Cap) 400 mg PO TID DUNIA Stop: 01/21/21 08:59 Last Admin: 01/01/21 07:52 Dose: Not Given Documented by: Ipratropium [place] (Ipratropium [place] Nasal [place] 0.06% 15ml) 2 sprays NA BID [facility] Stop: 01/21/21 08:59 Last Admin: 01/01/21 07:53 Dose: Not Given Documented by: Levothyroxine Sodium (Levothyroxine Sodium 88 Mcg Tablet) 88 mcg PO DAILYBB [facility] Stop: 01/18/21 07:59 Last Admin: 01/01/21 07:51 Dose: Not Given Documented by: Magnesium Hydroxide (Magnesium Hydroxide Susp 30 Ml Udc) 30 ml PO DAILY PRN PRN Reason: Constipation Stop: 01/21/21 01:14 Psyllium Hydrophilic Mucilloid (Psyllium 58.6% Powder Packet) 1 pkt PO QAM [facility] Stop: 01/26/21 11:29 Last Admin: 01/01/21 07:53 Dose: Not Given Documented by: Quetiapine Fumarate (Quetiapine Fumarate 200 Mg Tab) 400 mg PO HS [facility] Stop: 01/21/21 21:59 Last Admin: 12/31/20 21:49 Dose: Not Given Documented by: Quetiapine Fumarate (Quetiapine Fumarate 100 Mg Tablet) 100 mg PO DAILY DUNIA Stop: 01/30/21 08:59 Last Admin: 01/01/21 07:53 Dose: Not Given Documented by: Simvastatin (Simvastatin 40 Mg Tab) 40 mg PO HS [facility] Stop: 01/21/21 21:59 Last Admin: 12/31/20 21:49 Dose: Not Given Documented by: Sodium Chloride (Sodium Chloride 0.65% Na Soln 45 Ml ([place])) 1 - 2 sprays NA PRN PRN PRN Reason: Nasal Dryness/Congestion Stop: 01/21/21 01:14 Last Admin: 12/04/20 16:32 Dose: 2 sprays Documented by: Trazodone HCl (Trazodone Hcl 100 Mg Tab) 100 mg PO HS DUNIA Stop: 01/21/21 21:59 Last Admin: 12/31/20 21:49 Dose: Not Given Documented by: Umeclidinium [place] (Umeclidinium [place] 62.5mcg/Blister 7 Puffs/Inhaler) 1 puffs INH DAILY DUNIA; Protocol Stop: 01/17/21 09:44 Last Admin: 01/01/21 07:53 Dose: Not Given Documented by: Mental Health & Subst Abuse Tx Psychiatrist Name of Psychiatrist: Velvet Sanchez Psychiatrist's Psychiatric Appointment Comment: [id number] [facility] Community Health Specialist Name of Community Health Specialist: [facility] Service Unit - [facility] Phone Number for Community Health Specialist: [phone] Post Discharge Appointments Primary Care Physician Name Of Family Doctor: MAN - Dr. Lancaster (May, BENJAC) Primary Care Provider Appointment Comment: [address] [place] [address] Reggie [place] Specialist Name of Specialist: MAN Cardiology - Dr. Ga Villareal Phone Number for Specialist: [phone] Specialty Appointment Comment: [address] [facility], [address], [place] Contact Information Discharge
--- NOTE | 2021-01-01 16:20 | Communication Note ---
Date of Service: January 01, [address] Pacheco on 01/01. The patient is presently becoming catatonic and unable/unwilling to eat, drink, or take medication. BUN elevated from prior with elevated BUN:Cr ratio, indicating dehydration. She is at risk for or serious disability within next 30 days if continues to refuse medication/meals and agree with medication over objection.
[2021-01-01] MEDS: SIMVASTATIN 40 MG TAB PO SCH (19:19)
[2021-01-01] MEDS: QUEtiapine FUMARATE 200 MG TAB PO SCH (19:19)
[2021-01-01] MEDS ORDERED: LORazepam 1 MG TAB PO STA (19:46)
--- NOTE | 2021-01-01 20:06 | Communication Note ---
Date of Service: January 01, 2021 patient ambulated with nurses earlier this pm; input from Dr. Hunt appreciated. Patient responded to nurses when discussed likely need for SQ Lovenox within next 12-24 hrs if condition does not improve. Soon after patient staring/bordering on catatonia again. Contacted by nursing approximately 1940 as patient c/o SARABIA, chest discomfort due to tachy. Temp Pulse Resp BP Pulse Ox 36.8 C 105 H 16 156/102 H 100 12/31/20 08:14 01/01/21 19:31 01/01/21 14:28 01/01/21 19:31 01/01/21 19:31 EKG ordered with 1 mg Ativan for presumed panic and/or discontinuation syndrome from missed medication doses over past 3 days (ex. Cymbalta). Did take am meds mid afternoon so had ASA today. Will repeat vitals within 20 min of Ativan. Consider clonidine patch if will not take PO medication.
[2021-01-01] MEDS: traZODone HCL 100 MG TAB PO SCH (20:56)
[2021-01-02] MEDS: PSYLLIUM 58.6% POWDER PACKET PO SCH (08:08)
[2021-01-02] MEDS: dilTIAZem HCL 180 MG CAPCR PO SCH (08:09)
[2021-01-02] MEDS: ASPIRIN 81 MG ECTAB PO SCH (08:09)
[2021-01-02] MEDS: LEVOTHYROXINE SODIUM 88 MCG TABLET PO SCH (08:09)
[2021-01-02] MEDS: OMEGA-3 (PURIFIED FISH OIL) 1 GM CAP PO SCH (08:10)
[2021-01-02] MEDS: DULoxetine HCL 60 MG CAP PO SCH (08:10)
[2021-01-02] MEDS: FERROUS SULFATE 325 MG TAB PO SCH ×2 (08:10→17:19)
[2021-01-02] MEDS: UMECLIDINIUM BROMIDE 62.5MCG/BLISTER 7 PUFFS/INHALER INH SCH (08:11)
[2021-01-02] MEDS: GABAPENTIN 400 MG CAP PO SCH ×3 (08:11→20:15)
[2021-01-02] MEDS: IPRATROPIUM BROMIDE NASAL SPRAY 0.06% 15ML SCH ×2 (08:11→20:15)
[2021-01-02] MEDS: DOCUSATE SODIUM 100 MG CAP PO SCH ×2 (08:12→20:14)
[2021-01-02] MEDS: QUEtiapine FUMARATE 100 MG TABLET PO SCH (08:12)
--- NOTE | 2021-01-02 13:28 | Psychiatric Progress Note ---
Date of Service January 02, 2021 Impression / Recommendations Impression 60 yo female with schizoaffective disorder awaiting [facility] placement. Impression: more active on unit Plan[facility] bed date pending. Remains unable to care for safety and basic needs outside of the hospital setting. MNPR due to paranoia and hoarding behaviors. appreciate Dr. Hunt's input re: Lovenox and support for IMs if patient exhibits signs of catatonia/med refusals again given medical risks. Risk Factors Assessment Male: No : Yes Do You Have Access To A Gun?: No Health Problems: Yes Mental Health Diagnoses: Yes Substance Use Disorders: No Previous Attempt: Yes Previous Psychiatric Hospitalization: Yes Protective Factors Assessment Yarsanism Beliefs: Yes : No Responsible for Young Children: No Employed: No Interval History Identifying Information 60 yo female with schizoaffective disorder currently on 305 commitment, MNPR due to hoarding and paranoia. Chief Complaint "I'll come out today", no further explaination for time in bed Review of Systems Sleep Information Total Hours of Sleep: 7.25 Sleep Comments: pt given trazodone per rn. pt on q-15 minute checks Meal Information Percent Meal Consumed - Breakfast: 50 Percent Meal Consumed - Lunch: 0 Percent Meal Consumed - Dinner: 25 Nutrition Comment: Fluids at bedside Subjective Subjective Patient was seen & assessed and interval progress reviewed with nursing and social work. contracted with patient to be out of room for meals/ambulating as she is motivated to avoid sq lovenox. Accepted last 3 dosing times of medications. Appears less sedated today. Physical Exam Psychiatric Orientation: alert, oriented x 3 and + guarded Apperance: appropriately dressed and + disheveled Eye Contact: + fair eye contact Motor Behavior: steady gait and station and no abnormal motor movements Affect: + depressed affect and + blunted affect Mood: + anxious mood Thought Process: + concrete thought process Thought Content: + paranoid Suicidal Thoughts: denies suicidal thoughts Homicidal Thoughts: denies homicidal thoughts Hallucinations: no auditory hallucinations and no visual hallucinations Cognition: language grossly intact; + attention not intact Estimated Intelligence: consistent with education level Insight: + poor insight Judgement: + poor judgement Vital Signs (Past 24 Hours) Last Vital Signs Temp 36.6 C 01/01/21 20:48 Pulse 101 H 01/01/21 20:17 Resp 16 01/01/21 14:28 BP 119/75 01/01/21 20:17 Pulse Ox 97 01/01/21 20:17 Results & Data ([facility]) Current Inpatient Medications Current Inpatient Medications: Current Inpatient Medications Acetaminophen (Acetaminophen 325 Mg Tab) 650 mg PO Q4H PRN PRN Reason: Headache or Minor Fever Stop: 01/21/21 01:14 Last Admin: 12/05/20 10:32 Dose: 650 mg Documented by: Al Hydrox/Mg Hydrox/Simethicone (Aluminum/Magnesium Susp 30 Ml Udc) 30 ml PO Q4H PRN PRN Reason: GI Upset Stop: 01/17/21 01:14 Last Admin: 12/04/20 12:57 Dose: 30 ml Documented by: Albuterol (Albuterol Hfa 8 Gm Inhaler) 2 puffs INH QID PRN; Protocol PRN Reason: shortness of breath or wheezing or cough Stop: 01/21/21 08:30 Aspirin (Aspirin 81 Mg Ectab) 81 mg PO DAILY [facility] Stop: 01/17/21 08:59 Last Admin: 01/02/21 08:09 Dose: 81 mg Documented by: Clonazepam (Clonazepam 0.25 Mg Tab) 0.25 mg PO BID PRN PRN Reason: Anxiety Stop: 01/17/21 11:58 Diltiazem HCl (Diltiazem Hcl 180 Mg Capcr) 180 mg PO QAM [facility] Stop: 01/21/21 08:59 Last Admin: 01/02/21 08:09 Dose: 180 mg Documented by: Docusate Sodium (Docusate Sodium 100 Mg Cap) 100 mg PO BID [facility] Stop: 01/21/21 11:59 Last Admin: 01/02/21 08:12 Dose: 100 mg Documented by: Duloxetine HCl (Duloxetine Hcl 60 Mg Cap) 60 mg PO QAM [facility] Stop: 01/03/21 08:59 Last Admin: 01/02/21 08:10 Dose: 60 mg Documented by: Ferrous Sulfate (Ferrous Sulfate 325 Mg Tab) 325 mg PO BIDM [facility] Stop: 01/21/21 18:24 Last Admin: 01/02/21 08:10 Dose: 325 mg Documented by: Fish Oil ([place]-3 (Purified Fish Oil) 1 Gm Cap) 1 gm PO DAILY [facility] Stop: 01/21/21 09:44 Last Admin: 01/02/21 08:10 Dose: 1 gm Documented by: Gabapentin (Gabapentin 400 Mg Cap) 400 mg PO TID [facility] Stop: 01/21/21 08:59 Last Admin: 01/02/21 08:11 Dose: 400 mg Documented by: Ipratropium Golden (Ipratropium Golden Nasal [place] 0.06% 15ml) 2 sprays NA BID [facility] Stop: 01/21/21 08:59 Last Admin: 01/02/21 08:11 Dose: 2 sprays Documented by: Levothyroxine Sodium (Levothyroxine Sodium 88 Mcg Tablet) 88 mcg PO DAILYBB [facility] Stop: 01/18/21 07:59 Last Admin: 01/02/21 08:09 Dose: 88 mcg Documented by: Magnesium Hydroxide (Magnesium Hydroxide Susp 30 Ml Udc) 30 ml PO DAILY PRN PRN Reason: Constipation Stop: 01/21/21 01:14 Psyllium Hydrophilic Mucilloid (Psyllium 58.6% Powder Packet) 1 pkt PO QAM [facility] Stop: 01/26/21 11:29 Last Admin: 01/02/21 08:08 Dose: 1 pkt Documented by: Quetiapine Fumarate (Quetiapine Fumarate 200 Mg Tab) 400 mg PO [facility] Stop: 01/21/21 21:59 Last Admin: 01/01/21 19:19 Dose: 400 mg Documented by: Quetiapine Fumarate (Quetiapine Fumarate 100 Mg Tablet) 100 mg PO DAILY [facility] Stop: 01/30/21 08:59 Last Admin: 01/02/21 08:12 Dose: 100 mg Documented by: Simvastatin (Simvastatin 40 Mg Tab) 40 mg PO [facility] Stop: 01/21/21 21:59 Last Admin: 01/01/21 19:19 Dose: 40 mg Documented by: Sodium Chloride (Sodium Chloride 0.65% Na Soln 45 Ml ([place])) 1 - 2 sprays NA PRN PRN PRN Reason: Nasal Dryness/Congestion Stop: 01/21/21 01:14 Last Admin: 12/04/20 16:32 Dose: 2 sprays Documented by: Trazodone HCl (Trazodone Hcl 100 Mg Tab) 100 mg PO [facility] Stop: 01/21/21 21:59 Last Admin: 01/01/21 20:56 Dose: Not Given Documented by: Umeclidinium Golden (Umeclidinium Golden 62.5mcg/Blister 7 Puffs/Inhaler) 1 puffs INH DAILY [facility]; Protocol Stop: 01/17/21 09:44 Last Admin: 01/02/21 08:11 Dose: 1 puffs Documented by: Mental Health & Subst Abuse Tx Psychiatrist Name of Psychiatrist: Velvet Sanchez Psychiatrist's Psychiatric Appointment Comment: [id number] [facility] Parachute Panel Joiner Name of Parachute Panel Joiner: [facility] Service [facility] Phone Number for Parachute Panel Joiner: [phone] Post Discharge Appointments Primary Care Physician Name Of Family Doctor: MAN - Dr. Lancaster (May, PAUrvashiC) Primary Care Provider Appointment Comment: [address] [place] [address] Corey Paredes Specialist Name of Specialist: MAN Cardiology - Dr. Ga Villareal Phone Number for Specialist: [phone] Specialty Appointment Comment: [address] [facility], [address], [place] Contact Information Discharge
[2021-01-02] MEDS: clonazePAM 0.25 MG TAB PO PRN (15:11)
[2021-01-02] MEDS: traZODone HCL 100 MG TAB PO SCH (20:14)
[2021-01-02] MEDS: SIMVASTATIN 40 MG TAB PO SCH (20:14)
[2021-01-02] MEDS: QUEtiapine FUMARATE 200 MG TAB PO SCH (20:15)
[2021-01-03] MEDS: PSYLLIUM 58.6% POWDER PACKET PO SCH (07:26)
[2021-01-03] MEDS: LEVOTHYROXINE SODIUM 88 MCG TABLET PO SCH (07:26)
[2021-01-03] MEDS: QUEtiapine FUMARATE 100 MG TABLET PO SCH (07:27)
[2021-01-03] MEDS: OMEGA-3 (PURIFIED FISH OIL) 1 GM CAP PO SCH (07:27)
[2021-01-03] MEDS: ASPIRIN 81 MG ECTAB PO SCH (07:27)
[2021-01-03] MEDS: FERROUS SULFATE 325 MG TAB PO SCH ×2 (07:27→17:58)
[2021-01-03] MEDS: DOCUSATE SODIUM 100 MG CAP PO SCH ×2 (07:27→21:33)
[2021-01-03] MEDS: GABAPENTIN 400 MG CAP PO SCH ×3 (07:27→21:34)
[2021-01-03] MEDS: dilTIAZem HCL 180 MG CAPCR PO SCH (07:27)
[2021-01-03] MEDS: IPRATROPIUM BROMIDE NASAL SPRAY 0.06% 15ML SCH ×2 (07:28→21:34)
[2021-01-03] MEDS: UMECLIDINIUM BROMIDE 62.5MCG/BLISTER 7 PUFFS/INHALER INH SCH (07:28)
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
[2021-01-03] MEDS: clonazePAM 0.25 MG TAB PO PRN (10:29)
[2021-01-03] MEDS: ACETAMINOPHEN 325 MG TAB PO PRN ×2 (13:20→17:58)
--- NOTE | 2021-01-03 18:04 | Electrocardiogram Report ---
Test Reason : Blood Pressure : / mmHG Vent. Rate : 102 BPM Atrial Rate : 102 BPM P-R Int : 132 ms QRS Dur : 092 ms QT Int : 368 ms P-R-T Axes : 071 -21 087 degrees QTc Int : 479 ms Sinus tachycardia Possible Left atrial enlargement Low voltage QRS Possible Anterolateral infarct (cited on or before 06-NOV-2010) Inferior infarct (cited on or before 31-OCT-2010) Nonspecific T wave abnormality Abnormal ECG When compared with ECG of 05-DEC-2020 16:02, Questionable change in initial forces of Anterior leads Nonspecific T wave abnormality now evident in Anterolateral leads Confirmed by Yaniv Hazel ([id number]) on 01/03/2021 6:03:47 PM Referred By: Stephanie Pacheco Confirmed By:Yaniv Hazel
[2021-01-03] MEDS: QUEtiapine FUMARATE 200 MG TAB PO SCH (21:32)
[2021-01-03] MEDS: SIMVASTATIN 40 MG TAB PO SCH (21:33)
[2021-01-03] MEDS: traZODone HCL 100 MG TAB PO SCH (21:34)
[2021-01-04] MEDS: UMECLIDINIUM BROMIDE 62.5MCG/BLISTER 7 PUFFS/INHALER INH SCH (08:40)
[2021-01-04] MEDS: IPRATROPIUM BROMIDE NASAL SPRAY 0.06% 15ML SCH ×2 (08:41→21:27)
[2021-01-04] MEDS: LEVOTHYROXINE SODIUM 88 MCG TABLET PO SCH (08:42)
[2021-01-04] MEDS: ASPIRIN 81 MG ECTAB PO SCH (08:42)
[2021-01-04] MEDS: FERROUS SULFATE 325 MG TAB PO SCH ×2 (08:43→17:23)
[2021-01-04] MEDS: OMEGA-3 (PURIFIED FISH OIL) 1 GM CAP PO SCH (08:43)
[2021-01-04] MEDS: DOCUSATE SODIUM 100 MG CAP PO SCH ×2 (08:43→21:28)
[2021-01-04] MEDS: GABAPENTIN 400 MG CAP PO SCH ×3 (08:44→21:28)
[2021-01-04] MEDS: QUEtiapine FUMARATE 100 MG TABLET PO SCH (08:45)
[2021-01-04] MEDS: PSYLLIUM 58.6% POWDER PACKET PO SCH (08:46)
[2021-01-04] MEDS: dilTIAZem HCL 180 MG CAPCR PO SCH (08:46)
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
[2021-01-04] MEDS: SIMVASTATIN 40 MG TAB PO SCH (21:28)
[2021-01-04] MEDS: QUEtiapine FUMARATE 200 MG TAB PO SCH (21:28)
[2021-01-04] MEDS: traZODone HCL 100 MG TAB PO SCH (21:28)
[2021-01-05] MEDS: LEVOTHYROXINE SODIUM 88 MCG TABLET PO SCH (06:58)
[2021-01-05] MEDS: UMECLIDINIUM BROMIDE 62.5MCG/BLISTER 7 PUFFS/INHALER INH SCH (07:58)
[2021-01-05] MEDS: IPRATROPIUM BROMIDE NASAL SPRAY 0.06% 15ML SCH ×2 (07:58→20:51)
[2021-01-05] MEDS: ASPIRIN 81 MG ECTAB PO SCH (07:59)
[2021-01-05] MEDS: OMEGA-3 (PURIFIED FISH OIL) 1 GM CAP PO SCH (08:00)
[2021-01-05] MEDS: FERROUS SULFATE 325 MG TAB PO SCH ×2 (08:00→17:29)
[2021-01-05] MEDS: dilTIAZem HCL 180 MG CAPCR PO SCH (08:00)
[2021-01-05] MEDS: GABAPENTIN 400 MG CAP PO SCH ×3 (08:00→20:51)
[2021-01-05] MEDS: DOCUSATE SODIUM 100 MG CAP PO SCH ×2 (08:00→20:51)
[2021-01-05] MEDS: PSYLLIUM 58.6% POWDER PACKET PO SCH (08:00)
[2021-01-05] MEDS: QUEtiapine FUMARATE 100 MG TABLET PO SCH (08:01)
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
[2021-01-05] MEDS: QUEtiapine FUMARATE 200 MG TAB PO SCH (20:52)
[2021-01-05] MEDS: SIMVASTATIN 40 MG TAB PO SCH (20:52)
[2021-01-05] MEDS: traZODone HCL 100 MG TAB PO SCH (20:52)
[2021-01-06] MEDS: LEVOTHYROXINE SODIUM 88 MCG TABLET PO SCH (09:31)
[2021-01-06] MEDS: DOCUSATE SODIUM 100 MG CAP PO SCH ×2 (09:37→20:54)
[2021-01-06] MEDS: ASPIRIN 81 MG ECTAB PO SCH (09:37)
[2021-01-06] MEDS: FERROUS SULFATE 325 MG TAB PO SCH ×2 (09:37→17:12)
[2021-01-06] MEDS: GABAPENTIN 400 MG CAP PO SCH ×3 (09:38→20:54)
[2021-01-06] MEDS: OMEGA-3 (PURIFIED FISH OIL) 1 GM CAP PO SCH (09:38)
[2021-01-06] MEDS: IPRATROPIUM BROMIDE NASAL SPRAY 0.06% 15ML SCH ×2 (09:38→20:56)
[2021-01-06] MEDS: dilTIAZem HCL 180 MG CAPCR PO SCH (09:38)
[2021-01-06] MEDS: PSYLLIUM 58.6% POWDER PACKET PO SCH (09:39)
[2021-01-06] MEDS: UMECLIDINIUM BROMIDE 62.5MCG/BLISTER 7 PUFFS/INHALER INH SCH (09:39)
[2021-01-06] MEDS: QUEtiapine FUMARATE 100 MG TABLET PO SCH (09:39)
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
[2021-01-06] MEDS: QUEtiapine FUMARATE 200 MG TAB PO SCH (20:55)
[2021-01-06] MEDS: SIMVASTATIN 40 MG TAB PO SCH (20:55)
[2021-01-06] MEDS: traZODone HCL 100 MG TAB PO SCH (20:56)
[2021-01-07] MEDS: IPRATROPIUM BROMIDE NASAL SPRAY 0.06% 15ML SCH ×2 (08:35→21:34)
[2021-01-07] MEDS: PSYLLIUM 58.6% POWDER PACKET PO SCH (08:35)
[2021-01-07] MEDS: UMECLIDINIUM BROMIDE 62.5MCG/BLISTER 7 PUFFS/INHALER INH SCH (08:35)
[2021-01-07] MEDS: LEVOTHYROXINE SODIUM 88 MCG TABLET PO SCH (08:36)
[2021-01-07] MEDS: ASPIRIN 81 MG ECTAB PO SCH (08:36)
[2021-01-07] MEDS: OMEGA-3 (PURIFIED FISH OIL) 1 GM CAP PO SCH (08:37)
[2021-01-07] MEDS: DOCUSATE SODIUM 100 MG CAP PO SCH ×2 (08:37→21:32)
[2021-01-07] MEDS: GABAPENTIN 400 MG CAP PO SCH ×3 (08:37→21:34)
[2021-01-07] MEDS: FERROUS SULFATE 325 MG TAB PO SCH ×2 (08:38→17:20)
[2021-01-07] MEDS: dilTIAZem HCL 180 MG CAPCR PO SCH (08:38)
[2021-01-07] MEDS: QUEtiapine FUMARATE 100 MG TABLET PO SCH (08:38)
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
[2021-01-07] MEDS: QUEtiapine FUMARATE 200 MG TAB PO SCH (21:33)
[2021-01-07] MEDS: traZODone HCL 100 MG TAB PO SCH (21:34)
[2021-01-07] MEDS: SIMVASTATIN 40 MG TAB PO SCH (21:34)
[2021-01-08] MEDS: PSYLLIUM 58.6% POWDER PACKET PO SCH (08:35)
[2021-01-08] MEDS: LEVOTHYROXINE SODIUM 88 MCG TABLET PO SCH (08:36)
[2021-01-08] MEDS: ASPIRIN 81 MG ECTAB PO SCH (08:36)
[2021-01-08] MEDS: IPRATROPIUM BROMIDE NASAL SPRAY 0.06% 15ML SCH ×2 (08:37→21:21)
[2021-01-08] MEDS: DOCUSATE SODIUM 100 MG CAP PO SCH ×2 (08:37→21:20)
[2021-01-08] MEDS: FERROUS SULFATE 325 MG TAB PO SCH ×2 (08:37→17:04)
[2021-01-08] MEDS: OMEGA-3 (PURIFIED FISH OIL) 1 GM CAP PO SCH (08:37)
[2021-01-08] MEDS: UMECLIDINIUM BROMIDE 62.5MCG/BLISTER 7 PUFFS/INHALER INH SCH (08:37)
[2021-01-08] MEDS: GABAPENTIN 400 MG CAP PO SCH ×3 (08:37→21:21)
[2021-01-08] MEDS: QUEtiapine FUMARATE 100 MG TABLET PO SCH (08:37)
[2021-01-08] MEDS: dilTIAZem HCL 180 MG CAPCR PO SCH (08:42)
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
[2021-01-08] MEDS: QUEtiapine FUMARATE 200 MG TAB PO SCH (21:20)
[2021-01-08] MEDS: traZODone HCL 100 MG TAB PO SCH (21:21)
[2021-01-08] MEDS: SIMVASTATIN 40 MG TAB PO SCH (21:21)
[2021-01-09] MEDS: PSYLLIUM 58.6% POWDER PACKET PO SCH (09:59)
[2021-01-09] MEDS: LEVOTHYROXINE SODIUM 88 MCG TABLET PO SCH (10:00)
[2021-01-09] MEDS: GABAPENTIN 400 MG CAP PO SCH ×3 (10:01→21:00)
[2021-01-09] MEDS: dilTIAZem HCL 180 MG CAPCR PO SCH (10:01)
[2021-01-09] MEDS: OMEGA-3 (PURIFIED FISH OIL) 1 GM CAP PO SCH (10:01)
[2021-01-09] MEDS: DOCUSATE SODIUM 100 MG CAP PO SCH ×2 (10:01→20:59)
[2021-01-09] MEDS: FERROUS SULFATE 325 MG TAB PO SCH ×2 (10:01→17:16)
[2021-01-09] MEDS: ASPIRIN 81 MG ECTAB PO SCH (10:01)
[2021-01-09] MEDS: QUEtiapine FUMARATE 100 MG TABLET PO SCH (10:02)
[2021-01-09] MEDS: IPRATROPIUM BROMIDE NASAL SPRAY 0.06% 15ML SCH ×2 (10:02→21:00)
[2021-01-09] MEDS: UMECLIDINIUM BROMIDE 62.5MCG/BLISTER 7 PUFFS/INHALER INH SCH (10:02)
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
[2021-01-09] MEDS: ACETAMINOPHEN 325 MG TAB PO PRN (13:26)
[2021-01-09] MEDS ORDERED: BACITRACIN OINT 15 GM TUBE EXT ONE (13:27)
[2021-01-09] MEDS: traZODone HCL 100 MG TAB PO SCH (21:00)
[2021-01-09] MEDS: SIMVASTATIN 40 MG TAB PO SCH (21:00)
[2021-01-09] MEDS: QUEtiapine FUMARATE 200 MG TAB PO SCH (21:00)
[2021-01-10] MEDS: dilTIAZem HCL 180 MG CAPCR PO SCH (07:41)
[2021-01-10] MEDS: LEVOTHYROXINE SODIUM 88 MCG TABLET PO SCH (07:41)
[2021-01-10] MEDS: ASPIRIN 81 MG ECTAB PO SCH (07:41)
[2021-01-10] MEDS: OMEGA-3 (PURIFIED FISH OIL) 1 GM CAP PO SCH (07:42)
[2021-01-10] MEDS: DOCUSATE SODIUM 100 MG CAP PO SCH ×2 (07:42→21:27)
[2021-01-10] MEDS: FERROUS SULFATE 325 MG TAB PO SCH ×2 (07:42→17:30)
[2021-01-10] MEDS: GABAPENTIN 400 MG CAP PO SCH ×3 (07:43→21:29)
[2021-01-10] MEDS: PSYLLIUM 58.6% POWDER PACKET PO SCH (07:43)
[2021-01-10] MEDS: IPRATROPIUM BROMIDE NASAL SPRAY 0.06% 15ML SCH ×2 (07:43→21:34)
[2021-01-10] MEDS: QUEtiapine FUMARATE 100 MG TABLET PO SCH (07:44)
[2021-01-10] MEDS: UMECLIDINIUM BROMIDE 62.5MCG/BLISTER 7 PUFFS/INHALER INH SCH (09:03)
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
[2021-01-10] MEDS: QUEtiapine FUMARATE 200 MG TAB PO SCH (21:27)
[2021-01-10] MEDS: traZODone HCL 100 MG TAB PO SCH (21:28)
[2021-01-10] MEDS: SIMVASTATIN 40 MG TAB PO SCH (21:28)
[2021-01-11] MEDS: DOCUSATE SODIUM 100 MG CAP PO SCH ×2 (08:52→21:22)
[2021-01-11] MEDS: LEVOTHYROXINE SODIUM 88 MCG TABLET PO SCH (08:52)
[2021-01-11] MEDS: OMEGA-3 (PURIFIED FISH OIL) 1 GM CAP PO SCH (08:52)
[2021-01-11] MEDS: ASPIRIN 81 MG ECTAB PO SCH (08:52)
[2021-01-11] MEDS: dilTIAZem HCL 180 MG CAPCR PO SCH (08:52)
[2021-01-11] MEDS: FERROUS SULFATE 325 MG TAB PO SCH ×2 (08:52→16:55)
[2021-01-11] MEDS: GABAPENTIN 400 MG CAP PO SCH ×3 (08:52→21:22)
[2021-01-11] MEDS: PSYLLIUM 58.6% POWDER PACKET PO SCH (08:53)
[2021-01-11] MEDS: UMECLIDINIUM BROMIDE 62.5MCG/BLISTER 7 PUFFS/INHALER INH SCH (08:53)
[2021-01-11] MEDS: IPRATROPIUM BROMIDE NASAL SPRAY 0.06% 15ML SCH ×2 (08:53→21:21)
[2021-01-11] MEDS: QUEtiapine FUMARATE 100 MG TABLET PO SCH (08:53)
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
[2021-01-11] MEDS: SIMVASTATIN 40 MG TAB PO SCH (21:21)
[2021-01-11] MEDS: QUEtiapine FUMARATE 200 MG TAB PO SCH (21:21)
[2021-01-11] MEDS: traZODone HCL 100 MG TAB PO SCH (21:22)
[2021-01-12] MEDS: PSYLLIUM 58.6% POWDER PACKET PO SCH (09:20)
[2021-01-12] MEDS: IPRATROPIUM BROMIDE NASAL SPRAY 0.06% 15ML SCH ×2 (09:22→21:20)
[2021-01-12] MEDS: UMECLIDINIUM BROMIDE 62.5MCG/BLISTER 7 PUFFS/INHALER INH SCH (09:22)
[2021-01-12] MEDS: LEVOTHYROXINE SODIUM 88 MCG TABLET PO SCH (09:22)
[2021-01-12] MEDS: GABAPENTIN 400 MG CAP PO SCH ×3 (09:23→21:20)
[2021-01-12] MEDS: DOCUSATE SODIUM 100 MG CAP PO SCH ×2 (09:23→21:22)
[2021-01-12] MEDS: OMEGA-3 (PURIFIED FISH OIL) 1 GM CAP PO SCH (09:23)
[2021-01-12] MEDS: FERROUS SULFATE 325 MG TAB PO SCH ×2 (09:23→17:41)
[2021-01-12] MEDS: ASPIRIN 81 MG ECTAB PO SCH (09:23)
[2021-01-12] MEDS: QUEtiapine FUMARATE 100 MG TABLET PO SCH (09:24)
[2021-01-12] MEDS: dilTIAZem HCL 180 MG CAPCR PO SCH (09:32)
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
[2021-01-12] MEDS: clonazePAM 0.25 MG TAB PO PRN ×2 (16:14→21:17)
[2021-01-12] MEDS: QUEtiapine FUMARATE 200 MG TAB PO SCH (21:15)
[2021-01-12] MEDS: traZODone HCL 100 MG TAB PO SCH (21:16)
[2021-01-12] MEDS: SIMVASTATIN 40 MG TAB PO SCH (21:22)
[2021-01-13] MEDS: LEVOTHYROXINE SODIUM 88 MCG TABLET PO SCH (08:21)
[2021-01-13] MEDS: ASPIRIN 81 MG ECTAB PO SCH (08:22)
[2021-01-13] MEDS: dilTIAZem HCL 180 MG CAPCR PO SCH (08:22)
[2021-01-13] MEDS: FERROUS SULFATE 325 MG TAB PO SCH ×2 (08:23→17:25)
[2021-01-13] MEDS: IPRATROPIUM BROMIDE NASAL SPRAY 0.06% 15ML SCH ×2 (08:23→21:26)
[2021-01-13] MEDS: GABAPENTIN 400 MG CAP PO SCH ×3 (08:23→21:26)
[2021-01-13] MEDS: DOCUSATE SODIUM 100 MG CAP PO SCH ×2 (08:23→21:26)
[2021-01-13] MEDS: OMEGA-3 (PURIFIED FISH OIL) 1 GM CAP PO SCH (08:23)
[2021-01-13] MEDS: UMECLIDINIUM BROMIDE 62.5MCG/BLISTER 7 PUFFS/INHALER INH SCH (08:24)
[2021-01-13] MEDS: PSYLLIUM 58.6% POWDER PACKET PO SCH (08:24)
[2021-01-13] MEDS: QUEtiapine FUMARATE 100 MG TABLET PO SCH (08:24)
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
[2021-01-13] MEDS: traZODone HCL 100 MG TAB PO SCH (21:27)
[2021-01-13] MEDS: SIMVASTATIN 40 MG TAB PO SCH (21:27)
[2021-01-13] MEDS: QUEtiapine FUMARATE 200 MG TAB PO SCH (21:28)
[2021-01-14] MEDS: UMECLIDINIUM BROMIDE 62.5MCG/BLISTER 7 PUFFS/INHALER INH SCH (08:29)
[2021-01-14] MEDS: IPRATROPIUM BROMIDE NASAL SPRAY 0.06% 15ML SCH ×2 (08:30→21:15)
[2021-01-14] MEDS: PSYLLIUM 58.6% POWDER PACKET PO SCH (08:30)
[2021-01-14] MEDS: ASPIRIN 81 MG ECTAB PO SCH (08:31)
[2021-01-14] MEDS: LEVOTHYROXINE SODIUM 88 MCG TABLET PO SCH (08:31)
[2021-01-14] MEDS: dilTIAZem HCL 180 MG CAPCR PO SCH (08:31)
[2021-01-14] MEDS: DOCUSATE SODIUM 100 MG CAP PO SCH ×2 (08:32→21:16)
[2021-01-14] MEDS: FERROUS SULFATE 325 MG TAB PO SCH ×2 (08:32→17:28)
[2021-01-14] MEDS: OMEGA-3 (PURIFIED FISH OIL) 1 GM CAP PO SCH (08:32)
[2021-01-14] MEDS: QUEtiapine FUMARATE 100 MG TABLET PO SCH (08:33)
[2021-01-14] MEDS: GABAPENTIN 400 MG CAP PO SCH ×3 (08:33→21:16)
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
[2021-01-14] MEDS: QUEtiapine FUMARATE 200 MG TAB PO SCH (21:16)
[2021-01-14] MEDS: SIMVASTATIN 40 MG TAB PO SCH (21:17)
[2021-01-14] MEDS: traZODone HCL 100 MG TAB PO SCH (21:17)
[2021-01-15] MEDS: PSYLLIUM 58.6% POWDER PACKET PO SCH (08:02)
[2021-01-15] MEDS: LEVOTHYROXINE SODIUM 88 MCG TABLET PO SCH (08:04)
[2021-01-15] MEDS: DOCUSATE SODIUM 100 MG CAP PO SCH ×2 (08:04→21:14)
[2021-01-15] MEDS: dilTIAZem HCL 180 MG CAPCR PO SCH (08:04)
[2021-01-15] MEDS: ASPIRIN 81 MG ECTAB PO SCH (08:04)
[2021-01-15] MEDS: FERROUS SULFATE 325 MG TAB PO SCH ×2 (08:05→17:12)
[2021-01-15] MEDS: QUEtiapine FUMARATE 100 MG TABLET PO SCH (08:05)
[2021-01-15] MEDS: OMEGA-3 (PURIFIED FISH OIL) 1 GM CAP PO SCH (08:05)
[2021-01-15] MEDS: GABAPENTIN 400 MG CAP PO SCH ×3 (08:05→21:14)
[2021-01-15] MEDS: IPRATROPIUM BROMIDE NASAL SPRAY 0.06% 15ML SCH ×2 (08:06→21:14)
[2021-01-15] MEDS: UMECLIDINIUM BROMIDE 62.5MCG/BLISTER 7 PUFFS/INHALER INH SCH (08:06)
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
[2021-01-15] MEDS: QUEtiapine FUMARATE 200 MG TAB PO SCH (21:14)
[2021-01-15] MEDS: SIMVASTATIN 40 MG TAB PO SCH (21:15)
[2021-01-15] MEDS: traZODone HCL 100 MG TAB PO SCH (21:15)
[2021-01-16] MEDS: PSYLLIUM 58.6% POWDER PACKET PO SCH (08:02)
[2021-01-16] MEDS: LEVOTHYROXINE SODIUM 88 MCG TABLET PO SCH (08:04)
[2021-01-16] MEDS: ASPIRIN 81 MG ECTAB PO SCH (08:05)
[2021-01-16] MEDS: dilTIAZem HCL 180 MG CAPCR PO SCH (08:06)
[2021-01-16] MEDS: FERROUS SULFATE 325 MG TAB PO SCH ×2 (08:06→17:05)
[2021-01-16] MEDS: DOCUSATE SODIUM 100 MG CAP PO SCH ×2 (08:06→21:09)
[2021-01-16] MEDS: OMEGA-3 (PURIFIED FISH OIL) 1 GM CAP PO SCH (08:06)
[2021-01-16] MEDS: GABAPENTIN 400 MG CAP PO SCH ×3 (08:07→21:09)
[2021-01-16] MEDS: QUEtiapine FUMARATE 100 MG TABLET PO SCH (08:07)
[2021-01-16] MEDS: IPRATROPIUM BROMIDE NASAL SPRAY 0.06% 15ML SCH ×2 (08:07→21:08)
[2021-01-16] MEDS: UMECLIDINIUM BROMIDE 62.5MCG/BLISTER 7 PUFFS/INHALER INH SCH (08:08)
[2021-01-16] MEDS: clonazePAM 0.25 MG TAB PO PRN (13:19)
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
[2021-01-16 20:29] LABS: Appearance Urine Clear (Clear); Bacteria Urine Automated Negative (Negative); Bilirubin Urine Negative (Negative); Blood Urine Negative (Negative); Cast Urine Automated 0 /lpf (0-5); Color Urine Yellow; Epithelial Cell Urine Auto 0-5 /lpf (0-5); Glucose Urine UA Negative (Negative); Ketones Urine Negative (Negative); Leukocyte Esterase Urine Trace (Negative); Nitrite Urine Negative (Negative); Protein Urine Negative (Negative); RBC Urine Automated 0-4 /hpf (0-4); Specific Gravity Urine 1.004 (1.000-1.030); Urobilinogen Urine Negative (Negative); WBC Urine Automated 0 /hpf (0-5)
[2021-01-16] MEDS: QUEtiapine FUMARATE 200 MG TAB PO SCH (21:08)
[2021-01-16] MEDS: traZODone HCL 100 MG TAB PO SCH (21:09)
[2021-01-16] MEDS: SIMVASTATIN 40 MG TAB PO SCH (21:09)
[2021-01-17] MEDS: LEVOTHYROXINE SODIUM 88 MCG TABLET PO SCH (08:09)
[2021-01-17] MEDS: GABAPENTIN 400 MG CAP PO SCH ×3 (08:09→20:24)
[2021-01-17] MEDS: DOCUSATE SODIUM 100 MG CAP PO SCH ×2 (08:09→20:23)
[2021-01-17] MEDS: OMEGA-3 (PURIFIED FISH OIL) 1 GM CAP PO SCH (08:09)
[2021-01-17] MEDS: dilTIAZem HCL 180 MG CAPCR PO SCH (08:09)
[2021-01-17] MEDS: FERROUS SULFATE 325 MG TAB PO SCH ×2 (08:09→17:03)
[2021-01-17] MEDS: QUEtiapine FUMARATE 100 MG TABLET PO SCH (08:10)
[2021-01-17] MEDS: PSYLLIUM 58.6% POWDER PACKET PO SCH (08:10)
[2021-01-17] MEDS: UMECLIDINIUM BROMIDE 62.5MCG/BLISTER 7 PUFFS/INHALER INH SCH (08:10)
[2021-01-17] MEDS: IPRATROPIUM BROMIDE NASAL SPRAY 0.06% 15ML SCH ×2 (08:10→20:24)
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
[2021-01-17] MEDS: QUEtiapine FUMARATE 200 MG TAB PO SCH (20:23)
[2021-01-17] MEDS: traZODone HCL 100 MG TAB PO SCH (20:24)
[2021-01-17] MEDS: SIMVASTATIN 40 MG TAB PO SCH (20:24)
[2021-01-18] MEDS: IPRATROPIUM BROMIDE NASAL SPRAY 0.06% 15ML SCH ×3 (08:14→23:04)
[2021-01-18] MEDS: UMECLIDINIUM BROMIDE 62.5MCG/BLISTER 7 PUFFS/INHALER INH SCH (08:15)
[2021-01-18] MEDS: ASPIRIN 81 MG ECTAB PO SCH (08:16)
[2021-01-18] MEDS: LEVOTHYROXINE SODIUM 88 MCG TABLET PO SCH (08:16)
[2021-01-18] MEDS: FERROUS SULFATE 325 MG TAB PO SCH ×2 (08:17→16:44)
[2021-01-18] MEDS: DOCUSATE SODIUM 100 MG CAP PO SCH ×3 (08:17→23:04)
[2021-01-18] MEDS: dilTIAZem HCL 180 MG CAPCR PO SCH (08:17)
[2021-01-18] MEDS: PSYLLIUM 58.6% POWDER PACKET PO SCH (08:18)
[2021-01-18] MEDS: GABAPENTIN 400 MG CAP PO SCH ×4 (08:18→23:04)
[2021-01-18] MEDS: QUEtiapine FUMARATE 100 MG TABLET PO SCH (08:18)
[2021-01-18] MEDS: OMEGA-3 (PURIFIED FISH OIL) 1 GM CAP PO SCH (08:18)
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
[2021-01-18] MEDS: SIMVASTATIN 40 MG TAB PO SCH ×2 (21:14→23:04)
[2021-01-18] MEDS: traZODone HCL 100 MG TAB PO SCH ×2 (21:15→23:05)
[2021-01-18] MEDS: QUEtiapine FUMARATE 200 MG TAB PO SCH ×2 (21:15→23:04)
[2021-01-19] MEDS: LEVOTHYROXINE SODIUM 88 MCG TABLET PO SCH (08:48)
[2021-01-19] MEDS: GABAPENTIN 400 MG CAP PO SCH ×3 (08:48→21:17)
[2021-01-19] MEDS: PSYLLIUM 58.6% POWDER PACKET PO SCH (08:48)
[2021-01-19] MEDS: IPRATROPIUM BROMIDE NASAL SPRAY 0.06% 15ML SCH ×2 (08:48→21:18)
[2021-01-19] MEDS: DOCUSATE SODIUM 100 MG CAP PO SCH ×2 (08:48→21:15)
[2021-01-19] MEDS: ASPIRIN 81 MG ECTAB PO SCH (08:48)
[2021-01-19] MEDS: OMEGA-3 (PURIFIED FISH OIL) 1 GM CAP PO SCH (08:48)
[2021-01-19] MEDS: dilTIAZem HCL 180 MG CAPCR PO SCH (08:48)
[2021-01-19] MEDS: FERROUS SULFATE 325 MG TAB PO SCH ×2 (08:48→17:14)
[2021-01-19] MEDS: QUEtiapine FUMARATE 100 MG TABLET PO SCH (08:48)
[2021-01-19] MEDS: UMECLIDINIUM BROMIDE 62.5MCG/BLISTER 7 PUFFS/INHALER INH SCH (08:48)
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
[2021-01-19] MEDS: QUEtiapine FUMARATE 200 MG TAB PO SCH (21:18)
[2021-01-19] MEDS: traZODone HCL 100 MG TAB PO SCH (21:18)
[2021-01-19] MEDS: SIMVASTATIN 40 MG TAB PO SCH (21:18)
[2021-01-20] MEDS: GABAPENTIN 400 MG CAP PO SCH ×4 (09:33→20:14)
[2021-01-20] MEDS: ASPIRIN 81 MG ECTAB PO SCH ×2 (09:33→10:08)
[2021-01-20] MEDS: DOCUSATE SODIUM 100 MG CAP PO SCH ×3 (09:33→20:13)
[2021-01-20] MEDS: OMEGA-3 (PURIFIED FISH OIL) 1 GM CAP PO SCH ×2 (09:33→10:08)
[2021-01-20] MEDS: LEVOTHYROXINE SODIUM 88 MCG TABLET PO SCH ×2 (09:33→10:08)
[2021-01-20] MEDS: dilTIAZem HCL 180 MG CAPCR PO SCH ×2 (09:33→10:08)
[2021-01-20] MEDS: FERROUS SULFATE 325 MG TAB PO SCH ×3 (09:33→17:17)
[2021-01-20] MEDS: QUEtiapine FUMARATE 100 MG TABLET PO SCH ×2 (09:34→10:09)
[2021-01-20] MEDS: IPRATROPIUM BROMIDE NASAL SPRAY 0.06% 15ML SCH ×3 (09:34→20:15)
[2021-01-20] MEDS: UMECLIDINIUM BROMIDE 62.5MCG/BLISTER 7 PUFFS/INHALER INH SCH ×2 (09:34→10:09)
[2021-01-20] MEDS: PSYLLIUM 58.6% POWDER PACKET PO SCH ×2 (09:34→10:09)
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
[2021-01-20] MEDS: clonazePAM 0.25 MG TAB PO PRN ×2 (17:15→21:51)
[2021-01-20] MEDS: SIMVASTATIN 40 MG TAB PO SCH (20:13)
[2021-01-20] MEDS: traZODone HCL 100 MG TAB PO SCH (20:14)
[2021-01-20] MEDS: QUEtiapine FUMARATE 200 MG TAB PO SCH (20:15)
[2021-01-20] MEDS ORDERED: ONDANSETRON 4 MG OD TAB PO PRN (20:18)
[2021-01-20] MEDS ORDERED: LORazepam 1 MG TAB PO STA (22:09)
[2021-01-21] MEDS: IPRATROPIUM BROMIDE NASAL SPRAY 0.06% 15ML SCH ×2 (09:25→20:34)
[2021-01-21] MEDS: UMECLIDINIUM BROMIDE 62.5MCG/BLISTER 7 PUFFS/INHALER INH SCH (09:25)
[2021-01-21] MEDS: LEVOTHYROXINE SODIUM 88 MCG TABLET PO SCH (09:26)
[2021-01-21] MEDS: PSYLLIUM 58.6% POWDER PACKET PO SCH (09:26)
[2021-01-21] MEDS: QUEtiapine FUMARATE 100 MG TABLET PO SCH (09:26)
[2021-01-21] MEDS: FERROUS SULFATE 325 MG TAB PO SCH ×2 (09:27→17:40)
[2021-01-21] MEDS: DOCUSATE SODIUM 100 MG CAP PO SCH ×2 (09:27→20:35)
[2021-01-21] MEDS: ASPIRIN 81 MG ECTAB PO SCH (09:27)
[2021-01-21] MEDS: dilTIAZem HCL 180 MG CAPCR PO SCH (09:27)
[2021-01-21] MEDS: GABAPENTIN 400 MG CAP PO SCH ×3 (09:28→20:35)
[2021-01-21] MEDS: OMEGA-3 (PURIFIED FISH OIL) 1 GM CAP PO SCH (09:28)
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
[2021-01-21] MEDS: QUEtiapine FUMARATE 200 MG TAB PO SCH (20:35)
[2021-01-21] MEDS: traZODone HCL 100 MG TAB PO SCH (20:36)
[2021-01-21] MEDS: SIMVASTATIN 40 MG TAB PO SCH (20:36)
[2021-01-22] MEDS: LEVOTHYROXINE SODIUM 88 MCG TABLET PO SCH (08:14)
[2021-01-22] MEDS: ASPIRIN 81 MG ECTAB PO SCH (08:15)
[2021-01-22] MEDS: PSYLLIUM 58.6% POWDER PACKET PO SCH (08:16)
[2021-01-22] MEDS: DOCUSATE SODIUM 100 MG CAP PO SCH (08:16)
[2021-01-22] MEDS: IPRATROPIUM BROMIDE NASAL SPRAY 0.06% 15ML SCH (08:16)
[2021-01-22] MEDS: GABAPENTIN 400 MG CAP PO SCH (08:16)
[2021-01-22] MEDS: QUEtiapine FUMARATE 100 MG TABLET PO SCH (08:16)
[2021-01-22] MEDS: dilTIAZem HCL 180 MG CAPCR PO SCH (08:16)
[2021-01-22] MEDS: FERROUS SULFATE 325 MG TAB PO SCH (08:16)
[2021-01-22] MEDS: OMEGA-3 (PURIFIED FISH OIL) 1 GM CAP PO SCH (08:16)
[2021-01-22] MEDS: UMECLIDINIUM BROMIDE 62.5MCG/BLISTER 7 PUFFS/INHALER INH SCH (08:17)
[2021-01-22] MEDS ORDERED: LORazepam 1 MG TAB PO STA (08:30)
--- NOTE | 2021-01-22 10:22 | Discharge Summary ---
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 providers for direction. If unable to reach your providers, please call the [facility] CRISIS LINE AT , go to the [facility] walk-in center at [address], [address], [place], or go to the closest Emergency Room. 5. Avoid alcohol and un-prescribed drugs. 6. You have been provided with the Mental Health Advance Directives Pamphlet for your review. AFTERCARE APPOINTMENTS: * Please call your insurance company prior to your scheduled appointment to confirm your aftercare providers are covered. Take your insurance information to your appointments. WHO TO CALL AND WHEN: Medical Emergencies: For questions or emergencies related to your hospital stay, please contact the Inpatient Behavioral Health Unit at [phone]. A naphthalene still operator is on-call 21/12 for the Behavioral Health Unit for emergencies At any time you feel your situation is an emergency, you may also call 911 immediately. Pending Studies at Discharge: No Stand-Alone Forms: [facility] Medications and DC Order Prescriptions: New ferrous sulfate 325 mg (65 mg iron) Tablet,Delayed Release (Dr/Ec) 325 mg PO BIDM Qty: 0 RF: 0 docusate sodium 100 mg Capsule 100 mg PO BID Qty: 0 RF: 0 quetiapine 100 mg Tablet 100 mg PO DAILY Qty: 0 RF: 0 quetiapine [Seroquel] 200 mg Tablet 400 mg PO HS Qty: 0 RF: 0 Continued diltiazem HCl 180 mg Capsule,Extended Release 24hr 180 mg PO QAM Qty: 30 RF: 2 gabapentin 400 mg capsule 400 mg PO TID Qty: 90 RF: 1 aspirin 81 mg tablet,delayed release (DR/EC) 81 mg PO DAILY Qty: 90 RF: 1 albuterol sulfate 90 mcg/actuation HFA aerosol inhaler 2 puff inhalation QID PRN (Reason: shortness of breath or wheezing or cough) Qty: 18 RF: 1 ipratropium bromide 42 mcg (0.06 %) spray,non-aerosol 2 spray intranasal BID Qty: 15 RF: 1 omega-3 fatty acids-fish oil 684-1,200 mg Capsule,Delayed Release(Dr/Ec) 1 cap PO DAILY Qty: 30 RF: 11 tiotropium bromide 2.5 mcg/actuation mist 2 puff inhalation DAILY Qty: 4 RF: 1 levothyroxine [Synthroid] 88 mcg Tablet 88 mcg PO DAILYBB Qty: 30 RF: 2 simvastatin 40 mg tablet 40 mg PO HS RF: 0 trazodone 100 mg tablet 100 mg PO HS RF: 0 Discontinued sulfamethoxazole-trimethoprim [Bactrim DS] 800-160 mg Tablet 1 tab PO Q12 Qty: 60 RF: 1 Eliquis 5 mg Tablet 5 mg PO BID Qty: 60 RF: 2 clonazepam 1 mg tablet 0.5 mg PO BID PRN (Reason: anxiety) Qty: 30 RF: 0 quetiapine [Seroquel] 200 mg tablet See Rx Instructions .ROUTE .COMPLEX RF: 0 Discharge Orders: Discharge Order (Routine); Ordered 01/22/21 Ordered By: Camacho Evans Admission Data Admit Date/Time: 10/22/20 01:04 Attending Provider: Camacho Evans Admit Provider: Stephanie Pacheco Primary Care Provider: Peter Lancaster III Other Providers: Matty Suggs ; Arlette Casey ; Nakita Macias ; Yvon Malave ; Magnolia Pelletier ; hSady Chin I. ; Lyle Ojeda II ; Bella Madison ; Inderjit Potter Other Interventions: Discharge Summary Assessment (RN) Last Done: 01/22/21 09:40 PSY Interdisciplinary Discharge Planning Last Done: 01/22/21 09:49 Coding Level of Care Code 42192 D/C day mgmt > 30 min Diagnoses Schizophrenia F20.9 Schizophrenia type: unspecified Time Spent (min) 40
== END 2021-01-22 09:54 | DRG 885 ==
LOC: SUATTDRO 01:04 → 3S 01:04

== ENCOUNTER 2024-12-25 11:06 | Inpatient (IN) ==
--- NOTE | 2024-12-25 11:16 | Emergency Department Note ---
Impression & Plan Encephalopathy acute, UTI (urinary tract infection), Acute dehydration ED Provider Note NAME: DEANDRE THOMPSON AGE: 64 SEX: F : 1960 ARRIVES VIA: Ambulance INFORMANT: Patient, ED PROVIDER(S): Moo Hull MD CHIEF COMPLAINT: Altered mental status MEDICAL DECISION MAKING: Patient presents due to concern for altered mental status. Patient does not have purposeful movements but does respond to pain. Primary and secondary surveys completed patient does appear to be protecting her airway although is nonverbal. Does not follow commands does appear to move all [address] head chest x-ray obtained along with urinalysis and UDS to salicylate Tylenol and alcohol were added. Patient with a normal white count hemoglobin and platelet count. IV fluids were ordered at the time of presentation as they had reported that the patient had been hypotensive in the field. Patient's kidney function is unremarkable. Electrolytes grossly unremarkable. Salicylate Tylenol and alcohol are negative. Urinalysis positive for infection ordered IV Rocephin UDS does show positive for MDMA. I did speak with the on-call hospitalist service after the patient's CT head and chest x-ray were negative. I did speak with Dr. Moreira and the patient was admitted to medicine service. Discussion w/ other healthcare providers: Dr. Moreira inpatient medicine service Prior /Outside records reviewed: None Differential diagnosis: Infection, dehydration, metabolic abnormality, hypo/hyperglycemia, electrolyte imbalance, anemia, UTI, pneumonia, thyroid dysfunction among others were considered. Diagnostics, as interpreted by me: ECG: Normal sinus rhythm, rate of 86, normal intervals, normal axis no obvious STEMI. Cardiac monitoring: An order was placed for continuous cardiac monitoring. The monitor shows a rate of 89 with sinus rhythm. Patient was placed on pulse oximetry Medical decision rules: None Imaging studies: I informally interpreted the patient's chest x-ray does not show obvious pneumonia with formal report to follow. HPI: Patient presents due to concern for altered mental status. Initially EMS had reported that the patient had a rightward fixed gaze and was only responsive to sternal rub. History is limited given the alteration in consciousness. Patient does not participate in the history. EMS did report the patient had several runs of nonsustained V. tach may be 5 or 6 beats as well as 3 beats. Patient reportedly not currently taking medications but was at a boyfriend's home over the weekend. They report that she has been in the state since Wednesday but nobody was called to the house. She was not noted to be soiled. No concern for drug paraphernalia or trauma. PAST MEDICAL HISTORY: See Below PAST SURGICAL HISTORY: See Below SOCIAL HISTORY: See Below HOME MEDICATIONS: See Below ALLERGIES: See Below VITALS: See Below PHYSICAL EXAMINATION: GENERAL: NAD, non-toxic. EYE EXAM: Normal conjunctiva. PERRL, no anisocoria. OROPHARYNX: Dry mucus membranes, edentulous. NECK: Trachea midline, no stridor. LUNGS: Clear to auscultation. Normal chest wall mechanics. HEART: NSR, no MRG. ABDOMEN: Abdomen soft, non-tender, no masses, no rebound or guarding. BACK: No obvious step-offs. SKIN: No rashes and no bruising. UPPER EXTREMITIES: Upper extremities are grossly normal. LOWER EXTREMITIES: Grossly normal, no edema. NEURO EXAM: Responds to painful stimuli. Opens eyes to pain does not follow commands. Moves all 4 extremities to pain. 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 Atrial flutter with rapid ventricular response Unspecified psychosis Nicotine addiction Fibromyalgia (Acute) Encounter for screening for lung cancer Chronic pain of right wrist Anemia (Acute) Anxiety (Acute) Atherosclerotic heart disease of [place] coronary artery with other forms of angina pectoris (Acute) COPD, moderate (Acute) Chronic pancreatitis (Acute) Chronic rhinitis (Acute) Chronic venous insufficiency (Acute) Depression (Acute) Gastroesophageal reflux disease without esophagitis (Acute) Heart valve replaced by other means (Acute 08/31/11) Hyperactivity of bladder (Acute) Other and unspecified hyperlipidemia (Acute 08/31/11) Migraine headache (Acute) Mitral regurgitation (Acute) Osteomyelitis of sternum (Acute) Osteopenia (Acute) PAD (peripheral artery disease) (Acute) Schizophrenia (Acute) Staphylococcal infection (Acute) Medical History Pneumonia Intentional drug overdose Bilateral pneumonia Constipation Lab test negative for COVID-19 virus Paranoia Long-term use of high-risk medication PAD (peripheral artery disease) Current smoker History of myocardial infarction in adulthood COPD (chronic obstructive pulmonary disease) Chronic osteomyelitis Surgical History History of cholecystectomy H/O arthroscopic knee surgery History of tonsillectomy History of mitral valve repair Family History Mother Breast cancer Uncle Diabetes Brother Diabetes Grandfather (Paternal) Diabetes Father Diabetes Grandmother (Maternal) Diabetes Colorectal cancer Social History Smoking Status: Unknown if ever smoked Tobacco Type: Cigarettes packs per day: 1; Cigarettes Per Day: 20; Second Hand Exposure: Yes; Do You Dip or Chew Tobacco: No; Hx Alcohol Use: No Hx Substance Use: Yes Last Used Substance: Days (ago) Preferred Language: Slovenian Communication Ability: sleeping C 40A Crew Chief Required: No Beliefs That Will Affect Care: None marital status: Single Current Living Situation: Alone and Homeless Current Living Situation Comment: community housing/homeless current occupational status: disabled Feels Safe at Home: Declines to Answer Assistive Devices: None Allergies Allergies Allergy/AdvReac Type Severity Reaction Status Date / Time Penicillins Allergy Unknown RASH Verified 12/29/22 11:40 perphenazine Allergy Unknown SWELLING Verified 12/29/22 11:40 ALL OVER BODY prednisone AdvReac Severe not able Verified 12/29/22 11:40 to sleep azithromycin AdvReac Hives Verified 12/29/22 11:40 Home Meds Home Medications Medication Instructions Recorded Confirmed acetaminophen 325 mg tablet 650 mg PO Q4H PRN PAIN OR FEVER 12/29/22 12/25/24 ascorbic acid (vitamin C) 1,000 mg 1 g PO DAILY 12/29/22 12/25/24 tablet (Vitamin C) cholecalciferol (vitamin D3) 125 125 mcg PO DAILY 12/29/22 12/25/24 mcg (5,000 unit) tablet (Vitamin D3) gabapentin 600 mg tablet 600 mg PO TID 12/29/22 12/25/24 psyllium seed (sugar) oral powder 2 tsp PO QAM 12/29/22 12/25/24 (Metamucil (sugar) oral powder) sodium chloride 0.65 % nasal spray 2 spray intranasal DAILY PRN 12/29/22 12/25/24 aerosol (Saline Nasal Mist) CONGESTION OR NASAL DRYNESS aluminum-mag hydroxide-simethicone 10 ml PO QID PRN Stomach Issues 12/25/24 12/25/24 200 mg-200 mg-20 mg/5 mL oral susp atorvastatin 20 mg tablet 20 mg PO DAILY 12/25/24 12/25/24 doxepin 100 mg capsule 100 mg PO DAILY 12/25/24 12/25/24 gabapentin 100 mg capsule 100 mg PO BID 12/25/24 12/25/24 guaifenesin 100 mg/5 mL oral liquid 200 mg PO Q4H PRN Cough/Congestion 12/25/24 12/25/24 pantoprazole 40 mg tablet,delayed 40 mg PO DAILY 12/25/24 12/25/24 release potassium chloride 10 mEq 10 meq PO DAILY 12/25/24 12/25/24 tablet,extended release quetiapine 50 mg tablet,extended 100 mg PO QPM 12/25/24 12/25/24 release 24 hr trazodone 50 mg tablet 100 mg PO HS 12/25/24 12/25/24 Previous Rx's Medication Instructions Recorded aspirin 81 mg tablet,delayed 81 mg PO DAILY #90 tabs 10/18/20 release levothyroxine 88 mcg tablet 88 mcg PO DAILYBB #30 tabs 10/18/20 (Synthroid) omega-3 fatty acids-fish oil 684 1 cap PO DAILY #30 caps 10/18/20 mg-1,200 mg capsule,delayed release docusate sodium 100 mg capsule 100 mg PO BID #0 caps 01/22/21 Results & Data (ED) Vital Signs Vital Signs - 24 hr 12/25/24 11:09 12/25/24 11:09 12/25/24 11:38 Temperature 36.5 C Temperature Source Rectal Pulse Rate 88 Pulse Rate [Apical] 88 Pulse Rate from SpO2 Sensor Pulse Rhythm Regular Pulse Rhythm [Apical] Regular Respiratory Rate 17 17 Respiratory Effort / Characteristics Non-Labored Spontaneous Non-Labored Spontaneous Respiratory Depth Normal Normal Respiratory Pattern Regular Regular Blood Pressure Blood Pressure [Right Arm] 156/95 H Blood Pressure Mean Blood Pressure Mean [Right Arm] 115 Blood Pressure Position [Right Arm] Lying Pulse Oximetry 97 97 Oxygen Delivery Method Room Air Room Air Room Air Sepsis Recent Fever Within 48 Hours No Sepsis New/Unexplained Change in Mental Status No Sepsis Action Taken by Nursing No Action Required Pulse Oximetry Post Tiitration 99 12/25/24 11:38 12/25/24 12:21 12/25/24 12:21 Temperature Temperature Source Pulse Rate 83 93 H Pulse Rate [Apical] 82 Pulse Rate from SpO2 Sensor Pulse Rhythm Regular Pulse Rhythm [Apical] Regular Respiratory Rate 15 12 Respiratory Effort / Characteristics Non-Labored Spontaneous Respiratory Depth Normal Respiratory Pattern Regular Blood Pressure Blood Pressure [Right Arm] 155/76 H Blood Pressure Mean Blood Pressure Mean [Right Arm] 102 Blood Pressure Position [Right Arm] Lying Pulse Oximetry 99 100 Oxygen Delivery Method Room Air Room Air Sepsis Recent Fever Within 48 Hours Sepsis New/Unexplained Change in Mental Status Sepsis Action Taken by Nursing Pulse Oximetry Post Tiitration 12/25/24 13:00 12/25/24 13:09 12/25/24 13:21 Temperature Temperature Source Pulse Rate 73 78 Pulse Rate [Apical] Pulse Rate from SpO2 Sensor 69 75 Pulse Rhythm Pulse Rhythm [Apical] Respiratory Rate 12 14 Respiratory Effort / Characteristics Respiratory Depth Respiratory Pattern Blood Pressure 166/72 H Blood Pressure [Right Arm] Blood Pressure Mean 127 Blood Pressure Mean [Right Arm] Blood Pressure Position [Right Arm] Pulse Oximetry 99 100 Oxygen Delivery Method Sepsis Recent Fever Within 48 Hours Sepsis New/Unexplained Change in Mental Status Sepsis Action Taken by Nursing Pulse Oximetry Post Tiitration 12/25/24 13:30 12/25/24 13:30 Temperature Temperature Source Pulse Rate 70 Pulse Rate [Apical] Pulse Rate from SpO2 Sensor 63 Pulse Rhythm Pulse Rhythm [Apical] Respiratory Rate 14 Respiratory Effort / Characteristics Respiratory Depth Respiratory Pattern Blood Pressure 143/67 H Blood Pressure [Right Arm] Blood Pressure Mean 87 Blood Pressure Mean [Right Arm] Blood Pressure Position [Right Arm] Pulse Oximetry 99 Oxygen Delivery Method Sepsis Recent Fever Within 48 Hours Sepsis New/Unexplained Change in Mental Status Sepsis Action Taken by Nursing Pulse Oximetry Post Tiitration Home Medications Current Medication List: was personally reviewed by me Laboratory Data Attestation: I reviewed the patient's lab results. 12/25/24 11:24 12/25/24 11:24 Lab Results 07/28/25 07/28/25 07/28/25 Range/Units 11:12 11:24 11:31 WBC 5.94 (4.8-10.8) K/ul RBC 4.16 L (4.20-5.40) M/uL Hgb 12.6 (12.0-16.0) g/dl POC Hgb 12.9 (12.0-16.0) g/dl Hct 37.2 (37.0-47.0) % POC Hct 38 (37-47) % MCV 89.4 (80.0-100.0) fL MCH 30.3 (25.0-34.0) pg MCHC 33.9 (32.0-36.0) g/dL RDW Std Deviation 46.8 H (36.4-46.3) fL RDW Coeff of Samreen 14.6 H (11.5-14.5) % Plt Count 234 (130-400) K/uL MPV 11.0 (9.4-12.4) fL Immature Gran % (Auto) 0.2 % Neut % (Auto) 63.8 % Lymph % (Auto) 26.3 % [place] % (Auto) 5.4 % Eos % (Auto) 3.0 % Baso % (Auto) 1.3 % Neut # (Auto) 3.79 (1.40-6.50) K/uL Lymph # (Auto) 1.56 (1.20-3.40) K/uL [place] # (Auto) 0.32 (0.11-0.59) K/uL Eos # (Auto) 0.18 (0.00-0.50) K/uL Baso # (Auto) 0.08 (0.00-0.20) K/uL Immature Gran # (Auto) 0.01 (0.01-0.20) K/uL POC Sodium 142 (135-144) mmol/L Sodium 140 (136-145) mmol/L POC Potassium 4.0 (3.3-5.0) mmol/L Potassium 4.0 (3.5-5.1) mmol/L POC Chloride 106 (101-112) mmol/L Chloride 109 H (98-107) mmol/L Carbon Dioxide 26 (21-32) mmol/L POC Total CO2 25 (24-31) mmol/L Anion Gap 5 (3-11) POC Anion Gap 15.0 L (16-25) mmol/L POC BUN 12 (7-18) mg/dl BUN 12 (6-23) mg/dl Creatinine 0.74 (0.6-1.2) mg/dl POC Creatinine 0.9 (0.6-1.3) mg/dl Est Cr Clr Drug Dosing 76.6 ml/min eGFR 90.85 BUN/Creatinine Ratio 16.2 (10-20) Glucose 95 (70-99(Fasting)) mg/dl POC Glucose 82 (70-99) mg/dl POC Glucose (other) 94 (70-99) mg/dl Calcium 8.5 L (8.6-10.3) mg/dl POC Ioniz Calcium [place] 0.98 L (1.12-1.32) mmol/l Magnesium 1.7 (1.7-2.4) mg/dl Total Bilirubin 0.3 (0.2-1.0) mg/dl AST 18 (13-39) U/L ALT 11 (7-52) U/L Alkaline Phosphatase 115 H (34-104) U/L Troponin I High Sens 4.3 (0-14) pg/ml Total Protein 6.6 (6.0-8.3) gm/dl Albumin 3.6 (3.4-5.0) gm/dl Globulin 3.0 (2.5-4.0) gm/dl Albumin/Globulin Ratio 1.2 (0.9-2) TSH 1.427 (0.300-4.500) uIu/ml Urine Color Urine Appearance (Clear) Urine pH (4.5-7.5) Ur Specific [place] (1.000-1.030) Urine Protein (Negative) Urine Glucose (UA) (Negative) Urine Ketones (Negative) Urine Blood (Negative) Urine Nitrite (Negative) Urine Bilirubin (Negative) Urine Urobilinogen (Negative) Ur Leukocyte Esterase (Negative) Urine WBC (Auto) (0-5) /hpf Urine RBC (Auto) (0-2) /hpf U Hyaline Cast (Auto) (0-2) /lpf U Epithel Cells (Auto) (0-2) /hpf Urine Bacteria (Auto) (None Seen) Urine Mucus (None Prsent) Urine Comment Salicylates < 3.0 L (3.0-30) mg/dl Urine Opiates Screen (Neg) Ur Methadone, Qual (Neg) Urine Fentanyl Screen (Neg) Acetaminophen < 3 L (10-30) ug/ml Urine Barbiturates (Neg) Ur Phencyclidine (PCP) (Neg) U Amphetamin/Meth Scrn (Neg) MDMA (Ecstasy) Screen (Neg) U Benzodiazepines Scrn (Neg) Ur Cocaine Metabolite (Neg) U Marijuana (THC) Screen (Neg) Ethyl Alcohol mg/dL < 10.0 (<10.0) mg/dl 12/25/24 Range/Units 11:52 WBC (4.8-10.8) K/ul RBC (4.20-5.40) M/uL Hgb (12.0-16.0) g/dl POC Hgb (12.0-16.0) g/dl Hct (37.0-47.0) % POC Hct (37-47) % MCV (80.0-100.0) fL MCH (25.0-34.0) pg MCHC (32.0-36.0) g/dL RDW Std Deviation (36.4-46.3) fL RDW Coeff of [place] (11.5-14.5) % Plt Count (130-400) K/uL MPV (9.4-12.4) fL Immature Gran % (Auto) % Neut % (Auto) % Lymph % (Auto) % [place] % (Auto) % Eos % (Auto) % Baso % (Auto) % Neut # (Auto) (1.40-6.50) K/uL Lymph # (Auto) (1.20-3.40) K/uL [place] # (Auto) (0.11-0.59) K/uL Eos # (Auto) (0.00-0.50) K/uL Baso # (Auto) (0.00-0.20) K/uL Immature Gran # (Auto) (0.01-0.20) K/uL POC Sodium (135-144) mmol/L Sodium (136-145) mmol/L POC Potassium (3.3-5.0) mmol/L Potassium (3.5-5.1) mmol/L POC Chloride (101-112) mmol/L Chloride (98-107) mmol/L Carbon Dioxide (21-32) mmol/L POC Total CO2 (24-31) mmol/L Anion Gap (3-11) POC Anion Gap (16-25) mmol/L POC BUN (7-18) mg/dl BUN (6-23) mg/dl Creatinine (0.6-1.2) mg/dl POC Creatinine (0.6-1.3) mg/dl Est Cr Clr Drug Dosing ml/min eGFR BUN/Creatinine Ratio (10-20) Glucose (70-99(Fasting)) mg/dl POC Glucose (70-99) mg/dl POC Glucose (other) (70-99) mg/dl Calcium (8.6-10.3) mg/dl POC Ioniz Calcium [place] (1.12-1.32) mmol/l Magnesium (1.7-2.4) mg/dl Total Bilirubin (0.2-1.0) mg/dl AST (13-39) U/L ALT (7-52) U/L Alkaline Phosphatase (34-104) U/L Troponin I High Sens (0-14) pg/ml Total Protein (6.0-8.3) gm/dl Albumin (3.4-5.0) gm/dl Globulin (2.5-4.0) gm/dl Albumin/Globulin Ratio (0.9-2) TSH (0.300-4.500) uIu/ml Urine Color Yellow Urine Appearance Clear (Clear) Urine pH 5.5 (4.5-7.5) Ur Specific [place] 1.017 (1.000-1.030) Urine Protein Negative (Negative) Urine Glucose (UA) Negative (Negative) Urine Ketones Trace H (Negative) Urine Blood Negative (Negative) Urine Nitrite Positive A (Negative) Urine Bilirubin Negative (Negative) Urine Urobilinogen Negative (Negative) Ur Leukocyte Esterase 2+ H (Negative) Urine WBC (Auto) 11-20 H (0-5) /hpf Urine RBC (Auto) 0-2 (0-2) /hpf U Hyaline Cast (Auto) 0-2 (0-2) /lpf U Epithel Cells (Auto) 3-5 H (0-2) /hpf Urine Bacteria (Auto) 4+ H (None Seen) Urine Mucus Present A (None Prsent) Urine Comment Salicylates (3.0-30) mg/dl Urine Opiates Screen Neg (Neg) Ur Methadone, Qual Neg (Neg) Urine Fentanyl Screen Neg (Neg) Acetaminophen (10-30) ug/ml Urine Barbiturates Neg (Neg) Ur Phencyclidine (PCP) Neg (Neg) U Amphetamin/Meth Scrn Neg (Neg) MDMA (Ecstasy) Screen Pos H (Neg) U Benzodiazepines Scrn Neg (Neg) Ur Cocaine Metabolite Neg (Neg) U Marijuana (THC) Screen Neg (Neg) Ethyl Alcohol mg/dL (<10.0) mg/dl Administered Medications Ascorbic Acid (Ascorbic Acid 500 Mg Tab) 500 mg PO DAILY [facility] Stop: 01/25/25 08:59 Last Admin: 12/26/24 09:40 Dose: Not Given Documented By: ESNaseem Aspirin (Aspirin 81 Mg Ectab) 81 mg PO DAILY [facility] Stop: 01/24/25 13:44 Last Admin: 12/26/24 09:40 Dose: Not Given Documented By: Admin: 12/25/24 17:27 Dose: Not Given Documented By: JONH Atorvastatin Calcium (Atorvastatin 20 Mg Tab) 20 mg PO DAILY [facility] Stop: 01/24/25 13:44 Last Admin: 12/26/24 09:40 Dose: Not Given Documented By: ESNaseem Admin: 12/25/24 17:27 Dose: Not Given Documented By: JONH Docusate Sodium (Docusate Sodium 100 Mg Cap) 100 mg PO BID [facility] Stop: 01/24/25 20:59 Last Admin: 12/26/24 09:40 Dose: Not Given Documented By: Admin: 12/25/24 21:30 Dose: Not Given Documented By: [id number] Doxepin HCl (Doxepin Hcl 50 Mg Capsule) 100 mg PO DAILY [facility] Stop: 01/25/25 08:59 Last Admin: 12/26/24 09:40 Dose: Not Given Documented By: LAINEY Fish Oil ([place]-3 (Purified Fish Oil) 1 Gm Cap) 1 cap PO DAILY [facility] Stop: 01/25/25 08:59 Last Admin: 12/26/24 09:40 Dose: Not Given Documented By: LAINEY Heparin Sodium (Porcine) (Heparin Sod 5,000 Unit/0.5 Ml Vial) 5,000 units SQ Q8 [facility] Stop: 01/24/25 13:59 Last Admin: 12/26/24 05:40 Dose: 5,000 units Documented By: [id number] Admin: 12/25/24 21:38 Dose: 5,000 units Documented By: [id number] Admin: 12/25/24 17:22 Dose: 5,000 units Documented By: JONH Dextrose/Sodium Chloride (D5w And 1/2nss) 1,000 mls @ 80 mls/hr IV .[id number] [facility] Stop: 12/29/24 09:14 Last Admin: 12/26/24 10:30 Dose: 80 mls/hr Documented By: LAINEY Levothyroxine Sodium (Levothyroxine Sodium 88 Mcg Tablet) 88 mcg PO DAILYBB [facility] Stop: 01/25/25 06:29 Last Admin: 12/26/24 05:38 Dose: Not Given Documented By: [id number] Pantoprazole Sodium (Pantoprazole 40 Mg Tab) 40 mg PO DAILY [facility] Stop: 01/25/25 08:59 Last Admin: 12/26/24 09:40 Dose: Not Given Documented By: LAINEY Potassium Chloride (Potassium Chloride 10 Meq Tabcr) 10 meq PO DAILY [facility] Stop: 01/25/25 08:59 Last Admin: 12/26/24 09:40 Dose: Not Given Documented By: LAINEY Psyllium Hydrophilic Mucilloid (Psyllium Husk 4gm Packet) 4 gm PO QAM [facility] Stop: 01/25/25 08:59 Last Admin: 12/26/24 09:40 Dose: Not Given Documented By: LAINEY Quetiapine Fumarate (Quetiapine Fumarate 50 Mg Tabcr) 100 mg PO QPM [facility] Stop: 01/24/25 20:59 Last Admin: 12/25/24 21:30 Dose: Not Given Documented By: [id number] Trazodone HCl (Trazodone Hcl 100 Mg Tab) 100 mg PO HS [facility] Stop: 01/24/25 20:59 Last Admin: 12/25/24 21:30 Dose: Not Given Documented By: [id number] Vitamin D (Cholecalciferol 125 Mcg (5,000 Units) Tab) 125 mcg PO DAILY [facility] Stop: 01/25/25 08:59 Last Admin: 12/26/24 09:40 Dose: Not Given Documented By: LAINEY Discontinued Medications Dextrose (Dextrose 50% 50 Ml Syringe) 50 ml IV NOW STA Stop: 12/25/24 17:16 Last Admin: 12/25/24 17:22 Dose: 50 ml Documented By: JONH Gabapentin (Gabapentin 600 Mg Tab) 600 mg PO TID [facility] Stop: 01/24/25 13:59 Last Admin: 12/25/24 17:09 Dose: Not Given Documented By: JONH Sodium Chloride (Nss) 1,000 mls @ 999 mls/hr IV .[id number] [facility] Stop: 12/25/24 12:15 Last Infusion: 12/25/24 12:30 Dose: Infused Documented By: Admin: 12/25/24 11:25 Dose: 999 mls/hr Documented By: RISHABH Ceftriaxone Sodium (Rocephin) 2,000 mg in 50 mls @ 100 mls/hr IV NOW STA Stop: 12/25/24 12:41 Last Infusion: 12/25/24 13:16 Dose: Infused Documented By: Admin: 12/25/24 12:18 Dose: 100 mls/hr Documented By: RISHABH Sodium Chloride (Nss) 1,000 mls @ 125 mls/hr IV .Q8H [facility] Stop: 12/28/24 13:44 Last Infusion: 12/26/24 10:31 Dose: Infused Documented By: Infusion: 12/26/24 10:29 Dose: 0 mls/hr Documented By: Admin: 12/26/24 03:55 Dose: 125 mls/hr Documented By: [id number] Infusion: 12/26/24 03:37 Dose: Infused Documented By: [id number] Admin: 12/25/24 19:37 Dose: 125 mls/hr Documented By: [id number] Infusion: 12/25/24 19:37 Dose: Infused Documented By: [id number] Admin: 12/25/24 17:27 Dose: 125 mls/hr Documented By: JONH Imaging Data Radiologist's Impression: Chest X-Ray 12/25/24 11:12 XR chest 1V portable CLINICAL HISTORY: Weakness. COMPARISON STUDY: Chest CT October 17, 2020. Chest radiograph December 29, 2022. FINDINGS: Median sternotomy wires and a prosthetic mitral valve are incidentally noted. Lung volumes are normal. Lungs are clear. There is no pneumothorax or pleural effusion. The cardiomediastinal silhouette is stable. There is no evidence for pulmonary edema. IMPRESSION: No acute cardiopulmonary findings. No change in appearance of the chest. ACT 112: Negative or not required by law. Electronically signed by: Ky Purvis M.D. 12/25/2024 11:[address] 12/25/24 11:12 CT SCAN OF THE BRAIN WITHOUT IV CONTRAST CLINICAL HISTORY: Altered mental status. COMPARISON STUDY: MRI of the brain October 17, 2020. Head CT December 29, 2022. TECHNIQUE: Unenhanced axial CT scan of the brain was performed from the vertex to the skull base. A dose lowering technique was utilized adhering to the principles of ALARA. CT DOSE: 625.8 mGy.cm FINDINGS: Brain parenchyma: No acute intracranial hemorrhage, midline shift or mass effect is present. Ye-white matter differentiation is preserved. There are no extra- axial fluid collections. There are no findings to suggest acute dural sinus thrombosis or acute territorial infarct. Ventricles, sulci, cisterns: There is no hydrocephalus. The basal cisterns are patent. Calvarium: Unremarkable. Sinuses and mastoids: The visualized paranasal sinuses are clear. Partial opacification of the right mastoid air cells is unchanged. Orbits: The bony orbits are grossly intact. IMPRESSION: No acute intracranial findings. ACT 112: Negative or not required by law. Electronically signed by: Ky Purvis M.D. 12/25/2024 11:47 AM Discharge Plan Visit Data Chief Complaint: Unresponsive Stated Complaint: UNRESPONSIVE, HYPOTENSION, FIXED GAZE ED Provider: Moo Hull Discharge Problem: Encephalopathy acute, UTI (urinary tract infection), Acute dehydration Patient Disposition: Admitted As Inpatient Condition: Fair Discharge Instructions Interventions: ED Discharge Assessment Last Done: 12/25/24 16:41 Discharge Problem: UTI (urinary tract infection) Qualifiers: Urinary tract infection type: site unspecified
[2024-12-25] MEDS: SODIUM CHLORIDE 0.9% 1,000 ML IV SCH ×2 (11:25→17:27)
--- NOTE | 2024-12-25 11:45 | XRay Report ---
XR chest 1V portable CLINICAL HISTORY: Weakness. COMPARISON STUDY: Chest CT October 17, 2020. Chest radiograph December 29, 2022. FINDINGS: Median sternotomy wires and a prosthetic mitral valve are incidentally noted. Lung volumes are normal. Lungs are clear. There is no pneumothorax or pleural effusion. The cardiomediastinal silh ouette is stable. There is no evidence for pulmonary edema. IMPRESSION: No acute cardiopulmonary findings. No change in appearance of the chest. ACT 112: Negative or not required by law. Electronically signed by: Ky Purvis M.D. 12/25/2024 11:43 AM
--- NOTE | 2024-12-25 11:49 | CT Scan Report ---
CT SCAN OF THE BRAIN WITHOUT IV CONTRAST CLINICAL HISTORY: Altered mental status. COMPARISON STUDY: MRI of the brain October 17, 2020. Head CT December 29, 2022. TECHNIQUE: Unenhanced axial CT scan of the brain was performed from the vertex to the skull base. A dose lowering technique was utilized adhering to the principles of ALARA. CT DOSE: 625.8 mGy.cm FINDINGS: Brain parenchyma: No acute intracranial hemorrhage, midline shift or mass effect is present. Ye-whi te matter differentiation is preserved. There are no extra-axial fluid collections. There are no find ings to suggest acute dural sinus thrombosis or acute territorial infarct. Ventricles, sulci, cisterns: There is no hydrocephalus. The basal cisterns are patent. Calvarium: Unremarkable. Sinuses and mastoids: The visualized paranasal sinuses are clear. Partial opacification of the right mastoid air cells is unchanged. Orbits: The bony orbits are grossly intact. IMPRESSION: No acute intracranial findings. ACT 112: Negative or not required by law. Electronically signed by: Ky Purvis M.D. 12/25/2024 11:47 AM
[2024-12-25 11:52] LABS: Hematocrit (blood only) 37.2 % (37.0-47.0); Hemoglobin 12.6 g/dl (12.0-16.0); Immature Granulocytes # (auto) 0.01 K/uL (0.01-0.20); Immature Granulocytes % (auto) 0.2 %; Mean Corpuscular Hemoglobin 30.3 pg (25.0-34.0); Mean Corpuscular Volume 89.4 fL (80.0-100.0); Platelet Count 234 K/uL (130-400); RDW Standard Deviation 46.8 fL (36.4-46.3); Red Blood Count 4.16 M/uL (4.20-5.40); White Blood Count 5.94 K/ul (4.8-10.8)
[2024-12-25 12:07] LABS: Acetaminophen < 3 ug/ml (10-30); Salicylate < 3.0 mg/dl (3.0-30)
[2024-12-25 12:08] LABS: Appearance Urine Clear (Clear); Bacteria Urine Automated 4+ (None Seen); Cast Urine Automated 0-2 /lpf (0-2); Glucose Urine UA Negative (Negative); RBC Urine Automated 0-2 /hpf (0-2)
[2024-12-25] MEDS: cefTRIAXone SODIUM 2,000 MG/50 ML BAG IV STA (12:18)
[2024-12-25 12:22] LABS: Alanine Aminotransferase 11.0 U/L (7-52); Albumin Globulin Ratio 1.2 (0.9-2); Albumin Level 3.6 gm/dl (3.4-5.0); Alkaline Phosphatase 115.0 U/L (34-104); Anion Gap 5.0 (3-11); Bilirubin,Total 0.3 mg/dl (0.2-1.0); Blood Urea Nitrogen 12.0 mg/dl (6-23); Calcium 8.5 mg/dl (8.6-10.3); Carbon Dioxide 26.0 mmol/L (21-32); Chloride 109.0 mmol/L (98-107); Creatinine Clr Calc Pharmacy 76.6 ml/min; Globulin 3.0 gm/dl (2.5-4.0); Glucose 95.0 mg/dl (70-99(Fasting)); Magnesium 1.7 mg/dl (1.7-2.4); Potassium 4.0 mmol/L (3.5-5.1); Sodium 140.0 mmol/L (136-145); Total Protein 6.6 gm/dl (6.0-8.3)
[2024-12-25 12:31] LABS: Amphetamines+Metham, Urine Neg (Neg); MDMA (Ecstacy), Urine Pos (Neg); Marijuana, Urine Neg (Neg)
[2024-12-25 12:37] LABS: Thyroid Stimulating Hormone 1.427 uIu/ml (0.300-4.500)
[2024-12-25] MEDS ORDERED: ONDANSETRON INJ 2 MG/ML 2 ML VIAL IV PRN (13:42)
--- NOTE | 2024-12-25 14:50 | History & Physical Report ---
Date of Service December 25, 2024 Assessment & Plan (1) AMS (altered mental status): Plan: -h/o schizophrenia -MDMA+ unclear if estacy or related to doxepin -CT head negative -pt with fixed gaze for 3 days, responsive to sternal rub -psych consulted -NPO -IVF (2) UTI (urinary tract infection): Plan: -rocephin -f/u urine C&S (3) Schizophrenia: Plan: -noted -psych consulted (4) COPD, moderate: Plan: -duonebs prn (5) HTN (hypertension): Plan: BP stable (6) Hyperlipidemia: Plan: -atorvastatin (7) Anxiety: Plan: con't home meds (8) Depression: Plan: con't home meds Plan Heparin SQ for DVT px History of Present Illness Chief Complaint: fixed gaze, unresponsiveness Primary Care Provider: NO PCP Pt is a 64 y/o female with pmh of HTN, HLD, Anxiety, ADHD, COPD who was brought in by EMS with rightward fixed gaze and unresponsiveness. According to her boyfriend she has been like this for 3 days. No other information was given. Her cloths were not soiled and she was responding to sternal rub. Her CT head was negative in the ER. Her urine tox was + for MDMA. Pt is on doxepin, quetiapine and trazodone. It unknown if she took these meds or was taking ecstasy. Pt was noted on UA to be + for UTI. Allergies Allergy/AdvReac Type Severity Reaction Status Date / Time Penicillins Allergy Unknown RASH Verified 12/29/22 11:40 perphenazine Allergy Unknown SWELLING Verified 12/29/22 11:40 ALL OVER BODY prednisone AdvReac Severe not able Verified 12/29/22 11:40 to sleep azithromycin AdvReac Hives Verified 12/29/22 11:40 Home Medications Medication Instructions Recorded Confirmed Type aspirin 81 mg tablet,delayed 81 mg PO DAILY #90 tabs 10/18/20 12/25/24 Rx release levothyroxine 88 mcg tablet 88 mcg PO DAILYBB #30 tabs 10/18/20 12/25/24 Rx (Synthroid) omega-3 fatty acids-fish oil 684 1 cap PO DAILY #30 caps 10/18/20 12/25/24 Rx mg-1,200 mg capsule,delayed release docusate sodium 100 mg capsule 100 mg PO BID #0 caps 01/22/21 12/25/24 Rx acetaminophen 325 mg tablet 650 mg PO Q4H PRN PAIN OR FEVER 12/29/22 12/25/24 History ascorbic acid (vitamin C) 1,000 mg 1 g PO DAILY 12/29/22 12/25/24 History tablet (Vitamin C) cholecalciferol (vitamin D3) 125 125 mcg PO DAILY 12/29/22 12/25/24 History mcg (5,000 unit) tablet (Vitamin D3) gabapentin 600 mg tablet 600 mg PO TID 12/29/22 12/25/24 History psyllium seed (sugar) oral powder 2 tsp PO QAM 12/29/22 12/25/24 History (Metamucil (sugar) oral powder) sodium chloride 0.65 % nasal spray 2 spray intranasal DAILY PRN 12/29/22 12/25/24 History aerosol (Saline Nasal Mist) CONGESTION OR NASAL DRYNESS aluminum-mag hydroxide-simethicone 10 ml PO QID PRN Stomach Issues 12/25/24 12/25/24 History 200 mg-200 mg-20 mg/5 mL oral susp atorvastatin 20 mg tablet 20 mg PO DAILY 12/25/24 12/25/24 History doxepin 100 mg capsule 100 mg PO DAILY 12/25/24 12/25/24 History gabapentin 100 mg capsule 100 mg PO BID 12/25/24 12/25/24 History guaifenesin 100 mg/5 mL oral liquid 200 mg PO Q4H PRN Cough/Congestion 12/25/24 12/25/24 History pantoprazole 40 mg tablet,delayed 40 mg PO DAILY 12/25/24 12/25/24 History release potassium chloride 10 mEq 10 meq PO DAILY 12/25/24 12/25/24 History tablet,extended release quetiapine 50 mg tablet,extended 100 mg PO QPM 12/25/24 12/25/24 History release 24 hr trazodone 50 mg tablet 100 mg PO HS 12/25/24 12/25/24 History Past Med/Surg History Problem List (Updated 12/25/24 @ 14:49 by Eber Beltran MD) UTI (urinary tract infection) AMS (altered mental status) Sinus tachycardia Discharge planning issues Low grade fever Acute blood loss anemia Acute diastolic CHF (congestive heart failure) Hypothyroidism Atrial fibrillation with rapid ventricular response GERD (gastroesophageal reflux disease) HTN (hypertension) Hyperlipidemia Osteoarthritis DDD (degenerative disc disease), thoracolumbar 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 Atrial flutter with rapid ventricular response Unspecified psychosis Nicotine addiction Fibromyalgia (Acute) Encounter for screening for lung cancer Chronic pain of right wrist Anemia (Acute) Anxiety (Acute) Atherosclerotic heart disease of [place] coronary artery with other forms of angina pectoris (Acute) COPD, moderate (Acute) Chronic pancreatitis (Acute) Chronic rhinitis (Acute) Chronic venous insufficiency (Acute) Depression (Acute) Gastroesophageal reflux disease without esophagitis (Acute) Heart valve replaced by other means (Acute 08/31/11) Hyperactivity of bladder (Acute) Other and unspecified hyperlipidemia (Acute 08/31/11) Migraine headache (Acute) Mitral regurgitation (Acute) Osteomyelitis of sternum (Acute) Osteopenia (Acute) PAD (peripheral artery disease) (Acute) Schizophrenia (Acute) Staphylococcal infection (Acute) Medical History Bilateral pneumonia Chronic osteomyelitis Chronic pain of right wrist Constipation COPD (chronic obstructive pulmonary disease) Current smoker Fibromyalgia GERD (gastroesophageal reflux disease) History of myocardial infarction in adulthood HTN (hypertension) Hyperlipidemia Intentional drug overdose Lab test negative for COVID-19 virus Long-term use of high-risk medication Nicotine addiction PAD (peripheral artery disease) Paranoia Pneumonia Unspecified psychosis Surgical History H/O arthroscopic knee surgery History of cholecystectomy History of mitral valve repair History of tonsillectomy Family History Mother Breast cancer Uncle Diabetes Brother Diabetes Grandfather (Paternal) Diabetes Father Diabetes Grandmother (Maternal) Diabetes Colorectal cancer Social History Smoking Status: Unknown if ever smoked Tobacco Type: Cigarettes packs per day: 1; Cigarettes Per Day: 20; Second Hand Exposure: Yes; Do You Dip or Chew Tobacco: No; Hx Alcohol Use: Yes Alcohol type: beer and wine Hx Substance Use: No Preferred Language: Pakistani Communication Ability: sleeping Media Professional Required: No Beliefs That Will Affect Care: None marital status: Single Current Living Situation: Alone and Homeless Current Living Situation Comment: community housing/homeless current occupational status: disabled Feels Safe at Home: Yes Assistive Devices: None Review of Systems Review of Systems: CONST: Negative for fever, body aches and chills. HENT: Negative for neck pain/stiffness, headache, congestion, sore throat, swelling. EYES: Negative for discharge/pain or vision changes. RESP: Negative for cough/hemoptysis and shortness of breath. CV: Negative chest pain, difficulty breathing, palpitations. ABD: Negative pain, nausea, vomiting. : Negative increase frequency, dysuria, blood in urine or stool. MUSC: Negative for muscle aches, edema. SKIN: Negative rash, lesions/sores. NEURO: Unresponsive, rightward fixed gaze. Physical Exam Physical Exam: GENERAL APPEARANCE NAD, Unresponsive EYES lids/conjunctiva normal. EARS/NOSE/THROAT Mucous membranes moist, nares no rmal, lips/teeth normal uvula midline without oral pharyngeal erythema, exudate or swelling TMs normal bilaterally. No lymphangitis/lymphedema. HEAD/NECK normocephalic atraumatic, no facial trauma, neck is supple. RESPIRATORY respiratory effort normal, speaks in full sentences, no tripod position, no accessory muscle use. Lungs clear to auscultation without rhonchi, wheezes, rales CARDIAC Regular rate and rhythm, no edema. ABDOMINAL Soft, ND/NT. No evidence of fluid wave. No pulsatile masses on exam, rebound tenderness, Donald sign or pain over Mcburney's point. MUSCLES/EXTREMITIES No abnormal range of motion, no swelling. SKIN Warm, pink and dry. No rashes, dermatoses, petechiae or lesions. NEUROLOGICAL Responding only to sternal rub PSYCH Normal mood and affect. Judgement/competence is appropriate Results & Data Results & Data Vital Signs (Past 12 Hours) Vital Signs Temp Pulse Pulse Resp BP Pulse Ox O2 Del Method 12/25/24 14:00 74 13 145/76 H 98 Room Air 12/25/24 12:21 93 H 12/25/24 12:21 82 12 155/76 H 100 Room Air 12/25/24 11:38 83 15 99 Room Air 12/25/24 11:38 Room Air 12/25/24 11:09 88 17 97 Room Air 12/25/24 11:09 36.5 C 88 17 156/95 H 97 Room Air PG Care Time/CCT Total # of Minutes Spent Total Time Spent with Patient: Total time spent is greater than 50% in coordination of care (as documented) at patient's floor/unit and/or counseling patient: Coding Level of Care Code 81340 INT INP/OBS CARE MIN Diagnoses AMS (altered mental status) R41.82 UTI (urinary tract infection) N39.0 Schizophrenia, unspecified type F20.9 Schizophrenia type: unspecified COPD, moderate J44.9 HTN (hypertension) I10 Hyperlipidemia E78.5 Anxiety F41.9 Depression F32.9 (3) Schizophrenia Schizophrenia type: unspecified Qualified Code(s): F20.9 - Schizophrenia, unspecified
[2024-12-25] MEDS ORDERED: ALBUT/IPRATROP 3MG/0.5MG NEB 3 ML VIAL NEB PRN (15:23)
[2024-12-25] MEDS: GABAPENTIN 600 MG TAB PO SCH (17:09)
[2024-12-25] MEDS: DEXTROSE 50% 50 ML SYRINGE IV STA (17:22)
[2024-12-25] MEDS: HEPARIN SOD 5,000 UNIT/0.5 ML VIAL SQ SCH (17:22)
[2024-12-25] MEDS: ASPIRIN 81 MG ECTAB PO SCH (17:27)
[2024-12-25] MEDS: ATORVASTATIN 20 MG TAB PO SCH (17:27)
[2024-12-25] MEDS ORDERED: Nursing to Pharmacy Communication SCH (19:45)
[2024-12-25] MEDS ORDERED: GABAPENTIN 100 MG CAP PO SCH (21:00)
[2024-12-25] MEDS: DOCUSATE SODIUM 100 MG CAP PO SCH (21:30)
--- NOTE | 2024-12-26 05:32 | Electrocardiogram Report ---
Test Reason : Blood Pressure : */* mmHG Vent. Rate : 86 BPM Atrial Rate : 86 BPM P-R Int : 170 ms QRS Dur : 96 ms QT Int : 402 ms P-R-T Axes : 74 9 68 degrees QTcB Int : 481 ms Normal sinus rhythm Premature atrial complexes Low voltage QRS Inferior infarct (cited on or before 31-Oct-2010) Nonspecific T wave abnormality Abnormal ECG When compared with ECG of 29-Dec-2022 09:52, Borderline criteria for Anterior infarct are no longer Present Confirmed by Yaniv Hazel ([id number]) on 12/26/2024 5:32:04 AM Referred By: REFERRED SELF Confirmed By: Yaniv Hazel
[2024-12-26] MEDS: LEVOTHYROXINE SODIUM 88 MCG TABLET PO SCH (05:38)
--- NOTE | 2024-12-26 09:09 | Hospitalist Progress Note ---
Date of Service December 26, 2024 Assessment & Plan (1) AMS (altered mental status): Plan: -h/o schizophrenia -MDMA+ unclear if ecstasy or related to doxepin -CT head negative -pt with fixed gaze for 3 days, minimally responsive to sternal rub -psych consulted -NPO -D5 1/2NS IVF -MRI brain ordered (2) UTI (urinary tract infection): Plan: -rocephin -f/u urine C&S (3) Schizophrenia: Plan: -noted -psych consulted (4) COPD, moderate: Plan: -duonebs prn (5) HTN (hypertension): Plan: BP stable (6) Hyperlipidemia: Plan: -atorvastatin (7) Anxiety: Plan: con't home meds (8) Depression: Plan: con't home meds Plan Heparin SQ for DVT px Admission and Anticipated Discharge Date Admission Date: December 25, 2024 Subjective Pt remains unresponsive this am. Not arousable. Review of Systems Review of Systems: CONST: Negative for fever, body aches and chills. HENT: Negative for neck pain/stiffness, headache, congestion, sore throat, s welling. EYES: Negative for discharge/pain or vision changes. RESP: Negative for cough/hemoptysis and shortness of breath. CV: Negative chest pain, difficulty breathing, palpitations. ABD: Negative pain, nausea, vomiting. : Negative increase frequency, dysuria, blood in urine or stool. MUSC: Negative for muscle aches, edema. SKIN: Negative rash, lesions/sores. NEURO: Unresponsive, rightward fixed gaze. Physical Exam Physical Exam: GENERAL APPEARANCE NAD, Unresponsive EYES lids/conjunctiva normal. EARS/NOSE/THROAT Mucous membranes moist, nares normal, lips/teeth normal uvula midline without oral pharyngeal erythema, exudate or swelling TMs normal bilaterally. No lymphangitis/lymphedema. HEAD/NECK normocephalic atraumatic, no facial trauma, neck is supple. RESPIRATORY respiratory effort normal, speaks in full sentences, no tripod position, no accessory muscle use. Lungs clear to auscultation without rhonchi, wheezes, rales CARDIAC Regular rate and rhythm, no edema. ABDOMINAL Soft, ND/NT. No evidence of fluid wave. No pulsatile masses on exam, rebound tenderness, Donald sign or pain over Mcburney's point. MUSCLES/EXTREMITIES No abnormal range of motion, no swelling. SKIN Warm, pink and dry. No rashes, dermatoses, petechiae or lesions. NEUROLOGICAL Responding only to sternal rub PSYCH Normal mood and affect. Judgement/competence is appropriate Results & Data Results & Data Vital Signs (Past 12 Hours) Vital Signs Temp Pulse Pulse Resp BP Pulse Ox O2 Del Method 12/26/24 08:22 36.8 C 75 16 142/70 H 97 Room Air 12/26/24 03:10 36.0 C L 73 18 155/79 H 96 Room Air 12/25/24 22:40 36.3 C L 71 18 133/76 98 Room Air 12/25/24 21:48 69 PG Care Time/CCT Total # of Minutes Spent Total Time Spent with Patient: Total time spent is greater than 50% in coordination of care (as documented) at patient's floor/unit and/or counseling patient: Coding Level of Care Code 80777 SUB INP/OBS CARE 2/35MIN Diagnoses AMS (altered mental status) R41.82 UTI (urinary tract infection) N39.0 Schizophrenia, unspecified type F20.9 Schizophrenia type: unspecified COPD, moderate J44.9 HTN (hypertension) I10 Hyperlipidemia E78.5 Anxiety F41.9 Depression F32.9 (3) Schizophrenia Schizophrenia type: unspecified Qualified Code(s): F20.9 - Schizophrenia, unspecified
[2024-12-26] MEDS: OMEGA-3 (PURIFIED FISH OIL) 1 GM CAP PO SCH (09:40)
[2024-12-26] MEDS: DOXEPIN HCL 50 MG CAPSULE PO SCH (09:40)
[2024-12-26] MEDS: ASCORBIC ACID 500 MG TAB PO SCH (09:40)
[2024-12-26] MEDS: CHOLECALCIFEROL 125 MCG (5,000 UNITS) TAB PO SCH (09:40)
[2024-12-26] MEDS: POTASSIUM CHLORIDE 10 MEQ TABCR PO SCH (09:40)
[2024-12-26] MEDS: PSYLLIUM HUSK 4GM PACKET PO SCH (09:40)
[2024-12-26] MEDS: D5W AND 1/2NSS 1,000 ML IV SCH (10:30)
--- NOTE | 2024-12-26 10:51 | Psychiatric Consultation ---
Date of Consultation December 26, 2024 Impression / Recommendations Impression 64 y/o F h/o Schizoaffective disorder, COPD, HTN, HLD, who presents with AMS in the context of active UTI. Psychiatry consulted for evaluation. Concern for catatonia with mutism, stupor. Responded well to Lorazepam 2mg IV challenge with marked improvement in symptoms. Pt has h/o Schizoaffective disorder, historically has required structured living due to recurrent erratic behaviors, psychosis. She presents poor insight into her condition. Recommend to continue Lorazepam and will taper. Plan to optimize antipsychotic dose slowly. Overall, I spent a total of 80 minutes with this case including review of chart records, nursing report, review of lab work, direct evaluation of the patient at bedside, counseling the patient, discussion of the patient with the hospitalist provider, discussion with the psychiatric liaison during clinical rounds, and documentation in the electronic health record. (1) Catatonia: (2) Schizoaffective disorder: (3) UTI (urinary tract infection): (4) AMS (altered mental status): Plan 12/26/24: Lorazepam IV 1mg TID, can decrease dose if hypotensive, bradypneic, or causing excess sedation Continue home Trazodone 100mg HS, Doxepin 100mg HS, Quetiapine XR 100mg QPM Psychiatry consults to follow Psych History Identifying Data 64 y/o F h/o Schizoaffective disorder, COPD, HTN, HLD, who presents with AMS in the context of active UTI. Psychiatry consulted for evaluation. Chief Complaint AMS, Stupor, Mutism History of Present Illness The patient is unresponsive during interview. Minimally responsive to sternal rub. Fixed gaze. No spontaneous movements. No posturing. Flat affect. No waxy flexibility. Unable to participate in the interview. Vitals stable. Nursing staff notes pt has followed commands overnight sporadically. After receiving Lorazepam 2mg IV, pt was alert and conversing. Reports having worsening UTI symptoms over the weekend and couldn't get up. BF called ambulance to get her help. Saying her main problem is lack of sleep and needs melatonin. Reports being in different facilities after leaving the [facility] and most recently at a [facility] at [place] prior to staying with boyfriend. Denies AVH and says she never experienced this. Says at an old facility people told her she did things she didn't and they were "lies" and got evicted. Pt unable to tell me why she stopped Abilify earlier this year. Chart review: >3mo hospitalization at [facility] from 10/22/20 to 01/21/21 for Schizoaffective disorder. Presented after demonstrating disruptive behavior at her [facility]. Documented concern for catatonic state during hospitalization. Was placed on Quetiapine 600mg daily total and Duloxetine 60mg daily. Was discharged to a state facility. In december of 2022 was living in [facility] living on a 305 commitment, concern for catatonia then and was involuntarily committed to the [facility] facility. Meds last filled this month. Allergies Allergy/AdvReac Type Severity Reaction Status Date / Time Penicillins Allergy Unknown RASH Verified 12/29/22 11:40 perphenazine Allergy Unknown SWELLING Verified 12/29/22 11:40 ALL OVER BODY prednisone AdvReac Severe not able Verified 12/29/22 11:40 to sleep azithromycin AdvReac Hives Verified 12/29/22 11:40 Home Medications Medication Instructions Recorded Confirmed Type aspirin 81 mg tablet,delayed 81 mg PO DAILY #90 tabs 10/18/20 12/25/24 Rx release levothyroxine 88 mcg tablet 88 mcg PO DAILYBB #30 tabs 10/18/20 12/25/24 Rx (Synthroid) omega-3 fatty acids-fish oil 684 1 cap PO DAILY #30 caps 10/18/20 12/25/24 Rx mg-1,200 mg capsule,delayed release docusate sodium 100 mg capsule 100 mg PO BID #0 caps 01/22/21 12/25/24 Rx acetaminophen 325 mg tablet 650 mg PO Q4H PRN PAIN OR FEVER 12/29/22 12/25/24 History ascorbic acid (vitamin C) 1,000 mg 1 g PO DAILY 12/29/22 12/25/24 History tablet (Vitamin C) cholecalciferol (vitamin D3) 125 125 mcg PO DAILY 12/29/22 12/25/24 History mcg (5,000 unit) tablet (Vitamin D3) gabapentin 600 mg tablet 600 mg PO TID 12/29/22 12/25/24 History psyllium seed (sugar) oral powder 2 tsp PO QAM 12/29/22 12/25/24 History (Metamucil (sugar) oral powder) sodium chloride 0.65 % nasal spray 2 spray intranasal DAILY PRN 12/29/22 12/25/24 History aerosol (Saline Nasal Mist) CONGESTION OR NASAL DRYNESS aluminum-mag hydroxide-simethicone 10 ml PO QID PRN Stomach Issues 12/25/24 12/25/24 History 200 mg-200 mg-20 mg/5 mL oral susp atorvastatin 20 mg tablet 20 mg PO DAILY 12/25/24 12/25/24 History doxepin 100 mg capsule 100 mg PO DAILY 12/25/24 12/25/24 History gabapentin 100 mg capsule 100 mg PO BID 12/25/24 12/25/24 History guaifenesin 100 mg/5 mL oral liquid 200 mg PO Q4H PRN Cough/Congestion 12/25/24 12/25/24 History pantoprazole 40 mg tablet,delayed 40 mg PO DAILY 12/25/24 12/25/24 History release potassium chloride 10 mEq 10 meq PO DAILY 12/25/24 12/25/24 History tablet,extended release quetiapine 50 mg tablet,extended 100 mg PO QPM 12/25/24 12/25/24 History release 24 hr trazodone 50 mg tablet 100 mg PO HS 12/25/24 12/25/24 History Patient History Medical History Pneumonia Intentional drug overdose Bilateral pneumonia Constipation Lab test negative for COVID-19 virus Paranoia Long-term use of high-risk medication PAD (peripheral artery disease) Current smoker History of myocardial infarction in adulthood COPD (chronic obstructive pulmonary disease) Chronic osteomyelitis Surgical History History of cholecystectomy H/O arthroscopic knee surgery History of tonsillectomy History of mitral valve repair Family History Mother Breast cancer Uncle Diabetes Brother Diabetes Grandfather (Paternal) Diabetes Father Diabetes Grandmother (Maternal) Diabetes Colorectal cancer Social History Smoking Status: Unknown if ever smoked Tobacco Type: Cigarettes packs per day: 1; Cigarettes Per Day: 20; Second Hand Exposure: Yes; Do You Dip or Chew Tobacco: No; Hx Alcohol Use: No Hx Substance Use: Yes Last Used Substance: Days (ago) Preferred Language: Croatian Communication Ability: sleeping Bail Agent Required: No Beliefs That Will Affect Care: None marital status: Single Current Living Situation: Alone and Homeless Current Living Situation Comment: community housing/homeless current occupational status: disabled Feels Safe at Home: Declines to Answer Assistive Devices: None Physical Exam Mental Examination: Appearance: Disheveled Eye Contact: Maintains Eye Contact Motor Behavior: Unremarkable Speech: Normal Mood: Euthymic and Calm Affect: Congruent Thought Process: [place] and Goal Oriented Thought Content: Circumstantial Hallucinations: None Insight: Poor Judgement: Poor Vital Signs (Past 24 Hours): Last Vital Signs Temp 36.8 C 12/26/24 08:22 Pulse 75 12/26/24 08:22 Resp 16 12/26/24 08:22 BP 142/70 H 12/26/24 08:22 Pulse Ox 97 12/26/24 08:22 O2 Del Method Room Air 12/26/24 08:22 Results & Data (PSY) Medications Administered Ascorbic Acid (Ascorbic Acid 500 Mg Tab) 500 mg PO DAILY [facility] Stop: 01/25/25 08:59 Last Admin: 12/26/24 09:40 Dose: Not Given Documented By: LAINEY Aspirin (Aspirin 81 Mg Ectab) 81 mg PO DAILY [facility] Stop: 01/24/25 13:44 Last Admin: 12/26/24 09:40 Dose: Not Given Documented By: Admin: 12/25/24 17:27 Dose: Not Given Documented By: JONH Atorvastatin Calcium (Atorvastatin 20 Mg Tab) 20 mg PO DAILY [facility] Stop: 01/24/25 13:44 Last Admin: 12/26/24 09:40 Dose: Not Given Documented By: Admin: 12/25/24 17:27 Dose: Not Given Documented By: JONH Docusate Sodium (Docusate Sodium 100 Mg Cap) 100 mg PO BID [facility] Stop: 01/24/25 20:59 Last Admin: 12/26/24 09:40 Dose: Not Given Documented By: Admin: 12/25/24 21:30 Dose: Not Given Documented By: [id number] Doxepin HCl (Doxepin Hcl 50 Mg Capsule) 100 mg PO DAILY [facility] Stop: 01/25/25 08:59 Last Admin: 12/26/24 09:40 Dose: Not Given Documented By: ESL Fish Oil ([place]-3 (Purified Fish Oil) 1 Gm Cap) 1 cap PO DAILY [facility] Stop: 01/25/25 08:59 Last Admin: 12/26/24 09:40 Dose: Not Given Documented By: ESL Heparin Sodium (Porcine) (Heparin Sod 5,000 Unit/0.5 Ml Vial) 5,000 units SQ Q8 [facility] Stop: 01/24/25 13:59 Last Admin: 12/26/24 05:40 Dose: 5,000 units Documented By: [id number] Admin: 12/25/24 21:38 Dose: 5,000 units Documented By: [id number] Admin: 12/25/24 17:22 Dose: 5,000 units Documented By: JONH Dextrose/Sodium Chloride (D5w And 1/2nss) 1,000 mls @ 80 mls/hr IV .[id number] [facility] Stop: 12/29/24 09:14 Last Admin: 12/26/24 10:30 Dose: 80 mls/hr Documented By: ESL Levothyroxine Sodium (Levothyroxine Sodium 88 Mcg Tablet) 88 mcg PO DAILYBB [facility] Stop: 01/25/25 06:29 Last Admin: 12/26/24 05:38 Dose: Not Given Documented By: [id number] Pantoprazole Sodium (Pantoprazole 40 Mg Tab) 40 mg PO DAILY [facility] Stop: 01/25/25 08:59 Last Admin: 12/26/24 09:40 Dose: Not Given Documented By: ESL Potassium Chloride (Potassium Chloride 10 Meq Tabcr) 10 meq PO DAILY [facility] Stop: 01/25/25 08:59 Last Admin: 12/26/24 09:40 Dose: Not Given Documented By: ESL Psyllium Hydrophilic Mucilloid (Psyllium Husk 4gm Packet) 4 gm PO QAM [facility] Stop: 01/25/25 08:59 Last Admin: 12/26/24 09:40 Dose: Not Given Documented By: ESL Quetiapine Fumarate (Quetiapine Fumarate 50 Mg Tabcr) 100 mg PO QPM [facility] Stop: 01/24/25 20:59 Last Admin: 12/25/24 21:30 Dose: Not Given Documented By: [id number] Trazodone HCl (Trazodone Hcl 100 Mg Tab) 100 mg PO HS [facility] Stop: 01/24/25 20:59 Last Admin: 12/25/24 21:30 Dose: Not Given Documented By: [id number] Vitamin D (Cholecalciferol 125 Mcg (5,000 Units) Tab) 125 mcg PO DAILY [facility]UN[facility] Stop: 01/25/25 08:59 Last Admin: 12/26/24 09:40 Dose: Not Given Documented By: ESL [place] [address] IN/OBS CONSULT LVL 5,80M Patient Type New History Comprehensive Exam Comprehensive Medical Decision Making High Complexity Diagnoses Catatonia F06.1 Schizoaffective disorder F25.9 UTI (urinary tract infection) N39.0 AMS (altered mental status) R41.82
[2024-12-26 11:39] LABS: Blood Urea Nitrogen 6 mg/dl (6-23); Calcium 8.7 mg/dl (8.6-10.3); Carbon Dioxide 23 mmol/L (21-32); Chloride 107 mmol/L (98-107); Creatinine Clr Calc Pharmacy 81.3 ml/min; Glucose 105 mg/dl (70-99(Fasting))
[2024-12-26] MEDS: cefTRIAXone SODIUM 1,000 MG/50 ML BAG IV SCH (12:19)
[2024-12-26 12:43] LABS: Hematocrit (blood only) 42.3 % (37.0-47.0); Hemoglobin 14.3 g/dl (12.0-16.0); Mean Corpuscular Hemoglobin 30.0 pg (25.0-34.0); Mean Corpuscular Volume 88.7 fL (80.0-100.0); Platelet Count 188 K/uL (130-400); RDW Standard Deviation 46.3 fL (36.4-46.3); Red Blood Count 4.77 M/uL (4.20-5.40); White Blood Count 5.88 K/ul (4.8-10.8)
[2024-12-26 12:44] LABS: Potassium 3.8 mmol/L (3.5-5.1); Sodium 139.0 mmol/L (136-145)
[2024-12-26] MEDS: ACETAMINOPHEN 325 MG TAB PO PRN (17:39)
[2024-12-27] MEDS: LACTATED RINGER'S 500 ML IV ONE (00:24)
[2024-12-27] MEDS: ALBUMIN 25% 25 GM/100 ML VIAL IV ONE (00:24)
[2024-12-27 07:16] LABS: Hematocrit (blood only) 35.6 % (37.0-47.0); Hemoglobin 11.7 g/dl (12.0-16.0); Mean Corpuscular Hemoglobin 29.3 pg (25.0-34.0); Mean Corpuscular Volume 89.0 fL (80.0-100.0); Platelet Count 196 K/uL (130-400); RDW Standard Deviation 47.5 fL (36.4-46.3); Red Blood Count 4.00 M/uL (4.20-5.40); White Blood Count 5.62 K/ul (4.8-10.8)
[2024-12-27 07:45] LABS: Anion Gap 5.0 (3-11); Blood Urea Nitrogen 9.0 mg/dl (6-23); Calcium 8.8 mg/dl (8.6-10.3); Carbon Dioxide 29.0 mmol/L (21-32); Chloride 108.0 mmol/L (98-107); Creatinine Clr Calc Pharmacy 61.3 ml/min; Glucose 104.0 mg/dl (70-99(Fasting)); Potassium 3.7 mmol/L (3.5-5.1); Sodium 142.0 mmol/L (136-145)
--- NOTE | 2024-12-27 09:44 | Hospitalist Progress Note ---
Date of Service December 27, 2024 Assessment & Plan (1) AMS (altered mental status): Plan: -h/o schizoaffective disorder -catatonia -pysch consult appreicated -pt responded well to ativan challenge -cont' 1mg IV TID -con't doxepin, quetiapine, trazadone (2) UTI (urinary tract infection): Plan: -rocephin -f/u urine C&S (3) Schizophrenia: Plan: -noted -psych consult appreciated (4) COPD, moderate: Plan: -duonebs prn (5) HTN (hypertension): Plan: BP stable (6) Hyperlipidemia: Plan: -atorvastatin (7) Anxiety: Plan: con't home meds (8) Depression: Plan: con't home meds Plan Heparin SQ for DVT px Admission and Anticipated Discharge Date Admission Date: December 25, 2024 Subjective Pt alert responsive this am, no events overnight. Review of Systems Review of Systems: CONST: Negative for fever, body aches and chills. HENT: Negative for neck pain/stiffness, headache, congestion, sore throat, swelling. EYES: Negative for discharge/pain or vision changes. RESP: Negative for cough/hemoptysis and shortness of breath. CV: Negative chest pain, difficulty breathing, palpitations. ABD: Negative pain, nausea, vomiting. : Negative increase frequency, dysuria, blood in urine or stool. MUSC: Negative for muscle aches, edema. SKIN: Negative rash, lesions/sores. NEURO: Negative headache, dizziness, weakness. Physical Exam Physical Exam: GENERAL APPEARANCE NAD, activity normal for age, well developed/ well nourished, no cyanosis, pallor, or diaphoresis. EYES lids/conjunctiva normal. EARS/NOSE/THROAT Mucous membranes moist, nares normal, lips/teeth normal uvula midline without oral pharyngeal erythema, exudate or swelling TMs normal bilaterally. No lymphangitis/lymphedema. HEAD/NECK normocephalic atraumatic, no facial trauma, neck is supple. RESPIRATORY respiratory effort normal, speaks in full sentences, no tripod position, no accessory muscle use. Lungs clear to auscultation without rhonchi, wheezes, rales CARDIAC Regular rate and rhythm, no edema. ABDOMINAL Soft, ND/NT. No evidence of fluid wave. No pulsatile masses on exam, rebound tenderness, Donald sign or pain over Mcburney's point. MUSCLES/EXTREMITIES No abnormal range of motion, no swelling. SKIN Warm, pink and dry. No rashes, dermatoses, petechiae or lesions. NEUROLOGICAL Speech is clear and appropriate. Normal level of consciousness. Gait and coordination are normal. 5/5 strength in all extremities. PSYCH Normal mood and affect. Judgement/competence is appropriate Results & Data Results & Data Vital Signs (Past 12 Hours) Vital Signs Temp Pulse Pulse Resp BP Pulse Ox O2 Del Method 12/27/24 07:22 68 12/27/24 07:06 36.5 C 77 20 116/72 94 Room Air 12/27/24 02:30 36.8 C 84 18 97/64 L 100 Room Air 12/26/24 23:28 36.7 C 87 18 73/55 L 99 Room Air 12/26/24 22:10 92 H PG Care Time/CCT Total # of Minutes Spent Total Time Spent with Patient: Total time spent is greater than 50% in coordination of care (as documented) at patient's floor/unit and/or counseling patient: Coding Level of Care Code 24601 SUB INP/OBS CARE 2/35MIN Diagnoses AMS (altered mental status) R41.82 UTI (urinary tract infection) N39.0 Schizophrenia, unspecified type F20.9 Schizophrenia type: unspecified COPD, moderate J44.9 HTN (hypertension) I10 Hyperlipidemia E78.5 Anxiety F41.9 Depression F32.9 (3) Schizophrenia Schizophrenia type: unspecified Qualified Code(s): F20.9 - Schizophrenia, unspecified
--- NOTE | 2024-12-27 14:58 | Psychiatric Progress Note ---
Date of Service December 27, 2024 Impression / Recommendations Impression 64 y/o F h/o Schizoaffective disorder, COPD, HTN, HLD, who presents with AMS in the context of active UTI. Psychiatry consulted for evaluation. Concern for catatonia with mutism, stupor. Responded well to Lorazepam 2mg IV challenge with marked improvement in symptoms. Pt has h/o Schizoaffective disorder, historically has required structured living due to recurrent erratic behaviors, psychosis. She presents poor insight into her condition. Recommend to continue Lorazepam and will taper. Plan to optimize antipsychotic dose slowly. A: Tolerating lorazepam well. She is alert and functioning well. Collateral from boyfriend gives no indication of recent psychosis or mood episode. Catatonic state likely induced by stress related to UTI. Plan to transition to oral lorazepam today. Overall, I spent a total of 80 minutes with this case including review of chart records, nursing report, review of lab work, direct evaluation of the patient at bedside, counseling the patient, discussion of the patient with the hospitalist provider, discussion with the psychiatric liaison during clinical rounds, and documentation in the electronic health record. (1) Catatonia: (2) Schizoaffective disorder: (3) UTI (urinary tract infection): (4) AMS (altered mental status): Plan 12/27/24: Transition to oral Lorazepam 1mg TID 12/26/24: Lorazepam IV 1mg TID, can decrease dose if hypotensive, bradypneic, or causing excess sedation Continue home Trazodone 100mg HS, Doxepin 100mg HS, Quetiapine XR 100mg QPM Psychiatry consults to follow Interval History Identifying Information 64 y/o F h/o Schizoaffective disorder, COPD, HTN, HLD, who presents with AMS in the context of active UTI. Psychiatry consulted for evaluation. Chief Complaint Catatonia Subjective Subjective Pt is alert and oriented to self place date situation. Reports fair mood. Feels safe. Denies recent AVH, low mood. Was doing well until the weekend and was on the couch, not eating, and stopped meds. Collateral from BF indicates no recent concerns for psychosis or erratic behaviors. Pt does not have PCP or psychiatrist currently. Physical Exam Mental Examination Appearance: Disheveled Eye Contact: Maintains Eye Contact Motor Behavior: Unremarkable Speech: Normal Mood: Euthymic and Calm Affect: Congruent Thought Process: [place] and Goal Oriented Thought Content: Circumstantial Hallucinations: None Insight: Poor Judgement: Poor Vital Signs (Past 24 Hours) Last Vital Signs Temp 36.7 C 12/27/24 14:34 Pulse 77 12/27/24 14:38 Resp 18 12/27/24 14:34 BP 120/68 12/27/24 14:34 Pulse Ox 99 12/27/24 14:34 O2 Del Method Room Air 12/27/24 14:34 Results & Data ([facility]) Laboratory Results Laboratory Results - last 24 hr 12/27/24 06:57 WBC 5.62 RBC 4.00 L Hgb 11.7 L Hct 35.6 L MCV 89.0 MCH 29.3 MCHC 32.9 RDW Std Deviation 47.5 H RDW Coeff of Samreen 14.7 H Plt Count 196 MPV 10.7 Sodium 142 Potassium 3.7 Chloride 108 H Carbon Dioxide 29 Anion Gap 5 BUN 9 Creatinine 0.83 Est Cr Clr Drug Dosing 61.3 eGFR 79.16 BUN/Creatinine Ratio 10.8 Glucose 104 H Calcium 8.8 Current Inpatient Medications Current Inpatient Medications: Current Inpatient Medications Acetaminophen (Acetaminophen 325 Mg Tab) 650 mg PO Q4H PRN PRN Reason: PAIN OR FEVER Stop: 01/24/25 13:39 Last Admin: 12/26/24 17:39 Dose: 650 mg Al Hydrox/Mg Hydrox/Simethicone (Aluminum/Magnesium/Simeth (Maalox Max) 30 Ml Udc) 15 ml PO QID PRN PRN Reason: Stomach Issues Stop: 01/24/25 15:21 Albuterol (Albut/Ipratrop 3mg/0.5mg Neb 3 Ml Vial) 3 ml NEB Q6R PRN; Protocol PRN Reason: sob Stop: 01/24/25 15:22 Ascorbic Acid (Ascorbic Acid 500 Mg Tab) 500 mg PO DAILY [facility] Stop: 01/25/25 08:59 Last Admin: 12/27/24 09:16 Dose: 500 mg Aspirin (Aspirin 81 Mg Ectab) 81 mg PO DAILY [facility] Stop: 01/24/25 13:44 Last Admin: 12/27/24 09:16 Dose: 81 mg Atorvastatin Calcium (Atorvastatin 20 Mg Tab) 20 mg PO DAILY [facility] Stop: 01/24/25 13:44 Last Admin: 12/27/24 09:16 Dose: 20 mg Docusate Sodium (Docusate Sodium 100 Mg Cap) 100 mg PO BID [facility] Stop: 01/24/25 20:59 Last Admin: 12/27/24 09:21 Dose: 100 mg Doxepin HCl (Doxepin Hcl 50 Mg Capsule) 100 mg PO DAILY [facility] Stop: 01/25/25 08:59 Last Admin: 12/27/24 09:15 Dose: 100 mg Fish Oil ([place]-3 (Purified Fish Oil) 1 Gm Cap) 1 cap PO DAILY [facility] Stop: 01/25/25 08:59 Last Admin: 12/27/24 09:16 Dose: 1 cap Guaifenesin (Guaifenesin Sugar Free 100 Mg/5 Ml Udc) 200 mg PO Q4H PRN PRN Reason: Cough/Congestion Stop: 01/24/25 13:39 Heparin Sodium (Porcine) (Heparin Sod 5,000 Unit/0.5 Ml Vial) 5,000 units SQ Q8 [facility] Stop: 01/24/25 13:59 Last Admin: 12/27/24 14:28 Dose: Not Given Ceftriaxone Sodium (Rocephin) 1,000 mg in 50 mls @ 100 mls/hr IV Q24H [facility] Stop: 12/31/24 11:59 Last Infusion: 12/27/24 13:29 Dose: Infused Dextrose/Sodium Chloride (D5w And 1/2nss) 1,000 mls @ 80 mls/hr IV .[id number] [facility] Stop: 12/29/24 09:14 Last Admin: 12/27/24 09:27 Dose: 80 mls/hr Levothyroxine Sodium (Levothyroxine Sodium 88 Mcg Tablet) 88 mcg PO DAILYBB [facility] Stop: 01/25/25 06:29 Last Admin: 12/27/24 06:00 Dose: 88 mcg Lorazepam (Lorazepam 2 Mg/1 Ml Vial) 1 mg IV TID [facility] Stop: 01/25/25 20:59 Last Admin: 12/27/24 09:27 Dose: 1 mg Ondansetron HCl (Ondansetron Inj 2 Mg/Ml 2 Ml Vial) 4 mg IV Q6H PRN PRN Reason: Nausea Stop: 01/24/25 13:41 Pantoprazole Sodium (Pantoprazole 40 Mg Tab) 40 mg PO DAILY [facility] Stop: 01/25/25 08:59 Last Admin: 12/27/24 09:16 Dose: 40 mg Potassium Chloride (Potassium Chloride 10 Meq Tabcr) 10 meq PO DAILY [facility] Stop: 01/25/25 08:59 Last Admin: 12/27/24 09:20 Dose: 10 meq Psyllium Hydrophilic Mucilloid (Psyllium Husk 4gm Packet) 4 gm PO QAM [facility] Stop: 01/25/25 08:59 Last Admin: 12/27/24 09:17 Dose: Not Given Quetiapine Fumarate (Quetiapine Fumarate 50 Mg Tabcr) 100 mg PO QPM [facility] Stop: 01/24/25 20:59 Last Admin: 12/26/24 20:15 Dose: 100 mg Trazodone HCl (Trazodone Hcl 100 Mg Tab) 100 mg PO HS [facility] Stop: 01/24/25 20:59 Last Admin: 12/26/24 20:16 Dose: 100 mg Vitamin D (Cholecalciferol 125 Mcg (5,000 Units) Tab) 125 mcg PO DAILY [facility] Stop: 01/25/25 08:59 Last Admin: 12/27/24 09:15 Dose: 125 mcg
[2024-12-27] MEDS: LORazepam 1 MG TAB PO SCH (20:53)
[2024-12-28 07:07] LABS: Hematocrit (blood only) 33.7 % (37.0-47.0); Hemoglobin 11.4 g/dl (12.0-16.0); Mean Corpuscular Hemoglobin 30.2 pg (25.0-34.0); Mean Corpuscular Volume 89.2 fL (80.0-100.0); Platelet Count 200 K/uL (130-400); RDW Standard Deviation 48.9 fL (36.4-46.3); Red Blood Count 3.78 M/uL (4.20-5.40); White Blood Count 6.00 K/ul (4.8-10.8)
[2024-12-28 07:28] LABS: Anion Gap 8.0 (3-11); Blood Urea Nitrogen 12.0 mg/dl (6-23); Calcium 9.0 mg/dl (8.6-10.3); Carbon Dioxide 26.0 mmol/L (21-32); Chloride 106.0 mmol/L (98-107); Creatinine Clr Calc Pharmacy 62.8 ml/min; Glucose 101.0 mg/dl (70-99(Fasting)); Potassium 4.0 mmol/L (3.5-5.1); Sodium 140.0 mmol/L (136-145)
--- NOTE | 2024-12-28 09:06 | Hospitalist Progress Note ---
Date of Service December 28, 2024 Assessment & Plan (1) AMS (altered mental status): Plan: -h/o schizoaffective disorder -catatonia -pysch consult appreciated -pt responded well to ativan challenge -cont' 1mg PO TID -con't doxepin, quetiapine, trazodone - case management follow up for discharge to Adult home (2) UTI (urinary tract infection): Plan: -rocephin -f/u urine C&S (3) Schizophrenia: Plan: -noted -psych consult appreciated (4) COPD, moderate: Plan: -duonebs prn (5) HTN (hypertension): Plan: BP stable (6) Hyperlipidemia: Plan: -atorvastatin (7) Anxiety: Plan: con't home meds (8) Depression: Plan: con't home meds Plan Heparin SQ for DVT px Admission and Anticipated Discharge Date Admission Date: December 25, 2024 Subjective No events overnight. Pt resting in bed. Review of Systems Review of Systems: CONST: Negative for fever, body aches and chills. HENT: Negative for neck pain/stiffness, headache, congestion, sore throat, swelling. EYES: Negative for discharge/pain or vision changes. RESP: Negative for cough/hemoptysis and shortness of breath. CV: Negative chest pain, difficulty breathing, palpitations. ABD: Negative pain, nausea, vomiting. : Negative increase frequency, dysuria, blood in urine or stool. MUSC: Negative for muscle aches, edema. SKIN: Negative rash, lesions/sores. NEURO: Negative headache, dizziness, weakness. Physical Exam Physical Exam: GENERAL APPEARANCE NAD, activity normal for age, well developed/ well nourished, no cyanosis, pallor, or diaphoresis. EYES lids/conjunctiva normal. EARS/NOSE/THROAT Mucous membranes moist, nares normal, lips/teeth normal uvula midline without oral pharyngeal erythema, exudate or swelling TMs normal bilaterally. No lymphangitis/lymphedema. HEAD/NECK normocephalic atraumatic, no facial trauma, neck is supple. RESPIRATORY respiratory effort normal, speaks in full sentences, no tripod position, no accessory muscle use. Lungs clear to auscultation without rhonchi, wheezes, rales CARDIAC Regular rate and rhythm, no edema. ABDOMINAL Soft, ND/NT. No evidence of fluid wave. No pulsatile masses on exam, rebound tenderness, Donald sign or pain over Mcburney's point. MUSCLES/EXTREMITIES No abnormal range of motion, no swelling. SKIN Warm, pink and dry. No rashes, dermatoses, petechiae or lesions. NEUROLOGICAL Speech is clear and appropriate. Normal level of consciousness. Gait and coordination are normal. 5/5 strength in all extremities. PSYCH Normal mood and affect. Judgement/competence is appropriate Results & Data Results & Data Vital Signs (Past 12 Hours) Vital Signs Temp Pulse Pulse Resp BP Pulse Ox O2 Del Method 12/28/24 08:25 36.7 C 81 18 91/69 L 97 Room Air 12/28/24 07:26 79 12/28/24 03:29 36.9 C 78 18 119/72 95 Room Air 12/27/24 23:31 36.6 C 85 18 128/71 95 Room Air 12/27/24 23:14 84 PG Care Time/CCT Total # of Minutes Spent Total Time Spent with Patient: Total time spent is greater than 50% in coordination of care (as documented) at patient's floor/unit and/or counseling patient: Coding Level of Care Code 75889 SUB INP/OBS CARE 2/35MIN Diagnoses AMS (altered mental status) R41.82 UTI (urinary tract infection) N39.0 Schizophrenia, unspecified type F20.9 Schizophrenia type: unspecified COPD, moderate J44.9 HTN (hypertension) I10 Hyperlipidemia E78.5 Anxiety F41.9 Depression F32.9 (3) Schizophrenia Schizophrenia type: unspecified Qualified Code(s): F20.9 - Schizophrenia, unspecified
--- NOTE | 2024-12-28 13:36 | Psychiatric Progress Note ---
Date of Service December 28, 2024 Impression / Recommendations Impression 64 y/o F h/o Schizoaffective disorder, COPD, HTN, HLD, who presents with AMS in the context of active UTI. Psychiatry consulted for evaluation. Concern for catatonia with mutism, stupor. Responded well to Lorazepam 2mg IV challenge with marked improvement in symptoms. Pt has h/o Schizoaffective disorder, historically has required structured living due to recurrent erratic behaviors, psychosis. She presents poor insight into her condition. Recommend to continue Lorazepam and will taper. Plan to optimize antipsychotic dose slowly. A: Mild hypotension after lorazepam admin. She is alert and oriented. Pt now re fusing medications; unclear as to why. Pt has h/o behavioral issues. Plan to taper lorazepam dosing. Overall, I spent a total of 30 minutes with this case including review of chart records, nursing report, review of lab work, direct evaluation of the patient at bedside, counseling the patient, discussion of the patient with the hospitalist provider, discussion with the psychiatric liaison during clinical rounds, and documentation in the electronic health record. (1) Catatonia: (2) Schizoaffective disorder: (3) UTI (urinary tract infection): (4) AMS (altered mental status): Plan 12/28/24: Lorazepam 0.5mg QAM, 0.5mg Q2pm, 1mg HS IV/PO 12/27/24: Transition to oral Lorazepam 1mg TID 12/26/24: Lorazepam IV 1mg TID, can decrease dose if hypotensive, bradypneic, or causing excess sedation Continue home Trazodone 100mg HS, Doxepin 100mg HS, Quetiapine XR 100mg QPM Psychiatry consults to follow Interval History Identifying Information 64 y/o F h/o Schizoaffective disorder, COPD, HTN, HLD, who presents with AMS in the context of active UTI. Psychiatry consulted for evaluation. Chief Complaint Catatonia Subjective Subjective Pt refused AM meds. Was transitioned back to Lorazepam IV. Patient appears withdrawn and sad. She is alert and oriented. Would not disclose what is bothering her. Reports speaking to her boyfriend yesterday and denies any problems. When asked about medication non-adherence remains silent; even after explaining importance of transitioning to oral medications. Unwilling to share further. Physical Exam Mental Examination Appearance: Disheveled Eye Contact: Maintains Eye Contact Motor Behavior: Unremarkable Speech: Normal Mood: Euthymic and Calm Affect: Congruent Thought Process: [place] and Goal Oriented Thought Content: Circumstantial Hallucinations: None Insight: Poor Judgement: Poor Vital Signs (Past 24 Hours) Last Vital Signs Temp 36.5 C 12/28/24 11:39 Pulse 81 12/28/24 11:39 Resp 16 12/28/24 11:39 BP 132/77 12/28/24 11:39 Pulse Ox 97 12/28/24 11:39 O2 Del Method Room Air 12/28/24 11:39 Results & Data ([facility]) Laboratory Results Laboratory Results - last 24 hr 12/28/24 06:13 WBC 6.00 RBC 3.78 L Hgb 11.4 L Hct 33.7 L MCV 89.2 MCH 30.2 MCHC 33.8 RDW Std Deviation 48.9 H RDW Coeff of Samreen 15.0 H Plt Count 200 MPV 11.3 Sodium 140 Potassium 4.0 Chloride 106 Carbon Dioxide 26 Anion Gap 8 BUN 12 Creatinine 0.81 Est Cr Clr Drug Dosing 62.8 eGFR 81.52 BUN/Creatinine Ratio 14.8 Glucose 101 H Calcium 9.0 Current Inpatient Medications Current Inpatient Medications: Current Inpatient Medications Acetaminophen (Acetaminophen 325 Mg Tab) 650 mg PO Q4H PRN PRN Reason: PAIN OR FEVER Stop: 01/24/25 13:39 Last Admin: 12/26/24 17:39 Dose: 650 mg Al Hydrox/Mg Hydrox/Simethicone (Aluminum/Magnesium/Simeth (Maalox Max) 30 Ml Udc) 15 ml PO QID PRN PRN Reason: Stomach Issues Stop: 01/24/25 15:21 Albuterol (Albut/Ipratrop 3mg/0.5mg Neb 3 Ml Vial) 3 ml NEB Q6R PRN; Protocol PRN Reason: sob Stop: 01/24/25 15:22 Ascorbic Acid (Ascorbic Acid 500 Mg Tab) 500 mg PO DAILY [facility] Stop: 01/25/25 08:59 Last Admin: 12/28/24 10:20 Dose: Not Given Aspirin (Aspirin 81 Mg Ectab) 81 mg PO DAILY [facility] Stop: 01/24/25 13:44 Last Admin: 12/28/24 10:20 Dose: Not Given Atorvastatin Calcium (Atorvastatin 20 Mg Tab) 20 mg PO DAILY [facility] Stop: 01/24/25 13:44 Last Admin: 12/28/24 10:20 Dose: Not Given Docusate Sodium (Docusate Sodium 100 Mg Cap) 100 mg PO BID [facility] Stop: 01/24/25 20:59 Last Admin: 12/28/24 10:22 Dose: Not Given Doxepin HCl (Doxepin Hcl 50 Mg Capsule) 100 mg PO DAILY [facility] Stop: 01/25/25 08:59 Last Admin: 12/28/24 10:45 Dose: Not Given Fish Oil ([place]-3 (Purified Fish Oil) 1 Gm Cap) 1 cap PO DAILY [facility] Stop: 01/25/25 08:59 Last Admin: 12/28/24 10:22 Dose: Not Given Guaifenesin (Guaifenesin Sugar Free 100 Mg/5 Ml Udc) 200 mg PO Q4H PRN PRN Reason: Cough/Congestion Stop: 01/24/25 13:39 Heparin Sodium (Porcine) (Heparin Sod 5,000 Unit/0.5 Ml Vial) 5,000 units SQ Q8 [facility] Stop: 01/24/25 13:59 Last Admin: 12/28/24 13:03 Dose: Not Given Ceftriaxone Sodium (Rocephin) 1,000 mg in 50 mls @ 100 mls/hr IV Q24H [facility] Stop: 12/31/24 11:59 Last Infusion: 12/28/24 12:12 Dose: Infused Levothyroxine Sodium (Levothyroxine Sodium 88 Mcg Tablet) 88 mcg PO DAILYBB [facility] Stop: 01/25/25 06:29 Last Admin: 12/28/24 05:55 Dose: 88 mcg Lorazepam (Lorazepam 2 Mg/1 Ml Vial) 1 mg IV TID [facility] Stop: 01/27/25 13:59 Ondansetron HCl (Ondansetron Inj 2 Mg/Ml 2 Ml Vial) 4 mg IV Q6H PRN PRN Reason: Nausea Stop: 01/24/25 13:41 Pantoprazole Sodium (Pantoprazole 40 Mg Tab) 40 mg PO DAILY [facility] Stop: 01/25/25 08:59 Last Admin: 12/28/24 10:22 Dose: Not Given Potassium Chloride (Potassium Chloride 10 Meq Tabcr) 10 meq PO DAILY [facility] Stop: 01/25/25 08:59 Last Admin: 12/28/24 10:22 Dose: Not Given Psyllium Hydrophilic Mucilloid (Psyllium Husk 4gm Packet) 4 gm PO QAM [facility] Stop: 01/25/25 08:59 Last Admin: 12/28/24 10:14 Dose: Not Given Quetiapine Fumarate (Quetiapine Fumarate 50 Mg Tabcr) 100 mg PO QPM [facility] Stop: 01/24/25 20:59 Last Admin: 12/27/24 20:53 Dose: 100 mg Trazodone HCl (Trazodone Hcl 100 Mg Tab) 100 mg PO HS [facility] Stop: 01/24/25 20:59 Last Admin: 12/27/24 20:53 Dose: 100 mg Vitamin D (Cholecalciferol 125 Mcg (5,000 Units) Tab) 125 mcg PO DAILY [facility] Stop: 01/25/25 08:59 Last Admin: 12/28/24 10:21 Dose: Not Given
[2024-12-28] MEDS: LORazepam 0.5 MG TAB PO SCH (13:57)
[2024-12-29 03:54] LABS: Hematocrit (blood only) 33.4 % (37.0-47.0); Hemoglobin 11.4 g/dl (12.0-16.0); Mean Corpuscular Hemoglobin 30.5 pg (25.0-34.0); Mean Corpuscular Volume 89.3 fL (80.0-100.0); Platelet Count 208 K/uL (130-400); RDW Standard Deviation 48.1 fL (36.4-46.3); Red Blood Count 3.74 M/uL (4.20-5.40); White Blood Count 6.11 K/ul (4.8-10.8)
[2024-12-29 04:12] LABS: Anion Gap 8.0 (3-11); Blood Urea Nitrogen 15.0 mg/dl (6-23); Calcium 9.0 mg/dl (8.6-10.3); Carbon Dioxide 25.0 mmol/L (21-32); Chloride 106.0 mmol/L (98-107); Creatinine Clr Calc Pharmacy 61.3 ml/min; Glucose 91.0 mg/dl (70-99(Fasting)); Potassium 3.9 mmol/L (3.5-5.1); Sodium 139.0 mmol/L (136-145)
--- NOTE | 2024-12-29 08:18 | Hospitalist Progress Note ---
Date of Service December 29, 2024 Assessment & Plan (1) AMS (altered mental status): Plan: -h/o schizoaffective disorder -catatonia -pysch consult appreciated -pt responded well to ativan challenge -cont' 0.5mg PO TID -con't doxepin, quetiapine, trazodone - case management follow up for discharge to Adult home (2) UTI (urinary tract infection): Plan: -rocephin -f/u urine C&S (3) Schizophrenia: Plan: -noted -psych consult appreciated (4) COPD, moderate: Plan: -duonebs prn (5) HTN (hypertension): Plan: BP stable (6) Hyperlipidemia: Plan: -atorvastatin (7) Anxiety: Plan: con't home meds (8) Depression: Plan: con't home meds Plan Heparin SQ for DVT px Admission and Anticipated Discharge Date Admission Date: December 25, 2024 Subjective Pt did not take meds last night. Agreeing to ativan po this am. Feeling depressed. Review of Systems Review of Systems: CONST: Negative for fever, body aches and chills. HENT: Negative for neck pain/stiffness, headache, congestion, sore throat, swelling. EYES: Negative for discharge/pain or vision changes. RESP: Negative for cough/hemoptysis and shortness of breath. CV: Negative chest pain, difficulty breathing, palpitations. ABD: Negative pain, nausea, vomiting. : Negative increase frequency, dysuria, blood in urine or stool. MUSC: Negative for muscle aches, edema. SKIN: Negative rash, lesions/sores. NEURO: Negative headache, dizziness, weakness. Physical Exam Physical Exam: GENERAL APPEARANCE NAD, activity normal for age, well developed/ well nourished, no cyanosis, pallor, or diaphoresis. EYES lids/conjunctiva normal. EARS/NOSE/THROAT Mucous membranes moist, nares normal, lips/teeth normal uvula midline without oral pharyngeal erythema, exudate or swelling TMs normal bilaterally. No lymphangitis/lymphedema. HEAD/NECK normocephalic atraumatic, no facial trauma, neck is supple. RESPIRATORY respiratory effort normal, speaks in full sentences, no tripod position, no accessory muscle use. Lungs clear to auscultation without rhonchi, wheezes, rales CARDIAC Regular rate and rhythm, no edema. ABDOMINAL Soft, ND/NT. No evidence of fluid wave. No pulsatile masses on exam, rebound tenderness, Donald sign or pain over Mcburney's point. MUSCLES/EXTREMITIES No abnormal range of motion, no swelling. SKIN Warm, pink and dry. No rashes, dermatoses, petechiae or lesions. NEUROLOGICAL Speech is clear and appropriate. Normal level of consciousness. Gait and coordination are normal. 5/5 strength in all extremities. PSYCH Normal mood and affect. Judgement/competence is appropriate Results & Data Results & Data Vital Signs (Past 12 Hours) Vital Signs Temp Pulse Pulse Resp BP Pulse Ox O2 Del Method 12/29/24 08:07 Room Air 12/29/24 07:39 62 12/29/24 07:24 36.8 C 82 18 121/73 94 Room Air 12/29/24 03:14 36.6 C 72 16 99/62 L 95 Room Air 12/28/24 23:11 70 12/28/24 23:10 36.5 C 70 16 102/66 96 Room Air PG Care Time/CCT Total # of Minutes Spent Total Time Spent with Patient: Total time spent is greater than 50% in coordination of care (as documented) at patient's floor/unit and/or counseling patient: Coding Level of Care Code 43797 SUB INP/OBS CARE 2/35MIN Diagnoses AMS (altered mental status) R41.82 UTI (urinary tract infection) N39.0 Schizophrenia, unspecified type F20.9 Schizophrenia type: unspecified COPD, moderate J44.9 HTN (hypertension) I10 Hyperlipidemia E78.5 Anxiety F41.9 Depression F32.9 (3) Schizophrenia Schizophrenia type: unspecified Qualified Code(s): F20.9 - Schizophrenia, unspecified
--- NOTE | 2024-12-29 11:12 | Psychiatric Progress Note ---
Date of Service December 29, 2024 Impression / Recommendations Impression 64 y/o F h/o Schizoaffective disorder, COPD, HTN, HLD, who presents with AMS in the context of active UTI. Psychiatry consulted for evaluation. Concern for catatonia with mutism, stupor. Responded well to Lorazepam 2mg IV challenge with marked improvement in symptoms. Pt has h/o Schizoaffective disorder, historically has required structured living due to recurrent erratic behaviors, psychosis. She presents poor insight into her condition. Recommend to continue Lorazepam and will taper. Plan to optimize antipsychotic dose slowly. A: Pt uncooperative with clinical interview. Does not appear to be resurgence of catatonic symptoms and likely exhibiting behavioral problems. Efforts to redirect the patient were unsuccessful. No indication of overt psychosis or mood episode prior to onset of behavior. Overall, I spent a total of 30 minutes with this case including review of chart records, nursing report, review of lab work, direct evaluation of the patient at bedside, counseling the patient, discussion of the patient with the hospitalist provider, discussion with the psychiatric liaison during clinical rounds, and documentation in the electronic health record. (1) Catatonia: (2) Schizoaffective disorder: (3) UTI (urinary tract infection): (4) AMS (altered mental status): Plan 12/29/24: Decrease lorazepam to 0.5mg BID IV/PO, then tomorrow 0.5mg HS, then d/c. 12/28/24: Lorazepam 0.5mg QAM, 0.5mg Q2pm, 1mg HS IV/PO 12/27/24: Transition to oral Lorazepam 1mg TID 12/26/24: Lorazepam IV 1mg TID, can decrease dose if hypotensive, bradypneic, or causing excess sedation Continue home Trazodone 100mg HS, Doxepin 100mg HS, Quetiapine XR 100mg QPM Psychiatry consults to follow Interval History Identifying Information 64 y/o F h/o Schizoaffective disorder, COPD, HTN, HLD, who presents with AMS in the context of active UTI. Psychiatry consulted for evaluation. Chief Complaint Catatonia Subjective Subjective Pt is seen with eyes closed and would not converse. Seen with active facial expressions. Nursing reported pt was awake this morning, conversing, and took oral Lorazepam, however refused other medications selectively. Physical Exam Mental Examination Appearance: Disheveled Eye Contact: Maintains Eye Contact Motor Behavior: Unremarkable Speech: Normal Mood: Euthymic and Calm Affect: Congruent Thought Process: [place] and Goal Oriented Thought Content: Circumstantial Hallucinations: None Insight: Poor Judgement: Poor Vital Signs (Past 24 Hours) Last Vital Signs Temp 36.8 C 12/29/24 07:24 Pulse 62 12/29/24 07:39 Resp 18 12/29/24 07:24 BP 121/73 12/29/24 07:24 Pulse Ox 94 12/29/24 07:24 O2 Del Method Room Air 12/29/24 08:07 Results & Data ([facility]) Laboratory Results Laboratory Results - last 24 hr 12/29/24 03:15 WBC 6.11 RBC 3.74 L Hgb 11.4 L Hct 33.4 L MCV 89.3 MCH 30.5 MCHC 34.1 RDW Std Deviation 48.1 H RDW Coeff of Samreen 14.6 H Plt Count 208 MPV 11.2 Sodium 139 Potassium 3.9 Chloride 106 Carbon Dioxide 25 Anion Gap 8 BUN 15 Creatinine 0.83 Est Cr Clr Drug Dosing 61.3 eGFR 79.16 BUN/Creatinine Ratio 18.1 Glucose 91 Calcium 9.0 Current Inpatient Medications Current Inpatient Medications: Current Inpatient Medications Acetaminophen (Acetaminophen 325 Mg Tab) 650 mg PO Q4H PRN PRN Reason: PAIN OR FEVER Stop: 01/24/25 13:39 Last Admin: 12/26/24 17:39 Dose: 650 mg Al Hydrox/Mg Hydrox/Simethicone (Aluminum/Magnesium/Simeth (Maalox Max) 30 Ml Udc) 15 ml PO QID PRN PRN Reason: Stomach Issues Stop: 01/24/25 15:21 Albuterol (Albut/Ipratrop 3mg/0.5mg Neb 3 Ml Vial) 3 ml NEB Q6R PRN; Protocol PRN Reason: sob Stop: 01/24/25 15:22 Ascorbic Acid (Ascorbic Acid 500 Mg Tab) 500 mg PO DAILY DUNIA Stop: 01/25/25 08:59 Last Admin: 12/29/24 08:55 Dose: Not Given Aspirin (Aspirin 81 Mg Ectab) 81 mg PO DAILY DUNIA Stop: 01/24/25 13:44 Last Admin: 12/29/24 08:55 Dose: Not Given Atorvastatin Calcium (Atorvastatin 20 Mg Tab) 20 mg PO DAILY DUNIA Stop: 01/24/25 13:44 Last Admin: 12/29/24 08:55 Dose: Not Given Docusate Sodium (Docusate Sodium 100 Mg Cap) 100 mg PO BID DUNIA Stop: 01/24/25 20:59 Last Admin: 12/29/24 08:55 Dose: Not Given Doxepin HCl (Doxepin Hcl 50 Mg Capsule) 100 mg PO DAILY DUNIA Stop: 01/25/25 08:59 Last Admin: 12/29/24 08:55 Dose: Not Given Fish Oil ([place]-3 (Purified Fish Oil) 1 Gm Cap) 1 cap PO DAILY DUNIA Stop: 01/25/25 08:59 Last Admin: 12/29/24 08:55 Dose: Not Given Guaifenesin (Guaifenesin Sugar Free 100 Mg/5 Ml Udc) 200 mg PO Q4H PRN PRN Reason: Cough/Congestion Stop: 01/24/25 13:39 Heparin Sodium (Porcine) (Heparin Sod 5,000 Unit/0.5 Ml Vial) 5,000 units SQ Q8 DUNIA Stop: 01/24/25 13:59 Last Admin: 12/29/24 05:58 Dose: Not Given Ceftriaxone Sodium (Rocephin) 1,000 mg in 50 mls @ 100 mls/hr IV Q24H DUNIA Stop: 12/31/24 11:59 Last Infusion: 12/28/24 12:12 Dose: Infused Levothyroxine Sodium (Levothyroxine Sodium 88 Mcg Tablet) 88 mcg PO DAILYBB DUNIA Stop: 01/25/25 06:29 Last Admin: 12/29/24 05:58 Dose: Not Given Lorazepam (Lorazepam 0.5 Mg Tab) 0.5 mg PO TID DUNIA Stop: 01/27/25 13:59 Last Admin: 12/29/24 08:03 Dose: 0.5 mg Ondansetron HCl (Ondansetron Inj 2 Mg/Ml 2 Ml Vial) 4 mg IV Q6H PRN PRN Reason: Nausea Stop: 01/24/25 13:41 Pantoprazole Sodium (Pantoprazole 40 Mg Tab) 40 mg PO DAILY DUNIA Stop: 01/25/25 08:59 Last Admin: 12/29/24 08:56 Dose: Not Given Potassium Chloride (Potassium Chloride 10 Meq Tabcr) 10 meq PO DAILY DUNIA Stop: 01/25/25 08:59 Last Admin: 12/29/24 08:56 Dose: Not Given Psyllium Hydrophilic Mucilloid (Psyllium Husk 4gm Packet) 4 gm PO QAM DUNIA Stop: 01/25/25 08:59 Last Admin: 12/29/24 08:56 Dose: Not Given Quetiapine Fumarate (Quetiapine Fumarate 50 Mg Tabcr) 100 mg PO QPM DUNIA Stop: 01/24/25 20:59 Last Admin: 12/28/24 20:09 Dose: Not Given Trazodone HCl (Trazodone Hcl 100 Mg Tab) 100 mg PO HS DUNIA Stop: 01/24/25 20:59 Last Admin: 12/28/24 20:09 Dose: Not Given Vitamin D (Cholecalciferol 125 Mcg (5,000 Units) Tab) 125 mcg PO DAILY DUNIA Stop: 01/25/25 08:59 Last Admin: 12/29/24 08:55 Dose: Not Given
[2024-12-30 06:41] LABS: Hematocrit (blood only) 35.8 % (37.0-47.0); Hemoglobin 12.4 g/dl (12.0-16.0); Mean Corpuscular Hemoglobin 30.3 pg (25.0-34.0); Mean Corpuscular Volume 87.5 fL (80.0-100.0); Platelet Count 216 K/uL (130-400); RDW Standard Deviation 45.8 fL (36.4-46.3); Red Blood Count 4.09 M/uL (4.20-5.40); White Blood Count 6.34 K/ul (4.8-10.8)
[2024-12-30 07:12] LABS: Anion Gap 8.0 (3-11); Blood Urea Nitrogen 18.0 mg/dl (6-23); Calcium 9.2 mg/dl (8.6-10.3); Carbon Dioxide 25.0 mmol/L (21-32); Chloride 105.0 mmol/L (98-107); Creatinine Clr Calc Pharmacy 67.8 ml/min; Glucose 92.0 mg/dl (70-99(Fasting)); Potassium 3.6 mmol/L (3.5-5.1); Sodium 138.0 mmol/L (136-145)
[2024-12-30 08:07] LABS: MDA negative; MDEA negative; MDMA (Ecstasy) Urine, Confirm negative
--- NOTE | 2024-12-30 09:11 | Hospitalist Progress Note ---
Date of Service December 30, 2024 Assessment & Plan (1) AMS (altered mental status): Plan: -h/o schizoaffective disorder -catatonia -pysch consult appreciated -pt responded well to ativan challenge -ativan changed to 0.5mg QHS as per psych -con't doxepin, quetiapine, trazodone - case management follow up for discharge to Adult home vs inpatient psych (2) UTI (urinary tract infection): Plan: -rocephin -f/u urine C&S (3) Schizophrenia: Plan: -noted -psych consult appreciated (4) COPD, moderate: Plan: -duonebs prn (5) HTN (hypertension): Plan: BP stable (6) Hyperlipidemia: Plan: -atorvastatin (7) Anxiety: Plan: con't home meds (8) Depression: Plan: con't home meds Plan Heparin SQ for DVT px Admission and Anticipated Discharge Date Admission Date: December 25, 2024 Subjective Pt remains unresponsive this am, refusing to awaken. Review of Systems Review of Systems: CONST: Negative for fever, body aches and chills. HENT: Negative for neck pain/stiffness, headache, congestion, sore throat, swelling. EYES: Negative for discharge/pain or vision changes. RESP: Negative for cough/hemoptysis and shortness of breath. CV: Negative chest pain, difficulty breathing, palpitations. ABD: Negative pain, nausea, vomiting. : Negative increase frequency, dysuria, blood in urine or stool. MUSC: Negative for muscle aches, edema. SKIN: Negative rash, lesions/sores. NEURO: Negative headache, dizziness, weakness. Physical Exam Physical Exam: GENERAL APPEARANCE NAD, activity normal for age, well developed/ well nourished, no cyanosis, pallor, or diaphoresis. EYES lids/conjunctiva normal. EARS/NOSE/THROAT Mucous membranes moist, nares normal, lips/teeth normal uvula midline without oral pharyngeal erythema, exudate or swelling TMs normal bilaterally. No lymphangitis/lymphedema. HEAD/NECK normocephalic atraumatic, no facial trauma, neck is supple. RESPIRATORY respiratory effort normal, speaks in full sentences, no tripod position, no accessory muscle use. Lungs clear to auscultation without rhonchi, wheezes, rales CARDIAC Regular rate and rhythm, no edema. ABDOMINAL Soft, ND/NT. No evidence of fluid wave. No pulsatile masses on exam, rebound tenderness, Donald sign or pain over Mcburney's point. MUSCLES/EXTREMITIES No abnormal range of motion, no swelling. SKIN Warm, pink and dry. No rashes, dermatoses, petechiae or lesions. NEUROLOGICAL Speech is clear and appropriate. Normal level of consciousness. Gait and coordination are normal. 5/5 strength in all extremities. PSYCH Normal mood and affect. Judgement/competence is appropriate Results & Data Results & Data Vital Signs (Past 12 Hours) Vital Signs Temp Pulse Pulse Resp BP Pulse Ox O2 Del Method 12/30/24 08:19 37.1 C 77 17 122/65 97 Room Air 12/30/24 05:41 74 12/30/24 03:15 36.4 C L 87 18 99/66 L 93 Room Air 12/29/24 23:41 36.3 C L 68 18 91/64 L 96 Room Air 12/29/24 21:44 71 PG Care Time/CCT Total # of Minutes Spent Total Time Spent with Patient: Total time spent is greater than 50% in coordination of care (as documented) at patient's floor/unit and/or counseling patient: Coding Level of Care Code 73766 SUB INP/OBS CARE 2/35MIN Diagnoses AMS (altered mental status) R41.82 UTI (urinary tract infection) N39.0 Schizophrenia, unspecified type F20.9 Schizophrenia type: unspecified COPD, moderate J44.9 HTN (hypertension) I10 Hyperlipidemia E78.5 Anxiety F41.9 Depression F32.9 (3) Schizophrenia Schizophrenia type: unspecified Qualified Code(s): F20.9 - Schizophrenia, unspecified
[2024-12-30] MEDS: LORazepam 0.5 MG TAB PO SCH (20:07)
--- NOTE | 2024-12-31 08:27 | Hospitalist Progress Note ---
Date of Service December 31, 2024 Assessment & Plan (1) AMS (altered mental status): Plan: -h/o schizoaffective disorder -catatonia -pysch consult appreciated -pt responded well to ativan challenge -ativan d/c'd as per psych, no need for inpatient psych placement -con't doxepin, quetiapine, trazodone - case management follow up for discharge to Adult home (2) UTI (urinary tract infection): Plan: -rocephin -f/u urine C&S (3) Schizophrenia: Plan: -noted -psych consult appreciated (4) COPD, moderate: Plan: -duonebs prn (5) HTN (hypertension): Plan: BP stable (6) Hyperlipidemia: Plan: -atorvastatin (7) Anxiety: Plan: con't home meds (8) Depression: Plan: con't home meds Plan Heparin SQ for DVT px Admission and Anticipated Discharge Date Admission Date: December 25, 2024 Subjective No events overnight. Pt awake this am, appears at [facility]. Review of Systems Review of Systems: CONST: Negative for fever, body aches and chills. HENT: Negative for neck pain/stiffness, headache, congestion, sore throat, swelling. EYES: Negative for discharge/pain or vision changes. RESP: Negative for cough/hemoptysis and shortness of breath. CV: Negative chest pain, difficulty breathing, palpitations. ABD: Negative pain, nausea, vomiting. : Negative increase frequency, dysuria, blood in urine or stool. MUSC: Negative for muscle aches, edema. SKIN: Negative rash, lesions/sores. NEURO: Negative headache, dizziness, weakness. Physical Exam Physical Exam: GENERAL APPEARANCE NAD, activity normal for age, well developed/ well nourished, no cyanosis, pallor, or diaphoresis. EYES lids/conjunctiva normal. EARS/NOSE/THROAT Mucous membranes moist, nares normal, lips/teeth normal uvula midline without oral pharyngeal erythema, exudate or swelling TMs normal bilaterally. No lymphangitis/lymphedema. HEAD/NECK normocephalic atraumatic, no facial trauma, neck is supple. RESPIRATORY respiratory effort normal, speaks in full sentences, no tripod position, no accessory muscle use. Lungs clear to auscultation without rhonchi, wheezes, rales CARDIAC Regular rate and rhythm, no edema. ABDOMINAL Soft, ND/NT. No evidence of fluid wave. No pulsatile masses on exam, rebound tenderness, Donald sign or pain over Mcburney's point. MUSCLES/EXTREMITIES No abnormal range of motion, no swelling. SKIN Warm, pink and dry. No rashes, dermatoses, petechiae or lesions. NEUROLOGICAL Speech is clear and appropriate. Normal level of consciousness. Gait and coordination are normal. 5/5 strength in all extremities. PSYCH Normal mood and affect. Judgement/competence is appropriate Results & Data Results & Data Vital Signs (Past 12 Hours) Vital Signs Temp Pulse Pulse Resp BP Pulse Ox O2 Del Method 12/31/24 07:59 36.5 C 79 17 104/68 95 Room Air 12/31/24 04:00 36.7 C 86 20 105/71 94 Room Air 12/30/24 23:45 36.6 C 97 H 18 106/69 95 Room Air 12/30/24 23:05 97 H 12/30/24 20:43 Room Air PG Care Time/CCT Total # of Minutes Spent Total Time Spent with Patient: Total time spent is greater than 50% in coordination of care (as documented) at patient's floor/unit and/or counseling patient: Coding Level of Care Code 58352 SUB INP/OBS CARE 2/35MIN Diagnoses AMS (altered mental status) R41.82 UTI (urinary tract infection) N39.0 Schizophrenia, unspecified type F20.9 Schizophrenia type: unspecified COPD, moderate J44.9 HTN (hypertension) I10 Hyperlipidemia E78.5 Anxiety F41.9 Depression F32.9 (3) Schizophrenia Schizophrenia type: unspecified Qualified Code(s): F20.9 - Schizophrenia, unspecified
[2024-12-31] MEDS: SODIUM CHLORIDE 0.9% 1,000 ML IV SCH (18:17)
--- NOTE | 2025-01-01 09:44 | Hospitalist Progress Note ---
Date of Service January 01, 2025 Assessment & Plan (1) AMS (altered mental status): Plan: -h/o schizoaffective disorder -catatonia -pysch consult appreciated -pt responded well to ativan challenge -ativan d/c'd as per psych, no need for inpatient psych placement -con't doxepin, quetiapine, trazodone -pt still having episodes of catatonia, will restart ativan 1mg IV - case management follow up for discharge to Adult home (2) UTI (urinary tract infection): Plan: -rocephin -f/u urine C&S -resolved abx d/c'd (3) Schizophrenia: Plan: -noted -psych consult appreciated (4) COPD, moderate: Plan: -duonebs prn (5) HTN (hypertension): Plan: BP stable (6) Hyperlipidemia: Plan: -atorvastatin (7) Anxiety: Plan: con't home meds (8) Depression: Plan: con't home meds Plan Heparin SQ for DVT px Admission and Anticipated Discharge Date Admission Date: December 25, 2024 Subjective Pt unresponsive this am, appears in episode of catatonia again. Review of Systems Review of Systems: CONST: Negative for fever, body aches and chills. HENT: Negative for neck pain/stiffness, headache, congestion, sore throat, swelling. EYES: Negative for discharge/pain or vision changes. RESP: Negative for cough/hemoptysis and shortness of breath. CV: Negative chest pain, difficulty breathing, palpitations. ABD: Negative pain, nausea, vomiting. : Negative increase frequency, dysuria, blood in urine or stool. MUSC: Negative for muscle aches, edema. SKIN: Negative rash, lesions/sores. NEURO: Negative headache, dizziness, weakness. Physical Exam Physical Exam: GENERAL APPEARANCE NAD, activity normal for age, well developed/ well nourished, no cyanosis, pallor, or diaphoresis. EYES lids/conjunctiva normal. EARS/NOSE/THROAT Mucous membranes moist, nares normal, lips/teeth normal uvula midline without oral pharyngeal erythema, exudate or swelling TMs normal bilaterally. No lymphangitis/lymphedema. HEAD/NECK normocephalic atraumatic, no facial trauma, neck is supple. RESPIRATORY respiratory effort normal, speaks in full sentences, no tripod position, no accessory muscle use. Lungs clear to auscultation without rhonchi, wheezes, rales CARDIAC Regular rate and rhythm, no edema. ABDOMINAL Soft, ND/NT. No evidence of fluid wave. No pulsatile masses on exam, rebound tenderness, Donald sign or pain over Mcburney's point. MUSCLES/EXTREMITIES No abnormal range of motion, no swelling. SKIN Warm, pink and dry. No rashes, dermatoses, petechiae or lesions. NEUROLOGICAL Speech is clear and appropriate. Normal level of consciousness. Gait and coordination are normal. 5/5 strength in all extremities. PSYCH Normal mood and affect. Judgement/competence is appropriate Results & Data Results & Data Vital Signs (Past 12 Hours) Vital Signs Temp Pulse Pulse Resp BP BP Pulse Ox 01/01/25 08:39 36.7 C 75 16 92/62 L 96 01/01/25 07:13 71 01/01/25 02:36 36 C L 85 14 96/61 L 92 12/31/24 23:38 37.1 C 73 14 107/65 95 O2 Del Method 01/01/25 08:39 Room Air 01/01/25 07:13 01/01/25 02:36 Room Air 12/31/24 23:38 Room Air PG Care Time/CCT Total # of Minutes Spent Total Time Spent with Patient: Total time spent is greater than 50% in coordination of care (as documented) at patient's floor/unit and/or counseling patient: Coding Level of Care Code 02266 SUB INP/OBS CARE 2/35MIN Diagnoses AMS (altered mental status) R41.82 UTI (urinary tract infection) N39.0 Schizophrenia, unspecified type F20.9 Schizophrenia type: unspecified COPD, moderate J44.9 HTN (hypertension) I10 Hyperlipidemia E78.5 Anxiety F41.9 Depression F32.9 (3) Schizophrenia Schizophrenia type: unspecified Qualified Code(s): F20.9 - Schizophrenia, unspecified
--- NOTE | 2025-01-02 10:02 | Hospitalist Progress Note ---
Date of Service January 02, 2025 Assessment & Plan (1) AMS (altered mental status): Plan: -h/o schizoaffective disorder -catatonia -pysch consult appreciated -pt responded well to ativan challenge -ativan d/c'd as per psych, no need for inpatient psych placement -con't doxepin, quetiapine, trazodone -pt still having episodes of catatonia, will restart ativan 1mg IV - case management follow up for discharge to Adult home -capacity determination and psych follow up pending -pt does not appear to have full insight into her medical condition (2) UTI (urinary tract infection): Plan: -rocephin -f/u urine C&S -resolved abx d/c'd (3) Schizophrenia: Plan: -noted -psych consult appreciated (4) COPD, moderate: Plan: -duonebs prn (5) HTN (hypertension): Plan: BP stable (6) Hyperlipidemia: Plan: -atorvastatin (7) Anxiety: Plan: con't home meds (8) Depression: Plan: con't home meds Plan Heparin SQ for DVT px Admission and Anticipated Discharge Date Admission Date: December 25, 2024 Subjective Pt awake and responsive this am. When asked patient is agreeable to adult home placement. Review of Systems Review of Systems: CONST: Negative for fever, body aches and chills. HENT: Negative for neck pain/stiffness, headache, congestion, sore throat, swelling. EYES: Negative for discharge/pain or vision changes. RESP: Negative for cough/hemoptysis and shortness of breath. CV: Negative chest pain, difficulty breathing, palpitations. ABD: Negative pain, nausea, vomiting. : Negative increase frequency, dysuria, blood in urine or stool. MUSC: Negative for muscle aches, edema. SKIN: Negative rash, lesions/sores. NEURO: Negative headache, dizziness, weakness. Physical Exam Physical Exam: GENERAL APPEARANCE NAD, activity normal for age, well developed/ well nourished, no cyanosis, pallor, or diaphoresis. EYES lids/conjunctiva normal. EARS/NOSE/THROAT Mucous membranes moist, nares normal, lips/teeth normal uvula midline without oral pharyngeal erythema, exudate or swelling TMs normal bilaterally. No lymphangitis/lymphedema. HEAD/NECK normocephalic atraumatic, no facial trauma, neck is supple. RESPIRATORY respiratory effort normal, speaks in full sentences, no tripod position, no accessory muscle use. Lungs clear to auscultation without rhonchi, wheezes, rales CARDIAC Regular rate and rhythm, no edema. ABDOMINAL Soft, ND/NT. No evidence of fluid wave. No pulsatile masses on exam, rebound tenderness, Donald sign or pain over Mcburney's point. MUSCLES/EXTREMITIES No abnormal range of motion, no swelling. SKIN Warm, pink and dry. No rashes, dermatoses, petechiae or lesions. NEUROLOGICAL Speech is clear and appropriate. Normal level of consciousness. Gait and coordination are normal. 5/5 strength in all extremities. PSYCH Normal mood and affect. Judgement/competence is appropriate Results & Data Results & Data Vital Signs (Past 12 Hours) Vital Signs Temp Pulse Pulse Resp BP Pulse Ox O2 Del Method 01/02/25 08:11 36.6 C 66 16 120/77 97 Room Air 01/02/25 07:12 64 01/02/25 03:22 36.6 C 68 16 100/57 L 97 Room Air 01/01/25 23:36 36.3 C L 67 14 94/62 L 95 Room Air 01/01/25 23:00 71 PG Care Time/CCT Total # of Minutes Spent Total Time Spent with Patient: Total time spent is greater than 50% in coordination of care (as documented) at patient's floor/unit and/or counseling patient: Coding Level of Care Code 38219 SUB INP/OBS CARE 2/35MIN Diagnoses AMS (altered mental status) R41.82 UTI (urinary tract infection) N39.0 Schizophrenia, unspecified type F20.9 Schizophrenia type: unspecified COPD, moderate J44.9 HTN (hypertension) I10 Hyperlipidemia E78.5 Anxiety F41.9 Depression F32.9 (3) Schizophrenia Schizophrenia type: unspecified Qualified Code(s): F20.9 - Schizophrenia, unspecified
--- NOTE | 2025-01-02 14:14 | Psychiatric Progress Note ---
Date of Service January 02, 2025 Impression / Recommendations Impression 64 y/o F h/o Schizoaffective disorder, COPD, HTN, HLD, who presents with AMS in the context of active UTI. Psychiatry consulted for evaluation. Concern for catatonia with mutism, stupor. Responded well to Lorazepam 2mg IV challenge with marked improvement in symptoms. Pt has h/o Schizoaffective disorder, historically has required structured living due to recurrent erratic behaviors, psychosis. She presents poor insight into her condition. Recommend to continue Lorazepam and will taper. Plan to optimize antipsychotic dose slowly. A: Low suspicion for return of catatonic symptoms. Current lorazepam may be sed ating to patient. Slightly hypotensive at times. Now med adherent. Has been sleeping and eating well. Pt has history of behavioral issues and concern for refusing care voluntarily. Pt may have housing concerns. Would trial d/c of lorazepam and evaluate. Overall, I spent a total of 40 minutes with this case including review of chart records, nursing report, review of lab work, direct evaluation of the patient at bedside, counseling the patient, discussion of the patient with the hospitalist provider, discussion with the psychiatric liaison during clinical rounds, and documentation in the electronic health record. (1) Catatonia: (2) Schizoaffective disorder: (3) UTI (urinary tract infection): (4) AMS (altered mental status): Plan 01/02/25: Trial discontinuation of lorazepam and psychiatry to assess if symptoms persist 12/29/24: Decrease lorazepam to 0.5mg BID IV/PO, then tomorrow 0.5mg HS, then d/c. 12/28/24: Lorazepam 0.5mg QAM, 0.5mg Q2pm, 1mg HS IV/PO 12/27/24: Transition to oral Lorazepam 1mg TID 12/26/24: Lorazepam IV 1mg TID, can decrease dose if hypotensive, bradypneic, or causing excess sedation Continue home Trazodone 100mg HS, Doxepin 100mg HS, Quetiapine XR 100mg QPM Psychiatry consults to follow Interval History Identifying Information 64 y/o F h/o Schizoaffective disorder, COPD, HTN, HLD, who presents with AMS in the context of active UTI. Psychiatry consulted for evaluation. Chief Complaint Catatonia Subjective Subjective Pt slept well overnight. Has been ambulating and going to the bathroom. On interview reports feeling "tired". Reports upcoming PT/OT evaluation. Says her knees and ribs hurt from a few weeks ago. Eating well. Does not recall feelings of being paralyzed. Denies SI. Denies further concerns. Physical Exam Mental Examination Appearance: Disheveled Eye Contact: Maintains Eye Contact Motor Behavior: Unremarkable Speech: Normal Mood: Euthymic and Calm Affect: Congruent Thought Process: [place] and Goal Oriented Thought Content: Circumstantial Hallucinations: None Insight: Poor Judgement: Poor Vital Signs (Past 24 Hours) Last Vital Signs Temp 36.6 C 01/02/25 11:16 Pulse 77 01/02/25 11:16 Resp 16 01/02/25 11:16 BP 107/67 01/02/25 11:16 Pulse Ox 94 01/02/25 11:16 O2 Del Method Room Air 01/02/25 11:16 Results & Data ([facility]) Current Inpatient Medications Current Inpatient Medications: Current Inpatient Medications Acetaminophen (Acetaminophen 325 Mg Tab) 650 mg PO Q4H PRN PRN Reason: PAIN OR FEVER Stop: 01/24/25 13:39 Last Admin: 12/26/24 17:39 Dose: 650 mg Al Hydrox/Mg Hydrox/Simethicone (Aluminum/Magnesium/Simeth (Maalox Max) 30 Ml Udc) 15 ml PO QID PRN PRN Reason: Stomach Issues Stop: 01/24/25 15:21 Albuterol (Albut/Ipratrop 3mg/0.5mg Neb 3 Ml Vial) 3 ml NEB Q6R PRN; Protocol PRN Reason: sob Stop: 01/24/25 15:22 Ascorbic Acid (Ascorbic Acid 500 Mg Tab) 500 mg PO DAILY [facility] Stop: 01/25/25 08:59 Last Admin: 01/02/25 07:57 Dose: 500 mg Aspirin (Aspirin 81 Mg Ectab) 81 mg PO DAILY [facility] Stop: 01/24/25 13:44 Last Admin: 01/02/25 07:57 Dose: 81 mg Atorvastatin Calcium (Atorvastatin 20 Mg Tab) 20 mg PO DAILY [facility] Stop: 01/24/25 13:44 Last Admin: 01/02/25 07:57 Dose: 20 mg Docusate Sodium (Docusate Sodium 100 Mg Cap) 100 mg PO BID [facility] Stop: 01/24/25 20:59 Last Admin: 01/02/25 07:56 Dose: 100 mg Doxepin HCl (Doxepin Hcl 50 Mg Capsule) 100 mg PO DAILY [facility] Stop: 01/25/25 08:59 Last Admin: 01/02/25 07:56 Dose: 100 mg Fish Oil ([place]-3 (Purified Fish Oil) 1 Gm Cap) 1 cap PO DAILY [facility] Stop: 01/25/25 08:59 Last Admin: 01/02/25 07:57 Dose: 1 cap Guaifenesin (Guaifenesin Sugar Free 100 Mg/5 Ml Udc) 200 mg PO Q4H PRN PRN Reason: Cough/Congestion Stop: 01/24/25 13:39 Heparin Sodium (Porcine) (Heparin Sod 5,000 Unit/0.5 Ml Vial) 5,000 units SQ Q8 [facility] Stop: 01/24/25 13:59 Last Admin: 01/02/25 13:14 Dose: 5,000 units Sodium Chloride (Nss) 1,000 mls @ 80 mls/hr IV .[id number] [facility] Stop: 01/03/25 17:59 Last Admin: 01/02/25 06:03 Dose: 80 mls/hr Levothyroxine Sodium (Levothyroxine Sodium 88 Mcg Tablet) 88 mcg PO DAILYBB [facility] Stop: 01/25/25 06:29 Last Admin: 01/02/25 06:08 Dose: 88 mcg Lorazepam (Lorazepam 2 Mg/1 Ml Vial) 1 mg IV TID [facility] Stop: 01/31/25 13:59 Last Admin: 01/02/25 13:14 Dose: 1 mg Ondansetron HCl (Ondansetron Inj 2 Mg/Ml 2 Ml Vial) 4 mg IV Q6H PRN PRN Reason: Nausea Stop: 01/24/25 13:41 Pantoprazole Sodium (Pantoprazole 40 Mg Tab) 40 mg PO DAILY [facility] Stop: 01/25/25 08:59 Last Admin: 01/02/25 07:56 Dose: 40 mg Potassium Chloride (Potassium Chloride 10 Meq Tabcr) 10 meq PO DAILY [facility] Stop: 01/25/25 08:59 Last Admin: 01/02/25 07:56 Dose: 10 meq Psyllium Hydrophilic Mucilloid (Psyllium Husk 4gm Packet) 4 gm PO QAM [facility] Stop: 01/25/25 08:59 Last Admin: 01/02/25 08:00 Dose: Not Given Quetiapine Fumarate (Quetiapine Fumarate 50 Mg Tabcr) 100 mg PO QPM [facility] Stop: 01/24/25 20:59 Last Admin: 01/01/25 20:56 Dose: 100 mg Trazodone HCl (Trazodone Hcl 100 Mg Tab) 100 mg PO HS [facility] Stop: 01/24/25 20:59 Last Admin: 01/01/25 20:56 Dose: 100 mg Vitamin D (Cholecalciferol 125 Mcg (5,000 Units) Tab) 125 mcg PO DAILY [facility] Stop: 01/25/25 08:59 Last Admin: 01/02/25 07:57 Dose: 125 mcg
--- NOTE | 2025-01-03 10:40 | Hospitalist Progress Note ---
Date of Service January 03, 2025 Assessment & Plan (1) AMS (altered mental status): Plan: -h/o schizoaffective disorder -catatonia -pysch consult appreciated -pt responded well to ativan challenge -ativan d/c'd as per psych, no need for inpatient psych placement -con't doxepin, quetiapine, trazodone -ativan d/c test as per psych -pt catatonic overnight -likely behavioral (2) UTI (urinary tract infection): Plan: -rocephin -f/u urine C&S -resolved abx d/c'd (3) Schizophrenia: Plan: -noted -psych consult appreciated (4) COPD, moderate: Plan: -duonebs prn (5) HTN (hypertension): Plan: BP stable (6) Hyperlipidemia: Plan: -atorvastatin (7) Anxiety: Plan: con't home meds (8) Depression: Plan: con't home meds Plan Heparin SQ for DVT px Admission and Anticipated Discharge Date Admission Date: December 25, 2024 Subjective Pt returned to catatonic state, not responding. Review of Systems Review of Systems: CONST: Negative for fever, body aches and chills. HENT: Negative for neck pain/stiffness, headache, congestion, sore throat, swelling. EYES: Negative for discharge/pain or vision changes. RESP: Negative for cough/hemoptysis and shortness of breath. CV: Negative chest pain, difficulty breathing, palpitations. ABD: Negative pain, nausea, vomiting. : Negative increase frequency, dysuria, blood in urine or stool. MUSC: Negative for muscle aches, edema. SKIN: Negative rash, lesions/sores. NEURO: Negative headache, dizziness, weakness. Physical Exam Physical Exam: GENERAL APPEARANCE NAD, activity normal for age, well developed/ well nourished, no cyanosis, pallor, or diaphoresis. EYES lids/conjunctiva normal. EARS/NOSE/THROAT Mucous membranes moist, nares normal, lips/teeth normal uvula midline without oral pharyngeal erythema, exudate or swelling TMs normal bilaterally. No lymphangitis/lymphedema. HEAD/NECK normocephalic atraumatic, no facial trauma, neck is supple. RESPIRATORY respiratory effort normal, speaks in full sentences, no tripod position, no accessory muscle use. Lungs clear to auscultation without rhonchi, wheezes, rales CARDIAC Regular rate and rhythm, no edema. ABDOMINAL Soft, ND/NT. No evidence of fluid wave. No pulsatile masses on exam, rebound tenderness, Donald sign or pain over Mcburney's point. MUSCLES/EXTREMITIES No abnormal range of motion, no swelling. SKIN Warm, pink and dry. No rashes, dermatoses, petechiae or lesions. NEUROLOGICAL Speech is clear and appropriate. Normal level of consciousness. Gait and coordination are normal. 5/5 strength in all extremities. PSYCH Normal mood and affect. Judgement/competence is appropriate Results & Data Results & Data Vital Signs (Past 12 Hours) Vital Signs Temp Pulse Resp BP BP Pulse Ox O2 Del Method 01/03/25 08:00 36.7 C 70 20 106/69 97 Room Air 01/03/25 02:53 36.8 C 66 18 116/75 97 Room Air 01/02/25 22:53 36.3 C L 97 H 14 102/66 98 Room Air PG Care Time/CCT Total # of Minutes Spent Total Time Spent with Patient: Total time spent is greater than 50% in coordination of care (as documented) at patient's floor/unit and/or counseling patient: Coding Level of Care Code 62195 SUB INP/OBS CARE 2/35MIN Diagnoses AMS (altered mental status) R41.82 UTI (urinary tract infection) N39.0 Schizophrenia, unspecified type F20.9 Schizophrenia type: unspecified COPD, moderate J44.9 HTN (hypertension) I10 Hyperlipidemia E78.5 Anxiety F41.9 Depression F32.9 (3) Schizophrenia Schizophrenia type: unspecified Qualified Code(s): F20.9 - Schizophrenia, unspecified
--- NOTE | 2025-01-03 14:49 | Psychiatric Progress Note ---
Date of Service January 03, 2025 Impression / Recommendations Impression 64 y/o F h/o Schizoaffective disorder, COPD, HTN, HLD, who presents with AMS in the context of active UTI. Psychiatry consulted for evaluation. Concern for catatonia with mutism, stupor. Responded well to Lorazepam 2mg IV challenge with marked improvement in symptoms. Pt has h/o Schizoaffective disorder, historically has required structured living due to recurrent erratic behaviors, psychosis. She presents poor insight into her condition. Recommend to continue Lorazepam and will taper. Plan to optimize antipsychotic dose slowly. A: Clinical picture remains murky. Increased concern for catatonia today given Jo Sourav score of 14 with waxy flexibility and mutism on exam. Hard to tell if some of her refusal is behavioral vs thought blocking but no evidence for responding to internal stimuli nor acute psychosis at this point. Has been eating which also points somewhat away from catatonia. Given concern for catatonia recommend re-trial of ativan with goal of consistent IV administration over multiple days to better rule out catatonia possibility. Overall, I spent a total of 55 minutes with this case including review of chart records, nursing report, review of lab work, direct evaluation of the patient at bedside, discussion of the patient with the nurse and hospitalist provider, discussion with the psychiatric liaison during clinical rounds, and documentation in the electronic health record. (1) Catatonia: (2) Schizoaffective disorder: (3) UTI (urinary tract infection): (4) AMS (altered mental status): Plan 01/03/2025: -Discontinue Seroquel and trazodone to lessen risks for hypotension -Start ativan 0.5mg IV TID or 1mg IV TID with goal of consistent administration. 01/02/25: Trial discontinuation of lorazepam and psychiatry to assess if symptoms persist 12/29/24: Decrease lorazepam to 0.5mg BID IV/PO, then tomorrow 0.5mg HS, then d/c. 12/28/24: Lorazepam 0.5mg QAM, 0.5mg Q2pm, 1mg HS IV/PO 12/27/24: Transition to oral Lorazepam 1mg TID 12/26/24: Lorazepam IV 1mg TID, can decrease dose if hypotensive, bradypneic, or causing excess sedation Continue home Trazodone 100mg HS, Doxepin 100mg HS, Quetiapine XR 100mg QPM Psychiatry consults to follow Interval History Identifying Information 64 y/o F h/o Schizoaffective disorder, COPD, HTN, HLD, who presents with AMS in the context of active UTI. Psychiatry consulted for evaluation. Chief Complaint mute Subjective Subjective Patient was seen & assessed and interval progress reviewed. Per RN voclaizes at times, especially with frustration and moving around in bed. At time of my assessment she would not open her eyes, did not speak. Did allow me to do some of the [facility] catatonia exam-some mild resistance and waxy flexibility. In particular allowed me to position her arm in an odd manner and held it there for a sustained period, even after I left the room for about 2 minutes and then returned with her maintaining her arm in the same position. Physical Exam Vital Signs (Past 24 Hours) Last Vital Signs Temp 36.8 C 01/03/25 11:41 Pulse 64 01/03/25 12:00 Resp 20 01/03/25 11:41 BP 104/71 01/03/25 11:41 Pulse Ox 96 01/03/25 11:41 O2 Del Method Room Air 01/03/25 11:41 Results & Data ([facility]) Current Inpatient Medications Current Inpatient Medications: Current Inpatient Medications Acetaminophen (Acetaminophen 325 Mg Tab) 650 mg PO Q4H PRN PRN Reason: PAIN OR FEVER Stop: 01/24/25 13:39 Last Admin: 12/26/24 17:39 Dose: 650 mg Al Hydrox/Mg Hydrox/Simethicone (Aluminum/Magnesium/Simeth (Maalox Max) 30 Ml Udc) 15 ml PO QID PRN PRN Reason: Stomach Issues Stop: 01/24/25 15:21 Albuterol (Albut/Ipratrop 3mg/0.5mg Neb 3 Ml Vial) 3 ml NEB Q6R PRN; Protocol PRN Reason: sob Stop: 01/24/25 15:22 Ascorbic Acid (Ascorbic Acid 500 Mg Tab) 500 mg PO DAILY [facility] Stop: 01/25/25 08:59 Last Admin: 01/03/25 08:09 Dose: Not Given Aspirin (Aspirin 81 Mg Ectab) 81 mg PO DAILY [facility] Stop: 01/24/25 13:44 Last Admin: 01/03/25 08:09 Dose: Not Given Atorvastatin Calcium (Atorvastatin 20 Mg Tab) 20 mg PO DAILY [facility] Stop: 01/24/25 13:44 Last Admin: 01/03/25 08:09 Dose: Not Given Docusate Sodium (Docusate Sodium 100 Mg Cap) 100 mg PO BID [facility] Stop: 01/24/25 20:59 Last Admin: 01/03/25 08:09 Dose: Not Given Doxepin HCl (Doxepin Hcl 50 Mg Capsule) 100 mg PO DAILY [facility] Stop: 01/25/25 08:59 Last Admin: 01/03/25 08:09 Dose: Not Given Fish Oil ([place]-3 (Purified Fish Oil) 1 Gm Cap) 1 cap PO DAILY [facility] Stop: 01/25/25 08:59 Last Admin: 01/03/25 08:09 Dose: Not Given Guaifenesin (Guaifenesin Sugar Free 100 Mg/5 Ml Udc) 200 mg PO Q4H PRN PRN Reason: Cough/Congestion Stop: 01/24/25 13:39 Heparin Sodium (Porcine) (Heparin Sod 5,000 Unit/0.5 Ml Vial) 5,000 units SQ Q8 [facility] Stop: 01/24/25 13:59 Last Admin: 01/03/25 05:43 Dose: Not Given Sodium Chloride (Nss) 1,000 mls @ 80 mls/hr IV .[id number] [facility] Stop: 01/03/25 17:59 Last Admin: 01/03/25 08:09 Dose: 80 mls/hr Levothyroxine Sodium (Levothyroxine Sodium 88 Mcg Tablet) 88 mcg PO DAILYBB [facility] Stop: 01/25/25 06:29 Last Admin: 01/03/25 06:15 Dose: Not Given Ondansetron HCl (Ondansetron Inj 2 Mg/Ml 2 Ml Vial) 4 mg IV Q6H PRN PRN Reason: Nausea Stop: 01/24/25 13:41 Pantoprazole Sodium (Pantoprazole 40 Mg Tab) 40 mg PO DAILY [facility] Stop: 01/25/25 08:59 Last Admin: 01/03/25 08:09 Dose: Not Given Potassium Chloride (Potassium Chloride 10 Meq Tabcr) 10 meq PO DAILY [facility] Stop: 01/25/25 08:59 Last Admin: 01/03/25 08:09 Dose: Not Given Psyllium Hydrophilic Mucilloid (Psyllium Husk 4gm Packet) 4 gm PO QAM [facility] Stop: 01/25/25 08:59 Last Admin: 01/03/25 08:10 Dose: Not Given Quetiapine Fumarate (Quetiapine Fumarate 50 Mg Tabcr) 100 mg PO QPM [facility] Stop: 01/24/25 20:59 Last Admin: 01/02/25 21:27 Dose: Not Given Trazodone HCl (Trazodone Hcl 100 Mg Tab) 100 mg PO HS [facility] Stop: 01/24/25 20:59 Last Admin: 01/02/25 21:27 Dose: Not Given Vitamin D (Cholecalciferol 125 Mcg (5,000 Units) Tab) 125 mcg PO DAILY [facility] Stop: 01/25/25 08:59 Last Admin: 01/03/25 08:09 Dose: Not Given
[2025-01-03] MEDS: DOXEPIN HCL 50 MG CAPSULE PO SCH (21:21)
--- NOTE | 2025-01-04 10:45 | Hospitalist Progress Note ---
Date of Service January 04, 2025 Assessment & Plan (1) AMS (altered mental status): Plan: -h/o schizoaffective disorder -catatonia -pysch consult appreciated -pt responded well to ativan challenge -ativan d/c'd as per psych, no need for inpatient psych placement -con't doxepin, quetiapine, trazodone -1mg ativan IV TID -quetiapine and trazodone d/c'd as per psych to prevent oversedation -likely behavioral -pt will need longterm adult care (2) UTI (urinary tract infection): Plan: -rocephin -f/u urine C&S -resolved abx d/c'd (3) Schizophrenia: Plan: -noted -psych consult appreciated (4) COPD, moderate: Plan: -duonebs prn (5) HTN (hypertension): Plan: BP stable (6) Hyperlipidemia: Plan: -atorvastatin (7) Anxiety: Plan: con't home meds (8) Depression: Plan: con't home meds Plan Heparin SQ for DVT px Admission and Anticipated Discharge Date Admission Date: December 25, 2024 Subjective Pt alert and awake this am. Review of Systems Review of Systems: CONST: Negative for fever, body aches and chills. HENT: Negative for neck pain/stiffness, headache, congestion, sore throat, swelling. EYES: Negative for discharge/pain or vision changes. RESP: Negative for cough/hemoptysis and shortness of breath. CV: Negative chest pain, difficulty breathing, palpitations. ABD: Negative pain, nausea, vomiting. : Negative increase frequency, dysuria, blood in urine or stool. MUSC: Negative for muscle aches, edema. SKIN: Negative rash, lesions/sores. NEURO: Negative headache, dizziness, weakness. Physical Exam Physical Exam: GENERAL APPEARANCE NAD, activity normal for age, well developed/ well nourished, no cyanosis, pallor, or diaphoresis. EYES lids/conjunctiva normal. EARS/NOSE/THROAT Mucous membranes moist, nares normal, lips/teeth normal uvula midline without oral pharyngeal erythema, exudate or swelling TMs normal bilaterally. No lymphangitis/lymphedema. HEAD/NECK normocephalic atraumatic, no facial trauma, neck is supple. RESPIRATORY respiratory effort normal, speaks in full sentences, no tripod posit ion, no accessory muscle use. Lungs clear to auscultation without rhonchi, wheezes, rales CARDIAC Regular rate and rhythm, no edema. ABDOMINAL Soft, ND/NT. No evidence of fluid wave. No pulsatile masses on exam, rebound tenderness, Donald sign or pain over Mcburney's point. MUSCLES/EXTREMITIES No abnormal range of motion, no swelling. SKIN Warm, pink and dry. No rashes, dermatoses, petechiae or lesions. NEUROLOGICAL Speech is clear and appropriate. Normal level of consciousness. Gait and coordination are normal. 5/5 strength in all extremities. PSYCH Normal mood and affect. Judgement/competence is appropriate Results & Data Results & Data Vital Signs (Past 12 Hours) Vital Signs Temp Pulse Pulse Resp BP BP Pulse Ox 01/04/25 08:24 36.5 C 61 20 132/81 93 01/04/25 07:23 62 01/04/25 03:41 36.7 C 65 16 127/71 96 01/03/25 23:49 69 01/03/25 23:29 68 18 91/61 L 01/03/25 22:46 71 16 85/52 L 94 O2 Del Method 01/04/25 08:24 Room Air 01/04/25 07:23 01/04/25 03:41 Room Air 01/03/25 23:49 01/03/25 23:29 01/03/25 22:46 Room Air PG Care Time/CCT Total # of Minutes Spent Total Time Spent with Patient: Total time spent is greater than 50% in coordination of care (as documented) at patient's floor/unit and/or counseling patient: Coding Level of Care Code 15211 SUB INP/OBS CARE 2/35MIN Diagnoses AMS (altered mental status) R41.82 UTI (urinary tract infection) N39.0 Schizophrenia, unspecified type F20.9 Schizophrenia type: unspecified COPD, moderate J44.9 HTN (hypertension) I10 Hyperlipidemia E78.5 Anxiety F41.9 Depression F32.9 (3) Schizophrenia Schizophrenia type: unspecified Qualified Code(s): F20.9 - Schizophrenia, unspecified
[2025-01-05 07:43] LABS: Hematocrit (blood only) 34.1 % (37.0-47.0); Hemoglobin 11.8 g/dl (12.0-16.0); Mean Corpuscular Hemoglobin 30.7 pg (25.0-34.0); Mean Corpuscular Volume 88.8 fL (80.0-100.0); Platelet Count 193 K/uL (130-400); RDW Standard Deviation 49.1 fL (36.4-46.3); Red Blood Count 3.84 M/uL (4.20-5.40); White Blood Count 5.98 K/ul (4.8-10.8)
[2025-01-05 08:06] LABS: Anion Gap 7.0 (3-11); Blood Urea Nitrogen 12.0 mg/dl (6-23); Calcium 8.9 mg/dl (8.6-10.3); Carbon Dioxide 27.0 mmol/L (21-32); Chloride 108.0 mmol/L (98-107); Creatinine Clr Calc Pharmacy 58.2 ml/min; Glucose 109.0 mg/dl (70-99(Fasting)); Potassium 4.0 mmol/L (3.5-5.1); Sodium 142.0 mmol/L (136-145)
--- NOTE | 2025-01-05 08:44 | Hospitalist Progress Note ---
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 Case management working on solution. Subjective Pt alert and responsive this am, conversing and ate breakfast. Review of Systems Review of Systems: CONST: Negative for fever, body aches and chills. HENT: Negative for neck pain/stiffness, headache, congestion, sore throat, swelling. EYES: Negative for discharge/pain or vision changes. RESP: Negative for cough/hemoptysis and shortness of breath. CV: Negative chest pain, difficulty breathing, palpitations. ABD: Negative pain, nausea, vomiting. : Negative increase frequency, dysuria, blood in urine or stool. MUSC: Negative for muscle aches, edema. SKIN: Negative rash, lesions/sores. NEURO: Negative headache, dizziness, weakness. Physical Exam Physical Exam: GENERAL APPEARANCE NAD, activity normal for age, well developed/ well nourished, no cyanosis, pallor, or diaphoresis. EYES lids/conjunctiva normal. EARS/NOSE/THROAT Mucous membranes moist, nares normal, lips/teeth normal uvula midline without oral pharyngeal erythema, exudate or swelling TMs normal bilaterally. No lymphangitis/lymphedema. HEAD/NECK normocephalic atraumatic, no facial trauma, neck is supple. RESPIRATORY respiratory effort normal, speaks in full sentences, no tripod position, no accessory muscle use. Lungs clear to auscultation without rhonchi, wheezes, rales CARDIAC Regular rate and rhythm, no edema. ABDOMINAL Soft, ND/NT. No evidence of fluid wave. No pulsatile masses on exam, rebound tenderness, Donald sign or pain over Mcburney's point. MUSCLES/EXTREMITIES No abnormal range of motion, no swelling. SKIN Warm, pink and dry. No rashes, dermatoses, petechiae or lesions. NEUROLOGICAL Speech is clear and appropriate. Normal level of consciousness. Gait and coordination are normal. 5/5 strength in all extremities. PSYCH Normal mood and affect. Judgement/competence is appropriate Results & Data Results & Data Vital Signs (Past 12 Hours) Vital Signs Temp Pulse Pulse Resp BP BP Pulse Ox 01/05/25 08:16 36.4 C L 70 18 113/64 95 01/05/25 07:08 75 01/05/25 03:31 36.4 C L 71 16 108/68 97 01/05/25 00:17 75 105/68 96 01/04/25 22:56 36.6 C 78 14 91/54 L 94 01/04/25 21:45 69 O2 Del Method 01/05/25 08:16 Room Air 01/05/25 07:08 01/05/25 03:31 Room Air 01/05/25 00:17 Room Air 01/04/25 22:56 Room Air 01/04/25 21:45 PG Care Time/CCT Total # of Minutes Spent Total Time Spent with Patient: Total time spent is greater than 50% in coordination of care (as documented) at patient's floor/unit and/or counseling patient: Coding Level of Care Code 94217 SUB INP/OBS CARE 2/35MIN Diagnoses AMS (altered mental status) R41.82 UTI (urinary tract infection) N39.0 Schizophrenia, unspecified type F20.9 Schizophrenia type: unspecified COPD, moderate J44.9 HTN (hypertension) I10 Hyperlipidemia E78.5 Anxiety F41.9 Depression F32.9 (3) Schizophrenia Schizophrenia type: unspecified Qualified Code(s): F20.9 - Schizophrenia, unspecified
--- NOTE | 2025-01-05 14:25 | Psychiatric Progress Note ---
Date of Service January 05, 2025 Impression / Recommendations Impression 64 y/o F h/o Schizoaffective disorder, COPD, HTN, HLD, who presents with AMS in the context of active UTI. Psychiatry consulted for evaluation. Pt has h/o Schizoaffective disorder, historically has required structured living due to recurrent erratic behaviors, psychosis. She presents poor insight into her condition. A: Significant improvement today, alert, awake and conversing appropriately and can speak to her psychiatric outpatient care. Suspect doxepin in the morning was causing significant sedation. Seems to be improving with lessening sedating medications. No evidence for catatonia at this point. Given history of psychosis consider restarting Seroquel in the next 1-2 weeks if sedation remains improved. Overall, I spent a total of 45 minutes with this case including review of chart records, nursing report, review of lab work, direct evaluation of the patient at bedside, discussion of the patient with the hospitalist provider, discussion with the psychiatric liaison during clinical rounds, and documentation in the electronic health record. (1) Catatonia: (2) Schizoaffective disorder: (3) UTI (urinary tract infection): (4) AMS (altered mental status): Plan 01/05/2025: -Discontinue ativan (she never received any doses) -Continue with doxepin at HS -If sedation remains improved over next 1-2 weeks then consider restarting Seroquel 100mg HS given history of schizoaffective disorder vs option to trial alternative antipsychotic (sees Dr. Sanchez as an outpatient for psychiatric management) -VAIBHAV signed for Dr. Sanchez, will fax his office notes from this hospitalization 01/03/2025: -Discontinue Seroquel and trazodone to lessen risks for hypotension -Move doxepin from morning to HS given sedating effects -Start ativan 0.5mg IV TID or 1mg IV TID with goal of consistent administration. 01/02/25: Trial discontinuation of lorazepam and psychiatry to assess if symptoms persist 12/29/24: Decrease lorazepam to 0.5mg BID IV/PO, then tomorrow 0.5mg HS, then d/c. 12/28/24: Lorazepam 0.5mg QAM, 0.5mg Q2pm, 1mg HS IV/PO 12/27/24: Transition to oral Lorazepam 1mg TID 12/26/24: Lorazepam IV 1mg TID, can decrease dose if hypotensive, bradypneic, or causing excess sedation Continue home Trazodone 100mg HS, Doxepin 100mg HS, Quetiapine XR 100mg QPM Psychiatry consults to follow Interval History Identifying Information 64 y/o F h/o Schizoaffective disorder, COPD, HTN, HLD, who presents with AMS in the context of active UTI. Psychiatry consulted for evaluation. Chief Complaint "Ok". Subjective Subjective Patient was seen & assessed and interval progress reviewed. A&Ox4. Reports sleeping "good" overnight. A little tired today but feels "ok". Denies depression, anxiety, psychosis. Feels "a little bit better" overall since coming to the hospital noting that 'I'm not sleeping as much" during the day which she is glad for. Reports she'd been seeing Dr. Sanchez at [facility] via telemedicine appointments and signed VAIBHAV. Likes her current medication. Denies any psychiatric concerns nor symptoms. Wonders about where she is going to live. Physical Exam Psychiatric Orientation: alert and oriented x 3 Apperance: appropriately dressed and appropriately groomed Eye Contact: good eye contact Motor Behavior: no abnormal motor movements Speech: normal rate/rhythm/volume of speech Affect: + constricted affect Mood: no depressed mood and no anxious mood Thought Process: linear/logical thought process Thought Content: reality based without delusions Suicidal Thoughts: denies suicidal thoughts Homicidal Thoughts: denies homicidal thoughts Hallucinations: no auditory hallucinations and no visual hallucinations Cognition: recent memory grossly intact, remote memory grossly intact, attention grossly intact and language grossly intact Estimated Intelligence: consistent with education level Insight: + fair insight Judgment: + fair judgement Vital Signs (Past 24 Hours) Last Vital Signs Temp 36.4 C L 01/05/25 08:16 Pulse 70 01/05/25 08:16 Resp 18 01/05/25 08:16 BP 113/64 01/05/25 08:16 Pulse Ox 95 01/05/25 08:16 O2 Del Method Room Air 01/05/25 08:16 Results & Data (U) Laboratory Results Laboratory Results - last 24 hr 01/05/25 07:28 WBC 5.98 RBC 3.84 L Hgb 11.8 L Hct 34.1 L MCV 88.8 MCH 30.7 MCHC 34.6 RDW Std Deviation 49.1 H RDW Coeff of Samreen 15.1 H Plt Count 193 MPV 11.2 Sodium 142 Potassium 4.0 Chloride 108 H Carbon Dioxide 27 Anion Gap 7 BUN 12 Creatinine 0.86 Est Cr Clr Drug Dosing 58.2 eGFR 75.86 BUN/Creatinine Ratio 14.0 Glucose 109 H Calcium 8.9 Current Inpatient Medications Current Inpatient Medications: Current Inpatient Medications Acetaminophen (Acetaminophen 325 Mg Tab) 650 mg PO Q4H PRN PRN Reason: PAIN OR FEVER Stop: 01/24/25 13:39 Last Admin: 12/26/24 17:39 Dose: 650 mg Al Hydrox/Mg Hydrox/Simethicone (Aluminum/Magnesium/Simeth (Maalox Max) 30 Ml Udc) 15 ml PO QID PRN PRN Reason: Stomach Issues Stop: 01/24/25 15:21 Albuterol (Albut/Ipratrop 3mg/0.5mg Neb 3 Ml Vial) 3 ml NEB Q6R PRN; Protocol PRN Reason: sob Stop: 01/24/25 15:22 Ascorbic Acid (Ascorbic Acid 500 Mg Tab) 500 mg PO DAILY DUNIA Stop: 01/25/25 08:59 Last Admin: 01/05/25 07:34 Dose: 500 mg Aspirin (Aspirin 81 Mg Ectab) 81 mg PO DAILY DUNIA Stop: 01/24/25 13:44 Last Admin: 01/05/25 07:34 Dose: 81 mg Atorvastatin Calcium (Atorvastatin 20 Mg Tab) 20 mg PO DAILY DUNIA Stop: 01/24/25 13:44 Last Admin: 01/05/25 07:34 Dose: 20 mg Docusate Sodium (Docusate Sodium 100 Mg Cap) 100 mg PO BID DUNIA Stop: 01/24/25 20:59 Last Admin: 01/05/25 07:34 Dose: Not Given Doxepin HCl (Doxepin Hcl 50 Mg Capsule) 100 mg PO HS DUNIA Stop: 02/02/25 20:59 Last Admin: 01/04/25 20:23 Dose: 100 mg Fish Oil (Ramah-3 (Purified Fish Oil) 1 Gm Cap) 1 cap PO DAILY DUNIA Stop: 01/25/25 08:59 Last Admin: 01/05/25 07:33 Dose: 1 cap Guaifenesin (Guaifenesin Sugar Free 100 Mg/5 Ml Udc) 200 mg PO Q4H PRN PRN Reason: Cough/Congestion Stop: 01/24/25 13:39 Heparin Sodium (Porcine) (Heparin Sod 5,000 Unit/0.5 Ml Vial) 5,000 units SQ Q8 DUNIA Stop: 01/24/25 13:59 Last Admin: 01/05/25 05:58 Dose: 5,000 units Levothyroxine Sodium (Levothyroxine Sodium 88 Mcg Tablet) 88 mcg PO DAILYBB DUNIA Stop: 01/25/25 06:29 Last Admin: 01/05/25 05:58 Dose: 88 mcg Ondansetron HCl (Ondansetron Inj 2 Mg/Ml 2 Ml Vial) 4 mg IV Q6H PRN PRN Reason: Nausea Stop: 01/24/25 13:41 Pantoprazole Sodium (Pantoprazole 40 Mg Tab) 40 mg PO DAILY DUNIA Stop: 01/25/25 08:59 Last Admin: 01/05/25 07:34 Dose: 40 mg Potassium Chloride (Potassium Chloride 10 Meq Tabcr) 10 meq PO DAILY DUNIA Stop: 01/25/25 08:59 Last Admin: 01/05/25 07:35 Dose: 10 meq Psyllium Hydrophilic Mucilloid (Psyllium Husk 4gm Packet) 4 gm PO QAM DUNIA Stop: 01/25/25 08:59 Last Admin: 01/05/25 07:34 Dose: Not Given Vitamin D (Cholecalciferol 125 Mcg (5,000 Units) Tab) 125 mcg PO DAILY DUNIA Stop: 01/25/25 08:59 Last Admin: 01/05/25 07:34 Dose: 125 mcg
--- NOTE | 2025-01-06 08:00 | Hospitalist Progress Note ---
Date of Service January 06, 2025 Assessment & Plan (1) AMS (altered mental status): (2) Encephalopathy acute: (3) Schizophrenia: (4) UTI (urinary tract infection): (5) B12 deficiency: (6) Vitamin D deficiency: (7) COPD, moderate: (8) HTN (hypertension): (9) Hyperlipidemia: (10) Anxiety: (11) Depression: (12) Hypotension: Plan # AMS (altered mental status) 64yo female brought in by boyfriend for AMS x 3 days with unresponsiveness, rightward fixed gaze. On doxepin, Seroquel and trazodone at baseline for mental health on admission HOWEVER, also note fills for abilify 15mg daily and gabapentin rx for 600mg TID + 100mg BID and suspect contributing w/ combination Hx of needing structured living due to recurrent erratic behaviors, psychosis, with poor insight into her condition. Was hypotensive in the field and IVF ordered at time of presentation. CT head on admission negative for CVA UA concerning for infection and was given Ceftriaxone IV x 3 doses Tylenol/alcohol level negative but UDS + for MDMA-- note if did take MDMA w/ psych meds, could be concerning for a serotonin syndrome (confusion, rapid HR/BP/loss of muscle coordination/etc) however trazodone metabolites could also cause a false positive amphetamine result Psych consulted - Switched doxepin to 100mg HS to prevent sedation during the day - Seroquel remains on hold as well as trazodone due to risk for hypotension - Ativan 0.5mg TID with goal for consistent administration --> DISCONTNUED as never received any doses 01/06 Remains OFF both of these at this time, no neuropathic pain reported/neuropathy and mentation appears MUCH improved and sleeping/eating and calm/cooperative and reports feeling better Continue doxepin 100mg HS--> If sedation remains improved over next 1-2 wks, consideration to restart Seroquel 100mg HS given hx schizoaffective disorder vs option to trial different antipsychotic Message also sent to psych as appears patient was also on abilify 15mg daily along with gabapentin 600mg TID + 100mg BID (confirmed via fill history) and suspect combination of doxepin, seroquel, trazodone along with abilify and high dose gabapentin could have been contributing to toxic effects from medications and hypotension on admission 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 #Urinary Tract infection UA appearing positive on admission given Ceftriaxone IV x 3 days Appears urine cx w/ staph epidermidis, do not believe coverage appropriate w/ ceftriaxone and will repeat UA/cx to ensure covered/resolved and not continuing to contribute but reports resolution in prior urinary symptoms Also note rxs for Doxycycline 10 day course on 11/18, prior Macrobid x 3 day co urse 10/12 --?for recurrent UTIs?? #Hx Schizoaffective disorder, catatonia type. Anxiety/Depression Initially on Ativan IV, titrated to PO and has been discontinued as not using Seroquel/trazodone as above, improved sleep/daytime drowsiness w/ switching to HS doxepin. Consideration for Seroquel in next 1-2 wks as above, plan for terminal system operator care #HTN -with hypotension on admission, ?2nd to seroquel along with high dose gabapentin/psych meds/dehydration. IVF ordered on admission Adjustment to medications as outlined above and remains with Seroquel on hold. BP stable 123/73 with doxepin #HLD- chronic/stable and continues on atorvastatin 20mg daily #Mitral valve repair -Noted hx 2010. +murmur on exam. ECHO ordered for eval. Stable telemetry, no CP reported. Continues on baby aspirin daily/statin #B12 deficiency/low normal -Low normal in 200 IM x 2 ordered inpatient and plan to continue PO at discharge #Vitamin D deficiency-Level checked w/ depression- low. PO replacement ordered/will continue #Hypothyroidism-TSH wnl 1.4 and continues on levothyroxine #GERD - stable by report and continues on protonix once daily #COPD -Hx emphysema Duonebs available but denies SOB/97% on RA and has not utilized at all while inpatient DVT proph: Heparin SQ continued while inpatient Dispo: continued inpatient stay for eventual placement. continuing to monitor on telemetry/checking echo given + murmur and hx valve repair w/ last echo 2020 in system Patient doing MUCH better from mental health standpoint and remains OFF gabapentin/abilify and only on doxepin. Monotiring for seroqel in next 1-2 wks but will need to stop gabapentin/abilify as not receiving at this time unless otherwise directed by psychiatry Do also note patient had brain MRI in 2020--> no acute infarct but did note janessa-ventricular and subcortical flair nonspecific and ?minimal chronic small vessel ischemia. Did note fluid signal w/o mastoid air cells ?mastoiditis (hx mastoiditis) ?Hx chronic osteo/bactrim use?? 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 inferior palpable abn corresponds to anterior protruding sternal wire on soft tissue ultrasound from 2019. During admission in 2020 had afib w/ RVR s/p ablation by cardiology in September of that year however Eliquis stopped at that time and was to continue diltiazem and does not appear to be on any BB at baseline. Has remained NSR on telemetry w/ PAC, rates 60-70s. * At that time, hx chronic osteomyelitis since open heart valve repair but ID consult ok w/ stop Bactrim and monitoring CRP and last in 2020 was <0.29. Had been on since annuloplasty in 2010.--> last ECHO w/ known severe mitral valve stenosis w/ preserved EF in 2020 Admission and Anticipated Discharge Date Admission Date: December 25, 2024 Supervising Physician Co-Signing Physician Notes The patient was not seen by me. The chart was reviewed. Case discussed with RICK Humphrey. Agree with assessment and plan Subjective Patient evaluated this afternoon, resting in bed. Reports good sleep/appetite and mood. No further urinary symptoms but did report she had burning last week but nothing at this time. No abdominal pain/nausea/fever or chills but discussed repeating given prior cx to ensure no further issue. Discussed prior ablation for afib, appears not to remember having this done but does remember having open heart to work on her valve in [place] in 2010 and was on antibiotics for pain to her chest but not on them anymore and no pain on exam. Discussed checking ECHO to ensure valve working. Tele Sinus w/ PAC 60-70s. No evidence for afib on review from past 128hours. Remains on such. Physical Exam Physical Exam: General: 64yo female resting in bed, alert/oriented to person/place/year/month, NAD and reports feeling better/improved mood/appetite HEENT: head atraumatic, normocephalic, mmm, trachea midline Resp: even/unlabored, no wheezing/rales, on room air Chest: sternotomy scar noted, no pain on palpation CV: RRR, occ PAC on monitor, no arrhythmia, +murmur, no edema, pulses present GI: +BS, soft/NT no duran MSK/Neuro: nonfocal, not confused, answering questions appropriately Psych: AOx3, cooperative Results & Data Results & Data Vital Signs (Past 12 Hours) Vital Signs Temp Pulse Pulse Resp BP Pulse Ox O2 Del Method 01/06/25 07:28 36.5 C 77 17 110/71 95 Room Air 01/06/25 05:30 82 01/06/25 03:39 36.6 C 75 18 117/74 95 Room Air 01/05/25 22:54 36.6 C 81 18 100/63 95 Room Air 01/05/25 21:45 72 01/05/25 20:15 Room Air Laboratory Results 01/06/25 Range/Units 08:19 Sodium 142 (136-145) mmol/L Potassium 4.1 (3.5-5.1) mmol/L Chloride 107 (98-107) mmol/L Carbon Dioxide 27 (21-32) mmol/L Anion Gap 8 (3-11) BUN 14 (6-23) mg/dl Creatinine 0.77 (0.6-1.2) mg/dl Est Cr Clr Drug Dosing 64.7 ml/min eGFR 86.62 BUN/Creatinine Ratio 18.2 (10-20) Glucose 105 H (70-99(Fasting)) mg/dl Calcium 9.2 (8.6-10.3) mg/dl Magnesium 1.7 (1.7-2.4) mg/dl Total Bilirubin 0.3 (0.2-1.0) mg/dl Direct Bilirubin 0.1 (0-0.2) mg/dl AST 20 (13-39) U/L ALT 20 (7-52) U/L Alkaline Phosphatase 94 (34-104) U/L Total Protein 6.6 (6.0-8.3) gm/dl Albumin 3.8 (3.4-5.0) gm/dl Vitamin B12 257 (180-914) pg/ml 25-OH Vitamin D Total 22.0 L (30-100) ng/ml PG Care Time/CCT Total # of Minutes Spent Total Time Spent with Patient: Total time spent is greater than 50% in coordination of care (as documented) at patient's floor/unit and/or counseling patient: Coding Level of Care Code 05308 SUB INP/OBS CARE 3/50MIN Diagnoses AMS (altered mental status) R41.82 Encephalopathy acute G93.40 Schizophrenia, unspecified type F20.9 Schizophrenia type: unspecified UTI (urinary tract infection) N39.0 B12 deficiency E53.8 Vitamin D deficiency E55.9 COPD, moderate J44.9 HTN (hypertension) I10 Hyperlipidemia E78.5 Anxiety F41.9 Depression F32.9 Hypotension I95.9 (3) Schizophrenia Schizophrenia type: unspecified Qualified Code(s): F20.9 - Schizophrenia, unspecified
[2025-01-06 08:57] LABS: Alanine Aminotransferase 20.0 U/L (7-52); Albumin Level 3.8 gm/dl (3.4-5.0); Alkaline Phosphatase 94.0 U/L (34-104); Anion Gap 8.0 (3-11); Bilirubin,Total 0.3 mg/dl (0.2-1.0); Blood Urea Nitrogen 14.0 mg/dl (6-23); Calcium 9.2 mg/dl (8.6-10.3); Carbon Dioxide 27.0 mmol/L (21-32); Chloride 107.0 mmol/L (98-107); Creatinine Clr Calc Pharmacy 64.7 ml/min; Glucose 105.0 mg/dl (70-99(Fasting)); Magnesium 1.7 mg/dl (1.7-2.4); Potassium 4.1 mmol/L (3.5-5.1); Sodium 142.0 mmol/L (136-145); Total Protein 6.6 gm/dl (6.0-8.3)
[2025-01-06] MEDS: MAGNESIUM SULFATE / D5W 1 GM/100 ML BAG IV ONE (09:28)
[2025-01-06] MEDS: CYANOCOBALAMIN 1000 MCG/ML VIAL IM SCH (13:16)
[2025-01-07 07:12] LABS: Hematocrit (blood only) 37.8 % (37.0-47.0); Hemoglobin 12.8 g/dl (12.0-16.0); Mean Corpuscular Hemoglobin 30.3 pg (25.0-34.0); Mean Corpuscular Volume 89.4 fL (80.0-100.0); Platelet Count 207 K/uL (130-400); RDW Standard Deviation 51.5 fL (36.4-46.3); Red Blood Count 4.23 M/uL (4.20-5.40); White Blood Count 6.03 K/ul (4.8-10.8)
--- NOTE | 2025-01-07 07:34 | Hospitalist Progress Note ---
Date of Service January 07, 2025 Assessment & Plan (1) AMS (altered mental status): (2) Encephalopathy acute: (3) Schizophrenia: (4) UTI (urinary tract infection): (5) B12 deficiency: (6) Vitamin D deficiency: (7) COPD, moderate: (8) HTN (hypertension): (9) Hyperlipidemia: (10) Anxiety: (11) Depression: (12) Hypotension: Plan # AMS (altered mental status) 64yo female brought in by boyfriend for AMS x 3 days with unresponsiveness, rightward fixed gaze. On doxepin, Seroquel and trazodone at baseline for mental health on admission HOWEVER, also note fills for abilify 15mg daily and gabapentin rx for 600mg TID + 100mg BID and suspect contributing w/ combination Hx of needing structured living due to recurrent erratic behaviors, psychosis, with poor insight into her condition. Was hypotensive in the field and IVF ordered at time of presentation. CT head on admission negative for CVA UA concerning for infection and was given Ceftriaxone IV x 3 doses Tylenol/alcohol level negative but UDS + for MDMA-- note if did take MDMA w/ psych meds, could be concerning for a serotonin syndrome (confusion, rapid HR/BP/loss of muscle coordination/etc) however trazodone metabolites could also cause a false positive amphetamine result. Lyme negative Psych consulted - Switched doxepin to 100mg HS to prevent sedation during the day and Seroquel remains on hold as well as trazodone due to risk for hypotension but consideration to resume in next 1-2 wks. 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 Has gotten courses abx earlier this year for UTIs w/ doxy and macrobid --> placing on macrobid as above, monitor final urine cx/sensitivities for adj if needed #Hx Schizoaffective disorder, catatonia type. Anxiety/Depression Initially on Ativan IV, titrated to PO and has been discontinued as not using Seroquel/trazodone as above, improved sleep/daytime drowsiness w/ switching to HS doxepin. Consideration for Seroquel in next 1-2 wks as above, plan for prison care #HTN -with hypotension on admission, ?2nd to seroquel along with high dose gabapentin/psych meds/dehydration. IVF ordered on admission Adjustment to medications as outlined above and remains with Seroquel on hold. BP stable 113/67 with doxepin #HLD- chronic/stable and continues on atorvastatin 20mg daily #Mitral valve repair -Noted hx 2010. +murmur on exam. ECHO ordered for eval and not yet read (done 01/06) Stable telemetry, no CP reported. Continues on baby aspirin daily/statin #B12 deficiency/low normal -Low normal in 200 IM x 2 ordered inpatient and plan to continue PO at discharge #Vitamin D deficiency -Level checked w/ depression- low. PO replacement ordered/will continue #Hypothyroidism-TSH wnl 1.4 and continues on levothyroxine #GERD - stable by report and continues on protonix once daily #COPD -Hx emphysema. Duonebs available but denies SOB/97% on RA and has not utilized at all while inpatient DVT proph: Heparin SQ continued while inpatient Dispo: continued inpatient stay for eventual placement. off seroquel/abilify/gabapentin at this time. macrobid for urine coverage. Blood cx pending given prior bacteremia/osteo (of chest following valve repair but inflammatory markers w/ CRP NOT elevated but did get blood cx/pending and will need to ensure negative). See prior day notes Admission and Anticipated Discharge Date Admission Date: December 25, 2024 Supervising Physician Co-Signing Physician Notes The patient was not seen by me. The chart was reviewed. Case discussed with RICK Humphrey. Agree with assessment and plan Subjective EVal this morning, brushing her teeth. Sleeping well, eating/drinking without issue. Discussed urine still with bacteria but no sx. Will place nitrofurantoin given no systemic symptoms and procal neg/no fever. Has dealth w/ UTIs earlier this year. No fever/chills, chest pain, shortness of breath, abdominal pain nausea or vomiting. She does have some dry/flaky skin to posterior scalp/L neck and will order cream/monitor. Questions/concerns addressed at this time. Physical Exam 2 Physical Exam: General: 64yo female in bathroom brushing her teeth, appears well/reports good sleep, is alert/oriented, NAD, mood improved/stable HEENT: head atraumatic, normocephalic, mmm, trachea midline Resp: even/unlabored, no wheezing/rales, on room air Chest: sternotomy scar noted, no pain on palpation CV: RRR, occ PAC on monitor, no arrhythmia, +murmur, no edema, pulses present GI: +BS, soft/NT no duran MSK/Neuro: nonfocal, not confused, answering questions appropriately Psych: AOx3, cooperative SKin: dry skin posterior scalp/excoriation to L neck from itching, ?eczema Results & Data Results & Data Vital Signs (Past 12 Hours) Vital Signs Temp Pulse Pulse Resp BP Pulse Ox O2 Del Method 01/07/25 07:25 36.9 C 73 18 112/72 96 Room Air 01/07/25 07:00 78 01/07/25 03:42 36.9 C 80 16 108/66 96 Room Air 01/07/25 00:53 76 01/06/25 23:15 37.5 C 83 16 124/81 100 Room Air 01/06/25 21:55 Room Air Laboratory Results 01/07/25 06:36 01/07/25 06:36 Mag 1.9 CRP <0.50 LFTs wnl PG Care Time/CCT Total # of Minutes Spent Total Time Spent with Patient: Total time spent is greater than 50% in coordination of care (as documented) at patient's floor/unit and/or counseling patient: Coding Level of Care Code 26209 SUB INP/OBS CARE 50MIN Diagnoses AMS (altered mental status) R41.82 Encephalopathy acute G93.40 Schizophrenia, unspecified type F20.9 Schizophrenia type: unspecified UTI (urinary tract infection) N39.0 B12 deficiency E53.8 Vitamin D deficiency E55.9 COPD, moderate J44.9 HTN (hypertension) I10 Hyperlipidemia E78.5 Anxiety F41.9 Depression F32.9 Hypotension I95.9 (3) Schizophrenia Schizophrenia type: unspecified Qualified Code(s): F20.9 - Schizophrenia, unspecified
[2025-01-07 07:36] LABS: Alanine Aminotransferase 26 U/L (7-52); Albumin Globulin Ratio 1.3 (0.9-2); Albumin Level 3.9 gm/dl (3.4-5.0); Alkaline Phosphatase 97 U/L (34-104); Anion Gap 8 (3-11); Bilirubin,Total 0.4 mg/dl (0.2-1.0); Blood Urea Nitrogen 10 mg/dl (6-23); Calcium 9.4 mg/dl (8.6-10.3); Carbon Dioxide 27 mmol/L (21-32); Chloride 107 mmol/L (98-107); Creatinine Clr Calc Pharmacy 66.0 ml/min; Globulin 2.9 gm/dl (2.5-4.0); Glucose 101 mg/dl (70-99(Fasting)); Magnesium 1.9 mg/dl (1.7-2.4); Potassium 4.1 mmol/L (3.5-5.1); Sodium 142 mmol/L (136-145); Total Protein 6.8 gm/dl (6.0-8.3)
[2025-01-07 08:04] LABS: Appearance Urine Clear (Clear); Bacteria Urine Automated 4+ (None Seen); Cast Urine Automated 0-2 /lpf (0-2); Epithelial Cell Urine Auto 0-2 /hpf (0-2); Glucose Urine UA Negative (Negative); RBC Urine Automated 0-2 /hpf (0-2)
[2025-01-07 08:38] LABS: Procalcitonin < 0.02 ng/ml (0-0.5)
[2025-01-07 09:03] LABS: Lyme Screen Rflx Confirmation Negative (Negative)
[2025-01-07] MEDS: TRIAMCINOLONE ACET 0.1% OINT 80 GM TUBE EXT SCH (12:49)
[2025-01-07] MEDS: ALUMINUM/MAGNESIUM/SIMETH (MAALOX MAX) 30 ML UDC PO PRN (20:12)
[2025-01-07] MEDS: NITROFURANTOIN MONOHYDRATE 100 MG CAP PO SCH (20:13)
[2025-01-08] MEDS: CYANOCOBALAMIN (B-12) 500 MCG TABLET PO SCH (08:48)
--- NOTE | 2025-01-08 12:39 | Hospitalist Progress Note ---
"Date of Service January 08, 2025 Assessment & Plan (1) Schizoaffective disorder: (2) UTI (urinary tract infection): (3) AMS (altered mental status): (4) Encephalopathy acute: (5) Schizophrenia: (6) COPD, moderate: Plan 64-year-old female who was brought in by her boyfriend for AMS x 3 days with unresponsiveness and rightward fixed gaze. CT head on admission negative for CVA. Tylenol/alcohol level negative but UDS + for MDMA - note if did take MDMA w/ psych meds, could be concerning for a serotonin syndrome (confusion, rapid HR/BP/loss of muscle coordination/etc) however trazodone metabolites could also cause a false positive amphetamine result. Lyme negative. She was admitted for concern for catatonia. She does have a history of schizoaffective disorder and has required structured living arrangements in the past due to recurrent erratic behaviors and psychosis. She has improved with the medication changes below. She remains on antibiotic treatment for her UTI. Awaiting office of aging determination for placement. #AMS | Catatonia | Schizoaffective disorder - On doxepin, Seroquel and trazodone at baseline for mental health on admission - Psych consulted - Switched doxepin to 100mg HS to prevent sedation during the day. 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 Blood cultures obtained given history of bacteremia/osteo of chest following valve repair #Mitral valve repair -Noted hx 2010. +murmur on exam. - Stable telemetry, no CP reported - Echocardiogram similar to previous - Continues on baby aspirin daily/statin #B12 deficiency/low normal - Low normal in 200 IM x 2 ordered inpatient and plan to continue PO at discharge #Vitamin D deficiency - Level checked w/ depression- low. PO replacement ordered/will continue #HTN - with hypotension on admission, ?2nd to Seroquel along with high dose gabapentin/psych meds/dehydration. IVF ordered on admission with improvement - Adjustment to medications as outlined above and remains with Seroquel on hold #HLD- continue atorvastatin 20mg daily #Hypothyroidism -TSH wnl 1.4 and continues on levothyroxine #GERD - stable by report and continues on Protonix once daily #COPD - Hx emphysema. Duonebs available but denies SOB/97% on RA and has not utilized at all while inpatient DVT proph: Heparin SQ continued while inpatient Dispo: continued inpatient stay for eventual placement Ordered Bentyl Admission and Anticipated Discharge Date Admission Date: December 25, 2024 Subjective Patient seen and evaluated at bedside. She reports having abdominal gas pains. She thought this was heartburn and had Maalox, but now feels it is more gas- related pain. We discussed trying Bentyl. She had a BM yesterday. She also would like to shower; order placed. We discussed her oral antibiotic regimen for her UTI. She denies any urinary symptoms at this time. We reviewed her echocardiogram results. She denies any additional complaints or concerns at this time. Continuing to wait for rehab placement. Reviewed telemetry: NSR 70-80s. Physical Exam Physical Exam: General: No acute distress, nondiaphoretic, well-developed, well-nourished. Skin: Warm, dry. No peripheral edema noted. Small patch of dry skin noted on posterior scalp. Cardiac: Well-perfused. Rate in 80s. Pulm: Normal respiratory effort. 96% on room air. Abdominal: Soft, nontender, nondistended. Bowel sounds present. Neuro: A&O x3. No focal neurological deficits. Results & Data Results & Data Vital Signs (Past 12 Hours) Vital Signs Temp Pulse Pulse Resp BP Pulse Ox O2 Del Method 01/08/25 12:18 97.9 F 98 H 16 141/72 H 96 Room Air 01/08/25 08:25 98.1 F 80 16 92/59 L 95 Room Air 01/08/25 08:12 Room Air 01/08/25 03:33 98.1 F 82 20 131/69 97 Room Air 01/08/25 01:00 76 Laboratory Results Reviewed urine culture Reviewed blood cultures PG Care Time/CCT Total # of Minutes Spent Total Time Spent with Patient: Total time spent is greater than 50% in coordination of care (as documented) at patient's floor/unit and/or counseling patient: Coding Level of Care Code 73640 SUB INP/OBS CARE 3/50MIN Diagnoses Schizoaffective disorder F25.9 UTI (urinary tract infection) N39.0 AMS (altered mental status) R41.82 Encephalopathy acute G93.40 Schizophrenia, unspecified type F20.9 Schizophrenia type: unspecified COPD, moderate J44.9 (5) Schizophrenia Schizophrenia type: unspecified Qualified Code(s): F20.9 - Schizophrenia, unspecified"
[2025-01-08] MEDS: DICYCLOMINE HCL 20 MG TAB PO PRN (13:16)
--- NOTE | 2025-01-09 11:55 | Hospitalist Progress Note ---
"Date of Service January 09, 2025 Assessment & Plan (1) Schizoaffective disorder: (2) UTI (urinary tract infection): (3) AMS (altered mental status): (4) Encephalopathy acute: (5) Schizophrenia: (6) COPD, moderate: Plan 64-year-old female who was brought in by her boyfriend for AMS x 3 days with unresponsiveness and rightward fixed gaze. CT head on admission negative for CVA. Tylenol/alcohol level negative but UDS + for MDMA - note if did take MDMA w/ psych meds, could be concerning for a serotonin syndrome (confusion, rapid HR/BP/loss of muscle coordination/etc) however trazodone metabolites could also cause a false positive amphetamine result. Lyme negative. She was admitted for concern for catatonia. She does have a history of schizoaffective disorder and has required structured living arrangements in the past due to recurrent erratic behaviors and psychosis. She has improved with the medication changes below. She remains on antibiotic treatment for her UTI. Awaiting office of aging determination for placement. #AMS | Catatonia | Schizoaffective disorder - On doxepin, Seroquel and trazodone at baseline for mental health on admission - Psych consulted - Switched doxepin to 100mg HS to prevent sedation during the day. 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 Blood cultures obtained given history of bacteremia/osteo of chest following valve repair #Mitral valve repair -Noted hx 2010. +murmur on exam. - Stable telemetry, no CP reported - Echocardiogram similar to previous - Continues on baby aspirin daily/statin #B12 deficiency/low normal - Low normal in 200 IM x 2 ordered inpatient and plan to continue PO at discharge #Vitamin D deficiency - Level checked w/ depression- low. PO replacement ordered/will continue #HTN - with hypotension on admission, ?2nd to Seroquel along with high dose gabapentin/psych meds/dehydration. IVF ordered on admission with improvement - Adjustment to medications as outlined above and remains with Seroquel on hold #HLD- continue atorvastatin 20mg daily #Hypothyroidism -TSH wnl 1.4 and continues on levothyroxine #GERD - stable by report and continues on Protonix once daily #COPD - Hx emphysema. Duonebs available but denies SOB/97% on RA and has not utilized at all while inpatient DVT proph: Heparin SQ continued while inpatient Dispo: continued inpatient stay for eventual placement Ordered additional bowel regimen options Downgraded off telemetry Admission and Anticipated Discharge Date Admission Date: December 25, 2024 Subjective Patient seen and evaluated in bedside chair. She reports feeling constipated. She is passing gas. She denies any nausea or vomiting. She denies any urinary symptoms. She is well tolerating her diet. We discussed increasing her bowel regimen. No additional complaints or concerns at this time. Reviewed telemetry: NSR 80s90s. Physical Exam Physical Exam: General: No acute distress, nondiaphoretic, well-developed, well-nourished. Skin: Warm, dry. No peripheral edema noted. Small patch of dry skin noted on posterior scalp. Cardiac: Well-perfused. Rate in 80s. Pulm: Normal respiratory effort. 95% on room air. Abdominal: Soft, nontender, nondistended. Bowel sounds present. Neuro: A&O x3. No focal neurological deficits. Results & Data Results & Data Vital Signs (Past 12 Hours) Vital Signs Temp Pulse Pulse Resp BP BP Pulse Ox 01/09/25 11:12 98.1 F 84 18 128/69 95 01/09/25 08:18 98.1 F 92 H 16 90/60 L 94 01/09/25 05:36 83 01/09/25 04:14 98.8 F 91 H 20 110/72 92 01/09/25 00:18 98.8 F 89 20 118/72 96 O2 Del Method 01/09/25 11:12 Room Air 01/09/25 08:18 Room Air 01/09/25 05:36 01/09/25 04:14 Room Air 01/09/25 00:18 Room Air PG Care Time/CCT Total # of Minutes Spent Total Time Spent with Patient: Total time spent is greater than 50% in coordination of care (as documented) at patient's floor/unit and/or counseling patient: Coding Level of Care Code 22755 SUB INP/OBS CARE 235MIN Diagnoses Schizoaffective disorder F25.9 UTI (urinary tract infection) N39.0 AMS (altered mental status) R41.82 Encephalopathy acute G93.40 Schizophrenia, unspecified type F20.9 Schizophrenia type: unspecified COPD, moderate J44.9 (5) Schizophrenia Schizophrenia type: unspecified Qualified Code(s): F20.9 - Schizophrenia, unspecified"
[2025-01-09] MEDS: POLYETHYLENE (MIRALAX) 17 GM PACK PO PRN (13:57)
[2025-01-10] MEDS ORDERED: HYDROCORTISONE HC 2.5% CRM 30GM TUBE EXT PRN (10:04)
--- NOTE | 2025-01-10 14:52 | Hospitalist Progress Note ---
"Date of Service January 10, 2025 Assessment & Plan (1) Schizoaffective disorder: (2) UTI (urinary tract infection): (3) AMS (altered mental status): (4) Encephalopathy acute: (5) Schizophrenia: (6) COPD, moderate: Plan 64-year-old female who was brought in by her boyfriend for AMS x 3 days with unresponsiveness and rightward fixed gaze. CT head on admission negative for CVA. Tylenol/alcohol level negative but UDS + for MDMA - note if did take MDMA w/ psych meds, could be concerning for a serotonin syndrome (confusion, rapid HR/BP/loss of muscle coordination/etc) however trazodone metabolites could also cause a false positive amphetamine result. Lyme negative. She was admitted for concern for catatonia. She does have a history of schizoaffective disorder and has required structured living arrangements in the past due to recurrent erratic behaviors and psychosis. She has improved with the medication changes below. She remains on antibiotic treatment for her UTI. Awaiting office of aging determination for placement. #AMS | Catatonia | Schizoaffective disorder - On doxepin, Seroquel and trazodone at baseline for mental health on admission - Psych consulted - Switched doxepin to 100mg HS to prevent sedation during the day. 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 Blood cultures obtained given history of bacteremia/osteo of chest following valve repair #Constipation | Hemorrhoids - Continue bowel regimen. Bowel movement 01/10 with some red blood when wiping, likely due to her hemorrhoids - Hydrocortisone cream available as needed for hemorrhoids #Mitral valve repair -Noted hx 2010. +murmur on exam. - Stable telemetry, no CP reported - Echocardiogram similar to previous - Continues on baby aspirin daily/statin #B12 deficiency/low normal - Low normal in 200 IM x 2 ordered inpatient and plan to continue PO at discharge #Vitamin D deficiency - Level checked w/ depression- low. PO replacement ordered/will continue #HTN - with hypotension on admission, ?2nd to Seroquel along with high dose gabapentin/psych meds/dehydration. IVF ordered on admission with improvement - Adjustment to medications as outlined above and remains with Seroquel on hold #HLD- continue atorvastatin 20mg daily #Hypothyroidism -TSH wnl 1.4 and continues on levothyroxine #GERD - stable by report and continues on Protonix once daily #COPD - Hx emphysema. Duonebs available but denies SOB/97% on RA and has not utilized at all while inpatient DVT proph: Heparin SQ continued while inpatient Dispo: continued inpatient stay for eventual placement Ordered hydrocortisone cream Admission and Anticipated Discharge Date Admission Date: December 25, 2024 Subjective Attempted to round on patient x 2 today. In the morning, she was on the phone and asked me to come back later. In the afternoon, she was in the bathroom. Discussed with her RN who reports she had a BM earlier after multiple days of a bowel regimen. He did report some red blood when wiping after her BM. She does have a history of hemorrhoids. Hydrocortisone cream ordered as needed for hemorrhoids. No additional complaints or concerns voiced by RN regarding the patient. Physical Exam Physical Exam: General: No acute distress, nondiaphoretic, well-developed, well-nourished. Skin: Warm, dry. No peripheral edema noted. Small patch of dry skin noted on posterior scalp. Cardiac: Well-perfused. Rate in 80s. Pulm: Normal respiratory effort. 100% on room air. Abdominal: Soft, nontender, nondistended. Bowel sounds present. Neuro: A&O x3. No focal neurological deficits. Results & Data Results & Data Vital Signs (Past 12 Hours) Vital Signs Temp Pulse Resp BP BP Pulse Ox O2 Del Method 01/10/25 14:07 98.4 F 90 16 125/80 100 Room Air 01/10/25 09:02 129/75 01/10/25 07:07 97.7 F 98 H 18 92/62 L 95/60 L 94 Room Air PG Care Time/CCT Total # of Minutes Spent Total Time Spent with Patient: Total time spent is greater than 50% in coordination of care (as documented) at patient's floor/unit and/or counseling patient: Coding Level of Care Code 26814 SUB INP/OBS CARE 06/24MIN Diagnoses Schizoaffective disorder F25.9 UTI (urinary tract infection) N39.0 AMS (altered mental status) R41.82 Encephalopathy acute G93.40 Schizophrenia, unspecified type F20.9 Schizophrenia type: unspecified COPD, moderate J44.9 (5) Schizophrenia Schizophrenia type: unspecified Qualified Code(s): F20.9 - Schizophrenia, unspecified"
[2025-01-10] MEDS: GABAPENTIN 300 MG CAP PO STA (17:54)
--- NOTE | 2025-01-10 20:17 | CT Scan Report ---
CT ABDOMEN and PELVIS without INTRAVENOUS CONTRAST HISTORY: Abdominal pain TECHNIQUE: CT abdomen and pelvis without contrast. IV CONTRAST: None ENTERIC CONTRAST: None. COMPARISON: None FINDINGS: LOWER CHEST: Clear lungs LIVER: No focal lesion identified in this noncontrast study. Hepatomegaly GALLBLADDER/BILIARY: Surgically absent gallbladder. No abnormal biliary dilatation. SPLEEN: Unremarkable. PANCREAS: Unremarkable. ADRENALS: Unremarkable. KIDNEYS: Nonobstructing renal calculi bilaterally measuring 3 mm. Cortical cysts. No stones or hydronephrosis identified. PERITONEUM/RETROPERITONEUM. No lymphadenopathy by size criteria. No aortic aneurysm. Moderate atherosclerosis. GASTROINTESTINAL: No obstruction. Small hiatal hernia. Gastric wall thickening. Multiple loops of small bowel demonstrate inflammatory changes wall thickening and mild fluid filling. There is a large quantity of fluid within the colon. REPRODUCTIVE: No suspicious pelvic mass identified. Small calcified fibroid URINARY BLADDER: Inflammation with significant wall thickening BONES: No acute findings. IMPRESSION: Findings of gastroenteritis and diarrheal illness. Cystitis suggested with significant wall thickening of the urinary bladder. Nonobstructing renal calculi bilaterally measuring 3 mm. Electronically signed by Ronaldo Jaffe 01-10-2025 8:16 PM
[2025-01-11 09:07] LABS: Hematocrit (blood only) 43.1 % (37.0-47.0); Hemoglobin 14.3 g/dl (12.0-16.0); Mean Corpuscular Hemoglobin 30.8 pg (25.0-34.0); Mean Corpuscular Volume 92.7 fL (80.0-100.0); Platelet Count 227 K/uL (130-400); RDW Standard Deviation 54.0 fL (36.4-46.3); Red Blood Count 4.65 M/uL (4.20-5.40); White Blood Count 4.91 K/ul (4.8-10.8)
[2025-01-11] MEDS: GABAPENTIN 300 MG CAP PO STA (15:20)
--- NOTE | 2025-01-11 16:34 | Hospitalist Progress Note ---
Date of Service January 11, 2025 Assessment & Plan (1) Schizoaffective disorder: (2) UTI (urinary tract infection): (3) AMS (altered mental status): (4) Encephalopathy acute: (5) Schizophrenia: (6) COPD, moderate: Plan 64-year-old female who was brought in by her boyfriend for AMS x 3 days with unresponsiveness and rightward fixed gaze. CT head on admission negative for CVA. Tylenol/alcohol level negative but UDS + for MDMA - note if did take MDMA w/ psych meds, could be concerning for a serotonin syndrome (confusion, rapid HR/BP/loss of muscle coordination/etc) however trazodone metabolites could also cause a false positive amphetamine result. Lyme negative. She was admitted for concern for catatonia. She does have a history of schizoaffective disorder and has required structured living arrangements in the past due to recurrent erratic behaviors and psychosis. She has improved with the medication changes below. Awaiting office of aging determination for placement. #AMS | Catatonia | Schizoaffective disorder - On doxepin, Seroquel and trazodone at baseline for mental health on admission. Remains OFF both Gabapentin/Abilify at this time (was on 600mg TID + 100mg BID of gabapentin and 15mg abilify) and suspect contributing to above presentation w/ hypotension/toxic effects from mediations - Psych consulted - Switched doxepin to 100mg HS to prevent sedation during the day. Responded well to lorazepam challenge; Ativan now discontinued - Continue doxepin 100 mg HS - mentation appears much improved and sleeping/eating and calm/cooperative and reports feeling better - If sedation remains improved over next 1-2 weeks, consider restarting Seroquel 100mg HS given hx schizoaffective disorder vs option to trial different antipsychotic - With increased anxiety x few days - message sent to on-call psychiatrist for recommendations 01/11 - Awaiting placement for residential, 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 Blood cultures obtained given history of bacteremia/osteo of chest following valve repair #Constipation | Hemorrhoids - Continue bowel regimen. Bowel movement 01/10 with some red blood when wiping, likely due to her hemorrhoids - Hydrocortisone cream available as needed for hemorrhoids #Mitral valve repair -Noted hx 2010. +murmur on exam. - Stable telemetry, no CP reported, down graded to medical floor - Echocardiogram similar to previous - Continues on baby aspirin daily/statin #B12 deficiency/low normal - Low normal in 200 IM x 2 ordered inpatient and plan to continue PO at discharge #Vitamin D deficiency - Level checked w/ depression- low. PO replacement ordered/will continue #HTN - with hypotension on admission, ?2nd to Seroquel along with high dose gabapentin/psych meds/dehydration. IVF ordered on admission with improvement - Adjustment to medications as outlined above and remains with Seroquel on hold #HLD- continue atorvastatin 20mg daily #Hypothyroidism -TSH wnl 1.4 and continues on levothyroxine #GERD - stable by report and continues on Protonix once daily #COPD - Hx emphysema. Duonebs available but denies SOB/97% on RA and has not utilized at all while inpatient DVT proph: Heparin SQ continued while inpatient Dispo: continued inpatient stay for eventual placement Ordered gabapentin Messaged psychiatry Admission and Anticipated Discharge Date Admission Date: December 25, 2024 Subjective Patient seen and evaluated in bedside chair. She reports waxing/waning abdominal "pressure and pins/needles sensation." She correlates this with her increased anxiety. This occurred yesterday evening as well and she was given 1 dose of gabapentin which resolved her pins/needles and abdominal pressure. A CT A/P was obtained which showed findings of gastroenteritis and diarrheal illness. We discussed that I would reach out to psychiatry for medication recommendations for her anxiety. She denies any additional complaints or concerns at this time. Physical Exam Physical Exam: General: No acute distress, nondiaphoretic, well-developed, well-nourished. Skin: Warm, dry. No peripheral edema noted. Small patch of dry skin noted on posterior scalp. Cardiac: Well-perfused. Rate in 90s. Pulm: Normal respiratory effort. 94% on room air. Abdominal: Soft, nontender, nondistended. Bowel sounds present. Neuro: A&O x3. No focal neurological deficits. Results & Data Results & Data Vital Signs (Past 12 Hours) Vital Signs Temp Pulse Resp BP BP Pulse Ox O2 Del Method 01/11/25 15:20 97.7 F 97 H 18 136/84 94 Room Air 01/11/25 14:48 100 01/11/25 07:44 Room Air 01/11/25 07:34 97.7 F 75 17 129/80 98 Room Air O2 Flow Rate 01/11/25 15:20 01/11/25 14:48 0 01/11/25 07:44 01/11/25 07:34 Laboratory Results Reviewed CBC Diagnostic Findings Reviewed CT A/P PG Care Time/CCT Total # of Minutes Spent Total Time Spent with Patient: Total time spent is greater than 50% in coordination of care (as documented) at patient's floor/unit and/or counseling patient: Coding Level of Care Code 76540 SUB INP/OBS CARE 3/50MIN Diagnoses Schizoaffective disorder F25.9 UTI (urinary tract infection) N39.0 AMS (altered mental status) R41.82 Encephalopathy acute G93.40 Schizophrenia, unspecified type F20.9 Schizophrenia type: unspecified COPD, moderate J44.9 (5) Schizophrenia Schizophrenia type: unspecified Qualified Code(s): F20.9 - Schizophrenia, unspecified
[2025-01-12] MEDS: MELATONIN 3 MG TAB PO PRN (02:29)
--- NOTE | 2025-01-12 08:39 | Hospitalist Progress Note ---
Date of Service January 12, 2025 Assessment & Plan (1) Schizoaffective disorder: (2) UTI (urinary tract infection): (3) AMS (altered mental status): (4) Encephalopathy acute: (5) Schizophrenia: (6) COPD, moderate: Plan 64-year-old female who was brought in by her boyfriend for AMS x 3 days with unresponsiveness and rightward fixed gaze. CT head on admission negative for CVA. Tylenol/alcohol level negative but UDS + for MDMA - note if did take MDMA w/ psych meds, could be concerning for a serotonin syndrome (confusion, rapid HR/BP/loss of muscle coordination/etc) however trazodone metabolites could also cause a false positive amphetamine result. Lyme negative. She was admitted for concern for catatonia. She does have a history of schizoaffective disorder and has required structured living arrangements in the past due to recurrent erratic behaviors and psychosis. She has improved with the medication changes below. Awaiting office of aging determination for placement. #AMS | Catatonia | Schizoaffective disorder - On doxepin, Seroquel and trazodone at baseline for mental health on admission. Remains OFF both Gabapentin/Abilify at this time (was on 600mg TID + 100mg BID of gabapentin and 15mg abilify) and suspect contributing to above presentation w/ hypotension/toxic effects from mediations - Psych consulted - Switched doxepin to 100mg HS to prevent sedation during the day. 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 Continue B12 repletion as outlined below - 1 g IV mag given 01/12 #Urinary Tract infection - UA positive on admission and urine culture grew staph epidermidis given Ceftriaxone IV x 3 days, however repeat UA still appeared infected, do not suspect appropriate coverage w/ CTX - Repeat urine culture with Enterococcus faecalis, s/p course of Macrobid BID completed 01/12 - Blood cultures negative. Blood cultures obtained given history of bacteremia/osteo of chest following valve repair #Constipation | Hemorrhoids - Continue bowel regimen. Bowel movement 01/10 with some red blood when wiping, likely due to her hemorrhoids - Hydrocortisone cream available as needed for hemorrhoids #Mitral valve repair - Noted hx 2010. +murmur on exam. - Stable telemetry, no CP reported, down graded to medical floor - Echocardiogram similar to previous - Continues on baby aspirin daily/statin #B12 deficiency/low normal - Low normal in 200 IM x 2 ordered inpatient and plan to continue PO at discharge #Vitamin D deficiency - Level checked w/ depression- low. PO replacement ordered/will continue #HTN - with hypotension on admission, ?2nd to Seroquel along with high dose gabapentin/psych meds/dehydration. IVF ordered on admission with improvement - Adjustment to medications as outlined above and remains with Seroquel on hold #HLD- continue atorvastatin 20mg daily #Hypothyroidism -TSH wnl 1.4 and continues on levothyroxine #GERD - stable by report and continues on Protonix once daily #COPD - Hx emphysema. Duonebs available but denies SOB/97% on RA and has not utilized at all while inpatient DVT proph: Heparin SQ continued while inpatient Dispo: continued inpatient stay for eventual placement Discussed case with psychiatry Ordered gabapentin and IV Mag Restarted Seroquel Admission and Anticipated Discharge Date Admission Date: December 25, 2024 Subjective Patient seen and evaluated in the bedside chair. She reports ongoing waxing/w aning abdominal "pins/needles/pressure." She notes this comes and goes and is brought on by her anxiety. When she is able to control her anxiety, this sensation improves. We discussed what the psychiatrist recommended. She is understanding. She denies shortness of breath, nausea, headache, lightheadedness, dizziness, heart palpitations. No additional complaints or concerns at this time. Physical Exam Physical Exam: General: No acute distress, nondiaphoretic, well-developed, well-nourished. Skin: Warm, dry. No peripheral edema noted. Small patch of dry skin noted on posterior scalp. Cardiac: Regular rate and rhythm without murmurs gallops or rubs. Pulm: Clear to auscultation bilaterally without wheezes, rales or rhonchi. Normal respiratory effort. 96% on room air. Abdominal: Soft, nontender, nondistended. Bowel sounds present. Neuro: A&O x3. No focal neurological deficits. Results & Data Results & Data Vital Signs (Past 12 Hours) Vital Signs Temp Pulse Resp BP BP Pulse Ox O2 Del Method 01/12/25 07:12 98.4 F 94 H 16 108/74 98 Room Air 01/12/25 00:08 98.2 F 91 H 16 133/78 97 Room Air PG Care Time/CCT Total # of Minutes Spent Total Time Spent with Patient: Total time spent is greater than 50% in coordination of care (as documented) at patient's floor/unit and/or counseling patient: Coding Level of Care Code 83270 SUB INP/OBS CARE 3/50MIN Diagnoses Schizoaffective disorder F25.9 UTI (urinary tract infection) N39.0 AMS (altered mental status) R41.82 Encephalopathy acute G93.40 Schizophrenia, unspecified type F20.9 Schizophrenia type: unspecified COPD, moderate J44.9 (5) Schizophrenia Schizophrenia type: unspecified Qualified Code(s): F20.9 - Schizophrenia, unspecified
[2025-01-12] MEDS: GABAPENTIN 300 MG CAP PO SCH (12:07)
[2025-01-12] MEDS: MAGNESIUM SULFATE / D5W 1 GM/100 ML BAG IV ONE (13:09)
[2025-01-13 06:44] LABS: Hematocrit (blood only) 37.2 % (37.0-47.0); Hemoglobin 12.7 g/dl (12.0-16.0); Mean Corpuscular Hemoglobin 30.8 pg (25.0-34.0); Mean Corpuscular Volume 90.1 fL (80.0-100.0); Platelet Count 223 K/uL (130-400); RDW Standard Deviation 51.0 fL (36.4-46.3); Red Blood Count 4.13 M/uL (4.20-5.40); White Blood Count 6.81 K/ul (4.8-10.8)
[2025-01-13 07:06] LABS: Anion Gap 7.0 (3-11); Blood Urea Nitrogen 13.0 mg/dl (6-23); Calcium 9.3 mg/dl (8.6-10.3); Carbon Dioxide 29.0 mmol/L (21-32); Chloride 105.0 mmol/L (98-107); Creatinine Clr Calc Pharmacy 57.4 ml/min; Glucose 109.0 mg/dl (70-99(Fasting)); Magnesium 1.9 mg/dl (1.7-2.4); Potassium 4.1 mmol/L (3.5-5.1); Sodium 141.0 mmol/L (136-145)
--- NOTE | 2025-01-13 12:16 | Hospitalist Progress Note ---
"Date of Service January 13, 2025 Assessment & Plan (1) Schizoaffective disorder: (2) UTI (urinary tract infection): (3) AMS (altered mental status): (4) Encephalopathy acute: (5) Schizophrenia: (6) COPD, moderate: Plan 64-year-old female who was brought in by her boyfriend for AMS x 3 days with unresponsiveness and rightward fixed gaze. CT head on admission negative for CVA. Tylenol/alcohol level negative but UDS + for MDMA - note if did take MDMA w/ psych meds, could be concerning for a serotonin syndrome (confusion, rapid HR/BP/loss of muscle coordination/etc) however trazodone metabolites could also cause a false positive amphetamine result. Lyme negative. She was admitted for concern for catatonia. She does have a history of schizoaffective disorder and has required structured living arrangements in the past due to recurrent erratic behaviors and psychosis. She has improved with the medication changes below. Awaiting office of aging determination for placement. #AMS | Catatonia | Schizoaffective disorder - On doxepin, Seroquel and trazodone at baseline for mental health on admission. Remains OFF both Gabapentin/Abilify at this time (was on 600mg TID + 100mg BID of gabapentin and 15mg abilify) and suspect contributing to above presentation w/ hypotension/toxic effects from mediations - Psych consulted - Switched doxepin to 100mg HS to prevent sedation during the day. 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 Continue B12 repletion as outlined below. Possibly related to changes from psychiatry meds? - 1 g IV mag given 01/12 #Urinary Tract infection - UA positive on admission and urine culture grew staph epidermidis given Ceftriaxone IV x 3 days, however repeat UA still appeared infected, do not s uspect appropriate coverage w/ CTX - Repeat urine culture with Enterococcus faecalis, s/p course of Macrobid BID completed 01/12 - Blood cultures negative. Blood cultures obtained given history of ba cteremia/osteo of chest following valve repair #Constipation | Hemorrhoids - Continue bowel regimen. Bowel movement 01/10 with some red blood when wiping, likely due to her hemorrhoids - Hydrocortisone cream available as needed for hemorrhoids #Mitral valve repair - Noted hx 2010. +murmur on exam. - Stable telemetry, no CP reported, down graded to medical floor - Echocardiogram similar to previous - Continues on baby aspirin daily/statin #B12 deficiency/low normal - Low normal in 200 IM x 2 ordered inpatient and plan to continue PO at discharge #Vitamin D deficiency - Level checked w/ depression- low. PO replacement ordered/will continue #HTN - with hypotension on admission, ?2nd to Seroquel along with high dose gabapentin/psych meds/dehydration. IVF ordered on admission with improvement - Adjustment to medications as outlined above and remains with Seroquel on hold #HLD- continue atorvastatin 20mg daily #Hypothyroidism -TSH wnl 1.4 and continues on levothyroxine #GERD - stable by report and continues on Protonix once daily #COPD - Hx emphysema. Duonebs available as needed DVT proph: Heparin SQ continued while inpatient Dispo: continued inpatient stay for eventual placement Updated boyfriend at bedside Admission and Anticipated Discharge Date Admission Date: December 25, 2024 Subjective Patient seen and evaluated in the bedside chair with her boyfriend present. She reports feeling better overall today. Her abdominal pressure/paresthesias were improved earlier but she reports it is starting to return at this time. She states sometimes this sensation is in her legs, chest, and back as well. Continues to have waxing/waning symptoms. Will provide Tylenol and Maalox now and monitor. She reports she slept well overnight and has a good appetite. No additional complaints or concerns at this time. Physical Exam Physical Exam: General: No acute distress, nondiaphoretic, well-developed, well-nourished. Skin: Warm, dry. No peripheral edema noted. Small patch of dry skin noted on posterior scalp. Cardiac: Regular rate and rhythm without murmurs gallops or rubs. No pain on palpation of chest wall. Pulm: Clear to auscultation bilaterally without wheezes, rales or rhonchi. Normal respiratory effort. 98% on room air. Abdominal: Soft, nontender, nondistended. Bowel sounds present. Neuro: A&O x3. No focal neurological deficits. Results & Data Results & Data Vital Signs (Past 12 Hours) Vital Signs Temp Pulse Resp BP Pulse Ox O2 Del Method 01/13/25 07:40 Room Air 01/13/25 07:02 98.4 F 93 H 18 109/71 98 Room Air Laboratory Results Reviewed CBC Reviewed BMP, mag PG Care Time/CCT Total # of Minutes Spent Total Time Spent with Patient: Total time spent is greater than 50% in coordination of care (as documented) at patient's floor/unit and/or counseling patient: Coding Level of Care Code 97591 SUB INP/OBS CARE 2/35MIN Diagnoses Schizoaffective disorder F25.9 UTI (urinary tract infection) N39.0 AMS (altered mental status) R41.82 Encephalopathy acute G93.40 Schizophrenia, unspecified type F20.9 Schizophrenia type: unspecified COPD, moderate J44.9 (5) Schizophrenia Schizophrenia type: unspecified Qualified Code(s): F20.9 - Schizophrenia, unspecified"
--- NOTE | 2025-01-14 11:56 | Hospitalist Progress Note ---
Date of Service January 14, 2025 Assessment & Plan (1) Schizoaffective disorder: (2) UTI (urinary tract infection): (3) AMS (altered mental status): (4) Encephalopathy acute: (5) Schizophrenia: (6) COPD, moderate: Plan 64-year-old female who was brought in by her boyfriend for AMS x 3 days with unresponsiveness and rightward fixed gaze. CT head on admission negative for CVA. Tylenol/alcohol level negative but UDS + for MDMA - note if did take MDMA w/ psych meds, could be concerning for a serotonin syndrome (confusion, rapid HR/BP/loss of muscle coordination/etc) however trazodone metabolites could also cause a false positive amphetamine result. Lyme negative. She was admitted for concern for catatonia. She does have a history of schizoaffective disorder and has required structured living arrangements in the past due to recurrent erratic behaviors and psychosis. She has improved with the medication changes below. Awaiting office of aging determination for placement. #AMS | Catatonia | Schizoaffective disorder - On doxepin, Seroquel and trazodone at baseline for mental health on admission. Remains OFF both Gabapentin/Abilify at this time (was on 600mg TID + 100mg BID of gabapentin and 15mg abilify) and suspect contributing to above presentation w/ hypotension/toxic effects from mediations - Psych consulted - Switched doxepin to HS dosing to prevent sedation during the day. 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 Continue B12 repletion as outlined below. Possibly related to changes from psychiatry meds? - 1 g IV mag given 01/12 - Discussed with psychiatry again 8/17 given ongoing abdominal symptoms. Per up-to-date, <1% chance that doxepin can cause paresthesias suspect some somatic symptoms of her underlying psychosis but will adjust medications first Make gabapentin 300 mg HS and decrease doxepin to 50 mg HS If that is not effective, could add Seroquel 12.5 mg QAM and 12.5 Qnoon If still not effective, discontinue daytime Seroquel doses and adjust gabapentin to 100 mg TID - could titrate to 300 mg TID if tolerated and beneficial #Urinary Tract infection - UA positive on admission and urine culture grew staph epidermidis given Ceftriaxone IV x 3 days, however repeat UA still appeared infected, do not suspect appropriate coverage w/ CTX - Repeat urine culture with Enterococcus faecalis, s/p course of Macrobid BID completed 01/12 - Blood cultures negative. Blood cultures obtained given history of bacteremia/osteo of chest following valve repair #Constipation | Hemorrhoids - Continue bowel regimen. Bowel movement 01/10 with some red blood when wiping, likely due to her hemorrhoids - Hydrocortisone cream available as needed for hemorrhoids #Mitral valve repair - Noted hx 2010. +murmur on exam. - Stable telemetry, no CP reported, down graded to medical floor - Echocardiogram similar to previous - Continues on baby aspirin daily/statin #B12 deficiency/low normal - Low normal in 200 IM x 2 ordered inpatient and plan to continue PO at discharge #Vitamin D deficiency - Level checked w/ depression- low. PO replacement ordered /will continue #HTN - with hypotension on admission, ?2nd to Seroquel along with high dose gabapentin/psych meds/dehydration. IVF ordered on admission with improvement - Adjustment to medications as outlined above and remains with Seroquel on hold #HLD- continue atorvastatin 20mg daily #Hypothyroidism -TSH wnl 1.4 and continues on levothyroxine #GERD - stable by report and continues on Protonix once daily #COPD - Hx emphysema. Duonebs available as needed DVT proph: Heparin SQ continued while inpatient Dispo: continued inpatient stay for eventual placement Discussed case with psychiatry Adjusted medication doses/timing Admission and Anticipated Discharge Date Admission Date: December 25, 2024 Subjective Patient seen and evaluated in bedside chair. She reports continued abdominal symptoms of pressure and paresthesias that spread to her legs, back, arms. She still reports that it correlates with her anxiety. She does note that it is "tolerable." We discussed the recommendations from psychiatry. She is understanding and agreeable to the adjustments recommended. She continues to have a strong appetite, no N/V/D/C. She is sleeping well at night; she took melatonin last night which made her "sleep hard." No additional complaints or concerns at this time. Physical Exam Physical Exam: General: No acute distress, nondiaphoretic, well-developed, well-nourished. Skin: Warm, dry. No peripheral edema noted. Small patch of dry skin noted on posterior scalp. Cardiac: Regular rate and rhythm without murmurs gallops or rubs. No pain on palpation of chest wall. Pulm: Clear to auscultation bilaterally without wheezes, rales or rhonchi. Normal respiratory effort. 98% on room air. Abdominal: Soft, nontender, nondistended. Bowel sounds present. Neuro: A&O x3. No focal neurological deficits. Results & Data Results & Data Vital Signs (Past 12 Hours) Vital Signs Temp Pulse Resp BP Pulse Ox O2 Del Method 01/14/25 07:02 Room Air 01/14/25 07:00 98.1 F 93 H 16 109/64 98 Room Air PG Care Time/CCT Total # of Minutes Spent Total Time Spent with Patient: Total time spent is greater than 50% in coordination of care (as documented) at patient's floor/unit and/or counseling patient: Coding Level of Care Code 32623 SUB INP/OBS CARE 3/50MIN Diagnoses Schizoaffective disorder F25.9 UTI (urinary tract infection) N39.0 AMS (altered mental status) R41.82 Encephalopathy acute G93.40 Schizophrenia, unspecified type F20.9 Schizophrenia type: unspecified COPD, moderate J44.9 (5) Schizophrenia Schizophrenia type: unspecified Qualified Code(s): F20.9 - Schizophrenia, unspecified
[2025-01-14] MEDS: DOXEPIN HCL 50 MG CAPSULE PO SCH (21:03)
[2025-01-14] MEDS: GABAPENTIN 300 MG CAP PO SCH (21:04)
--- NOTE | 2025-01-15 09:22 | Hospitalist Progress Note ---
Date of Service January 15, 2025 Assessment & Plan (1) Schizoaffective disorder: Plan: On doxepin, Seroquel and trazodone at baseline for mental health on admission. Remains OFF both Gabapentin/Abilify at this time (was on 600mg TID + 100mg BID of gabapentin and 15mg abilify) and suspect contributing to above presentation w/ hypotension/toxic effects from mediations - Psych consulted - Switched doxepin to HS dosing to prevent sedation during the day. 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 CT head on admission negative for CVA. Tylenol/alcohol level negative but UDS + for MDMA - note if did take MDMA w/ psych meds, could be concerning for a serotonin syndrome (confusion, rapid HR/BP/loss of muscle coordination/etc) however trazodone metabolites could also cause a false positive amphetamine result. Lyme negative. She was admitted for concern for catatonia. She does have a history of schizoaffective disorder and has required structured living arrangements in the past due to recurrent erratic behaviors and psychosis. She has improved with the medication changes below. Awaiting office of aging determination for placement. Dispo: continued inpatient stay for eventual placement D Admission and Anticipated Discharge Date Admission Date: December 25, 2024 Subjective No events overnight. Pt resting comfortably in bed. Review of Systems Review of Systems: CONST: Negative for fever, body aches and chills. HENT: Negative for neck pain/stiffness, headache, congestion, sore throat, swelling. EYES: Negative for discharge/pain or vision changes. RESP: Negative for cough/hemoptysis and shortness of breath. CV: Negative chest pain, difficulty breathing, palpitations. ABD: Negative pain, nausea, vomiting. : Negative increase frequency, dysuria, blood in urine or stool. MUSC: Negative for muscle aches, edema. SKIN: Negative rash, lesions/sores. NEURO: Negative headache, dizziness, weakness. Physical Exam Physical Exam: GENERAL APPEARANCE NAD, activity normal for age, well developed/ well nourished, no cyanosis, pallor, or diaphoresis. EYES lids/conjunctiva normal. EARS/NOSE/THROAT Mucous membranes moist, nares normal, lips/teeth normal uvula midline without oral pharyngeal erythema, exudate or swelling TMs normal bilaterally. No lymphangitis/lymphedema. HEAD/NECK normocephalic atraumatic, no facial trauma, neck is supple. RESPIRATORY respiratory effort normal, speaks in full sentences, no tripod position, no accessory muscle use. Lungs clear to auscultation without rhonchi, wheezes, rales CARDIAC Regular rate and rhythm, no edema. ABDOMINAL Soft, ND/NT. No evidence of fluid wave. No pulsatile masses on exam, rebound tenderness, Donald sign or pain over Mcburney's point. MUSCLES/EXTREMITIES No abnormal range of motion, no swelling. SKIN Warm, pink and dry. No rashes, dermatoses, petechiae or lesions. NEUROLOGICAL Speech is clear and appropriate. Normal level of consciousness. Gait and coordination are normal. 5/5 strength in all extremities. PSYCH Normal mood and affect. Judgement/competence is appropriate Results & Data Results & Data Vital Signs (Past 12 Hours) Vital Signs Temp Pulse Resp BP BP Pulse Ox O2 Del Method 01/15/25 07:43 36.6 C 85 18 114/72 98 Room Air 01/14/25 23:45 102/68 01/14/25 22:38 36.9 C 85 18 91/64 L 99 Room Air PG Care Time/CCT Total # of Minutes Spent Total Time Spent with Patient: Total time spent is greater than 50% in coordination of care (as documented) at patient's floor/unit and/or counseling patient: Coding Level of Care Code 30678 SUB INP/OBS CARE MIN Diagnoses Schizoaffective disorder F25.9 UTI (urinary tract infection) N39.0 COPD, moderate J44.9 Hyperlipidemia E78.5 Hypothyroidism E03.9
[2025-01-15] MEDS: CALCIUM CARBONATE 500 MG CHEWABLE TAB PO PRN (14:25)
--- NOTE | 2025-01-16 09:05 | Hospitalist Progress Note ---
Date of Service January 16, 2025 Assessment & Plan (1) Schizoaffective disorder: Plan: On doxepin, Seroquel and trazodone at baseline for mental health on admission. Remains OFF both Gabapentin/Abilify at this time (was on 600mg TID + 100mg BID of gabapentin and 15mg abilify) and suspect contributing to above presentation w/ hypotension/toxic effects from mediations - Psych consulted - Switched doxepin to HS dosing to prevent sedation during the day. 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 CT head on admission negative for CVA. Tylenol/alcohol level negative but UDS + for MDMA - note if did take MDMA w/ psych meds, could be concerning for a serotonin syndrome (confusion, rapid HR/BP/loss of muscle coordination/etc) however trazodone metabolites could also cause a false positive amphetamine result. Lyme negative. She was admitted for concern for catatonia. She does have a history of schizoaffective disorder and has required structured living arrangements in the past due to recurrent erratic behaviors and psychosis. She has improved with the medication changes below. Awaiting office of aging determination for placement. Dispo: continued inpatient stay for eventual placement D Admission and Anticipated Discharge Date Admission Date: December 25, 2024 Subjective No events overnight. Pt resting comfortably in bed. Review of Systems Review of Systems: CONST: Negative for fever, body aches and chills. HENT: Negative for neck pain/stiffness, headache, congestion, sore throat, swelling. EYES: Negative for discharge/pain or vision changes. RESP: Negative for cough/hemoptysis and shortness of breath. CV: Negative chest pain, difficulty breathing, palpitations. ABD: Negative pain, nausea, vomiting. : Negative increase frequency, dysuria, blood in urine or stool. MUSC: Negative for muscle aches, edema. SKIN: Negative rash, lesions/sores. NEURO: Negative headache, dizziness, weakness. Physical Exam Physical Exam: GENERAL APPEARANCE NAD, activity normal for age, well developed/ well nourished, no cyanosis, pallor, or diaphoresis. EYES lids/conjunctiva normal. EARS/NOSE/THROAT Mucous membranes moist, nares normal, lips/teeth normal uvula midline without oral pharyngeal erythema, exudate or swelling TMs normal bilaterally. No lymphangitis/lymphedema. HEAD/NECK normocephalic atraumatic, no facial trauma, neck is supple. RESPIRATORY respiratory effort normal, speaks in full sentences, no tripod position, no accessory muscle use. Lungs clear to auscultation without rhonchi, wheezes, rales CARDIAC Regular rate and rhythm, no edema. ABDOMINAL Soft, ND/NT. No evidence of fluid wave. No pulsatile masses on exam, rebound tenderness, Donald sign or pain over Mcburney's point. MUSCLES/EXTREMITIES No abnormal range of motion, no swelling. SKIN Warm, pink and dry. No rashes, dermatoses, petechiae or lesions. NEUROLOGICAL Speech is clear and appropriate. Normal level of consciousness. Gait and coordination are normal. 5/5 strength in all extremities. PSYCH Normal mood and affect. Judgement/competence is appropriate Results & Data Results & Data Vital Signs (Past 12 Hours) Vital Signs Temp Pulse Resp BP Pulse Ox O2 Del Method 01/16/25 07:14 36.8 C 84 16 121/81 96 Room Air 01/15/25 22:14 36.8 C 94 H 16 112/80 95 Room Air PG Care Time/CCT Total # of Minutes Spent Total Time Spent with Patient: Total time spent is greater than 50% in coordination of care (as documented) at patient's floor/unit and/or counseling patient: Coding Level of Care Code 16576 SUB INP/OBS CARE MIN Diagnoses Schizoaffective disorder F25.9 UTI (urinary tract infection) N39.0 COPD, moderate J44.9 Hyperlipidemia E78.5 Hypothyroidism E03.9
--- NOTE | 2025-01-17 12:27 | Hospitalist Progress Note ---
Date of Service January 17, 2025 Assessment & Plan (1) Schizoaffective disorder: Plan: On doxepin, Seroquel and trazodone at baseline for mental health on admission. Remains OFF both Gabapentin/Abilify at this time (was on 600mg TID + 100mg BID of gabapentin and 15mg abilify) and suspect contributing to above presentation w/ hypotension/toxic effects from mediations - Psych consulted - Switched doxepin to HS dosing to prevent sedation during the day. 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 CT head on admission negative for CVA. Tylenol/alcohol level negative but UDS + for MDMA - note if did take MDMA w/ psych meds, could be concerning for a serotonin syndrome (confusion, rapid HR/BP/loss of muscle coordination/etc) however trazodone metabolites could also cause a false positive amphetamine result. Lyme negative. She was admitted for concern for catatonia. She does have a history of schizoaffective disorder and has required structured living arrangements in the past due to recurrent erratic behaviors and psychosis. She has improved with the medication changes below. Awaiting office of aging determination for placement. Dispo: continued inpatient stay for eventual placement D Admission and Anticipated Discharge Date Admission Date: December 25, 2024 Subjective Pt states she is feeling anxious this am. Review of Systems Review of Systems: CONST: Negative for fever, body aches and chills. HENT: Negative for neck pain/stiffness, headache, congestion, sore throat, swelling. EYES: Negative for discharge/pain or vision changes. RESP: Negative for cough/hemoptysis and shortness of breath. CV: Negative chest pain, difficulty breathing, palpitations. ABD: Negative pain, nausea, vomiting. : Negative increase frequency, dysuria, blood in urine or stool. MUSC: Negative for muscle aches, edema. SKIN: Negative rash, lesions/sores. NEURO: Negative headache, dizziness, weakness. Physical Exam Physical Exam: GENERAL APPEARANCE NAD, activity normal for age, well developed/ well nourished, no cyanosis, pallor, or diaphoresis. EYES lids/conjunctiva normal. EARS/NOSE/THROAT Mucous membranes moist, nares normal, lips/teeth normal uvula midline without oral pharyngeal erythema, exudate or swelling TMs normal bilaterally. No lymphangitis/lymphedema. HEAD/NECK normocephalic atraumatic, no facial trauma, neck is supple. RESPIRATORY respiratory effort normal, speaks in full sentences, no tripod position, no accessory muscle use. Lungs clear to auscultation without rhonchi, wheezes, rales CARDIAC Regular rate and rhythm, no edema. ABDOMINAL Soft, ND/NT. No evidence of fluid wave. No pulsatile masses on exam, rebound tenderness, Donald sign or pain over Mcburney's point. MUSCLES/EXTREMITIES No abnormal range of motion, no swelling. SKIN Warm, pink and dry. No rashes, dermatoses, petechiae or lesions. NEUROLOGICAL Speech is clear and appropriate. Normal level of consciousness. Gait and coordination are normal. 5/5 strength in all extremities. PSYCH Normal mood and affect. Judgement/competence is appropriate Results & Data Results & Data Vital Signs (Past 12 Hours) Vital Signs Temp Pulse Resp BP Pulse Ox O2 Del Method 01/17/25 07:06 36.8 C 97 H 18 118/79 97 Room Air PG Care Time/CCT Total # of Minutes Spent Total Time Spent with Patient: Total time spent is greater than 50% in coordination of care (as documented) at patient's floor/unit and/or counseling patient: Coding Level of Care Code 38207 SUB INP/OBS CARE 2/35MIN Diagnoses Schizoaffective disorder F25.9 UTI (urinary tract infection) N39.0 COPD, moderate J44.9 Hyperlipidemia E78.5 Hypothyroidism E03.9
[2025-01-17] MEDS: LORazepam 0.5 MG TAB PO PRN (12:38)
--- NOTE | 2025-01-18 11:02 | Hospitalist Progress Note ---
Date of Service January 18, 2025 Assessment & Plan (1) Schizoaffective disorder: Plan: On doxepin, Seroquel and trazodone at baseline for mental health on admission. Remains OFF both Gabapentin/Abilify at this time (was on 600mg TID + 100mg BID of gabapentin and 15mg abilify) and suspect contributing to above presentation w/ hypotension/toxic effects from mediations - Psych consulted - Switched doxepin to HS dosing to prevent sedation during the day. 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 CT head on admission negative for CVA. Tylenol/alcohol level negative but UDS + for MDMA - note if did take MDMA w/ psych meds, could be concerning for a serotonin syndrome (confusion, rapid HR/BP/loss of muscle coordination/etc) however trazodone metabolites could also cause a false positive amphetamine result. Lyme negative. She was admitted for concern for catatonia. She does have a history of schizoaffective disorder and has required structured living arrangements in the past due to recurrent erratic behaviors and psychosis. She has improved with the medication changes below. Awaiting office of aging determination for placement. Dispo: continued inpatient stay for eventual placement D Admission and Anticipated Discharge Date Admission Date: December 25, 2024 Subjective Pt was not responding this am, appears to be in her catatonic state. Was given ativan yesterday. Will d/c for now. Review of Systems Review of Systems: CONST: Negative for fever, body aches and chills. HENT: Negative for neck pain/stiffness, headache, congestion, sore throat, sw elling. EYES: Negative for discharge/pain or vision changes. RESP: Negative for cough/hemoptysis and shortness of breath. CV: Negative chest pain, difficulty breathing, palpitations. ABD: Negative pain, nausea, vomiting. : Negative increase frequency, dysuria, blood in urine or stool. MUSC: Negative for muscle aches, edema. SKIN: Negative rash, lesions/sores. NEURO: Negative headache, dizziness, weakness. Physical Exam Physical Exam: GENERAL APPEARANCE NAD, activity normal for age, well developed/ well nourished, no cyanosis, pallor, or diaphoresis. EYES lids/conjunctiva normal. EARS/NOSE/THROAT Mucous membranes moist, nares normal, lips/teeth normal uvula midline without oral pharyngeal erythema, exudate or swelling TMs normal bilaterally. No lymphangitis/lymphedema. HEAD/NECK normocephalic atraumatic, no facial trauma, neck is supple. RESPIRATORY respiratory effort normal, speaks in full sentences, no tripod position, no accessory muscle use. Lungs clear to auscultation without rhonchi, wheezes, rales CARDIAC Regular rate and rhythm, no edema. ABDOMINAL Soft, ND/NT. No evidence of fluid wave. No pulsatile masses on exam, rebound tenderness, Donald sign or pain over Mcburney's point. MUSCLES/EXTREMITIES No abnormal range of motion, no swelling. SKIN Warm, pink and dry. No rashes, dermatoses, petechiae or lesions. NEUROLOGICAL Speech is clear and appropriate. Normal level of consciousness. Gait and coordination are normal. 5/5 strength in all extremities. PSYCH Normal mood and affect. Judgement/competence is appropriate Results & Data Results & Data Vital Signs (Past 12 Hours) Vital Signs Temp Pulse Resp BP Pulse Ox O2 Del Method 01/18/25 07:48 36.8 C 86 15 121/75 96 Room Air PG Care Time/CCT Total # of Minutes Spent Total Time Spent with Patient: Total time spent is greater than 50% in coordination of care (as documented) at patient's floor/unit and/or counseling patient: Coding Level of Care Code 93288 SUB INP/OBS CARE 2/35MIN Diagnoses Schizoaffective disorder F25.9 UTI (urinary tract infection) N39.0 COPD, moderate J44.9 Hyperlipidemia E78.5 Hypothyroidism E03.9
--- NOTE | 2025-01-19 11:37 | Hospitalist Progress Note ---
Date of Service January 19, 2025 Assessment & Plan (1) Schizoaffective disorder: Plan: On doxepin, Seroquel and trazodone at baseline for mental health on admission. Remains OFF both Gabapentin/Abilify at this time (was on 600mg TID + 100mg BID of gabapentin and 15mg abilify) and suspect contributing to above presentation w/ hypotension/toxic effects from mediations - Psych consulted - Switched doxepin to HS dosing to prevent sedation during the day. 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 CT head on admission negative for CVA. Tylenol/alcohol level negative but UDS + for MDMA - note if did take MDMA w/ psych meds, could be concerning for a serotonin syndrome (confusion, rapid HR/BP/loss of muscle coordination/etc) however trazodone metabolites could also cause a false positive amphetamine result. Lyme negative. She was admitted for concern for catatonia. She does have a history of schizoaffective disorder and has required structured living arrangements in the past due to recurrent erratic behaviors and psychosis. She has improved with the medication changes below. Awaiting office of aging determination for placement. Dispo: continued inpatient stay for eventual placement D Admission and Anticipated Discharge Date Admission Date: December 25, 2024 Subjective Pt still catatonic this am. Review of Systems Review of Systems: CONST: Negative for fever, body aches and chills. HENT: Negative for neck pain/stiffness, headache, congestion, sore throat, swelling. EYES: Negative for discharge/pain or vision changes. RESP: Negative for cough/hemoptysis and shortness of breath. CV: Negative chest pain, difficulty breathing, palpitations. ABD: Negative pain, nausea, vomiting. : Negative increase frequency, dysuria, blood in urine or stool. MUSC: Negative for muscle aches, edema. SKIN: Negative rash, lesions/sores. NEURO: Negative headache, dizziness, weakness. Physical Exam Physical Exam: GENERAL APPEARANCE NAD, activity normal for age, well developed/ well nourished, no cyanosis, pallor, or diaphoresis. EYES lids/conjunctiva normal. EARS/NOSE/THROAT Mucous membranes moist, nares normal, lips/teeth normal uvula midline without oral pharyngeal erythema, exudate or swelling TMs normal bilaterally. No lymphangitis/lymphedema. HEAD/NECK normocephalic atraumatic, no facial trauma, neck is supple. RESPIRATORY respiratory effort normal, speaks in full sentences, no tripod position, no accessory muscle use. Lungs clear to auscultation without rhonchi, wheezes, rales CARDIAC Regular rate and rhythm, no edema. ABDOMINAL Soft, ND/NT. No evidence of fluid wave. No pulsatile masses on exam, rebound tenderness, Donald sign or pain over Mcburney's point. MUSCLES/EXTREMITIES No abnormal range of motion, no swelling. SKIN Warm, pink and dry. No rashes, dermatoses, petechiae or lesions. NEUROLOGICAL Speech is clear and appropriate. Normal level of consciousness. Gait and coordination are normal. 5/5 strength in all extremities. PSYCH Normal mood and affect. Judgement/competence is appropriate Results & Data Results & Data Vital Signs (Past 12 Hours) Vital Signs Temp Pulse Resp BP Pulse Ox O2 Del Method 01/19/25 08:03 37.0 C 86 16 130/83 98 Room Air PG Care Time/CCT Total # of Minutes Spent Total Time Spent with Patient: Total time spent is greater than 50% in coordination of care (as documented) at patient's floor/unit and/or counseling patient: Coding Level of Care Code 45140 SUB INP/OBS CARE 2/35MIN Diagnoses Schizoaffective disorder F25.9 UTI (urinary tract infection) N39.0 COPD, moderate J44.9 Hyperlipidemia E78.5 Hypothyroidism E03.9
--- NOTE | 2025-01-19 13:58 | Electrocardiogram Report ---
Test Reason : Blood Pressure : */* mmHG Vent. 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
--- NOTE | 2025-01-20 10:00 | Hospitalist Progress Note ---
Date of Service January 20, 2025 Assessment & Plan (1) Schizoaffective disorder: Plan: On doxepin, Seroquel and trazodone at baseline for mental health on admission. Remains OFF both Gabapentin/Abilify at this time (was on 600mg TID + 100mg BID of gabapentin and 15mg abilify) and suspect contributing to above presentation w/ hypotension/toxic effects from mediations - Psych consulted - Switched doxepin to HS dosing to prevent sedation during the day. 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 CT head on admission negative for CVA. Tylenol/alcohol level negative but UDS + for MDMA - note if did take MDMA w/ psych meds, could be concerning for a serotonin syndrome (confusion, rapid HR/BP/loss of muscle coordination/etc) however trazodone metabolites could also cause a false positive amphetamine result. Lyme negative. She was admitted for concern for catatonia. She does have a history of schizoaffective disorder and has required structured living arrangements in the past due to recurrent erratic behaviors and psychosis. She has improved with the medication changes below. Awaiting office of aging determination for placement. Dispo: continued inpatient stay for eventual placement D Admission and Anticipated Discharge Date Admission Date: December 25, 2024 Subjective Pt alert and awake this am. No events overnight. Review of Systems Review of Systems: CONST: Negative for fever, body aches and chills. HENT: Negative for neck pain/stiffness, headache, congestion, sore throat, swelling. EYES: Negative for discharge/pain or vision changes. RESP: Negative for cough/hemoptysis and shortness of breath. CV: Negative chest pain, difficulty breathing, palpitations. ABD: Negative pain, nausea, vomiting. : Negative increase frequency, dysuria, blood in urine or stool. MUSC: Negative for muscle aches, edema. SKIN: Negative rash, lesions/sores. NEURO: Negative headache, dizziness, weakness. Physical Exam Physical Exam: GENERAL APPEARANCE NAD, activity normal for age, well developed/ well nourished, no cyanosis, pallor, or diaphoresis. EYES lids/conjunctiva normal. EARS/NOSE/THROAT Mucous membranes moist, nares normal, lips/teeth normal uvula midline without oral pharyngeal erythema, exudate or swelling TMs normal bilaterally. No lymphangitis/lymphedema. HEAD/NECK normocephalic atraumatic, no facial trauma, neck is supple. RESPIRATORY respiratory effort normal, speaks in full sentences, no tripod position, no accessory muscle use. Lungs clear to auscultation without rhonchi, wheezes, rales CARDIAC Regular rate and rhythm, no edema. ABDOMINAL Soft, ND/NT. No evidence of fluid wave. No pulsatile masses on exam, rebound tenderness, Donald sign or pain over Mcburney's point. MUSCLES/EXTREMITIES No abnormal range of motion, no swelling. SKIN Warm, pink and dry. No rashes, dermatoses, petechiae or lesions. NEUROLOGICAL Speech is clear and appropriate. Normal level of consciousness. Gait and coordination are normal. 5/5 strength in all extremities. PSYCH Normal mood and affect. Judgement/competence is appropriate Results & Data Results & Data Vital Signs (Past 12 Hours) Vital Signs Temp Pulse Resp BP BP Pulse Ox O2 Del Method 01/20/25 07:46 37.1 C 80 16 122/79 96 Room Air 01/19/25 23:14 37.1 C 79 17 138/82 98 Room Air PG Care Time/CCT Total # of Minutes Spent Total Time Spent with Patient: Total time spent is greater than 50% in coordination of care (as documented) at patient's floor/unit and/or counseling patient: Coding Level of Care Code 47715 SUB INP/OBS CARE MIN Diagnoses Schizoaffective disorder F25.9 UTI (urinary tract infection) N39.0 COPD, moderate J44.9 Hyperlipidemia E78.5 Hypothyroidism E03.9
[2025-01-21] MEDS ORDERED: ALUMINUM/MAGNESIUM/SIMETH (MAALOX MAX) 30 ML UDC PO PRN (09:03)
--- NOTE | 2025-01-21 09:05 | Hospitalist Progress Note ---
Date of Service January 21, 2025 Assessment & Plan (1) Schizoaffective disorder: Plan: On doxepin, Seroquel and trazodone at baseline for mental health on admission. Remains OFF both Gabapentin/Abilify at this time (was on 600mg TID + 100mg BID of gabapentin and 15mg abilify) and suspect contributing to above presentation w/ hypotension/toxic effects from mediations - Psych consulted - Switched doxepin to HS dosing to prevent sedation during the day. 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 CT head on admission negative for CVA. Tylenol/alcohol level negative but UDS + for MDMA - note if did take MDMA w/ psych meds, could be concerning for a serotonin syndrome (confusion, rapid HR/BP/loss of muscle coordination/etc) however trazodone metabolites could also cause a false positive amphetamine result. Lyme negative. She was admitted for concern for catatonia. She does have a history of schizoaffective disorder and has required structured living arrangements in the past due to recurrent erratic behaviors and psychosis. She has improved with the medication changes below. Awaiting office of aging determination for placement. Dispo: continued inpatient stay for eventual placement Admission and Anticipated Discharge Date Admission Date: December 25, 2024 Subjective No events overnight. Pt resting in bed. Review of Systems Review of Systems: CONST: Negative for fever, body aches and chills. HENT: Negative for neck pain/stiffness, headache, congestion, sore throat, swelling. EYES: Negative for discharge/pain or vision changes. RESP: Negative for cough/hemoptysis and shortness of breath. CV: Negative chest pain, difficulty breathing, palpitations. ABD: Negative pain, nausea, vomiting. : Negative increase frequency, dysuria, blood in urine or stool. MUSC: Negative for muscle aches, edema. SKIN: Negative rash, lesions/sores. NEURO: Negative headache, dizziness, weakness. Physical Exam Physical Exam: GENERAL APPEARANCE NAD, activity normal for age, well developed/ well nourished, no cyanosis, pallor, or diaphoresis. EYES lids/conjunctiva normal. EARS/NOSE/THROAT Mucous membranes moist, nares normal, lips/teeth normal uvula midline without oral pharyngeal erythema, exudate or swelling TMs normal bilaterally. No lymphangitis/lymphedema. HEAD/NECK normocephalic atraumatic, no facial trauma, neck is supple. RESPIRATORY respiratory effort normal, speaks in full sentences, no tripod position, no accessory muscle use. Lungs clear to auscultation without rhonchi, wheezes, rales CARDIAC Regular rate and rhythm, no edema. ABDOMINAL Soft, ND/NT. No evidence of fluid wave. No pulsatile masses on exam, rebound tenderness, Donald sign or pain over Mcburney's point. MUSCLES/EXTREMITIES No abnormal range of motion, no swelling. SKIN Warm, pink and dry. No rashes, dermatoses, petechiae or lesions. NEUROLOGICAL Speech is clear and appropriate. Normal level of consciousness. Gait and coordination are normal. 5/5 strength in all extremities. PSYCH Normal mood and affect. Judgement/competence is appropriate Results & Data Results & Data Vital Signs (Past 12 Hours) Vital Signs Temp Pulse Resp BP Pulse Ox O2 Del Method 01/21/25 07:13 36.7 C 99 H 18 123/79 97 Room Air PG Care Time/CCT Total # of Minutes Spent Total Time Spent with Patient: Total time spent is greater than 50% in coordination of care (as documented) at patient's floor/unit and/or counseling patient: Coding Level of Care Code 21101 SUB INP/OBS CARE 2/35MIN Diagnoses Schizoaffective disorder F25.9 UTI (urinary tract infection) N39.0 COPD, moderate J44.9 Hyperlipidemia E78.5 Hypothyroidism E03.9
--- NOTE | 2025-01-22 12:13 | Hospitalist Progress Note ---
Date of Service January 22, 2025 Assessment & Plan (1) Schizoaffective disorder: Plan: On doxepin, Seroquel and trazodone at baseline for mental health on admission. Remains OFF both Gabapentin/Abilify at this time (was on 600mg TID + 100mg BID of gabapentin and 15mg abilify) and suspect contributing to above presentation w/ hypotension/toxic effects from mediations - Psych consulted - Switched doxepin to HS dosing to prevent sedation during the day. 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 CT head on admission negative for CVA. Tylenol/alcohol level negative but UDS + for MDMA - note if did take MDMA w/ psych meds, could be concerning for a serotonin syndrome (confusion, rapid HR/BP/loss of muscle coordination/etc) however trazodone metabolites could also cause a false positive amphetamine result. Lyme negative. She was admitted for concern for catatonia. She does have a history of schizoaffective disorder and has required structured living arrangements in the past due to recurrent erratic behaviors and psychosis. She has improved with the medication changes below. Awaiting office of aging determination for placement. Dispo: continued inpatient stay for eventual placement Admission and Anticipated Discharge Date Admission Date: December 25, 2024 Subjective Unchanged. Walking around the room. RN at bedside. Patient denies any symptoms or complaints Tells me she feels all right Review of Systems Review of Systems: CONST: Negative for fever, body aches and chills. HENT: Negative for neck pain/stiffness, headache, congestion, sore throat, swelling. EYES: Negative for discharge/pain or vision changes. RESP: Negative for cough/hemoptysis and shortness of breath. CV: Negative chest pain, difficulty breathing, palpitations. ABD: Negative pain, nausea, vomiting. : Negative increase frequency, dysuria, blood in urine or stool. MUSC: Negative for muscle aches, edema. SKIN: Negative rash, lesions/sores. NEURO: Negative headache, dizziness, weakness. Physical Exam Physical Exam: GENERAL APPEARANCE NAD, activity normal for age, well developed/ well nourished, no cyanosis, pallor, or diaphoresis. EYES lids/conjunctiva normal. EARS/NOSE/THROAT Mucous membranes moist, nares normal, lips/teeth normal uvula midline without oral pharyngeal erythema, exudate or swelling TMs normal bilaterally. No lymphangitis/lymphedema. HEAD/NECK normocephalic atraumatic, no facial trauma, neck is supple. RESPIRATORY respiratory effort normal, speaks in full sentences, no tripod position, no accessory muscle use. Lungs clear to auscultation without rhonchi, wheezes, rales CARDIAC Regular rate and rhythm, no edema. ABDOMINAL Soft, ND/NT. No evidence of fluid wave. No pulsatile masses on exam, rebound tenderness, Donald sign or pain over Mcburney's point. MUSCLES/EXTREMITIES No abnormal range of motion, no swelling. SKIN Warm, pink and dry. No rashes, dermatoses, petechiae or lesions. NEUROLOGICAL Speech is clear and appropriate. Normal level of consciousness. Gait and coordination are normal. 5/5 strength in all extremities. PSYCH Normal mood and affect. Judgement/competence is appropriate Results & Data Results & Data Vital Signs (Past 12 Hours) Vital Signs Temp Pulse Resp BP Pulse Ox O2 Del Method 01/22/25 08:07 36.9 C 84 16 129/83 99 Room Air 01/22/25 08:05 Room Air PG Care Time/CCT Total # of Minutes Spent Total Time Spent with Patient: Total time spent is greater than 50% in coordination of care (as documented) at patient's floor/unit and/or counseling patient: Coding Level of Care Code 71673 SUB INP/OBS CARE MIN Diagnoses Schizoaffective disorder F25.9 UTI (urinary tract infection) N39.0 COPD, moderate J44.9 Hyperlipidemia E78.5 Hypothyroidism E03.9
--- NOTE | 2025-01-23 11:28 | Hospitalist Progress Note ---
Date of Service January 23, 2025 Assessment & Plan (1) Schizoaffective disorder: Plan: On doxepin, Seroquel and trazodone at baseline for mental health on admission. Remains OFF both Gabapentin/Abilify at this time (was on 600mg TID + 100mg BID of gabapentin and 15mg abilify) and suspect contributing to above presentation w/ hypotension/toxic effects from mediations - Psych consulted - Switched doxepin to HS dosing to prevent sedation during the day. 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 CT head on admission negative for CVA. Tylenol/alcohol level negative but UDS + for MDMA - note if did take MDMA w/ psych meds, could be concerning for a serotonin syndrome (confusion, rapid HR/BP/loss of muscle coordination/etc) however trazodone metabolites could also cause a false positive amphetamine result. Lyme negative. She was admitted for concern for catatonia. She does have a history of schizoaffective disorder and has required structured living arrangements in the past due to recurrent erratic behaviors and psychosis. She has improved with the medication changes below. Awaiting office of aging determination for placement. Dispo: continued inpatient stay for eventual placement Admission and Anticipated Discharge Date Admission Date: December 25, 2024 Subjective Sitting up in a chair. Denies any symptoms or complaints. In good spirits Review of Systems Review of Systems: CONST: Negative for fever, body aches and chills. HENT: Negative for neck pain/stiffness, headache, congestion, sore throat, swelling. EYES: Negative for discharge/pain or vision changes. RESP: Negative for cough/hemoptysis and shortness of breath. CV: Negative chest pain, difficulty breathing, palpitations. ABD: Negative pain, nausea, vomiting. : Negative increase frequency, dysuria, blood in urine or stool. MUSC: Negative for muscle aches, edema. SKIN: Negative rash, lesions/sores. NEURO: Negative headache, dizziness, weakness. Physical Exam Physical Exam: GENERAL APPEARANCE NAD, activity normal for age, well developed/ well nourished, no cyanosis, pallor, or diaphoresis. EYES lids/conjunctiva normal. EARS/NOSE/THROAT Mucous membranes moist, nares normal, lips/teeth normal uvula midline without oral pharyngeal erythema, exudate or swelling TMs normal bilaterally. No lymphangitis/lymphedema. HEAD/NECK normocephalic atraumatic, no facial trauma, neck is supple. RESPIRATORY respiratory effort normal, speaks in full sentences, no tripod position, no accessory muscle use. Lungs clear to auscultation without rhonchi, wheezes, rales CARDIAC Regular rate and rhythm, no edema. ABDOMINAL Soft, ND/NT. No evidence of fluid wave. No pulsatile masses on exam, rebound tenderness, Donald sign or pain over Mcburney's point. MUSCLES/EXTREMITIES No abnormal range of motion, no swelling. SKIN Warm, pink and dry. No rashes, dermatoses, petechiae or lesions. NEUROLOGICAL Speech is clear and appropriate. Normal level of consciousness. Gait and coordination are normal. 5/5 strength in all extremities. PSYCH Normal mood and affect. Judgement/competence is appropriate Results & Data Results & Data Vital Signs (Past 12 Hours) Vital Signs Temp Pulse Resp BP BP Pulse Ox O2 Del Method 01/23/25 07:14 36.5 C 100 H 16 118/79 98 Room Air 01/23/25 00:01 36.7 C 101 H 18 98/65 L 96 Room Air PG Care Time/CCT Total # of Minutes Spent Total Time Spent with Patient: Total time spent is greater than 50% in coordination of care (as documented) at patient's floor/unit and/or counseling patient: Coding Level of Care Code 01130 SUB INP/OBS CARE MIN Diagnoses Schizoaffective disorder F25.9 UTI (urinary tract infection) N39.0 COPD, moderate J44.9 Hyperlipidemia E78.5 Hypothyroidism E03.9
--- NOTE | 2025-01-24 12:23 | Hospitalist Progress Note ---
Date of Service January 24, 2025 Assessment & Plan (1) Schizoaffective disorder: Plan: On doxepin, Seroquel and trazodone at baseline for mental health on admission. Remains OFF both Gabapentin/Abilify at this time (was on 600mg TID + 100mg BID of gabapentin and 15mg abilify) and suspect contributing to above presentation w/ hypotension/toxic effects from mediations - Psych consulted - Switched doxepin to HS dosing to prevent sedation during the day. 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 psych called back to evalute for recurrent catatonia (2) UTI (urinary tract infection): Plan: - UA positive on admission and urine culture grew staph epidermidis given Ceftriaxone IV x 3 days, however repeat UA still appeared infected, do not suspect appropriate coverage w/ CTX - Repeat urine culture with Enterococcus faecalis, s/p course of Macrobid BID completed 01/12 (3) COPD, moderate: Plan: -Duonebs prn (4) Hyperlipidemia: Plan: -atrovastatin (5) Hypothyroidism: Plan: -levothyroxine Plan 64-year-old female who was brought in by her boyfriend for AMS x 3 days with unresponsiveness and rightward fixed gaze. CT head on admission negative for CVA. Tylenol/alcohol level negative but UDS + for MDMA - note if did take MDMA w/ psych meds, could be concerning for a serotonin syndrome (confusion, rapid HR/BP/loss of muscle coordination/etc) however trazodone metabolites could also cause a false positive amphetamine result. Lyme negative. She was admitted for concern for catatonia. She does have a history of schizoaffective disorder and has required structured living arrangements in the past due to recurrent erratic behaviors and psychosis. She has improved with the medication changes below. Awaiting office of aging determination for placement. Dispo: continued inpatient stay for eventual placement Admission and Anticipated Discharge Date Admission Date: December 25, 2024 Subjective minimally interactive today concern for worsening catatonia d/w nursing staff Review of Systems Review of Systems: CONST: Negative for fever, body aches and chills. HENT: Negative for neck pain/stiffness, headache, congestion, sore throat, swelling. EYES: Negative for discharge/pain or vision changes. RESP: Negative for cough/hemoptysis and shortness of breath. CV: Negative chest pain, difficulty breathing, palpitations. ABD: Negative pain, nausea, vomiting. : Negative increase frequency, dysuria, blood in urine or stool. MUSC: Negative for muscle aches, edema. SKIN: Negative rash, lesions/sores. NEURO: Negative headache, dizziness, weakness. Physical Exam Physical Exam: GENERAL APPEARANCE NAD, activity normal for age, well developed/ well nourished, no cyanosis, pallor, or diaphoresis. EYES lids/conjunctiva normal. EARS/NOSE/THROAT Mucous membranes moist, nares normal, lips/teeth normal uvula midline without oral pharyngeal erythema, exudate or swelling TMs normal bilaterally. No lymphangitis/lymphedema. HEAD/NECK normocephalic atraumatic, no facial trauma, neck is supple. RESPIRATORY respiratory effort normal, speaks in full sentences, no tripod position, no accessory muscle use. Lungs clear to auscultation without rhonchi, wheezes, rales CARDIAC Regular rate and rhythm, no edema. ABDOMINAL Soft, ND/NT. No evidence of fluid wave. No pulsatile masses on exam, rebound tenderness, Donald sign or pain over Mcburney's point. MUSCLES/EXTREMITIES No abnormal range of motion, no swelling. SKIN Warm, pink and dry. No rashes, dermatoses, petechiae or lesions. NEUROLOGICAL Speech is clear and appropriate. Normal level of consciousness. Gait and coordination are normal. 5/5 strength in all extremities. PSYCH Normal mood and affect. Judgement/competence is appropriate Results & Data Results & Data Vital Signs (Past 12 Hours) Vital Signs Temp Pulse Resp BP Pulse Ox O2 Del Method 01/24/25 11:29 37.0 C 89 16 104/74 98 Room Air 01/24/25 08:41 37.0 C 90 16 100/68 97 Room Air 01/24/25 08:04 36.9 C 86 15 94/64 L 98 Room Air PG Care Time/CCT Total # of Minutes Spent Total Time Spent with Patient: Total time spent is greater than 50% in coordination of care (as documented) at patient's floor/unit and/or counseling patient: Coding Level of Care Code 75472 SUB INP/OBS CARE Diagnoses Schizoaffective disorder F25.9 UTI (urinary tract infection) N39.0 COPD, moderate J44.9 Hyperlipidemia E78.5 Hypothyroidism E03.9
--- NOTE | 2025-01-25 12:50 | Progress Note ---
Date of Service January 25, 2025 Assessment & Plan (1) Catatonia: (2) Schizoaffective disorder: (3) AMS (altered mental status): Plan 01/25/2025: -recommend starting Melatonin 3 mg PO QHS nightly and titrating appropriately 01/05/2025: -Discontinue ativan (she never received any doses) -Continue with doxepin at HS -If sedation remains improved over next 1-2 weeks then consider restarting Seroquel 100mg HS given history of schizoaffective disorder vs option to trial alternative antipsychotic (sees Dr. Sanchez as an outpatient for psychiatric management) -VAIBHAV signed for Dr. Sanchez, will fax his office notes from this hospitalization 01/03/2025: -Discontinue Seroquel and trazodone to lessen risks for hypotension -Move doxepin from morning to HS given sedating effects -Start ativan 0.5mg IV TID or 1mg IV TID with goal of consistent administration. 01/02/25: Trial discontinuation of lorazepam and psychiatry to assess if symptoms persist 12/29/24: Decrease lorazepam to 0.5mg BID IV/PO, then tomorrow 0.5mg HS, then d/c. 12/28/24: Lorazepam 0.5mg QAM, 0.5mg Q2pm, 1mg HS IV/PO 12/27/24: Transition to oral Lorazepam 1mg TID 12/26/24: Lorazepam IV 1mg TID, can decrease dose if hypotensive, bradypneic, or causing excess sedation Continue home Trazodone 100mg HS, Doxepin 100mg HS, Quetiapine XR 100mg QPM Psychiatry consults to follow Admission and Anticipated Discharge Date Admission Date: December 25, 2024 Subjective Patient evaluated this morning on the medical unit. Regarding her mood she stated "I still have anxiety and tingling all over my body." The symptoms of tingling reportedly triggered by her anxiety. Patient otherwise had no complaints/concerns she reports experiencing depression sometimes. She denied l ow energy, low appetite, poor concentration, hopelessness, worthlessness, excessive guilt, suicidal/homicidal ideation, and auditory/visual hallucinations. When reviewing with the patient the concerns of her primary team, the patient noted, "I do not know, because I have not been sleeping." The patient complaint, "I just cannot concentrate to go to sleep" noting that melatonin has helped in the past. Treatment team encouraged the patient to communicate this to her primary team instead of resorting to selective mutism. Results & Data Vital Signs (Past 12 Hours) Vital Signs Temp Pulse Resp BP Pulse Ox O2 Del Method 01/25/25 07:35 Room Air 01/25/25 07:16 36.7 C 78 16 137/84 96 Room Air
--- NOTE | 2025-01-25 13:10 | Psychiatric Progress Note ---
Date of Service January 25, 2025 Impression / Recommendations Impression 64 y/o F h/o Schizoaffective disorder, COPD, HTN, HLD, who presents with AMS in the context of active UTI. Psychiatry consulted for evaluation. Pt has h/o Schizoaffective disorder, historically has required structured living due to recurrent erratic behaviors, psychosis. She presents poor insight into her condition. A: No evidence for catatonia at this point. Patient reported having difficulty with her sleep and experiencing morning and daytime fatigue that she believes contributed to her poor cooperation with the primary team. The negative symptoms previously observed are more likely due to to selective mutism and involuntary lack of cooperation. Given history of psychosis consider restarting Seroquel to help manage her insomnia. Overall, I spent a total of 25 minutes with this case including review of chart records, nursing report, review of lab work, direct evaluation of the patient at bedside, discussion of the patient with the hospitalist provider, discussion with the psychiatric liaison during clinical rounds, and documentation in the electronic health record. (1) Catatonia: (2) Schizoaffective disorder: (3) AMS (altered mental status): Plan 01/25/2025: -recommend starting Melatonin 3 mg PO QHS nightly due to report of historical efficacy and titrating appropriately -Continue Seroquel 100 mg p.o. daily for more immediate management of insomnia 01/05/2025: -Discontinue ativan (she never received any doses) -Continue with doxepin at HS -If sedation remains improved over next 1-2 weeks then consider restarting Seroquel 100mg HS given history of schizoaffective disorder vs option to trial alternative antipsychotic (sees Dr. Snachez as an outpatient for psychiatric management) -VAIBHAV signed for Dr. Sanchez, will fax his office notes from this hospitalization 01/03/2025: -Discontinue Seroquel and trazodone to lessen risks for hypotension -Move doxepin from morning to HS given sedating effects -Start ativan 0.5mg IV TID or 1mg IV TID with goal of consistent administration. 01/02/25: Trial discontinuation of lorazepam and psychiatry to assess if symptoms persist 12/29/24: Decrease lorazepam to 0.5mg BID IV/PO, then tomorrow 0.5mg HS, then d/c. 12/28/24: Lorazepam 0.5mg QAM, 0.5mg Q2pm, 1mg HS IV/PO 12/27/24: Transition to oral Lorazepam 1mg TID 12/26/24: Lorazepam IV 1mg TID, can decrease dose if hypotensive, bradypneic, or causing excess sedation Continue home Trazodone 100mg HS, Doxepin 100mg HS, Quetiapine XR 100mg QPM Psychiatry consults to follow Interval History Identifying Information 64 y/o F h/o Schizoaffective disorder, COPD, HTN, HLD, who presents with AMS in the context of active UTI. Psychiatry consulted for evaluation. Chief Complaint "I still have anxiety and tingling all over my body." Subjective Subjective Patient evaluated this morning on the medical unit. Regarding her mood she stated "I still have anxiety and tingling all over my body." The symptoms of tingling reportedly triggered by her anxiety. Patient otherwise had no complaints/concerns she reports experiencing depression sometimes. She denied low energy, low appetite, poor concentration, hopelessness, worthlessness, excessive guilt, suicidal/homicidal ideation, and auditory/visual hallucinations. When reviewing with the patient the concerns of her primary team, the patient noted, "I do not know, because I have not been sleeping." The patient complaint, "I just cannot concentrate to go to sleep" noting that melatonin has helped in the past. Treatment team encouraged the patient to communicate this to her primary team instead of resorting to selective mutism. Patient was encouraged to resume compliance with her psychotropic medications to assist in managing her residual anxiety. She expressed her agreement. Physical Exam Psychiatric Orientation: alert and oriented x 3 Apperance: appropriately dressed and appropriately groomed Eye Contact: good eye contact Motor Behavior: no abnormal motor movements Speech: normal rate/rhythm/volume of speech Affect: euthymic affect and mood congruent with affect; no constricted affect Mood: + anxious mood ("I still have anxiety"); no depressed mood Thought Process: linear/logical thought process Thought Content: reality based without delusions Suicidal Thoughts: denies suicidal thoughts Homicidal Thoughts: denies homicidal thoughts Hallucinations: no auditory hallucinations and no visual hallucinations Cognition: recent memory grossly intact, remote memory grossly intact, attention grossly intact and language grossly intact Estimated Intelligence: consistent with education level Insight: + fair insight Judgment: + fair judgement Vital Signs (Past 24 Hours) Last Vital Signs Temp 36.7 C 01/25/25 07:16 Pulse 78 01/25/25 07:16 Resp 16 01/25/25 07:16 BP 137/84 01/25/25 07:16 Pulse Ox 96 01/25/25 07:16 O2 Del Method Room Air 01/25/25 07:35 O2 Flow Rate 0 01/11/25 14:48 Results & Data ([facility]) Current Inpatient Medications Current Inpatient Medications: Current Inpatient Medications Acetaminophen (Acetaminophen 325 Mg Tab) 650 mg PO Q4H PRN PRN Reason: PAIN OR FEVER Stop: 02/22/25 13:39 Last Admin: 01/15/25 13:47 Dose: 650 mg Al Hydrox/Mg Hydrox/Simethicone (Aluminum/Magnesium/Simeth (Maalox Max) 30 Ml Udc) 15 ml PO QID PRN PRN Reason: Stomach Issues Stop: 02/22/25 15:21 Last Admin: 01/20/25 11:18 Dose: 15 ml Al Hydrox/Mg Hydrox/Simethicone (Aluminum/Magnesium/Simeth (Maalox Max) 30 Ml Udc) 30 ml PO Q6H PRN PRN Reason: Indigestion Stop: 02/22/25 09:02 Albuterol (Albut/Ipratrop 3mg/0.5mg Neb 3 Ml Vial) 3 ml NEB Q6R PRN; Protocol PRN Reason: sob Stop: 02/22/25 15:22 Ascorbic Acid (Ascorbic Acid 500 Mg Tab) 500 mg PO DAILY [facility] Stop: 02/22/25 08:59 Last Admin: 01/25/25 07:42 Dose: 500 mg Aspirin (Aspirin 81 Mg Ectab) 81 mg PO DAILY DUNIA Stop: 02/22/25 13:44 Last Admin: 01/25/25 07:42 Dose: 81 mg Atorvastatin Calcium (Atorvastatin 20 Mg Tab) 20 mg PO DAILY DUNIA Stop: 02/22/25 13:44 Last Admin: 01/25/25 07:42 Dose: 20 mg Bisacodyl (Bisacodyl 10 Mg Supp) 10 mg DC DAILY PRN PRN Reason: Constipation Stop: 02/22/25 11:57 Last Admin: 01/10/25 12:39 Dose: 10 mg Bisacodyl (Bisacodyl 5 Mg Tabec) 5 mg PO HS PRN PRN Reason: Constipation Stop: 02/22/25 11:57 Last Admin: 01/09/25 14:28 Dose: 5 mg Calcium Carbonate (Calcium Carbonate 500 Mg Chewable Tab) 500 mg PO Q4H PRN PRN Reason: Indigestion Stop: 02/22/25 13:48 Last Admin: 01/20/25 10:40 Dose: 500 mg Cyanocobalamin (Cyanocobalamin (B-12) 500 Mcg Tablet) 1,000 mcg PO DAILY DUNIA Stop: 02/22/25 08:59 Last Admin: 01/25/25 07:42 Dose: 1,000 mcg Dicyclomine HCl (Dicyclomine Hcl 20 Mg Tab) 20 mg PO Q6H PRN PRN Reason: Gas or Constipation Stop: 02/22/25 12:32 Last Admin: 01/17/25 13:31 Dose: 20 mg Docusate Sodium (Docusate Sodium 100 Mg Cap) 100 mg PO BID DUNIA Stop: 02/22/25 20:59 Last Admin: 01/25/25 07:41 Dose: 100 mg Doxepin HCl (Doxepin Hcl 50 Mg Capsule) 50 mg PO DAILY@1900 DUNIA Stop: 02/24/25 18:59 Fish Oil ([place]-3 (Purified Fish Oil) 1 Gm Cap) 1 cap PO DAILY DUNIA Stop: 02/22/25 08:59 Last Admin: 01/25/25 07:41 Dose: 1 cap Gabapentin (Gabapentin 300 Mg Cap) 300 mg PO HS DUNIA Stop: 02/22/25 20:59 Last Admin: 01/24/25 21:52 Dose: Not Given Guaifenesin (Guaifenesin Sugar Free 100 Mg/5 Ml Udc) 200 mg PO Q4H PRN PRN Reason: Cough/Congestion Stop: 02/22/25 13:39 Heparin Sodium (Porcine) (Heparin Sod 5,000 Unit/0.5 Ml Vial) 5,000 units SQ Q8 DUNIA Stop: 02/22/25 13:59 Last Admin: 01/25/25 06:05 Dose: Not Given Hydrocortisone (Hydrocortisone Hc 2.5% Crm 30gm Tube) 1 appln EXT Q2H PRN PRN Reason: Hemorrhoids Stop: 02/22/25 10:03 Levothyroxine Sodium (Levothyroxine Sodium 88 Mcg Tablet) 88 mcg PO DAILYBB [facility] Stop: 02/22/25 06:29 Last Admin: 01/25/25 06:06 Dose: 88 mcg Melatonin (Melatonin 3 Mg Tab) 6 mg PO HS PRN PRN Reason: Sleep Stop: 02/22/25 02:14 Last Admin: 01/16/25 20:47 Dose: 6 mg Ondansetron HCl (Ondansetron Inj 2 Mg/Ml 2 Ml Vial) 4 mg IV Q6H PRN PRN Reason: Nausea Stop: 02/22/25 13:41 Pantoprazole Sodium (Pantoprazole 40 Mg Tab) 40 mg PO DAILY DUNIA Stop: 02/22/25 08:59 Last Admin: 01/25/25 07:42 Dose: 40 mg Polyethylene Glycol (Polyethylene (Miralax) 17 Gm Pack) 17 gm PO TID PRN PRN Reason: Constipation Stop: 02/22/25 11:57 Last Admin: 01/11/25 08:44 Dose: 17 gm Potassium Chloride (Potassium Chloride 10 Meq Tabcr) 10 meq PO DAILY DUNIA Stop: 02/22/25 08:59 Last Admin: 01/25/25 07:41 Dose: 10 meq Psyllium Hydrophilic Mucilloid (Psyllium Husk 4gm Packet) 4 gm PO QAM DUNIA Stop: 02/22/25 08:59 Last Admin: 01/25/25 07:41 Dose: Not Given Quetiapine Fumarate (Quetiapine Fumarate 100 Mg Tablet) 100 mg PO DAILY@1900 [facility] Stop: 02/24/25 18:59 Triamcinolone Acetonide (Triamcinolone Acet 0.1% Oint 80 Gm Tube) 1 appln EXT BID DUNIA Stop: 02/22/25 11:44 Last Admin: 01/25/25 07:41 Dose: Not Given Vitamin D (Cholecalciferol 125 Mcg (5,000 Units) Tab) 125 mcg PO DAILY DUNIA Stop: 02/22/25 08:59 Last Admin: 01/25/25 07:42 Dose: 125 mcg
--- NOTE | 2025-01-25 13:17 | Hospitalist Progress Note ---
Date of Service January 25, 2025 Assessment & Plan (1) Schizoaffective disorder: Plan: On doxepin, Seroquel and trazodone at baseline for mental health on admission. Remains OFF both Gabapentin/Abilify at this time (was on 600mg TID + 100mg BID of gabapentin and 15mg abilify) and suspect contributing to presentation w/ hypotension/toxic effects from mediations - Psych consulted. Switch doxepin to at bedtime. Start melatonin 3 mg at bedtime. Continue Seroquel 100 mg p.o. daily. Ativan discontinued. Appreciate recommendations - is w has some intermittent paresthesias however risk outweighed by benefit of gabapentin at this time given suspected contributed to her presentation - Awaiting placement for assisted, [facility]OA following psych called back to evalute for recurrent catatonia (2) UTI (urinary tract infection): Plan: - UA positive on admission and urine culture grew staph epidermidis given Ceftriaxone IV x 3 days, however repeat UA still appeared infected, do not venita pect appropriate coverage w/ CTX - Repeat urine culture with Enterococcus faecalis, s/p course of Macrobid BID completed 01/12 No ongoing infectious symptoms (3) COPD, moderate: Plan: -Duonebs prn (4) Hyperlipidemia: Plan: -atrovastatin (5) Hypothyroidism: Plan: -levothyroxine Plan 64-year-old female who was brought in by her boyfriend for AMS x 3 days with unresponsiveness and rightward fixed gaze. CT head on admission negative for CVA. Tylenol/alcohol level negative but UDS + for MDMA - note if did take MDMA w/ psych meds, could be concerning for a serotonin syndrome (confusion, rapid HR/BP/loss of muscle coordination/etc) however trazodone metabolites could also cause a false positive amphetamine result. Lyme negative. She was admitted for concern for catatonia. She does have a history of schizoaffective disorder and has required structured living arrangements in the past due to recurrent erratic behaviors and psychosis. She has improved with the medication changes below. Awaiting office of aging determination for placement. Placement pending Admission and Anticipated Discharge Date Admission Date: December 25, 2024 Subjective Sitting comfortably in bedside chair. Reports she still has some anxiety and a feeling of tingling over her body, but that this is tolerable No psychomotor slowing or agitation. Denies SI/HI Reports she feels tired and she slept poorly, no other questions or concerns at bedside Physical Exam Physical Exam: General: Alert and oriented to name and place. Pleasant. Cooperative. Answers questions without significant speech delay. No obvious psychomotor slowing or agitation HEENT: Atraumatic, normocephalic. Vision and hearing grossly intact Pulm: CTAB A&P. -wheezes, -rales, -rhonchi. Symmetrical chest rise. No increase in work of breathing. No respiratory distress. Cardiac: RRR, -mrg. Radial pulses intact and symmetrical. Extremities: Moves all extremities equally while sitting in chair Results & Data Results & Data Vital Signs (Past 12 Hours) Vital Signs Temp Pulse Resp BP Pulse Ox O2 Del Method 01/25/25 07:35 Room Air 01/25/25 07:16 36.7 C 78 16 137/84 96 Room Air PG Care Time/CCT Total # of Minutes Spent Total Time Spent with Patient: Total time spent is greater than 50% in coordination of care (as documented) at patient's floor/unit and/or counseling patient: Coding Level of Care Code 57749 SUB INP/OBS CARE MIN Diagnoses Schizoaffective disorder F25.9 UTI (urinary tract infection) N39.0 COPD, moderate J44.9 Hyperlipidemia E78.5 Hypothyroidism E03.9
[2025-01-25] MEDS: DOXEPIN HCL 50 MG CAPSULE PO SCH (18:19)
--- NOTE | 2025-01-26 15:13 | Hospitalist Progress Note ---
Date of Service January 26, 2025 Assessment & Plan (1) Schizoaffective disorder: Plan: On doxepin, Seroquel and trazodone at baseline for mental health on admission. Remains OFF both Gabapentin/Abilify at this time (was on 600mg TID + 100mg BID of gabapentin and 15mg abilify) and suspect contributing to presentation w/ hypotension/toxic effects from mediations Paresthesias reportedly improved per patient without treatment No clinical change, stable, awaiting placement. Medically stable for discharge No catatonic symptoms 01/26 (2) UTI (urinary tract infection): Plan: - UA positive on admission and urine culture grew staph epidermidis given Ceftriaxone IV x 3 days, however repeat UA still appeared infected, do not suspect appropriate coverage w/ CTX - Repeat urine culture with Enterococcus faecalis, s/p course of Macrobid BID completed 01/12 No ongoing infectious symptoms (3) COPD, moderate: Plan: -Duonebs prn (4) Hyperlipidemia: Plan: -atrovastatin (5) Hypothyroidism: Plan: -levothyroxine Plan 64-year-old female who was brought in by her boyfriend for AMS x 3 days with unresponsiveness and rightward fixed gaze. CT head on admission negative for CVA. Tylenol/alcohol level negative but UDS + for MDMA - note if did take MDMA w/ psych meds, could be concerning for a serotonin syndrome (confusion, rapid HR/BP/loss of muscle coordination/etc) however trazodone metabolites could also cause a false positive amphetamine result. Lyme negative. She was admitted for concern for catatonia. She does have a history of schizoaffective disorder and has required structured living arrangements in the past due to recurrent erratic behaviors and psychosis. She has improved with the medication changes below. Awaiting office of aging determination for placement. Placement pending Admission and Anticipated Discharge Date Admission Date: December 25, 2024 Subjective Seen at the bedside. Sitting up comfortably eating lunch. No new symptoms to day. Feels her numbness/tingling is actually little better today. Awaiting placement Physical Exam Physical Exam: General: Alert and oriented to name and place. Pleasant. Cooperative. Answers questions without significant speech delay. No obvious psychomotor slowing or agitation. Not responding to internal stimuli HEENT: Atraumatic, normocephalic. Vision and hearing grossly intact Pulm: Symmetrical chest rise. No increase in work of breathing. No respiratory distress. Extremities: Moves all extremities equally while sitting in chair Results & Data Results & Data Vital Signs (Past 12 Hours) Vital Signs Temp Pulse Resp Pulse Ox O2 Del Method 01/26/25 08:00 36.7 C 96 H 18 97 Room Air 01/26/25 07:19 Room Air PG Care Time/CCT Total # of Minutes Spent Total Time Spent with Patient: Total time spent is greater than 50% in coordination of care (as documented) at patient's floor/unit and/or counseling patient: Coding Level of Care Code 49845 SUB INP/OBS CARE 06/24MIN Diagnoses Schizoaffective disorder F25.9 UTI (urinary tract infection) N39.0 COPD, moderate J44.9 Hyperlipidemia E78.5 Hypothyroidism E03.9
--- NOTE | 2025-01-27 11:14 | Hospitalist Progress Note ---
Date of Service January 27, 2025 Assessment & Plan (1) Schizoaffective disorder: Plan: On doxepin, Seroquel and trazodone at baseline for mental health on admission. Remains OFF both Gabapentin/Abilify at this time (was on 600mg TID + 100mg BID of gabapentin and 15mg abilify) and suspect contributing to presentation w/ hypotension/toxic effects from mediations Paresthesias reportedly improved per patient without treatment No clinical change, stable, awaiting placement. Medically stable for discharge No catatonic symptoms 01/26 (2) COPD, moderate: Plan: -Duonebs prn (3) Hyperlipidemia: Plan: -atrovastatin (4) Hypothyroidism: Plan: -levothyroxine (5) Neuropathy: Plan: b/l foot neuropathy trial gabapentin 300mg HS, 100mg am Plan 64-year-old female who was brought in by her boyfriend for AMS x 3 days with unresponsiveness and rightward fixed gaze. CT head on admission negative for CVA. Tylenol/alcohol level negative but UDS + for MDMA - note if did take MDMA w/ psych meds, could be concerning for a serotonin syndrome (confusion, rapid HR/BP/loss of muscle coordination/etc) however trazodone metabolites could also cause a false positive amphetamine result. Lyme negative. She was admitted for concern for catatonia. She does have a history of schizoaffective disorder and has required structured living arrangements in the past due to recurrent erratic behaviors and psychosis. She has improved with the medication changes below. Awaiting office of aging determination for placement. Placement pending Admission and Anticipated Discharge Date Admission Date: December 25, 2024 Subjective Juliana is seen at the bedside. She is sitting up eating lunch at time of visit. No change, pleasant. She reports the tingling in her feet has improved from prior but is still bothersome to her and she would like to try low-dose of gabapentin in AM if possible. No other concerns Physical Exam Physical Exam: General: Alert and oriented to name and place. Pleasant. Cooperative. No increased speech latency. HEENT: Atraumatic, normocephalic. Vision and hearing grossly intact Pulm: Symmetrical chest rise. No increase in work of breathing. No respiratory distress. Extremities: Moves all extremities equally while sitting in chair while eating lunch Results & Data Results & Data Vital Signs (Past 12 Hours) Vital Signs Temp Pulse Resp BP Pulse Ox O2 Del Method 01/27/25 07:16 36.6 C 77 18 107/67 98 Room Air 01/27/25 07:12 Room Air PG Care Time/CCT Total # of Minutes Spent Total Time Spent with Patient: Total time spent is greater than 50% in coordination of care (as documented) at patient's floor/unit and/or counseling patient: Coding Level of Care Code 94889 SUB INP/OBS CARE 3/50MIN Diagnoses Schizoaffective disorder F25.9 COPD, moderate J44.9 Hyperlipidemia E78.5 Hypothyroidism E03.9 Neuropathy G62.9
[2025-01-28] MEDS: GABAPENTIN 100 MG CAP PO SCH (08:59)
--- NOTE | 2025-01-28 12:50 | Hospitalist Progress Note ---
Date of Service January 28, 2025 Assessment & Plan (1) Schizoaffective disorder: Plan: - On doxepin, Seroquel and trazodone at baseline for mental health on admission. Some concern for supratherapeutic doses of gabapentin contributing. No clinical change, stable, awaiting placement. Medically stable for discharge No catatonic symptoms 01/28 Patient reports some odd sensations in her arms and legs is concerned that her medications are subtherapeutic. Denies AH/VH, but Feels her meds are not 'quite right'. Did review with Dr. Daley --> rec increasing Quetiapine to 300mg HS. Appreciate recommendations. Has been seen by psych multiple times with multiple medication changes (see last note 01/25/2025). She is continued on quetiapine increased to 300 mg at bedtime and melatonin at bedtime at this time. Has had trazodone, Abilify, and prior lorazepam discontinued. no evidence of acute psychosis. Will follow closely and psych aware. In the meantime we will continue to treat her neuropathy, which she feels is actually really improved with gabapentin 100 mg, 300 mg at bedtime (significantly dose reduced from [employer] dosing). (2) COPD, moderate: Plan: -Duonebs prn (3) Hyperlipidemia: Plan: -atrovastatin (4) Hypothyroidism: Plan: -levothyroxine (5) Neuropathy: Plan: b/l foot neuropathy supratherapeutic levels of gabapentin contributing to hypotension and mental status on admission. Significantly dose reduced Currently on 100 mg morning, 300 mg at bedtime. Seems to be tolerating this well. She also feels that this has had a significant benefit to the neuropathy in her feet 01/28. Monitor closely for sedation/AE (6) Seborrheic dermatitis: Plan: - on bridge of nose and forehead - +ketoconazole topical and hydrocortisone 2.5% topical once to twice daily applied to bridge of nose and forehead (avoiding eyes) as needed. Plan 64-year-old female who was brought in by her boyfriend for AMS x 3 days with unresponsiveness and rightward fixed gaze. CT head on admission negative for CVA. Tylenol/alcohol level negative but UDS + for MDMA - note if did take MDMA w/ psych meds, could be concerning for a serotonin syndrome (confusion, rapid HR/BP/loss of muscle coordination/etc) however trazodone metabolites could also cause a false positive amphetamine result. Lyme negative. She was admitted for concern for catatonia. She does have a history of schizoaffective disorder and has required structured living arrangements in the past due to recurrent erratic behaviors and psychosis. She has improved with the medication changes below. Awaiting office of aging determination for placement. Placement pending Admission and Anticipated Discharge Date Admission Date: December 25, 2024 Subjective Seen at the bedside this morning. She reports the tingling in her feet is much better with the addition of morning gabapentin. She does sure if her psych meds are "correct" she noticed some sensations and paresthesias, but denies AH/VH. Answers questions appropriately. Not responding to internal stimuli during conversation. She reports she does have some rash which is developed on the bridge of her nose and her forehead. Has not had this previously. Hernandez slightly when washing with water. Physical Exam Physical Exam: General: A&Ox3. NAD. Cooperative. Speech fluent. Not responding to internal stimuli. Denies AH/VH. HEENT: Atraumatic, normocephalic. Vision and hearing grossly intact. Small patches of erythematous with very slight white scale overlying bridge of nose and forehead with lightly oily character Pulm: CTAB A&P. -wheezes, -rales, -rhonchi. Symmetrical chest rise. No increase in work of breathing. No respiratory distress. Cardiac: RRR, -mrg. Radial pulses intact and symmetrical. Abdominal: Nontender, nondistended, soft. BS present. Extremities: Warm, dry Results & Data Results & Data Vital Signs (Past 12 Hours) Vital Signs Temp Pulse Resp BP Pulse Ox O2 Del Method 01/28/25 07:20 36.6 C 71 18 129/77 99 Room Air 01/28/25 07:00 Room Air PG Care Time/CCT Total # of Minutes Spent Total Time Spent with Patient: Total time spent is greater than 50% in coordination of care (as documented) at patient's floor/unit and/or counseling patient: Coding Level of Care Code 07767 SUB INP/OBS CARE 3/50MIN Diagnoses Schizoaffective disorder F25.9 COPD, moderate J44.9 Hyperlipidemia E78.5 Hypothyroidism E03.9 Neuropathy G62.9 Seborrheic dermatitis L21.9
[2025-01-28] MEDS ORDERED: HYDROCORTISONE 2.5% CR 30 GM TUBE EXT PRN (13:15)
[2025-01-28] MEDS: KETOCONAZOLE 2% CR 15 GM TUBE EXT SCH (15:17)
[2025-01-29] MEDS: HEPARIN SOD 5,000 UNIT/0.5 ML VIAL SQ SCH (09:59)
--- NOTE | 2025-01-29 12:12 | Hospitalist Progress Note ---
Date of Service January 29, 2025 Assessment & Plan (1) Schizoaffective disorder: Plan: Stable. Continue current medical management. Supportive care (2) COPD, moderate: Plan: Stable. Continue Duonebs prn (3) Hyperlipidemia: Plan: Stable. Continue statin therapy (4) Hypothyroidism: Plan: Stable. Continue levothyroxine (5) Neuropathy: Plan: b/l foot neuropathy. Gabapentin dosage has been down titrated this admission. (6) Seborrheic dermatitis: Plan: on bridge of nose and forehead. Treating with ketoconazole topical and hydrocortisone 2.5% topical once to twice daily applied to bridge of nose and forehead (avoiding eyes) as needed. Plan Hopeful discharge to [facility] sometime this coming week Admission and Anticipated Discharge Date Admission Date: December 25, 2024 Subjective Alert and she appears to be oriented. Pleasant. She is awaiting placement, possibly at [facility]. Review of Systems 2 Review of Systems: Constitutionalno fever or chills ENTno blurred vision, no double vision, no epistaxis, no sore throat Respiratoryno cough, no wheezing, no shortness of breath Cardiacno palpitations, no chest pain, no syncope Blaine nausea, vomiting, diarrhea, melena, hematochezia GUno urinary retention, no urinary incontinence, no dysuria, no hematuria Musculoskeletalno joint pain, no muscle tenderness Skinno bruising, no rashes, no pruritus Neurono isolated weakness, no paresthesia, no weakness Psychno depression, no anxiety Physical Exam 2 Physical Exam: General-alert and oriented x3, no fever, no chills HEENT-head atraumatic and normocephalic, pupils equal and reactive to light, extraocular muscles intact Neck-no lymphadenopathy or thyromegaly, trachea midline Chest-clear to auscultation. No rales, wheezing or rhonchi Cardiac-regular rate and rhythm, normal S1 and S2 Abdomen-normal bowel sounds, no hepatosplenomegaly Extremities-no cyanosis, clubbing, or edema Neuro-cranial nerves II through XII intact, motor and sensory function within normal limits, strength symmetrical, no focal deficits Psych-normal affect, normal mood Results & Data Results & Data Vital Signs (Past 12 Hours) Vital Signs Temp Pulse Resp BP Pulse Ox O2 Del Method 01/29/25 07:05 36.9 C 93 H 16 115/76 98 Room Air Laboratory Results 01/13/25 06:07 01/13/25 06:07 PG Care Time/CCT Total # of Minutes Spent Total Time Spent with Patient: Total time spent is greater than 50% in coordination of care (as documented) at patient's floor/unit and/or counseling patient: Coding Level of Care Code 78837 SUB INP/OBS CARE 3/50MIN Diagnoses Schizoaffective disorder F25.9 COPD, moderate J44.9 Hyperlipidemia E78.5 Hypothyroidism E03.9 Neuropathy G62.9 Seborrheic dermatitis L21.9
--- NOTE | 2025-01-30 12:50 | Hospitalist Progress Note ---
Date of Service January 30, 2025 Assessment & Plan (1) Schizoaffective disorder: Plan: Stable. Continue current medical management although she frequently refuses to take her medications. Supportive care (2) COPD, moderate: Plan: Stable. Continue Duonebs prn (3) Hyperlipidemia: Plan: Stable. Continue statin therapy (4) Hypothyroidism: Plan: Stable. Continue levothyroxine (5) Neuropathy: Plan: b/l foot neuropathy. Gabapentin dosage has been down titrated this admission. (6) Seborrheic dermatitis: Plan: on bridge of nose and forehead. Treating with ketoconazole topical and hydrocortisone 2.5% topical once to twice daily applied to bridge of nose and forehead (avoiding eyes) as needed. Plan Disposition pending. Case management is involved. She is medically stable for discharge Admission and Anticipated Discharge Date Admission Date: December 25, 2024 Subjective Disposition continues to be a problem with this patient. She remains afebrile with stable vital signs. She is nonconversant with me. Stable overall however Review of Systems 2 Review of Systems: Constitutionalno fever or chills ENTno blurred vision, no double vision, no epistaxis, no sore throat Respiratoryno cough, no wheezing, no shortness of breath Cardiacno palpitations, no chest pain, no syncope Blaine nausea, vomiting, diarrhea, melena, hematochezia GUno urinary retention, no urinary incontinence, no dysuria, no hematuria Musculoskeletalno joint pain, no muscle tenderness Skinno bruising, no rashes, no pruritus Neurono isolated weakness, no paresthesia, no weakness Psychno depression, no anxiety Physical Exam 2 Physical Exam: General-feigning sleep. Nonverbal. No fever HEENT-head atraumatic and normocephalic, pupils equal and reactive to light, extraocular muscles intact Neck-no lymphadenopathy or thyromegaly, trachea midline Chest-clear to auscultation. No rales, wheezing or rhonchi Cardiac-regular rate and rhythm, normal S1 and S2 Abdomen-normal bowel sounds, no hepatosplenomegaly Extremities-no cyanosis, clubbing, or edema Neuro-feigning sleep. Cannot assess Psych-feigning sleep. Cannot assess Results & Data Results & Data Vital Signs (Past 12 Hours) Vital Signs Temp Pulse Resp BP Pulse Ox O2 Del Method 01/30/25 07:34 36.7 C 75 16 111/71 95 Room Air Laboratory Results 01/13/25 06:07 01/13/25 06:07 PG Care Time/CCT Total # of Minutes Spent Total Time Spent with Patient: Total time spent is greater than 50% in coordination of care (as documented) at patient's floor/unit and/or counseling patient: Coding Level of Care Code 62575 SUB INP/OBS CARE 2/35MIN Diagnoses Schizoaffective disorder F25.9 COPD, moderate J44.9 Hyperlipidemia E78.5 Hypothyroidism E03.9 Neuropathy G62.9 Seborrheic dermatitis L21.9
--- NOTE | 2025-01-31 15:38 | Hospitalist Progress Note ---
Date of Service January 31, 2025 Assessment & Plan (1) Schizoaffective disorder: Plan: Stable. Continue current medical management although she frequently refuses to take her medications. Supportive care (2) COPD, moderate: Plan: Stable. Continue Duonebs prn (3) Hyperlipidemia: Plan: Stable. Continue statin therapy (4) Hypothyroidism: Plan: Stable. Continue levothyroxine (5) Neuropathy: Plan: b/l foot neuropathy. Gabapentin dosage has been down titrated this admission. (6) Seborrheic dermatitis: Plan: on bridge of nose and forehead. Treating with ketoconazole topical and hydrocortisone 2.5% topical once to twice daily applied to bridge of nose and forehead (avoiding eyes) as needed. Plan Disposition pending. Case management is involved. She is medically stable for discharge Admission and Anticipated Discharge Date Admission Date: December 25, 2024 Subjective Awake and alert sitting in a chair in the room. No distress. She is asking to see the psychiatry liaison Review of Systems 2 Review of Systems: Constitutionalno fever or chills ENTno blurred vision, no double vision, no epistaxis, no sore throat Respiratoryno cough, no wheezing, no shortness of breath Cardiacno palpitations, no chest pain, no syncope Blaine nausea, vomiting, diarrhea, melena, hematochezia GUno urinary retention, no urinary incontinence, no dysuria, no hematuria Musculoskeletalno joint pain, no muscle tenderness Skinno bruising, no rashes, no pruritus Neurono isolated weakness, no paresthesia, no weakness Psychno depression, no anxiety Physical Exam 2 Physical Exam: General-alert and oriented x3, no fever, no chills HEENT-head atraumatic and normocephalic, pupils equal and reactive to light, extraocular muscles intact Neck-no lymphadenopathy or thyromegaly, trachea midline Chest-clear to auscultation. No rales, wheezing or rhonchi Cardiac-regular rate and rhythm, normal S1 and S2 Abdomen-normal bowel sounds, no hepatosplenomegaly Extremities-no cyanosis, clubbing, or edema Neuro-cranial nerves II through XII intact, motor and sensory function within normal limits, strength symmetrical, no focal deficits Psych-normal affect, normal mood Results & Data Results & Data Vital Signs (Past 12 Hours) Vital Signs Temp Pulse Resp BP Pulse Ox O2 Del Method 01/31/25 08:00 Room Air 01/31/25 07:26 36.7 C 91 H 18 119/67 96 Room Air Laboratory Results 01/13/25 06:07 01/13/25 06:07 PG Care Time/CCT Total # of Minutes Spent Total Time Spent with Patient: Total time spent is greater than 50% in coordination of care (as documented) at patient's floor/unit and/or counseling patient: Coding Level of Care Code 84001 SUB INP/OBS CARE 2/35MIN Diagnoses Schizoaffective disorder F25.9 COPD, moderate J44.9 Hyperlipidemia E78.5 Hypothyroidism E03.9 Neuropathy G62.9 Seborrheic dermatitis L21.9
--- NOTE | 2025-02-01 12:19 | Hospitalist Progress Note ---
Date of Service February 01, 2025 Assessment & Plan (1) Schizoaffective disorder: Plan: Stable. Continue current medical management although she frequently refuses to take her medications. Supportive care (2) COPD, moderate: Plan: Stable. Continue Duonebs prn (3) Hyperlipidemia: Plan: Stable. Continue statin therapy (4) Hypothyroidism: Plan: Stable. Continue levothyroxine (5) Neuropathy: Plan: b/l foot neuropathy. Gabapentin dosage has been down titrated this admission. (6) Seborrheic dermatitis: Plan: on bridge of nose and forehead. Treating with ketoconazole topical and hydrocortisone 2.5% topical once to twice daily applied to bridge of nose and forehead (avoiding eyes) as needed. Plan Disposition pending. Case management is involved. She is medically stable for discharge Admission and Anticipated Discharge Date Admission Date: December 25, 2024 Subjective Stable. No new problems. She still is asking to see psychiatry. They have been notified. Case management pursuing eventual placement at [facility]. Review of Systems 2 Review of Systems: Constitutionalno fever or chills ENTno blurred vision, no double vision, no epistaxis, no sore throat Respiratoryno cough, no wheezing, no shortness of breath Cardiacno palpitations, no chest pain, no syncope Blaine nausea, vomiting, diarrhea, melena, hematochezia GUno urinary retention, no urinary incontinence, no dysuria, no hematuria Musculoskeletalno joint pain, no muscle tenderness Skinno bruising, no rashes, no pruritus Neurono isolated weakness, no paresthesia, no weakness Psychno depression, no anxiety Physical Exam 2 Physical Exam: General-alert and oriented x3, no fever, no chills HEENT-head atraumatic and normocephalic, pupils equal and reactive to light, extraocular muscles intact Neck-no lymphadenopathy or thyromegaly, trachea midline Chest-clear to auscultation. No rales, wheezing or rhonchi Cardiac-regular rate and rhythm, normal S1 and S2 Abdomen-normal bowel sounds, no hepatosplenomegaly Extremities-no cyanosis, clubbing, or edema Neuro-cranial nerves II through XII intact, motor and sensory function within normal limits, strength symmetrical, no focal deficits Psych-flat affect Results & Data Results & Data Vital Signs (Past 12 Hours) Vital Signs Temp Pulse Resp BP Pulse Ox O2 Del Method 02/01/25 07:37 36.6 C 77 18 99/62 L 95 Room Air Laboratory Results 01/13/25 06:07 01/13/25 06:07 PG Care Time/CCT Total # of Minutes Spent Total Time Spent with Patient: Total time spent is greater than 50% in coordination of care (as documented) at patient's floor/unit and/or counseling patient: Coding Level of Care Code 68100 SUB INP/OBS CARE 2/35MIN Diagnoses Schizoaffective disorder F25.9 COPD, moderate J44.9 Hyperlipidemia E78.5 Hypothyroidism E03.9 Neuropathy G62.9 Seborrheic dermatitis L21.9
--- NOTE | 2025-02-02 10:49 | Hospitalist Progress Note ---
Date of Service February 02, 2025 Assessment & Plan (1) Schizoaffective disorder: Plan: Stable. Continue current medical management although she frequently refuses to take her medications. Supportive care (2) COPD, moderate: Plan: Stable. Continue Duonebs prn (3) Hyperlipidemia: Plan: Stable. Continue statin therapy (4) Hypothyroidism: Plan: Stable. Continue levothyroxine (5) Neuropathy: Plan: b/l foot neuropathy. Gabapentin dosage has been down titrated this admission. (6) Seborrheic dermatitis: Plan: on bridge of nose and forehead. Treating with ketoconazole topical and hydrocortisone 2.5% topical once to twice daily applied to bridge of nose and forehead (avoiding eyes) as needed. Plan Disposition pending. Case management is involved. She is medically stable for discharge Admission and Anticipated Discharge Date Admission Date: December 25, 2024 Subjective The patient is asleep at the time of my rounds. Vital signs are stable. Review of Systems 2 Review of Systems: The patient is currently asleep and cannot answer any questions regarding review of systems at this time Physical Exam 2 Physical Exam: General-currently asleep. Afebrile HEENT-head atraumatic and normocephalic, pupils equal and reactive to light, extraocular muscles intact Neck-no lymphadenopathy or thyromegaly, trachea midline Chest-clear to auscultation. No rales, wheezing or rhonchi Cardiac-regular rate and rhythm, normal S1 and S2 Abdomen-normal bowel sounds, no hepatosplenomegaly Extremities-no cyanosis, clubbing, or edema Neuro-currently asleep. Cannot assess Psych-currently asleep. Cannot assess Results & Data Results & Data Vital Signs (Past 12 Hours) Vital Signs Temp Pulse Resp BP Pulse Ox O2 Del Method 02/02/25 08:14 36.8 C 74 16 108/72 97 Room Air Laboratory Results 01/13/25 06:07 01/13/25 06:07 PG Care Time/CCT Total # of Minutes Spent Total Time Spent with Patient: Total time spent is greater than 50% in coordination of care (as documented) at patient's floor/unit and/or counseling patient: Coding Level of Care Code 01298 SUB INP/OBS CARE 2/35MIN Diagnoses Schizoaffective disorder F25.9 COPD, moderate J44.9 Hyperlipidemia E78.5 Hypothyroidism E03.9 Neuropathy G62.9 Seborrheic dermatitis L21.9
--- NOTE | 2025-02-03 11:43 | Hospitalist Progress Note ---
Date of Service February 03, 2025 Assessment & Plan (1) Schizoaffective disorder: Plan: Uncooperative and verbally abusive this morning per nursing staff, 9 6. Psychiatry has been notified. Continue current medical management although she frequently refuses to take her medications. Supportive care (2) COPD, moderate: Plan: Stable. Continue Duonebs prn (3) Hyperlipidemia: Plan: Stable. Continue statin therapy (4) Hypothyroidism: Plan: Stable. Continue levothyroxine (5) Neuropathy: Plan: b/l foot neuropathy. Gabapentin dosage has been down titrated this admission. (6) Seborrheic dermatitis: Plan: on bridge of nose and forehead. Treating with ketoconazole topical and hydrocortisone 2.5% topical once to twice daily applied to bridge of nose and forehead (avoiding eyes) as needed. Plan Disposition pending. Psychiatry will reevaluate the patient today since she is verbally abusive and uncooperative, February 03 Admission and Anticipated Discharge Date Admission Date: December 25, 2024 Subjective Nursing staff states the patient was verbally abusive this morning, uncooperative, and wanting to leave the hospital. Psychiatry has been notified and will see her shortly. Review of Systems 2 Review of Systems: The patient is uncooperative and unwilling to answer any questions regarding review of systems at this time Physical Exam 2 Physical Exam: The patient is currently unwilling to let me examine her Results & Data Results & Data Laboratory Results 01/13/25 06:07 01/13/25 06:07 PG Care Time/CCT Total # of Minutes Spent Total Time Spent with Patient: Total time spent is greater than 50% in coordination of care (as documented) at patient's floor/unit and/or counseling patient: Coding Level of Care Code 79817 SUB INP/OBS CARE 2/35MIN Diagnoses Schizoaffective disorder F25.9 COPD, moderate J44.9 Hyperlipidemia E78.5 Hypothyroidism E03.9 Neuropathy G62.9 Seborrheic dermatitis L21.9
--- NOTE | 2025-02-03 12:40 | Psychiatric Progress Note ---
Date of Service February 03, 2025 Impression / Recommendations Impression 64 y/o F h/o Schizoaffective disorder, COPD, HTN, HLD, who presents with AMS in the context of active UTI. Psychiatry consulted for evaluation. Pt has h/o Schizoaffective disorder, historically has required structured living due to recurrent erratic behaviors, psychosis. She presents poor insight into her condition. A: Patient presents a stable mental status. No evidence of active psychosis or catatonia. Unclear on reasons for medication refusal and likely behavioral. Med history reviewed. Slight concern for akathisia with quetiapine (seroquel) given expressed symptoms and may benefit from dose reduction. No safety concerns identified; she is future oriented and agreeable to H placement. Overall, I spent a total of 35 minutes with this case including review of chart records, nursing report, review of lab work, direct evaluation of the patient at bedside, discussion of the patient with the hospitalist provider, discussion with the psychiatric liaison during clinical rounds, and documentation in the electronic health record. (1) Schizoaffective disorder: Plan 02/03/25: Decrease Quetiapine to 150mg Q7pm Increase Doxepin to 75mg Q7pm No acute safety concerns 01/25/2025: -Melatonin 3 mg PO QHS nightly -Continue Seroquel 100 mg p.o. daily for more immediate management of insomnia 01/05/2025: -Discontinue ativan (she never received any doses) -Continue with doxepin at HS -If sedation remains improved over next 1-2 weeks then consider restarting Seroquel 100mg HS given history of schizoaffective disorder vs option to trial alternative antipsychotic (sees Dr. Sanchez as an outpatient for psychiatric management) -VAIBHAV signed for Dr. Sanchez, will fax his office notes from this hospitalization 01/03/2025: -Discontinue Seroquel and trazodone to lessen risks for hypotension -Move doxepin from morning to HS given sedating effects -Start ativan 0.5mg IV TID or 1mg IV TID with goal of consistent administration. 01/02/25: Trial discontinuation of lorazepam and psychiatry to assess if symptoms persist 12/29/24: Decrease lorazepam to 0.5mg BID IV/PO, then tomorrow 0.5mg HS, then d/c. 12/28/24: Lorazepam 0.5mg QAM, 0.5mg Q2pm, 1mg HS IV/PO 12/27/24: Transition to oral Lorazepam 1mg TID 12/26/24: Lorazepam IV 1mg TID, can decrease dose if hypotensive, bradypneic, or causing excess sedation Continue home Trazodone 100mg HS, Doxepin 100mg HS, Quetiapine XR 100mg QPM Psychiatry consults to follow Interval History Identifying Information 64 y/o F h/o Schizoaffective disorder, COPD, HTN, HLD, who presents with AMS in the context of active UTI. Psychiatry consulted for evaluation. Chief Complaint Restlessness Subjective Subjective Pt is AO to self place date situation. Reports feeling terrible yesterday and complains about the care she received. Says she wants to be on her original medications. No evidence of catatonia or psychosis presented. She feels safe. Denies AVH. C/o increasing restlessness and having to walk to feel better. Says she can sit still for prolonged period of time. Reports not taking medications last night because she slept through the media account executive period. Interested in housing placement. Denies urinary symptoms. Physical Exam Mental Examination Appearance: Disheveled Eye Contact: Maintains Eye Contact Motor Behavior: Unremarkable Speech: Normal Mood: Euthymic and Calm Affect: Congruent Thought Process: [place] and Goal Oriented Thought Content: Circumstantial Hallucinations: None Insight: Poor Judgement: Poor Vital Signs (Past 24 Hours) Last Vital Signs Temp 36.3 C L 02/02/25 11:28 Pulse 76 02/02/25 14:35 Resp 18 02/02/25 14:35 BP 104/68 02/02/25 14:35 Pulse Ox 98 02/02/25 14:35 O2 Del Method Room Air 02/02/25 14:35 O2 Flow Rate 2 01/28/25 23:44 Results & Data ([facility]) Current Inpatient Medications Current Inpatient Medications: Current Inpatient Medications Acetaminophen (Acetaminophen 325 Mg Tab) 650 mg PO Q4H PRN PRN Reason: PAIN OR FEVER Stop: 02/22/25 13:39 Last Admin: 01/31/25 19:37 Dose: 650 mg Al Hydrox/Mg Hydrox/Simethicone (Aluminum/Magnesium/Simeth (Maalox Max) 30 Ml Udc) 15 ml PO QID PRN PRN Reason: Stomach Issues Stop: 02/22/25 15:21 Last Admin: 01/20/25 11:18 Dose: 15 ml Al Hydrox/Mg Hydrox/Simethicone (Aluminum/Magnesium/Simeth (Maalox Max) 30 Ml Udc) 30 ml PO Q6H PRN PRN Reason: Indigestion Stop: 02/22/25 09:02 Albuterol (Albut/Ipratrop 3mg/0.5mg Neb 3 Ml Vial) 3 ml NEB Q6R PRN; Protocol PRN Reason: sob Stop: 02/22/25 15:22 Ascorbic Acid (Ascorbic Acid 500 Mg Tab) 500 mg PO DAILY DUNIA Stop: 02/22/25 08:59 Last Admin: 02/03/25 09:32 Dose: Not Given Aspirin (Aspirin 81 Mg Ectab) 81 mg PO DAILY DUNIA Stop: 02/22/25 13:44 Last Admin: 02/03/25 09:32 Dose: Not Given Atorvastatin Calcium (Atorvastatin 20 Mg Tab) 20 mg PO DAILY DUNIA Stop: 02/22/25 13:44 Last Admin: 02/03/25 09:32 Dose: Not Given Bisacodyl (Bisacodyl 10 Mg Supp) 10 mg TN DAILY PRN PRN Reason: Constipation Stop: 02/22/25 11:57 Last Admin: 01/10/25 12:39 Dose: 10 mg Bisacodyl (Bisacodyl 5 Mg Tabec) 5 mg PO HS PRN PRN Reason: Constipation Stop: 02/22/25 11:57 Last Admin: 01/09/25 14:28 Dose: 5 mg Calcium Carbonate (Calcium Carbonate 500 Mg Chewable Tab) 500 mg PO Q4H PRN PRN Reason: Indigestion Stop: 02/22/25 13:48 Last Admin: 01/20/25 10:40 Dose: 500 mg Cyanocobalamin (Cyanocobalamin (B-12) 500 Mcg Tablet) 1,000 mcg PO DAILY DUNIA Stop: 02/22/25 08:59 Last Admin: 02/03/25 09:32 Dose: Not Given Dicyclomine HCl (Dicyclomine Hcl 20 Mg Tab) 20 mg PO Q6H PRN PRN Reason: Gas or Constipation Stop: 02/22/25 12:32 Last Admin: 01/17/25 13:31 Dose: 20 mg Docusate Sodium (Docusate Sodium 100 Mg Cap) 100 mg PO BID DUNIA Stop: 02/22/25 20:59 Last Admin: 02/03/25 09:32 Dose: Not Given Doxepin HCl (Doxepin Hcl 50 Mg Capsule) 50 mg PO DAILY@1900 DUNIA Stop: 02/24/25 18:59 Last Admin: 02/02/25 18:09 Dose: Not Given Fish Oil ([place]-3 (Purified Fish Oil) 1 Gm Cap) 1 cap PO DAILY DUNIA Stop: 02/22/25 08:59 Last Admin: 02/03/25 09:32 Dose: Not Given Gabapentin (Gabapentin 300 Mg Cap) 300 mg PO HS DUNIA Stop: 02/22/25 20:59 Last Admin: 02/02/25 22:02 Dose: Not Given Gabapentin (Gabapentin 100 Mg Cap) 100 mg PO QAM [facility] Stop: 02/27/25 08:59 Last Admin: 02/03/25 09:32 Dose: Not Given Guaifenesin (Guaifenesin Sugar Free 100 Mg/5 Ml Udc) 200 mg PO Q4H PRN PRN Reason: Cough/Congestion Stop: 02/22/25 13:39 Heparin Sodium (Porcine) (Heparin Sod 5,000 Unit/0.5 Ml Vial) 5,000 units SQ Q12H DUNIA Stop: 02/28/25 08:14 Last Admin: 02/03/25 09:31 Dose: Not Given Hydrocortisone (Hydrocortisone Hc 2.5% Crm 30gm Tube) 1 appln EXT Q2H PRN PRN Reason: Hemorrhoids Stop: 02/22/25 10:03 Hydrocortisone (Hydrocortisone 2.5% Cr 30 Gm Tube) 1 appln EXT DAILY PRN PRN Reason: seborrheic dermatitis Stop: 02/27/25 13:14 Ketoconazole (Ketoconazole 2% Cr 15 Gm Tube) 1 appln EXT DAILY DUNIA Stop: 02/07/25 13:29 Last Admin: 02/03/25 09:32 Dose: Not Given Levothyroxine Sodium (Levothyroxine Sodium 88 Mcg Tablet) 88 mcg PO DAILYBB DUNIA Stop: 02/22/25 06:29 Last Admin: 02/03/25 09:31 Dose: Not Given Melatonin (Melatonin 3 Mg Tab) 6 mg PO HS PRN PRN Reason: Sleep Stop: 02/22/25 02:14 Last Admin: 02/01/25 19:52 Dose: 6 mg Ondansetron HCl (Ondansetron Inj 2 Mg/Ml 2 Ml Vial) 4 mg IV Q6H PRN PRN Reason: Nausea Stop: 02/22/25 13:41 Pantoprazole Sodium (Pantoprazole 40 Mg Tab) 40 mg PO DAILY DUNIA Stop: 02/22/25 08:59 Last Admin: 02/03/25 09:32 Dose: Not Given Polyethylene Glycol (Polyethylene (Miralax) 17 Gm Pack) 17 gm PO TID PRN PRN Reason: Constipation Stop: 02/22/25 11:57 Last Admin: 01/11/25 08:44 Dose: 17 gm Potassium Chloride (Potassium Chloride 10 Meq Tabcr) 10 meq PO DAILY DUNIA Stop: 02/22/25 08:59 Last Admin: 02/03/25 09:32 Dose: Not Given Psyllium Hydrophilic Mucilloid (Psyllium Husk 4gm Packet) 4 gm PO QAM DUNIA Stop: 02/22/25 08:59 Last Admin: 02/03/25 09:32 Dose: Not Given Quetiapine Fumarate (Quetiapine Fumarate 300 Mg Tablet) 300 mg PO DAILY@1900 DUNIA Stop: 02/27/25 18:59 Last Admin: 02/02/25 18:09 Dose: Not Given Triamcinolone Acetonide (Triamcinolone Acet 0.1% Oint 80 Gm Tube) 1 appln EXT BID DUNIA Stop: 02/22/25 11:44 Last Admin: 02/03/25 09:32 Dose: Not Given Vitamin D (Cholecalciferol 125 Mcg (5,000 Units) Tab) 125 mcg PO DAILY DUNIA Stop: 02/22/25 08:59 Last Admin: 02/03/25 09:32 Dose: Not Given
[2025-02-03] MEDS: DOXEPIN HCL 75 MG CAPSULE PO SCH (20:07)
--- NOTE | 2025-02-04 14:41 | Hospitalist Progress Note ---
Date of Service February 04, 2025 Assessment & Plan (1) Schizoaffective disorder: Plan: Continue current medical management. Appreciate psychiatry consultation and input. Dosages of Seroquel and doxepin have been adjusted according to their recommendations. Supportive care (2) COPD, moderate: Plan: Stable. Continue Duonebs prn (3) Hyperlipidemia: Plan: Stable. Continue statin therapy (4) Hypothyroidism: Plan: Stable. Continue levothyroxine (5) Neuropathy: Plan: b/l foot neuropathy. Gabapentin dosage has been down titrated this admission. (6) Seborrheic dermatitis: Plan: on bridge of nose and forehead. Treating with ketoconazole topical and hydrocortisone 2.5% topical once to twice daily applied to bridge of nose and forehead (avoiding eyes) as needed. Plan Eventual discharge to [facility] when arrangements are finalized Admission and Anticipated Discharge Date Admission Date: December 25, 2024 Subjective Alert. Hemodynamically stable. Seroquel and doxepin dosages have been adjusted according to psychiatry recommendations. Placement at [facility] remains pending. Review of Systems 2 Review of Systems: Constitutionalno fever or chills ENTno blurred vision, no double vision, no epistaxis, no sore throat Respiratoryno cough, no wheezing, no shortness of breath Cardiacno palpitations, no chest pain, no syncope Blaine nausea, vomiting, diarrhea, melena, hematochezia GUno urinary retention, no urinary incontinence, no dysuria, no hematuria Musculoskeletalno joint pain, no muscle tenderness Skinno bruising, no rashes, no pruritus Neurono isolated weakness, no paresthesia, no weakness Psychno depression, no anxiety Physical Exam 2 Physical Exam: General-alert and oriented x3, no fever, no chills HEENT-head atraumatic and normocephalic, pupils equal and reactive to light, extraocular muscles intact Neck-no lymphadenopathy or thyromegaly, trachea midline Chest-clear to auscultation. No rales, wheezing or rhonchi Cardiac-regular rate and rhythm, normal S1 and S2 Abdomen-normal bowel sounds, no hepatosplenomegaly Extremities-no cyanosis, clubbing, or edema Neuro-cranial nerves II through XII intact, motor and sensory function within normal limits, strength symmetrical, no focal deficits Psych-flat affect Results & Data Results & Data Vital Signs (Past 12 Hours) Vital Signs Temp Pulse Resp BP Pulse Ox O2 Del Method 02/04/25 07:04 36.5 C 92 H 18 100/65 97 Room Air Laboratory Results 01/13/25 06:07 01/13/25 06:07 PG Care Time/CCT Total # of Minutes Spent Total Time Spent with Patient: Total time spent is greater than 50% in coordination of care (as documented) at patient's floor/unit and/or counseling patient: Coding Level of Care Code 92384 SUB INP/OBS CARE 2/35MIN Diagnoses Schizoaffective disorder F25.9 COPD, moderate J44.9 Hyperlipidemia E78.5 Hypothyroidism E03.9 Neuropathy G62.9 Seborrheic dermatitis L21.9
--- NOTE | 2025-02-05 08:44 | Hospitalist Progress Note ---
"Date of Service February 05, 2025 Assessment & Plan (1) Schizoaffective disorder: (2) COPD, moderate: (3) Hypothyroidism: (4) Neuropathy: (5) Seborrheic dermatitis: Plan 64-year-old woman with past medical history of schizoaffective disorder, COPD, hypertension, hyperlipidemia who presented with altered mental status in context of an acute UTI. With her history of schizoaffective disorder, she has previously required structured living due to recurrent erratic behaviors and ps ychosis. She has been followed by the psychiatry team while admitted and has improved with medication changes. She remains in the hospital while awaiting placement. #AMS | Catatonia | Schizoaffective disorder - On doxepin, Seroquel and trazodone prior to admission for mental health. - Psych consulted and has met with patient multiple times throughout admission, most recently 02/03/25. Stable mental status, no evidence of active psychosis or catatonia. Medication refusal likely behavioral. 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 Dose adjusted throughout admission and current regimen appears to be beneficial and well-tolerated - Continue gabapentin 100 mg QAM, 300 mg HS #B12 deficiency/low normal - continue cyanocobalamin #Vitamin D deficiency - continue vitamin D supplement #HLD- continue atorvastatin #Hypothyroidism -TSH here normal at 1.4-Continue levothyroxine #GERD - continues Protonix #COPD - Duonebs available as needed DVT proph: Heparin SQ continued while inpatient Dispo: continued inpatient stay for eventual placement. Case management following Admission and Anticipated Discharge Date Admission Date: December 25, 2024 Supervising Physician Co-Signing Physician Notes PA Supervision Note: I did not personally see or examine the patient today, but I verified all whiteside points of RICK Mccallum's assessment and plan with the following exceptions/additions: None Subjective Attempted to round on patient x 2 however sleeping both times. Discussed with RN. No acute events overnight and no acute concerns today. RN reports patient appears to be doing better since her medications were adjusted by psychiatry this weekend. Allowed patient to rest and will round on her again tomorrow. Asked RN to contact me if there are any concerns or if patient would like to speak with me later today. Physical Exam Physical Exam: General: No acute distress, nondiaphoretic, well-developed, well-nourished. Sleeping soundly in bed. Cardiac: Well-perfused. Rate in the 70s. Pulm: Normal respiratory effort. 97% on room air. Results & Data Results & Data Vital Signs (Past 12 Hours) Vital Signs Temp Pulse Resp BP Pulse Ox O2 Del Method 02/05/25 08:00 97.9 F 77 16 90/59 L 97 Room Air PG Care Time/CCT Total # of Minutes Spent Total Time Spent with Patient: Total time spent is greater than 50% in coordination of care (as documented) at patient's floor/unit and/or counseling patient: Coding Level of Care Code 04842 SUB INP/OBS CARE 06/24MIN Diagnoses Schizoaffective disorder F25.9 COPD, moderate J44.9 Hypothyroidism E03.9 Neuropathy G62.9 Seborrheic dermatitis L21.9"
--- NOTE | 2025-02-06 16:32 | Hospitalist Progress Note ---
"Date of Service February 06, 2025 Assessment & Plan (1) Schizoaffective disorder: (2) COPD, moderate: (3) Hypothyroidism: (4) Neuropathy: Plan 64-year-old woman with past medical history of schizoaffective disorder, COPD, hypertension, hyperlipidemia who presented with altered mental status in context of an acute UTI. With her history of schizoaffective disorder, she has previously required structured living due to recurrent erratic behaviors and psychosis. She has been followed by the psychiatry team while admitted and has improved with medication changes. She remains in the hospital while awaiting placement. #AMS | Catatonia | Schizoaffective disorder - On doxepin, Seroquel and trazodone prior to admission for mental health. - Psych consulted and has met with patient multiple times throughout admission, most recently 02/03/25. Stable mental status, no evidence of active psychosis or catatonia. Medication refusal likely behavioral. Psych had slight concern for akathisia with Seroquel so Seroquel was reduced on 02/03 - Continue Seroquel 150 mg Q7PM, doxepin 75 mg Q7PM - Asked for psych to reevaluate Juliana 02/06 due to her refusing to interact with any staff members - she is somewhat responsive to pain and her meal trays were eaten - Awaiting placement for shelter, OOA following #Neuropathy bilateral foot neuropathy. Dose adjusted throughout admission and current regimen appears to be beneficial and well-tolerated - Continue gabapentin 100 mg QAM, 300 mg HS #B12 deficiency/low normal - continue cyanocobalamin #Vitamin D deficiency - continue vitamin D supplement #HLD- continue atorvastatin #Hypothyroidism -TSH here normal at 1.4-Continue levothyroxine #GERD - continues Protonix #COPD - Duonebs available as needed DVT proph: Heparin SQ continued while inpatient Dispo: continued inpatient stay for eventual placement. Case management f [facility] Admission and Anticipated Discharge Date Admission Date: December 25, 2024 Supervising Physician Co-Signing Physician Notes PA Supervision Note: I did not personally see or examine the patient today, but I verified all whiteside points of RICK Mccallum's assessment and plan with the following exceptions/additions: None Subjective Patient seen and evaluated bedside. She is unresponsive to verbal stimuli. She had some response to painful stimuli. RN reports she has refused to acknowledge any staff members who have entered her room today. However, her breakfast and lunch trays were eaten. Her vital signs are stable. Asked for psych to reevaluate patient given recent medication changes; their service is very busy today and unfortunately understaffed so they we will try to see her later tonight otherwise we will see her tomorrow. No additional complaints or concerns at this time. Physical Exam Physical Exam: General: No acute distress, nondiaphoretic, well-developed, well-nourished. Skin: Warm, dry. No peripheral edema noted. HEENT: PERRLA. Moist mucous membranes. Cardiac: Regular rate and rhythm without murmurs gallops or rubs. Pulm: Clear to auscultation bilaterally without wheezes, rales or rhonchi. Normal respiratory effort. 98% on room air. Abdominal: Soft, nontender, nondistended. Bowel sounds present. Neuro: Unresponsive to verbal stimuli. Somewhat responsive to painful stimuli. Will not follow commands. No focal neurological deficits. Results & Data Results & Data Vital Signs (Past 12 Hours) Vital Signs Temp Pulse Resp BP Pulse Ox O2 Del Method 02/06/25 07:51 99.5 F 126 H 16 135/84 98 Room Air PG Care Time/CCT Total # of Minutes Spent Total Time Spent with Patient: Total time spent is greater than 50% in coordination of care (as documented) at patient's floor/unit and/or counseling patient: Coding Level of Care Code 23726 SUB INP/OBS CARE 2/35MIN Diagnoses Schizoaffective disorder F25.9 COPD, moderate J44.9 Hypothyroidism E03.9 Neuropathy G62.9"
--- NOTE | 2025-02-07 17:50 | Hospitalist Progress Note ---
"Date of Service February 07, 2025 Assessment & Plan (1) Schizoaffective disorder: (2) COPD, moderate: (3) Hypothyroidism: (4) Neuropathy: Plan 64-year-old woman with past medical history of schizoaffective disorder, COPD, hypertension, hyperlipidemia who presented with altered mental status in context of an acute UTI. With her history of schizoaffective disorder, she has previously required structured living due to recurrent erratic behaviors and psychosis. She has been followed by the psychiatry team while admitted and has improved with medication changes. She remains in the hospital while awaiting placement. #AMS | Catatonia | Schizoaffective disorder - On doxepin, Seroquel and trazodone prior to admission for mental health. - Psych consulted and has met with patient multiple times throughout admission, most recently 02/03/25. Stable mental status, no evidence of active psychosis or catatonia. She has a longstanding history of periods where she refuses medication, lays in bed and will not open eyes for staff, etc. - this is a behavioral response and is not due to medications. Continue to ignore poor/negative behaviors and positively reinforce appropriate behaviors. 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 Dose adjusted throughout admission and current regimen appears to be beneficial and well-tolerated - Continue gabapentin 100 mg QAM, 300 mg HS #B12 deficiency/low normal - continue cyanocobalamin #Vitamin D deficiency - continue vitamin D supplement #HLD- continue atorvastatin #Hypothyroidism -TSH here normal at 1.4-Continue levothyroxine #GERD - continues Protonix #COPD - Duonebs available as needed DVT proph: Heparin SQ continued while inpatient Dispo: continued inpatient stay for eventual placement. Case management following Discussed case, behaviors, and recommendations with psychiatry and nursing staff Admission and Anticipated Discharge Date Admission Date: December 25, 2024 Supervising Physician Co-Signing Physician Notes RICK Supervision Note: I did not personally see or examine the patient today, but I verified all whiteside points of RICK Mccallum's assessment and plan with the following exceptions/additions: None Subjective Patient seen and evaluated at bedside chair. She is alert and responsive today. She denies any complaints or concerns. She notes she has increased stress at times but feels well currently. Continuing to wait for placement. Physical Exam Physical Exam: General: No acute distress, nondiaphoretic, well-developed, well-nourished. Cardiac: Well-perfused. Rate in 80s. Pulm: Normal respiratory effort. 98% on room air. Neuro: A&O x3. No focal neurological deficits. Results & Data Results & Data Vital Signs (Past 12 Hours) Vital Signs Temp Pulse BP Pulse Ox O2 Del Method 02/07/25 16:03 98.1 F 84 124/87 98 Room Air 02/07/25 08:30 Room Air 02/07/25 07:14 97.9 F 83 137/80 95 Room Air PG Care Time/CCT Total # of Minutes Spent Total Time Spent with Patient: Total time spent is greater than 50% in coordination of care (as documented) at patient's floor/unit and/or counseling patient: Coding Level of Care Code 50758 SUB INP/OBS CARE 3/50MIN Diagnoses Schizoaffective disorder F25.9 COPD, moderate J44.9 Hypothyroidism E03.9 Neuropathy G62.9"
--- NOTE | 2025-02-08 17:32 | Hospitalist Progress Note ---
"Date of Service February 08, 2025 Assessment & Plan (1) Schizoaffective disorder: (2) COPD, moderate: (3) Hypothyroidism: (4) Neuropathy: Plan 64-year-old woman with past medical history of schizoaffective disorder, COPD, hypertension, hyperlipidemia who presented with altered mental status in context of an acute UTI. With her history of schizoaffective disorder, she has previously required structured living due to recurrent erratic behaviors and psychosis. She has been followed by the psychiatry team while admitted and has improved with medication changes. She remains in the hospital while awaiting placement. #AMS | Catatonia | Schizoaffective disorder - On doxepin, Seroquel and trazodone prior to admission for mental health. - Psych consulted and has met with patient multiple times throughout admission, most recently 02/03/25. Stable mental status, no evidence of active psychosis or catatonia. She has a longstanding history of periods where she refuses medication, lays in bed and will not open eyes for staff, etc. - this is a behavioral response and is not due to medications. Continue to ignore poor/negative behaviors and positively reinforce appropriate behaviors. 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 Dose adjusted throughout admission and current regimen appears to be beneficial and well-tolerated - Continue gabapentin 100 mg QAM, 300 mg HS #B12 deficiency/low normal - continue cyanocobalamin #Vitamin D deficiency - continue vitamin D supplement #HLD- continue atorvastatin #Hypothyroidism -TSH here normal at 1.4-Continue levothyroxine #GERD - continues Protonix #COPD - Duonebs available as needed DVT proph: Heparin SQ continued while inpatient Dispo: continued inpatient stay for eventual placement. Case management following Admission and Anticipated Discharge Date Admission Date: December 25, 2024 Supervising Physician Co-Signing Physician Notes RICK Supervision Note: I did not personally see or examine the patient today, but I verified all whiteside points of RICK Mccallum's assessment and plan with the following exceptions/additions: None Subjective Patient seen and evaluated at bedside. She is refusing to participate in any degree of her care today including taking her medications, responding to staff members, or eating her meals. Physical Exam Physical Exam: General: No acute distress. Sleeping in bed. Cardiac: Well-perfused. Rate in 70s. Pulm: Normal respiratory effort. 95% on room air. Results & Data Results & Data Vital Signs (Past 12 Hours) Vital Signs Temp Pulse Resp BP BP Pulse Ox O2 Del Method 02/08/25 17:06 134/72 02/08/25 16:26 77 14 79/55 L 95 Room Air 02/08/25 08:36 98.2 F 88 14 92/59 L 92 Room Air PG Care Time/CCT Total # of Minutes Spent Total Time Spent with Patient: Total time spent is greater than 50% in coordination of care (as documented) at patient's floor/unit and/or counseling patient: Coding Level of Care Code 90390 SUB INP/OBS CARE 06/24MIN Diagnoses Schizoaffective disorder F25.9 COPD, moderate J44.9 Hypothyroidism E03.9 Neuropathy G62.9"
--- NOTE | 2025-02-09 14:42 | Hospitalist Progress Note ---
"Date of Service February 09, 2025 Assessment & Plan (1) Schizoaffective disorder: (2) COPD, moderate: (3) Hypothyroidism: (4) Neuropathy: Plan 64-year-old woman with past medical history of schizoaffective disorder, COPD, hypertension, hyperlipidemia who presented with altered mental status in context of an acute UTI. With her history of schizoaffective disorder, she has previously required structured living due to recurrent erratic behaviors and psychosis. She has been followed by the psychiatry team while admitted and has improved with medication changes. She remains in the hospital while awaiting placement. #AMS | Catatonia | Schizoaffective disorder - On doxepin, Seroquel and trazodone prior to admission for mental health. - Psych consulted and has met with patient multiple times throughout admission, most recently 02/03/25. Stable mental status, no evidence of active psychosis or catatonia. She has a longstanding history of periods where she refuses medication, lays in bed and will not open eyes for staff, etc. - this is a behavioral response and is not due to medications. Continue to ignore poor/negative behaviors and positively reinforce appropriate behaviors. - Psych had slight concern for akathisia with Seroquel so Seroquel was reduced on 02/03 - continue Seroquel 150 mg Q7PM, doxepin 75 mg Q7PM - Awaiting placement for retirement, OOA following #Neuropathy bilateral foot neuropathy. Dose adjusted throughout admission and current regimen appears to be beneficial and well-tolerated - Continue gabapentin 100 mg QAM, 300 mg HS #B12 deficiency/low normal - continue cyanocobalamin #Vitamin D deficiency - continue vitamin D supplement #HLD- continue atorvastatin #Hypothyroidism -TSH here normal at 1.4-Continue levothyroxine #GERD - continues Protonix #COPD - Duonebs available as needed DVT proph: Heparin SQ continued while inpatient Dispo: continued inpatient stay for eventual placement. Case management following Admission and Anticipated Discharge Date Admission Date: December 25, 2024 Supervising Physician Co-Signing Physician Notes RICK Supervision Note: I did not personally see or examine the patient today, but I verified all whiteside points of RICK Mccallum's assessment and plan with the following exceptions/additions: None Subjective Patient seen and evaluated bedside. She is continuing to refuse all care including taking her medications, checking her vital signs, or communicating with staff members. She is lying in bed, will not open her eyes. It does appear that she lunch. Case management note from today seems like patient did communicate with her case fitter. Continue to ignore poor behavior and enc ouraged good behavior when she displays it. Physical Exam Physical Exam: General: No acute distress. Sleeping in bed. Cardiac: Well-perfused. Rate in 80s. Pulm: Normal respiratory effort. 96% on room air. Results & Data Results & Data Vital Signs (Past 12 Hours) Vital Signs Temp Pulse Resp BP Pulse Ox O2 Del Method 02/09/25 11:46 98 H 18 91/65 L 96 Room Air 02/09/25 07:27 97.5 F L 83 18 105/66 94 Room Air PG Care Time/CCT Total # of Minutes Spent Total Time Spent with Patient: Total time spent is greater than 50% in coordination of care (as documented) at patient's floor/unit and/or counseling patient: Coding Level of Care Code 45874 SUB INP/OBS CARE 06/24MIN Diagnoses Schizoaffective disorder F25.9 COPD, moderate J44.9 Hypothyroidism E03.9 Neuropathy G62.9"
--- NOTE | 2025-02-10 14:53 | Hospitalist Progress Note ---
"Date of Service February 10, 2025 Assessment & Plan (1) Schizoaffective disorder: (2) COPD, moderate: (3) Hypothyroidism: (4) Neuropathy: Plan 64-year-old woman with past medical history of schizoaffective disorder, COPD, hypertension, hyperlipidemia who presented with altered mental status in context of an acute UTI. With her history of schizoaffective disorder, she has previously required structured living due to recurrent erratic behaviors and psychosis. She has been followed by the psychiatry team while admitted and has improved with medication changes. She remains in the hospital while awaiting placement. #AMS | Catatonia | Schizoaffective disorder - On doxepin, Seroquel and trazodone prior to admission for mental health. - Psych consulted and has met with patient multiple times throughout admission, most recently 02/03/25. Stable mental status, no evidence of active psychosis or catatonia. She has a longstanding history of periods where she refuses medication, lays in bed and will not open eyes for staff, etc. - this is a behavioral response and is not due to medications. Continue to ignore poor/negative behaviors and positively reinforce appropriate behaviors. 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 Dose adjusted throughout admission and current regimen appears to be beneficial and well-tolerated - Continue gabapentin 100 mg QAM, 300 mg HS #B12 deficiency/low normal - continue cyanocobalamin #Vitamin D deficiency - continue vitamin D supplement #HLD- continue atorvastatin #Hypothyroidism -TSH here normal at 1.4-Continue levothyroxine #GERD - continues Protonix #COPD - Duonebs available as needed DVT proph: Heparin SQ continued while inpatient Dispo: continued inpatient stay for eventual placement. Case management following Admission and Anticipated Discharge Date Admission Date: December 25, 2024 Supervising Physician Co-Signing Physician Notes RICK Supervision Note: I did not personally see or examine the patient today, but I verified all whiteside points of RICK Mccallum's assessment and plan with the following exceptions/additions: None Subjective Patient seen and evaluated in bedside chair. She is cooperative with her care today. She took her morning medications. She denies any acute complaints or concerns at this time. She is thankful for today's visit. Continuing to wait for placement. Physical Exam Physical Exam: General: No acute distress, nondiaphoretic, well-developed, well-nourished. Sitting up in bedside chair. Skin: Warm, dry. No peripheral edema noted. Cardiac: Well-perfused. Rate in 60s. Pulm: Normal respiratory effort. 97% on room air. Neuro: A&O x3. No focal neurological deficits. Results & Data Results & Data Vital Signs (Past 12 Hours) Vital Signs Temp Pulse Resp BP Pulse Ox O2 Del Method 02/10/25 08:00 Room Air 02/10/25 06:56 98.2 F 67 16 99/65 L 97 Room Air PG Care Time/CCT Total # of Minutes Spent Total Time Spent with Patient: Total time spent is greater than 50% in coordination of care (as documented) at patient's floor/unit and/or counseling patient: Coding Level of Care Code 65138 SUB INP/OBS CARE 06/24MIN Diagnoses Schizoaffective disorder F25.9 COPD, moderate J44.9 Hypothyroidism E03.9 Neuropathy G62.9"
--- NOTE | 2025-02-11 13:42 | Hospitalist Progress Note ---
"Date of Service February 11, 2025 Assessment & Plan (1) Schizoaffective disorder: (2) COPD, moderate: (3) Hypothyroidism: (4) Neuropathy: Plan 64-year-old woman with past medical history of schizoaffective disorder, COPD, hypertension, hyperlipidemia who presented with altered mental status in context of an acute UTI. With her history of schizoaffective disorder, she has previously required structured living due to recurrent erratic behaviors and psychosis. She has been followed by the psychiatry team while admitted and has improved with medication changes. She remains in the hospital while awaiting placement. #AMS | Catatonia | Schizoaffective disorder - On doxepin, Seroquel and trazodone prior to admission for mental health. - Psych consulted and has met with patient multiple times throughout admission, most recently 02/03/25. Stable mental status, no evidence of active psychosis or catatonia. She has a longstanding history of periods where she refuses medication, lays in bed and will not open eyes for staff, etc. - this is a behavioral response and is not due to medications. Continue to ignore poor/negative behaviors and positively reinforce appropriate behaviors. 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 Dose adjusted throughout admission and current regimen appears to be beneficial and well-tolerated - Continue gabapentin 100 mg QAM, 300 mg HS #B12 deficiency/low normal - continue cyanocobalamin #Vitamin D deficiency - continue vitamin D supplement #HLD- continue atorvastatin #Hypothyroidism -TSH here normal at 1.4-Continue levothyroxine #GERD - continues Protonix #COPD - Duonebs available as needed DVT proph: Heparin SQ continued while inpatient Dispo: continued inpatient stay for eventual placement. Case management following Admission and Anticipated Discharge Date Admission Date: December 25, 2024 Supervising Physician Co-Signing Physician Notes RICK Supervision Note: I did not personally see or examine the patient today, but I verified all whiteside points of RICK Mccallum's assessment and plan with the following exceptions/additions: None Subjective Patient seen and evaluated at bedside. She has been cooperative with her care today. She was out of bed in the bedside chair for both breakfast and lunch. She took her morning medications. She reports feeling tired today due to not sleeping well overnight. No additional complaints or concerns at this time. Physical Exam Physical Exam: General: No acute distress, nondiaphoretic, well-developed, well-nourished. Sitting up in bedside chair. Skin: Warm, dry. No peripheral edema noted. Cardiac: Well-perfused. Rate in 80s. Pulm: Normal respiratory effort. 96% on room air. Neuro: A&O x3. No focal neurological deficits. Results & Data Results & Data Vital Signs (Past 12 Hours) Vital Signs Temp Pulse Resp BP Pulse Ox O2 Del Method 02/11/25 07:13 97.9 F 84 16 100/62 96 Room Air PG Care Time/CCT Total # of Minutes Spent Total Time Spent with Patient: Total time spent is greater than 50% in coordination of care (as documented) at patient's floor/unit and/or counseling patient: Coding Level of Care Code 66531 SUB INP/OBS CARE 06/24MIN Diagnoses Schizoaffective disorder F25.9 COPD, moderate J44.9 Hypothyroidism E03.9 Neuropathy G62.9"
--- NOTE | 2025-02-12 13:14 | Hospitalist Progress Note ---
"Date of Service February 12, 2025 Assessment & Plan (1) Schizoaffective disorder: (2) COPD, moderate: (3) Hypothyroidism: (4) Neuropathy: Plan 64-year-old woman with past medical history of schizoaffective disorder, COPD, hypertension, hyperlipidemia who presented with altered mental status in context of an acute UTI. With her history of schizoaffective disorder, she has previously required structured living due to recurrent erratic behaviors and psychosis. She has been followed by the psychiatry team while admitted and has improved with medication changes. She remains in the hospital while awaiting placement. #AMS | Catatonia | Schizoaffective disorder - On doxepin, Seroquel and trazodone prior to admission for mental health. - Psych consulted and has met with patient multiple times throughout admission, most recently 02/03/25. Stable mental status, no evidence of active psychosis or catatonia. She has a longstanding history of periods where she refuses medication, lays in bed and will not open eyes for staff, etc. - this is a behavioral response and is not due to medications. Continue to ignore poor/negative behaviors and positively reinforce appropriate behaviors. 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 Dose adjusted throughout admission and current regimen appears to be beneficial and well-tolerated - Continue gabapentin 100 mg QAM, 300 mg HS #B12 deficiency/low normal - continue cyanocobalamin #Vitamin D deficiency - continue vitamin D supplement #HLD- continue atorvastatin #Hypothyroidism -TSH here normal at 1.4-Continue levothyroxine #GERD - continues Protonix #COPD - Duonebs available as needed DVT proph: Heparin SQ continued while inpatient Dispo: continued inpatient stay for eventual placement. Case management following Admission and Anticipated Discharge Date Admission Date: December 25, 2024 Supervising Physician Co-Signing Physician Notes RICK Supervision Note: I did not personally see or examine the patient today, but I verified all whiteside points of RICK Mccallum's assessment and plan with the following exceptions/additions: None Subjective Patient seen and evaluated at bedside. She is sleeping in bed, would not open her eyes to my voice. Discussed with RN and she has been cooperative with her care today. She took her morning medications and has eaten her meals. No acute complaints or concerns at this time. Physical Exam Physical Exam: General: No acute distress. Sleeping in bed. Cardiac: Well-perfused. Rate in 70s. Pulm: Normal respiratory effort. 95% on room air. Results & Data Results & Data Vital Signs (Past 12 Hours) Vital Signs Temp Pulse Resp BP Pulse Ox O2 Del Method 02/12/25 09:27 98.6 F 76 16 105/62 97 Room Air PG Care Time/CCT Total # of Minutes Spent Total Time Spent with Patient: Total time spent is greater than 50% in coordination of care (as documented) at patient's floor/unit and/or counseling patient: Coding Level of Care Code 30236 SUB INP/OBS CARE 06/24MIN Diagnoses Schizoaffective disorder F25.9 COPD, moderate J44.9 Hypothyroidism E03.9 Neuropathy G62.9"
--- NOTE | 2025-02-13 12:47 | Hospitalist Progress Note ---
"Date of Service February 13, 2025 Assessment & Plan (1) Schizoaffective disorder: (2) COPD, moderate: (3) Hypothyroidism: (4) Neuropathy: Plan 64-year-old woman with past medical history of schizoaffective disorder, COPD, hypertension, hyperlipidemia who presented with altered mental status in context of an acute UTI. With her history of schizoaffective disorder, she has previously required structured living due to recurrent erratic behaviors and psychosis. She has been followed by the psychiatry team while admitted and has improved with medication changes. She remains in the hospital while awaiting placement. #AMS | Catatonia | Schizoaffective disorder - On doxepin, Seroquel and trazodone prior to admission for mental health. Psych consulted and has met with patient multiple times throughout admission, most recently 02/03/25. Stable mental status, no evidence of active psychosis or catatonia. She has a longstanding history of periods where she refuses medication, lays in bed and will not open eyes for staff, etc. - this is a behavioral response and is not due to medications. Continue to ignore poor/negative behaviors and positively reinforce appropriate behaviors. 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 Dose adjusted throughout admission and current regimen appears to be beneficial and well-tolerated Continue gabapentin 100 mg QAM, 300 mg HS #B12 deficiency/low normal - continue cyanocobalamin #Vitamin D deficiency - continue vitamin D supplement #HLD- continue atorvastatin #Hypothyroidism -TSH here normal at 1.4-Continue levothyroxine #GERD - continues Protonix #COPD - Duonebs available as needed pt reporting her stools are loose - has been refusing metamucil since 01/18, will continue to encourage DVT proph: Heparin SQ continued while inpatient Dispo: continued inpatient stay for eventual placement. Case management following Admission and Anticipated Discharge Date Admission Date: December 25, 2024 Supervising Physician Co-Signing Physician Notes Attending Attestation - Chart reviewed, care plan d/w RICK Mccormick. I agree w/ the whiteside components of her documentation. Louie Medina MD Subjective Patient seen sitting up in the chair - reports she is having loose stools and this has been going on since she has been here concerns about her anxiety medications - making her muscles tense good appetite, took her meds this morning Review of Systems Review of Systems: All systems reviewed & are unremarkable except as noted in Subjective Physical Exam Physical Exam: General: NAD, VS as above Resp: normal respiratory effort, lungs clear to auscultation CV: RRR, no murmur, Abd: normal bowel sounds, non tender, no hepatosplenomegaly Extremities: Moves all extremities, no edema Results & Data Results & Data Vital Signs (Past 12 Hours) Vital Signs Temp Pulse Resp BP Pulse Ox O2 Del Method 02/13/25 09:00 Room Air 02/13/25 08:15 98.2 F 78 16 103/65 97 Room Air PG Care Time/CCT Total # of Minutes Spent Total Time Spent with Patient: Total time spent is greater than 50% in coordination of care (as documented) at patient's floor/unit and/or counseling patient: Coding Level of Care Code 52497 SUB INP/OBS CARE 06/24MIN Diagnoses Schizoaffective disorder F25.9 COPD, moderate J44.9 Hypothyroidism E03.9 Neuropathy G62.9"
--- NOTE | 2025-02-14 09:56 | Hospitalist Progress Note ---
"Date of Service February 14, 2025 Assessment & Plan (1) Schizoaffective disorder: (2) COPD, moderate: (3) Hypothyroidism: (4) Neuropathy: Plan 64-year-old woman with past medical history of schizoaffective disorder, COPD, hypertension, hyperlipidemia who presented with altered mental status in context of an acute UTI. With her history of schizoaffective disorder, she has previously required structured living due to recurrent erratic behaviors and psychosis. She has been followed by the psychiatry team while admitted and has improved with medication changes. She remains in the hospital while awaiting placement. #AMS | Catatonia | Schizoaffective disorder - On doxepin, Seroquel and trazodone prior to admission for mental health. Psych consulted and has met with patient multiple times throughout admission, most recently 02/03/25. Stable mental status, no evidence of active psychosis or catatonia. She has a longstanding history of periods where she refuses medication, lays in bed and will not open eyes for staff, etc. - this is a behavioral response and is not due to medications. Continue to ignore poor/negative behaviors and positively reinforce appropriate behaviors. 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 Dose adjusted throughout admission and current regimen appears to be beneficial and well-tolerated Continue gabapentin 100 mg QAM, 300 mg HS #B12 deficiency/low normal - continue cyanocobalamin #Vitamin D deficiency - continue vitamin D supplement #HLD- continue atorvastatin #Hypothyroidism -TSH here normal at 1.4-Continue levothyroxine #GERD - continues Protonix #COPD - Duonebs available as needed pt reporting her stools are loose - has been refusing metamucil since 01/18, will continue to encourage DVT proph: Heparin SQ continued while inpatient Dispo: continued inpatient stay for eventual placement. Case management following Admission and Anticipated Discharge Date Admission Date: December 25, 2024 Subjective Patient seen lying in bed, currently not speaking to me, but does blink her eyes Was speaking to her nurse earlier and allowed her to get vitals. Review of Systems Review of Systems: Unobtainable due to mental health condition Physical Exam Physical Exam: General: NAD, vitals as above, lying in bed Pulm: breathing unlabored CV: well perfused extremities: moves all extremities Results & Data Results & Data Vital Signs (Past 12 Hours) Vital Signs Temp Pulse Resp BP Pulse Ox O2 Del Method 02/14/25 07:28 97.5 F L 72 14 102/68 96 Room Air 02/13/25 23:28 98.2 F 85 18 109/67 98 Room Air PG Care Time/CCT Total # of Minutes Spent Total Time Spent with Patient: Total time spent is greater than 50% in coordination of care (as documented) at patient's floor/unit and/or counseling patient: Coding Level of Care Code 84936 SUB INP/OBS CARE 06/24MIN Diagnoses Schizoaffective disorder F25.9 COPD, moderate J44.9 Hypothyroidism E03.9 Neuropathy G62.9"
--- NOTE | 2025-02-15 11:31 | Hospitalist Progress Note ---
Date of Service February 15, 2025 Assessment & Plan (1) Schizoaffective disorder: (2) COPD, moderate: (3) Hypothyroidism: (4) Neuropathy: Plan 64-year-old woman with past medical history of schizoaffective disorder, COPD, hypertension, hyperlipidemia who presented with altered mental status in context of an acute UTI. With her history of schizoaffective disorder, she has previously required structured living due to recurrent erratic behaviors and psychosis. She has been followed by the psychiatry team while admitted and has improved with medication changes. She remains in the hospital while awaiting placement. #AMS | Catatonia | Schizoaffective disorder - On doxepin, Seroquel and trazodone prior to admission for mental health. Psych consulted and has met with patient multiple times throughout admission, most recently 02/03/25. Stable mental status, no evidence of active psychosis or catatonia. She has a longstanding history of periods where she refuses medication, lays in bed and will not open eyes for staff, etc. - this is a behavioral response and is not due to medications. Continue to ignore poor/negative behaviors and positively reinforce appropriate behaviors. 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 Dose adjusted throughout admission and current regimen appears to be beneficial and well-tolerated Continue gabapentin 100 mg QAM, 300 mg HS #B12 deficiency/low normal - continue cyanocobalamin #Vitamin D deficiency - continue vitamin D supplement #HLD- continue atorvastatin #Hypothyroidism -TSH here normal at 1.4-Continue levothyroxine #GERD - continues Protonix #COPD - Duonebs available as needed pt reporting her stools are loose - has been refusing metamucil since 01/18, will continue to encourage, unable to provide reasoning why she is refusing DVT proph: Heparin SQ continued while inpatient Dispo: continued inpatient stay for eventual placement. Case management following Admission and Anticipated Discharge Date Admission Date: December 25, 2024 Subjective Patient seen lying in bed, awake does answer some of my questions, but others she just stares at me and then says "youll find out when youre in alf" Unwilling to tell me what wrong doing is happening to her that everyone who is taking care of her will be in alf Review of Systems Review of Systems: All systems reviewed & are unremarkable except as noted in Subjective Physical Exam Physical Exam: General: NAD, vitals as above, lying in bed Pulm: breathing unlabored CV: well perfused extremities: moves all extremities Results & Data Results & Data Vital Signs (Past 12 Hours) Vital Signs Temp Pulse Resp BP Pulse Ox O2 Del Method 02/15/25 07:01 98.6 F 86 16 113/73 98 Room Air 02/14/25 23:38 98.1 F 83 16 98/62 L 96 Room Air PG Care Time/CCT Total # of Minutes Spent Total Time Spent with Patient: Total time spent is greater than 50% in coordination of care (as documented) at patient's floor/unit and/or counseling patient: Coding Level of Care Code 78736 SUB INP/OBS CARE 06/24MIN Diagnoses Schizoaffective disorder F25.9 COPD, moderate J44.9 Hypothyroidism E03.9 Neuropathy G62.9
--- NOTE | 2025-02-15 17:23 | Communication Note ---
Date of Service: February 15, 2025 Earlier this afternoon I was notified by nursing staff that he was sitting out in the waiting room of 3 E. At this time she was being nondisruptive to other visitors or staff and was report waiting for someone. I stopped by to see her and she would not tell me who she was waiting for and could not be redirected into her room. I allowed her to stay in the waiting room and placed a one-to-one order as needed. At 1550: I was notified that Juliana boyiensnehal had arrived to the unit and she had gotten dressed and was attempting to leave. Security was notified and met the patient and nursing staff at the main entrance and brought her back to the room. I visited with Juliana back in her room and she is very insistent that she is not staying in the hospital for another night. She she is very adamant that she wants to leave but currently there is no plan in place. She was brought to the hospital after being unresponsive and her boyfriend notes that he was having difficulty taking care of her. . Initially, her boyfriend, Louie, was willing to take Juliana back to stay with him. As Juliana and I continue to discuss what it would mean for her to leave AMA and the risk associated, Louie became more weary of this plan. Eventually Louie decided that he was not willing to transport her home today and did not want her staying with them and that Louie had left to go home. I did notify him that if Juliana was going to be discharged he would be notified by a provider or case management and that if he wanted to bring Juliana back into the home that he could talk to case management or provider to have that arranged. I talked to the psychiatry team who confirmed she did not meet criteria for 302 and from a psychiatric standpoint she is able to leave AGAINST MEDICAL ADVICE. I talked to case management, and from their standpoint there is no office of aging mandate that she has to go to a facility. I discussed with Juliana that she is allowed to leave AGAINST MEDICAL ADVICE, she was able to repeat the risks associated with this back to me, and while a poor decision I do think she exhibits capacity to make this decision. However, I did tell her that if she was going to leave AGAINST MEDICAL ADVICE she needs to secure a ride and a place to stay tonight and she would not be discharged to the street. Nursing staff and security staff are aware of this plan. Security was at the door talking to the patient when I left. I did place an order for 5 mg IM Zyprexa if her behaviors continue to escalate. If she does receive this then we will have to reevaluate her capacity to leave AGAINST MEDICAL ADVICE.
--- NOTE | 2025-02-16 11:56 | Hospitalist Progress Note ---
Date of Service February 16, 2025 Assessment & Plan (1) Schizoaffective disorder: Plan: Continue current medical management. Appreciate psychiatry consultation and input. Dosages of Seroquel and doxepin have been adjusted according to their recommendations. Supportive care (2) COPD, moderate: Plan: Stable. Continue Duonebs prn (3) Hyperlipidemia: Plan: Stable. Continue statin therapy (4) Hypothyroidism: Plan: Stable. Continue levothyroxine (5) Neuropathy: Plan: b/l foot neuropathy. Gabapentin dosage has been down titrated this admission. (6) Seborrheic dermatitis: Plan: on bridge of nose and forehead. Treating with ketoconazole topical and hydrocortisone 2.5% topical once to twice daily applied to bridge of nose and forehead (avoiding eyes) as needed. Plan Eventual discharge to personal-half-way when arrangements are finalized. Psychiatry has determined that the patient can leave AMA if she decides to. She is not a 302 Admission and Anticipated Discharge Date Admission Date: December 25, 2024 Subjective The patient is sitting in her room at the time of my examination. She is pleasant with me. She appears to be oriented. Afebrile and vital signs are stable. Yesterday's communication entry noted Review of Systems 2 Review of Systems: Constitutionalno fever or chills ENTno blurred vision, no double vision, no epistaxis, no sore throat Respiratoryno cough, no wheezing, no shortness of breath Cardiacno palpitations, no chest pain, no syncope Blaine nausea, vomiting, diarrhea, melena, hematochezia GUno urinary retention, no urinary incontinence, no dysuria, no hematuria Musculoskeletalno joint pain, no muscle tenderness Skinno bruising, no rashes, no pruritus Neurono isolated weakness, no paresthesia, no weakness Psychno depression, no anxiety Physical Exam 2 Physical Exam: General-alert and oriented x3, no fever, no chills HEENT-head atraumatic and normocephalic, pupils equal and reactive to light, extraocular muscles intact Neck-no lymphadenopathy or thyromegaly, trachea midline Chest-clear to auscultation. No rales, wheezing or rhonchi Cardiac-regular rate and rhythm, normal S1 and S2 Abdomen-normal bowel sounds, no hepatosplenomegaly Extremities-no cyanosis, clubbing, or edema Neuro-cranial nerves II through XII intact, motor and sensory function within normal limits, strength symmetrical, no focal deficits Psych-flat affect Results & Data Results & Data Vital Signs (Past 12 Hours) Vital Signs Temp Pulse Resp BP Pulse Ox O2 Del Method 02/16/25 07:19 36.5 C 75 18 103/65 97 Room Air Laboratory Results 01/13/25 06:07 01/13/25 06:07 PG Care Time/CCT Total # of Minutes Spent Total Time Spent with Patient: Total time spent is greater than 50% in coordination of care (as documented) at patient's floor/unit and/or counseling patient: Coding Level of Care Code 85345 SUB INP/OBS CARE 2/35MIN Diagnoses Schizoaffective disorder F25.9 COPD, moderate J44.9 Hyperlipidemia E78.5 Hypothyroidism E03.9 Neuropathy G62.9 Seborrheic dermatitis L21.9
--- NOTE | 2025-02-17 10:58 | Hospitalist Progress Note ---
Date of Service February 17, 2025 Assessment & Plan (1) Schizoaffective disorder: Plan: Continue current medical management. Appreciate psychiatry consultation and input. Dosages of Seroquel and doxepin have been adjusted according to their recommendations. Supportive care (2) COPD, moderate: Plan: Stable. Continue Duonebs prn (3) Hyperlipidemia: Plan: Stable. Continue statin therapy (4) Hypothyroidism: Plan: Stable. Continue levothyroxine (5) Neuropathy: Plan: b/l foot neuropathy. Gabapentin dosage has been down titrated this admission. (6) Seborrheic dermatitis: Plan: on bridge of nose and forehead. Treating with ketoconazole topical and hydrocortisone 2.5% topical once to twice daily applied to bridge of nose and forehead (avoiding eyes) as needed. Plan Eventual discharge to [facility] when arrangements are finalized. Psychiatry has determined that the patient can leave AMA if she decides to. She is not a 302 Admission and Anticipated Discharge Date Admission Date: December 25, 2024 Subjective No new issues per nursing staff. She is asleep at the time of my rounds Review of Systems 2 Review of Systems: Constitutionalno fever or chills ENTno blurred vision, no double vision, no epistaxis, no sore throat Respiratoryno cough, no wheezing, no shortness of breath Cardiacno palpitations, no chest pain, no syncope Blaine nausea, vomiting, diarrhea, melena, hematochezia GUno urinary retention, no urinary incontinence, no dysuria, no hematuria Musculoskeletalno joint pain, no muscle tenderness Skinno bruising, no rashes, no pruritus Neurono isolated weakness, no paresthesia, no weakness Psychno depression, no anxiety Physical Exam 2 Physical Exam: General-asleep, no fever HEENT-head atraumatic and normocephalic, pupils equal and reactive to light, extraocular muscles intact Neck-no lymphadenopathy or thyromegaly, trachea midline Chest-clear to auscultation. No rales, wheezing or rhonchi Cardiac-regular rate and rhythm, normal S1 and S2 Abdomen-normal bowel sounds, no hepatosplenomegaly Extremities-no cyanosis, clubbing, or edema Neuro-asleep. Cannot assess Psych-asleep. Cannot assess Results & Data Results & Data Vital Signs (Past 12 Hours) Vital Signs Temp Pulse Resp BP Pulse Ox O2 Del Method 02/16/25 23:06 36.7 C 84 14 106/63 96 Room Air Laboratory Results 01/13/25 06:07 01/13/25 06:07 PG Care Time/CCT Total # of Minutes Spent Total Time Spent with Patient: Total time spent is greater than 50% in coordination of care (as documented) at patient's floor/unit and/or counseling patient: Coding Level of Care Code 61775 SUB INP/OBS CARE 2/35MIN Diagnoses Schizoaffective disorder F25.9 COPD, moderate J44.9 Hyperlipidemia E78.5 Hypothyroidism E03.9 Neuropathy G62.9 Seborrheic dermatitis L21.9
--- NOTE | 2025-02-18 12:44 | Hospitalist Progress Note ---
Date of Service February 18, 2025 Assessment & Plan (1) Schizoaffective disorder: Plan: Continue current medical management. Appreciate psychiatry consultation and input. Dosages of Seroquel and doxepin have been adjusted according to their recommendations. Supportive care (2) COPD, moderate: Plan: Stable. Continue Duonebs prn (3) Hyperlipidemia: Plan: Stable. Continue statin therapy (4) Hypothyroidism: Plan: Stable. Continue levothyroxine (5) Neuropathy: Plan: b/l foot neuropathy. Gabapentin dosage has been down titrated this admission. (6) Seborrheic dermatitis: Plan: on bridge of nose and forehead. Treating with ketoconazole topical and hydrocortisone 2.5% topical once to twice daily applied to bridge of nose and forehead (avoiding eyes) as needed. Plan Eventual discharge to [facility] when arrangements are finalized. Psychiatry has determined that the patient can leave AMA if she decides to. She is not a 302 Admission and Anticipated Discharge Date Admission Date: December 25, 2024 Subjective No new problems per nursing staff. Vitals are stable. She is sleeping again at the time of my rounds Review of Systems 2 Review of Systems: Constitutionalno fever or chills ENTno blurred vision, no double vision, no epistaxis, no sore throat Respiratoryno cough, no wheezing, no shortness of breath Cardiacno palpitations, no chest pain, no syncope Blaine nausea, vomiting, diarrhea, melena, hematochezia GUno urinary retention, no urinary incontinence, no dysuria, no hematuria Musculoskeletalno joint pain, no muscle tenderness Skinno bruising, no rashes, no pruritus Neurono isolated weakness, no paresthesia, no weakness Psychno depression, no anxiety Physical Exam 2 Physical Exam: General-asleep, no fever HEENT-head atraumatic and normocephalic, pupils equal and reactive to light, extraocular muscles intact Neck-no lymphadenopathy or thyromegaly, trachea midline Chest-clear to auscultation. No rales, wheezing or rhonchi Cardiac-regular rate and rhythm, normal S1 and S2 Abdomen-normal bowel sounds, no hepatosplenomegaly Extremities-no cyanosis, clubbing, or edema Neuro-asleep. Cannot assess Psych-asleep. Cannot assess Results & Data Results & Data Vital Signs (Past 12 Hours) Vital Signs Temp Pulse Resp BP Pulse Ox O2 Del Method 02/18/25 10:49 Room Air 02/18/25 10:05 36.8 C 88 12 91/64 L 98 Room Air Laboratory Results 01/13/25 06:07 01/13/25 06:07 PG Care Time/CCT Total # of Minutes Spent Total Time Spent with Patient: Total time spent is greater than 50% in coordination of care (as documented) at patient's floor/unit and/or counseling patient: Coding Level of Care Code 41052 SUB INP/OBS CARE 2/35MIN Diagnoses Schizoaffective disorder F25.9 COPD, moderate J44.9 Hyperlipidemia E78.5 Hypothyroidism E03.9 Neuropathy G62.9 Seborrheic dermatitis L21.9
--- NOTE | 2025-02-19 11:19 | Hospitalist Progress Note ---
"Date of Service February 19, 2025 Assessment & Plan (1) Schizoaffective disorder: (2) COPD, moderate: (3) Hypothyroidism: (4) Neuropathy: Plan 64-year-old woman with past medical history of schizoaffective disorder, COPD, hypertension, hyperlipidemia who presented with altered mental status in context of an acute UTI. With her history of schizoaffective disorder, she has previously required structured living due to recurrent erratic behaviors and psychosis. She has been followed by the psychiatry team while admitted and has improved with medication changes. She remains in the hospital while awaiting placement. #AMS | Catatonia | Schizoaffective disorder - On doxepin, Seroquel and trazodone prior to admission for mental health. - Psych consulted and has met with patient multiple times throughout admission, most recently 02/03/25. Stable mental status, no evidence of active psychosis or catatonia. She has a longstanding history of periods where she refuses medication, lays in bed and will not open eyes for staff, etc. - this is a behavioral response and is not due to medications. Continue to ignore poor/negative behaviors and positively reinforce appropriate behaviors. 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 Dose adjusted throughout admission and current regimen appears to be beneficial and well-tolerated - Continue gabapentin 100 mg QAM, 300 mg HS #B12 deficiency/low normal - continue cyanocobalamin #Vitamin D deficiency - continue vitamin D supplement #HLD - continue atorvastatin #Hypothyroidism - TSH here normal at 1.4. Continue levothyroxine #GERD - continue Protonix #COPD - Duonebs available as needed DVT proph: Heparin SQ continued while inpatient Dispo: continued inpatient stay for eventual placement. Case management following Admission and Anticipated Discharge Date Admission Date: December 25, 2024 Supervising Physician Co-Signing Physician Notes RICK Supervision Note: I did not personally see or examine the patient today, but I verified all whiteside points of RICK Mccallum's assessment and plan with the following exceptions/additions: None Subjective Patient seen and evaluated in bedside chair. She reports feeling well at this time. She reports some nights she sleeps well and other nights she has difficulty falling/staying asleep. She has a good appetite. She reports her hair feels dry from the shampoo and conditioner at the hospital. No additional complaints or concerns at this time. Continuing to wait for placement. Physical Exam Physical Exam: General: No acute distress, nondiaphoretic, well-developed, well-nourished. Sitting up in bedside chair. Skin: Warm, dry. No peripheral edema noted. Cardiac: Well-perfused. Rate in 70s. Pulm: Normal respiratory effort. 98% on room air. Neuro: A&O x3. No focal neurological deficits. Results & Data Results & Data Vital Signs (Past 12 Hours) Vital Signs Temp Pulse Resp BP Pulse Ox O2 Del Method 02/19/25 07:31 98.4 F 73 16 138/80 98 Room Air PG Care Time/CCT Total # of Minutes Spent Total Time Spent with Patient: Total time spent is greater than 50% in coordination of care (as documented) at patient's floor/unit and/or counseling patient: Coding Level of Care Code 54764 SUB INP/OBS CARE 06/24MIN Diagnoses Schizoaffective disorder F25.9 COPD, moderate J44.9 Hypothyroidism E03.9 Neuropathy G62.9"
--- NOTE | 2025-02-20 13:17 | Hospitalist Progress Note ---
"Date of Service February 20, 2025 Assessment & Plan (1) Schizoaffective disorder: (2) COPD, moderate: (3) Hypothyroidism: (4) Neuropathy: Plan 64-year-old woman with past medical history of schizoaffective disorder, COPD, hypertension, hyperlipidemia who presented with altered mental status in context of an acute UTI. With her history of schizoaffective disorder, she has previously required structured living due to recurrent erratic behaviors and psychosis. She has been followed by the psychiatry team while admitted and has improved with medication changes. She remains in the hospital while awaiting placement. #AMS | Catatonia | Schizoaffective disorder - On doxepin, Seroquel and trazodone prior to admission for mental health. - Psych consulted and has met with patient multiple times throughout admission, most recently 02/03/25. Stable mental status, no evidence of active psychosis or catatonia. She has a longstanding history of periods where she refuses medication, lays in bed and will not open eyes for staff, etc. - this is a behavioral response and is not due to medications. Continue to ignore poor/negative behaviors and positively reinforce appropriate behaviors. 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 Dose adjusted throughout admission and current regimen appears to be beneficial and well-tolerated - Continue gabapentin 100 mg QAM, 300 mg HS #B12 deficiency/low normal - continue cyanocobalamin #Vitamin D deficiency - continue vitamin D supplement #HLD - continue atorvastatin #Hypothyroidism - TSH here normal at 1.4. Continue levothyroxine #GERD - continue Protonix #COPD - Duonebs available as needed DVT proph: Heparin SQ continued while inpatient Dispo: continued inpatient stay for eventual placement. Case management following Admission and Anticipated Discharge Date Admission Date: December 25, 2024 Supervising Physician Co-Signing Physician Notes RICK Supervision Note: I did not personally see or examine the patient today, but I verified all whiteside points of RICK Mccallum's assessment and plan with the following exceptions/additions: None Subjective Patient seen and evaluated at bedside. She was sleeping in bed and did not respond to my voice or touch. Her lunch tray was untouched on her bedside table. RN reports patient has been uncooperative with her care today, she did not take her morning medications, has not been communicative with any staff who has entered her room. Physical Exam Physical Exam: General: No acute distress. Sleeping in bed. Cardiac: Well-perfused. Rate in 80s. Pulm: Normal respiratory effort. 97% on room air. Results & Data Results & Data Vital Signs (Past 12 Hours) Vital Signs Temp Pulse Resp BP Pulse Ox O2 Del Method 02/20/25 07:36 97.0 F L 87 16 109/72 97 Room Air PG Care Time/CCT Total # of Minutes Spent Total Time Spent with Patient: Total time spent is greater than 50% in coordination of care (as documented) at patient's floor/unit and/or counseling patient: Coding Level of Care Code 98063 SUB INP/OBS CARE 06/24MIN Diagnoses Schizoaffective disorder F25.9 COPD, moderate J44.9 Hypothyroidism E03.9 Neuropathy G62.9"
--- NOTE | 2025-02-21 15:02 | Hospitalist Progress Note ---
Date of Service February 21, 2025 Assessment & Plan (1) Schizoaffective disorder: (2) COPD, moderate: (3) Hypothyroidism: (4) Neuropathy: Plan 64-year-old woman with past medical history of schizoaffective disorder, COPD, hypertension, hyperlipidemia who presented with altered mental status in context of an acute UTI. With her history of schizoaffective disorder, she has previously required structured living due to recurrent erratic behaviors and psychosis. She has been followed by the psychiatry team while admitted and has improved with medication changes. She remains in the hospital while awaiting placement. #AMS | Catatonia | Schizoaffective disorder - On doxepin, Seroquel and trazodone prior to admission for mental health. - Psych consulted and has met with patient multiple times throughout admission, most recently 02/03/25. Stable mental status, no evidence of active psychosis or catatonia. She has a longstanding history of periods where she refuses medication, lays in bed and will not open eyes for staff, etc. - this is a behavioral response and is not due to medications. Continue to ignore poor/negative behaviors and positively reinforce appropriate behaviors. - Psych had slight concern for akathisia with Seroquel so Seroquel was reduced on 02/03 - continue Seroquel 150 mg Q7PM, doxepin 75 mg Q7PM - Awaiting placement for skilled nursing, CM following #Neuropathy bilateral foot neuropathy. Dose adjusted throughout admission and current regimen appears to be beneficial and well-tolerated - Continue gabapentin 100 mg QAM, 300 mg HS #B12 deficiency/low normal - continue cyanocobalamin #Vitamin D deficiency - continue vitamin D supplement #HLD - continue atorvastatin #Hypothyroidism - TSH here normal at 1.4. Continue levothyroxine #GERD - continue Protonix #COPD - Duonebs available as needed DVT proph: Heparin SQ continued while inpatient Dispo: continued inpatient stay for eventual placement. Case management following. Admission and Anticipated Discharge Date Admission Date: December 25, 2024 Supervising Physician Co-Signing Physician Notes RICK Supervision Note: I did not personally see or examine the patient today, but I verified all whiteside points of RICK Mccallum's assessment and plan with the following exceptions/additions: None Subjective Patient seen and evaluated in third-floor waiting room. She reports "I am waiting for the automatic trimming sewer to come in." Offered to walk with patient back to her hospital room, she refused. She did not sleep well last night. She reports she has no appetite. She refused her morning medications today. She denied any acute complaints or concerns. Return to the third floor in afternoon to check in on Juliana. She was no longer sitting in the waiting room. Touch base with breaker unit assembler who reports security escorted her back to her room earlier and she is been calm in her room since then. Physical Exam Physical Exam: General: No acute distress. Sitting in third-floor waiting room. Cardiac: Well-perfused. Rate in 90s. Pulm: Normal respiratory effort. 98% on room air. Results & Data Results & Data Vital Signs (Past 12 Hours) Vital Signs Temp Pulse Resp BP Pulse Ox O2 Del Method 02/21/25 07:19 Room Air 02/21/25 07:02 98.4 F 99 H 18 138/83 98 Room Air PG Care Time/CCT Total # of Minutes Spent Total Time Spent with Patient: Total time spent is greater than 50% in coordination of care (as documented) at patient's floor/unit and/or counseling patient: Coding Level of Care Code 07502 SUB INP/OBS CARE 06/24MIN Diagnoses Schizoaffective disorder F25.9 COPD, moderate J44.9 Hypothyroidism E03.9 Neuropathy G62.9
--- NOTE | 2025-02-22 08:59 | Hospitalist Progress Note ---
Date of Service February 22, 2025 Assessment & Plan (1) Schizoaffective disorder: (2) COPD, moderate: (3) Hypothyroidism: (4) Neuropathy: Plan 64-year-old woman with past medical history of schizoaffective disorder, COPD, hypertension, hyperlipidemia who presented with altered mental status in context of an acute UTI. With her history of schizoaffective disorder, she has previously required structured living due to recurrent erratic behaviors and psychosis. She has been followed by the psychiatry team while admitted and has improved with medication changes. She remains in the hospital while awaiting placement. #AMS | Catatonia | Schizoaffective disorder - On doxepin, Seroquel and trazodone prior to admission for mental health. - Psych consulted and has met with patient multiple times throughout admission, most recently 02/03/25. Stable mental status, no evidence of active psychosis or catatonia. She has a longstanding history of periods where she refuses medication, lays in bed and will not open eyes for staff, etc. - this is a behavioral response and is not due to medications. Continue to ignore poor/negative behaviors and positively reinforce appropriate behaviors. 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 Dose adjusted throughout admission and current regimen appears to be beneficial and well-tolerated - Continue gabapentin 100 mg QAM, 300 mg HS #B12 deficiency/low normal - continue cyanocobalamin #Vitamin D deficiency - continue vitamin D supplement #HLD - continue atorvastatin #Hypothyroidism - TSH here normal at 1.4. Continue levothyroxine #GERD - continue Protonix #COPD - Duonebs available as needed #Dermatitis | Dry skin - hydrocortisone cream PRN to affected areas of dermatitis, moisturizing lotion PRN to dry skin DVT proph: Heparin SQ continued while inpatient Dispo: continued inpatient stay for eventual placement. Case management following. Admission and Anticipated Discharge Date Admission Date: December 25, 2024 Supervising Physician Co-Signing Physician Notes RICK Supervision Note: I did not personally see or examine the patient today, but I verified all whiteside points of RICK Mccallum's assessment and plan with the following exceptions/additions: None Subjective Patient seen and evaluated in bedside chair. She reports "I am okay I guess." She shows some dry areas of skin. We discussed using lotion on these areas, she is agreeable. She also asked for a multivitamin daily as she previously took 1 at home and felt this was beneficial to her overall health. She reports her appetite is improved. She "dozed on and off" overnight. She relayed stories of her grandparents during today's visit. She denies any additional complaints or concerns at this time. Continuing to wait for eventual placement. Physical Exam Physical Exam: General: No acute distress. Sitting in bedside chair. Skin: Warm, dry. Dry patchy area behind left ear consistent with dermatitis. Scattered areas on arms and legs bilaterally consistent with dry skin and dermatitis. Cardiac: Well-perfused. Rate in 90s. Pulm: Normal respiratory effort. 98% on room air. Neuro: A&O x3. No focal neurological deficits. Results & Data Results & Data Vital Signs (Past 12 Hours) Vital Signs Temp Pulse Resp BP Pulse Ox O2 Del Method 02/22/25 08:07 98.1 F 93 H 16 124/69 99 Room Air PG Care Time/CCT Total # of Minutes Spent Total Time Spent with Patient: Total time spent is greater than 50% in coordination of care (as documented) at patient's floor/unit and/or counseling patient: Coding Level of Care Code 52183 SUB INP/OBS CARE 06/24MIN Diagnoses Schizoaffective disorder F25.9 COPD, moderate J44.9 Hypothyroidism E03.9 Neuropathy G62.9
[2025-02-22] MEDS: MULTIVITAMIN TAB PO SCH (09:57)
--- NOTE | 2025-02-23 13:13 | Hospitalist Progress Note ---
"Date of Service February 23, 2025 Assessment & Plan (1) Schizoaffective disorder: (2) COPD, moderate: (3) Hypothyroidism: (4) Neuropathy: Plan 64-year-old woman with past medical history of schizoaffective disorder, COPD, hypertension, hyperlipidemia who presented with altered mental status in context of an acute UTI. With her history of schizoaffective disorder, she has previously required structured living due to recurrent erratic behaviors and psychosis. She has been followed by the psychiatry team while admitted and has improved with medication changes. She remains in the hospital while awaiting placement. #AMS | Catatonia | Schizoaffective disorder - On doxepin, Seroquel and trazodone prior to admission for mental health. - Psych consulted and has met with patient multiple times throughout admission, most recently 02/03/25. Stable mental status, no evidence of active psychosis or catatonia. She has a longstanding history of periods where she refuses medication, lays in bed and will not open eyes for staff, etc. - this is a behavioral response and is not due to medications. Continue to ignore poor/negative behaviors and positively reinforce appropriate behaviors. 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 Dose adjusted throughout admission and current regimen appears to be beneficial and well-tolerated - Continue gabapentin 100 mg QAM, 300 mg HS #B12 deficiency/low normal - continue cyanocobalamin #Vitamin D deficiency - continue vitamin D supplement #HLD - continue atorvastatin #Hypothyroidism - TSH here normal at 1.4. Continue levothyroxine #GERD - continue Protonix #COPD - Duonebs available as needed #Dermatitis | Dry skin - hydrocortisone cream PRN to affected areas of dermatitis, moisturizing lotion PRN to dry skin DVT proph: Heparin SQ continued while inpatient Dispo: continued inpatient stay for eventual placement. Case management following. Admission and Anticipated Discharge Date Admission Date: December 25, 2024 Supervising Physician Co-Signing Physician Notes RICK Supervision Note: I did not personally see or examine the patient today, but I verified all whiteside points of RICK Mccallum's assessment and plan with the following exceptions/additions: None Subjective Patient seen and evaluated at bedside. She was sleeping in bed, refusing to open her eyes or communicate. Her breakfast tray was untouched at bedside. She has been uncooperative with her care today and did not take her morning me dications. Physical Exam Physical Exam: General: No acute distress. Sleeping in bed. Cardiac: Well-perfused. Rate in 70s. Pulm: Normal respiratory effort. 94% on room air. PG Care Time/CCT Total # of Minutes Spent Total Time Spent with Patient: Total time spent is greater than 50% in coordination of care (as documented) at patient's floor/unit and/or counseling patient: Coding Level of Care Code 60816 SUB INP/OBS CARE 06/24MIN Diagnoses Schizoaffective disorder F25.9 COPD, moderate J44.9 Hypothyroidism E03.9 Neuropathy G62.9"
--- NOTE | 2025-02-24 19:41 | Hospitalist Progress Note ---
"Date of Service February 24, 2025 Assessment & Plan (1) Schizoaffective disorder: (2) COPD, moderate: (3) Hypothyroidism: (4) Neuropathy: (5) Dehydration: (6) History of atrial fibrillation: (7) History of mitral valve repair: (8) Constipation: (9) AMS (altered mental status): Plan 64yo female with schizoaffective disorder, COPD, hypertension, hyperlipidemia, MV repair, PAF (not on anticoagulation), CAD. Presented with altered mental status in context of an acute UTI. With her history of schizoaffective disorder she has previously required structured living due to recurrent erratic behaviors and psychosis. She has had a prolonged hospitalization while trying to determine her disposition. For the last 48 hours has not had any of her scheduled medicines nor taken any PO intake. #AMS | Catatonia | Schizoaffective disorder - - Was on doxepin, Seroquel and trazodone prior to admission - Psych consulted and has met with patient multiple times throughout admission, most recently 02/03/25. - By report she has a longstanding history of periods where she refuses medication, lays in bed and will not open eyes for staff, etc. - this is a behavioral response and is not due to medications. - Psych had slight concern for akathisia with Seroquel so Seroquel was reduced on 02/03 - continue Seroquel 150 mg Q7PM, doxepin 75 mg Q7PM - following my visit today I reached out to the psych liaison as I am concerned she is refusing all aspects of care including vitals, basic needs (toileting, etc), and is not eating/drinking - psych liaison to visit with patient jayleen and Dr Daley, on-call psych, will see tomorrow as well - due to concern for dehydration, tachycardia, etc I ordered labs, IV placement, and EKG - with intent to give IV fluids overnight -she apparently refused all interventions this evening - capacity to make medical decisions for herself?? This has been a concern in the past - previously thought to possess medical decision-making capacity -- but refusing to allow basic needs is incredibly concerning - appreciate psych input #Neuropathy - bilateral feet - Continue gabapentin 100 mg QAM, 300 mg HS - IF she will take such #B12 deficiency/low normal level (257) - continue cyanocobalamin IF she will take such #Vitamin D deficiency - continue vitamin D supplement when able #HLD - continue atorvastatin when she will allow #Hypothyroidism - TSH normal at 1.4. Continue levothyroxine when able #GERD - continue Protonix #COPD - no flare at this time DVT proph: at HIGH risk of DVT due to laying in bed for days, refusing heparin SC, etc. would change to once daily low-dose Xarelto or Eliquis BID Dispo: continued inpatient stay for eventual placement. Case management following and attempting to find suitable housing. care d/w psych liaison this evening Admission and Anticipated Discharge Date Admission Date: December 25, 2024 Subjective per staff she has not taken any meds nor taken any food/beverage in nearly 2 days refusing all care including basic needs last void? last BM 02/19 per nursing documentation laying in bed all day with eyes close and minimal communication with staff/others during my assessment she was laying on her side in bed with eyes closed EPS type movements of her face/jaw noted I asked 3-4 basic questions and she initially did not respond at all finally, when asked if in pain, she said no when asked if she was comfortable she said yes I asked her to open her mouth and on the 3rd asking she finally did - oral mucosa was extremely dry Review of Systems Review of Systems: Unobtainable due to cognitive status Physical Exam Physical Exam: gen - lying in bed on her side, eyes closed, did not speak - just simply yes/no responses (but inconsistently) mouth - MM very dry neck - no JVD heart - tachycardic (HR about 110), s1 s2, no murmur lungs - CTA b/l abd - mildly distended, BS+, NT, no HSM ext - cool to touch, pulses 1-2+ b/l feet, no edema psych - EPS type movements of face/mouth region, unable to assess orientation Results & Data Results & Data Vital Signs (Past 12 Hours) no vitals in 48 hours however, staff finally able to get vitals after my visit: Temp Pulse Resp BP BP Pulse Ox O2 Del Method 02/24/25 19:49 37.3 C 96 H 18 119/79 96 Room Air Laboratory Results no labs since December 2024 PG Care Time/CCT Total # of Minutes Spent Total Time Spent with Patient: Total time spent is greater than 50% in coordination of care (as documented) at patient's floor/unit and/or counseling patient: Coding Level of Care Code 52258 SUB INP/OBS CARE 50MIN Diagnoses Schizoaffective disorder F25.9 COPD, moderate J44.9 Hypothyroidism E03.9 Neuropathy G62.9 Dehydration E86.0 History of atrial fibrillation Z86.79 History of mitral valve repair Z98.890 Constipation K59.00 AMS (altered mental status) R41.82"
--- NOTE | 2025-02-25 12:31 | Hospitalist Progress Note ---
Date of Service February 25, 2025 Assessment & Plan (1) Schizoaffective disorder: (2) COPD, moderate: (3) Hypothyroidism: (4) Neuropathy: (5) Dehydration: (6) History of atrial fibrillation: (7) History of mitral valve repair: (8) Constipation: (9) AMS (altered mental status): Plan 64yo female with schizoaffective disorder, COPD, hypertension, hyperlipidemia, MV repair, PAF (not on anticoagulation), CAD. Presented with altered mental status in context of an acute UTI. With her history of schizoaffective disorder she has previously required structured living due to recurrent erratic behaviors and psychosis. She has had a prolonged hospitalization while trying to determine her disposition. From 02/22 to 02/24 did not take her medicines or take any food/beverage. #AMS | Catatonia | Schizoaffective disorder - - Was on doxepin, Seroquel and trazodone prior to admission - Psych consulted and has met with patient multiple times throughout admission, most recently 02/03/25. - By report she has a longstanding history of periods where she refuses medication, lays in bed and will not open eyes for staff, etc. - this is a behavioral response and is not due to medications. - Psych had slight concern for akathisia with Seroquel so Seroquel was reduced on 02/03 - continue Seroquel 150 mg Q7PM, doxepin 75 mg Q7PM - due to the events of 02/22 to 02/24 asked psych to re-eval - Dr Daley saw patient today; no changes advised in medicines at this time - appreciate psych input - last 48 hours of sleeping in bed all day -- intentional/behavioral ?? - either way she is better today #Neuropathy - bilateral feet - Continue gabapentin 100 mg QAM, 300 mg HS #B12 deficiency/low normal level (257) - continue cyanocobalamin #Vitamin D deficiency - continue vitamin D supplement #HLD - continue atorvastatin #Hypothyroidism - TSH normal at 1.4. Continue levothyroxine when able #GERD - continue Protonix #COPD - no flare at this time #abd distension with loose stool - constipation with overflow diarrhea? other? -check KUB x-ray in am 02/26 to assess fecal loading, etc. DVT proph: at HIGH risk of DVT due to laying in bed for days, refusing heparin SC, etc. would change to once daily low-dose Xarelto or Eliquis BID for DVT proph Dispo: continued inpatient stay for eventual placement. Case management following and attempting to find suitable housing. care d/w psych 02/24 and 02/25 Admission and Anticipated Discharge Date Admission Date: December 25, 2024 Subjective patient MUCH more awake/alert today she is no longer sleeping in the bed, refusing vitals, refusing care, etc. she said "I couldn't sleep for the last few days" (?) -- "I took melatonin" walked to bathroom - had 2 BMs today - loose she states her BMs have been loose since admission back in November feels bloated No nausea or emesis Review of Systems Review of Systems: CV - no chest pain pulm - no dyspnea GI - no abd pain, some bloating however - denies dysuria Physical Exam Physical Exam: gen - sitting in chair; awake/alert; looks MUCH better than yesterday mouth - MMM today neck - no JVD heart - RRR, s1 s2, no murmur; tachycardia resolved lungs - CTA b/l abd - still mildly distended, BS+, NT, no HSM ext - pulses 1-2+ b/l feet, no edema psych - EPS type movements of face/mouth region Results & Data Results & Data Vital Signs (Past 12 Hours) Vital Signs Temp Pulse Resp BP Pulse Ox O2 Del Method 02/25/25 07:01 37.4 C 82 16 109/77 97 Room Air PG Care Time/CCT Total # of Minutes Spent Total Time Spent with Patient: Total time spent is greater than 50% in coordination of care (as documented) at patient's floor/unit and/or counseling patient: Coding Level of Care Code 92579 SUB INP/OBS CARE 06/24MIN Diagnoses Schizoaffective disorder F25.9 COPD, moderate J44.9 Hypothyroidism E03.9 Neuropathy G62.9 Dehydration E86.0 History of atrial fibrillation Z86.79 History of mitral valve repair Z98.890 Constipation K59.00 AMS (altered mental status) R41.82
--- NOTE | 2025-02-25 12:38 | Psychiatric Progress Note ---
Date of Service February 25, 2025 Impression / Recommendations Impression 64 y/o F h/o Schizoaffective disorder, COPD, HTN, HLD, who presents with AMS in the context of active UTI. Psychiatry consulted for evaluation. Pt has h/o Schizoaffective disorder, historically has required structured living due to recurrent erratic behaviors, psychosis. She presents poor insight into her condition. A: Suspect possibly some increased somatic delusions versus abdominal issues in recent days contributing to poor adherence with medications and lack of po intake. Encouragingly today she is communicating, shows bright affect, no evidence for psychosis and reports willingness to eat lunch and take her medications today. She doesn't want to try any psychiatric medication changes but if poor po intake and sleep issues persist will consider switching Seroquel to an alternative antipsychotic. Overall, I spent a total of 35 minutes with this case including review of chart records, nursing report, review of lab work, direct evaluation of the patient at bedside, discussion of the patient with the hospitalist provider, discussion with the psychiatric liaison during clinical rounds, and documentation in the electronic health record. (1) Schizoaffective disorder: Plan 02/25/2025: -Continue current psychiatric medications 02/03/25: Decrease Quetiapine to 150mg Q7pm Increase Doxepin to 75mg Q7pm No acute safety concerns 01/25/2025: -Melatonin 3 mg PO QHS nightly -Continue Seroquel 100 mg p.o. daily for more immediate management of insomnia 01/05/2025: -Discontinue ativan (she never received any doses) -Continue with doxepin at HS -If sedation remains improved over next 1-2 weeks then consider restarting Seroquel 100mg HS given history of schizoaffective disorder vs option to trial alternative antipsychotic (sees Dr. Sanchez as an outpatient for psychiatric management) -VAIBHAV signed for Dr. Sanchez, will fax his office notes from this hospitalization 01/03/2025: -Discontinue Seroquel and trazodone to lessen risks for hypotension -Move doxepin from morning to HS given sedating effects -Start ativan 0.5mg IV TID or 1mg IV TID with goal of consistent administration. 01/02/25: Trial discontinuation of lorazepam and psychiatry to assess if symptoms persist 12/29/24: Decrease lorazepam to 0.5mg BID IV/PO, then tomorrow 0.5mg HS, then d/c. 12/28/24: Lorazepam 0.5mg QAM, 0.5mg Q2pm, 1mg HS IV/PO 12/27/24: Transition to oral Lorazepam 1mg TID 12/26/24: Lorazepam IV 1mg TID, can decrease dose if hypotensive, bradypneic, or causing excess sedation Continue home Trazodone 100mg HS, Doxepin 100mg HS, Quetiapine XR 100mg QPM Psychiatry consults to follow Interval History Identifying Information 64 y/o F h/o Schizoaffective disorder, COPD, HTN, HLD, who presents with AMS in the context of active UTI. Psychiatry consulted for evaluation. Chief Complaint "Ok I haven't slept in a few days". Subjective Subjective Patient was seen & assessed and interval progress reviewed. Has been refusing her medications for the last few days, not eating and reports poor sleep. She isn't interested in making any psychiatric medications changes as she feels melatonin works well for her sleep. Asked why she's been refusing this states she "didn't feel good, my stomach didn't feel good" and reports having a lot of gas. Today she took some of her morning medications and plans to eat lunch and agrees she should take her melatonin tonight so she can sleep. Denies any current concerns. Discussed some recent sporting events and she was reality- based with bright affect. Physical Exam Psychiatric Eye Contact: good eye contact Motor Behavior: no abnormal motor movements Speech: normal rate/rhythm/volume of speech Affect: euthymic affect Mood: no depressed mood and no anxious mood Thought Process: linear/logical thought process Thought Content: reality based without delusions Suicidal Thoughts: denies suicidal thoughts Homicidal Thoughts: denies homicidal thoughts Insight: + fair insight Judgment: + limited judgement Vital Signs (Past 24 Hours) Last Vital Signs Temp 37.4 C 02/25/25 07:01 Pulse 82 02/25/25 07:01 Resp 16 02/25/25 07:01 BP 109/77 02/25/25 07:01 Pulse Ox 97 02/25/25 07:01 O2 Del Method Room Air 02/25/25 07:01 O2 Flow Rate 2 01/28/25 23:44 Results & Data ([facility]) Current Inpatient Medications Current Inpatient Medications: Current Inpatient Medications Acetaminophen (Acetaminophen 325 Mg Tab) 650 mg PO Q4H PRN PRN Reason: PAIN OR FEVER Stop: 03/30/25 13:39 Last Admin: 02/22/25 18:44 Dose: 650 mg Al Hydrox/Mg Hydrox/Simethicone (Aluminum/Magnesium/Simeth (Maalox Max) 30 Ml Udc) 15 ml PO QID PRN PRN Reason: Stomach Issues Stop: 03/30/25 15:21 Last Admin: 01/20/25 11:18 Dose: 15 ml Al Hydrox/Mg Hydrox/Simethicone (Aluminum/Magnesium/Simeth (Maalox Max) 30 Ml Udc) 30 ml PO Q6H PRN PRN Reason: Indigestion Stop: 03/30/25 09:02 Albuterol (Albut/Ipratrop 3mg/0.5mg Neb 3 Ml Vial) 3 ml NEB Q6R PRN; Protocol PRN Reason: sob Stop: 03/30/25 15:22 Ascorbic Acid (Ascorbic Acid 500 Mg Tab) 500 mg PO DAILY DUNIA Stop: 03/30/25 08:59 Last Admin: 02/25/25 07:41 Dose: 500 mg Aspirin (Aspirin 81 Mg Ectab) 81 mg PO DAILY DUNIA Stop: 03/30/25 13:44 Last Admin: 02/25/25 07:39 Dose: 81 mg Atorvastatin Calcium (Atorvastatin 20 Mg Tab) 20 mg PO DAILY DUNIA Stop: 03/30/25 13:44 Last Admin: 02/25/25 07:41 Dose: 20 mg Bisacodyl (Bisacodyl 10 Mg Supp) 10 mg CA DAILY PRN PRN Reason: Constipation Stop: 03/30/25 11:57 Last Admin: 01/10/25 12:39 Dose: 10 mg Bisacodyl (Bisacodyl 5 Mg Tabec) 5 mg PO HS PRN PRN Reason: Constipation Stop: 03/30/25 11:57 Last Admin: 01/09/25 14:28 Dose: 5 mg Calcium Carbonate (Calcium Carbonate 500 Mg Chewable Tab) 500 mg PO Q4H PRN PRN Reason: Indigestion Stop: 03/30/25 13:48 Last Admin: 01/20/25 10:40 Dose: 500 mg Cyanocobalamin (Cyanocobalamin (B-12) 500 Mcg Tablet) 1,000 mcg PO DAILY DUNIA Stop: 03/30/25 08:59 Last Admin: 02/25/25 07:40 Dose: 1,000 mcg Dicyclomine HCl (Dicyclomine Hcl 20 Mg Tab) 20 mg PO Q6H PRN PRN Reason: Gas or Constipation Stop: 03/30/25 12:32 Last Admin: 02/19/25 08:32 Dose: 20 mg Docusate Sodium (Docusate Sodium 100 Mg Cap) 100 mg PO BID DUNIA Stop: 03/30/25 20:59 Last Admin: 02/25/25 08:58 Dose: Not Given Doxepin HCl (Doxepin Hcl 75 Mg Capsule) 75 mg PO DAILY@1900 [facility] Stop: 03/30/25 18:59 Last Admin: 02/24/25 18:19 Dose: Not Given Fish Oil ([place]-3 (Purified Fish Oil) 1 Gm Cap) 1 cap PO DAILY DUNIA Stop: 03/30/25 08:59 Last Admin: 02/25/25 07:40 Dose: 1 cap Gabapentin (Gabapentin 300 Mg Cap) 300 mg PO HS [facility] [place] Stop: 03/30/25 20:59 Last Admin: 02/24/25 20:04 Dose: Not Given Gabapentin (Gabapentin 100 Mg Cap) 100 mg PO QAM DUNIA Stop: 03/30/25 08:59 Last Admin: 02/25/25 07:42 Dose: 100 mg Guaifenesin (Guaifenesin Sugar Free 100 Mg/5 Ml Udc) 200 mg PO Q4H PRN PRN Reason: Cough/Congestion Stop: 03/30/25 13:39 Heparin Sodium (Porcine) (Heparin Sod 5,000 Unit/0.5 Ml Vial) 5,000 units SQ Q12H DUNIA Stop: 03/30/25 08:14 Last Admin: 02/25/25 08:58 Dose: Not Given Hydrocortisone (Hydrocortisone Hc 2.5% Crm 30gm Tube) 1 appln EXT Q2H PRN PRN Reason: Hemorrhoids Stop: 03/30/25 10:03 Hydrocortisone (Hydrocortisone 2.5% Cr 30 Gm Tube) 1 appln EXT DAILY PRN PRN Reason: seborrheic dermatitis Stop: 03/30/25 13:14 Levothyroxine Sodium (Levothyroxine Sodium 88 Mcg Tablet) 88 mcg PO DAILYBB [facility] [place] Stop: 03/30/25 06:29 Last Admin: 02/25/25 05:27 Dose: 88 mcg Melatonin (Melatonin 3 Mg Tab) 6 mg PO HS PRN PRN Reason: Sleep Stop: 03/30/25 02:14 Last Admin: 02/22/25 20:39 Dose: 6 mg Multivitamins (Multivitamin Tab) 1 tab PO QAM DUNIA Stop: 03/24/25 09:14 Last Admin: 02/25/25 07:40 Dose: 1 tab Olanzapine (Olanzapine 5 Mg Tablet) 5 mg PO ONE PRN PRN Reason: Agitation Stop: 03/30/25 16:42 Olanzapine (Olanzapine 10 Mg/2.1 Ml Sdv) 5 mg IM ONE PRN PRN Reason: Agitation Stop: 03/30/25 18:11 Ondansetron HCl (Ondansetron Inj 2 Mg/Ml 2 Ml Vial) 4 mg IV Q6H PRN PRN Reason: Nausea Stop: 03/30/25 13:41 Pantoprazole Sodium (Pantoprazole 40 Mg Tab) 40 mg PO DAILY DUNIA Stop: 03/30/25 08:59 Last Admin: 02/25/25 07:42 Dose: 40 mg Polyethylene Glycol (Polyethylene (Miralax) 17 Gm Pack) 17 gm PO TID PRN PRN Reason: Constipation Stop: 03/30/25 11:57 Last Admin: 01/11/25 08:44 Dose: 17 gm Potassium Chloride (Potassium Chloride 10 Meq Tabcr) 10 meq PO DAILY DUNIA Stop: 03/30/25 08:59 Last Admin: 02/25/25 08:58 Dose: Not Given Psyllium Hydrophilic Mucilloid (Psyllium Husk 4gm Packet) 4 gm PO QAM DUNIA Stop: 03/30/25 08:59 Last Admin: 02/25/25 08:58 Dose: Not Given Quetiapine Fumarate (Quetiapine Fumarate 25 Mg Tablet) 150 mg PO DAILY@1900 DUNIA Stop: 03/30/25 18:59 Last Admin: 02/24/25 18:19 Dose: Not Given Triamcinolone Acetonide (Triamcinolone Acet 0.1% Oint 80 Gm Tube) 1 appln EXT BID DUNIA Stop: 03/30/25 11:44 Last Admin: 02/25/25 08:58 Dose: Not Given Vitamin D (Cholecalciferol 125 Mcg (5,000 Units) Tab) 125 mcg PO DAILY DUNIA Stop: 03/30/25 08:59 Last Admin: 02/25/25 07:40 Dose: 125 mcg
--- NOTE | 2025-02-26 08:14 | XRay Report ---
EXAM: XR KUB/Abdomen 1 view CLINICAL HISTORY: abd distension; could be ileus or constipation. TECHNIQUE: X-ray images of the abdomen were obtained in supine and upright positions. COMPARISON: Prior CT dated 01/10/2025 18:04:10 [employer] DISPATCHER was reviewed. FINDINGS: Gas Pattern: Gas-distended colonic loops are present, which appear to be on the left side of the abdomen. There is no evidence of bowel obstruction or distention. Soft Tissues: Surgical sutures from cholecystectomy are noted. The liver, spleen, and kidneys are normal in size and position. IMPRESSION: 1. Gas-distended colonic loops, which appear to be on the left side of the abdomen (new). These findings need follow-up. 2. Otherwise, there is no evidence of current bowel obstruction. Electronically signed by Thanh Wynne 02-26-2025 08:13 AM
--- NOTE | 2025-02-26 11:24 | Psychiatric Progress Note ---
Date of Service February 26, 2025 Impression / Recommendations Impression 64 y/o F h/o Schizoaffective disorder, COPD, HTN, HLD, who presents with AMS in the context of active UTI. Psychiatry consulted for evaluation. Pt has h/o Schizoaffective disorder, historically has required structured living due to recurrent erratic behaviors, psychosis. She presents poor insight into her condition. A: Improved po intake and medication adherence up until discussion this morning about disposition plans. Since then she has refused to engage. This is consistent with her previous regressed behaviors during which time she will not speak and sometimes refuses to take medication or eat for 1-3 days. In the past months this has always self-resolved typically within 1-3 days. There are no psychiatric medications or treatments to change this behavioral response except longer term outpatient therapy which she has not been motivated to engage with. Since these periods of regressed behaviors are always self-limited and do not cause any harm to self or others or risk of permanent disability from reduced self-care these are also not behaviors that would allow for a psychiatric involuntary commitment. Given her unwillingness vs inability to engage with aid to capacity evaluation, at this time she does not have decision making capacity in regard to dispositional decisions as she cannot tell me the reason for her decision, risks/benefits, nor alternatives. Overall, I spent a total of 35 minutes with this case including review of chart records, nursing report, review of lab work, direct evaluation of the patient at bedside, discussion of the patient with the hospitalist provider and case management, discussion with the psychiatric liaison during clinical rounds, and documentation in the electronic health record. (1) Schizoaffective disorder: Plan 02/26/2025: -Continue current psychiatric medications 02/25/2025: -Continue current psychiatric medications 02/03/25: Decrease Quetiapine to 150mg Q7pm Increase Doxepin to 75mg Q7pm No acute safety concerns 01/25/2025: -Melatonin 3 mg PO QHS nightly -Continue Seroquel 100 mg p.o. daily for more immediate management of insomnia 01/05/2025: -Discontinue ativan (she never received any doses) -Continue with doxepin at HS -If sedation remains improved over next 1-2 weeks then consider restarting Seroquel 100mg HS given history of schizoaffective disorder vs option to trial alternative antipsychotic (sees Dr. Sanchez as an outpatient for psychiatric management) -VAIBHAV signed for Dr. Sanchez, will fax his office notes from this hospitalization 01/03/2025: -Discontinue Seroquel and trazodone to lessen risks for hypotension -Move doxepin from morning to HS given sedating effects -Start ativan 0.5mg IV TID or 1mg IV TID with goal of consistent administration. 01/02/25: Trial discontinuation of lorazepam and psychiatry to assess if symptoms persist 12/29/24: Decrease lorazepam to 0.5mg BID IV/PO, then tomorrow 0.5mg HS, then d/c. 12/28/24: Lorazepam 0.5mg QAM, 0.5mg Q2pm, 1mg HS IV/PO 12/27/24: Transition to oral Lorazepam 1mg TID 12/26/24: Lorazepam IV 1mg TID, can decrease dose if hypotensive, bradypneic, or causing excess sedation Continue home Trazodone 100mg HS, Doxepin 100mg HS, Quetiapine XR 100mg QPM Psychiatry consults to follow Interval History Identifying Information 64 y/o F h/o Schizoaffective disorder, COPD, HTN, HLD, who presents with AMS in the context of active UTI. Psychiatry consulted for evaluation. Chief Complaint mute Subjective Subjective Patient was seen & assessed and interval progress reviewed. She ate well yesterd ay and took her evening medications. Today was apparently very conversant in the morning but stopped talking and has continued to lie in bed with her eyes shut since being told that there was a possibility of going to a personal usp today. On my assessment she is not talking and continues to keep her eyes squeezed shut. There is no evidence that she is asleep, rather seems she is taking effort to keep her eyes closed. She would not participate with decision making capacity assessment despite an explanation about the importance of this so that she can make her desires known. Physical Exam Vital Signs (Past 24 Hours) Last Vital Signs Temp 36.4 C L 02/26/25 07:41 Pulse 88 02/26/25 07:41 Resp 18 02/26/25 07:41 BP 113/73 02/25/25 22:58 Pulse Ox 96 02/26/25 07:41 O2 Del Method Room Air 02/26/25 07:41 O2 Flow Rate 2 01/28/25 23:44 Results & Data ([facility]) Current Inpatient Medications Current Inpatient Medications: Current Inpatient Medications Acetaminophen (Acetaminophen 325 Mg Tab) 650 mg PO Q4H PRN PRN Reason: PAIN OR FEVER Stop: 03/30/25 13:39 Last Admin: 02/25/25 19:15 Dose: 650 mg Al Hydrox/Mg Hydrox/Simethicone (Aluminum/Magnesium/Simeth (Maalox Max) 30 Ml Udc) 15 ml PO QID PRN PRN Reason: Stomach Issues Stop: 03/30/25 15:21 Last Admin: 01/20/25 11:18 Dose: 15 ml Al Hydrox/Mg Hydrox/Simethicone (Aluminum/Magnesium/Simeth (Maalox Max) 30 Ml Udc) 30 ml PO Q6H PRN PRN Reason: Indigestion Stop: 03/30/25 09:02 Albuterol (Albut/Ipratrop 3mg/0.5mg Neb 3 Ml Vial) 3 ml NEB Q6R PRN; Protocol PRN Reason: sob Stop: 03/30/25 15:22 Ascorbic Acid (Ascorbic Acid 500 Mg Tab) 500 mg PO DAILY DUNIA Stop: 03/30/25 08:59 Last Admin: 02/26/25 07:27 Dose: 500 mg Aspirin (Aspirin 81 Mg Ectab) 81 mg PO DAILY DUNIA Stop: 03/30/25 13:44 Last Admin: 02/26/25 07:28 Dose: 81 mg Atorvastatin Calcium (Atorvastatin 20 Mg Tab) 20 mg PO DAILY DUNIA Stop: 03/30/25 13:44 Last Admin: 02/26/25 07:29 Dose: 20 mg Bisacodyl (Bisacodyl 10 Mg Supp) 10 mg IN DAILY PRN PRN Reason: Constipation Stop: 03/30/25 11:57 Last Admin: 01/10/25 12:39 Dose: 10 mg Bisacodyl (Bisacodyl 5 Mg Tabec) 5 mg PO HS PRN PRN Reason: Constipation Stop: 03/30/25 11:57 Last Admin: 01/09/25 14:28 Dose: 5 mg Calcium Carbonate (Calcium Carbonate 500 Mg Chewable Tab) 500 mg PO Q4H PRN PRN Reason: Indigestion Stop: 03/30/25 13:48 Last Admin: 01/20/25 10:40 Dose: 500 mg Cyanocobalamin (Cyanocobalamin (B-12) 500 Mcg Tablet) 1,000 mcg PO DAILY DUNIA Stop: 03/30/25 08:59 Last Admin: 02/26/25 07:27 Dose: 1,000 mcg Dicyclomine HCl (Dicyclomine Hcl 20 Mg Tab) 20 mg PO Q6H PRN PRN Reason: Gas or Constipation Stop: 03/30/25 12:32 Last Admin: 02/19/25 08:32 Dose: 20 mg Docusate Sodium (Docusate Sodium 100 Mg Cap) 100 mg PO BID DUNIA Stop: 03/30/25 20:59 Last Admin: 02/26/25 07:29 Dose: Not Given Doxepin HCl (Doxepin Hcl 75 Mg Capsule) 75 mg PO DAILY@1900 [facility] Stop: 03/30/25 18:59 Last Admin: 02/25/25 18:16 Dose: 75 mg Fish Oil ([place]-3 (Purified Fish Oil) 1 Gm Cap) 1 cap PO DAILY DUNIA Stop: 03/30/25 08:59 Last Admin: 02/26/25 07:28 Dose: 1 cap Gabapentin (Gabapentin 300 Mg Cap) 300 mg PO HS DUNIA Stop: 03/30/25 20:59 Last Admin: 02/25/25 19:15 Dose: 300 mg Gabapentin (Gabapentin 100 Mg Cap) 100 mg PO QAM [facility] Stop: 03/30/25 08:59 Last Admin: 02/26/25 07:28 Dose: 100 mg Guaifenesin (Guaifenesin Sugar Free 100 Mg/5 Ml Udc) 200 mg PO Q4H PRN PRN Reason: Cough/Congestion Stop: 03/30/25 13:39 Heparin Sodium (Porcine) (Heparin Sod 5,000 Unit/0.5 Ml Vial) 5,000 units SQ Q12H DUNIA Stop: 03/30/25 08:14 Last Admin: 02/26/25 07:29 Dose: Not Given Hydrocortisone (Hydrocortisone Hc 2.5% Crm 30gm Tube) 1 appln EXT Q2H PRN PRN Reason: Hemorrhoids Stop: 03/30/25 10:03 Hydrocortisone (Hydrocortisone 2.5% Cr 30 Gm Tube) 1 appln EXT DAILY PRN PRN Reason: seborrheic dermatitis Stop: 03/30/25 13:14 Levothyroxine Sodium (Levothyroxine Sodium 88 Mcg Tablet) 88 mcg PO DAILYBB DUNIA Stop: 03/30/25 06:29 Last Admin: 02/26/25 05:53 Dose: 88 mcg Melatonin (Melatonin 3 Mg Tab) 6 mg PO HS PRN PRN Reason: Sleep Stop: 03/30/25 02:14 Last Admin: 02/25/25 19:16 Dose: 6 mg Multivitamins (Multivitamin Tab) 1 tab PO QAM DUNIA Stop: 03/24/25 09:14 Last Admin: 02/26/25 07:27 Dose: 1 tab Olanzapine (Olanzapine 5 Mg Tablet) 5 mg PO ONE PRN PRN Reason: Agitation Stop: 03/30/25 16:42 Olanzapine (Olanzapine 10 Mg/2.1 Ml Sdv) 5 mg IM ONE PRN PRN Reason: Agitation Stop: 03/30/25 18:11 Ondansetron HCl (Ondansetron Inj 2 Mg/Ml 2 Ml Vial) 4 mg IV Q6H PRN PRN Reason: Nausea Stop: 03/30/25 13:41 Pantoprazole Sodium (Pantoprazole 40 Mg Tab) 40 mg PO DAILY DUNIA Stop: 03/30/25 08:59 Last Admin: 02/26/25 07:27 Dose: 40 mg Polyethylene Glycol (Polyethylene (Miralax) 17 Gm Pack) 17 gm PO TID PRN PRN Reason: Constipation Stop: 03/30/25 11:57 Last Admin: 01/11/25 08:44 Dose: 17 gm Potassium Chloride (Potassium Chloride 10 Meq Tabcr) 10 meq PO DAILY DUNIA Stop: 03/30/25 08:59 Last Admin: 02/26/25 07:29 Dose: Not Given Psyllium Hydrophilic Mucilloid (Psyllium Husk 4gm Packet) 4 gm PO QAM DUNIA Stop: 03/30/25 08:59 Last Admin: 02/26/25 07:28 Dose: Not Given Quetiapine Fumarate (Quetiapine Fumarate 25 Mg Tablet) 150 mg PO DAILY@1900 DUN[facility] Stop: 03/30/25 18:59 Last Admin: 02/25/25 18:16 Dose: 150 mg Triamcinolone Acetonide (Triamcinolone Acet 0.1% Oint 80 Gm Tube) 1 appln EXT BID DUNIA Stop: 03/30/25 11:44 Last Admin: 02/26/25 07:28 Dose: Not Given Vitamin D (Cholecalciferol 125 Mcg (5,000 Units) Tab) 125 mcg PO DAILY DUNIA Stop: 03/30/25 08:59 Last Admin: 02/26/25 07:27 Dose: 125 mcg
--- NOTE | 2025-02-26 12:34 | Hospitalist Progress Note ---
"Date of Service February 26, 2025 Assessment & Plan (1) Schizoaffective disorder: (2) COPD, moderate: (3) Hypothyroidism: (4) Neuropathy: (5) Dehydration: (6) History of atrial fibrillation: (7) History of mitral valve repair: (8) Constipation: (9) AMS (altered mental status): Plan 64yo female with schizoaffective disorder, COPD, hypertension, hyperlipidemia, MV repair, PAF (not on anticoagulation), CAD. Presented with altered mental status in context of an acute UTI. With her history of schizoaffective disorder she has previously required structured living due to recurrent erratic behaviors and psychosis. She has had a prolonged hospitalization while trying to determine her disposition. #AMS | Catatonia | Schizoaffective disorder Meds prior to admission: Seroquel, Trazodone, and Doxepin Psych following --> currently on Seroquel 150mg and Doxepin 75mg. At this time does not have decision making capacity in regard to dispositional decisions. Juliana cannot give reasons for decision, risks/benefits, or alternatives. Rec no change in medications at this time. By report she has a longstanding history of periods where she refuses medication, lays in bed and will not open eyes for staff, etc. - this is a beha vioral response and is not due to medications. #Abdominal pain w/ vague reports of abdominal pain occasionally but appears comfortable at bedside. KUB: gas distended colonic loops. Check stool studies given prolonged hospital stay. Monitor BM's. Adjust bowel regimen as needed. #Neuropathy Continue gabapentin 100 mg QAM, 300 mg HS #B12 deficiency/low normal level (257) - continue cyanocobalamin #Vitamin D deficiency - continue vitamin D supplement #HLD - continue atorvastatin #Hypothyroidism - TSH normal at 1.4. Continue levothyroxine when able #GERD - continue Protonix #COPD - no flare at this time DVT proph: at HIGH risk of DVT due to laying in bed for days, refusing heparin SC --> start Eliquis 2.5mg BID for prophylaxis while inpatient. Dispo: continued inpatient stay for eventual placement. Case management following and attempting to find suitable housing. care d/w psych & CM 02/26 extensively. Admission and Anticipated Discharge Date Admission Date: December 25, 2024 Supervising Physician Co-Signing Physician Notes Attending Attestation: Chart reviewed, care plan d/w RICK Nettles. I agree w/ the whiteside components of her documentation. Louie Medina MD Subjective Juliana was seen & examined this morning. Upon first encounter w/ nurse Juliana reported she was tired but was talking to staff. She was agreeable to take medication. After discussing discharge planning, she became silent and refused to answer any further questioning. Physical Exam Physical Exam: General: NAD, VS: BP 113/73; P88; R18; T36.4C Resp: normal respiratory effort Extremities: no edema Neuro: A&Ox3. Skin: intact, no lesions noted Results & Data Results & Data Vital Signs (Past 12 Hours) Vital Signs Temp Pulse Resp Pulse Ox O2 Del Method 02/26/25 07:41 36.4 C L 88 18 96 Room Air PG Care Time/CCT Total # of Minutes Spent Total Time Spent with Patient: Total time spent is greater than 50% in coordination of care (as documented) at patient's floor/unit and/or counseling patient: Coding Level of Care Code 91327 SUB INP/OBS CARE 2/35MIN Diagnoses Schizoaffective disorder F25.9 COPD, moderate J44.9 Hypothyroidism E03.9 Neuropathy G62.9 Dehydration E86.0 History of atrial fibrillation Z86.79 History of mitral valve repair Z98.890 Constipation K59.00 AMS (altered mental status) R41.82"
[2025-02-26] MEDS: APIXABAN 2.5 MG TAB PO SCH (20:05)
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
--- NOTE | 2025-02-28 12:20 | Hospitalist Progress Note ---
"Date of Service February 28, 2025 Assessment & Plan (1) Schizoaffective disorder: (2) COPD, moderate: (3) Hypothyroidism: (4) Neuropathy: (5) Dehydration: (6) History of atrial fibrillation: (7) History of mitral valve repair: (8) Constipation: (9) AMS (altered mental status): Plan 64yo female with schizoaffective disorder, COPD, hypertension, hyperlipidemia, MV repair, PAF (not on anticoagulation), CAD. Presented with altered mental status in context of an acute UTI. With her history of schizoaffective disorder she has previously required structured living due to recurrent erratic behaviors and psychosis. She has had a prolonged hospitalization while trying to determine her disposition. #AMS | Catatonia | Schizoaffective disorder Meds prior to admission: Seroquel, Trazodone, and Doxepin Psych following --> currently on Seroquel 150mg and Doxepin 75mg. At this time does not have decision making capacity in regard to dispositional decisions. Juliana cannot give reasons for decision, risks/benefits, or alternatives. Rec no change in medications at this time. By report she has a longstanding history of periods where she refuses medication, lays in bed and will not open eyes for staff, etc. - this is a behavioral response and is not due to medications. #Abdominal pain w/ vague reports of abdominal pain occasionally but appears comfortable at bedside. KUB: gas distended colonic loops. Check stool studies given prolonged hospital stay. Monitor BM's Refusing any form of bowel regimen right now - continue to discuss that she has constipation & would feel better if she were to be compliant. #Neuropathy Continue gabapentin 100 mg QAM, 300 mg HS #B12 deficiency/low normal level (257) - continue cyanocobalamin #Vitamin D deficiency - continue vitamin D supplement #HLD - continue atorvastatin #Hypothyroidism - TSH normal at 1.4. Continue levothyroxine when able #GERD - continue Protonix #COPD - no flare at this time DVT proph: at risk of DVT due to laying in bed for days at a time, refusing heparin SC & PO Eliquis Dispo: continued inpatient stay for eventual placement. Case management following and attempting to find suitable housing. Admission and Anticipated Discharge Date Admission Date: December 25, 2024 Joey Andrews was seen & examined this morning. She was very pleasant today. States she no longer wants labs drawn unless she feels sick. Physical Exam Physical Exam: General: NAD, VS: BP 103/64; P75; R16 Resp: normal respiratory effort Extremities: no edema Neuro: A&O x3 Skin: intact, no lesions noted Results & Data Results & Data Vital Signs (Past 12 Hours) Vital Signs Temp Pulse Resp BP Pulse Ox O2 Del Method 02/28/25 07:09 36.6 C 75 16 103/64 95 Room Air PG Care Time/CCT Total # of Minutes Spent Total Time Spent with Patient: Total time spent is greater than 50% in coordination of care (as documented) at patient's floor/unit and/or counseling patient: Coding Level of Care Code 06636 SUB INP/OBS CARE 06/24MIN Diagnoses Schizoaffective disorder F25.9 COPD, moderate J44.9 Hypothyroidism E03.9 Neuropathy G62.9 Dehydration E86.0 History of atrial fibrillation Z86.79 History of mitral valve repair Z98.890 Constipation K59.00 AMS (altered mental status) R41.82"
[2025-03-01] MEDS ORDERED: DOCUSATE SODIUM 100 MG CAP PO PRN (10:51)
--- NOTE | 2025-03-01 12:10 | Hospitalist Progress Note ---
"Date of Service March 01, 2025 Assessment & Plan (1) Schizoaffective disorder: (2) COPD, moderate: (3) Hypothyroidism: (4) Neuropathy: (5) Dehydration: (6) History of atrial fibrillation: (7) History of mitral valve repair: (8) Constipation: (9) AMS (altered mental status): Plan 64yo female with schizoaffective disorder, COPD, hypertension, hyperlipidemia, MV repair, PAF (not on anticoagulation), CAD. Presented with altered mental status in context of an acute UTI. With her history of schizoaffective disorder she has previously required structured living due to recurrent erratic behaviors and psychosis. She has had a prolonged hospitalization while trying to determine her disposition. #AMS | Catatonia | Schizoaffective disorder Meds prior to admission: Seroquel, Trazodone, and Doxepin --> Currently on Seroquel 150mg and Doxepin 75mg. Psych following --> saw on 02/26. Patient goes through periods of time where she refuses to open eyes or speak to staff. During this behavioral episodes, she does not have medical decision making capabilities. Typically episode is precipitated by her not getting what she wants. Episodes are self limited & last 1-3 days. #Abdominal pain w/ vague reports of abdominal pain occasionally but appears comfortable at bedside. KUB: gas distended colonic loops. Monitor BM's Refusing any form of bowel regimen right now - continue to discuss that she has constipation & would feel better if she were to be compliant. #Neuropathy Continue gabapentin 100 mg QAM, 300 mg HS #B12 deficiency/low normal level (257) - continue cyanocobalamin #Vitamin D deficiency - continue vitamin D supplement #HLD - continue atorvastatin #Hypothyroidism - TSH normal at 1.4. Continue levothyroxine when able #GERD - continue Protonix #COPD - no flare at this time DVT proph: at risk of DVT due to laying in bed for days at a time, refusing heparin SC & PO Eliquis Dispo: continued inpatient stay for eventual placement. Case management following and attempting to find suitable housing. Admission and Anticipated Discharge Date Admission Date: December 25, 2024 Joey Andrews was seen & examined this morning. She admitted to intermittent chest discomfort and itchy skin at time of visit today. SHe was agreeable to an EKG and trying hydrocortisone cream. Physical Exam Physical Exam: General: NAD, VS: BP 94/61; P78; R16; T36.5C Resp: normal respiratory effort Extremities: no edema Neuro: A&O x3, Skin: intact, patchy areas of erythema over b/l arms & b/l legs. Results & Data Results & Data Vital Signs (Past 12 Hours) Vital Signs Temp Pulse Resp BP Pulse Ox O2 Del Method 03/01/25 07:00 36.5 C 78 16 94/61 L 98 Room Air PG Care Time/CCT Total # of Minutes Spent Total Time Spent with Patient: Total time spent is greater than 50% in coordination of care (as documented) at patient's floor/unit and/or counseling patient: Coding Level of Care Code 85788 SUB INP/OBS CARE 06/24MIN Diagnoses Schizoaffective disorder F25.9 COPD, moderate J44.9 Hypothyroidism E03.9 Neuropathy G62.9 Dehydration E86.0 History of atrial fibrillation Z86.79 History of mitral valve repair Z98.890 Constipation K59.00 AMS (altered mental status) R41.82"
[2025-03-01] MEDS: HYDROCORTISONE 2.5% CR 30 GM TUBE EXT SCH (17:29)
--- NOTE | 2025-03-01 18:16 | Electrocardiogram Report ---
Test Reason : Blood Pressure : */* mmHG Vent. Rate : 70 BPM Atrial Rate : 70 BPM P-R Int : 162 ms QRS Dur : 96 ms QT Int : 434 ms P-R-T Axes : 80 15 65 degrees QTcB Int : 468 ms Normal sinus rhythm Low voltage QRS Possible Lateral infarct , age undetermined Inferior infarct (cited on or before 31-Oct-2010) Abnormal ECG When compared with ECG of 15-Jan-2025 13:57, Borderline criteria for Lateral infarct are now Present Confirmed by Ga Teague ([id number] on 03/01/2025 6:16:14 PM Referred By: REFERRED SELF Confirmed By: Ga Teague
[2025-03-01] MEDS: MoRPHine SULFATE 2 MG/ML CARP IV STA (22:05)
--- NOTE | 2025-03-02 12:28 | Hospitalist Progress Note ---
"Date of Service March 02, 2025 Assessment & Plan (1) Schizoaffective disorder: (2) COPD, moderate: (3) Hypothyroidism: (4) Neuropathy: (5) Dehydration: (6) History of atrial fibrillation: (7) History of mitral valve repair: (8) Constipation: (9) AMS (altered mental status): Plan 64yo female with schizoaffective disorder, COPD, hypertension, hyperlipidemia, MV repair, PAF (not on anticoagulation), CAD. Presented with altered mental status in context of an acute UTI. With her history of schizoaffective disorder she has previously required structured living due to recurrent erratic behaviors and psychosis. She has had a prolonged hospitalization while trying to determine her disposition. #AMS | Catatonia | Schizoaffective disorder Meds prior to admission: Seroquel, Trazodone, and Doxepin --> Currently on Seroquel 150mg and Doxepin 75mg. Psych following --> saw on 02/26. Patient goes through periods of time where she refuses to open eyes or speak to staff. During this behavioral episodes, she does not have medical decision making capabilities. Typically episode is precipitated by her not getting what she wants. Episodes are self limited & last 1-3 days. #Abdominal pain w/ vague reports of abdominal pain occasionally but appears comfortable at bedside. KUB: gas distended colonic loops. Monitor BM's Refusing any form of bowel regimen right now - continue to discuss that she has constipation & would feel better if she were to be compliant. #Neuropathy Continue gabapentin 100 mg QAM, 300 mg HS #B12 deficiency/low normal level (257) - continue cyanocobalamin #Vitamin D deficiency - continue vitamin D supplement #HLD - continue atorvastatin #Hypothyroidism - TSH normal at 1.4. Continue levothyroxine #GERD - continue Protonix #COPD - no flare at this time DVT proph: at risk of DVT due to laying in bed for days at a time, refusing heparin SC & PO Eliquis Case management following and attempting to find suitable housing. --> Plan is for Juliana to be discharge to [place] on 03/05 Admission and Anticipated Discharge Date Admission Date: December 25, 2024 Subjective Juliana was seen & examined this morning. She was lying in bed, refused to answer any questions. Physical Exam Physical Exam: General: NAD, VS: BP 105/66; P100; R16; T36.9C Resp: normal respiratory effort Neuro: refusing to open eyes or respond to staff Skin: intact, no lesions noted Results & Data Results & Data Vital Signs (Past 12 Hours) Vital Signs Temp Pulse Resp BP Pulse Ox O2 Del Method 03/02/25 07:00 36.9 C 100 H 16 105/66 95 Room Air PG Care Time/CCT Total # of Minutes Spent Total Time Spent with Patient: Total time spent is greater than 50% in coordination of care (as documented) at patient's floor/unit and/or counseling patient: Coding Level of Care Code 61864 SUB INP/OBS CARE 06/24MIN Diagnoses Schizoaffective disorder F25.9 COPD, moderate J44.9 Hypothyroidism E03.9 Neuropathy G62.9 Dehydration E86.0 History of atrial fibrillation Z86.79 History of mitral valve repair Z98.890 Constipation K59.00 AMS (altered mental status) R41.82"
--- NOTE | 2025-03-03 11:57 | Hospitalist Progress Note ---
"Date of Service March 03, 2025 Assessment & Plan (1) Schizoaffective disorder: (2) COPD, moderate: (3) Hypothyroidism: (4) Neuropathy: (5) Dehydration: (6) History of atrial fibrillation: (7) History of mitral valve repair: (8) Constipation: (9) AMS (altered mental status): Plan 64yo female with schizoaffective disorder, COPD, hypertension, hyperlipidemia, MV repair, PAF (not on anticoagulation), CAD. Presented with altered mental status in context of an acute UTI. With her history of schizoaffective disorder she has previously required structured living due to recurrent erratic behaviors and psychosis. She has had a prolonged hospitalization while trying to determine her disposition. #AMS | Catatonia | Schizoaffective disorder Currently on Seroquel 150mg and Doxepin 75mg. Psych following --> saw on 02/26. Patient goes through periods of time where she refuses to open eyes or speak to staff. During this behavioral episodes, she does not have medical decision making capabilities. Typically episode is precipitated by her not getting what she wants. Episodes are self limited & last 1-3 days. #Abdominal pain w/ vague reports of abdominal pain occasionally but appears comfortable at bedside. KUB: gas distended colonic loops. Monitor BM's Refusing any form of bowel regimen right now - continue to discuss that she has constipation & would feel better if she were to be compliant. #Neuropathy Continue gabapentin 100 mg QAM, 300 mg HS #B12 deficiency/low normal level (257) - continue cyanocobalamin #Vitamin D deficiency - continue vitamin D supplement #HLD - continue atorvastatin #Hypothyroidism - TSH normal at 1.4. Continue levothyroxine #GERD - continue Protonix #COPD - no flare at this time DVT proph: at risk of DVT due to laying in bed for days at a time, refusing heparin SC & PO Eliquis Case management following and attempting to find suitable housing. --> Plan is for Juliana to be discharge to [place] on 03/05 Admission and Anticipated Discharge Date Admission Date: December 25, 2024 Subjective Juliana was seen & examined this morning. She was lying in bed, refusing to open eyes or speak. Nursing attempted to get vitals this AM in which patient aroused to refuse them. She has refused her medications today as well. Physical Exam Physical Exam: General: lying in bed, does not open eyes or speak when spoken to. PG Care Time/CCT Total # of Minutes Spent Total Time Spent with Patient: Total time spent is greater than 50% in coordination of care (as documented) at patient's floor/unit and/or counseling patient: Coding Level of Care Code 24057 SUB INP/OBS CARE 06/24MIN Diagnoses Schizoaffective disorder F25.9 COPD, moderate J44.9 Hypothyroidism E03.9 Neuropathy G62.9 Dehydration E86.0 History of atrial fibrillation Z86.79 History of mitral valve repair Z98.890 Constipation K59.00 AMS (altered mental status) R41.82"
[2025-03-03 22:26] VITALS: O2SAT 94
[2025-03-04 10:31] VITALS: BP 107/66; PULSE 70; RESP 18; TEMP 97.3
--- NOTE | 2025-03-04 11:29 | Hospitalist Progress Note ---
"Date of Service March 04, 2025 Assessment & Plan (1) Schizoaffective disorder: (2) COPD, moderate: (3) Hypothyroidism: (4) Neuropathy: (5) Dehydration: (6) History of atrial fibrillation: (7) History of mitral valve repair: (8) Constipation: (9) AMS (altered mental status): Plan 64yo female with schizoaffective disorder, COPD, hypertension, hyperlipidemia, MV repair, PAF (not on anticoagulation), CAD. Presented with altered mental status in context of an acute UTI. With her history of schizoaffective disorder she has previously required structured living due to recurrent erratic behaviors and psychosis. She has had a prolonged hospitalization while trying to determine her disposition. #AMS | Catatonia | Schizoaffective disorder Currently on Seroquel 150mg and Doxepin 75mg. Psych following --> saw on 02/26. Patient goes through periods of time where she refuses to open eyes or speak to staff. During this behavioral episodes, she does not have medical decision making capabilities. Typically episode is precipitated by her not getting what she wants. Episodes are self limited & last 1-3 days. #Constipation - refuses daily bowel regimen therefore has been discontinued. prn Colace/Miralax #Neuropathy Continue gabapentin 100 mg QAM, 300 mg HS #B12 deficiency/low normal level (257) - continue cyanocobalamin #Vitamin D deficiency - continue vitamin D supplement #HLD - continue atorvastatin #Hypothyroidism - TSH normal at 1.4. Continue levothyroxine #GERD - continue Protonix #COPD - no flare at this time DVT proph: at risk of DVT due to laying in bed for days at a time, refusing h eparin SC & PO Eliquis Case management following and attempting to find suitable housing. --> Plan is for Juliana to be discharge to [place] on 03/05 Admission and Anticipated Discharge Date Admission Date: December 25, 2024 Subjective Juliana was seen & examined this morning. She was pleasant at time of encounter. Reports to be feeling well today. Physical Exam Physical Exam: General: NAD, VS: BP 107/66; P70; R18; T36.3C Resp: normal respiratory effort Extremities: Moves all extremities, no edema Neuro: A&O x3 Skin: intact, no lesions noted Results & Data Results & Data Vital Signs (Past 12 Hours) Vital Signs Temp Pulse Resp BP Pulse Ox O2 Del Method 03/04/25 08:00 36.3 C L 70 18 107/66 94 Room Air PG Care Time/CCT Total # of Minutes Spent Total Time Spent with Patient: Total time spent is greater than 50% in coordination of care (as documented) at patient's floor/unit and/or counseling patient: Coding Level of Care Code 56646 SUB INP/OBS CARE 06/24MIN Diagnoses Schizoaffective disorder F25.9 COPD, moderate J44.9 Hypothyroidism E03.9 Neuropathy G62.9 Dehydration E86.0 History of atrial fibrillation Z86.79 History of mitral valve repair Z98.890 Constipation K59.00 AMS (altered mental status) R41.82"
--- NOTE | 2025-03-05 11:05 | Discharge Summary ---
Discharge Summary Date of Service March 05, 2025 Principal Dx & Hospital Course #1 = Principal Diagnosis (1) Schizoaffective disorder: (2) COPD, moderate: (3) Hypothyroidism: (4) Neuropathy: (5) Dehydration: (6) History of atrial fibrillation: (7) History of mitral valve repair: (8) Constipation: (9) AMS (altered mental status): Plan This patient is a 64yo female with schizoaffective disorder, COPD, hypertension, hyperlipidemia, MV repair, PAF (not on anticoagulation), CAD. She originally presented to our hospital with altered mental status in context of an acute UTI. Treated with full course of antibiotics while inpatient With her history of schizoaffective disorder, she has previously required structured living due to recurrent erratic behaviors and psychosis. She had a prolonged hospitalization while trying to determine her disposition. #AMS | Catatonia | Schizoaffective disorder Trazodone has been discontinued during this admission Psych following --> saw on 02/26. Per review of psychiatry/hospitalist notes on 02/26: At this time does not have decision making capacity in regard to dispositional decisions. Juliana cannot give reasons for decision, risks/benefits, or alternatives. Rec no change in medications at this time. By report she has a longstanding history of periods where she refuses medication, lays in bed and will not open eyes for staff, etc. - this is a behavioral response and is not due to medications. Typically, these episodes are precipitated by her not getting what she wants. Episodes are self limited & last 1-3 days. Will plan to discharge patient on Seroquel 150 mg and doxepin 75 mg nightly at 7 PM #Neuropathy bilateral foot neuropathy. Gabapentin dose adjusted throughout admission and current regimen appears to be beneficial and well-tolerated Continue gabapentin 100 mg QAM, 300 mg HS #Constipation - refuses daily bowel regimen therefore has been discontinued. PRN Colace/Miralax on discharge. #B12 deficiency/low normal level (257) - continue cyanocobalamin #Vitamin D deficiency - continue vitamin D supplement #HLD - continue atorvastatin #Hypothyroidism - TSH normal at 1.4. Continue levothyroxine #GERD - continue Protonix #COPD - no flare at this time DVT proph: at risk of DVT due to laying in bed for days at a time; however, patient has consistently refused heparin SQ and p.o. Eliquis Day of discharge 10/6: VSS: BP 107/66, pulse 70 bpm, SpO2 94% on RA Patient is lying in bed in no acute distress. Patient is conversational this morning. She reports that she slept "fair". She has few complaints at this time other than her intermittent low/transverse rib pain and upper and lower back pain. Patient is A&O x 3. She notes that the month is February, she knows that she is in the hospital, and she knows that it is Wednesday. When asked if she is aware that she will be discharged about lower today, she reports that she does not want to go. When asked why, she says she has concerns about her back pain. When asked what medications have worked for her during her hospital stay, she reports that no medications have worked. She reports that the pain is superficial and intermittent. When offered a lidocaine patch, she reports she is not sure if it would help. ROS: Patient endorses low rib pain and back pain, intermittent chest pain, as well as dry cough and diarrhea. Patient denies fever, chills, lightheadedness, SOB, hemoptysis, abdominal pain, nausea, or vomiting. Disposition: Discharge to [facility] Notes For Next Care Provider Patient was originally admitted for an acute UTI, which quickly resolved with antibiotics. She had a prolonged hospitalization (70 days) due to placement concerns and attempting to find suitable housing. Patient has a history of schizoaffective disorder, and will intermittently go into catatonic episodes. She was evaluated by our psychiatry team, and it was felt that these episodes are a behavioral response rather than due to medications. Medications were adjusted throughout her hospital stay. Prior to arrival she was on Seroquel, trazodone, doxepin. On discharge, we will continue her on Seroquel 150 mg and doxepin 75 mg. We also adjusted her gabapentin dosage with course of hospital stay for neuropathy, and feel that she is safe to go on gabapentin 100 mg QAM, and 300 mg HS. Please reach out with any questions or concerns. Admission HPI Per Admitting Provider Pt is a 64 y/o female with pmh of HTN, HLD, Anxiety, ADHD, COPD who was brought in by EMS with rightward fixed gaze and unresponsiveness. According to her boyfriend she has been like this for 3 days. No other information was given. Her cloths were not soiled and she was responding to sternal rub. Her CT head was negative in the ER. Her urine tox was + for MDMA. Pt is on doxepin, quetiapine and trazodone. It unknown if she took these meds or was taking ecstasy. Pt was noted on UA to be + for UTI. Admission Exam Per Admitting Provider GENERAL APPEARANCE NAD, Unresponsive EYES lids/conjunctiva normal. EARS/NOSE/THROAT Mucous membranes moist, nares normal, lips/teeth normal uvula midline without oral pharyngeal erythema, exudate or swelling TMs normal bilaterally. No lymphangitis/lymphedema. HEAD/NECK normocephalic atraumatic, no facial trauma, neck is supple. RESPIRATORY respiratory effort normal, speaks in full sentences, no tripod position, no accessory muscle use. Lungs clear to auscultation without rhonchi, wheezes, rales CARDIAC Regular rate and rhythm, no edema. ABDOMINAL Soft, ND/NT. No evidence of fluid wave. No pulsatile masses on exam, rebound tenderness, Donald sign or pain over Mcburney's point. MUSCLES/EXTREMITIES No abnormal range of motion, no swelling. SKIN Warm, pink and dry. No rashes, dermatoses, petechiae or lesions. NEUROLOGICAL Responding only to sternal rub PSYCH Normal mood and affect. Judgement/competence is appropriate Discharge Exam General: no acute distress; patient is responsive to questioning this morning; follows commands; non-toxic appearing; SpO2 94% on RA HEENT: normocephalic, atraumatic; PERRLA; vision and hearing intact Neck: supple; trachea midline Skin: warm, dry without signs of tenting; no cyanosis; no rashes, bruising, lesions, or erythema noted CV: chest wall NTP; RRR; S1/S2 normal; no murmurs/rubs/gallops; pulses intact and symmetric at radial, DP, and PT Lungs: no acute respiratory distress; symmetrical chest wall expansion; clear breath sounds across all lung miranda w/o adventitious sounds; no wheezing ABD: Soft, NTP; BS present; no rebound/guarding; no distention Back: No rashes or bruising on the abdomen or flanks bilaterally; patient endorses upper and lower back tenderness to palpation MSK: no tics or fasciculations; no edema noted in the LEs b/l, nonerythematous; 5/5 mattress weaver strength bilaterally; 2/5 strength in the lower extremities bilaterally when lifting leg from bed; patient demonstrates ability to wiggle toes bilaterally Neuro: Flat mood and affect; however, she response to all questioning; she is A and O x 3; fluent speech; no facial droop; no signs of catatonia (no signs of mutism, stupor, catalepsy, or rigidity); negative for waxy flexibility on exam; patient reports that sensation is intact and symmetric in the upper extremities and lower extremity bilaterally assessed via light touch Discharge Plan Discharge Items Patient Disposition: Transfer Group Home Fac Reason For Visit: MDMA TOXICITY, UTI Discharge Diagnosis: Toxicity, schizoaffective disorder, UTI Condition on Discharge: Fair Activity: Resume your previous activity Non-emergency contact: Primary Care Provider and Psychiatrist Call non-emergency contact if: you have any medication questions, your symptoms worsen, your pain is not controlled and you have a fever Follow-up/Referrals: PCP,NO [Primary Care Provider] - Diet: Regular and Low Fat Addtl Attending Provider Instructions: You have been hospitalized for altered mental status, which was likely due to urinary tract infection as well as medication effects. On arrival, imaging of your head was negative for acute stroke. You were treated with an IV antibiotic (ceftriaxone) x 3 days, as well as a course of Macrobid twice daily which was completed on 01/12. However, you had a prolonged hospital stay due to evaluation for placement. Our psychiatry team was consulted, and the following medications were made over the course of her hospital stay: * Continue quetiapine 150 mg and doxepin 75 mg nightly at 7 PM * Gabapentin dosage has been adjusted to 100 mg in the morning, and 300 mg at night for your neuropathy * Trazodone has been discontinued at time of discharge Additional workup: Repeat ECHO with prior valve repair showing LVEF at 55 to 60%. Septal motion was consistent with postoperative state. No evidence of ASD. B12 borderline -- given shots and continuing on oral supplementation Vitamin D also low - please continue oral supplementation Given your vital signs and blood work have remained stable, we feel that you are safe to be discharged to [place] at this time. If you develop any new or worsening symptoms, such as increased confusion, fever, chills, inability to keep up with oral hydration, burning with urination, or increased depression/anxiety, please return to the emergency department immediately. It has been a pleasure being a part of the medical team providing for you while you have been in the hospital. Please reach out with any questions or concerns. Sincerely, The Hospital medicine team at [facility] Pending Studies at Discharge: No Stand-Alone Forms: My [facility] Skilled Items Patient informed of condition?: Yes DNR: No Discharge Level of Care: Skilled Communicable Disease: No Discharge Prognosis: Stable Lines: None Urinary Catheter: No Medications and DC Order Prescriptions: New cyanocobalamin (vitamin B-12) 500 mcg Tablet 1,000 mcg PO DAILY Qty: 30 0RF melatonin 3 mg Tablet 6 mg PO HS PRN (Reason: sleep) Qty: 30 0RF Rx Instructions: Take 2 tablets by mouth at bedtime as needed for difficulty sleeping gabapentin 300 mg Capsule 300 mg PO HS Qty: 14 0RF Rx Instructions: Take 1 capsule by mouth in the evenings gabapentin 100 mg Capsule 100 mg PO QAM Qty: 14 0RF Rx Instructions: Take 1 capsule by mouth in the morning quetiapine 150 mg tablet 150 mg PO DAILY@1900 Qty: 14 0RF Rx Instructions: Take 1 tablet daily at 7 PM doxepin 75 mg Capsule 75 mg PO DAILY@1900 Qty: 14 0RF Rx Instructions: Take 1 capsule daily at 7 PM Continued docusate sodium 100 mg Capsule 100 mg PO BID Qty: 0 0RF Patient Comments: Unable to verify OTC meds at this date/time. aspirin 81 mg tablet,delayed release (DR/EC) 81 mg PO DAILY Qty: 90 1RF Patient Comments: Unable to verify OTC meds at this date/time. omega-3 fatty acids-fish oil 684-1,200 mg Capsule,Delayed Release(Dr/Ec) 1 cap PO DAILY Qty: 30 11RF Patient Comments: Unable to verify OTC meds at this date/time. levothyroxine [Synthroid] 88 mcg Tablet 88 mcg PO DAILYBB Qty: 30 2RF ascorbic acid (vitamin C) [Vitamin C] 1,000 mg Tablet 1 g PO DAILY Patient Comments: Unable to verify OTC meds at this date/time. acetaminophen 325 mg Tablet 650 mg PO Q4H PRN (Reason: PAIN OR FEVER) Patient Comments: Unable to verify OTC meds at this date/time. Saline Nasal Mist 0.65 % Aerosol,[place] 2 spray INTRANASAL DAILY PRN (Reason: CONGESTION OR NASAL DRYNESS) Patient Comments: Unable to verify OTC meds at this date/time. Metamucil (sugar) Powder 2 tsp PO QAM Patient Comments: Unable to verify OTC meds at this date/time. cholecalciferol (vitamin D3) [Vitamin D3] 125 mcg (5,000 unit) Tablet 125 mcg PO DAILY Patient Comments: Unable to verify OTC meds at this date/time. atorvastatin 20 mg tablet 20 mg PO DAILY potassium chloride 10 mEq tablet extended release 10 meq PO DAILY guaifenesin 100 mg/5 mL Liquid 200 mg PO Q4H PRN (Reason: Cough/Congestion) pantoprazole 40 mg tablet,delayed release (DR/EC) 40 mg PO DAILY alum-mag hydroxide-simeth 200-200-20 mg/5 mL Suspension 10 ml PO QID PRN (Reason: Stomach Issues) Patient Comments: Unable to verify OTC meds at this date/time. Rx Instructions: administer between meals and at bedtime Discontinued gabapentin 600 mg tablet 600 mg PO TID trazodone 50 mg tablet 100 mg PO HS doxepin 100 mg capsule 100 mg PO DAILY gabapentin 100 mg capsule 100 mg PO BID Rx Instructions: Give w/ breakfast and lunch quetiapine 50 mg tablet extended release 24 hr 100 mg PO QPM Discharge Orders: Discharge Order (Routine); Ordered 03/05/25 Ordered By: Ritesh Borja Admission Data Admit Date/Time: 12/25/24 13:43 Attending Provider: Earl Figueroa Admit Provider: Eber Beltran Primary Care Provider: PCP,NO Other Providers: Terrie Daley; Jean-Claude Hackett; Hattie Frey; Ella Pepe; Brandon Jimenez; Jossy Kaur; Drew Aguiar; [facility]; [facility] [place]; [facility],; [facility]; Eber Beltran; [facility]; Светлана Ramos; [facility], [facility]; [facility]; [facility]; [facility]; [facility]; [facility] Stay Data Consultations 12/25/24 12:14 ED Decision to Admit Stat 12/25/24 15:23 Consult Psychiatry Routine 01/01/25 15:13 Consult Psychiatry Routine 01/24/25 12:22 Consult Psychiatry Routine Diagnostic Imagining Performed 12/25/24 11:12 CT head/brain wo con Stat 01/10/25 17:45 CT abd pelvis wo con Routine Pending Results Patient Have Any Pending Studies at Discharge: Yes Discharge Instructions Given to Patient (Per Discharging Provider) You have been hospitalized for altered mental status, which was likely due to urinary tract infection as well as medication effects. On arrival, imaging of your head was negative for acute stroke. You were treated with an IV antibiotic (ceftriaxone) x 3 days, as well as a course of Macrobid twice daily which was completed on 01/12. However, you had a prolonged hospital stay due to evaluation for placement. Our psychiatry team was consulted, and the following medications were made over the course of her hospital stay: * Continue quetiapine 150 mg and doxepin 75 mg nightly at 7 PM * Gabapentin dosage has been adjusted to 100 mg in the morning, and 300 mg at night for your neuropathy * Trazodone has been discontinued at time of discharge Additional workup: Repeat ECHO with prior valve repair showing LVEF at 55 to 60%. Septal motion was consistent with postoperative state. No evidence of ASD. B12 borderline -- given shots and continuing on oral supplementation Vitamin D also low - please continue oral supplementation Given your vital signs and blood work have remained stable, we feel that you are safe to be discharged to [place] at this time. If you develop any new or worsening symptoms, such as increased confusion, fever, chills, inability to keep up with oral hydration, burning with urination, or increased depression/anxiety, please return to the emergency department immediately. It has been a pleasure being a part of the medical team providing for you while you have been in the hospital. Please reach out with any questions or concerns. Sincerely, The Hospital medicine team at [facility] Total Time Total Time Spent Total Time Spent (In Minutes): 45 Coding [place] [address] INP/OBS DISCH >30 MIN Patient Type Established History Comprehensive Exam Comprehensive Medical Decision Making High Complexity Diagnoses Schizoaffective disorder F25.9 COPD, moderate J44.9 Hypothyroidism E03.9 Neuropathy G62.9 Dehydration E86.0 History of atrial fibrillation Z86.79 History of mitral valve repair Z98.890 Constipation K59.00 AMS (altered mental status) R41.82
== END 2025-03-05 13:44 | DRG 885 ==
LOC: ED 11:06 → EDINP 13:43 → SUATTDRO 13:43 → 2N 16:41 → 3E 01-09 16:40 → 3W 02-27 23:29